=== PATIENT | male | born 1940 | race Caucasian/White ===

== ENCOUNTER 2016-04-16 06:06 | Inpatient (IN) | payer OTHER ==
[2016-04-15 08:56] VITALS: BMI 31.0
[~2016-04-16] VITALS: Ht 177.8 cm; Wt 97.7 kg
[2016-04-16] VITALS (9 sets, daily range): BP systolic 113–148; BP diastolic 65–94; PULSE 59–90; TEMP 36.3–36.8; O2SAT 92–97; Ht 177.8 cm; Wt 97.7 kg
[~2016-04-16 06:06] MED LIST: ACET-1311 PO; APIX1TAB3 PO; DUTA0.5C PO; LACTATED RINGER'S 1000ML 1,000 ML IV SCH; MULT-506 PO; PRLSR20 PO
[2016-04-16] MEDS ORDERED: ROCURONIUM BROMIDE 10 MG/ML 5 ML VIAL ONE (06:28)
[2016-04-16] MEDS ORDERED: ONDANSETRON INJ 2 MG/ML 2 ML VIAL ONE (06:28)
[2016-04-16] MEDS ORDERED: PHENYLEPHRINE HCL INJ 10 MG/ML VIAL ONE (06:28)
[2016-04-16] MEDS ORDERED: DEXAMETHASONE SOD INJ 4 MG/ML VIAL ONE (06:28)
[2016-04-16] MEDS ORDERED: SUCCINYLCHOLINE CHLORIDE 20 MG/ML 10 ML VIAL IV ONE (06:28)
[2016-04-16] MEDS ORDERED: GLYCOPYRROLATE INJ 0.2 MG/ML VIAL ONE (06:28)
[2016-04-16] MEDS ORDERED: FENTANYL CITRATE INJ 50 MCG/1 ML 2 ML VIAL ONE ×2 (06:28→09:27)
[2016-04-16] MEDS ORDERED: LIDOCAINE HCL 2% 2 ML VIAL (20MG/ML) ONE (06:28)
[2016-04-16] MEDS ORDERED: NEOSTIGMINE METHYLSULFATE 5 MG/5 ML SYR ONE (06:28)
[2016-04-16] MEDS ORDERED: EpHEDrine SULFATE INJ 50 MG/ML AMP ONE (06:28)
[2016-04-16] MEDS ORDERED: PROPOFOL IV EMULSION 10 MG/ML 20 ML VIAL IV ONE (06:28)
[2016-04-16] MEDS ORDERED: MIDAZOLAM HCL 1 MG/ML 2ML VIAL ONE (06:28)
[2016-04-16] MEDS ORDERED: BUPIVACAINE LIPOSOME 1/3% 266 MG/20 ML VIAL INFIL ONE (06:54)
--- NOTE | 2016-04-16 08:21 | History & Physical Bridge Note ---
H&P Re-Evaluation Bridge Note: I have examined the patient, reviewed the History & Physical and in the interval since the performance of the History & Physical I have noted the following changes of clinical significance: No changes noted
[2016-04-16] MEDS ORDERED: MEPERIDINE HCL 25 MG/ML CARP IV PRN (08:30)
[2016-04-16] MEDS ORDERED: ATROPINE SULFATE 0.1 MG/ML 5ML SYR IV PRN (08:30)
[2016-04-16] MEDS ORDERED: ONDANSETRON INJ 2 MG/ML 2 ML VIAL IV PRN ×2 (08:30→11:30)
[2016-04-16] MEDS ORDERED: HYDROmorphone INJ 1 MG/ML SYR IV PRN (08:30)
[2016-04-16] MEDS ORDERED: EpHEDrine SULFATE INJ 50 MG/ML AMP IV PRN (08:30)
[2016-04-16] MEDS ORDERED: LABETALOL HCL IV 5 MG/ML 20ML IV PRN (08:30)
--- NOTE | 2016-04-16 10:06 | DIAGNOSTIC IMAGING REPORT ---
FLUOROSCOPIC IMAGES OF THE CHEST CLINICAL HISTORY: NAVIGATIONAL BRONCH WITH FIDUCIAL MARKERS COMPARISON STUDY: Chest CT February 26, 2016. Fluoroscopy time: 1 minute and 40 seconds. FINDINGS: 2 fluoroscopic images were submitted for interpretation during a bronchoscopy. These images demonstrate placement of a fiducial marker within the left upper lobe at site of nodule shown on CT of February 26, 2016. IMPRESSION: Fluoroscopic images from bronchoscopy with fiducial placement within the left upper lobe. Electronically signed by: Peter Smith M.D. 04/16/2016 10:04 AM Dictated Date/Time: 04/16/2016 10:03 AM
[2016-04-16] MEDS ORDERED: MIX: 266 MG EXPAREL + 40 ML INJ SALINE INJ ONE (10:17)
[2016-04-16] MEDS ORDERED: PROGEL PLEURAL AIR LEAK SEALANT 4ML TOP ONE (10:59)
[2016-04-16] MEDS ORDERED: MoRPHine SULFATE 2 MG/ML CARP IV PRN ×2 (11:30→14:00)
[2016-04-16] MEDS: FENTANYL CITRATE INJ 50 MCG/1 ML 2 ML VIAL IV PRN ×2 (12:00→12:25)
--- NOTE | 2016-04-16 12:27 | DIAGNOSTIC IMAGING REPORT ---
CHEST ONE VIEW PORTABLE CLINICAL HISTORY: s/p MAURICIO wedge resection COMPARISON STUDY: Chest CT February 26, 2016 FINDINGS: A left chest tube directed to the apex is in place. Surgical staple line within the left upper lung is noted. There is no pneumothorax. There is gas within the left chest wall as expected. Bibasilar and right midlung opacity is present. There is also mild left upper lung opacity. IMPRESSION: 1. Left chest tube in place. No pneumothorax. 2. Left upper lobe airspace opacity which is likely postsurgical. 3. Scattered additional bilateral opacities which could reflect atelectasis or consolidation. Electronically signed by: Peter Smith M.D. 04/16/2016 12:26 PM Dictated Date/Time: 04/16/2016 12:22 PM
--- NOTE | 2016-04-16 12:54 | Anesthesiology Progress Note ---
Anesthesia Post Op Note Date & Time Apr 16, 2016 at 12:53 Vital Signs Pain Intensity: 4 Vital Signs Past 12 Hours Date Time Temp Pulse Resp B/P Pulse Ox O2 Delivery O2 Flow Rate FiO2 04/16/16 12:45 36.2 60 16 97/76 97 Nasal Cannula 2 04/16/16 12:35 55 15 110/66 96 Nasal Cannula 2 04/16/16 12:25 36.2 63 22 122/59 95 Nasal Cannula 2 04/16/16 12:15 54 12 107/69 96 Nasal Cannula 2 118/53 04/16/16 12:05 36.0 52 15 108/52 99 Nasal Cannula 2 108/52 04/16/16 11:55 51 19 93/60 99 Mask 10 99/47 04/16/16 11:47 54 19 95 Mask 10 104/49 04/16/16 11:42 35.6 57 18 115/54 95 Mask 10 04/16/16 06:54 36.5 71 16 148/94 93 Room Air 04/16/16 06:36 36.5 71 16 148/94 92 Room Air Notes Mental Status: alert / awake / arousable, participated in evaluation Pt Amnestic to Procedure: Yes Nausea / Vomiting: adequately controlled Pain: adequately controlled Airway Patency, RR, SpO2: stable & adequate BP & HR: stable & adequate Hydration State: stable & adequate Anesthetic Complications: no major complications apparent
[2016-04-16] MEDS: METOCLOPRAMIDE HCL INJ 5 MG/ML 2 ML VIAL IV. SCH ×2 (14:26→21:06)
[2016-04-16] MEDS: ACETAMINOPHEN IV 1,000 MG in EMPTY BAG 0 ML IV SCH ×2 (14:26→21:05)
[2016-04-16] MEDS: D5W AND 1/2NSS 1,000 ML IV SCH ×2 (14:30→23:36)
[2016-04-16 14:46] LABS: MEAN CELL VOLUME 87.5 fL (80-100); MEAN CORPUSCULAR HEMOGLOBIN 30.4 pg (25-34); MEAN CORPUSCULAR HGB CONC 34.7 g/dl (32-36); MEAN PLATELET VOLUME 10.3 fL (7.4-10.4); PLATELET COUNT 214 K/uL (130-400); RED BLOOD COUNT 5.37 M/uL (4.7-6.1); WHITE BLOOD COUNT 15.72 K/uL (4.8-10.8)
[2016-04-16 14:53] LABS: PROTHROMBIN TIME (PATIENT) 11.2 SECONDS (9.0-12.0)
[2016-04-16 15:07] LABS: CREATININE 1.1 mg/dl (0.60-1.40)
[2016-04-16] MEDS: CEFAZOLIN IV 2,000 MG in DEXTROSE 5% 50ML 100 ML IV SCH ×2 (15:44→23:36)
[2016-04-16] MEDS: KETOROLAC TROMETHAMINE 15 MG/ML VIAL IV. SCH ×2 (16:19→23:38)
--- NOTE | 2016-04-16 20:32 | OPERATIVE REPORT ---
DATE OF OPERATION: 04/16/2016 PREOPERATIVE DIAGNOSIS: Enlarging left upper lobe mass. POSTOPERATIVE DIAGNOSIS: Inflammatory mass, left upper lobe. PROCEDURE: 1. Navigational bronchoscopy with marking of mass with methylene blue dye and a fiducial marker. 2. Left thoracoscopy with wedge resection of left upper lobe mass. SURGEON: Dr. Patel. GOLD CUTTER: AMAURY Lo. ANESTHESIA: General anesthesia endotracheal intubation using a double-lumen tube. SPECIFICS OF PROCEDURE: Mr. Edge is a 76-year-old male who has a ground-glass opacity in his left upper lobe that became more solid and larger. This is of course concerning and I saw him in the office and told he and his I would like to biopsy this as I felt it may well represent an adenocarcinoma of the lung. On 04/16/2016, the patient underwent uncomplicated navigational bronchoscopy. I placed a methylene blue dye and injected it towards the pleura that was overlying this mass which is probably between 1-2 cm intraparenchymal. I also left a fiducial marker in case we did not see the methylene blue dye. I then did a thoracoscopy on the left and came upon a nice blue otoe-[place] where we had injected the methylene blue. Using a totally thoracoscopic approach with CO2 insufflation, I had excellent visualization and I was able to wedge this mass out without difficulty. Frozen section came back as showing an inflammatory mass. It was definitely abnormal but did not have features of malignancy. At this point, I elected to close and I injected him with Exparel for intrathoracic intercostal block. He tolerated it well. I left the chest tube in place and he was extubated in the room without difficulty with minimal blood loss. PROCEDURE: The patient was brought to the operating room, laid in supine position. He was intubated with a single lumen tube. After an appropriate timeout had been called and given prophylactic antibiotics, the fiberoptic bronchoscope was placed through the endotracheal tube. I closely inspected both the right and left bronchial tree going down into the tertiary of bronchials and saw no evidence of any endobronchial lesions. He also was very little in the way of sputum. I then placed the computer navigation probe from [employer]. After registering both airways nicely, I then used the guide and went into the left upper lobe bronchus and was able to get out to the mass. It should be noted this mass was small. I then positioned myself very close to the mass and put a fiducial marker in place without difficulty under fluoroscopic guidance. We did use the radial ultrasound probe; however, I was not very happy with the appearance, but this was a semi-solid ground-glass opacity. I then directed the tip of the navigational probe towards the pleura about 1 cm or so away and injected 0.5 mL of methylene blue. We then removed the navigational probe and then the bronchoscopy without difficulty. The patient was then switched over to a double lumen tube and placed in a right lateral decubitus position. Left chest prepped, draped in usual sterile fashion. A 5 mm trocar was placed just below and anterior to the tip of the scapula and a 5 mm scope was placed. It could be seen we were intrathoracic and CO2 was infused. We got great excellent collapse of this left lung with one lung ventilation and the CO2 insufflation. I then placed a 10 mm trocar at about the seventh interspace anteriorly and at about the fourth interspace and about neck just anterior to the latissimus dorsi I put another 10 mm trocar. Going in, I was then able to manipulate the lung and came upon the blue about 2 cm in diameter blue otoe-[place]ou[place] on the left upper lobe. This was grasped and pulled upward, I took a generous biopsy using Endo-GUSTAVO stapler and wedged this out and removed the Endobag. While waiting for this to come back, I took down adhesions between the left upper lobe and the mediastinum which were difficult, quite adhesed. It was quite clear why but we did get into some minor oozing. We identified the phrenic nerve and care was taken to avoid injure this. I then dissected out the hilum and identified the main left pulmonary artery as well as the left upper lobe vein. The frozen section came back as an inflammatory mass. At this point, we elected to stop. 266 mg of Exparel was mixed in a total of 60 mL of solution and was used to inject from the 2nd to the 11th rib in each intercostal space to fill the space. The anterior thoracoscopy port then had a 24-Comoran chest tube directed towards the apex, sutured in place with heavy silk suture. 0 Vicryl was used to close the muscle layer of the 10 mm scope and 3-0 Vicryl was used in a subcuticular fashion to close the skin edges of the superior and posterior incisions. Heavy silk sutures were used to tie the chest tube in place. The patient tolerated it well with no air leak at the conclusion of the case. He was awake without difficulty and transported back to the post-anesthesia care unit in stable condition. I attest to the content of the Intraoperative Record and any orders documented therein. Any exceptio ns are noted below.
[2016-04-16] MEDS: DOCUSATE SODIUM 100 MG CAP PO SCH (21:04)
[2016-04-17] VITALS (9 sets, daily range): BP systolic 125–174; BP diastolic 70–81; PULSE 56–76; TEMP 36.3–36.7; O2SAT 92–95
[2016-04-17] MEDS: ACETAMINOPHEN IV 1,000 MG in EMPTY BAG 0 ML IV SCH (05:20)
[2016-04-17] MEDS: METOCLOPRAMIDE HCL INJ 5 MG/ML 2 ML VIAL IV. SCH (05:21)
[2016-04-17 07:16] LABS: BASO % 0.1 %; BASO ABS # 0.01 K/uL (0-0.2); COMPLETE YES; EOS % 0.2 %; HEMATOCRIT 43.9 % (42-52); IG% 0.2 %; LYMPH % 10.6 %; LYMPH ABS # 1.37 K/uL (1.2-3.4); MEAN CELL VOLUME 86.9 fL (80-100); MEAN CORPUSCULAR HEMOGLOBIN 29.3 pg (25-34); MEAN CORPUSCULAR HGB CONC 33.7 g/dl (32-36); MEAN PLATELET VOLUME 10.5 fL (7.4-10.4); MONO % 13.1 %; NEUT % 75.8 %; PLATELET COUNT 221 K/uL (130-400); RED BLOOD COUNT 5.05 M/uL (4.7-6.1); WHITE BLOOD COUNT 12.89 K/uL (4.8-10.8)
[2016-04-17] MEDS: DOCUSATE SODIUM 100 MG CAP PO SCH ×2 (07:22→20:25)
[2016-04-17] MEDS: KETOROLAC TROMETHAMINE 15 MG/ML VIAL IV. SCH ×3 (07:22→23:40)
[2016-04-17] MEDS: MULTIVITAMIN TAB PO SCH (07:22)
[2016-04-17] MEDS: PANTOprazole SOD 40 MG TAB PO SCH (07:22)
[2016-04-17] MEDS: ENOXAPARIN 40 MG/0.4 ML SYR SQ SCH (07:23)
[2016-04-17 07:41] LABS: CALCIUM 8.7 mg/dl (8.5-10.1); POTASSIUM 4.1 mmol/L (3.5-5.1)
[2016-04-17] MEDS ORDERED: NURSING VERBAL MED ORDER ONE (09:30)
--- NOTE | 2016-04-17 10:11 | SURGERY PROGRESS NOTE ---
DATE: 04/17/2016 DATE: 04/17/2016. Mr. Edge is seen today 1 day status post a navigational bronchoscopy with marking of a left upper lobe ground-glass opacity with a fiducial marker and methylene blue. I wedged this out on 04/16/2016 and frozen section shows this to be inflammatory. We then closed and I was quite happy with him, however he had an air leak last night that I had not seen earlier. His air leak is small but persistent this morning. He has no subQ air. He has drained very little. I was quite happy with his x-ray. I explained to the patient and his that he is going to have to wait until this leak stops and it is small and hopefully that will be in the next day or so. It is important to note patient eating well. He has been up and ambulating. We will stop all his IVs and have him work on his incentive spirometer. I think he does have some rhonchi in the left lung field, but not unexpected. I think he looks quite good. The pathology is still pending on this mass.
--- NOTE | 2016-04-17 10:12 | DIAGNOSTIC IMAGING REPORT ---
SINGLE VIEW CHEST CLINICAL HISTORY: Status post left upper lobe resection. FINDINGS: An AP, portable, upright chest radiograph is compared to study dated 04/16/2016 and correlated with chest CT dated 02/26/2016. The examination is degraded by portable technique, apical positioning, and patient rotation. The heart is normal for projection. The mediastinal contour is within normal limits. A left apical chest tube is unchanged in position from yesterday. Trace pleural fluid is seen at the left lung base. Sharply marginated left apical densities may represent postoperative change or a small loculated pneumothorax. The right lung is grossly clear. The skeletal structures are osteopenic. The bony thorax is grossly intact. Subcutaneous emphysema is present along the left chest wall. IMPRESSION: 1. A left apical chest tube is unchanged in position. Left apical densities with a sharp margin may represent a small loculated pneumothorax versus postoperative change. 2. The right lung appears clear. Electronically signed by: Behzad Parmar M.D. 04/17/2016 10:10 AM Dictated Date/Time: 04/17/2016 10:06 AM
[2016-04-18] VITALS (9 sets, daily range): BP systolic 129–173; BP diastolic 78–94; PULSE 73–87; TEMP 36.6–37.1; O2SAT 92–96
[2016-04-18] MEDS: MULTIVITAMIN TAB PO SCH (07:16)
[2016-04-18] MEDS: DOCUSATE SODIUM 100 MG CAP PO SCH ×2 (07:16→21:02)
[2016-04-18] MEDS: ENOXAPARIN 40 MG/0.4 ML SYR SQ SCH (07:17)
[2016-04-18] MEDS: PANTOprazole SOD 40 MG TAB PO SCH (07:17)
[2016-04-18] MEDS: KETOROLAC TROMETHAMINE 15 MG/ML VIAL IV. SCH (07:17)
--- NOTE | 2016-04-18 13:18 | SURGERY PROGRESS NOTE ---
DATE: 04/18/2016 HISTORY OF PRESENT ILLNESS: Mr. Edge was seen today on 04/18/2016, 48 hours after his thoracoscopic wedge resection. He has more of an air leak than I expected. I am happy with his chest x-ray from yesterday and he looks great clinically. He is up ambulating in the hallway. He moved his bowels. He has been eating. He is on room air with 96% saturations. He has drained very little from his chest tube. He put out 160 mL total yesterday and only 30 mL through 12 hours today. This pathology is still pending, but at this point, when his air leak resolves, we will let him go home. ROBERT
[2016-04-19 03:29] VITALS: PULSE 74; O2SAT 93
[2016-04-19 07:19] VITALS: O2SAT 93
[2016-04-19 07:29] LABS: CREATININE 0.95 mg/dl (0.60-1.40)
[2016-04-19] MEDS ORDERED: NURSING VERBAL MED ORDER ONE (07:30)
[2016-04-19] MEDS: OXYCODONE/ACETAMINOPHEN 5-325 TAB PO PRN ×3 (07:39→17:47)
[2016-04-19 07:50] VITALS: BP 144/81; PULSE 75; TEMP 36.5; O2SAT 93
--- NOTE | 2016-04-19 08:32 | Anesthesiology Progress Note ---
Anesthesia Post Op Note Date & Time Apr 19, 2016 at 08:31 Vital Signs Vital Signs Past 12 Hours Date Time Temp Pulse Resp B/P Pulse Ox O2 Delivery O2 Flow Rate FiO2 04/19/16 07:50 36.5 75 16 144/81 93 Room Air 04/19/16 07:19 93 Room Air 04/19/16 03:29 74 93 Room Air 04/18/16 23:15 Room Air 04/18/16 22:54 36.6 80 18 138/83 92 Room Air Notes Mental Status: alert / awake / arousable, participated in evaluation Pt Amnestic to Procedure: Yes Nausea / Vomiting: adequately controlled Pain: adequately controlled Airway Patency, RR, SpO2: stable & adequate BP & HR: stable & adequate Hydration State: stable & adequate Anesthetic Complications: no major complications apparent
[2016-04-19] MEDS: MULTIVITAMIN TAB PO SCH (09:39)
[2016-04-19] MEDS: DOCUSATE SODIUM 100 MG CAP PO SCH ×2 (09:39→20:57)
[2016-04-19] MEDS: ENOXAPARIN 40 MG/0.4 ML SYR SQ SCH (09:40)
[2016-04-19] MEDS: PANTOprazole SOD 40 MG TAB PO SCH (11:19)
[2016-04-19] MEDS: GABAPENTIN 100 MG CAP PO SCH ×2 (14:14→20:57)
[2016-04-19 15:31] VITALS: BP 144/83; PULSE 70; TEMP 36.6; O2SAT 93
--- NOTE | 2016-04-19 19:54 | SURGERY PROGRESS NOTE ---
DATE: 04/19/2016 Mr. Edge was seen today with his . He is ambulating in the hallway. He has a fairly significant air leak. I am going to change him over to a Heimlich valve and check a chest x-ray in the morning. He is not draining any fluid from his chest and his last x-ray had no evidence of any effusion. I am still a bit puzzled as to why he would have this significant air leak. At any rate, we will see how things look in the morning. I have explained to the patient and his I may send him home with a Heimlich valve in place.
[2016-04-19 22:40] VITALS: BP 124/77; PULSE 73; TEMP 36.5; O2SAT 92
[2016-04-20] MEDS: OXYCODONE/ACETAMINOPHEN 5-325 TAB PO PRN ×2 (02:31→08:35)
--- NOTE | 2016-04-20 06:39 | DIAGNOSTIC IMAGING REPORT ---
CHEST ONE VIEW PORTABLE CLINICAL HISTORY: Postop wedge resection. Pneumothorax. COMPARISON STUDY: 04/17/2016 FINDINGS: The heart is mildly enlarged. There is aortic tortuosity. The left-sided chest tube remains unchanged in position. There is a left apical pneumothorax the pleural separation 17 mm. There is a small amount of subcutaneous emphysema on the left. There are bibasal protocol opacities, likely atelectatic.[ IMPRESSION: 1. Postsurgical changes in the left 2. Persistent small left apical pneumothorax the pleural separation 17 mm 3. Bibasilar opacities, likely atelectatic Electronically signed by: Zan Moran M.D. 04/20/2016 6:37 AM Dictated Date/Time: 04/20/2016 6:36 AM
[2016-04-20 07:10] VITALS: BP 125/79; PULSE 70; TEMP 36.4; O2SAT 97
[2016-04-20] MEDS ORDERED: OXYC-57 PO (08:03)
[2016-04-20] MEDS ORDERED: DOCU-94 PO (08:03)
--- NOTE | 2016-04-20 08:07 | Discharge Instructions ---
Discharge Instructions Admission Reason for Admission: Left Pulmonary Nodule Discharge Discharge Diagnosis / Problem: Left Pulmonary Nodule Discharge Goals Goal(s): Learn about illness Activity Recommendations Activity Limitations: per Instructions/Follow-up section Lifting Limitations: none . Instructions / Follow-Up Instructions / Follow-Up 1. Appointment with Dr. Patel in 1 week. Office will call you with date and time of appointment. You will need to have a chest x-ray prior to appointment. 2. Do not fly until cleared to do so by Dr. Patel. 3. Drain collection chamber to chest tube as needed. 4. You may not shower until cleared to do so by Jorge Donahue. Current Hospital Diet Patient's current hospital diet: Regular Diet Discharge Diet Recommended Diet: Regular Diet Procedures Procedures Performed: Navigational Bronchoscopy with Fiducial Markers; Left Video-Assisted Thoracoscopy with Left Upper Lobe Wedge Resection Pending Studies Studies pending at discharge: no Medical Emergencies . Who to Call and When: Medical Emergencies: If at any time you feel your situation is an emergency, please call 911 immediately. . Non-Emergent Contact Non-Emergency issues call your: Surgeon Call Non-Emergent contact if: you have a fever, your pain is not controlled, wound has increased drainage . "Provider Documentation" section prepared by Jayy Ly. VTE Core Measure Inpt VTE Proph given/why not?: Enoxaparin (Lovenox)SQ
[2016-04-20] MEDS: DOCUSATE SODIUM 100 MG CAP PO SCH (08:17)
[2016-04-20] MEDS: GABAPENTIN 100 MG CAP PO SCH (08:18)
[2016-04-20] MEDS: ENOXAPARIN 40 MG/0.4 ML SYR SQ SCH (08:20)
[2016-04-20 08:23] VITALS: BP 125/79; PULSE 70; TEMP 36.4; O2SAT 97
[2016-04-20] MEDS: PANTOprazole SOD 40 MG TAB PO SCH (08:34)
[2016-04-20] MEDS: MULTIVITAMIN TAB PO SCH (08:34)
--- NOTE | 2016-04-20 08:36 | DISCHARGE SUMMARY ---
DISCHARGE DIAGNOSIS: Apparent inflammatory mass, left upper lobe. HOSPITAL COURSE: This very nice 76-year-old man who was found to have a ground-glass opacities left upper lobe became more solid and larger, and we were concerned about the possibility of a malignancy. On 04/16/2016, I brought the patient to the operating room and did a navigational bronchoscopy and marked this mass with methylene blue dye as well as a fiducial marker. I then did a thoracoscopy and could see the blue methylene dot quite nicely. We did a wedge resection of this mass and it turned out to be inflammatory. The frozen section showed inflammation. We did not see evidence of malignancy. I closed at that point. We did do an Exparel block. The patient did well. We put him on the 3rd floor and he was ambulating the night after his surgery. He had an air leak; however. He was draining very little in the way of fluid, but he had a continued air leak which was surprising as we did not have one at the time of closure. On postop day 3, we put a Heimlich valve on. He drained very little fluid and his x-ray looked quite good on the morning after on 04/20/2016. He was discharged home with a Heimlich valve. I will see him back next week. We will go over the final pathology. All the rest of his incisions look quite good. He was ambulating in the hallway. He was on room air, tolerating a house diet and had moved his bowels. We did give him Percocets to go home with in addition to his preoperative medications.
[2016-04-20 08:41] VITALS: O2SAT 97
== END 2016-04-20 08:40 | disposition home health service (06) | DRG 167 ==
LOC: ENRESERVTM → ENRESERVDT → C.ACU 06:06 → C.MSN 08:10
PROVIDERS: ADMIT Surgery; ATTEND Surgery
PROC: 0BBG4ZX Excision of Left Upper Lung Lobe, Percutaneous Endoscopic Approach, Diagnostic (ICD-10-PCS; principal; 2016-04-16 08:15)
PROC: 0BJ08ZZ Inspection of Tracheobronchial Tree, Via Natural or Artificial Opening Endoscopic (ICD-10-PCS; 2016-04-16 08:15)
DX: R91.8 Other nonspecific abnormal finding of lung field (principal); J95.812 Postprocedural air leak; N40.1 Benign prostatic hyperplasia with lower urinary tract symptoms; N39.41 Urge incontinence; R35.0 Frequency of micturition; M19.90 Unspecified osteoarthritis, unspecified site; Z79.899 Other long term (current) drug therapy; Z79.01 Long term (current) use of anticoagulants; Z87.442 Personal history of urinary calculi; Z87.440 Personal history of urinary (tract) infections; Z80.8 Family history of malignant neoplasm of other organs or systems; Z83.49 Family history of other endocrine, nutritional and metabolic diseases; Z90.49 Acquired absence of other specified parts of digestive tract; Z82.49 Family history of ischemic heart disease and other diseases of the circulatory system; Z90.79 Acquired absence of other genital organ(s); Z90.81 Acquired absence of spleen

== ENCOUNTER → 2016-04-29 | Outpatient (CLI) | payer OTHER ==
[~2016-04-29] MED LIST changes: +DOCU-94 PO; -LACTATED RINGER'S 1000ML 1,000 ML IV SCH; +OXYC-57 PO; +XRL20 PO
--- NOTE | 2016-04-29 11:53 | DIAGNOSTIC IMAGING REPORT ---
TWO VIEW CHEST CLINICAL HISTORY: Follow-up left-sided surgery. Pneumothorax. FINDINGS: PA and lateral chest radiographs are compared to study dated 04/20/2016 and correlated with chest CT dated 02/26/2016. The the PA view is degraded by patient rotation. The heart is top normal for projection. The mediastinal contour is within normal limits. A left-sided chest tube is again noted. Suture material projects over the left apex. No residual pneumothorax is clearly identified. There is minimal left basilar atelectasis. No pleural effusion is seen. The skeletal structures are osteopenic. The bony thorax is grossly intact. Minimal subcutaneous emphysema is present along the left chest wall. IMPRESSION: 1. A left apical chest tube is in place and suture material projects over the left apex. No definite pneumothorax is identified. 2. No airspace consolidation or pleural effusion is seen. Electronically signed by: Behzad Parmar M.D. 04/29/2016 11:52 AM Dictated Date/Time: 04/29/2016 11:48 AM
== END | disposition home or self-care (01) ==
LOC: C.RAD1850 11:31
PROVIDERS: ATTEND Internal Medicine
DX: R91.1 Solitary pulmonary nodule (principal)

== ENCOUNTER → 2016-05-07 | Outpatient (CLI) | payer OTHER ==
--- NOTE | 2016-05-07 10:59 | DIAGNOSTIC IMAGING REPORT ---
CHEST 2 VIEWS ROUTINE CLINICAL HISTORY: Postoperative examination. Chest tube removal. COMPARISON STUDY: Thyroid second 2017 FINDINGS: Postsurgical changes are present on the left. There is been interval removal of the left-sided chest tube. There is no pneumothorax. There is no acute parenchymal consolidation.[ IMPRESSION: Stable postsurgical changes. Interval removal of the left-sided chest tube. No evidence of pneumothorax. Electronically signed by: Zan Moran M.D. 05/07/2016 10:58 AM Dictated Date/Time: 05/07/2016 10:57 AM
== END | disposition home or self-care (01) ==
LOC: C.RAD1850 10:46
PROVIDERS: ATTEND Surgery
DX: R91.1 Solitary pulmonary nodule (principal)

== ENCOUNTER → 2016-06-14 | Outpatient (CLI) | payer OTHER ==
--- NOTE | 2016-06-14 10:37 | DIAGNOSTIC IMAGING REPORT ---
RIGHT ANKLE 3 VIEWS CLINICAL HISTORY: Right ankle pain and swelling. FINDINGS: 3 views of the right ankle are obtained. No prior studies are available for comparison at the time of dictation. The skeletal structures are osteopenic. No fracture is seen. The ankle mortise appears intact. There is a large plantar calcaneal enthesophyte. Degenerative spurring is seen along the anterior tibial plafond. No ankle joint effusion is identified. Diffuse soft tissue edema is noted. Atherosclerotic calcification is seen in the regional arteries. Venous varices are present in the medial calf. IMPRESSION: 1. Soft tissue edema with no acute bony abnormality seen in the right ankle. 2. Osteopenia and degenerative change as above. Electronically signed by: Behzad Parmar M.D. 06/14/2016 10:35 AM Dictated Date/Time: 06/14/2016 10:34 AM
== END | disposition home or self-care (01) ==
LOC: C.RAD1850 10:21
PROVIDERS: ATTEND Nurse Practitioner Family
DX: M25.571 Pain in right ankle and joints of right foot (principal); M25.471 Effusion, right ankle

== ENCOUNTER → 2016-08-04 | Outpatient (CLI) | payer OTHER ==
--- NOTE | 2016-08-04 08:06 | DIAGNOSTIC IMAGING REPORT ---
CHEST CT WITHOUT CONTRAST CT DOSE: 566.76 mGycm HISTORY: R91.1 Pulmonary nodule, [id number] TECHNIQUE: Multiaxial CT images of the chest were performed without contrast. COMPARISON: Chest CT 02/26/2016. FINDINGS: Interval sutures material within the left upper lobe suggesting prior wedge resection. However, the 12 mm mixed groundglass and solid nodule appears to still be present and is immediately posterior to the suture material best seen on image 64 of 311. Thickening along the suture material favors postoperative change. Stable 3 mm nodule within the left lower lobe on image 200. Stable punctate calcified granuloma within the right upper lobe on image 173. No new pulmonary nodule identified. No pleural effusions. No pneumothorax. The central airways are patent. Normal adrenal glands. Stable hypodense lesions within the liver. The dominant 6 cm lesion demonstrates central calcification. The heart is normal in size. Normal caliber thoracic aorta. A stable 3 mm groundglass nodule within the left upper lobe on image 93. IMPRESSION: 1. Interval suture material within the left upper lobe suggesting prior wedge resection. However, the 12 mm mixed groundglass and solid nodule appears to be present despite the wedge resection and is located immediately posterior to the suture material as described above. Repeat wedge resection should be considered as this nodule is considered neoplastic until proven otherwise. 2. Additional stable subcentimeter nodules as described above. No new pulmonary nodules identified. Electronically signed by: Emir Velazquez M.D. 08/04/2016 8:04 AM Dictated Date/Time: 08/04/2016 7:52 AM
== END | disposition home or self-care (01) ==
LOC: C.CTS 07:28
PROVIDERS: ATTEND Surgery
DX: R91.8 Other nonspecific abnormal finding of lung field (principal)

== ENCOUNTER 2016-11-04 16:12 | Emergency (ER) | payer OTHER ==
[~2016-11-04] VITALS: Ht 175.3 cm; Wt 104.1 kg
[~2016-11-04 16:12] MED LIST changes: -XRL20 PO
[2016-11-04 16:18] VITALS: TEMP 36.5; Ht 175.3 cm; Wt 104.1 kg
[2016-11-04] MEDS ORDERED: ALUMINUM/MAGNESIUM SUSP 30 ML UDC PO STA (16:45)
--- NOTE | 2016-11-04 16:47 | EMERGENCY ROOM VISIT NOTE ---
History Report prepared by Yue: King Fisher Under the Supervision of: Dr. Julieta Do D.O. First contact with patient: 16:34 Chief Complaint: CHEST PAIN Stated Complaint: CHEST PAINS Nursing Triage Summary: Left sided pressure/sharp CP for a few weeks intermittently. Denies CP at this time. Pt verbalizes "I have a lot of acid in my mouth, the pain came back today after I ate an ice cream cone but it is gone now". Hx A. Fib and PEs, takes Xarelto. History of Present Illness The patient is a 76 year old male with a history of atrial fibrillation and DVT' s who presents to the Emergency Room with complaints of episodes of left-sided chest pain that started 2 weeks ago. He says that the pain is only on the left side, and is a little sharp with no radiation. The patient says that the episodes only last around 5 to 10 minutes, and nothing in particular typically triggers it. He notes that during the episodes, his hands get a little clammy and he has to take a deep breath, but he denies any lightheadedness, dizziness, or nausea. The patient adds that earlier today, he ate an ice cream cone, and shortly thereafter, an episode came on. He notes that this was the most intense episode of pain he has had so far. The pain went away on its own, and he currently denies any pain. The patient notes that he has a lot of acid in his mouth. He denies any cough, recent cold symptoms, urinary symptoms, or bowel issues. No leg swelling, no change in urine. The patient says that he has had some chest pain off and on ever since he had lung surgery in March to have a nodule taken out. The patient says that he takes Xarelto 20 mg and Omeprazole daily. He has no history of CHF. Denies any recent trauma, no change in any meds, hasn't skipped any doses of meds, no change in diet. Pt doesn't routinely follow with cardiology. States this doesn't feel like when he had a.fib previously. Source of History: patient, spouse/significant other Onset: 2 weeks ago Position: chest (left) Quality: sharp Timing: other (episodes) Associated Symptoms: No cough, No nausea, No urinary symptoms Note: Associated symptoms: Clammy hands. Has to take a deep breath during episodes. Denies lightheadedness, dizziness, recent cold symptoms, bowel issues. Review of Systems See HPI for pertinent positives & negatives. A total of 10 systems reviewed and were otherwise negative. Past Medical & Surgical Medical Problems: (1) Bladder stone (2) Lung mass (3) New onset atrial fibrillation (4) Pulmonary embolism Family History Cancer FATHER (Mesothelioma) Social History Smoking Status: Never Smoker Alcohol Use: none Drug Use: none Marital Status: Occupation Status: retired Current/Historical Medications Scheduled Dutasteride (Avodart), 0.5 MG PO QAM Multivitamin (Multivitamin), 1 TAB PO QAM Omeprazole (Prilosec), 20 MG PO QAM Rivaroxaban (Xarelto), 20 MG PO QPM Allergies Coded Allergies: Sulfamethoxazole w/Trimethoprim (Verified Allergy, Unknown, RASH, 04/16/16) Physical Exam Vital Signs Date Time Temp Pulse Resp B/P (MAP) Pulse Ox O2 Delivery O2 Flow Rate FiO2 11/04/16 20:56 62 20 146/82 94 Room Air 11/04/16 20:42 67 11/04/16 20:17 62 23 92 11/04/16 20:01 164/80 11/04/16 19:47 63 24 93 11/04/16 19:31 141/96 11/04/16 19:20 95 Room Air 11/04/16 19:17 57 20 93 11/04/16 19:01 146/90 11/04/16 18:53 139/94 11/04/16 18:52 159/83 11/04/16 18:50 140/85 11/04/16 18:50 58 17 140/85 95 Room Air 58 159/83 61 139/94 11/04/16 18:49 57 16 131/92 92 Room Air 11/04/16 18:48 131/92 11/04/16 18:42 58 94 11/04/16 18:12 58 13 92 11/04/16 18:01 141/86 11/04/16 17:42 63 14 92 11/04/16 17:31 150/93 11/04/16 17:12 57 11 147/88 94 11/04/16 17:06 98 Room Air 11/04/16 17:05 94 Room Air 11/04/16 16:51 61 20 169/88 98 Room Air 11/04/16 16:49 99 Room Air 11/04/16 16:48 169/88 11/04/16 16:42 65 22 11/04/16 16:38 61 11/04/16 16:18 36.5 67 18 162/100 94 Room Air 11/04/16 16:18 94 Room Air Physical Exam GENERAL: alert, well appearing, well nourished, no distress, non-toxic EYE EXAM: normal conjunctiva, PERRL and EOM's grossly intact OROPHARYNX: no exudate, no erythema, lips, buccal mucosa, and tongue normal and mucous membranes are moist NECK: supple, no nuchal rigidity, no adenopathy, non-tender LUNGS: Clear to auscultation. Normal chest wall mechanics, no w/r/r HEART: no murmurs, S1 normal and S2 normal ABDOMEN: abdomen soft, non-tender, normo-active bowel sounds, no masses, no rebound or guarding. BACK: Back is symmetrical on inspection and there is no deformity, no midline tenderness, no CVA tenderness. SKIN: no rashes and no bruising UPPER EXTREMITIES: upper extremities are grossly normal. LOWER EXTREMITIES: No pitting edema, normal pulses and cap refill. NEURO EXAM: Normal sensorium, cranial nerves II-XII grossly intact, normal speech, no gross weakness of arms, no gross weakness of legs. Gross sensation intact. Medical Decision & Procedures ER Provider Diagnostic Interpretation: X-ray results have been interpreted by the radiologist and reviewed by me. CHEST ONE VIEW PORTABLE CLINICAL HISTORY: chest pain dyspnea COMPARISON STUDY: 05/07/2016 FINDINGS: Chronic fibrotic changes left hemithorax. Diaphragms smooth. Lungs are considered clear. Mild emphysematous change. IMPRESSION: Chronic change. No acute process. The above report was generated using voice recognition software. It may contain grammatical, syntax or spelling errors. Electronically signed by: Mitchell Gary M.D. 11/04/2016 5:18 PM Dictated Date/Time: 11/04/2016 5:16 PM Laboratory Results 11/04/16 16:35 Red Blood Count 5.48, Mean Corpuscular Volume 87.0, Mean Corpuscular Hemoglobin 30.5, Mean Corpuscular Hemoglobin Concent 35.0, Mean Platelet Volume 10.4, Neutrophils (%) (Auto) 56.9, Lymphocytes (%) (Auto) 31.3, Monocytes (%) (Auto) 9.4, Eosinophils (%) (Auto) 2.0, Basophils (%) (Auto) 0.2, Neutrophils # (Auto) 4.64, Lymphocytes # (Auto) 2.55, Monocytes # (Auto) 0.77, Eosinophils # (Auto) 0.16, Basophils # (Auto) 0.02 11/04/16 16:35 Test 11/04/16 16:35 11/04/16 19:24 White Blood Count 8.16 K/uL (4.8-10.8) Red Blood Count 5.48 M/uL (4.7-6.1) Hemoglobin 16.7 g/dL (14.0-18.0) Hematocrit 47.7 % (42-52) Mean Corpuscular Volume 87.0 fL (80-100) Mean Corpuscular Hemoglobin 30.5 pg (25-34) Mean Corpuscular Hemoglobin Concent 35.0 g/dl (32-36) Platelet Count 252 K/uL (130-400) Mean Platelet Volume 10.4 fL (7.4-10.4) Neutrophils (%) (Auto) 56.9 % Lymphocytes (%) (Auto) 31.3 % Monocytes (%) (Auto) 9.4 % Eosinophils (%) (Auto) 2.0 % Basophils (%) (Auto) 0.2 % Neutrophils # (Auto) 4.64 K/uL (1.4-6.5) Lymphocytes # (Auto) 2.55 K/uL (1.2-3.4) Monocytes # (Auto) 0.77 K/uL (0.11-0.59) Eosinophils # (Auto) 0.16 K/uL (0-0.5) Basophils # (Auto) 0.02 K/uL (0-0.2) RDW Standard Deviation 45.9 fL (36.4-46.3) RDW Coefficient of Variation 14.4 % (11.5-14.5) Immature Granulocyte % (Auto) 0.2 % Immature Granulocyte # (Auto) 0.02 K/uL (0.00-0.02) D-Dimer 190 ug/L FEU (0-500) Anion Gap 5.0 mmol/L (3-11) Est Creatinine Clear Calc Drug Dose 65.8 ml/min Estimated GFR () 74.1 Estimated GFR (Non- 64.0 BUN/Creatinine Ratio 14.4 (10-20) Calcium Level 9.2 mg/dl (8.5-10.1) Total Bilirubin 0.4 mg/dl (0.2-1) Aspartate Amino Transf (AST/SGOT) 20 U/L (15-37) Alanine Aminotransferase (ALT/SGPT) 26 U/L (12-78) Alkaline Phosphatase 75 U/L (45-117) Pro-B-Type Natriuretic Peptide 43 pg/ml (0-1800) Total Protein 7.2 gm/dl (6.4-8.2) Albumin 3.4 gm/dl (3.4-5.0) Globulin 3.8 gm/dl (2.5-4.0) Albumin/Globulin Ratio 0.9 (0.9-2) Lipase 129 U/L (73-393) Chemistry Specimen Hemolysis Troponin I < 0.015 ng/ml (0-0.045) Laboratory results per my review. Medications Administered Medications (Trade) Dose Ordered Sig/Altaf Route Start Time Stop Time Status Last Admin Dose Admin Al Hydroxide/Mg Hydroxide (Maalox Susp) 30 ml NOW STAT PO 11/04/16 16:45 11/04/16 16:47 DC 11/04/16 17:17 30 ML ECG Indication: chest pain Rate (beats per minute): 59 Rhythm: sinus bradycardia Findings: PAC (occasional), no acute ischemic change, other (normal axis, normal intervals) ED Course 163: The patient was evaluated in room B3B. A complete history and physical exam was performed. 164: Ordered Maalox Susp 30 ml PO. 1743: I reevaluated and updated the patient. 2051: I reevaluated the patient and she feels well with no reoccurrence of symptoms. The patient verbally expressed understanding and agreement of the treatment plan. The patient will be discharged. Medical Decision Review of eMAR: In March, patient had a VATS with a left upper lobe wedge resection, In November of 2015, patient had an echo with an LVEF of 55-60%, no significant valve abnormalities. In November of 2015, patient had paroxysmal atrial fibrillation secondary to PE. No recurrence noted in EMR after. Differential diagnosis: Etiologies such as cardiac ischemia, aortic dissection, pulmonary embolism, pneumonia, pneumothorax, musculoskeletal, infections, pericarditis, myocarditis , esophageal rupture, gastrointestinal, as well as others were entertained. HEART score 2 Pt with atypical description of chest pain over the last several weeks. No pattern/exacerbating factors, not specifically associated with exertion. Trop neg x 2 here, pt NSR throughout. Mild hypertension noted, likely some essential and in part situational, doubt hypertensive urgency and no evidence of emergency. No cp with exertion. Labs otw reassuring. Mild GERD sx relieved with maalox. Possible related to G origin. Doubt PE given xarelto daily. No evidence for CHF. CXR unchanged. Doubt vascular etiology. Did not feel required emergent CT, scheduled for outpt one as follow-up next week per . Doubt related to complication of procedure in March. Discussed with pt f/u with PCP and with cardiology as a precaution, discussed avoidance of strenuous activity, discussed avoidance of acidity in his diet. Discussed sx to watch/return for, he verbalized understanding and was agreeable with the plan. Medication Reconcilliation Current Medication List: was personally reviewed by me Blood Pressure Screening Patient's blood pressure: Elevated blood pressure Blood pressure disposition: Elevated BP felt to be situational Impression Primary Impression: Left sided chest pain Additional Impression: Hypertension Scribe Attestation The scribe's documentation has been prepared under my direction and personally reviewed by me in its entirety. I confirm that the note above accurately reflects all work, treatment, procedures, and medical decision making performed by me. Departure Information Dispostion Home / Self-Care Referrals Amanda Spencer (PCP) Patient Instructions My [facility] Additional Instructions Please call and follow-up with your family doctor regarding your weeks of chest pain. Please also discuss with them seeing cardiology as a precaution. Please continue your medications as prescribed. Please avoid any strenuous activity or heavy lifting until you are otherwise seen. If you have any recurrent symptoms of chest pain, develop trouble breathing, dizziness, vomiting, sweating , the pain changes in location or radiates into your neck/back/arms, or you have any other new or concerning symptoms, please return to the emergency room. Problem Qualifiers Additional Impression: Hypertension Hypertension type: essential hypertension Qualified Codes: I10 - Essential ( primary) hypertension
[2016-11-04 16:55] LABS: BASO % 0.2 %; BASO ABS # 0.02 K/uL (0-0.2); COMPLETE YES; HEMATOCRIT 47.7 % (42-52); IG% 0.2 %; LYMPH % 31.3 %; LYMPH ABS # 2.55 K/uL (1.2-3.4); MEAN CORPUSCULAR HEMOGLOBIN 30.5 pg (25-34); MEAN PLATELET VOLUME 10.4 fL (7.4-10.4); MONO % 9.4 %; NEUT % 56.9 %; PLATELET COUNT 252 K/uL (130-400); RED BLOOD COUNT 5.48 M/uL (4.7-6.1); WHITE BLOOD COUNT 8.16 K/uL (4.8-10.8)
[2016-11-04] MEDS ORDERED: XRL20 PO (16:55)
[2016-11-04 17:19] LABS: ALT/SGPT 26 U/L (12-78); AST/SGOT 20 U/L (15-37); BLOOD UREA NITROGEN 16 mg/dl (7-18); BUN/CREATININE RATIO 14.4 (10-20); CALCIUM 9.2 mg/dl (8.5-10.1); CARBON DIOXIDE 28 mmol/L (21-32); CHLORIDE 108 mmol/L (98-107); GLUCOSE 88 mg/dl (70-99); POTASSIUM 3.9 mmol/L (3.5-5.1); SODIUM 141 mmol/L (136-145)
--- NOTE | 2016-11-04 17:19 | DIAGNOSTIC IMAGING REPORT ---
CHEST ONE VIEW PORTABLE CLINICAL HISTORY: chest pain dyspnea COMPARISON STUDY: 05/07/2016 FINDINGS: Chronic fibrotic changes left hemithorax. Diaphragms smooth. Lungs are considered clear. Mild emphysematous change. IMPRESSION: Chronic change. No acute process. The above report was generated using voice recognition software. It may contain grammatical, syntax or spelling errors. Electronically signed by: Mitchell Gary M.D. 11/04/2016 5:18 PM Dictated Date/Time: 11/04/2016 5:16 PM
[2016-11-04 17:24] LABS: ALB/GLOB RATIO 0.9 (0.9-2); ALKALINE PHOSPHATASE 75 U/L (45-117)
[2016-11-04 20:56] VITALS: BP 146/82; PULSE 62; O2SAT 94
== END 2016-11-04 21:08 | disposition home or self-care (01) ==
LOC: C.EDB 16:12
DX: R07.9 Chest pain, unspecified (principal); I10 Essential (primary) hypertension; I48.91 Unspecified atrial fibrillation; Z86.711 Personal history of pulmonary embolism; Z87.442 Personal history of urinary calculi; Z79.899 Other long term (current) drug therapy; Z88.2 Allergy status to sulfonamides; Z80.9 Family history of malignant neoplasm, unspecified

== ENCOUNTER → 2016-11-23 | Outpatient (CLI) | payer OTHER ==
[~2016-11-23] MED LIST changes: -ACET-1311 PO; -APIX1TAB3 PO; -DOCU-94 PO; -OXYC-57 PO; +XRL20 PO
--- NOTE | 2016-11-23 08:52 | DIAGNOSTIC IMAGING REPORT ---
(CHEST) THORAX WITHOUT CT DOSE: 664.03 mGycm CLINICAL HISTORY: 76 years-old Male with R91.1 Pulmonary nodule, leftF.UP. CT [id number]. Follow-up study status post wedge resection of the left upper lobe TECHNIQUE: Multiaxial CT images of the chest were performed without contrast. A dose lowering technique was utilized adhering to the principles of ALARA. COMPARISON: CT chest 08/04/2016 and 02/26/2016. FINDINGS: No dominant thyroid nodule identified. There is a small right upper paratracheal lymph node seen which is mildly prominent, 1.6 x 0.8 cm, unchanged. Nonenlarged AP window lymph node is again seen, 5 mm in short axis, also unchanged. Heart is normal in size with small pericardial effusion. Coronary arterial calcifications are present. There is mild atherosclerosis of the thoracic aorta. Pulmonary arterial tree is mildly dilated, 3.4 cm transversely. There is no pneumothorax or pleural effusion. Suture material with pleural parenchymal scarring involves the left upper lobe compatible with prior wedge resection. 1.3 x 0.9 cm opacity associated with the suture material is unchanged suggesting associated pleural parenchymal scarring with atelectasis. There is a focal nodular opacity with irregular spiculated margins and surrounding groundglass density posterior to the suture material seen on image 91 of the axial series within the left upper lobe, 0.9 x 0.8 cm, unchanged from comparison study, again a suspicious finding. 3 mm noncalcified pulmonary nodule of the left upper lobe is unchanged as seen on image 121. No new pulmonary nodules are identified. There is mild bibasilar atelectasis. The central airways are patent. Multiple low attenuating lesions are again seen throughout the hepatic parenchyma, largest which involves the hepatic dome, 6.0 x 2.9 cm with central calcification. Unchanged partially imaged left greater than right renal cysts. IMPRESSION: 1. Evidence of prior left upper lobe wedge resection with unchanged associated pleural parenchymal scarring. There is a focal noncalcified left upper lobe pulmonary nodule again seen posterior inferior to the suture material measuring up to 9 mm with spiculated and groundglass margins, unchanged from comparison study which is again suspicious for possible bronchogenic carcinoma. Close follow-up is needed. 2. Stable pulmonary nodules without new nodules identified. 3. No new adenopathy. Electronically signed by: Pal Payne M.D. 11/23/2016 8:51 AM Dictated Date/Time: 11/23/2016 8:16 AM
== END | disposition home or self-care (01) ==
LOC: C.CTS 07:58
PROVIDERS: ATTEND Surgery
DX: R91.1 Solitary pulmonary nodule (principal); R91.8 Other nonspecific abnormal finding of lung field

== ENCOUNTER → 2017-01-11 | Outpatient (CLI) | payer OTHER ==
--- NOTE | 2017-01-11 10:43 | DIAGNOSTIC IMAGING REPORT ---
ULTRASOUND ABDOMEN COMPLETE CLINICAL HISTORY: Esophageal varices. COMPARISON STUDY: Abdominal CT dated 11/17/2015. TECHNIQUE: Real-time, grayscale, and color flow sonography of the abdomen was performed. Images are reviewed in the transverse and longitudinal planes. FINDINGS: Liver: The liver is normal in size and echotexture. There is no intrahepatic biliary ductal dilatation. The main portal vein is patent. A 1.0 cm cyst is incidentally noted in the left lobe. A calcification containing lesion within the central liver seen on prior CT scans was not apparent by ultrasound. Gallbladder: The gallbladder is normal in appearance. No gallstones are identified. There is no gallbladder wall thickening or pericholecystic fluid. A sonographic Delgado's sign is reportedly absent. The common bile duct measures up to 0.4 cm in diameter. Pancreas: Visualized portions of the pancreatic head and body are normal in appearance. The splenic vein is patent. Spleen: The spleen is atrophic, measuring 6.5 cm in length. Kidneys: The kidneys demonstrate cortical atrophy and are without hydronephrosis. The right kidney measures 12.1 cm in length and the left kidney measures 12.3 cm in length. No shadowing calculi are identified. Small bilateral renal cysts measure up to 2.3 cm. Abdominal vasculature: Visualized portions of the abdominal aorta are normal in appearance. Ascites: None. IMPRESSION: 1. No acute sonographic abnormality is identified. 2. No gallstones are seen. Electronically signed by: Behzad Parmar M.D. 01/11/2017 10:42 AM Dictated Date/Time: 01/11/2017 10:34 AM
== END | disposition home or self-care (01) ==
LOC: C.ULTR 09:48
PROVIDERS: ATTEND Internal Medicine Gastroenterology
DX: I85.00 Esophageal varices without bleeding (principal)

== ENCOUNTER → 2017-02-28 | Outpatient (CLI) | payer OTHER ==
--- NOTE | 2017-02-28 09:43 | DIAGNOSTIC IMAGING REPORT ---
PET/CT SKULL-THIGH HISTORY: Lung nodule postoperative nodule TECHNIQUE: PET/CT was performed from the base of the skull through the pelvis following the intravenous administration of 15.4 mCi of F18-FDG. Non-contrast CT imaging was performed over the same range without breath-hold for attenuation correction of PET images and anatomic correlation, but not for primary interpretation as it is not of standard diagnostic quality. CT DOSE: COMPARISON: 11/23/2016 FINDINGS: HEAD AND NECK: There is no FDG-avid disease or significant lymphadenopathy in the imaged portions of the head and the neck. CHEST: There is a chest is similar compared to the prior study. Findings of a partial left upper lobe wedge resection are again noted. Residual nodularity associated with the suture line as well as immediately posterior to the suture line appears to be similar based on the fused CT images. It has not changed significantly compared to the prior exam. There is a subtle increase in metabolic activity with SUVs of 1.9 at maximum. There is been no significant change in dimension of the scarlike densities or produces described nodule posterior to the scar. Lungs otherwise show unremarkable metabolic activity characteristics. There is no significant metabolically active mediastinal or hilar adenopathy. ABDOMEN/PELVIS: Below the diaphragm, tracer is distributed physiologically in the gastrointestinal and genitourinary tracts. There is no significant lymphadenopathy and no FDG-avid disease. MUSCULOSKELETAL: There is no FDG-avid or destructive bone lesion. IMPRESSION: 1. indeterminate scan. 2. The region of nodularity at the operative suture line as well as the nodular density immediately posterior to this region remain unchanged on the current CT evaluation, and show indeterminate SUV metabolic activity characteristics. 3. Maximum SUV is 1.9. 4. This potentially is on a postoperative basis, although it is impossible to exclude the possibility of a focal recurrent neoplastic change. 5. Close CT follow-up to evaluate for interval change versus a repeat PET scanning at a clinically appropriate timeframe is suggested. The above report was generated using voice recognition software. It may contain grammatical, syntax or spelling errors. Electronically signed by: Mitchell Gary M.D. 02/28/2017 9:42 AM Dictated Date/Time: 02/28/2017 9:37 AM
== END | disposition home or self-care (01) ==
LOC: C.PET 07:03
PROVIDERS: ATTEND Surgery
DX: R91.1 Solitary pulmonary nodule (principal)

== ENCOUNTER 2017-03-10 07:34 | Day surgery (SDC) | payer OTHER ==
[~2017-03-10] VITALS: Ht 175.3 cm; Wt 99.0 kg
[2017-03-10] MEDS ORDERED: LIDOCAINE/EPINEPHRINE 1% INJ 50 ML VIAL ONE (07:50)
[2017-03-10] MEDS ORDERED: RANI150T3 PO (08:14)
[2017-03-10 08:18] VITALS: BP 143/69; PULSE 64; TEMP 36.4; O2SAT 95; Ht 175.3 cm; Wt 99.0 kg
--- NOTE | 2017-03-10 08:38 | Procedure Note ---
Pre-Mod Sedation Assessment General Date of Moderate Sedation: Mar 10, 2017. Review Cardiovascular: regular rate, rhythm, no edema Abdomen: normal bowel sounds, non tender Lungs: chest non-tender, lungs clear Airway Class: III Pre-Sedation Airway Assessment Oral Cavity: Dental Abnormalities Able to Visualize Vocal Cords: No Short Thick Neck: No Hx of Sleep Apnea: No Smoking Status: Never Smoker Mallampati Classification: Class III ASA Classification: Class III Procedure Planning Contraindications-for Mod Sed: None Yes Notes The planned sedation has been discussed with the patient and consent obtained. I have identified the patient, determined the appropriateness of sedation and have assessed the patient immediately prior to the procedure. All medicine(s) and interventions are by my order.
--- NOTE | 2017-03-10 08:45 | History and Physical ---
History & Physical Date Mar 10, 2017. History of Present Illness Mr. 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 Patel. He has been followed by him for a left upper lobe nodule status post thorascopic wedge resection and repeated surveillance chest imaging. At his last visit he endorsed persistent right lower extremity pain. Patient reports varicose veins for decades. He has had at least 2 episodes of DVT. First episode occurred 2001 in the setting of abdominal surgery and prolonged immobility. At that time treated with coumadin for 3 months. Most recent episode occurred in November of 2015 which occurred after cystoscopy and ureteral stent placement for nephrolithiasis. At that time was noted to have bilateral PEs and lower extremity ultrasound showed right posterior tibial vein DVT as well as superficial venous thrombosis involving the right GSV from the proximal to mid calf. He has been maintained on Xarelto since. Recently has been endorsing near constant right lower extremity distal pain/ aching. This is in part improved with the use of compression stockings. He states though continued struggles placing his compression stockings and despite their use he continues to have significant swelling/edema and discomfort, as well as significant bruising around his varicosities. Past Medical/Surgical History Medical Problems: (1) Bladder stone (2) Lung mass (3) New onset atrial fibrillation (4) Pulmonary embolism Additional History Hepatic Disease: No Endocrine Disorder: No Kidney Disease: No Hypertension: Yes Heart Disease: Yes Bleeding Tendencies: Infectious Diseases: No Allergies Coded Allergies: Sulfamethoxazole w/Trimethoprim (Verified Allergy, Unknown, RASH, 03/10/17 ) Home Medications Scheduled Dutasteride (Avodart), 0.5 MG PO QAM Multivitamin (Multivitamin), 1 TAB PO QAM Omeprazole (Prilosec), 20 MG PO QAM Ranitidine Hcl (Zantac), 1 TAB PO BID Rivaroxaban (Xarelto), 20 MG PO QPM Physical Examination Skin: warm/dry Eyes: normal inspection ENT: normal ENT inspection Neck: supple Respiratory/Chest: lungs clear Cardiovascular: regular rate, rhythm, no edema, no murmur Abdomen / GI: normal bowel sounds Extremities: + pertinent finding (varicosities, swelling.) Neurologic/Psych: no motor/sensory deficits ASA Classification: ASA Class III Plan of Treatment Right GSV RFA
[2017-03-10] MEDS ORDERED: SODIUM CHLORIDE 0.9% 1000ML 1,000 ML IV SCH (09:00)
[2017-03-10] MEDS ORDERED: LIDOCAINE HCL 1% 20 ML VIAL ONE (10:09)
[2017-03-10] MEDS ORDERED: FENTANYL CITRATE INJ 50 MCG/1 ML 2 ML VIAL ONE (10:10)
[2017-03-10] MEDS ORDERED: MIDAZOLAM HCL 1 MG/ML 2ML VIAL ONE (10:10)
[2017-03-10 10:22] VITALS: BP 143/69; PULSE 64; TEMP 36.4; O2SAT 95
[2017-03-10] MEDS ORDERED: LIDOCAINE HCL 1% 20 ML VIAL SQ ONE (10:52)
[2017-03-10] MEDS ORDERED: FENTANYL CITRATE INJ 50 MCG/1 ML 2 ML VIAL IV ONE ×2 (10:54→11:09)
[2017-03-10] MEDS ORDERED: MIDAZOLAM HCL 1 MG/ML 2ML VIAL IV ONE ×2 (10:54→11:08)
[2017-03-10] MEDS ORDERED: ORM MISCELLANEOUS MED XX ONE (11:23)
--- NOTE | 2017-03-10 11:28 | Procedure Note ---
Post-Mod Sedation Assessment General Date of Moderate Sedation Mar 10, 2017. Vital Signs: Vital Signs Past 12 Hours Date Time Temp Pulse Resp B/P (MAP) Pulse Ox O2 Delivery O2 Flow Rate FiO2 03/10/17 10:22 36.4 64 18 143/69 95 Room Air 03/10/17 08:18 36.4 64 18 143/69 (93) 95 Room Air Review - Discharge Criteria Vital Signs Stable: Yes Alert/Oriented/Conversant: Yes Returned to Baseline Mental St: Yes Nausea Absent/Minimal: Yes Pain/Discomfort/Absent/Minimal: Yes Normal/Baseline Respirations: Yes Active Bleeding?: No Pt Received D/C Instructions: N/A Prescriptions Given: None Specific Proced. D/C Criteria Distal Pulses Present (Cardiac: Yes Groin site assessed-Card Cath: N/A Voided Prior To Discharge: N/A Discharged Patients Adult Escort/Transportation: Yes
--- NOTE | 2017-03-10 11:32 | [facility] Operative Report ---
Operative Report Operative Date Mar 10, 2017. Pre-Operative Diagnosis Peripheral Artery Disease Post-Operative Diagnosis Same Procedure(s) Performed Right Greater Saphenous Vein Radiofrequency Ablation, Moderate Sedation from 1054-11:[address] Hdz Nurses' Aide Surgeon(s) Irais Estimated Blood Loss 6 Findings Dilated Right GSV. Distal/calf GSV superficial venous thrombosis Specimens none Drains None Anesthesia Moderate Complication(s) None Disposition Recovery Room / PACU Indications CVI, lower extremity pain, recurrent superficial venous thrombosis. Description of Procedure US guided access Right GSV above the knee. Catheter inserted, 2.5cm from SFJ. Tumescent injected. US confirmed not in deep system. 3:00, 9 cycles of RFA right GSV. No complications. Patient tolerated well. US confirmed no DVT post procedure. I attest to the content of the Intraoperative Record and any orders documented therein. Any exceptions are noted below.
[2017-03-10 11:35] VITALS: BP 120/71; PULSE 63; TEMP 36.6; O2SAT 94
--- NOTE | 2017-03-10 11:35 | Discharge Instructions ---
Discharge Instructions Procedure Procedure Date: Mar 10, 2017. Reason for Visit: Chronic Venous Insufficiency. Discharge Discharge Date: Mar 10, 2017. Discharge Diagnosis: Chronic venous insufficiency Last Recorded Wt (Kilograms): 99 Anesthesia Post Anesthesia Instructions: If you have had General Anesthesia or IV Sedation: * Do not drive today. * Resume driving when surgeon permits. * Do not make important decisions or sign legal documents today. * Call surgeon for: 1. Temperature elevations greater than 101 degrees F. 2. Uncontrollable pain. 3. Excessive bleeding. 4. Persistent nausea and vomiting. 5. Medication intolerance (nausea, vomiting or rash). * For nausea and vomiting use only clear liquids such as: tea, soda, bouillon until nausea subsides, then gradually increase diet as tolerated. * If you have any concerns or questions, call your surgeon's office. If physician is unavailable and it is an emergency, call 911 or go to the nearest emergency room. Instructions Activity Recommendations: limitations as noted below Recommended Home Diet: resume previous diet Allergies: Coded Allergies: Sulfamethoxazole w/Trimethoprim (Verified Allergy, Unknown, RASH, 03/10/17 ) Follow Up Additional Instructions: Follow instructions as outlined in paperwork from Dr. Hdz' office. Up walking today. Follow up Ultrasound as scheduled. ESTEVAN wrap for next 48 hours, then wear compression stockings until ultrasound. Post ultrasound wear compression stockings indefinitely. Any severe pain, present to the emergency room for evaluation for DVT. Follow-up with: As scheduled Gonzales Stewart Recommendations: Call your doctor if: * Temperature above 101 degrees * Pain not relieved by pain medicine ordered * There is increased drainage or redness from any incision * You have any unanswered questions or concerns. Your Doctors Instructions noted above were prepared by provider Bright Hdz. Patient Signature Section: Patient Instructions Signature Page Ciaran Edge Patient (or Guardian) Signature/Date: I have read and understand the instructions given to me by my caregivers. Caregiver/RN/Doctor Signature/Date: The above-named patient and/or guardian has received patient instructions on this date. + Original Patient Signature Page (only) stays with chart. Please make copy for patient.
[2017-03-10 12:01] VITALS: BP 122/65; PULSE 56; O2SAT 95
[2017-03-10 12:37] VITALS: BP 133/64; PULSE 65; TEMP 36.3; O2SAT 96
== END 2017-03-10 12:55 | disposition home or self-care (01) ==
LOC: C.ACU 07:34
PROVIDERS: ATTEND Internal Medicine Interventional Cardiology
DX: I73.9 Peripheral vascular disease, unspecified (principal); I82.811 Embolism and thrombosis of superficial veins of right lower extremity; I48.91 Unspecified atrial fibrillation; Z79.01 Long term (current) use of anticoagulants; Z86.711 Personal history of pulmonary embolism

== ENCOUNTER → 2017-06-20 | Outpatient (CLI) | payer OTHER ==
[~2017-06-20] MED LIST changes: +RANI150T3 PO
--- NOTE | 2017-06-20 11:15 | DIAGNOSTIC IMAGING REPORT ---
(CHEST) THORAX WITHOUT CT DOSE: 761.16 mGy.cm HISTORY: Lung nodule R91.1 Pulmonary nodule, [id number] TECHNIQUE: Multiaxial CT images of the chest were performed without contrast. A dose lowering technique was utilized adhering to the principles of ALARA. COMPARISON: 11/23/2016 FINDINGS: Findings involving the left pulmonary apex are similar. The postoperative linear operative suture line with associated nodularity appears unchanged. The groundglass densities percent of a currently measures 8 x 10 mm. Given differences in scan plane this is most likely unchanged. The small 3 mm nodule appears described is also unchanged. There are no new or interval findings. Lungs otherwise are considered clear. The mediastinal lymph nodes are unchanged. There is no evidence for new interval or progressive adela change. Limited evaluation the upper abdomen again confirms low density nodules within the right as well as left hepatic lobe with central calcification. These are unchanged. The lobulation and scarring as well as calcification of the spleen remains stable as well. Right renal cysts are unchanged. Also an anterior mid pole left renal cyst. This area was not scanned previously. IMPRESSION: 1. Stable postoperative and nodular changes left pulmonary apex. 2. The groundglass nodularity as well as the 3 mm micronodule are essentially unchanged with no evidence for progression or change in configuration. 3. Study is otherwise unremarkable with stable cystic and nodular change of the upper abdomen. 4. Continued surveillance of the left apical findings are recommended. The above report was generated using voice recognition software. It may contain grammatical, syntax or spelling errors. Electronically signed by: Mitchell Gary M.D. 06/20/2017 11:14 AM Dictated Date/Time: 06/20/2017 11:03 AM
== END | disposition home or self-care (01) ==
LOC: C.CTS 10:42
PROVIDERS: ATTEND Surgery
DX: R91.1 Solitary pulmonary nodule (principal); R91.8 Other nonspecific abnormal finding of lung field

== ENCOUNTER 2019-04-18 04:58 | Observation (INO) ==
--- NOTE | 2019-03-20 12:53 | PAT Medication Instructions ---
Medication Instructions Date of Service March 20, 2019 Home Medications omeprazole 20 mg capsule,delayed release 20 mg PO QAM apixaban 5 mg tablet 5 mg PO BID cyanocobalamin (vitamin B-12) 500 mcg tablet 500 mcg PO QAM sildenafil 20 mg tablet 20 mg PO UD PRN acetaminophen [Tylenol Extra Strength] 500 mg PO BID azelastine 2 spray INTRANASAL UD PRN metoprolol tartrate 37.5 mg PO QPM triamcinolone acetonide 1 applic TOPICAL UD PRN ASK your prescriber and surgeon apixaban 5 mg tablet 5 mg PO BID STOP taking 24 hours before surgery triamcinolone acetonide 1 applic TOPICAL UD PRN DO NOT take the morning of surgery cyanocobalamin (vitamin B-12) 500 mcg tablet 500 mcg PO QAM sildenafil 20 mg tablet 20 mg PO UD PRN Take morning of surgery With a small sip of water, OTHERWISE NOTHING TO EAT OR DRINK AFTER MIDNIGHT: omeprazole 20 mg capsule,delayed release 20 mg PO QAM acetaminophen [Tylenol Extra Strength] 500 mg PO BID (if needed, may be taken up to four hours before surgery) azelastine 2 spray INTRANASAL UD PRN (if needed) Take evening before surgery sildenafil (pulm.hypertension) 20 mg tablet 20 mg PO UD PRN (if needed) acetaminophen [Tylenol Extra Strength] 500 mg PO BID azelastine 2 spray INTRANASAL UD PRN (if needed) metoprolol tartrate 37.5 mg PO QPM Other Notes If you have any questions please call us at [phone] or [phone] or [phone] or [phone]
--- NOTE | 2019-03-22 15:13 | PAT Medication Instructions ---
Medication Instructions Date of Service March 22, 2019 Home Medications omeprazole 20 mg capsule,delayed release 20 mg PO QAM apixaban 5 mg tablet 5 mg PO BID cyanocobalamin (vitamin B-12) 500 mcg tablet 500 mcg PO QAM sildenafil 20 mg tablet 20 mg PO UD PRN acetaminophen [Tylenol Extra Strength] 500 mg PO BID azelastine 2 spray INTRANASAL UD PRN metoprolol tartrate 37.5 mg PO QPM triamcinolone acetonide 1 applic TOPICAL UD PRN ASK your prescriber and surgeon apixaban 5 mg tablet 5 mg PO BID (in order for spinal anesthesia, Apixaban/Eliquis needs to be stopped 3 days/72 hours before surgery. Please check if okay with doctor that prescribes this to you) STOP taking 24 hours before surgery triamcinolone acetonide 1 applic TOPICAL UD PRN DO NOT take the morning of surgery cyanocobalamin (vitamin B-12) 500 mcg tablet 500 mcg PO QAM sildenafil 20 mg tablet 20 mg PO UD PRN Take morning of surgery With a small sip of water, OTHERWISE NOTHING TO EAT OR DRINK AFTER MIDNIGHT: omeprazole 20 mg capsule,delayed release 20 mg PO QAM acetaminophen [Tylenol Extra Strength] 500 mg PO BID (okay to take up to 4 hours prior to surgery if needed) azelastine 2 spray INTRANASAL UD PRN (if needed) Take evening before surgery sildenafil 20 mg tablet 20 mg PO UD PRN (if needed) acetaminophen [Tylenol Extra Strength] 500 mg PO BID azelastine 2 spray INTRANASAL UD PRN (if needed) metoprolol tartrate 37.5 mg PO QPM Other Notes If you have any questions please call us at [phone] or [phone] or [phone] or [phone]
--- NOTE | 2019-03-23 09:05 | Anesthesiology Consultation ---
Date of Service March 23, 2019 Assessment & Plan (1) Encounter for pre-operative examination: Chart Review Chart Review: Acceptable Risk for Surgery (PENDING PRE OP TESTING AND SURGEON- ORDERED PCP CLEARANCE) and Patient seen in Pre Admission Testing Teaching & Discussion Instructed NPO after midnight before surgery, except medications with 15 cc of water. Medication instructions provided according to the PAT guidelines. History Surgery Operation Date: 04/18/19 07:00 Proposed Procedures p Left Total Hip Arthroplasty - Connor De Leon MD Height/Weight Height: 5 ft 9 in Weight: 102.4 kg Allergies Allergy/AdvReac Type Severity Reaction Status Date / Time Bactrim Allergy Unknown RASH Verified 03/10/17 08:12 sulfamethoxazole Allergy Unknown RASH Verified 03/16/19 08:03 trimethoprim Allergy Unknown RASH Verified 03/16/19 08:03 Medications Home Medications Medication Instructions Recorded Confirmed Last Taken omeprazole 20 mg capsule,delayed 20 mg PO QAM 01/15/19 03/16/19 03/16/19 release apixaban 5 mg tablet 5 mg PO BID tab 01/16/19 03/16/19 03/16/19 cyanocobalamin (vitamin B-12) 500 500 mcg PO QAM tab 01/16/19 03/16/19 03/16/19 mcg tablet sildenafil (pulm.hypertension) 20 20 mg PO UD PRN 01/16/19 03/16/19 Unknown mg tablet acetaminophen [Tylenol Extra 500 mg PO BID 03/16/19 03/16/19 03/16/19 Strength] azelastine 2 spray INTRANASAL UD PRN 03/16/19 03/16/19 Unknown metoprolol tartrate 37.5 mg PO QPM 03/16/19 03/16/19 Unknown triamcinolone acetonide 1 applic TOPICAL UD PRN 03/16/19 03/16/19 Unknown Past Medical History Medical History Acid reflux Anxiety History of atrial fibrillation SINGLE EPISODE FEW YRS AGO, ON ELIQUIS History of DVT (deep vein thrombosis) RLE 30YRS AGO POST OP History of intestinal obstruction 3-4 TIMES, ONCE REQUIRING SURGICAL INTERVENTION History of kidney stones History of pulmonary embolus (PE) S/P BLADDER STONE SURGERY A FEW YEARS AGO. AFIB DIAGNOSED AT THIS TIME. History of skin cancer & RESECTED HTN (hypertension) Nausea and vomiting after administration of anesthetic agent Exercise / Class Metabolic Activity II 4-5 Yardwork/Stairs/Walk up hill (DENIES CP OR SOB WITH 1 FOS) Past Surgical History Surgical History History of arthroscopy of right knee History of back surgery L4-5 FOR RUPTURED DISC History of bladder stone History of colonoscopy History of endoscopy History of hernia surgery X2 AND 1 REVISION History of lung surgery LEFT WEDGE RESECTION History of surgery on left wrist History of thumb surgery LEFT History of transurethral resection of prostate Past Anesthesia History No Hx of Anesthesia Complications (OTHER THAN PONV) and No Family Hx of Anesthesia Complications History of PONV No Hx of Motion Sickness and History of PONV Social History Smoking Status: Never smoker Do You Dip or Chew Tobacco: No Hx Alcohol Use: Yes Alcohol type: beer alcohol intake frequency: holidays/special occasions only Hx Substance Use: No substance use type: does not use Review of Systems Pt denies any recent chest pain, shortness of breath, palpitations, cough, fever or URI. Physical Exam Vital Signs BP: 128/79 P: 65bpm SPO2: 95% RA T: 97.5 F R: 16 ENMT Mouth: + dentures (partial upper) and + dental restorations (gold caps on few molars); no chipped teeth and no loose teeth Thyromental Distance: < 3.5 Finger Breadths (3) Mallampati Class: I Neck normal visual inspection; neck extension not limited Respiratory normal respiratory effort Auscultation: lungs clear to auscultation bilaterally Cardiovascular Rate/Rhythm: regular rate and regular rhythm Heart Sounds: no murmur Vessels: no carotid bruit
[2019-03-23 10:54] LABS: Appearance Urine Clear (Clear); Bilirubin Urine Negative (Negative); Blood Urine Negative (Negative); Color Urine Dark Yellow; Glucose Urine UA Negative (Negative); Ketones Urine Negative (Negative); Leukocyte Esterase Urine Negative (Negative); Nitrite Urine Negative (Negative); Protein Urine Negative (Negative); Specific Gravity Urine 1.029 (1.000-1.030); Urobilinogen Urine Negative (Negative); pH Urine 5.5 (4.5-7.5)
[2019-03-23 11:01] LABS: BUN Creatinine Ratio 17.4 (10-20); Calcium 8.8 mg/dl (8.5-10.1); Creatinine Clr Calc Pharmacy 69.7 ml/min; Est GFR (African American) 83.5; Potassium 4.1 mmol/L (3.5-5.1)
[2019-03-23 11:03] LABS: INR 1.1 (0.9-1.1); Partial Thromboplastin Ratio 1.1; Prothrombin Time 11.3 Seconds (9.0-12.0)
[2019-03-23 11:12] LABS: Basophils # (auto) 0.02 K/uL (0-0.2); Basophils % (auto) 0.3 %; Eosinophils % (auto) 1.5 %; Hemoglobin 16.2 g/dL (14.0-18.0); Immature Granulocytes # (auto) 0.01 K/uL (0.00-0.02); Immature Granulocytes % (auto) 0.1 %; Lymphocytes # (auto) 2.03 K/uL (1.2-3.4); Lymphocytes % (auto) 29.5 %; Mean Corpuscular Hemoglobin 29.9 pg (25-34); Mean Corpuscular Hgb Conc 33.8 g/dL (32-36); Mean Corpuscular Volume 88.7 fL (80-100); Mean Platelet Volume 10.2 fL (7.4-10.4); Monocytes # (auto) 0.81 K/uL (0.11-0.59); Monocytes % (auto) 11.8 %; Neutrophils % (auto) 56.8 %; Platelet Count 260 K/uL (130-400); RDW Coefficient of Variation 14.1 % (11.5-14.5); RDW Standard Deviation 45.8 fL (36.4-46.3); Red Blood Count 5.41 M/uL (4.7-6.1); White Blood Count 6.87 K/uL (4.8-10.8)
--- NOTE | 2019-03-23 15:27 | History and Physical Report ---
DATE OF ADMISSION: 04/18/2019 CHIEF COMPLAINT: Left hip pain. HISTORY OF PRESENT ILLNESS: This 79-year-old white male presents with complaints of left hip pain that has been longstanding. It has been ongoing for years. He was able to manage it for a number of years with activity modification, oral pain medication and cortisone injections. Over the last 4-5 months, the pain has been increasing. He is now having difficulty with ambulation. Pain is worse with weightbearing and is affecting his ADLs. He notes loss of motion. No numbness or tingling. He elects to proceed with left total hip arthroplasty in hopes of alleviating his discomfort. Preoperative imaging has been obtained. PAST MEDICAL HISTORY: Significant for history of DVT and PE, sleep apnea, anxiety, chronic low back pain, peripheral vascular disease, atrial tachycardia, atrial fibrillation, IT band syndrome, esophageal varices, hiatal hernia, left lung nodule, BPH, lumbar spinal stenosis, chronic rhinitis, history of Lyme disease, acid reflux, history of skin cancer, kidney stones, and history of osteoarthritis. PAST SURGICAL HISTORY: Splenectomy at age 9, back surgery, kidney stone extraction, bladder stone extraction, ureteroscopy and cystoscopy, herniorrhaphy x3, prostate surgery, vein stripping of the lower extremities, shave biopsies, left upper lung wedge resection 03/2016, bronchoscopy, lithotripsy, colonoscopy, and upper endoscopy. ALLERGIES: KNOWN ALLERGY TO BACTRIM. CURRENT MEDICATIONS: Tylenol 500 mg p.o. q. 6 hours p.r.n., vitamin B12 1 tablet p.o. daily, Azelastine nasal spray 2 sprays each nostril b.i.d. p.r.n., metoprolol 25 mg 1-1/2 tablets p.o. daily, omeprazole 20 mg p.o. daily, Eliquis 5 mg p.o. b.i.d., sildenafil 20 mg p.o. daily, triamcinolone 0.1% topical lotion b.i.d. FAMILY HISTORY: Significant for atrial fibrillation, hypertension, lung cancer, Parkinson's disease and rheumatic heart disease. SOCIAL HISTORY: The patient is . Retired. No tobacco use, no ETOH use. REVIEW OF SYSTEMS: A total of 10 systems are reviewed and are significant only for above stated conditions. PHYSICAL EXAMINATION: VITAL SIGNS: Temperature 36.5 oral, BP 130/64, pulse 63, O2 sat 94% on room air, height 171 cm, 103.7 kilograms, BMI 35.5. GENERAL: Well-developed, well-nourished elderly white male in no acute distress. Sitting in a chair. Alert and oriented. SKIN: Warm and dry with good turgor. No rashes or lesions. No ecchymosis or erythema. He does have some peripheral edema. Varicosities are present in his lower extremities. HEENT: Normocephalic, atraumatic. Eyes PERRLA, EOMI. Nares patent bilaterally without turbinate enlargement. Oropharynx without erythema or exudate. No lesions noted. Uvula midline. Oral mucosa moist. Fair dentition. Upper bridge is noted. Lower dental caps are noted. Several missing teeth. HEART: RRR. No MGR. LUNGS: Clear to auscultation bilaterally. No crackles, rhonchi or wheezing. Good air movement. ABDOMEN: Mildly obese. Bowel sounds present x4, soft, nontender. No organomegaly. No masses. MUSCULOSKELETAL: Left hip has no obvious asymmetry or deformity. He does have limited motion. External rotation of only 20 degrees, internal rotation of only 10 degrees, hip flexion to 100 degrees. All of these are limited by pain and have a firm endpoint. He has no discomfort with palpation over his IT band, greater trochanter, or iliac crest. He does have discomfort with palpation over the anterior flexion crease. No current pain over the external rotators posteriorly. He ambulates with an antalgic gait. NEUROLOGIC: Gross sensation is intact across both lower extremities by soft touch. Peripheral pulses are 2+. DATA: Radiographic imaging previously obtained shows end-stage DJD of the left hip. Periarticular osteophytes, subchondral sclerosis, and joint space narrowing are all present. Femoral head appears to be oversized for the cup. IMPRESSION: Left hip end-stage degenerative joint disease. PLAN: Postoperative prescription for Percocet will be provided at discharge from the hospital. He will return to his Eliquis the morning after surgery. He will be off his Eliquis for 3 days prior and will be bridged with Lovenox. This has already been addressed by his PCP. The patient and I had a long discussion regarding his previous bilateral PE with DVT after bladder stone extraction in 11/2015 as well as prior DVT in 2001. He understands that he has potential to perform additional clots. Hopefully, this will be minimized by getting him back on his Eliquis 24 hours after surgery. He has already seen Cardiology as well as his PCP and he is optimized as much as he can be. Prescription was provided for a rolling walker. Anticipate one night in the hospital with discharge to home with home health services. The patient will be bridged appropriately with Lovenox. Preoperative lab work, EKG, and chest x-ray have been ordered.
[2019-04-18] MEDS ORDERED: LR 60ML/HR IV SCH (06:00)
[2019-04-18] MEDS ORDERED: LR 500ML BOLUS, THEN 15ML/HR IV SCH (06:00)
[2019-04-18] MEDS ORDERED: CEFAZOLIN 2000MG 2,000 MG/15 ML SYR IV SCH (06:00)
[2019-04-18] MEDS ORDERED: TRANEXAMIC ACID 1,000 MG x 1 **For Topical Use TOP SCH (06:00)
[2019-04-18] MEDS ORDERED: ROPIVACAINE 0.5% HCL/PF 150 MG, BUPIVACAINE 0.5% MPF 30 ML, EPINEPHrine 0.15 MG, Ketoro... INFIL SCH (06:00)
--- NOTE | 2019-04-18 06:23 | History & Physical Bridge Note ---
Date of Service April 18, 2019 History & Physical Bridge Note I have examined the patient, reviewed the History & Physical and in the interval since the performance of the History & Physical I have noted the following changes of clinical significance: consent obtained,site marked.no changes noted
[2019-04-18] MEDS ORDERED: BUPIVACAINE 0.5 % 5 MG/1 ML PF 10ML VIAL ONE (06:31)
[2019-04-18] MEDS ORDERED: ORTHO JOINT ANESTHETIC ONE (06:34)
[2019-04-18] MEDS ORDERED: fentaNYL citrate 100 MCG/2 ML VIAL ONE (06:40)
[2019-04-18] MEDS ORDERED: MIDAZOLAM HCL 1 MG/ML 2ML VIAL ONE (06:40)
[2019-04-18] MEDS ORDERED: ATROPINE SULFATE 0.1 MG/ML 10ML SYR IV PRN ×2 (06:41→09:55)
[2019-04-18] MEDS ORDERED: ePHEDrine sulfate 50 MG/ML AMP IV PRN ×2 (06:41→09:55)
[2019-04-18] MEDS ORDERED: fentaNYL citrate 100 MCG/2 ML VIAL IV PRN ×2 (06:41→09:55)
[2019-04-18] MEDS ORDERED: HYDROmorphone INJ 2 MG/ML SYR/VIAL IV PRN ×2 (06:41→09:55)
[2019-04-18] MEDS ORDERED: ONDANSETRON INJ 2 MG/ML 2 ML VIAL IV PRN ×3 (06:41→10:21)
[2019-04-18] MEDS ORDERED: PROPOFOL IV EMULSION 10 MG/ML 20 ML VIAL IV ONE (07:54)
[2019-04-18] MEDS ORDERED: LIDOCAINE HCL 2% 2 ML VIAL/AMP(20MG/ML) INFIL ONE (07:54)
[2019-04-18] MEDS ORDERED: PHENYLEPHRINE 100MCG/ML 5ML SYR ONE (08:25)
[2019-04-18] MEDS ORDERED: PHENYLEPHRINE HCL 10 MG/ML VIAL ONE (08:25)
--- NOTE | 2019-04-18 08:26 | Post Operative Brief Note ---
Immediate Post Op Note v1 Date of Surgery April 18, 2019 Pre & Post Diagnosis Operation Date: 04/18/19 07:00 Pre-Op Diagnosis: Let Hip Degenerative Joint Disease Post-Op Diagnosis: Let Hip Degenerative Joint Disease I identified the patient and participated in the time-out.: Yes Procedure Operation Date: 04/18/19 07:00 Actual Procedures p Left Total Hip Arthroplasty--Uncemented(Left) - Connor De Leon MD Surgeon Connor De Leon MD Animal Nurse divya/derrick Estimated Blood Loss 75 Findings Consistent with Post-Op Diagnosis
--- NOTE | 2019-04-18 08:33 | Operative Report ---
Post Operative Report Pre & Post Diagnosis Operation Date: 04/18/19 07:00 Pre-Op Diagnosis: Let Hip Degenerative Joint Disease Post-Op Diagnosis: Let Hip Degenerative Joint Disease I identified the patient and participated in the time-out.: Yes Procedure Operation Date: 04/18/19 07:00 Actual Procedures p Left Total Hip Arthroplasty--Uncemented(Left) - Connor De Leon MD Surgeon CANDE De Leon MD Hide Salter divya/derrick Estimated Blood Loss 75 Findings Consistent with Post-Op Diagnosis Specimens see operative report Drains none Complications none Disposition Accompanied Patient To Recovery: Yes Disposition: Recovery Room Indications This 79-year-old white male presented to the office with complaints of intractable left hip pain. He had tried conservative care measures without improvement. He elected to proceed with surgical intervention after being educated about potential risks and outcomes. Preoperative imaging was obtained. Description of Procedure Patient was administered a spinal anesthetic and then taken to the operating room where he was given sedation. He was prepped and draped in the usual s terile fashion. Please see Dr. De Leon's operative report for specifics of the procedure. I was present for the entire case from initial patient positioning through final wound closure. Assistance was provided with tissue retraction, hemostasis, trial implant placement, final implant placement, and final wound closure. Patient was taken to the recovery room in satisfactory condition. I attest to the content of the Intraoperative Record and any orders documented therein. Any exceptions are noted below.
--- NOTE | 2019-04-18 08:37 | Operative Report ---
Post Operative Report Pre & Post Diagnosis Operation Date: 04/18/19 07:00 Pre-Op Diagnosis: Let Hip Degenerative Joint Disease Post-Op Diagnosis: Let Hip Degenerative Joint Disease I identified the patient and participated in the time-out.: Yes Procedure Operation Date: 04/18/19 07:00 Actual Procedures p Left Total Hip Arthroplasty--Uncemented(Left) - Connor De Leon MD Surgeon Connor De Leon MD Track Mechanic divya/derrick Estimated Blood Loss 75 Findings Consistent with Post-Op Diagnosis Specimens Bone-left femoral head Complications none Disposition Accompanied Patient To Recovery: Yes Disposition: Recovery Room Description of Procedure Lateral decubitus position, standard prep and drape, time out Left Total Hip Arthroplasty--Uncemented Please see Dr Suarez's procedure notes for specific details I was present throughout the case, assisted for wound closure and transferred the patient to PACU in stable condition I attest to the content of the Intraoperative Record and any orders documented therein. Any exceptions are noted below.
--- NOTE | 2019-04-18 08:51 | Operative Report (OR) ---
DATE OF OPERATION: 04/18/2019 SURGEON: Connor De Leon MD REINSURANCE ANALYST: Luis. SECOND BEHAVIORAL INTERVENTIONIST: Keith Wang PA-C. PREOPERATIVE DIAGNOSIS: Severe osteoarthritis, left hip. POSTOPERATIVE DIAGNOSIS: Severe osteoarthritis, left hip. OPERATION PERFORMED: Left total hip replacement. Noncemented. SUMMARY OF IMPLANTS: Size 56 acetabular shell sector cup hole eliminator, cancellous screw 6.5 x 30, acetabular liner 36 x 56 neutral liner, femoral stem 5 high offset Tri-Lock, femoral head is a 36+8.5 ceramic. ESTIMATED BLOOD LOSS: 75 mL. CRYSTALLOID: Per anesthesia. DVT PROPHYLAXIS: Per protocol. PERIOPERATIVE SITUATION: Medically cleared male with intractable hip pain. Physical exam and x-ray consistent with severe disease, wants to proceed with surgical treatment. DESCRIPTION OF PROCEDURE: The patient was appropriately identified, site verified, consent verified. Antibiotics confirmed as being given. The patient was placed in the right lateral decubitus position. The left lower extremity prepped and draped in usual routine fashion. Posterior approach to the left hip was then made. Sharp dissection carried through skin and blunt dissection down to the fascia. IT band was then identified and incised and split proximally into the gluteus machelle fascia. The Charnley retractor was placed with care taken to protect the sciatic nerve, which was visualized and palpated. The short external rotators vessels were then all identified and coagulated. There was minimal blood loss. The short external rotators were then released. The capsule was then split, T'd and then the hip dislocated. The femoral neck resected. There was severe deformity of the femoral head. The remaining labrum was then excised. Excellent acetabular exposure was obtained. Serial reaming carried up to a size 56 and a 56 cup impacted into appropriate anteversion and inclination, 6.5 x 30 screw was then placed with excellent purchase. The liner was then seated and some minor osteophytes removed anteriorly. The wound was irrigated multiple times prior to this. The femoral neck was then delivered in the wound with flexion, internal rotation and an antler retractor. The proximal femur prepared with a box finisher, canal finder, lateralizing rasp, and serial broaching up to a size 5. Trial reduction with a +5 head was stable with slightly short, so ultimately went to the 8.5. The hip was then dislocated. The wound was then irrigated with Betadine Pulsavac, then TXA for 2 minutes and then reirrigated and then the trial liner removed, the hole eliminator placed with permanent liner seated, permanent stem and head seated. The hip reduced. It was stable in all planes. Leg lengths were excellent. The wound was irrigated one final time and closed with #2 Vicryl for the capsule and the short external rotators, #2 Vicryl for the IT band and the gluteus machelle fascia, #2 Vicryl for the deep fat, 2-0 Vicryl for the subcutaneous tissue and stainless steel clips for skin. Appropriate dressing applied. The patient transferred to recovery room in satisfactory condition having tolerated the procedure well. Pathology pending on bone. I attest to the content of the Intraoperative Record and any orders documented therein. Any exception s are noted below.
--- NOTE | 2019-04-18 08:58 | XRay Report ---
XR pelvis 1-2V routine CLINICAL HISTORY: post op in pacu DEGENERATIVE ARTHRITIS COMPARISON: 11/20/2018 DISCUSSION: There are postsurgical changes of a total left hip arthroplasty. The acetabular and femor al components appear well seated. There are no acute fractures or dislocations. There are overlying s kin jenny. IMPRESSION: Postsurgical changes of a total left hip arthroplasty. ACT 112: Negative or not required by law. Electronically signed by: Zan Moran M.D. 04/18/2019 8:57 AM
--- NOTE | 2019-04-18 09:55 | Anesthesiology Progress Note ---
Date of Service April 18, 2019 Anesthesia Post Procedure Vital Signs Vital Signs: Temp Pulse Pulse Resp BP BP Pulse Ox 04/18/19 09:43 36.3 C L 64 15 102/66 93 04/18/19 09:35 55 L 13 99/58 L 97 04/18/19 09:25 55 L 15 96/65 L 94 04/18/19 09:15 50 L 13 87/49 L 92 04/18/19 09:05 56 L 18 103/61 96 04/18/19 08:55 56 L 12 102/58 L 94 04/18/19 08:45 61 19 93/56 L 95 04/18/19 08:35 36.9 C 58 L 15 87/56 L 95 04/18/19 05:51 36.7 C 73 18 159/91 H 93 Transfer of Care Handoff Completed per policy Notes Mental Status: alert / awake / arousable and participated in evaluation Patient Amnestic to Procedure: Yes Nausea / Vomiting: adequately controlled Pain: adequately controlled Airway Patency, RR, SpO2: stable & adequate BP & HR: stable & adequate Hydration State: stable & adequate Anesthetic Complications: no major complications apparent and Pt Satisfied with anesthetic care
[2019-04-18] MEDS ORDERED: bisacodyL 10 MG SUPP PR PRN (10:21)
[2019-04-18] MEDS ORDERED: METOCLOPRAMIDE HCL INJ 5 MG/ML 2 ML VIAL IV PRN (10:21)
[2019-04-18] MEDS ORDERED: NALOXONE HCL 0.4 MG/1 ML VIAL/CARP IV PRN (10:21)
[2019-04-18] MEDS ORDERED: DiphenhydrAMINE HCL 50 MG/ML VIAL IV PRN (10:21)
[2019-04-18] MEDS ORDERED: MAGNESIUM HYDROXIDE SUSP 30 ML UDC PO PRN (10:21)
[2019-04-18] MEDS ORDERED: HYDROmorphone INJ 0.5 MG/0.5 ML SYR IV PRN (10:21)
[2019-04-18] MEDS ORDERED: ALUMINUM/MAGNESIUM SUSP 30 ML UDC PO PRN (10:21)
[2019-04-18] MEDS ORDERED: SODIUM CHLORIDE 0.9% 1000ML 1,000 ML IV SCH (10:21)
[2019-04-18] MEDS ORDERED: TAMSULOSIN HCL 0.4 MG CAP PO PRN (10:21)
[2019-04-18] MEDS: DOCUSATE SODIUM 100 MG CAP PO SCH ×2 (11:24→21:07)
[2019-04-18] MEDS: KETOROLAC TROMETHAMINE 15 MG/ML VIAL IV SCH ×3 (11:25→22:59)
[2019-04-18] MEDS: PANTOprazole 40 MG TAB PO SCH (11:25)
[2019-04-18] MEDS: MULTIVITAMIN TAB PO SCH (11:25)
--- NOTE | 2019-04-18 11:35 | Progress Notes ---
DATE: 04/18/2019 SUBJECTIVE: Postop day #1 status post left total hip replacement. The patient is doing well, has no major issues. He denies any chest pain, shortness of breath, fever, chills, nausea, vomiting or headache. He is eating well. He is sitting up. He notes he has full feeling in his feet. OBJECTIVE: Vital signs are stable. He is afebrile. Hip range of motion is supple and pain free. Neurovascular check of femoral sciatic nerve is normal. Postop x-rays look excellent. ASSESSMENT: Doing well. Hep-Lock his IV. Get him go on. He has a history of DVT, PE. Will resume his Eliquis tomorrow 24 hours postop. Will need a Prevena dressing for that. Follow up in a week after that to get the dressing changed and then a bulky dressing.
--- NOTE | 2019-04-18 11:41 | Discharge Summary (DS) ---
REVISED REPORT CHIEF COMPLAINT: Left hip pain. HISTORY OF PRESENT ILLNESS: The patient is admitted for overnight stay for left total hip replacement. His hospital course has been uneventful to date. His postop x-rays look excellent. His neurovascular exam is normal. He denies any chest pain, shortness of breath, fever, chills, nausea, vomiting or headache. He is eating, drinking and voiding. PAST MEDICAL HISTORY: Remarkable for DVT, PE, sleep apnea, anxiety, chronic low back pain, peripheral vascular disease, atrial tachycardia, atrial fibrillation, IT band syndrome, esophageal varices, hiatal hernia, left lung nodule, BPH, lumbar spinal stenosis, chronic rhinitis, history of Lyme disease, acid reflux, history of skin cancer, kidney stones and osteoarthritis. PAST SURGICAL HISTORY: Remarkable for splenectomy, back surgery, kidney stone extraction, ureteroscopy, cystoscopy, herniorrhaphy, prostate surgery, vein stripping, wedge resection of his lung, bronchoscopy, lithotripsy, colonoscopy, upper endoscopy. ALLERGIES: BACTRIM. PREADMISSION MEDICATIONS: Include Tylenol, vitamins, azelastine sprays to his nose, metoprolol, omeprazole, Eliquis, sildenafil, triamcinolone. He will be discharged on the same medications with addition of some pain medication. Please see prescription. FAMILY HISTORY: Remarkable for atrial fibrillation, hypertension, lung disease, cancer, Parkinson's disease, rheumatic heart disease. SOCIAL HISTORY: Reveals he is , retired. No tobacco or alcohol use. REVIEW OF SYSTEMS: Noncontributory. Postop x-rays look excellent. ASSESSMENT: Doing well status post left total hip replacement. We will discharge tomorrow if things go well today overnight. Start his Eliquis 24 hours postop. Prevena dressing will be applied tomorrow to keep pressure on the wound based on the Eliquis dose. Follow up in 1 week for change on that. ADDENDUM The patient had an episode of vasovagal activity yesterday, required a code purple, did not have any issues with any type of chest pain, etc. His workup was negative including EKG and laboratory work. At this point in time, the patient is mobile, is doing well, has no issues. His troponin was less than 0.15. This morning, he was able to get up and go to bathroom, etc. Plan is to discharge today if he does well and appropriate mood and patterns with PT, OT. Resume his Eliquis today 5 mg p.o. b.i.d., Prevena to be placed today. MTDD
[2019-04-18] MEDS: ACETAMINOPHEN 500 MG TAB PO SCH ×2 (13:46→21:09)
--- NOTE | 2019-04-18 15:17 | Hospitalist Consultation ---
Date of Consultation April 18, 2019 Assessment & Plan (1) Syncope: occurred while sitting in chair associated with diaphoresis, nausea, never had chest pain or pressure he was completely oriented and alert after the event, able to answer questions EKG with sinus rhythm, no ischemic changes HR in the 70's, blood pressure stable on two separate checks will give bolus of approximately 700cc left in bag Zofran PRN for nausea, gave him relief blood sugar normal at 125 Hb down a little at 13.9 from 16 prior to surgery but would not cause syncope Cr stable, troponin negative, lactic acid 2 keep in bed for the time being, allow him to rest, stay well hydrated reassess tomorrow morning (2) Pulmonary emboli: h/o PE after surgery for kidney stones typically on Eliquis, plan to resume tomorrow, agree with plan Eliquis was stopped 3 days prior to surgery, bridged with Lovenox (3) Hypertension: BP is stable can continue metoprolol (4) History of atrial fibrillation: in NSR on 12 lead EKG, rates in 70 takes Eliquis, resume tomorrow History of Present Illness Reason for Consultation: mina esqueda Requesting Physician: Dr. De Leon Attending Physician: Connor De Leon MD History of Present Illness 79 yo male who is post op day 1 from left RACHANA with Dr. De Leon. Responded to a mina esqueda today around 1500. Patient was sitting in a chair at the time, it was the first time he had been up out of bed since the OR. He had been up for about 30 minutes. He started to feel weak and light headed and he passed out briefly. His was at the bedside at the time. She alerted the nursing staff who quickly responded. The patient was minimally responsive sitting in the chair. A full team of nurses and aides had to lift the patient and get him to bed. His HR was in the 70's, blood pressure was 110/60. Blood sugar was 125. EKG showed normal sinus rhythm, no ischemic changes. The patient was coherent by the time I arrived, speaking in full sentences. Says he remembers sitting in the chair but then he started to feel weak and light headed. He c/o nausea, diaphoresis. He said that earlier today he felt great, he was eating well, no chest pain, no dyspnea, no fever or chills. The left hip pain was controlled well. Reviewed the operative report, no complications, there was 75cc of EBL. Vitals were stable this morning. Reviewed history, had an episode of atrial fibrillation in the past but not permanent. He has a history of DVT, takes Eliquis. The Eliquis was held three days prior to surgery and he was bridged with Lovenox. Plan is to resume Eliquis tomorrow. He has no personal history of OK or stroke. Allergies Allergy/AdvReac Type Severity Reaction Status Date / Time Bactrim Allergy Unknown RASH Verified 03/10/17 08:12 sulfamethoxazole Allergy Unknown RASH Verified 04/18/19 05:44 trimethoprim Allergy Unknown RASH Verified 04/18/19 05:44 Home Medications Home Medications Medication Instructions Recorded Confirmed Type omeprazole 20 mg capsule,delayed 20 mg PO QAM 01/15/19 04/18/19 History release apixaban 5 mg tablet 5 mg PO BID tab 01/16/19 04/18/19 History cyanocobalamin (vitamin B-12) 500 500 mcg PO QAM tab 01/16/19 04/18/19 History mcg tablet sildenafil (pulm.hypertension) 20 20 mg PO UD PRN 01/16/19 04/18/19 History mg tablet acetaminophen [Tylenol Extra 500 mg PO BID 03/16/19 04/18/19 History Strength] azelastine 2 spray INTRANASAL UD PRN 03/16/19 04/18/19 History triamcinolone acetonide 1 applic TOPICAL UD PRN 03/16/19 04/18/19 History metoprolol succinate 37.5 mg PO HS 04/18/19 04/18/19 History Patient History Medical History (Updated 04/18/19 @ 15:21 by Wilber Bland DO) Acid reflux Anxiety History of atrial fibrillation SINGLE EPISODE FEW YRS AGO, ON ELIQUIS History of DVT (deep vein thrombosis) RLE 30YRS AGO POST OP History of intestinal obstruction 3-4 TIMES, ONCE REQUIRING SURGICAL INTERVENTION History of kidney stones History of pulmonary embolus (PE) S/P BLADDER STONE SURGERY A FEW YEARS AGO. AFIB DIAGNOSED AT THIS TIME. History of skin cancer & RESECTED HTN (hypertension) Varicose vein of leg (Acute) left leg and repair of Surgical History (Updated 04/18/19 @ 05:51 by Susana Piña RN) History of arthroscopy of right knee History of back surgery L4-5 FOR RUPTURED DISC History of bladder stone History of cardiac radiofrequency ablation (Acute) right leg History of colonoscopy History of endoscopy History of hernia surgery X2 AND 1 REVISION History of lung surgery LEFT WEDGE RESECTION History of surgery on left wrist History of thumb surgery LEFT History of transurethral resection of prostate Nausea and vomiting after administration of anesthetic agent Family History (Updated 04/18/19 @ 15:19 by Wilber Bland DO) Other Hypertension Social History Preferred Language: Georgian Communication Ability: Effective Communication Ability Comment: HARD OF HEARING BILAT AIDES Level Vial Inspector Required: No Beliefs That Will Affect Care: None marital status: Current Living Situation: Spouse Other Information That Helps Us Care for You: Yes (TROUBLE WALKING ON UNEVEN SURFACES WITH HIP ISSUE) Feels Safe at Home: Yes Smoking Status: Never smoker Do You Dip or Chew Tobacco: No ; Hx Alcohol Use: Yes Alcohol type: beer Hx Substance Use: No Review of Systems Review of Systems: All systems reviewed & are unremarkable except as noted in HPI & below Constitutional: + sweats, + fatigue and + weakness; no fever Respiratory: no cough and no dyspnea Cardiovascular: + syncope; no chest pain, no palpitations and no edema Gastrointestinal: + nausea; no abdominal pain, no vomiting, no constipation and no diarrhea/loose stools Musculoskeletal: + joint pain (left hip) Physical Exam Constitutional: well developed, well nourished and + diaphoretic; no acute d istress Eyes: PERRL, conjunctivae normal, anicteric sclerae ENMT: external ear and nose normal, oropharynx normal Neck: trachea midline, no thyromegaly Respiratory: normal respiratory effort, lungs clear to auscultation Cardiovascular: RRR, no murmur, no edema Gastrointestinal (Abdomen): normal bowel sounds, soft, nontender, no hepatosplenomegaly Musculoskeletal: no cyanosis or clubbing, extremities motor strength 5/5 (left hip with dressing, tender) Skin: no rashes, warm and dry Neurologic: patellar DTR's 2+ bilat, sensation intact and PERRL, EOMI, accommodation nl, no face palsy, no dysarthria Psychiatric: A+Ox3, euthymic affect Lymphatic: no cervical or axillary lymphadenopathy Results & Data Vital Signs (Past 12 Hours) Vital Signs Temp Pulse Pulse Pulse Resp BP BP 04/18/19 13:00 36.6 C 72 20 128/75 04/18/19 12:00 36.8 C 68 20 109/70 04/18/19 11:02 36.7 C 63 20 115/72 04/18/19 10:30 36.4 C L 57 L 22 121/69 04/18/19 10:00 36.4 C L 55 L 16 124/69 04/18/19 09:43 36.3 C L 64 15 102/66 04/18/19 09:35 55 L 13 99/58 L 04/18/19 09:25 55 L 15 96/65 L 04/18/19 09:15 50 L 13 87/49 L 04/18/19 09:05 56 L 18 103/61 04/18/19 08:55 56 L 12 102/58 L 04/18/19 08:45 61 19 93/56 L 04/18/19 08:35 36.9 C 58 L 15 87/56 L 04/18/19 05:51 36.7 C 73 18 159/91 H Pulse Ox 04/18/19 13:00 96 04/18/19 12:00 94 04/18/19 11:02 95 04/18/19 10:30 94 04/18/19 10:00 93 04/18/19 09:43 93 04/18/19 09:35 97 04/18/19 09:25 94 04/18/19 09:15 92 04/18/19 09:05 96 04/18/19 08:55 94 04/18/19 08:45 95 04/18/19 08:35 95 04/18/19 05:51 93 Laboratory Results Laboratory Results - last 24 hr 04/18/19 04/18/19 04/18/19 14:56 15:08 15:08 WBC 14.26 H RBC 4.63 L Hgb 13.9 L Hct 40.2 L MCV 86.8 MCH 30.0 MCHC 34.6 RDW Std Deviation 44.8 RDW Coeff of Abdi 14.2 Plt Count 187 MPV 9.7 Sodium Cancelled Potassium Cancelled Chloride Cancelled Carbon Dioxide Cancelled Anion Gap Cancelled BUN Cancelled Creatinine Cancelled Est Cr Clr Drug Dosing Cancelled Est GFR ( Amer) Cancelled Est GFR (Non-Af Amer) Cancelled BUN/Creatinine Ratio Cancelled Glucose Cancelled POC Glucose 125 H Lactate Calcium Cancelled Total Bilirubin Cancelled AST Cancelled ALT Cancelled Alkaline Phosphatase Cancelled Troponin I Total Protein Cancelled Albumin Cancelled Globulin Cancelled Albumin/Globulin Ratio Cancelled 04/18/19 04/18/19 15:08 15:08 WBC RBC Hgb Hct MCV MCH MCHC RDW Std Deviation RDW Coeff of Abdi Plt Count MPV Sodium 139 Potassium 3.8 Chloride 109 H Carbon Dioxide 26 Anion Gap 4.0 BUN 18 Creatinine 1.04 Est Cr Clr Drug Dosing 66.0 Est GFR ( Amer) 77.7 Est GFR (Non-Af Amer) 67.0 BUN/Creatinine Ratio 17.4 Glucose 114 H POC Glucose Lactate 2.3 H* Calcium 8.5 Total Bilirubin 0.8 AST 25 ALT 23 Alkaline Phosphatase 51 Troponin I < 0.015 Total Protein 5.8 L Albumin 2.6 L Globulin 3.2 Albumin/Globulin Ratio 0.8 L Medications Administered Current Inpatient Medications Acetaminophen (Tylenol) 1,000 mg PO Q8 [facility] Stop: 05/18/19 13:59 Last Admin: 04/18/19 13:46 Dose: 1,000 mg Documented by: Al Hydrox/Mg Hydrox/Simethicone (Maalox) 15 ml PO Q4H PRN PRN Reason: Heartburn Stop: 05/18/19 10:20 Apixaban (Eliquis) 5 mg PO BID [facility] Stop: 05/19/19 08:59 Ascorbic Acid (Vitamin C) 500 mg PO BIDM [facility] Stop: 05/18/19 16:59 Last Admin: 04/18/19 16:22 Dose: 500 mg Documented by: Bisacodyl (Dulcolax) 10 mg HI DAILY PRN PRN Reason: Constipation Stop: 05/18/19 10:20 Diphenhydramine HCl (Benadryl) 25 mg IV Q8H PRN PRN Reason: Itching Stop: 05/18/19 10:20 Docusate Sodium (Colace) 100 mg PO BID [facility] Stop: 05/18/19 10:44 Last Admin: 04/18/19 11:24 Dose: 100 mg Documented by: Ferrous Gluconate (Ferrous Gluconate) 324 mg PO BIDM [facility] Stop: 05/18/19 16:59 Last Admin: 04/18/19 16:22 Dose: 324 mg Documented by: Hydromorphone HCl (Dilaudid) 0.5 mg IV Q2H PRN PRN Reason: Pain Stop: 05/02/19 10:20 Dexamethasone 10 mg/ Syringe 2.5 mls @ 1 mls/min IV TODAY@08 [facility] Stop: 04/19/19 08:03 Cefazolin Sodium (Ancef 2000mg) 2,000 mg in 15 mls @ 3.75 mls/min IV Q8H [facility]; Protocol Stop: 04/18/19 23:03 Last Admin: 04/18/19 16:20 Dose: 3.75 mls/min Documented by: Ketorolac Tromethamine (Toradol) 15 mg IV Q6H [facility] Stop: 04/19/19 05:01 Last Admin: 04/18/19 16:22 Dose: 15 mg Documented by: Magnesium Hydroxide (Milk Of Magnesia) 30 ml PO Q6H PRN PRN Reason: Constipation Stop: 05/18/19 10:20 Metoclopramide HCl (Reglan) 10 mg IV Q6H PRN PRN Reason: Nausea And Vomiting Stop: 05/18/19 10:20 Metoprolol Succinate (Toprol Xl) 37.5 mg PO QPM [facility] Stop: 05/18/19 20:59 Miscellaneous (Order Awaiting Action) 1 ea N/A QS [facility] Stop: 05/18/19 15:59 Last Admin: 04/18/19 16:22 Dose: Not Given Documented by: Multivitamins (Multivitamin Tab) 1 tab PO [facility] Stop: 05/18/19 10:44 Last Admin: 04/18/19 11:25 Dose: 1 tab Documented by: Naloxone HCl (Narcan) 0.1 mg IV Q5M PRN PRN Reason: Oversedation/Resp Depression Stop: 05/18/19 10:20 Ondansetron HCl (Zofran) 4 mg IV Q6H PRN PRN Reason: Nausea And Vomiting Stop: 05/18/19 10:20 Last Admin: 04/18/19 15:01 Dose: 4 mg Documented by: Oxycodone HCl (Roxicodone Immediate Rel) 5 - 10 mg PO Q4H PRN PRN Reason: Pain Stop: 05/02/19 10:20 [facility]opraz[facility]ix) [facility] Protocol Stop: 05/18/19 10:44 Last Admin: 04/18/19 11:25 Dose: 40 mg Documented by: Sennosides (Senokot) 17.2 mg PO HS [facility] Stop: 05/18/19 20:59 Tamsulosin HCl (Flomax) 0.4 mg PO QAM PRN PRN Reason: unable to void Stop: 05/18/19 10:20 PG Care Time/CCT Total # of Minutes Spent Total Time Spent: 45 Total Time Spent with Patient: Total time spent is greater than 50% in coordination of care (as documented) at patient's floor/unit and/or counseling patient:
[2019-04-18 15:18] LABS: Hematocrit (blood only) 40.2 % (42-52); Hemoglobin 13.9 g/dL (14.0-18.0); Mean Corpuscular Volume 86.8 fL (80-100); Mean Platelet Volume 9.7 fL (7.4-10.4); Platelet Count 187 K/uL (130-400); RDW Coefficient of Variation 14.2 % (11.5-14.5); RDW Standard Deviation 44.8 fL (36.4-46.3); Red Blood Count 4.63 M/uL (4.7-6.1); White Blood Count 14.26 K/uL (4.8-10.8)
[2019-04-18 15:24] LABS: Mean Corpuscular Hgb Conc 34.6 g/dL (32-36)
[2019-04-18 15:36] LABS: Calcium 8.5 mg/dl (8.5-10.1); Chloride 109 mmol/L (98-107); Potassium 3.8 mmol/L (3.5-5.1); Sodium 139 mmol/L (136-145)
[2019-04-18 15:38] LABS: Alanine Aminotransferase 23 U/L (12-78); Albumin Level 2.6 gm/dl (3.4-5.0); BUN Creatinine Ratio 17.4 (10-20); Blood Urea Nitrogen 18 mg/dl (7-18); Carbon Dioxide 26 mmol/L (21-32); Est GFR (African American) 77.7; Glucose 114 mg/dl (70-99)
[2019-04-18 15:41] LABS: Albumin Globulin Ratio 0.8 (0.9-2); Alkaline Phosphatase 51 U/L (45-117); Aspartate Aminotransferase 25 U/L (15-37); Bilirubin,Total 0.8 mg/dl (0.2-1); Globulin 3.2 gm/dl (2.5-4.0); Total Protein 5.8 gm/dl (6.4-8.2); Troponin I < 0.015 ng/ml (0-0.045)
--- NOTE | 2019-04-18 16:12 | Progress Notes ---
DATE: 04/18/2019 SUBJECTIVE: The patient had a vasovagal episode with code purple was initiated. He is now lying in bed. Denies any chest pain, shortness of breath, fever, chills, nausea, vomiting or headache. Denies any hip pain. OBJECTIVE: Examination reveals intact dressing. Neurovascular check of femoral sciatic nerve is normal. Supple range of motion of the hip is pain free. The leg lengths were good. There is no sign of any dislocation or fracture. ASSESSMENT AND PLAN: Vasovagal reaction appropriately worked up by Dr. Bland. I asked him to be officially consulted. Continue p.o. intake. He is eating and drinking well. Do not flood with IV fluids. Presently he is hep locked after 1 liter.
[2019-04-18] MEDS: CEFAZOLIN 2000MG 2,000 MG/15 ML SYR IV SCH ×2 (16:20→22:59)
[2019-04-18] MEDS: ASCORBIC ACID 500 MG TAB PO SCH (16:22)
[2019-04-18] MEDS: FERROUS GLUCONATE 324 MG TAB PO SCH (16:22)
[2019-04-18] MEDS: OXYCODONE HCL IR 5 MG TAB (IMMEDIATE RELEASE) PO PRN (18:10)
[2019-04-18] MEDS ORDERED: METOPROLOL SUCC 25MG EXT REL TAB PO SCH (21:00)
[2019-04-18] MEDS ORDERED: SENNA 8.6 MG TAB PO SCH (21:00)
--- NOTE | 2019-04-18 23:29 | Electrocardiogram Report ---
Test Reason : Blood Pressure : / mmHG Vent. Rate : 072 BPM Atrial Rate : 072 BPM P-R Int : 162 ms QRS Dur : 086 ms QT Int : 378 ms P-R-T Axes : 061 -09 026 degrees QTc Int : 413 ms Poor data quality, interpretation may be adversely affected Normal sinus rhythm Possible Inferior infarct (cited on or before 03-DEC-2015) Abnormal ECG When compared with ECG of 23-MAR-2019 09:11, No significant change was found Confirmed by Luis Thao ([id number]) on 04/18/2019 11:28:53 PM Referred By: Connor De Leon Confirmed By:Luis Thao
[2019-04-19] MEDS: ACETAMINOPHEN 500 MG TAB PO SCH (05:13)
[2019-04-19] MEDS: KETOROLAC TROMETHAMINE 15 MG/ML VIAL IV SCH (05:15)
[2019-04-19 06:02] LABS: Basophils # (auto) 0.02 K/uL (0-0.2); Basophils % (auto) 0.2 %; Eosinophils # (auto) 0.12 K/uL (0-0.5); Hematocrit (blood only) 37.8 % (42-52); Hemoglobin 12.8 g/dL (14.0-18.0); Immature Granulocytes # (auto) 0.02 K/uL (0.00-0.02); Immature Granulocytes % (auto) 0.2 %; Lymphocytes # (auto) 1.66 K/uL (1.2-3.4); Lymphocytes % (auto) 14.3 %; Mean Corpuscular Hemoglobin 29.7 pg (25-34); Mean Corpuscular Hgb Conc 33.9 g/dL (32-36); Mean Corpuscular Volume 87.7 fL (80-100); Monocytes # (auto) 1.19 K/uL (0.11-0.59); Monocytes % (auto) 10.3 %; Neutrophils # (auto) 8.57 K/uL (1.4-6.5); Platelet Count 189 K/uL (130-400); RDW Coefficient of Variation 14.2 % (11.5-14.5); RDW Standard Deviation 45.9 fL (36.4-46.3); Red Blood Count 4.31 M/uL (4.7-6.1); White Blood Count 11.58 K/uL (4.8-10.8)
[2019-04-19 06:36] LABS: BUN Creatinine Ratio 18.7 (10-20); Calcium 8.6 mg/dl (8.5-10.1); Creatinine Clr Calc Pharmacy 67.2 ml/min; Est GFR (African American) 79.5; Est GFR (Non-African American) 68.6; Potassium 4.3 mmol/L (3.5-5.1)
--- NOTE | 2019-04-19 06:50 | Progress Notes ---
DATE: 04/18/2019 SUBJECTIVE: Status post left total hip replacement postop day #1. The patient had no further issues since he had his vasovagal episode. He denies any chest pain, shortness of breath, fever, chills, nausea, vomiting or headache. He got up and ambulated to the bathroom this morning and voided with no issues. OBJECTIVE: Vital signs are stable. He is afebrile. Neurovascular check femoral sciatic nerve is normal. Hip is located. Leg lengths are good. ASSESSMENT: Overall, doing well. Plan is to discharge to home today if he passes physical therapy and occupational therapy. Start his Eliquis dose this morning 24 hours post-surgery, 5 mg p.o. b.i.d. Prevena dressing to be placed by PA. Follow up in 1 week for Prevena dressing change, to routine bulky dressing after that. The patient states he understands all of her postural indiscretion exercises. Continue with present case management assessment and potential discharge later today after PT, OT.
[2019-04-19] MEDS ORDERED: dexAMETHasone 10 MG in SYRINGE 0 ML IV SCH (08:00)
[2019-04-19] MEDS: PANTOprazole 40 MG TAB PO SCH (08:35)
[2019-04-19] MEDS: MULTIVITAMIN TAB PO SCH (08:35)
[2019-04-19] MEDS: FERROUS GLUCONATE 324 MG TAB PO SCH (08:35)
[2019-04-19] MEDS: DOCUSATE SODIUM 100 MG CAP PO SCH (08:35)
[2019-04-19] MEDS: ASCORBIC ACID 500 MG TAB PO SCH (08:36)
--- NOTE | 2019-04-19 08:36 | Anesthesiology Progress Note ---
Date of Service April 19, 2019 Anesthesia Post Procedure Vital Signs Vital Signs: Temp Pulse Pulse Pulse Pulse Resp BP 04/19/19 08:20 36.7 C 65 16 04/19/19 03:30 37.0 C 57 L 16 04/18/19 23:59 36.8 C 60 15 04/18/19 21:03 70 104/68 04/18/19 19:16 36.5 C 77 16 04/18/19 16:36 68 20 04/18/19 15:58 36.7 C 64 20 04/18/19 15:45 73 20 04/18/19 15:15 04/18/19 15:02 63 04/18/19 15:01 65 18 04/18/19 13:00 36.6 C 72 20 04/18/19 12:00 36.8 C 68 20 04/18/19 11:02 36.7 C 63 20 04/18/19 10:30 36.4 C L 57 L 22 04/18/19 10:00 36.4 C L 55 L 16 04/18/19 09:43 36.3 C L 64 15 04/18/19 09:35 55 L 13 04/18/19 09:25 55 L 15 04/18/19 09:15 50 L 13 87/49 L 04/18/19 09:05 56 L 18 103/61 04/18/19 08:55 56 L 12 102/58 L 04/18/19 08:45 61 19 93/56 L 04/18/19 08:35 36.9 C 58 L 15 87/56 L BP Pulse Ox 04/19/19 08:20 111/69 96 04/19/19 03:30 101/63 95 04/18/19 23:59 101/64 95 04/18/19 21:03 04/18/19 19:16 101/62 91 04/18/19 16:36 92 04/18/19 15:58 121/70 99 04/18/19 15:45 92 04/18/19 15:15 89 L 04/18/19 15:02 111/67 04/18/19 15:01 93 04/18/19 13:00 128/75 96 04/18/19 12:00 109/70 94 04/18/19 11:02 115/72 95 01/22/20 10:30 121/69 94 01/22/20 10:00 124/69 93 04/18/19 09:43 102/66 93 04/18/19 09:35 99/58 L 97 04/18/19 09:25 96/65 L 94 04/18/19 09:15 92 04/18/19 09:05 96 04/18/19 08:55 94 04/18/19 08:45 95 04/18/19 08:35 95 Pain Intensity Left Hip: Pain Intensity: 2 Notes Mental Status: alert / awake / arousable Patient Amnestic to Procedure: Yes Nausea / Vomiting: adequately controlled Pain: adequately controlled Airway Patency, RR, SpO2: stable & adequate BP & HR: stable & adequate Hydration State: stable & adequate Neuraxial Anesthesia: was administered and sensory block resolved Anesthetic Complications: no major complications apparent
[2019-04-19] MEDS ORDERED: APIXABAN 5 MG TABLET PO SCH (09:00)
--- NOTE | 2019-04-19 09:01 | Orthopedic Progress Note ---
Date of Service April 19, 2019 Assessment & Plan (1) S/P total hip arthroplasty: Patient is dressings were removed by me and a Prevena wound VAC was placed. This will remain in place for the next week. Follow-up with me on April 26 in the office for wound VAC removal PT/OT this morning. Anticipate discharged home today with home health services. Continue his Eliquis as previously prescribed. Prescription for Percocet has been sent to his pharmacy, to be taken every 4 hours as needed Continue hip precautions and use of his abduction pillow when sleeping Subjective Patient is seen in his room this morning. He denies any chest pain, shortness of breath, nausea, vomiting, or abdominal pain. No further syncopal episodes. He states he slept fairly well. He has been up and out of bed to the bathroom this morning. Hip pain is tolerable. No other complaints. Review of Systems Review of Systems: Unchanged from yesterday Physical Exam Physical Exam: General: Well-developed, well-nourished, elderly white male, in no acute distress. Laying in bed eating breakfast. Alert and oriented. Skin: Warm and dry with good turgor. No rashes or lesions. Expected postoperative ecchymosis. No significant edema or erythema. Postoperative dressings are dry. There is no active drainage from his postsurgical wound. [place] are intact. Wound edges are well approximated. The patient is not diaphoretic. No abrasions. Musculoskeletal: Patient has intact active flexion and extension of the left knee, ankle, and hip. Supple motion of the left hip passively. Neurologic: Gross sensation is intact across all aspects of the right and left legs by soft touch. Peripheral pulses are 2+. Results & Data Vital Signs (Past 12 Hours) Vital Signs Temp Pulse Pulse Pulse Resp BP BP 04/19/19 08:20 36.7 C 65 16 111/69 04/19/19 03:30 37.0 C 57 L 16 101/63 04/18/19 23:59 36.8 C 60 15 101/64 04/18/19 21:03 70 104/68 Pulse Ox 04/19/19 08:20 96 04/19/19 03:30 95 04/18/19 23:59 95 04/18/19 21:03 Laboratory Results H&H obtained this morning is 12.8 and 37.8. WBCs 11.58.
[2019-04-19] MEDS: OXYCODONE HCL IR 5 MG TAB (IMMEDIATE RELEASE) PO PRN (12:11)
[2019-04-19 12:38] VITALS: BP 101/64; PULSE 71; TEMP 98.1; O2SAT 96
--- NOTE | 2019-04-19 12:38 | Hospitalist Progress Note ---
Date of Service April 19, 2019 Assessment & Plan (1) Syncope: occurred while sitting in chair on 04/18 associated with diaphoresis, nausea, never had chest pain or pressure he was completely oriented and alert after the event, able to answer questions EKG with sinus rhythm, no ischemic changes HR in the 70's, blood pressure stable on two separate checks blood sugar normal at 125 Hb down a little at 13 from 16 prior to surgery but would not cause syncope Cr stable, troponin negative, lactic acid 2 no further symptoms over the next 24 hours he is stable for discharge from medical perspective (2) Pulmonary emboli: h/o PE after surgery for kidney stones resumed Eliquis today Eliquis was stopped 3 days prior to surgery, bridged with Lovenox (3) Hypertension: BP is stable can continue metoprolol (4) History of atrial fibrillation: in NSR on 12 lead EKG, rates in 70 takes Eliquis, resume today Subjective patient feeling well since yesterday, no further issues ambulating with therapy today, no symptoms reviewed labs, CBC and BMP stable ortho plans to send home, I agree Review of Systems Review of Systems: All systems reviewed & are unremarkable except as noted in HPI & below Musculoskeletal: + joint pain (left hip pain) Physical Exam Constitutional: well developed and well nourished; no acute distress Eyes: PERRL, conjunctivae normal, anicteric sclerae ENMT: external ear and nose normal, oropharynx normal Neck: trachea midline, no thyromegaly Respiratory: normal respiratory effort, lungs clear to auscultation Cardiovascular: RRR, no murmur, no edema Gastrointestinal (Abdomen): normal bowel sounds, soft, nontender, no hepatosplenomegaly Musculoskeletal: no cyanosis or clubbing, extremities motor strength 5/5 (left hip with dressing, tender) Skin: no rashes, warm and dry Neurologic: patellar DTR's 2+ bilat, sensation intact and PERRL, EOMI, accommodation nl, no face palsy, no dysarthria Psychiatric: A+Ox3, euthymic affect Lymphatic: no cervical or axillary lymphadenopathy Results & Data Vital Signs (Past 12 Hours) Vital Signs Temp Pulse Pulse Pulse Resp BP BP 04/19/19 11:39 36.7 C 70 16 101/64 04/19/19 11:20 36.8 C 71 20 112/61 04/19/19 08:20 36.7 C 65 16 111/69 04/19/19 07:50 36.5 C 63 18 101/64 04/19/19 03:30 37.0 C 57 L 16 101/63 Pulse Ox 04/19/19 11:39 96 04/19/19 11:20 92 04/19/19 08:20 96 04/19/19 07:50 93 04/19/19 03:30 95 Laboratory Results Laboratory Results - last 24 hr 04/18/19 04/18/19 04/18/19 14:56 15:08 15:08 WBC 14.26 H RBC 4.63 L Hgb 13.9 L Hct 40.2 L MCV 86.8 MCH 30.0 MCHC 34.6 RDW Std Deviation 44.8 RDW Coeff of Abdi 14.2 Plt Count 187 MPV 9.7 Immature Gran % (Auto) Neut % (Auto) Lymph % (Auto) Garvin % (Auto) Eos % (Auto) Baso % (Auto) Immature Gran # (Auto) Neut # (Auto) Lymph # (Auto) Garvin # (Auto) Eos # (Auto) Baso # (Auto) Sodium Cancelled Potassium Cancelled Chloride Cancelled Carbon Dioxide Cancelled Anion Gap Cancelled BUN Cancelled Creatinine Cancelled Est Cr Clr Drug Dosing Cancelled Est GFR ( Amer) Cancelled Est GFR (Non-Af Amer) Cancelled BUN/Creatinine Ratio Cancelled Glucose Cancelled POC Glucose 125 H Lactate Calcium Cancelled Total Bilirubin Cancelled AST Cancelled ALT Cancelled Alkaline Phosphatase Cancelled Troponin I Total Protein Cancelled Albumin Cancelled Globulin Cancelled Albumin/Globulin Ratio Cancelled 04/18/19 04/18/19 04/19/19 15:08 15:08 05:49 WBC 11.58 H RBC 4.31 L Hgb 12.8 L Hct 37.8 L MCV 87.7 MCH 29.7 MCHC 33.9 RDW Std Deviation 45.9 RDW Coeff of Abdi 14.2 Plt Count 189 MPV 10.0 Immature Gran % (Auto) 0.2 Neut % (Auto) 74.0 Lymph % (Auto) 14.3 Garvin % (Auto) 10.3 Eos % (Auto) 1.0 Baso % (Auto) 0.2 Immature Gran # (Auto) 0.02 Neut # (Auto) 8.57 H Lymph # (Auto) 1.66 Garvin # (Auto) 1.19 H Eos # (Auto) 0.12 Baso # (Auto) 0.02 Sodium 139 Potassium 3.8 Chloride 109 H Carbon Dioxide 26 Anion Gap 4.0 BUN 18 Creatinine 1.04 Est Cr Clr Drug Dosing 66.0 Est GFR ( Amer) 77.7 Est GFR (Non-Af Amer) 67.0 BUN/Creatinine Ratio 17.4 Glucose 114 H POC Glucose Lactate 2.3 H* Calcium 8.5 Total Bilirubin 0.8 AST 25 ALT 23 Alkaline Phosphatase 51 Troponin I < 0.015 Total Protein 5.8 L Albumin 2.6 L Globulin 3.2 Albumin/Globulin Ratio 0.8 L 04/19/19 05:49 WBC RBC Hgb Hct MCV MCH MCHC RDW Std Deviation RDW Coeff of Abdi Plt Count MPV Immature Gran % (Auto) Neut % (Auto) Lymph % (Auto) Garvin % (Auto) Eos % (Auto) Baso % (Auto) Immature Gran # (Auto) Neut # (Auto) Lymph # (Auto) Garvin # (Auto) Eos # (Auto) Baso # (Auto) Sodium 139 Potassium 4.3 Chloride 108 H Carbon Dioxide 30 Anion Gap 1.0 L BUN 19 H Creatinine 1.02 Est Cr Clr Drug Dosing 67.2 Est GFR ( Amer) 79.5 Est GFR (Non-Af Amer) 68.6 BUN/Creatinine Ratio 18.7 Glucose 109 H POC Glucose Lactate Calcium 8.6 Total Bilirubin AST ALT Alkaline Phosphatase Troponin I Total Protein Albumin Globulin Albumin/Globulin Ratio Medications Administered Current Inpatient Medications Acetaminophen (Tylenol) 1,000 mg PO Q8 [facility] Stop: 05/18/19 13:59 Last Admin: 04/19/19 05:13 Dose: 1,000 mg Documented by: Al Hydrox/Mg Hydrox/Simethicone (Maalox) 15 ml PO Q4H PRN PRN Reason: Heartburn Stop: 05/18/19 10:20 Apixaban (Eliquis) 5 mg PO BID [facility] Stop: 05/19/19 08:59 Last Admin: 04/19/19 08:35 Dose: 5 mg Documented by: Ascorbic Acid (Vitamin C) 500 mg PO BIDM [facility] Stop: 05/18/19 16:59 Last Admin: 04/19/19 08:36 Dose: 500 mg Documented by: Bisacodyl (Dulcolax) 10 mg OK DAILY PRN PRN Reason: Constipation Stop: 05/18/19 10:20 Diphenhydramine HCl (Benadryl) 25 mg IV Q8H PRN PRN Reason: Itching Stop: 05/18/19 10:20 Docusate Sodium (Colace) 100 mg PO BID [facility] Stop: 05/18/19 10:44 Last Admin: 04/19/19 08:35 Dose: 100 mg Documented by: Ferrous Gluconate (Ferrous Gluconate) 324 mg PO BIDM [facility] Stop: 05/18/19 16:59 Last Admin: 04/19/19 08:35 Dose: 324 mg Documented by: Hydromorphone HCl (Dilaudid) 0.5 mg IV Q2H PRN PRN Reason: Pain Stop: 05/02/19 10:20 Magnesium Hydroxide (Milk Of Magnesia) 30 ml PO Q6H PRN PRN Reason: Constipation Stop: 05/18/19 10:20 Metoclopramide HCl (Reglan) 10 mg IV Q6H PRN PRN Reason: Nausea And Vomiting Stop: 05/18/19 10:20 Metoprolol Succinate (Toprol Xl) 37.5 mg PO QPM [facility] Stop: 05/18/19 20:59 Last Admin: 04/18/19 21:07 Dose: 37.5 mg Documented by: Miscellaneous (Order Awaiting Action) 1 ea N/A QS [facility] Stop: 05/18/19 15:59 Last Admin: 04/19/19 08:35 Dose: Not Given Documented by: Multivitamins (Multivitamin Tab) 1 tab PO QAM [facility] Stop: 05/18/19 10:44 Last Admin: 04/19/19 08:35 Dose: 1 tab Documented by: Naloxone HCl (Narcan) 0.1 mg IV Q5M PRN PRN Reason: Oversedation/Resp Depression Stop: 05/18/19 10:20 Ondansetron HCl (Zofran) 4 mg IV Q6H PRN PRN Reason: Nausea And Vomiting Stop: 05/18/19 10:20 Last Admin: 04/18/19 15:01 Dose: 4 mg Documented by: Oxycodone HCl (Roxicodone Immediate Rel) 5 - 10 mg PO Q4H PRN PRN Reason: Pain Stop: 05/02/19 10:20 Last Admin: 04/19/19 12:11 Dose: 5 mg Documented by: Pantoprazole Sodium (Protonix) 40 mg PO QAM NASIR; Protocol Stop: 05/18/19 10:44 Last Admin: 04/19/19 08:35 Dose: 40 mg Documented by: Sennosides (Senokot) 17.2 mg PO HS NASIR Stop: 05/18/19 20:59 Last Admin: 04/18/19 21:07 Dose: Not Given Documented by: Tamsulosin HCl (Flomax) 0.4 mg PO QAM PRN PRN Reason: unable to void Stop: 05/18/19 10:20 PG Care Time/CCT Total # of Minutes Spent Total Time Spent with Patient: Total time spent is greater than 50% in coordination of care (as documented) at patient's floor/unit and/or counseling patient:
== END 2019-04-19 13:20 | disposition home health service (06) | DRG 470 ==
LOC: ASU 04:58 → INTOOBSV 08:41 → 3E 08:41

== ENCOUNTER 2020-09-05 21:39 | Observation (INO) ==
[2020-09-05 22:31] LABS: Basophils # (auto) 0.02 K/uL (0-0.2); Basophils % (auto) 0.2 %; Eosinophils # (auto) 0.04 K/uL (0-0.5); Eosinophils % (auto) 0.4 %; Hematocrit (blood only) 46.3 % (42-52); Hemoglobin 15.7 g/dL (14.0-18.0); Immature Granulocytes # (auto) 0.01 K/uL (0.00-0.02); Immature Granulocytes % (auto) 0.1 %; Lymphocytes # (auto) 1.09 K/uL (1.2-3.4); Lymphocytes % (auto) 11.7 %; Mean Corpuscular Hemoglobin 29.5 pg (25-34); Mean Corpuscular Hgb Conc 33.9 g/dL (32-36); Mean Corpuscular Volume 86.9 fL (80-100); Mean Platelet Volume 10.3 fL (7.4-10.4); Monocytes # (auto) 0.69 K/uL (0.11-0.59); Monocytes % (auto) 7.4 %; Neutrophils # (auto) 7.47 K/uL (1.4-6.5); Neutrophils % (auto) 80.2 %; Platelet Count 250 K/uL (130-400); RDW Coefficient of Variation 14.5 % (11.5-14.5); Red Blood Count 5.33 M/uL (4.7-6.1); White Blood Count 9.32 K/uL (4.8-10.8)
[2020-09-05 22:33] LABS: iSTAT Creatinine 0.9 mg/dl (0.6-1.3); iSTAT Hemoglobin 15.3 g/dl (14.0-18.0); iSTAT Ionized Calcium 1.22 mmol/l (1.12-1.32)
[2020-09-05 22:37] LABS: Appearance Urine Clear (Clear); Bacteria Urine Automated Negative (Negative); Bilirubin Urine Negative (Negative); Blood Urine 3+ (Negative); Color Urine Dark Yellow; Glucose Urine UA Negative (Negative); Ketones Urine Trace (Negative); Leukocyte Esterase Urine Negative (Negative); Nitrite Urine Negative (Negative); Protein Urine 1+ (Negative); RBC Urine Automated >30 /hpf (0-4); Specific Gravity Urine 1.023 (1.000-1.030); Urobilinogen Urine Negative (Negative)
[2020-09-05] MEDS ORDERED: OPTIRAY 320 100ml IV ONE (22:41)
[2020-09-05 22:47] LABS: Albumin Level 3.2 gm/dl (3.4-5.0); BUN Creatinine Ratio 19.7 (10-20); Bilirubin Direct 0.1 mg/dl (0-0.2); Calcium 9.2 mg/dl (8.5-10.1); Creatinine Clr Calc Pharmacy 75.4 ml/min; Est GFR (African American) 92.7 ml/min
[2020-09-05 22:50] LABS: Bilirubin,Total 0.5 mg/dl (0.2-1); Total Protein 6.8 gm/dl (6.4-8.2)
--- NOTE | 2020-09-06 01:41 | History & Physical Report ---
Date of Service September 06, 2020 Assessment & Plan (1) Calculus of distal left ureter: 7 mm calculus of distal left ureter near the UVJ- NPO NSS + KCl 20 mEq at 100 mils per hour Follow urine culture sensitivity Ceftriaxone 1 g IV daily Zofran 4 mg IV every 6 hours as needed Famotidine 20 mg IV every 12 hours Tamsulosin 0.4 mg p.o. daily Dilaudid 0.25 mg IV every 3 hours as needed moderate pain Dilaudid 0.5 mg IV every 3 hours as needed severe pain Consult urology Dr. Spencer Present on Admission?: Yes (2) Pulmonary embolism: History of DVT/PE- Reportedly 30 years ago postop Present on Admission?: Yes (3) Gastroesophageal reflux disease: Continue omeprazole/pantoprazole Present on Admission?: Yes (4) Allergic rhinitis: Continue azelastine nasal spray Present on Admission?: Yes History of Present Illness Chief Complaint: The patient presents to the emergency department with complaint of left lower quadrant and suprapubic pain, and difficulty urinating Primary Care Provider: EULOGIO Verde The patient is a 80-year-old male with a past medical history including kidney stones, left total hip arthroplasty, atrial fibrillation, lung mass, pulmonary embolism, venous insufficiency, left pulmonary nodule, UTI, GERD, BPH with LUTS, arthritis and allergic rhinitis. He presents with symptoms as noted above. He reports that he has had 4 episodes of kidney stones, with most recent being more than 10 years ago. He does follow with urology Dr. Spencer. Work-up in the emergency department included a CT scan of abdomen and pelvis which was significant for the followin mm distal left ureteral stone near the UVJ. There was stable liver masses and pancreatic body lesion, and stable splenules in the left upper quadrant. Allergies Allergy/AdvReac Type Severity Reaction Status Date / Time Bactrim Allergy Unknown RASH Verified 03/10/17 08:12 sulfamethoxazole Allergy Unknown RASH Verified 09/05/20 23:34 trimethoprim Allergy Unknown RASH Verified 09/05/20 23:34 Home Medications Medication Instructions Recorded Confirmed Type omeprazole 20 mg capsule,delayed 20 mg PO QAM 01/15/19 09/05/20 History release cyanocobalamin (vitamin B-12) 500 500 mcg PO QAM tab 01/16/19 09/05/20 History mcg tablet triamcinolone acetonide 1 applic TOPICAL UD PRN 03/16/19 09/05/20 History metoprolol succinate 25 mg PO HS 04/18/19 09/05/20 History azelastine 205.5 mcg (0.15 %) 2 spray INTRANASAL BID PRN #30 ml 07/19/19 09/05/20 Rx nasal spray sildenafil (pulm.hypertension) 20 20 mg PO DAILY PRN #90 tab 11/13/19 09/05/20 Rx mg tablet cholecalciferol (vitamin D3) 125 mcg PO DAILY 09/05/20 09/05/20 History [Vitamin D3] Past Med/Surg History Medical History (Updated 09/06/20 @ 04:53 by Agusto Bob MD) Acid reflux Anxiety History of atrial fibrillation SINGLE EPISODE FEW YRS AGO, ON ELIQUIS History of DVT (deep vein thrombosis) RLE 30YRS AGO POST OP History of intestinal obstruction 3-4 TIMES, ONCE REQUIRING SURGICAL INTERVENTION History of kidney stones History of pulmonary embolus (PE) S/P BLADDER STONE SURGERY A FEW YEARS AGO. AFIB DIAGNOSED AT THIS TIME. History of skin cancer & RESECTED HTN (hypertension) Varicose vein of leg left leg and repair of Surgical History History of arthroscopy of right knee History of back surgery L4-5 FOR RUPTURED DISC History of bladder stone History of cardiac radiofrequency ablation right leg History of colonoscopy History of endoscopy History of hernia surgery X2 AND 1 REVISION History of lung surgery LEFT WEDGE RESECTION History of surgery on left wrist History of thumb surgery LEFT History of transurethral resection of prostate Nausea and vomiting after administration of anesthetic agent Family History Other Hypertension Social History Smoking Status: Never smoker Second Hand Exposure: No; Do You Dip or Chew Tobacco: No; Tobacco Cessation Education Requested by Patient: No Hx Alcohol Use: Yes Alcohol type: beer Hx Substance Use: No Preferred Language: Irish Communication Ability: Effective Visual Impairment: Partially Limited Hearing Ability: Use of Hearing Aid Human Capital Manager Required: No Beliefs That Will Affect Care: None marital status: Current Living Situation: Spouse Other Information That Helps Us Care for You: No Feels Safe at Home: Yes Safety Concerns: Feels Safe At This Time Assistive Devices: Cane Assistive Devices Comment: cane at times due to hip Review of Systems Review of Systems: The patient denies chest pain, palpitations, shortness of breath, dyspnea on exertion, cough, lower extremity swelling, sore throat, fevers, chills, sweats, nausea, vomiting, diarrhea , constipation, blood in urine or stool, lightheadedness, dizziness, headache, memory loss, loss of consciousness, rash, abnormal bruising or bleeding, imbalance, focal or generalized weakness, numbness or tingling in arms or legs, generalized arthralgias or myalgias, neck pain, or night sweats. The review of systems is otherwise negative other than for that already noted above, and at least 10 systems have been reviewed. Physical Exam Physical Exam: The patient is awake, alert and oriented 3, well developed and well nourished, normocephalic and atraumatic, lying in bed and in no acute distress. HEENT--PERRL, EOMI, mucous membranes and oropharynx dry. Neck--supple. No JVD. No bruits. Thyroid normal, trachea midline, no adenopathy. Heart--normal S1 and S2. No murmurs, rubs or gallops. Lungs--clear bilaterally, no respiratory distress, no accessory muscle use. Abdomen--normal bowel sounds and soft. Nontender. Nondistended, no hernias or masses, no organomegaly. Extremities--no cyanosis or clubbing. No edema. There are good distal pulses b/l. Dermatologic--normal skin turgor, normal color, no abnormal lymph nodes, no rash. Neurologic--cranial nerves II through XII grossly intact. Rheumatologic--normal range of motion. Psychiatric--normal affect. Results & Data Results & Data ([facility]) Vital Signs (Past 12 Hours) Vital Signs Temp Pulse Pulse Resp BP BP Pulse Ox 09/05/20 23:46 64 141/69 H 92 09/05/20 21:44 97.3 F L 58 L 18 138/79 94 Laboratory Results Laboratory Results WBC 9.32 K/uL (4.8-10.8) 09/05/20 22:15 RBC 5.33 M/uL (4.7-6.1) 09/05/20 22:15 Hgb 15.7 g/dL (14.0-18.0) 09/05/20 22:15 POC Hgb 15.3 g/dl (14.0-18.0) 09/05/20 22:21 Hct 46.3 % (42-52) 09/05/20 22:15 POC Hct 45 % (42-52) 09/05/20 22:21 MCV 86.9 fL (80-100) 09/05/20 22:15 MCH 29.5 pg (25-34) 09/05/20 22:15 MCHC 33.9 g/dL (32-36) 09/05/20 22:15 RDW Std Deviation 46.0 fL (36.4-46.3) 09/05/20 22:15 RDW Coeff of Abdi 14.5 % (11.5-14.5) 09/05/20 22:15 Plt Count 250 K/uL (130-400) 09/05/20 22:15 MPV 10.3 fL (7.4-10.4) 09/05/20 22:15 Immature Gran % (Auto) 0.1 % 09/05/20 22:15 Neut % (Auto) 80.2 % 09/05/20 22:15 Lymph % (Auto) 11.7 % 09/05/20 22:15 Graves % (Auto) 7.4 % 09/05/20 22:15 Eos % (Auto) 0.4 % 09/05/20 22:15 Baso % (Auto) 0.2 % 09/05/20 22:15 Neut # (Auto) 7.47 K/uL (1.4-6.5) H 09/05/20 22:15 Lymph # (Auto) 1.09 K/uL (1.2-3.4) L 09/05/20 22:15 Graves # (Auto) 0.69 K/uL (0.11-0.59) H 09/05/20 22:15 Eos # (Auto) 0.04 K/uL (0-0.5) 09/05/20 22:15 Baso # (Auto) 0.02 K/uL (0-0.2) 09/05/20 22:15 Immature Gran # (Auto) 0.01 K/uL (0.00-0.02) 06/11/21 22:15 POC Sodium 141 mmol/L (135-144) 09/05/20 22:21 Sodium 139 mmol/L (136-145) 09/05/20 22:15 POC Potassium 4.0 mmol/L (3.3-5.0) 09/05/20 22:21 Potassium 4.0 mmol/L (3.5-5.1) 09/05/20 22:15 POC Chloride 102 mmol/L (101-112) 09/05/20 22:21 Chloride 107 mmol/L (98-107) 09/05/20 22:15 Carbon Dioxide 27 mmol/L (21-32) 09/05/20 22:15 POC Total CO2 25 mmol/L (24-31) 09/05/20 22:21 Anion Gap 5.0 (3-11) 09/05/20 22:15 POC Anion Gap 19.0 mmol/L (16-25) 09/05/20 22:21 POC BUN 17 mg/dl (7-18) 09/05/20 22:21 BUN 17 mg/dl (7-18) 09/05/20 22:15 Creatinine 0.88 mg/dl (0.6-1.4) 09/05/20 22:15 POC Creatinine 0.9 mg/dl (0.6-1.3) 09/05/20 22:21 Est Cr Clr Drug Dosing 75.4 ml/min 09/05/20 22:15 Est GFR ( Amer) 92.7 ml/min 09/05/20 22:15 Est GFR (Non-Af Amer) 80.0 ml/min 09/05/20 22:15 BUN/Creatinine Ratio 19.7 (10-20) 09/05/20 22:15 Glucose 148 mg/dl (70-99) H 09/05/20 22:15 POC Glucose (other) 145 mg/dl (70-99) H 09/05/20 22:21 Calcium 9.2 mg/dl (8.5-10.1) 09/05/20 22:15 POC Ioniz Calcium Oksana 1.22 mmol/l (1.12-1.32) 09/05/20 22:21 Total Bilirubin 0.5 mg/dl (0.2-1) 09/05/20 22:15 Direct Bilirubin 0.1 mg/dl (0-0.2) 09/05/20 22:15 AST 14 U/L (15-37) L 09/05/20 22:15 ALT 18 U/L (12-78) 09/05/20 22:15 Alkaline Phosphatase 58 U/L (45-117) 09/05/20 22:15 Total Protein 6.8 gm/dl (6.4-8.2) 09/05/20 22:15 Albumin 3.2 gm/dl (3.4-5.0) L 09/05/20 22:15 Lipase 93 U/L (73-393) 09/05/20 22:15 Urine Color Dark Yellow 09/05/20 22:25 Urine Appearance Clear (Clear) 09/05/20 22:25 Urine pH 5.0 (4.5-7.5) 09/05/20 22:25 Ur Specific Decker 1.023 (1.000-1.030) 09/05/20 22:25 Urine Protein 1+ (Negative) H 09/05/20 22:25 Urine Glucose (UA) Negative (Negative) 09/05/20 22:25 Urine Ketones Trace (Negative) H 09/05/20 22:25 Urine Blood 3+ (Negative) H 09/05/20 22:25 Urine Nitrite Negative (Negative) 09/05/20 22:25 Urine Bilirubin Negative (Negative) 09/05/20 22:25 Urine Urobilinogen Negative (Negative) 09/05/20 22:25 Ur Leukocyte Esterase Negative (Negative) 09/05/20 22:25 Urine WBC (Auto) 1-5 /hpf (0-5) 09/05/20 22:25 Urine RBC (Auto) >30 /hpf (0-4) H 09/05/20 22:25 U Hyaline Cast (Auto) 1-5 /lpf (0-5) 09/05/20 22:25 U Epithel Cells (Auto) 5-10 /lpf (0-5) H 09/05/20 22:25 Urine Bacteria (Auto) Negative (Negative) 09/05/20 22:25 COVID-19 Eval Order Covid19 at [facility] 09/06/20 01:11 SARS-CoV-2 (PCR) NEGATIVE (Negative) 09/06/20 01:11 Diagnostic Findings [facility] Patient: SHIRA BILLINGSLEY SR (Male) : 36 Status: ER Date: 09/05/20 22:45 Room #: History: RUQ mass, 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 on 09/06/2020 12:36 AM (-07:00) History states 'appendix removed', however a normal appearing appendix is visualized, as on the prior CT ABDOMEN & PELVIS With Contrast: Prior CT 01/01/2020. No ultrasound priors available. 7 mm obstructing calculus in the distal left ureter near the UVJ. Mild left hydroureteronephrosis and surrounding fat stranding. Bilateral renal low-density lesions. Similar appearance of lobular low-density masses within the liver containing coarse calcifications. Largest 5.4 cm. Gallbladder appears normal. No obvious intrahepatic or extrahepatic biliary dilation. No obvious pancreatic ductal dilation. Stable small pancreatic body low-density lesion Stable appearance of splenules in the left upper quadrant. Normal appendix. Colonic diverticulosis. Degenerative changes of the spine. Radiologist: Mauricio Polo M.D. Study ready at 00:00 and initial results transmitted at 00:34 *This report constitutes a preliminary interpretation only. Non-acute findings felt to be unrelated to the clinical presentation may not be discussed in this report. The study will be interpreted and a final report will be generated by the local Radiologist the following shift. To reach the hospital radiology department call [phone]. If a discrepancy is found between the preliminary and final interpretations of this study, please notify us via our Client Portal at [email or web address] under QA Exams.You can also fax this report with a description of the discrepancy, or include the final report, to our daytime fax number [phone].If faxing, please indicate the severity of discrepancy using one of the following categories: [ ] 1 - Agree/Informational [ ] 2 - Unlikely to Affect Management [ ] 3 - Possible Eventual Change of Management [ ] 4 - Probable Immediate Change of Management For all other patient related information, please fax us at [phone]. [id number] Code Status & VTE Plan Code Status Full code VTE Prophylaxis Plan VTE Prophylaxis will be ordered: Yes PG Care Time/CCT Total # of Minutes Spent Total Time Spent with Patient: Total time spent is greater than 50% in coordination of care (as documented) at patient's floor/unit and/or counseling patient: Coding Level of Care Code 65936 Initial Inpt Care Lvl 2 Diagnoses Calculus of distal left ureter N20.1 Pulmonary embolism I26.99 Gastroesophageal reflux disease K21.9 Allergic rhinitis J30.9
--- NOTE | 2020-09-06 01:56 | Emergency Department Note ---
History of Present Illness General Chief Complaint: Abdominal Pain Stated Complaint: LOWER ABDOMINAL PAIN Time Seen by Provider: 09/05/20 21:49 History of Present Illness Provider Complaint: abdominal pain Onset (ago): 3 hour(s) Pain Consistency: constant Location: LLQ Radiation: none Severity: severe Maximum Pain Intensity: 9 Current Pain Intensity: 9 Quality: + stabbing, + aching, + sharp and + dull Relieved By: + nothing Exacerbated By: + nothing Context: no foreign travel, no possible food poisoning, no recent antibiotic use, no recent surgery/procedure and no history of similar episodes Associated Symptoms: no nausea, no vomiting, no diarrhea, no fever, no chills, no constipation, no dysuria, no hematemesis, no hematochezia, no melena, no hematuria, no anorexia, no syncope, no headache, no neck pain, no back pain and no chest pain Home Medications Medication Instructions Recorded Confirmed Type omeprazole 20 mg capsule,delayed 20 mg PO QAM 01/15/19 09/05/20 History release cyanocobalamin (vitamin B-12) 500 500 mcg PO QAM tab 01/16/19 09/05/20 History mcg tablet triamcinolone acetonide 1 applic TOPICAL UD PRN 03/16/19 09/05/20 History metoprolol succinate 25 mg PO HS 04/18/19 09/05/20 History azelastine 205.5 mcg (0.15 %) 2 spray INTRANASAL BID PRN #30 ml 07/19/19 09/05/20 Rx nasal spray sildenafil (pulm.hypertension) 20 20 mg PO DAILY PRN #90 tab 11/13/19 09/05/20 Rx mg tablet cholecalciferol (vitamin D3) 125 mcg PO DAILY 09/05/20 09/05/20 History [Vitamin D3] Allergies Allergy/AdvReac Type Severity Reaction Status Date / Time Bactrim Allergy Unknown RASH Verified 03/10/17 08:12 sulfamethoxazole Allergy Unknown RASH Verified 09/05/20 23:34 trimethoprim Allergy Unknown RASH Verified 09/05/20 23:34 Past Med/Surg History Medical History (Updated 09/06/20 @ 01:57 by Jose Bravo) Acid reflux Anxiety History of atrial fibrillation SINGLE EPISODE FEW YRS AGO, ON ELIQUIS History of DVT (deep vein thrombosis) RLE 30YRS AGO POST OP History of intestinal obstruction 3-4 TIMES, ONCE REQUIRING SURGICAL INTERVENTION History of kidney stones History of pulmonary embolus (PE) S/P BLADDER STONE SURGERY A FEW YEARS AGO. AFIB DIAGNOSED AT THIS TIME. History of skin cancer & RESECTED HTN (hypertension) Varicose vein of leg left leg and repair of Surgical History History of arthroscopy of right knee History of back surgery L4-5 FOR RUPTURED DISC History of bladder stone History of cardiac radiofrequency ablation right leg History of colonoscopy History of endoscopy History of hernia surgery X2 AND 1 REVISION History of lung surgery LEFT WEDGE RESECTION History of surgery on left wrist History of thumb surgery LEFT History of transurethral resection of prostate Nausea and vomiting after administration of anesthetic agent Family History Other Hypertension Social History Smoking Status: Never smoker Hx Alcohol Use: Yes Alcohol type: beer Hx Substance Use: No Preferred Language: [place] Communication Ability: Effective Visual Impairment: Partially Limited Hearing Ability: Use of Hearing Aid Telecom Analyst Required: No Beliefs That Will Affect Care: None marital status: Current Living Situation: Spouse Feels Safe at Home: Yes Assistive Devices: Denture - Upper and Glasses Review of Systems A total of 10 systems reviewed and were otherwise negative Physical Exam Vital Signs: Vital Signs - 24 hr 09/05/20 21:44 09/05/20 23:46 Temperature 36.3 C L Temperature Source Temporal Artery Sc an Pulse Rate 58 L Pulse Rate [Apical ] 64 Respiratory Rate 18 Blood Pressure 138/79 Blood Pressure [Ri ght Arm] 141/69 H Blood Pressure Cecilia n 98 Blood Pressure Cecilia n [Right Arm] 93 Blood Pressure Pos ition [Right Arm] Sitting Pulse Oximetry 94 92 Oxygen Delivery Me thod Room Air Room Air Sepsis Recent Feve r Within 48 Hours No Sepsis New/Unexpla ined Change in Men kym Status N/A Sepsis Action Take n by Nursing No Action Required Physical Exam: Physical Exam GENERAL: He is oriented to person, place, and time. He appears well-developed and well-nourished. He does not appear distressed. HENT: Exam performed. - Head: Normocephalic and atraumatic. - Right Ear: External ear normal. No mastoid tenderness. - Left Ear: External ear normal. No mastoid tenderness. - Mouth/Throat: The oropharynx is clear and moist. No trismus in the jaw. No dental abscesses or uvula swelling. No oropharyngeal exudate or tonsillar abscesses. EYES: Conjunctivae and EOM are normal. Pupils are equal, round, and reactive to light. Right eye exhibits no discharge. Left eye exhibits no discharge. No scleral icterus. NECK: Normal range of motion. Neck supple. No JVD present. No spinous process tenderness present. No carotid bruit present. No rigidity. No tracheal deviation and normal range of motion present. No Brudzinski's sign and no Kernig's sign noted. CV: Normal rate, regular rhythm, normal heart sounds and intact distal pulses. T here is no peripheral edema. Palpable radial pulses bue. PULM/CHEST: Effort normal and breath sounds normal. No respiratory distress. No stridor. He has no wheezes. He has no rales. - Chest Wall: He exhibits no tenderness. ABD: The abdomen is soft. Bowel sounds are normal. He has no distension. No mass is present. There is tenderness to palpation of the left lower quadrant. There is no rebound, no guarding, no Delgado's sign and no tenderness at McBurney's point. Rovsig negative. MUSC/SKEL: Normal range of motion. There is no peripheral edema, tenderness or deformity. LYMPH: No cervical adenopathy. NEURO: He is alert and oriented to person, place, and time. He has normal strength. No cranial nerve deficit or sensory deficit. Coordination and gait normal. GCS eye subscore is 4. GCS verbal subscore is 5. GCS motor subscore is 6. Cerebellar tests wnl. SKIN: Skin is warm and dry. He is not diaphoretic. PSYCH: He has a normal mood and affect. Behavior is normal. Judgment and thought content normal. Course Course 2148: The patient was evaluated in room B9. A complete history and physical exam was performed Cardiac monitoring: An order was placed for continuous cardiac monitoring. The monitor shows a rate of 60 with sinus rhythm 0050: Vital signs stable. Labs show hematuria. CT shows 7 mm kidney stone. Patient states he is a kidney history of kidney stones and has had to have several of them removed surgically. Patient be admitted to the hospital service for pain control and urology evaluation for stent placement tomorrow. Patient be admitted to Dr. Vaca's team. Administered Medications Discontinued Medications Ioversol (Optiray 320 100ml) 91 ml IV ONCE ONE Stop: 09/05/20 22:42 Last Admin: 09/05/20 22:41 Dose: 1 ml Documented by: [id number] Medical Decision Making Laboratory Data Result diagrams: 09/05/20 22:15 09/05/20 22:15 Lab Results 09/05/20 09/05/20 09/05/20 Range/Units 22:15 22:15 22:21 WBC 9.32 (4.8-10.8) K/uL RBC 5.33 (4.7-6.1) M/uL Hgb 15.7 (14.0-18.0) g/dL POC Hgb 15.3 (14.0-18.0) g/dl Hct 46.3 (42-52) % POC Hct 45 (42-52) % MCV 86.9 (80-100) fL MCH 29.5 (25-34) pg MCHC 33.9 (32-36) g/dL RDW Std Deviation 46.0 (36.4-46.3) fL RDW Coeff of Abdi 14.5 (11.5-14.5) % Plt Count 250 (130-400) K/uL MPV 10.3 (7.4-10.4) fL Immature Gran % (Auto) 0.1 % Neut % (Auto) 80.2 % Lymph % (Auto) 11.7 % Slope % (Auto) 7.4 % Eos % (Auto) 0.4 % Baso % (Auto) 0.2 % Neut # (Auto) 7.47 H (1.4-6.5) K/uL Lymph # (Auto) 1.09 L (1.2-3.4) K/uL Slope # (Auto) 0.69 H (0.11-0.59) K/uL Eos # (Auto) 0.04 (0-0.5) K/uL Baso # (Auto) 0.02 (0-0.2) K/uL Immature Gran # (Auto) 0.01 (0.00-0.02) K/uL POC Sodium 141 (135-144) mmol/L Sodium 139 (136-145) mmol/L POC Potassium 4.0 (3.3-5.0) mmol/L Potassium 4.0 (3.5-5.1) mmol/L POC Chloride 102 (101-112) mmol/L Chloride 107 (98-107) mmol/L Carbon Dioxide 27 (21-32) mmol/L POC Total CO2 25 (24-31) mmol/L Anion Gap 5.0 (3-11) POC Anion Gap 19.0 (16-25) mmol/L POC BUN 17 (7-18) mg/dl BUN 17 (7-18) mg/dl Creatinine 0.88 (0.6-1.4) mg/dl POC Creatinine 0.9 (0.6-1.3) mg/dl Est Cr Clr Drug Dosing 75.4 ml/min Est GFR ( Amer) 92.7 ml/min Est GFR (Non-Af Amer) 80.0 ml/min BUN/Creatinine Ratio 19.7 (10-20) Glucose 148 H (70-99) mg/dl POC Glucose (other) 145 H (70-99) mg/dl Calcium 9.2 (8.5-10.1) mg/dl POC Ioniz Calcium Oksana 1.22 (1.12-1.32) mmol/l Total Bilirubin 0.5 (0.2-1) mg/dl Direct Bilirubin 0.1 (0-0.2) mg/dl AST 14 L (15-37) U/L ALT 18 (12-78) U/L Alkaline Phosphatase 58 (45-117) U/L Total Protein 6.8 (6.4-8.2) gm/dl Albumin 3.2 L (3.4-5.0) gm/dl Lipase 93 (73-393) U/L Urine Color Urine Appearance (Clear) Urine pH (4.5-7.5) Ur Specific [place] (1.000-1.030) Urine Protein (Negative) Urine Glucose (UA) (Negative) Urine Ketones (Negative) Urine Blood (Negative) Urine Nitrite (Negative) Urine Bilirubin (Negative) Urine Urobilinogen (Negative) Ur Leukocyte Esterase (Negative) Urine WBC (Auto) (0-5) /hpf Urine RBC (Auto) (0-4) /hpf U Hyaline Cast (Auto) (0-5) /lpf U Epithel Cells (Auto) (0-5) /lpf Urine Bacteria (Auto) (Negative) COVID-19 Eval Order 09/05/20 09/06/20 Range/Units 22:25 01:11 WBC (4.8-10.8) K/uL RBC (4.7-6.1) M/uL Hgb (14.0-18.0) g/dL POC Hgb (14.0-18.0) g/dl Hct (42-52) % POC Hct (42-52) % MCV (80-100) fL MCH (25-34) pg MCHC (32-36) g/dL RDW Std Deviation (36.4-46.3) fL RDW Coeff of Abdi (11.5-14.5) % Plt Count (130-400) K/uL MPV (7.4-10.4) fL Immature Gran % (Auto) % Neut % (Auto) % Lymph % (Auto) % Slope % (Auto) % Eos % (Auto) % Baso % (Auto) % Neut # (Auto) (1.4-6.5) K/uL Lymph # (Auto) (1.2-3.4) K/uL Slope # (Auto) (0.11-0.59) K/uL Eos # (Auto) (0-0.5) K/uL Baso # (Auto) (0-0.2) K/uL Immature Gran # (Auto) (0.00-0.02) K/uL POC Sodium (135-144) mmol/L Sodium (136-145) mmol/L POC Potassium (3.3-5.0) mmol/L Potassium (3.5-5.1) mmol/L POC Chloride (101-112) mmol/L Chloride (98-107) mmol/L Carbon Dioxide (21-32) mmol/L POC Total CO2 (24-31) mmol/L Anion Gap (3-11) POC Anion Gap (16-25) mmol/L POC BUN (7-18) mg/dl BUN (7-18) mg/dl Creatinine (0.6-1.4) mg/dl POC Creatinine (0.6-1.3) mg/dl Est Cr Clr Drug Dosing ml/min Est GFR ( Amer) ml/min Est GFR (Non-Af Amer) ml/min BUN/Creatinine Ratio (10-20) Glucose (70-99) mg/dl POC Glucose (other) (70-99) mg/dl Calcium (8.5-10.1) mg/dl POC Ioniz Calcium Oksana (1.12-1.32) mmol/l Total Bilirubin (0.2-1) mg/dl Direct Bilirubin (0-0.2) mg/dl AST (15-37) U/L ALT (12-78) U/L Alkaline Phosphatase (45-117) U/L Total Protein (6.4-8.2) gm/dl Albumin (3.4-5.0) gm/dl Lipase (73-393) U/L Urine Color Dark Yellow Urine Appearance Clear (Clear) Urine pH 5.0 (4.5-7.5) Ur Specific [place] 1.023 (1.000-1.030) Urine Protein 1+ H (Negative) Urine Glucose (UA) Negative (Negative) Urine Ketones Trace H (Negative) Urine Blood 3+ H (Negative) Urine Nitrite Negative (Negative) Urine Bilirubin Negative (Negative) Urine Urobilinogen Negative (Negative) Ur Leukocyte Esterase Negative (Negative) Urine WBC (Auto) 1-5 (0-5) /hpf Urine RBC (Auto) >30 H (0-4) /hpf U Hyaline Cast (Auto) 1-5 (0-5) /lpf U Epithel Cells (Auto) 5-10 H (0-5) /lpf Urine Bacteria (Auto) Negative (Negative) COVID-19 Eval Order Covid19 at [facility] Imaging Data Radiologist's Impression: Preliminary Findings Only See Final Report For Complete Findings ADDENDUM - Added by Mauricio Polo M.D. on 09/06/2020 12:36 AM (-07:00) History states 'appendix removed', however a normal appearing appendix is visualized, as on the prior CT ABDOMEN & PELVIS With Contrast: Prior CT 01/01/2020. No ultrasound priors available. 7 mm obstructing calculus in the distal left ureter near the UVJ. Mild left hyd roureteronephrosis and surrounding fat stranding. Bilateral renal low-density lesions. Similar appearance of lobular low-density masses within the liver containing coarse calcifications. Largest 5.4 cm. Gallbladder appears normal. No obvious intrahepatic or extrahepatic biliary dilation. No obvious pancreatic ductal dilation. Stable small pancreatic body low-density lesion Stable appearance of splenules in the left upper quadrant. Normal appendix. Colonic diverticulosis. Degenerative changes of the spine. Radiologist: Mauricio Polo M.D. Study ready at 00:00 and initial results transmitted at 00:34 MDM Narrative Vital signs stable. Labs show hematuria. CT shows 7 mm kidney stone. Patient states he is a kidney history of kidney stones and has had to have several of them removed surgically. Patient be admitted to the hospital service for pain control and urology evaluation for stent placement tomorrow. Patient be adm itted to Dr. Vaca's team. Impression & Plan Kidney stone Discharge Plan Visit Data Chief Complaint: Abdominal Pain Stated Complaint: LOWER ABDOMINAL PAIN ED Provider: Jose Bravo Discharge Problem: Kidney stone Patient Disposition: Admitted As Inpatient Forms Stand Alone Forms: [facility] Prescriptions Prescriptions: No Action sildenafil (pulm.hypertension) 20 mg tablet 20 mg PO DAILY PRN (Reason: sexual activity) Qty: 90 RF: 3 omeprazole 20 mg capsule,delayed release(DR/EC) 20 mg PO QAM RF: 0 cyanocobalamin (vitamin B-12) 500 mcg tablet 500 mcg PO QAM RF: 0 azelastine 0.15 % (205.5 mcg) spray,non-aerosol 2 spray INTRANASAL BID PRN (Reason: Nasal Congestion) Qty: 30 RF: 11 triamcinolone acetonide 0.1 % Cream 1 applic TOPICAL UD PRN (Reason: Rash) RF: 0 metoprolol succinate 25 mg tablet extended release 24 hr 25 mg PO HS RF: 0 cholecalciferol (vitamin D3) [Vitamin D3] 125 mcg (5,000 unit) Tablet 125 mcg PO DAILY RF: 0 Referrals Referrals: Amanda Spencer CRNP [Primary Care Provider] -
[2020-09-06] MEDS ORDERED: HYDROmorphone INJ 0.5 MG/0.5 ML SYR IV PRN ×2 (03:00)
[2020-09-06] MEDS ORDERED: ONDANSETRON INJ 2 MG/ML 2 ML VIAL IV PRN ×2 (03:00→14:19)
[2020-09-06] MEDS: cefTRIAXone SODIUM 2,000 MG in DEXTROSE 5% 50 ML IV SCH (03:52)
[2020-09-06] MEDS: FAMOTIDINE 20 MG in SYRINGE 3 ML IV SCH ×2 (03:52→16:24)
[2020-09-06] MEDS: SODIUM CHLORIDE 0.9% 1000ML 1,000 ML IV SCH ×2 (04:12→12:27)
[2020-09-06] MEDS: METOPROLOL SUCC 25MG EXT REL TAB PO SCH ×2 (05:08→21:52)
--- NOTE | 2020-09-06 07:28 | CT Scan Report ---
CT abd pelvis IV con only CLINICAL HISTORY: Left lower quadrant abdominal pain COMPARISON STUDY: 01/01/2020 TECHNIQUE: Patient was scanned in a dynamic helical fashion during intravenous administration of 91 c c of Optiray 320 A dose lowering technique was utilized adhering to the principles of ALARA. CT DOSE: 813.24 mGy.cm FINDINGS: Lower chest: There is mild interlobular septal edema. There are no significant pleural effusions. The re is a small hiatal hernia. Liver: There is a 56 mm central hepatic hypodense lesion containing a central calcification. This rem ains relatively similar to the preceding study. Also evident is a 17 mm right hepatic lobe hypodensit y and 8 mm left hepatic lobe hypodensity. There is also a exophytic 34 mm left hepatic hypodense lesi on containing a central calcification. Gallbladder: Unremarkable. Spleen: Multilobulated versus multiple splenules. There are rim calcifications. Pancreas: There is a 9 mm cystic lesion within the pancreatic tail, statistically representing a side branch IPMN. This remain similar to the prior study. Adrenal glands: Unremarkable. Kidneys: There are multiple bilateral renal cortical cysts. There is left-sided hydronephrosis and hy droureter with left-sided perinephric edema. There is a 6 mm obstructing left UVJ calculus. There is mild left-sided uroepithelial enhancement and superimposed infection cannot be excluded. Bowel: There are no transition zones to indicate bowel obstruction. There is colonic diverticulosis. There is no evidence of acute diverticulitis. There is no evidence of acute appendicitis. Peritoneum: There is no intraperitoneal free air or abdominal ascites. There is a fat-containing umbi lical hernia Vasculature: The abdominal aorta is normal in course and caliber. Adenopathy: None. Pelvic viscera: The bladder, and pelvic viscera are unremarkable. Skeletal structures: There is a total left hip arthroplasty. No destructive osseous lesions are visua lized. IMPRESSION: 1. Obstructing 6 mm distal left ureteral calculus. 2. There is left-sided uroepithelial enhancement and superimposed infection cannot be excluded 3. No evidence of bowel obstruction. No evidence of free air. 4. Other findings as described above. ACT 112: Negative or not required by law. Electronically signed by: Zan Moran M.D. 09/06/2020 7:27 AM
[2020-09-06] MEDS: *AZELASTINE*ORDER AWAITING ACTION SCH ×2 (09:36→16:59)
[2020-09-06] MEDS: TAMSULOSIN HCL 0.4 MG CAP PO SCH (10:32)
--- NOTE | 2020-09-06 11:07 | Urology Consultation ---
Date of Consultation September 06, 2020 Assessment & Plan (1) Calculus of distal left ureter: The patient has never been able to pass a stone on his own and has bounced back for uncontrolled pain. Patient to the OR today for left ureteroscopy, laser lithotripsy, and stent placement. Risks and benefits were explained. Patient to OR today for the above. Present on Admission?: No History of Present Illness Reason for Consultation: 80 yo male with a history of multiple stones in the past. Admitted from the ER with uncontrolled pain secondary to a 6mm left UVJ stone with hydronephrosis. He currently has his pain controlled quite well. No fevers or N/V. No CP or SOB. He has had multiple stone surgeries in the past but reports no surgeries for about 15 years. Attending Physician: Stefani May MD Allergies Allergy/AdvReac Type Severity Reaction Status Date / Time Bactrim Allergy Unknown RASH Verified 03/10/17 08:12 sulfamethoxazole Allergy Unknown RASH Verified 09/05/20 23:34 trimethoprim Allergy Unknown RASH Verified 09/05/20 23:34 Home Medications Medication Instructions Recorded Confirmed Type omeprazole 20 mg capsule,delayed 20 mg PO QAM 01/15/19 09/05/20 History release cyanocobalamin (vitamin B-12) 500 500 mcg PO QAM tab 01/16/19 09/05/20 History mcg tablet triamcinolone acetonide 1 applic TOPICAL UD PRN 03/16/19 09/05/20 History metoprolol succinate 25 mg PO HS 04/18/19 09/05/20 History azelastine 205.5 mcg (0.15 %) 2 spray INTRANASAL BID PRN #30 ml 07/19/19 09/05/20 Rx nasal spray sildenafil (pulm.hypertension) 20 20 mg PO DAILY PRN #90 tab 11/13/19 09/05/20 Rx mg tablet cholecalciferol (vitamin D3) 125 mcg PO DAILY 09/05/20 09/05/20 History [Vitamin D3] Patient History Medical History Acid reflux Anxiety History of atrial fibrillation SINGLE EPISODE FEW YRS AGO, ON ELIQUIS History of DVT (deep vein thrombosis) RLE 30YRS AGO POST OP History of intestinal obstruction 3-4 TIMES, ONCE REQUIRING SURGICAL INTERVENTION History of kidney stones History of pulmonary embolus (PE) S/P BLADDER STONE SURGERY A FEW YEARS AGO. AFIB DIAGNOSED AT THIS TIME. History of skin cancer & RESECTED HTN (hypertension) Varicose vein of leg left leg and repair of Surgical History History of arthroscopy of right knee History of back surgery L4-5 FOR RUPTURED DISC History of bladder stone History of cardiac radiofrequency ablation right leg History of colonoscopy History of endoscopy History of hernia surgery X2 AND 1 REVISION History of lung surgery LEFT WEDGE RESECTION History of surgery on left wrist History of thumb surgery LEFT History of transurethral resection of prostate Nausea and vomiting after administration of anesthetic agent Family History Other Hypertension Social History Smoking Status: Never smoker Second Hand Exposure: No; Do You Dip or Chew Tobacco: No; Tobacco Cessation Education Requested by Patient: No Hx Alcohol Use: Yes Alcohol type: beer Hx Substance Use: No Preferred Language: [place] Communication Ability: Effective Visual Impairment: Partially Limited Hearing Ability: Use of Hearing Aid Material Control Manager Required: No Beliefs That Will Affect Care: None marital status: Current Living Situation: Spouse Other Information That Helps Us Care for You: No Feels Safe at Home: Yes Safety Concerns: Feels Safe At This Time Assistive Devices: None Assistive Devices Comment: cane at times due to hip Review of Systems Review of Systems: All systems reviewed & are unremarkable except as noted in HPI & below Physical Exam Physical Exam: NAD AVSS nonlabored regular rate' soft NT ND AO x3 Normal mood Mild LE edema Results & Data ([facility]) Vital Signs (Past 12 Hours) Vital Signs Temp Pulse Pulse Resp BP BP Pulse Ox 09/06/20 07:19 36.5 C 57 L 16 144/81 H 96 09/06/20 05:07 62 131/83 09/06/20 02:55 36.4 C L 63 16 131/77 94 09/06/20 02:16 58 L 129/73 94 09/05/20 23:46 64 141/69 H 92 PG Care Time/CCT Total # of Minutes Spent Total Time Spent with Patient: Total time spent is greater than 50% in coordination of care (as documented) at patient's floor/unit and/or counseling patient: [place] [address] Initial Inpt Care Lvl 3 Patient Type New History Detailed Exam Detailed Medical Decision Making Moderate Complexity Diagnoses Calculus of distal left ureter N20.1 Time Spent (min) 25
--- NOTE | 2020-09-06 12:01 | Anesthesiology Consultation ---
Date of Service September 06, 2020 Assessment & Plan Chart Review Chart Review: Acceptable Risk for Surgery and Patient NOT seen in Pre Admission Testing Consults Requested none ASA ASA3 History Surgery Operation Date: 09/06/20 13:30 Proposed Procedures p Cystoscopy Retrograde - Lulu Argueta MD Height/Weight Height: 5 ft 9 in Weight: 98.1 kg Allergies Allergy/AdvReac Type Severity Reaction Status Date / Time Bactrim Allergy Unknown RASH Verified 03/10/17 08:12 sulfamethoxazole Allergy Unknown RASH Verified 09/05/20 23:34 trimethoprim Allergy Unknown RASH Verified 09/05/20 23:34 Medications Home Medications Medication Instructions Recorded Confirmed Last Taken omeprazole 20 mg capsule,delayed 20 mg PO QAM 01/15/19 09/05/20 09/05/20 release cyanocobalamin (vitamin B-12) 500 500 mcg PO QAM tab 01/16/19 09/05/20 09/05/20 mcg tablet triamcinolone acetonide 1 applic TOPICAL UD PRN 03/16/19 09/05/20 Unknown metoprolol succinate 25 mg PO HS 04/18/19 09/05/20 09/05/20 azelastine 205.5 mcg (0.15 %) 2 spray INTRANASAL BID PRN #30 ml 07/19/19 09/05/20 Unknown nasal spray sildenafil (pulm.hypertension) 20 20 mg PO DAILY PRN #90 tab 11/13/19 09/05/20 Unknown mg tablet cholecalciferol (vitamin D3) 125 mcg PO DAILY 09/05/20 09/05/20 09/05/20 [Vitamin D3] Active Medications Generic Name Dose Route Start Last Admin Trade Name Lewisq PRN Reason Stop Dose Admin Famotidine 20 mg/ Syringe 5 mls @ 2.5 mls/min 09/06/20 04:00 09/06/20 03:52 IV 10/06/20 03:59 2.5 mls/min Q12H NASIR Administration Ceftriaxone Sodium 2,000 mg/ 70 mls @ 100 mls/hr 09/06/20 04:00 09/06/20 04:34 Dextrose IV 09/16/20 03:59 Infused Q24H NASIR Infusion Protocol Sodium Chloride 1,000 mls @ 125 mls/hr 09/06/20 04:05 09/06/20 04:12 Nss 1000ml IV 09/06/20 20:04 125 mls/hr .Q8H NASIR Administration Metoprolol Succinate 25 mg 09/06/20 04:00 09/06/20 05:08 Metoprolol Succ 25mg Ext Rel Tab PO 10/06/20 03:59 25 mg HS NASIR Administration Miscellaneous 1 ea 09/06/20 08:00 09/06/20 09:36 *Azelastine*Order Awaiting Action N/A 10/06/20 07:59 Not Given QS NASIR Tamsulosin HCl 0.4 mg 09/06/20 09:00 09/06/20 10:32 Tamsulosin Hcl 0.4 Mg Cap PO 10/06/20 08:59 0.4 mg QAM NASIR Administration Past Medical History Medical History Acid reflux Anxiety History of atrial fibrillation SINGLE EPISODE FEW YRS AGO, ON ELIQUIS History of DVT (deep vein thrombosis) RLE 30YRS AGO POST OP History of intestinal obstruction 3-4 TIMES, ONCE REQUIRING SURGICAL INTERVENTION History of kidney stones History of pulmonary embolus (PE) S/P BLADDER STONE SURGERY A FEW YEARS AGO. AFIB DIAGNOSED AT THIS TIME. History of skin cancer & RESECTED HTN (hypertension) Varicose vein of leg left leg and repair of Exercise / Class Metabolic Activity III < 4 Walking/Shop/Light housework Past Family History Family History Other Hypertension Past Surgical History Surgical History History of arthroscopy of right knee History of back surgery L4-5 FOR RUPTURED DISC History of bladder stone History of cardiac radiofrequency ablation right leg History of colonoscopy History of endoscopy History of hernia surgery X2 AND 1 REVISION History of lung surgery LEFT WEDGE RESECTION History of surgery on left wrist History of thumb surgery LEFT History of transurethral resection of prostate Nausea and vomiting after administration of anesthetic agent Past Anesthesia History No Hx of Anesthesia Complications and No Family Hx of Anesthesia Complications History of PONV No Hx of PONV and No Hx of Motion Sickness Social History Smoking Status: Never smoker Do You Dip or Chew Tobacco: No Hx Alcohol Use: Yes Alcohol type: beer alcohol intake frequency: holidays/special occasions only Hx Substance Use: No substance use type: does not use Physical Exam Vital Signs Last Vital Signs Temp 36.5 C 09/06/20 07:19 Pulse 57 L 09/06/20 07:19 Resp 16 09/06/20 07:19 BP 144/81 H 09/06/20 07:19 Pulse Ox 96 09/06/20 07:19 Testing Laboratory Results 09/05/20 22:15 09/05/20 22:15 Urine Color Dark Yellow 09/05/20 22:25 Urine Appearance Clear (Clear) 09/05/20 22:25 Urine pH 5.0 (4.5-7.5) 09/05/20 22:25 Ur Specific [place] 1.023 (1.000-1.030) 09/05/20 22:25 Urine Protein 1+ (Negative) H 09/05/20 22:25 Urine Glucose (UA) Negative (Negative) 09/05/20 22:25 Urine Ketones Trace (Negative) H 09/05/20 22:25 Urine Nitrite Negative (Negative) 09/05/20 22:25 Ur Leukocyte Esterase Negative (Negative) 09/05/20 22:25 Urine WBC (Auto) 1-5 /hpf (0-5) 09/05/20 22:25 Urine RBC (Auto) >30 /hpf (0-4) H 09/05/20 22:25 U Hyaline Cast (Auto) 1-5 /lpf (0-5) 09/05/20 22:25 U Epithel Cells (Auto) 5-10 /lpf (0-5) H 09/05/20 22:25 Urine Bacteria (Auto) Negative (Negative) 09/05/20 22:25 Electrocardiogram Date: 04/22/19 Findings: + NSR @ (at 71) and + NSST changes Echocardiogram Date: 08/26/17 EF: 65% LV Function: normal RWMA: + none Other Findings: + atrial enlargement (biatrial enlargement), + LVH (mild) and + diastolic dysfunction (grade 1) Valvular Disease: + no significant valvular disease and + MR (mild)
[2020-09-06] MEDS ORDERED: fentaNYL citrate 100 MCG/2 ML VIAL ONE (14:07)
[2020-09-06] MEDS ORDERED: ONDANSETRON INJ 2 MG/ML 2 ML VIAL ONE (14:11)
[2020-09-06] MEDS ORDERED: PROPOFOL IV EMULSION 10 MG/ML 20 ML VIAL IV ONE (14:11)
[2020-09-06] MEDS ORDERED: LIDOCAINE 2% 2 ML VIAL/AMP(20MG/ML) INFIL ONE (14:11)
[2020-09-06] MEDS ORDERED: DIATRIZOATE MEGLUMINE 30% 100ML VIAL INSTIL PRN (14:12)
[2020-09-06] MEDS ORDERED: fentaNYL citrate 100 MCG/2 ML VIAL IV PRN (14:19)
[2020-09-06] MEDS ORDERED: ATROPINE SULFATE 0.1 MG/ML 10ML SYR IV PRN (14:19)
[2020-09-06] MEDS ORDERED: NALOXONE HCL 0.4 MG/1 ML VIAL/CARP IV PRN (14:19)
[2020-09-06] MEDS ORDERED: PROMETHAZINE HCL 12.5 MG in SODIUM CHLORIDE 0.9% 50 ML IV PRN (14:19)
[2020-09-06] MEDS ORDERED: FLUMAZENIL 0.1 MG/1 ML 10 ML VIAL IV PRN (14:19)
[2020-09-06] MEDS ORDERED: ePHEDrine sulfate 50 MG/ML AMP IV PRN (14:19)
[2020-09-06] MEDS ORDERED: LABETALOL HCL IV 5 MG/ML 20ML IV PRN (14:19)
--- NOTE | 2020-09-06 14:49 | Hospitalist Progress Note ---
Date of Service September 06, 2020 Assessment & Plan (1) Calculus of distal left ureter: 80yo male with PMHx of a fib, Hx of PE and recurrent calculi admitted with an obstructing left ureteral calculus. Calculus of distal left ureter 6 mm calculus of distal left ureter near the UVJ NPO for surgery, appreciate urology consult- surgery today 09/06 Continue NSS + KCl 20 mEq at 100 mils per hour Urine Cx pending Continue Ceftriaxone 1 g IV daily Continue Tamsulosin 0.4 mg p.o. daily Continue Dilaudid 0.25 mg IV q3h as needed moderate pain and Dilaudid 0.5 mg IV q3h as needed severe pain Lung and pancreas masses stable, noted on CT f/u outpatient Pulmonary embolism: History of DVT/PE Reportedly 30 years ago postop Not on anticoagulation Gastroesophageal reflux disease: Continue omeprazole/pantoprazole Allergic rhinitis: Continue azelastine nasal spray Admission and Anticipated Discharge Date Admission Date: September 06, 2020 Supervising Physician Co-Signing Physician Notes Resident Physician Supervision Note: I independently interviewed and examined the patient and verified the hernandez history and physical, reviewed labs and image studies and agree with resident Dr. Penaloza findings and care plan. Subjective Pt seen this AM and was resting comfortably. Had some difficulty hearing as he did not have his hearing aids. States daughter will be bringing them. Denied pain at the time. Review of Systems Review of Systems: All systems reviewed & are unremarkable except as noted in Subjective Physical Exam Physical Exam: General: Alert, oriented. No acute distress Skin: No noted rashes or bruises Psych: Appropriate mood and affect Neuro: some hearing loss noted HEENT: NC/AT Chest: Nontender to palpation. CV: RRR, Normal s1, s2. No murmurs appreciated Resp: Breath sounds clear bilaterally, no increased effort of breathing. Abdomen:Soft, tender in LLQ, nondistended. Extremities: No edema in lower extremities bilaterally. Results & Data Results & Data ([facility]) Vital Signs (Past 12 Hours) Vital Signs Temp Pulse Resp BP BP Pulse Ox 09/06/20 07:19 36.5 C 57 L 16 144/81 H 96 09/06/20 05:07 62 131/83 09/06/20 02:55 36.4 C L 63 16 131/77 94 Resident Activity Tracking Resident Involvement: Resident Care Provided Care Provided: Adult [facility] Medicine
[2020-09-06] MEDS ORDERED: ePHEDrine sulfate 50 MG/ML SYR ONE (14:55)
--- NOTE | 2020-09-06 15:06 | Post Operative Brief Note ---
PG Immediate Post Op with CF Date of Surgery September 06, 2020 Pre & Post Diagnosis Operation Date: 09/06/20 13:30 Pre-Op Diagnosis: Calculus of distal left ureter Post-Op Diagnosis: Calculus of distal left ureter I identified the patient and participated in the time-out.: Yes Procedure Operation Date: 09/06/20 13:30 Actual Procedures p Cystoscopy; Left Ureteroscopy; Laser Lithotripsy; Left Ureteral Stent Placement(Left) - Lulu Argueta MD Surgeon Lulu Argueta MD Cosmetologist Apprentice none Estimated Blood Loss 0 Findings Consistent with Post-Op Diagnosis Specimens Specimen Description: Permanent Specimen A: Left Ureteral Stone
--- NOTE | 2020-09-06 15:11 | Operative Report ---
PG Post Operative Report Pre & Post Diagnosis Operation Date: 09/06/20 13:30 Pre-Op Diagnosis: Calculus of distal left ureter Post-Op Diagnosis: Calculus of distal left ureter I identified the patient and participated in the time-out.: Yes Procedure Operation Date: 09/06/20 13:30 Actual Procedures p Cystoscopy; Left Ureteroscopy; Laser Lithotripsy; Left Ureteral Stent Placement(Left) - Lulu Argueta MD Surgeon Lulu Argueta MD Records Tech none Estimated Blood Loss 0 Findings Consistent with Post-Op Diagnosis Specimens left ureteral stone Description of Procedure The patient had uncontrolled pain associated with a 6-7 mm left distal ureteral stone. We discussed the options of trial of passage versus surgical intervention and he desired to proceed with intervention. Risks and benefits were explained including the risks of bleeding, infection, damage to surrounding structures, inability to place stent or remove the stone. The patient was placed in a lithotomy position and prepped and draped. A 21 Fr rigid cystoscope was used to examine the bladder and urethra. He has evidence of a prior TURP - but no history of this noted. The bladder was within normal limits. A wire was passed to the level of the kidney. Over this I passed a balloon dilator into the distal ureter - I used a 5cc syringe as opposed to the pump to dilate with contrast in the balloon. I then passed a semirigid ureteroscope into the left distal ureter and could visualize the stone. Using a 270 micron laser fiber I broke the stone into multiple small pieces. I then used a basket to extract the fragments. A 6Fr x 26cm stent was placed over the wire into the kidney. A nice coil was seen in the kidney and bladder. Stone was sent for specimen. The patients bladder was drained. The patient did well today. Discharge per primary team. Will not outpatient f/u for stent removal. I attest to the content of the Intraoperative Record and any orders documented therein. Any exceptions are noted below.
--- NOTE | 2020-09-06 15:24 | Fluoroscopy Report ---
FL retrograde includes kub CLINICAL HISTORY: CYSTO, LT STENT COMPARISON STUDY: CT scan dated 09/05/2020 FLUOROSCOPY TIME: 7 seconds. NUMBER OF FLUOROSCOPIC IMAGES: 1 FINDINGS: A single intraprocedural fluoroscopic spot images provided for interpretation. The ureter i s not visualized. No catheter is identified on this single projection. There is subtle increased dens ity projected over the expected location of the left renal shadow. Extravasated contrast cannot be ex cluded. IMPRESSION: 1. Single intraoperative fluoroscopic spot image. No catheter is visualized. The ureter is not deline ated. ACT 112: Negative or not required by law. Electronically signed by: Zan Moran M.D. 09/06/2020 3:23 PM
--- NOTE | 2020-09-06 15:26 | Anesthesiology Progress Note ---
Date of Service September 06, 2020 Anesthesia Post Procedure Vital Signs Vital Signs: Temp Pulse Pulse Pulse Resp BP BP 09/06/20 15:20 71 20 129/67 09/06/20 15:10 73 18 129/63 09/06/20 15:09 36.7 C 71 16 129/69 09/06/20 07:19 36.5 C 57 L 16 144/81 H 09/06/20 05:07 62 09/06/20 02:55 36.4 C L 63 16 09/06/20 02:16 58 L 09/05/20 23:46 64 09/05/20 21:44 36.3 C L 58 L 18 138/79 BP Pulse Ox 09/06/20 15:20 97 09/06/20 15:10 99 09/06/20 15:09 99 09/06/20 07:19 96 09/06/20 05:07 131/83 09/06/20 02:55 131/77 94 09/06/20 02:16 129/73 94 09/05/20 23:46 141/69 H 92 09/05/20 21:44 94 Pain Intensity Right Abdomen: Pain Intensity: 6 Transfer of Care Handoff Completed per policy Notes Mental Status: alert / awake / arousable Patient Amnestic to Procedure: Yes Nausea / Vomiting: adequately controlled Pain: adequately controlled Airway Patency, RR, SpO2: stable & adequate BP & HR: stable & adequate Hydration State: stable & adequate Anesthetic Complications: no major complications apparent
[2020-09-06] MEDS: ACETAMINOPHEN 325 MG TAB PO PRN (16:12)
[2020-09-07] MEDS: *AZELASTINE*ORDER AWAITING ACTION SCH ×2 (03:08→08:24)
[2020-09-07] MEDS: cefTRIAXone SODIUM 2,000 MG in DEXTROSE 5% 50 ML IV SCH (03:50)
[2020-09-07] MEDS: FAMOTIDINE 20 MG in SYRINGE 3 ML IV SCH (03:51)
[2020-09-07 07:07] LABS: Basophils # (auto) 0.01 K/uL (0-0.2); Basophils % (auto) 0.1 %; Eosinophils # (auto) 0.11 K/uL (0-0.5); Eosinophils % (auto) 1.4 %; Hemoglobin 15.7 g/dL (14.0-18.0); Immature Granulocytes # (auto) 0.01 K/uL (0.00-0.02); Immature Granulocytes % (auto) 0.1 %; Lymphocytes # (auto) 1.59 K/uL (1.2-3.4); Mean Corpuscular Hemoglobin 29.7 pg (25-34); Mean Corpuscular Hgb Conc 34.1 g/dL (32-36); Mean Corpuscular Volume 87.1 fL (80-100); Mean Platelet Volume 10.5 fL (7.4-10.4); Monocytes # (auto) 0.75 K/uL (0.11-0.59); Monocytes % (auto) 9.4 %; Neutrophils # (auto) 5.48 K/uL (1.4-6.5); Platelet Count 244 K/uL (130-400); RDW Coefficient of Variation 14.8 % (11.5-14.5); RDW Standard Deviation 47.5 fL (36.4-46.3); Red Blood Count 5.28 M/uL (4.7-6.1); White Blood Count 7.95 K/uL (4.8-10.8)
[2020-09-07 07:27] LABS: Albumin Level 2.9 gm/dl (3.4-5.0); BUN Creatinine Ratio 15.5 (10-20); Calcium 9.1 mg/dl (8.5-10.1); Creatinine Clr Calc Pharmacy 73.1 ml/min; Est GFR (African American) 91.9 ml/min; Est GFR (Non-African American) 79.3 ml/min
[2020-09-07 07:31] LABS: Albumin Globulin Ratio 0.7 (0.9-2); Bilirubin,Total 0.5 mg/dl (0.2-1); Globulin 3.9 gm/dl (2.5-4.0); Total Protein 6.8 gm/dl (6.4-8.2)
[2020-09-07 08:27] LABS: Potassium 4.3 mmol/L (3.5-5.1)
[2020-09-07] MEDS: TAMSULOSIN HCL 0.4 MG CAP PO SCH (08:31)
--- NOTE | 2020-09-07 08:43 | Discharge Summary ---
Date of Service September 07, 2020 Admission HPI Per Admitting Provider The patient is a 80-year-old male with a past medical history including kidney stones, left total hip arthroplasty, atrial fibrillation, lung mass, pulmonary embolism, venous insufficiency, left pulmonary nodule, UTI, GERD, BPH with LUTS, arthritis and allergic rhinitis. He presents with symptoms as noted above. He reports that he has had 4 episodes of kidney stones, with most recent being more than 10 years ago. He does follow with urology Dr. Spencer. Work-up in the emergency department included a CT scan of abdomen and pelvis which was significant for the followin mm distal left ureteral stone near th e UVJ. There was stable liver masses and pancreatic body lesion, and stable splenules in the left upper quadrant. Admission Exam Per Admitting Provider The patient is awake, alert and oriented 3, well developed and well nourished, normocephalic and atraumatic, lying in bed and in no acute distress. HEENT--PERRL, EOMI, mucous membranes and oropharynx dry. Neck--supple. No JVD. No bruits. Thyroid normal, trachea midline, no adenopathy. Heart--normal S1 and S2. No murmurs, rubs or gallops. Lungs--clear bilaterally, no respiratory distress, no accessory muscle use. Abdomen--normal bowel sounds and soft. Nontender. Nondistended, no hernias or masses, no organomegaly. Extremities--no cyanosis or clubbing. No edema. There are good distal pulses b/l. Dermatologic--normal skin turgor, normal color, no abnormal lymph nodes, no rash. Neurologic--cranial nerves II through XII grossly intact. Rheumatologic--normal range of motion. Psychiatric--normal affect. Principal Diagnosis Obstructing left ureteral calculus Discharge Exam General: Alert, oriented. No acute distress Skin: No noted rashes or bruises Psych: Appropriate mood and affect Neuro: No gross deficits HEENT: NC/AT Chest: Nontender to palpation. CV: RRR, Normal s1, s2. Resp: Breath sounds clear bilaterally, no increased effort of breathing. Abdomen: Soft, nontender, nondistended. Extremities: No edema in lower extremities bilaterally. Discharge Data Allergies Allergy/AdvReac Type Severity Reaction Status Date / Time Bactrim Allergy Unknown RASH Verified 03/10/17 08:12 sulfamethoxazole Allergy Unknown RASH Verified 09/05/20 23:34 trimethoprim Allergy Unknown RASH Verified 09/05/20 23:34 Consultations 09/06/20 00:50 ED Decision to Admit Stat 09/06/20 03:57 Consult Urology Routine Procedures Performed Operation Date: 09/06/20 13:30 Actual Procedures p Cystoscopy; Left Ureteroscopy; Laser Lithotripsy; Left Ureteral Stent Placement(Left) - Lulu Argueta MD Ordered Studies 09/05/20 21:49 CT abd pelvis IV con only Urgent 09/06/20 FL retrograde includes kub Routine Hospital Course (1) Calculus of distal left ureter: 80yo male with PMHx of a fib, Hx of PE and recurrent calculi admitted with an obstructing left ureteral calculus. Calculus of distal left ureter 6 mm calculus of distal left ureter near the UVJ noted on CT. Underwent laser lithotripsy on 09/06/2020 with [facility]. Stent placed. Received Ceftriaxone 2g IV daily, discontinued on discharge. Tamsulosin 0.4 mg p.o. daily, discontinued on discharge. Dilaudid, toradol and tylenol for pain while hospitalized. At time of discharge, patient was pain free overnight and did not require pain medication. Followup with PCP and with Urology for stent removal. Lung and pancreas masses CT abdomen/pelvis 09/05/20: Liver: "There is a 56 mm central hepatic hypodense lesion containing a central calcification. This remains relatively similar to the preceding study. Also evident is a 17 mm right hepatic lobe hypodensity and 8 mm left hepatic lobe hypodensity. There is also a exophytic 34 mm left hepatic hypodense lesion containing a central calcification. Spleen: Multilobulated versus multiple splenules. There are rim calcific ations. Pancreas: There is a 9 mm cystic lesion within the pancreatic tail, statistically representing a side branch IPMN. This remain similar to the prior study." Followup outpatient with PCP. Pulmonary embolism: History of DVT/PE Reportedly 30 years ago postop Gastroesophageal reflux disease: Continue omeprazole/pantoprazole Allergic rhinitis: Continue azelastine nasal spray Total Time Total Time Spent Total Time Spent (In Minutes): See attending attestation Discharge Plan Discharge Items Patient Disposition: Home - Self-Care Reason For Visit: 7MM DISTAL LEFT URETERAL STONE Discharge Diagnosis: Obstructive L ureteral stone Activity: Per Instructions section Non-emergency contact: Primary Care Provider and Urologist Call non-emergency contact if: your symptoms worsen, your pain is worsening and you have a fever Follow-up/Referrals: [facility] [Provider Group] Amanda Spencer CRNP [Primary Care Provider] - Lulu Argueta MD [[place]] - Diet: Regular Addtl Attending Provider Instructions: Mr. Edge, you came in with a lot of pain related to a kidney stone. You have since had surgery to remove that kidney stone and the urologist placed a stent in your kidney. That stent has to be removed eventually and they ask that you follow up with their office ([facility]) to have that done. Please followup as requested with [facility] and also with your primary care provider. Your pain has gone away completely today. However, if it should return you can take over the counter ibuprofen or Tylenol to help. If that does not help, we ask that you follow up with your primary care provider for further evaluation. Please return to the emergency room if you develop a fever or your symptoms return and are worsening. It was a pleasure taking care of you during your stay here! Pending Studies at Discharge: No Stand-Alone Forms: [facility], Smoking Cessation Medications and DC Order Prescriptions: Continued sildenafil (pulm.hypertension) 20 mg tablet 20 mg PO DAILY PRN (Reason: sexual activity) Qty: 90 RF: 3 omeprazole 20 mg capsule,delayed release(DR/EC) 20 mg PO QAM RF: 0 cyanocobalamin (vitamin B-12) 500 mcg tablet 500 mcg PO QAM RF: 0 azelastine 0.15 % (205.5 mcg) spray,non-aerosol 2 spray INTRANASAL BID PRN (Reason: Nasal Congestion) Qty: 30 RF: 11 triamcinolone acetonide 0.1 % Cream 1 applic TOPICAL UD PRN (Reason: Rash) RF: 0 metoprolol succinate 25 mg tablet extended release 24 hr 25 mg PO HS RF: 0 cholecalciferol (vitamin D3) [Vitamin D3] 125 mcg (5,000 unit) Tablet 125 mcg PO DAILY RF: 0 Discharge Orders: Discharge Order (Routine); Ordered 09/07/20 Ordered By: Kaylie Villafana/Other Patient Handouts: Cystoscopy Admission Data Admit Date/Time: 09/06/20 01:40 Attending Provider: Stefani May Admit Provider: Agusto Bob Primary Care Provider: Amanda Spencer Other Providers: Agusto Bob ; Delta Spencer Other Interventions: Discharge Summary Assessment (RN) Last Done: 09/07/20 09:00 Supervising Physician Co-Signing Physician Notes Resident Physician Supervision Note: I independently interviewed and examined the patient and verified the hernandez history and physical, reviewed labs and image studies and agree with resident Dr. Penaloza findings and care plan. Resident Activity Tracking Resident Involvement: Resident Care Provided Care Provided: Adult [facility] Medicine
[2020-09-07] MEDS: ACETAMINOPHEN 325 MG TAB PO PRN (11:34)
[2020-09-11 18:33] LABS: Component 2 DNR; Source URETER STONE
== END 2020-09-07 14:42 | disposition home or self-care (01) ==
LOC: ED 21:39 → INTOOBSV 09-06 01:40 → SUATTDRO 09-06 01:40 → 3W 09-06 01:40

== ENCOUNTER 2022-02-03 09:26 | Observation (INO) ==
[2022-02-03] MEDS ORDERED: ONDANSETRON INJ 2 MG/ML 2 ML VIAL IV STA (10:20)
[2022-02-03] MEDS ORDERED: ACETAMINOPHEN 1,000 MG/100 ML VIAL IV STA (10:20)
[2022-02-03] MEDS: SODIUM CHLORIDE 0.9% 1000ML 1,000 ML IV SCH ×2 (11:03→19:39)
[2022-02-03 11:23] LABS: Basophils # (auto) 0.02 K/uL (0-0.2); Basophils % (auto) 0.2 %; Eosinophils # (auto) 0.02 K/uL (0-0.50); Eosinophils % (auto) 0.2 %; Hematocrit (blood only) 51.5 % (40.1-51.0); Hemoglobin 17.2 g/dl (14.0-18.0); Immature Granulocytes # (auto) 0.03 K/uL (0.00-0.02); Immature Granulocytes % (auto) 0.3 %; Lymphocytes # (auto) 1.31 K/uL (1.2-3.4); Mean Corpuscular Hemoglobin 29.5 pg (25.0-34.0); Mean Corpuscular Hgb Conc 33.4 g/dL (32.0-36.0); Mean Corpuscular Volume 88.3 fL (80.0-100.0); Mean Platelet Volume 10.3 fL (9.4-12.4); Monocytes # (auto) 1.19 K/uL (0.24-0.82); Monocytes % (auto) 10.9 %; Neutrophils # (auto) 8.37 K/uL (1.4-6.5); Neutrophils % (auto) 76.4 %; Platelet Count 273 K/uL (130-400); RDW Coefficient of Variation 14.7 % (11.5-14.5); RDW Standard Deviation 46.5 fL (36.4-46.3); Red Blood Count 5.83 M/uL (4.63-6.08); White Blood Count 10.94 K/ul (4.8-10.8)
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
[2022-02-03 11:39] LABS: INR 1.1 (0.9-1.1); Prothrombin Time 11.5 Seconds (9.0-12.0)
[2022-02-03 11:46] LABS: Albumin Globulin Ratio 1.2 (0.9-2); Albumin Level 3.8 gm/dl (3.4-5.0); BUN Creatinine Ratio 15.5 (10-20); Calcium 9.4 mg/dl (8.5-10.1); Est GFR (African American) 83.3 ml/min; Est GFR (Non-African American) 71.9 ml/min; Globulin 3.3 gm/dl (2.5-4.0); Magnesium 1.9 mg/dl (1.7-2.4); Potassium 4.2 mmol/L (3.5-5.1); Total Protein 7.1 gm/dl (6.0-8.3)
[2022-02-03 11:50] LABS: Troponin I High Sensitivity 5.7 pg/ml (0-20)
[2022-02-03] MEDS ORDERED: OPTIRAY 350 100ml IV ONE (12:48)
--- NOTE | 2022-02-03 13:22 | CT Scan Report ---
ABDOMEN AND PELVIS CT WITH IV CONTRAST CT DOSE: 1085.45 mGy.cm HISTORY: Generalized abd pain, n/v/d TECHNIQUE: Multiaxial CT images of the abdomen and pelvis were performed following the use of intrave nous contrast. A dose lowering technique was utilized adhering to the principles of ALARA. COMPARISON STUDY: Abdomen and pelvis CT 09/05/2020. FINDINGS: Mild interstitial thickening at the lung bases which is likely chronic. No pneumoperitoneum . No pneumatosis. No fractures within the visualized osseous structures. There is a left total hip ar throplasty. There is a stable 3 mm stone within the left kidney. No right renal calculi. No ureteral calculi. No hydronephrosis. The bladder is unremarkable. The prostate gland remains mildly enlarged. No pelvic free fluid. No retroperitoneal or pelvic lymphadenopathy. Mild calcified plaque within the normal caliber abdominal aorta. The main portal vein is patent. Multiple bilateral renal cysts are ag ain noted. Stable partially calcified hypodense lesions within the liver. Dominant hypodense lesion a t the hepatic dome measures 5.6 cm. The gallbladder is unremarkable. Stable 9 mm hypodense lesion at the pancreatic tail. This favors a side branch intraductal papillary mucinous neoplasm. Lobular parti ally calcified splenic and noted. Evidence for prior midline abdominal incision. Colonic diverticulos is. No evidence for acute diverticulitis. Normal appendix. Multiple mildly dilated gas and fluid-fill ed loops of mid to distal small bowel. The distal ileal loops are decompressed. Possible transition p oint within the right lower quadrant on image 265. Therefore, these findings favor a partial small [place] obstruction. Tiny fat-containing umbilical hernia is noted. IMPRESSION: 1. Multiple mildly dilated gas and fluid-filled loops of mid to distal small bowel with a possible t ransition point within the right lower quadrant. Therefore, these findings favor a partial small ro[place] l obstruction.. 2. Left-sided nephrolithiasis. No hydronephrosis. 3. Colonic diverticulosis. No evidence for acute diverticulitis. 4. Additional findings as described above. ACT 112: Negative or not required by law. Electronically signed by: Emir Velazquez M.D. 02/03/2022 1:21 PM
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
[2022-02-03] MEDS ORDERED: METOPROLOL TARTRATE 1 MG/ML VIAL IV ONE ×2 (14:20→16:26)
[2022-02-03 15:21] LABS: Appearance Urine Clear (Clear); Bacteria Urine Automated Negative (Negative); Bilirubin Urine Negative (Negative); Blood Urine Trace (Negative); Color Urine Dark Yellow; Glucose Urine UA Negative (Negative); Ketones Urine 2+ (Negative); Leukocyte Esterase Urine Negative (Negative); Nitrite Urine Negative (Negative); Protein Urine Negative (Negative); RBC Urine Automated 0-4 /hpf (0-4); Specific Gravity Urine > 1.045 (1.000-1.030); Urobilinogen Urine Negative (Negative)
--- NOTE | 2022-02-03 16:56 | Electrocardiogram Report ---
Test Reason : Blood Pressure : / mmHG Vent. 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
--- NOTE | 2022-02-03 18:38 | Ultrasound Report ---
BILATERAL LOWER EXTREMITY VENOUS DOPPLER CLINICAL HISTORY: leg swelling, recent car trip, hx recurrent dvt COMPARISON STUDY: Left lower extremity venous Doppler ultrasound May 10, 2019. Bilateral lower extremity venous Doppler ultrasound December 10, 2015. TECHNIQUE: Sonography of the deep venous system of the bilateral lower extremities was performed. Co mpression and augmentation were evaluated. FINDINGS: The bilateral common femoral, superficial femoral and popliteal veins were compressible. A ugmentation was normal. Flow was shown within the deep calf vessels. There is thrombus within the rig ht greater saphenous vein extending from the mid to proximal calf for approximately 14 cm. Thrombus i s also noted within portions of the left ureter saphenous vein, including within the thigh, popliteal fossa and calf. Thrombus was shown within this vessel on ultrasound of May 10, 2019. IMPRESSION: 1. No evidence of deep venous thrombus within the bilateral lower extremities. 2. Age indeterminate superficial thrombus within the bilateral greater saphenous veins, as described above. ACT 112: Negative or not required by law. Electronically signed by: Peter Smith M.D. 02/03/2022 6:36 PM
[2022-02-03] MEDS: METOPROLOL TARTRATE 1 MG/ML VIAL IV SCH (19:52)
[2022-02-03] MEDS: ENOXAPARIN INJ 60 MG/0.6 ML SYR SQ SCH (21:23)
[2022-02-04] MEDS: SODIUM CHLORIDE 0.65% NA SOLN 45 ML (OCEAN) PRN (02:42)
[2022-02-04] MEDS: METOPROLOL TARTRATE 1 MG/ML VIAL IV SCH ×4 (02:47→20:50)
[2022-02-04] MEDS: SODIUM CHLORIDE 0.9% 1000ML 1,000 ML IV SCH ×2 (03:43→12:06)
[2022-02-04] MEDS: ENOXAPARIN INJ 60 MG/0.6 ML SYR SQ SCH ×2 (09:30→20:42)
[2022-02-04 10:15] LABS: Basophils # (auto) 0.02 K/uL (0-0.2); Basophils % (auto) 0.3 %; Eosinophils # (auto) 0.05 K/uL (0-0.50); Eosinophils % (auto) 0.8 %; Hematocrit (blood only) 47.9 % (40.1-51.0); Hemoglobin 15.8 g/dl (14.0-18.0); Immature Granulocytes # (auto) 0.01 K/uL (0.00-0.02); Immature Granulocytes % (auto) 0.2 %; Lymphocytes # (auto) 1.33 K/uL (1.2-3.4); Lymphocytes % (auto) 20.2 %; Mean Corpuscular Hemoglobin 29.7 pg (25.0-34.0); Monocytes # (auto) 0.63 K/uL (0.24-0.82); Monocytes % (auto) 9.6 %; Neutrophils # (auto) 4.55 K/uL (1.4-6.5); Neutrophils % (auto) 68.9 %; Platelet Count 267 K/uL (130-400); RDW Coefficient of Variation 14.6 % (11.5-14.5); RDW Standard Deviation 47.9 fL (36.4-46.3); Red Blood Count 5.32 M/uL (4.63-6.08); White Blood Count 6.59 K/ul (4.8-10.8)
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
[2022-02-04 12:12] LABS: BUN Creatinine Ratio 17.7 (10-20); Est GFR (African American) 96.2 ml/min; Potassium 4.3 mmol/L (3.5-5.1)
[2022-02-04] MEDS ORDERED: LACTATED RINGER'S 500 ML IV ONE (13:16)
--- NOTE | 2022-02-04 14:54 | XRay Report ---
KUB CLINICAL HISTORY: Follow-up small bowel obstruction. FINDINGS: 4 AP, portable, supine abdominal radiographs are compared to study dated 03/13/2021 and cor related with abdominal CT dated 02/03/2022. There is persistent small bowel obstruction. Small bowel l oops measure up to 5 cm in diameter. No evidence of intraperitoneal free air is seen on these supine images. A large hepatic calcification is unchanged. Phleboliths are noted in the pelvis. The lung bas es are clear as imaged. The skeletal structures are osteopenic and appear intact. There is lumbosacra l spondylosis. A left hip arthroplasty is in place. IMPRESSION: Persistent small bowel obstruction. Electronically signed by: Behzad Parmar M.D. 02/04/2022 2:53 PM
--- NOTE | 2022-02-04 18:04 | Hospitalist Progress Note ---
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 no further N/V, but still quite distended and KUB today with ongoing obstructive pattern. gen surg consulted - appreciate their assistance. cont NPO status, IV fluids, etc. during the day today the patient's UOP was sluggish - gave additional LR bolus of 500cc and changed IV fluids to LR at 125cc/hr. repeat labs am. (2) Occlusion of saphenous vein: Plan: b/l LE dopplers were obtained by admitting physician yesterday. this appeared to show b/l greater saphenous vein thromboses. I spoke with radiology - the segments of apparent thromboses are long, with the right being ~14cm, and the left likely 20cm or longer. I spoke with Dr Hdz from cardiology who had previously performed varicose vein treatments on his b/l saphenous veins; right in 2016, left in 2018/early 2019. Dr Hdz compared his duplex studies from after his varicose vein treatments to the duplex studies from yesterday. The images are quite similar thus the findings are chronic and likely due to his previous varicose vein radiofrequency and adhesive closure rather than acute thrombosis. No systemic anticoagulation is needed. (3) History of atrial fibrillation: Plan: noted he is not on chronic anticoagulation any longer he takes metoprolol succinate daily; currently on IV metoprolol due to NPO status cont telemetry monitoring (4) Epistaxis: Plan: previous h/o due to anticoagulation no current nose bleeding and he is not on systemic anticoagulation any longer at home (5) 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 (6) History of DVT (deep vein thrombosis): Plan: multiple episodes (7) History of pulmonary embolus (PE): Plan: one event prior (8) HTN (hypertension): Plan: controlled with IV lopressor (9) Hypoglycemia: Plan: 2nd to fasting state BSG also low D5 added to IV fluids follow BSGs/glucose levels carefully Plan appreciate gen surg support appreciate input from Dr Hdz Admission and Anticipated Discharge Date Admission Date: February 03, 2022 Subjective patient remains distended and bloated but denies nausea or any further vomiting he is passing flatus he had a stool in the ER while awaiting admission but none since he is ambulating telemetry since admission wnl with respect to his possible b/l saphenous vein thrombosis - he reports that Dr Hdz performed varicose vein therapy on his saphenous veins several years ago he denies any pain in either leg denies swelling he did take a car trip to [place] last week -- drove to/from there Review of Systems Review of Systems: gen - no fever cv - no chest pain pulm - no dyspnea GI - no pain Physical Exam Physical Exam: gen - NAD, pleasant mouth - MM pasty neck - no JVD heart - RRR, s1 s2, no murmur lungs - CTA b/l abd - very distended, but nontender, BS+ but diminished, tympanic to percussion ext - trace edema b/l, pulses 2+ b/l vasc - numerous varicosities present b/l legs; no palpable cords; no heat or warmth; no areas of tenderness Results & Data Results & Data ([facility]) Vital Signs (Past 12 Hours) Vital Signs Temp Pulse Pulse Pulse Resp BP BP 02/04/22 15:36 78 144/74 H 02/04/22 15:32 78 144/74 H 02/04/22 12:02 36.8 C 69 20 136/72 02/04/22 09:27 76 135/79 02/04/22 08:10 36.9 C 79 20 134/74 Pulse Ox O2 Del Method 02/04/22 15:36 02/04/22 15:32 02/04/22 12:02 95 Room Air 02/04/22 09:27 02/04/22 08:10 93 Room Air Laboratory Results Laboratory Results - last 24 hr 02/04/22 02/04/22 02/04/22 09:34 09:34 11:25 WBC 6.59 RBC 5.32 Hgb 15.8 Hct 47.9 MCV 90.0 MCH 29.7 MCHC 33.0 RDW Std Deviation 47.9 H RDW Coeff of Abdi 14.6 H Plt Count 267 MPV 11.0 Immature Gran % (Auto) 0.2 Neut % (Auto) 68.9 Lymph % (Auto) 20.2 [place] % (Auto) 9.6 Eos % (Auto) 0.8 Baso % (Auto) 0.3 Neut # (Auto) 4.55 Lymph # (Auto) 1.33 [place] # (Auto) 0.63 Eos # (Auto) 0.05 Baso # (Auto) 0.02 Immature Gran # (Auto) 0.01 Sodium Cancelled 139 Potassium Cancelled 4.3 Chloride Cancelled 108 H Carbon Dioxide Cancelled 25 Anion Gap Cancelled 6 BUN Cancelled 14 Creatinine Cancelled 0.79 Est Cr Clr Drug Dosing Cancelled 83.0 Est GFR ( Amer) Cancelled 96.2 Est GFR (Non-Af Amer) Cancelled 83.0 BUN/Creatinine Ratio Cancelled 17.7 Glucose Cancelled 69 L Calcium Cancelled 9.0 Diagnostic Findings KUB X-Ray 02/04/22 07:00 KUB CLINICAL HISTORY: Follow-up small bowel obstruction. FINDINGS: 4 AP, portable, supine abdominal radiographs are compared to study dated 03/13/2021 and correlated with abdominal CT dated 02/03/2022. There is persistent small bowel obstruction. Small bowel loops measure up to 5 cm in diameter. No evidence of intraperitoneal free air is seen on these supine images. A large hepatic calcification is unchanged. Phleboliths are noted in the pelvis. The lung bases are clear as imaged. The skeletal structures are osteopenic and appear intact. There is lumbosacral spondylosis. A left hip arthroplasty is in place. IMPRESSION: Persistent small bowel obstruction. Electronically signed by: Behzad Parmar M.D. 02/04/2022 2:53 PM PG Care Time/CCT Total # of Minutes Spent Total Time Spent with Patient: Total time spent is greater than 50% in coordination of care (as documented) at patient's floor/unit and/or counseling patient: Coding Level of Care Code 87909 Subseq Hosp Care Lvl 3 Diagnoses SBO (small bowel obstruction) K56.609 Occlusion of saphenous vein I82.819 History of atrial fibrillation Z86.79 Epistaxis R04.0 S/P total hip arthroplasty Z96.649 History of DVT (deep vein thrombosis) Z86.718 History of pulmonary embolus (PE) Z86.711 HTN (hypertension) I10 Hypoglycemia E16.2
[2022-02-04] MEDS: D5W AND LACTATED RINGERS 1,000 ML IV SCH (20:42)
[2022-02-04] MEDS ORDERED: MoRPHine SULFATE 2 MG/ML CARP IV STA (22:27)
[2022-02-05] MEDS: METOPROLOL TARTRATE 1 MG/ML VIAL IV SCH ×3 (02:06→09:25)
[2022-02-05] MEDS: D5W AND LACTATED RINGERS 1,000 ML IV SCH ×2 (04:39→13:54)
--- NOTE | 2022-02-05 07:04 | Surgery Progress Note ---
Date of Service February 05, 2022 Assessment & Plan (1) SBO (small bowel obstruction): Plan: Seems he has a return of bowel function Will trial clear liquids, if he tolerates this he can have his diet advanced for lunch He continues to tolerate diet and have return of bowel function without abdominal pain he can be discharged Will follow Admission and Anticipated Discharge Date Admission Date: February 03, 2022 Subjective Patient seen and examined. Denies any abdominal pain. Had a large bowel movement last night. He states he continues to pass flatus. Denies any nausea or vomiting. Afebrile. Review of Systems Constitutional: no fever and no chills Physical Exam Constitutional: WD/WN, vitals as above Gastrointestinal (Abdomen): Inspection/Auscultation: abdomen normal to inspection; abdomen not distended Percussion/Palpation: abdomen soft; abdomen nontender, no guarding, abdomen not rigid and no hernia Results & Data ([facility]) Vital Signs (Past 12 Hours) Vital Signs Temp Pulse Pulse Resp BP Pulse Ox O2 Del Method 02/05/22 02:06 74 02/05/22 02:03 36.8 C 70 14 129/68 94 Room Air 02/04/22 23:09 73 02/04/22 22:50 36.5 C 71 18 135/73 95 Room Air 02/04/22 19:51 36.5 C 77 16 139/73 93 Room Air PG Care Time/CCT Total # of Minutes Spent Total Time Spent with Patient: Total time spent is greater than 50% in coordination of care (as documented) at patient's floor/unit and/or counseling patient: Coding Level of Care Code 64483 Subseq Hosp Care Lvl 1 Diagnoses SBO (small bowel obstruction) K56.609
[2022-02-05] MEDS: ENOXAPARIN INJ 60 MG/0.6 ML SYR SQ SCH ×2 (08:11→20:48)
[2022-02-05] MEDS: SODIUM CHLORIDE 0.65% NA SOLN 45 ML (OCEAN) PRN (08:12)
[2022-02-05] MEDS ORDERED: METOPROLOL SUCC 25MG EXT REL TAB PO SCH (09:00)
[2022-02-05] MEDS: PANTOprazole 40 MG TAB PO SCH (09:44)
[2022-02-05 09:45] LABS: BUN Creatinine Ratio 14.5 (10-20); Est GFR (African American) 101.8 ml/min; Est GFR (Non-African American) 87.8 ml/min; Magnesium 1.7 mg/dl (1.7-2.4); Potassium 3.8 mmol/L (3.5-5.1)
[2022-02-05] MEDS: GABAPENTIN 400 MG CAP PO SCH ×3 (09:45→20:48)
[2022-02-05] MEDS ORDERED: METOPROLOL TARTRATE 25 MG TAB PO STA (13:48)
[2022-02-05] MEDS ORDERED: ACETAMINOPHEN 500 MG TAB PO PRN (13:49)
[2022-02-05] MEDS ORDERED: POTASSIUM CHLORIDE CRTAB 20 MEQ TABCR PO STA (13:49)
--- NOTE | 2022-02-05 13:50 | Hospitalist Progress Note ---
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 SBO clinically resolved. passing flatus/stool. tolerating diet. gen surg consult appreciated. can stop IV fluids. (2) Occlusion of saphenous vein: Plan: b/l LE dopplers were obtained by admitting physician. this appeared to show b/l greater saphenous vein thromboses. I spoke with radiology - the segments of apparent thromboses are long, with the right being ~14cm, and the left likely 20cm or longer. I spoke with Dr Hdz from cardiology who had previously performed varicose vein treatments on his b/l saphenous veins; right in 2016, left in 2018/early 2019. Dr Hdz compared his duplex studies from after his varicose vein treatments to the duplex studies from this admission. The images are quite similar thus the findings are chronic and likely due to his previous varicose vein radiofrequency and adhesive closure rather than acute thrombosis. No systemic anticoagulation is needed specifically for these findings. (3) History of atrial fibrillation: Plan: patient with 7 minute long episode of PAF this am during the PAF run his rate control was poor with rates 120s or higher at rest he had associated palpitations will increase metoprolol succinate to 25mg BID I corresponded with Lluvia Saldana NP, who works with Dr Villeda last echo was 2017 with EF 65%, mild pulm HTN, no valvular pathology they will see him shortly after discharge for this and repeat his echo then will monitor overnight on telemetry CHADs-VASC score is at least 2, likely 3 (age + HTN history) even with score of 2 anticoagulation is recommended will discuss with him (4) Epistaxis: Plan: previous h/o due to anticoagulation (5) 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 (6) History of DVT (deep vein thrombosis): Plan: multiple episodes (7) History of pulmonary embolus (PE): Plan: one event prior (8) HTN (hypertension): Plan: controlled with toprol xl (9) Hypoglycemia: Plan: 2nd to fasting state resolved Plan appreciate gen surg support appreciate input from Dr Hdz appreciate information from [facility] updated at bedside monitor overnight Admission and Anticipated Discharge Date Admission Date: February 03, 2022 Subjective had large bowel movement overnight tolerating diet - surgery advanced to low fiber and he tolerated such no nausea/emesis passing plenty of flatus on monitors this am he had about 7 minutes of what appears to be rapid a.fib with rates in the 130s he was resting in bed when he had the PAF states he had palpitations from such he has had PAF in the past he follows with [facility] - Dr Carlos Villeda Review of Systems Review of Systems: gen - feels good cv - no chest pain, no orthopnea pulm - no dyspnea or [facility] GI - mild bloating but no pain; no nausea; no vomiting Physical Exam Physical Exam: gen - NAD, pleasant, looks good today mouth - MMM neck - no JVD heart - RRR, s1 s2, no murmur (I saw him shortly after his PAF run resolved) lungs - CTA b/l abd - distension improved; nontender, BS+ ext - trace edema b/l, pulses 2+ b/l vasc - numerous varicosities present b/l legs; no palpable cords; no heat or warmth; no areas of tenderness Results & Data Results & Data ([facility]) Vital Signs (Past 12 Hours) Vital Signs Temp Pulse Pulse Resp BP Pulse Ox O2 Del Method 02/05/22 13:28 85 153/73 H 02/05/22 11:22 37.2 C 68 17 135/80 91 Room Air 02/05/22 10:21 88 02/05/22 07:54 36.9 C 79 17 153/84 H 93 Room Air 02/05/22 02:06 74 02/05/22 02:03 36.8 C 70 14 129/68 94 Room Air Laboratory Results Laboratory Results - last 24 hr 02/04/22 02/04/22 02/04/22 20:23 20:23 22:51 Sodium Potassium Chloride Carbon Dioxide Anion Gap BUN Creatinine Est Cr Clr Drug Dosing Est GFR ( Amer) Est GFR (Non-Af Amer) BUN/Creatinine Ratio Glucose POC Glucose 65 L* 71 82 Calcium Magnesium 02/05/22 07:48 Sodium 139 Potassium 3.8 Chloride 107 Carbon Dioxide 25 Anion Gap 7 BUN 10 Creatinine 0.69 Est Cr Clr Drug Dosing 95.0 Est GFR ( Amer) 101.8 Est GFR (Non-Af Amer) 87.8 BUN/Creatinine Ratio 14.5 Glucose 121 H POC Glucose Calcium 9.0 Magnesium 1.7 PG Care Time/CCT Total # of Minutes Spent Total Time Spent with Patient: Total time spent is greater than 50% in coordination of care (as documented) at patient's floor/unit and/or counseling patient: Coding Level of Care Code 68901 Subseq Hosp Care Lvl 3 Diagnoses SBO (small bowel obstruction) K56.609 Occlusion of saphenous vein I82.819 History of atrial fibrillation Z86.79 Epistaxis R04.0 S/P total hip arthroplasty Z96.649 History of DVT (deep vein thrombosis) Z86.718 History of pulmonary embolus (PE) Z86.711 HTN (hypertension) I10 Hypoglycemia E16.2
[2022-02-05] MEDS ORDERED: MAGNESIUM SULFATE / D5W 1 GM/100 ML BAG IV ONE (14:00)
[2022-02-05] MEDS: METOPROLOL SUCC 25MG EXT REL TAB PO SCH (20:48)
[2022-02-06 06:35] LABS: BUN Creatinine Ratio 13.6 (10-20); Calcium 9.1 mg/dl (8.5-10.1); Creatinine Clr Calc Pharmacy 81.2 ml/min; Est GFR (African American) 95.3 ml/min; Est GFR (Non-African American) 82.2 ml/min; Potassium 3.8 mmol/L (3.5-5.1)
[2022-02-06] MEDS: ENOXAPARIN INJ 60 MG/0.6 ML SYR SQ SCH ×2 (09:10→09:44)
[2022-02-06] MEDS: GABAPENTIN 400 MG CAP PO SCH ×2 (09:11→14:20)
[2022-02-06] MEDS: PANTOprazole 40 MG TAB PO SCH (09:11)
[2022-02-06] MEDS: METOPROLOL SUCC 25MG EXT REL TAB PO SCH (09:11)
--- NOTE | 2022-02-06 09:26 | Surgery Progress Note ---
Date of Service February 06, 2022 Assessment & Plan (1) SBO (small bowel obstruction): Plan: Patient here with SBO that is resolving He is passing gas and having BMs Tolerating a low fiber diet Stable for discharge to home today from our standpoint No need to f/u with us in clinic Pt seen/examined with Dr. Coffey Admission and Anticipated Discharge Date Admission Date: February 03, 2022 Subjective Patient reports feeling well. Having + bowel function. Tolerating a diet without nausea/vomiting. Physical Exam Physical Exam: awake/alert, no distress Gastrointestinal (Abdomen): Percussion/Palpation: abdomen soft; abdomen nontender Results & Data ([facility]) Vital Signs (Past 12 Hours) Vital Signs Temp Pulse Pulse Pulse Resp BP Pulse Ox 02/06/22 07:34 36.5 C 61 18 142/82 H 91 02/06/22 03:22 36.8 C 71 18 138/79 92 02/05/22 23:55 36.7 C 67 16 111/67 91 02/05/22 23:28 60 O2 Del Method 02/06/22 07:34 Room Air 02/06/22 03:22 Room Air 02/05/22 23:55 Room Air 02/05/22 23:28 PG Care Time/CCT Total # of Minutes Spent Total Time Spent with Patient: Total time spent is greater than 50% in coordination of care (as documented) at patient's floor/unit and/or counseling patient: Coding Level of Care Code 45888 Subseq Hosp Care Lvl 1 Diagnoses SBO (small bowel obstruction) K56.609
--- NOTE | 2022-02-06 12:33 | Discharge Summary ---
Date of Service date of admission - February 03, 2022 date of discharge - February 06, 2022 Admission HPI Per Admitting Provider Ciaran is an 81yo M who presents with 2 days of abdominal fullness and 2x episodes of nonbloody emesis with CT consistent with SBO. 2 days ago belly started feeling 'hard.' This morning was using the bathroom and all of a sudden just had 2 episodes of large volume ("at least a quart and a half") of nonbloody emesis totalling at least 3 quarts of vomit. Didn't have nausea, but felt very full just before vomiting. Has had 3 prior SBOs all resolved medically. 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 Patel History of recurrent vasovagal syncope from the site of blood and pain. Happened postop with his hip as well (multiple code purples when being sat up in pain in the past) Last colonoscopy: 2008 w/ Dr. Palma. Normal at that time Last EGD w Dr Scherer 2015 for GERD, normal per pt Did recently have a long car trip. Has had 3 episodes of DVTs. Notes that he has some bilateral leg swelling, no asymmetry and no pain or shortness of breath. No chest pain/chest pressure. Notes he did stop every hour to stretch and walk. Principal Diagnosis 1. pSBO 2. paroxysmal atrial fibrillation (vs flutter) 3. abnormal LE venous dopplers Discharge Exam gen - NAD, pleasant, looks good today mouth - MMM neck - no JVD heart - RRR, s1 s2, no murmur lungs - CTA b/l abd - distension resolved; BS+, NT, soft ext - trace edema b/l, pulses 2+ b/l vasc - numerous varicosities present b/l legs; no palpable cords; no heat or warmth; no areas of tenderness Discharge Data Allergies Allergy/AdvReac Type Severity Reaction Status Date / Time Bactrim Allergy Unknown RASH Verified 03/10/17 08:12 oxycodone Allergy Unknown Dizziness Verified 02/03/22 15:49 sulfamethoxazole Allergy Unknown RASH Verified 02/03/22 15:49 trimethoprim Allergy Unknown RASH Verified 02/03/22 15:49 Consultations [facility] General Surgery Ordered Studies Abdomen/Pelvis CT 02/03/22 11:[address] WITH IV CONTRAST CT DOSE: 1085.45 mGy.cm HISTORY: Generalized abd pain, n/v/d TECHNIQUE: Multiaxial CT images of the abdomen and pelvis were performed following the use of intravenous contrast. A dose lowering technique was utilized adhering to the principles of ALARA. COMPARISON STUDY: Abdomen and pelvis CT 09/05/2020. FINDINGS: Mild interstitial thickening at the lung bases which is likely chronic. No pneumoperitoneum. No pneumatosis. No fractures within the visualized osseous structures. There is a left total hip arthroplasty. There is a stable 3 mm stone within the left kidney. No right renal calculi. No ureteral calculi. No hydronephrosis. The bladder is unremarkable. The prostate gland remains mildly enlarged. No pelvic free fluid. No retroperitoneal or pelvic lymphadenopathy. Mild calcified plaque within the normal caliber abdominal aorta. The main portal vein is patent. Multiple bilateral renal cysts are again noted. Stable partially calcified hypodense lesions within the liver. Dominant hypodense lesion at the hepatic dome measures 5.6 cm. The gallbladder is unremarkable. Stable 9 mm hypodense lesion at the pancreatic tail. This favors a side branch intraductal papillary mucinous neoplasm. Lobular partially calcified splenic and noted. Evidence for prior midline abdominal incision. Colonic diverticulosis. No evidence for acute diverticulitis. Normal appendix. Multiple mildly dilated gas and fluid-filled loops of mid to distal small bowel. The distal ileal loops are decompressed. Possible transition point within the right lower quadrant on image 265. Therefore, these findings favor a partial small bowel obstruction. Tiny fat-containing umbilical hernia is noted. IMPRESSION: 1. Multiple mildly dilated gas and fluid-filled loops of mid to distal small bowel with a possible transition point within the right lower quadrant. Therefore, these findings favor a partial small bowel obstruction.. 2. Left-sided nephrolithiasis. No hydronephrosis. 3. Colonic diverticulosis. No evidence for acute diverticulitis. 4. Additional findings as described above. ACT 112: Negative or not required by law. Electronically signed by: mEir Velazquez M.D. 02/03/2022 1:21 PM Venous Doppler Study 02/03/22 14:31 BILATERAL LOWER EXTREMITY VENOUS DOPPLER CLINICAL HISTORY: leg swelling, recent car trip, hx recurrent dvt COMPARISON STUDY: Left lower extremity venous Doppler ultrasound May 10, 2019. Bilateral lower extremity venous Doppler ultrasound December 10, 2015. TECHNIQUE: Sonography of the deep venous system of the bilateral lower extremities was performed. Compression and augmentation were evaluated. FINDINGS: The bilateral common femoral, superficial femoral and popliteal veins were compressible. Augmentation was normal. Flow was shown within the deep calf vessels. There is thrombus within the right greater saphenous vein extending from the mid to proximal calf for approximately 14 cm. Thrombus is also noted within portions of the left ureter saphenous vein, including within the thigh, popliteal fossa and calf. Thrombus was shown within this vessel on ultrasound of May 10, 2019. IMPRESSION: 1. No evidence of deep venous thrombus within the bilateral lower extremities. 2. Age indeterminate superficial thrombus within the bilateral greater saphenous veins, as described above. ACT 112: Negative or not required by law. Electronically signed by: Peter Smith M.D. 02/03/2022 6:36 PM KUB X-Ray 02/04/22 07:00 KUB CLINICAL HISTORY: Follow-up small bowel obstruction. FINDINGS: 4 AP, portable, supine abdominal radiographs are compared to study dated 03/13/2021 and correlated with abdominal CT dated 02/03/2022. There is persistent small bowel obstruction. Small bowel loops measure up to 5 cm in diameter. No evidence of intraperitoneal free air is seen on these supine images. A large hepatic calcification is unchanged. Phleboliths are noted in the pelvis. The lung bases are clear as imaged. The skeletal structures are osteopenic and appear intact. There is lumbosacral spondylosis. A left hip arthroplasty is in place. IMPRESSION: Persistent small bowel obstruction. Electronically signed by: Behzad Parmar M.D. 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 SBO clinically resolved with conservative measures including IV fluids & bowel rest. He never required NG tube decompression. He began to pass flatus & stools, diet was resumed, and this was advanced without difficulty to low fiber diet. [facility] General Surgery saw him in consult, and they provided hernandez recommendations for his care. He will follow a low fiber diet for at least 1 week post-discharge. (2) Occlusion of saphenous vein: b/l LE dopplers were obtained by admitting physician due to mild LE edema and recent prolonged travel via car. This appeared to show b/l greater saphenous vein thromboses. The segments of apparent thromboses were long, with the right being ~14cm, and the left likely 20cm or longer. I spoke with Dr Edmund Hdz from cardiology who had previously performed varicose vein treatments on his b/l saphenous veins; right in 2016, left in 2018/early 2019. Dr Hdz compared his duplex studies from after his varicose vein treatments to the duplex studies from this admission. The images were quite similar thus the findings are chronic and likely due to his previous varicose vein radiofrequency and adhesive closure rather than acute thrombosis. No systemic anticoagulation advised specifically for these findings. (3) History of atrial fibrillation: Patient has known h/o PAF. He follows with Dr Carlos Villeda, [facility]. During his stay he had a 7 minute long episode of PAF (with some ?aflutter as well). Throughout the PAF run his rate control was poor with rates 120s or higher at rest. He had associated palpitations as well. After the arrhythmia resolved his metoprolol succinate was increased to 25mg BID (from once daily dosing). He was observed for an additional 24 hours after the PAF episode. He had very brief (<20 seconds) episodes of possible PAF leading up to discharge. Last echo was 2017 with EF 65%, mild pulm HTN, no valvular pathology. CHADs-VASC score is at least 2, likely 3 (age + HTN history). Regardless of score ideally he should be on anticoagulation. We investigated the cost of Eliquis and monthly miles will be just shy of $50. He was very reluctant to start anticoagulation while here. He will continue to think about anticoagulation and discuss it further with Dr Villeda. I corresponded with [facility] and they will see him shortly after discharge for the PAF and repeat his echo in the office. 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 Small Bowel Obstruction ("SBO") - resolved 2. Episode of atrial fibrillation Activity: Resume your previous activity Non-emergency contact: Primary Care Provider and [employer] Call non-emergency contact if: you have any medication questions and your symptoms worsen Follow-up/Referrals: Carlos Villeda DO [Physician] - 02/09/22 2:40 pm (see Dr Villeda or his [employer], Lluvia Saldana, within 1 week - for a.fib ) Amanda Spencer CRNP [Primary Care Provider] - 02/16/22 10:50 am (see Ms Spencer within 1 week with Lucian) Diet: Low Fiber Addtl Attending Provider Instructions: Mr Edge, You were admitted to the hospital for small bowel obstruction. The leading cause of small bowel obstruction is adhesions. Adhesions are scar tissue, typically from prior intra-abdominal surgery. Your bowel blockage/obstruction resolved with conservative measures including bowel rest, IV fluids, and time. The general surgeons followed along and made recommendations for your care. At time of discharge you are moving your bowels and tolerating a low-fiber diet. In addition, you had a 7-8 minute long episode of what appeared to be atrial fibrillation (a.fib). You have had a.fib in the past. We increased your metoprolol succinate medication from 25mg daily to 25mg twice daily. Ideally you should resume taking blood thinners again because a.fib is a risk factor for stroke. Dr Villeda and/or Ms Saldana will talk to you in more detail about this. Blood thinners will thin your blood to prevent blood clot formation in your heart. Those blood clots are responsible for stroke in people with a.fib. Recommendations - 1. Low fiber diet x 7 days. See handout. After ~1 week you may resume a normal diet. 2. INCREASE your metoprolol succinate to 25mg twice daily. I sent a new prescription to your pharmacy for you. 3. Continue to monitor your pulse (heart rate) and blood pressure at home with a blood pressure cuff as well as your Apple Watch. Write down your blood pressures and heart rates. Please show these to Dr Villeda. Dr Villeda and/or Lluvia Saldana want to see you in the next week. Please contact their office to schedule an appointment. 4. Strongly consider resuming a blood thinner again. One option would be Eliquis. We contacted your pharmacy and it would cost $47/month. Eliquis is a twice daily blood thinner. You do not need monitoring of this medication in comparison to a drug called coumadin which requires checking coumadin levels each month. Please speak to your family doctor and Dr Villeda about this. Follow-up - see separate section Return to [facility] if - * you have any concerns that your small bowel blockage/obstruction has come back * you have severe nausea and/or vomiting * you are not passing gas or stool via your rectum * you are concerned about a.fib, your pulse/heart rate is fast (>100 beats per minute), and you feel dizzy, lightheaded, weak, have chest pain, or are short of breath * any other concerns It was our pleasure to care for you at [facility]! Dr Ro Pending Studies at Discharge: No Stand-Alone Forms: My [facility], Smoking Cessation Medications and DC Order Prescriptions: Continued sildenafil (pulm.hypertension) 20 mg tablet 20 mg PO DAILY PRN (Reason: sexual activity) Qty: 90 3RF Rx Instructions: Take 1-5 tablets as needed for sexual activity Do not exceed 100mg daily omeprazole 20 mg capsule,delayed release(DR/EC) 20 mg PO QAM cyanocobalamin (vitamin B-12) 500 mcg tablet 500 mcg PO QAM triamcinolone acetonide 0.1 % Cream 1 applic TOPICAL UD PRN (Reason: Rash) gabapentin 400 mg Capsule 400 mg PO TID cholecalciferol (vitamin D3) [Vitamin D3] 125 mcg (5,000 unit) Tablet 125 mcg PO QAM Changed metoprolol succinate 25 mg tablet extended release 24 hr 25 mg PO BID Qty: 60 2RF Discharge Orders: Discharge Order (Routine); Ordered 02/06/22 Ordered By: Lawrence Villafana/Other Patient Handouts: Small Bowel Obstruction, Low-Fiber Diet, AFib Preventing Stroke, AFib Admission Data Admit Date/Time: 02/03/22 14:31 Attending Provider: Lawrence Ro Admit Provider: Antonio Curtis Primary Care Provider: Yohn,Amanda K. Other Providers: Anotnio Curtis ; Navarro Lin Other Interventions: Discharge Summary Assessment (RN) Last Done: 02/06/22 14:42 Coding Level of Care Code D/C DAY MANAGEMENT >30 MINS Diagnoses SBO (small bowel obstruction) K56.609 Occlusion of saphenous vein I82.819 History of atrial fibrillation Z86.79 Epistaxis R04.0 S/P total hip arthroplasty Z96.649 History of DVT (deep vein thrombosis) Z86.718 History of pulmonary embolus (PE) Z86.711 HTN (hypertension) I10 Hypoglycemia E16.2
== END 2022-02-06 15:45 | disposition home or self-care (01) | DRG 389 ==
LOC: ED 09:26 → SUATTDRO 14:31 → INTOOBSV 14:31 → EDINP 14:31 → 2S 19:03

== ENCOUNTER 2023-04-17 13:32 | Inpatient (IN) ==
[2023-04-17] MEDS ORDERED: ONDANSETRON INJ 2 MG/ML 2 ML VIAL IV STA (13:50)
--- NOTE | 2023-04-17 13:50 | ED Triage Note ---
Date of Service April 17, 2023 Provider in Triage Author: Reed Farrell History of Present Illness This patient was briefly evaluated while in triage. An abbreviated physical exam was performed. This patient is a 83-year-old Male who presents to the ED for evaluation upset stomach, bloating nausea and vomiting started acutely overnight decreased BM hx of bowel obstructions, had colonscopy 04/06 Physical Exam GENERAL: Mild distress, nauseous and belching in wheelchair CARDIOVASCULAR: RRR RESPIRATORY: CTA ABDOMEN: BS hypoactive, abdomen diffusely TTP and distended. Initial orders for labs and / or imaging were placed and patient was placed in the waiting area until a bed is available. Please see further documentation for the full ED course.
[2023-04-17] MEDS ORDERED: SODIUM CHLORIDE 0.9% 1,000 ML IV SCH (13:51)
[2023-04-17 14:25] LABS: Basophils # (auto) 0.02 K/uL (0.00-0.20); Basophils % (auto) 0.1 %; Eosinophils # (auto) 0.04 K/uL (0.00-0.50); Eosinophils % (auto) 0.3 %; Hematocrit (blood only) 55.8 % (42.0-52.0); Hemoglobin 18.4 g/dl (14.0-18.0); Immature Granulocytes # (auto) 0.07 K/uL (0.01-0.20); Immature Granulocytes % (auto) 0.5 %; Lymphocytes # (auto) 1.23 K/uL (1.20-3.40); Lymphocytes % (auto) 8.6 %; Mean Corpuscular Hemoglobin 29.1 pg (25.0-34.0); Mean Corpuscular Volume 88.3 fL (80.0-100.0); Mean Platelet Volume 10.3 fL (9.4-12.4); Monocytes # (auto) 1.11 K/uL (0.11-0.59); Monocytes % (auto) 7.8 %; Neutrophils # (auto) 11.85 K/uL (1.40-6.50); Neutrophils % (auto) 82.7 %; Platelet Count 267 K/uL (130-400); RDW Coefficient of Variation 14.6 % (11.5-14.5); RDW Standard Deviation 45.9 fL (36.4-46.3); Red Blood Count 6.32 M/uL (4.70-6.10); White Blood Count 14.32 K/ul (4.8-10.8)
[2023-04-17 14:27] LABS: iSTAT Creatinine 1.1 mg/dl (0.6-1.3); iSTAT Hemoglobin 19.7 g/dl (14.0-18.0); iSTAT Ionized Calcium 1.2 mmol/l (1.12-1.32); iSTAT Potassium 4.3 mmol/L (3.3-5.0)
[2023-04-17] MEDS ORDERED: OPTIRAY 320 500ml IV ONE (14:33)
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
[2023-04-17 14:43] LABS: Alanine Aminotransferase 14 U/L (7-52); Albumin Globulin Ratio 1.2 (0.9-2); Albumin Level 4.2 gm/dl (3.4-5.0); Alkaline Phosphatase 74 U/L (34-104); Anion Gap 7 (3-11); Aspartate Aminotransferase 17 U/L (13-39); BUN Creatinine Ratio 19.3 (10-20); Bilirubin,Total 1.2 mg/dl (0.2-1.0); Blood Urea Nitrogen 22 mg/dl (6-23); Calcium 9.9 mg/dl (8.6-10.3); Carbon Dioxide 28 mmol/L (21-32); Chloride 102 mmol/L (98-107); Est GFR (African American) 67.6 ml/min; Est GFR (Non-African American) 58.3 ml/min; Globulin 3.5 gm/dl (2.5-4.0); Glucose 134 mg/dl (70-99(Fasting)); Lipase 10 U/L (11-82); Potassium 4.3 mmol/L (3.5-5.1); Sodium 137 mmol/L (136-145); Total Protein 7.7 gm/dl (6.0-8.3)
[2023-04-17 14:51] LABS: Troponin I High Sensitivity 6.1 pg/ml (0-20)
--- NOTE | 2023-04-17 15:38 | CT Scan Report ---
CT abd pelvis IV con only CLINICAL HISTORY: eval obstruction TECHNIQUE: Helical axial images of the abdomen and pelvis were obtained and displayed. Automated dose lowering techniques and/or adjustment according to patient size were utilized for this exam. This e xam was performed with intravenous contrast. CT DOSE: 1378.77 mGy.cm COMPARISON: Comparison is made to CT abdomen pelvis 02/03/2022 FINDINGS: Lower chest: Bibasilar atelectasis versus scarring is seen. Liver: Stable partially calcified hypodense lesions in the liver. Gallbladder and biliary tree: No calcified gallstones. Normal caliber wall. No intra- or extrahepatic biliary ductal dilation. Pancreas: Pancreatic tail cystic lesion is unchanged. Spleen: Lobular partially calcified splenic foci are unchanged. Adrenals: Unremarkable. Kidneys and ureters: Renal cysts are seen. Nonobstructive left-sided renal stones. Bladder: Limited evaluation due to underdistention. Reproductive organs: Unremarkable. Bowel: Diverticulosis is seen without diverticulitis. The appendix is normal. There is a small hiatal hernia. Redemonstration of multiple dilated loops of proximal small bowel. No definite transition po int is seen however there is gradual decrease in caliber in the right mid abdomen. Overall the extent of distention has mildly decreased from prior exam. Lymph nodes Retroperitoneal: Unremarkable. Pelvic: Unremarkable. Mesenteric: Unremarkable. Peritoneum: Normal. Vessels: Atherosclerotic calcifications are seen. Abdominal wall: Unremarkable. Bones: Degenerative changes in the visualized spine. IMPRESSION: 1. Interval minimal improvement in partial small bowel obstruction. 2. Additional findings as above. ACT 112: Negative or not required by law. Electronically signed by: Wilber Gutierrez M.D. 04/17/2023 3:36 PM
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
[2023-04-17] MEDS ORDERED: ACETAMINOPHEN 1,000 MG/100 ML VIAL IV PRN (18:22)
[2023-04-17] MEDS ORDERED: ONDANSETRON INJ 2 MG/ML 2 ML VIAL IV PRN (18:22)
[2023-04-17] MEDS ORDERED: MoRPHine SULFATE 2 MG/ML CARP IV PRN (18:22)
[2023-04-17 18:35] LABS: Appearance Urine Clear (Clear); Bilirubin Urine Negative (Negative); Blood Urine Negative (Negative); Color Urine Dark Yellow; Glucose Urine UA Negative (Negative); Ketones Urine 1+ (Negative); Leukocyte Esterase Urine Negative (Negative); Nitrite Urine Negative (Negative); Protein Urine Negative (Negative); Specific Gravity Urine > 1.045 (1.000-1.030); Urobilinogen Urine Negative (Negative)
[2023-04-17] MEDS: LACTATED RINGER'S 1,000 ML IV SCH (18:39)
[2023-04-17] MEDS: METOPROLOL TARTRATE 1 MG/ML VIAL IV SCH ×2 (18:43→23:51)
[2023-04-17] MEDS: ENOXAPARIN INJ 40 MG/0.4 ML SYR SQ SCH (20:47)
[2023-04-18] MEDS: LACTATED RINGER'S 1,000 ML IV SCH ×3 (01:55→17:03)
[2023-04-18] MEDS: METOPROLOL TARTRATE 1 MG/ML VIAL IV SCH ×4 (05:41→23:28)
[2023-04-18 06:42] LABS: Basophils # (auto) 0.03 K/uL (0.00-0.20); Basophils % (auto) 0.2 %; Eosinophils # (auto) 0.03 K/uL (0.00-0.50); Eosinophils % (auto) 0.2 %; Hematocrit (blood only) 45.8 % (42.0-52.0); Hemoglobin 15.2 g/dl (14.0-18.0); Immature Granulocytes # (auto) 0.04 K/uL (0.01-0.20); Immature Granulocytes % (auto) 0.3 %; Lymphocytes # (auto) 1.65 K/uL (1.20-3.40); Lymphocytes % (auto) 13.6 %; Mean Corpuscular Hemoglobin 29.3 pg (25.0-34.0); Mean Corpuscular Hgb Conc 33.2 g/dL (32.0-36.0); Mean Corpuscular Volume 88.2 fL (80.0-100.0); Mean Platelet Volume 10.5 fL (9.4-12.4); Monocytes # (auto) 1.45 K/uL (0.11-0.59); Monocytes % (auto) 11.9 %; Neutrophils # (auto) 8.94 K/uL (1.40-6.50); Neutrophils % (auto) 73.8 %; Platelet Count 203 K/uL (130-400); RDW Coefficient of Variation 14.3 % (11.5-14.5); RDW Standard Deviation 45.8 fL (36.4-46.3); Red Blood Count 5.19 M/uL (4.70-6.10); White Blood Count 12.14 K/ul (4.8-10.8)
[2023-04-18 07:01] LABS: BUN Creatinine Ratio 22.6 (10-20); Calcium 8.8 mg/dl (8.6-10.3); Creatinine Clr Calc Pharmacy 62.4 ml/min; Est GFR (African American) 86.5 ml/min; Est GFR (Non-African American) 74.6 ml/min
[2023-04-18] MEDS: PANTOprazole 40 MG in SYRINGE 0 ML IV SCH (10:57)
--- NOTE | 2023-04-18 14:18 | Electrocardiogram Report ---
Test Reason : Blood Pressure : / mmHG Vent. Rate : 088 BPM Atrial Rate : 088 BPM P-R Int : 158 ms QRS Dur : 076 ms QT Int : 324 ms P-R-T Axes : 049 -33 017 degrees QTc Int : 392 ms Normal sinus rhythm Left axis deviation Incomplete right bundle branch block Low voltage QRS Abnormal ECG When compared with ECG of 03-FEB-2022 10:56, No significant change was found Confirmed by Edmund Canales ([id number]) on 04/18/2023 2:18:19 PM Referred By: REFERRED SELF Confirmed By:Mk Canales
--- NOTE | 2023-04-18 15:13 | Hospitalist Progress Note ---
Date of Service April 18, 2023 Assessment & Plan (1) SBO (small bowel obstruction): Plan: Conservative management. Continue n.p.o. status and IV fluids. Repeat KUB again tomorrow, April 19. (2) Benign localized hyperplasia of prostate with urinary obstruction: Plan: Stable. Medical management (3) Atrial fibrillation: Plan: Single episode in the past due to DVT/PE after a prolonged hospitalization. He was anticoagulated on Eliquis which was continued for around 3 years. A-fib has not recurred since the single episode at that time. Denies chest pain/chest pressure/palpitations. Plan Anticipate eventual discharge to home later this week if small bowel obstruction spontaneously resolved Admission and Anticipated Discharge Date Admission Date: April 17, 2023 Subjective Alert and oriented. No distress. is at the bedside. He remains n.p.o. on IV fluids. Will repeat KUB tomorrow, April 19. He is passing gas Review of Systems 2 Review of Systems: Constitutional-no fever or chills ENT-no blurred vision, no double vision, no epistaxis, no sore throat Respiratory-no cough, no wheezing, no shortness of breath Cardiac-no palpitations, no chest pain, no syncope GI-abdomen is mildly distended. No nausea or vomiting. He is having some flatulence. -no urinary retention, no urinary incontinence, no dysuria, no hematuria Musculoskeletal-no joint pain, no muscle tenderness Skin-no bruising, no rashes, no pruritus Neuro-no isolated weakness, no paresthesia Psych-no depression, no anxiety Physical Exam 2 Physical Exam: General-alert and oriented x3, no fevers, no chills HEENT-head atraumatic and normocephalic, pupils equal and reactive to light, extraocular muscles intact Neck-no lymphadenopathy or thyromegaly, trachea midline Chest-clear to auscultation. No rales, wheezing or rhonchi Cardiac-regular rate and rhythm, normal S1 and S2 Abdomen-slightly distended. Bowel sounds hypoactive but present. No focal tenderness. No rebound or guarding. Extremities-no cyanosis, clubbing, or edema Neuro-cranial nerves II through XII intact, motor and sensory function within normal limits, strength symmetrical, no focal deficits Psych-normal affect, normal mood Results & Data Results & Data Vital Signs (Past 12 Hours) Vital Signs Temp Pulse Pulse Resp BP BP Pulse Ox 04/18/23 14:57 82 04/18/23 11:17 80 04/18/23 10:57 77 127/66 04/18/23 10:22 04/18/23 08:00 36.6 C 86 19 118/68 97 04/18/23 07:44 76 04/18/23 06:22 81 124/63 04/18/23 05:41 87 120/64 O2 Del Method O2 Flow Rate 04/18/23 14:57 04/18/23 11:17 04/18/23 10:57 04/18/23 10:22 Room Air 04/18/23 08:00 Nasal Cannula 1.0 04/18/23 07:44 04/18/23 06:22 04/18/23 05:41 Laboratory Results 04/18/23 06:14 04/18/23 06:14 PG Care Time/CCT Total # of Minutes Spent Total Time Spent with Patient: Total time spent is greater than 50% in coordination of care (as documented) at patient's floor/unit and/or counseling patient: Coding Level of Care Code 67646 SUB INP/OBS CARE 3/50MIN Diagnoses SBO (small bowel obstruction) K56.609 Benign localized hyperplasia of prostate with urinary obstruction N40.1; N13.8 Atrial fibrillation I48.91
[2023-04-18] MEDS: ENOXAPARIN INJ 40 MG/0.4 ML SYR SQ SCH (21:01)
[2023-04-19] MEDS: LACTATED RINGER'S 1,000 ML IV SCH ×2 (01:01→09:53)
[2023-04-19] MEDS: METOPROLOL TARTRATE 1 MG/ML VIAL IV SCH ×2 (06:00→12:26)
[2023-04-19 06:58] LABS: Basophils # (auto) 0.02 K/uL (0.00-0.20); Basophils % (auto) 0.3 %; Eosinophils # (auto) 0.09 K/uL (0.00-0.50); Eosinophils % (auto) 1.2 %; Hematocrit (blood only) 43.5 % (42.0-52.0); Hemoglobin 14.5 g/dl (14.0-18.0); Immature Granulocytes # (auto) 0.03 K/uL (0.01-0.20); Immature Granulocytes % (auto) 0.4 %; Mean Corpuscular Hemoglobin 29.4 pg (25.0-34.0); Mean Corpuscular Hgb Conc 33.3 g/dL (32.0-36.0); Mean Corpuscular Volume 88.1 fL (80.0-100.0); Mean Platelet Volume 10.1 fL (9.4-12.4); Monocytes # (auto) 0.85 K/uL (0.11-0.59); Monocytes % (auto) 11.5 %; Neutrophils # (auto) 4.97 K/uL (1.40-6.50); Neutrophils % (auto) 67.6 %; Platelet Count 188 K/uL (130-400); RDW Coefficient of Variation 13.8 % (11.5-14.5); RDW Standard Deviation 44.7 fL (36.4-46.3); Red Blood Count 4.94 M/uL (4.70-6.10); White Blood Count 7.36 K/ul (4.8-10.8)
[2023-04-19 07:16] LABS: BUN Creatinine Ratio 20.5 (10-20); Calcium 8.9 mg/dl (8.6-10.3); Creatinine Clr Calc Pharmacy 74.7 ml/min; Est GFR (African American) 95.4 ml/min; Est GFR (Non-African American) 82.3 ml/min; Potassium 4.1 mmol/L (3.5-5.1)
--- NOTE | 2023-04-19 08:16 | XRay Report ---
KUB CLINICAL HISTORY: Small bowel obstruction. COMPARISON STUDY: CT of the abdomen and pelvis April 17, 2023. FINDINGS: Left hip arthroplasty is incidentally noted. Small bowel dilatation has mildly improved. No evidence for free air on supine exam. No radiographic evidence for pneumatosis or portal venous gas. IMPRESSION: Mild small bowel dilatation, improved since prior exam. The findings favor an improving small bowel obstruction. ACT 112: Negative or not required by law. Electronically signed by: Peter Smith M.D. 04/19/2023 8:14 AM
[2023-04-19] MEDS: PANTOprazole 40 MG in SYRINGE 0 ML IV SCH (10:18)
--- NOTE | 2023-04-19 14:42 | Hospitalist Progress Note ---
Date of Service April 19, 2023 Assessment & Plan (1) SBO (small bowel obstruction): Plan: Resolving. Diet advanced to clear liquids today for lunch and full liquids for supper. IV fluids discontinued. KUB done this morning, April 19, looked better (2) Benign localized hyperplasia of prostate with urinary obstruction: Plan: Stable. Medical management (3) Atrial fibrillation: Plan: Single episode in the past due to DVT/PE after a prolonged hospitalization. He was anticoagulated on Eliquis which was continued for around 3 years. A-fib has not recurred since the single episode at that time. Denies chest pain/chest pressure/palpitations. IV metoprolol switch back to oral dosing today, April 19 Plan Hopefully home tomorrow, April 20 Admission and Anticipated Discharge Date Admission Date: April 17, 2023 Subjective Alert and oriented. No complaints. KUB done this morning, April 19, looks better. He has been started on clear liquids which will be advanced as tolerated. IV fluids discontinued. Hopefully he can go home tomorrow, April 20. IV metoprolol will be switched back to oral dosing Review of Systems 2 Review of Systems: Constitutional-no fever or chills ENT-no blurred vision, no double vision, no epistaxis, no sore throat Respiratory-no cough, no wheezing, no shortness of breath Cardiac-no palpitations, no chest pain, no syncope GI-abdomen is mildly distended. No nausea or vomiting. He is having some flatulence. -no urinary retention, no urinary incontinence, no dysuria, no hematuria Musculoskeletal-no joint pain, no muscle tenderness Skin-no bruising, no rashes, no pruritus Neuro-no isolated weakness, no paresthesia Psych-no depression, no anxiety Physical Exam 2 Physical Exam: General-alert and oriented x3, no fevers, no chills HEENT-head atraumatic and normocephalic, pupils equal and reactive to light, extraocular muscles intact Neck-no lymphadenopathy or thyromegaly, trachea midline Chest-clear to auscultation. No rales, wheezing or rhonchi Cardiac-regular rate and rhythm, normal S1 and S2 Abdomen-slightly distended but this is normal according to the patient. Bowel sounds active. No focal tenderness. No rebound or guarding. Extremities-no cyanosis, clubbing, or edema Neuro-cranial nerves II through XII intact, motor and sensory function within normal limits, strength symmetrical, no focal deficits Psych-normal affect, normal mood Results & Data Results & Data Vital Signs (Past 12 Hours) Vital Signs Temp Pulse Pulse Resp BP BP Pulse Ox 04/19/23 12:04 36.5 C 67 16 142/67 H 93 04/19/23 07:56 37.4 C 70 18 133/71 93 04/19/23 06:25 65 113/59 L 04/19/23 06:00 77 133/64 04/19/23 03:00 36.4 C L 62 22 132/53 L 89 L O2 Del Method 04/19/23 12:04 Room Air 04/19/23 07:56 Room Air 04/19/23 06:25 04/19/23 06:00 04/19/23 03:00 Room Air Laboratory Results 04/19/23 06:40 04/19/23 06:40 PG Care Time/CCT Total # of Minutes Spent Total Time Spent with Patient: Total time spent is greater than 50% in coordination of care (as documented) at patient's floor/unit and/or counseling patient: Coding Level of Care Code 12096 SUB INP/OBS CARE 3/50MIN Diagnoses SBO (small bowel obstruction) K56.609 Benign localized hyperplasia of prostate with urinary obstruction N40.1; N13.8 Atrial fibrillation I48.91
[2023-04-19] MEDS: METOPROLOL SUCC 25MG EXT REL TAB PO SCH (20:27)
[2023-04-19] MEDS: ENOXAPARIN INJ 40 MG/0.4 ML SYR SQ SCH (20:28)
[2023-04-20 06:44] LABS: Basophils # (auto) 0.02 K/uL (0.00-0.20); Basophils % (auto) 0.3 %; Eosinophils # (auto) 0.11 K/uL (0.00-0.50); Eosinophils % (auto) 1.4 %; Hematocrit (blood only) 42.7 % (42.0-52.0); Hemoglobin 14.9 g/dl (14.0-18.0); Immature Granulocytes # (auto) 0.03 K/uL (0.01-0.20); Immature Granulocytes % (auto) 0.4 %; Lymphocytes # (auto) 1.53 K/uL (1.20-3.40); Lymphocytes % (auto) 20.1 %; Mean Corpuscular Hemoglobin 29.3 pg (25.0-34.0); Mean Corpuscular Hgb Conc 34.9 g/dL (32.0-36.0); Mean Corpuscular Volume 84.1 fL (80.0-100.0); Mean Platelet Volume 10.3 fL (9.4-12.4); Monocytes # (auto) 1.02 K/uL (0.11-0.59); Monocytes % (auto) 13.4 %; Neutrophils # (auto) 4.89 K/uL (1.40-6.50); Neutrophils % (auto) 64.4 %; Platelet Count 214 K/uL (130-400); RDW Coefficient of Variation 13.5 % (11.5-14.5); RDW Standard Deviation 41.8 fL (36.4-46.3); Red Blood Count 5.08 M/uL (4.70-6.10)
[2023-04-20 07:09] LABS: Potassium 3.7 mmol/L (3.5-5.1)
[2023-04-20 07:14] LABS: Creatinine Clr Calc Pharmacy 69.8 ml/min; Est GFR (Non-African American) 80.2 ml/min
[2023-04-20] MEDS: METOPROLOL SUCC 25MG EXT REL TAB PO SCH (08:37)
[2023-04-20] MEDS: GABAPENTIN 100 MG CAP PO SCH ×2 (10:02→13:04)
[2023-04-20] MEDS: PANTOprazole 40 MG in SYRINGE 0 ML IV SCH (10:04)
--- NOTE | 2023-04-20 11:48 | Discharge Summary ---
Date of Service April 20, 2023 Admission HPI Per Admitting Provider 83-year-old male with a past medical history of GERD, small bowel obstruction, A-fib with no recent recurrence, UTI, and recent colonoscopy 04/06/2023 which showed multiple sigmoid/descending colon diverticula and was an otherwise normal exam Abd distension sinc elast night. Gas stopped early this morning. Had some liquid BM last night then stopped along with gas. Abd pain earlier, improved slightly now. +burping and belching. Last night had 1 episode of nausea, this morning multiple episodes of emesis. Denies fevers, chills, and sweats. No chest pain. No chest pressure. No shortness of breath. No heart problems. No kidney problems. Hx lung nodule 2015 which was removed and was found to be benign, no other lung problems. Reports a single episode of atrial fibrillation related to a blood clot after being in the hospital for 20+ days with a bowel issue, however veins were ligated and he has had no recurrence of afib, no recurrent PE/DVT< and was treated for 3 months with anticogulant then this was discontinued per pt and his . He was treated with warfarin x3 months, eliquis for a few years around 2001and then discontinued as pt was doing well. No dvt/pe since. Medical History: Reviewed Medications: Reviewed Surgical History: Reviewed Family history: Reviewed Allergies: Reviewed Social History: No tobacco use. No etoh use. Code Status:DNR/DNI Principal Diagnosis Small bowel obstruction Discharge Exam General-alert and oriented x3, no fevers, no chills HEENT-head atraumatic and normocephalic, pupils equal and reactive to light, extraocular muscles intact Neck-no lymphadenopathy or thyromegaly, trachea midline Chest-clear to auscultation. No rales, wheezing or rhonchi Cardiac-regular rate and rhythm, normal S1 and S2 Abdomen-slightly distended but this is normal according to the patient. Bowel sounds active. No focal tenderness. No rebound or guarding. Extremities-no cyanosis, clubbing, or edema Neuro-cranial nerves II through XII intact, motor and sensory function within normal limits, strength symmetrical, no focal deficits Psych-normal affect, normal mood Discharge Data Allergies Allergy/AdvReac Type Severity Reaction Status Date / Time sulfamethoxazole Allergy Unknown RASH Verified 04/06/23 12:52 trimethoprim Allergy Unknown RASH Verified 04/06/23 12:52 oxycodone AdvReac Intermediate Dizziness Verified 04/06/23 12:52 Consultations 04/17/23 15:46 ED Decision to Admit Stat Ordered Studies 04/17/23 13:50 CT abd pelvis IV con only Stat Hospital Course (1) SBO (small bowel obstruction): Resolved. Diet has been advanced to solid food and he is tolerating this well. (2) Benign localized hyperplasia of prostate with urinary obstruction: Stable. Medical management (3) Atrial fibrillation: Single episode in the past due to DVT/PE after a prolonged hospitalization. He was anticoagulated on Eliquis which was continued for around 3 years. A-fib has not recurred since the single episode at that time. Denies chest pain/chest p ressure/palpitations. IV metoprolol switch back to oral dosing on April 19 Plan Home today, April 20 Total Time Total Time Spent Total Time Spent (In Minutes): 45 minutes Discharge Plan Discharge Items Patient Disposition: Home - Self-Care Reason For Visit: SBO Discharge Diagnosis: Small bowel obstruction Activity: Resume your previous activity Non-emergency contact: Primary Care Provider Call non-emergency contact if: your symptoms worsen Follow-up/Referrals: Checo Huerta MD [Primary Care Provider] - Diet: Regular and Heart Healthy Addtl Attending Provider Instructions: All medications remain the same. Keep stools soft with a stool softener daily , available [id number] without a prescription Pending Studies at Discharge: No Stand-Alone Forms: [employer], Smoking Cessation Medications and DC Order Prescriptions: Continued sildenafil (pulm.hypertension) 20 mg tablet 20 mg PO DAILY PRN (Reason: sexual activity) Qty: 90 3RF Rx Instructions: Take 1-5 tablets as needed for sexual activity Do not exceed 100mg daily omeprazole 20 mg capsule,delayed release(DR/EC) 20 mg PO QAM cyanocobalamin (vitamin B-12) 500 mcg tablet 500 mcg PO QAM gabapentin 400 mg Capsule 400 mg PO TID Rx Instructions: with 100mg for a total dose of 500mg TID metoprolol succinate 25 mg tablet extended release 24 hr 25 mg PO BID Qty: 60 2RF vitamin B complex Tablet Extended Release 1 tab PO QAM amoxicillin 500 mg Tablet 500 mg PO UD PRN (Reason: dental procedures) gabapentin 100 mg Capsule 100 mg PO TID Rx Instructions: for a total dose of 500mg TID PreserVision AREDS-2 250-90-40-1 mg Capsule 1 tab PO QAM Artificial Tears (cmc) 1 % Drops 1 drp OPHTHALMIC (EYE) TID cholecalciferol (vitamin D3) [Vitamin D3] 125 mcg (5,000 unit) Tablet 125 mcg PO QAM Discharge Orders: Discharge Order (Routine); Ordered 04/20/23 Ordered By: Ciaran Thomas Admission Data Admit Date/Time: 04/17/23 16:37 Attending Provider: Ciaran Thomas Admit Provider: Antonio Curtis Primary Care Provider: Checo Huerta Other Providers: Antonio Curtis Coding Level of Care Code 92118 INP/OBS DISCH >30 MIN Diagnoses SBO (small bowel obstruction) K56.609 Benign localized hyperplasia of prostate with urinary obstruction N40.1; N13.8 Atrial fibrillation I48.91
== END 2023-04-20 13:30 | disposition home or self-care (01) | DRG 390 ==
LOC: ED 13:32 → SUATTDRO 16:37 → 2E 16:37

== ENCOUNTER 2023-07-29 15:36 | Inpatient (IN) ==
[2023-07-29] MEDS: HYDROmorphone INJ 1 MG/ML SYRINGE IV STA (17:05)
[2023-07-29] MEDS: ONDANSETRON INJ 2 MG/ML 2 ML VIAL IV STA (17:05)
[2023-07-29 17:21] LABS: Basophils # (auto) 0.05 K/uL (0.00-0.20); Basophils % (auto) 0.5 %; Eosinophils # (auto) 0.12 K/uL (0.00-0.50); Eosinophils % (auto) 1.2 %; Hemoglobin 16.7 g/dl (14.0-18.0); Immature Granulocytes # (auto) 0.03 K/uL (0.01-0.20); Immature Granulocytes % (auto) 0.3 %; Lymphocytes # (auto) 2.26 K/uL (1.20-3.40); Lymphocytes % (auto) 23.3 %; Mean Corpuscular Hemoglobin 29.3 pg (25.0-34.0); Mean Corpuscular Hgb Conc 34.1 g/dL (32.0-36.0); Mean Platelet Volume 10.6 fL (9.4-12.4); Monocytes # (auto) 0.94 K/uL (0.11-0.59); Monocytes % (auto) 9.7 %; Platelet Count 269 K/uL (130-400); RDW Coefficient of Variation 15.1 % (11.5-14.5); RDW Standard Deviation 47.5 fL (36.4-46.3)
[2023-07-29] MEDS: OPTIRAY 320 100ml IV ONE (17:23)
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
[2023-07-29 17:52] LABS: Albumin Level 3.9 gm/dl (3.4-5.0); BUN Creatinine Ratio 20.2 (10-20); Bilirubin Direct 0.1 mg/dl (0-0.2); Bilirubin,Total 0.7 mg/dl (0.2-1.0); Calcium 9.7 mg/dl (8.6-10.3); Creatinine Clr Calc Pharmacy 64.8 ml/min; Est GFR (African American) 80.2 ml/min; Est GFR (Non-African American) 69.2 ml/min; Potassium 4.1 mmol/L (3.5-5.1); Troponin I High Sensitivity 6.1 pg/ml (0-20)
--- NOTE | 2023-07-29 18:48 | XRay Report ---
SINGLE VIEW CHEST CLINICAL HISTORY: Dyspnea FINDINGS: 2 AP, portable, upright chest radiographs are compared to study dated 04/22/2019 and correla clive with chest CT dated 01/12/2019. The heart is enlarged noting atherosclerotic calcification of the thoracic aorta. The pulmonary vasculature is noncongested. Chronic interstitial thickening is simila r to previous. Postsurgical change is noted at the left apex. Foci of parenchymal scarring are seen t hroughout both lungs. No airspace consolidation or large pleural effusion is identified. No pneumotho rax is seen. The bony thorax is grossly intact. Advanced arthritic change is noted in the shoulders. IMPRESSION: 1. No acute cardiopulmonary abnormality is identified. 2. Cardiomegaly with chronic and postsurgical changes as above. ACT 112: Negative or not required by law. Electronically signed by: Behzad Parmar M.D. 07/29/2023 6:47 PM
--- NOTE | 2023-07-29 19:09 | CT Scan Report ---
CT SCAN OF THE ABDOMEN AND PELVIS WITH IV CONTRAST CLINICAL HISTORY: Right-sided abdominal pain. COMPARISON STUDY: Abdominal CT dated 04/17/2023. TECHNIQUE: Following the IV administration of 93 cc of Optiray 320, CT scan of the abdomen and pelvi s is performed from the lung bases to the proximal femora. Images are reviewed in the axial, sagittal , and coronal planes. IV contrast was administered without complication. A dose lowering technique wa s utilized adhering to the principles of ALARA. CT DOSE: 1456.61 mGy.cm FINDINGS: Lung bases: The heart is mildly enlarged and without pericardial effusion. There are coronary artery calcifications. There is bibasilar scarring/atelectasis. The lung bases are otherwise clear. There is a small hiatal hernia. Liver: The contrast-enhanced liver is normal in size, contour, and attenuation. There is no intrahepa tic biliary ductal dilatation. The hepatic veins and portal veins are patent. Lobulated calcification -containing hepatic lesions are unchanged. The largest measures up to 5.5 cm. Gallbladder: The gallbladder is distended, with pericholecystic inflammation and fluid. Spleen: A normal spleen is not identified. Large splenules are seen in the left upper quadrant. Pancreas: A 12 mm simple cystic lesion in the pancreatic tail on image #110 is unchanged. 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 The pancreas is mildly atrophic and otherwise grossly unremarkable. Adrenal glands: Unremarkable. Kidneys: The contrast enhanced kidneys demonstrate mild cortical atrophy and are without hydronephros is. The kidneys enhance symmetrically. Bilateral cysts measure up to 3.3 cm. Additional subcentimeter cortical hypodensities also likely represent cysts but are too small for definitive characterization . A 3 mm nonobstructing calculus is seen on the left. A punctate nonobstructing calculus is seen on t he right. Abdominal vasculature: The abdominal aorta is normal in course and caliber noting moderate atheroscle rotic calcification. Bowel: There is advanced colonic diverticulosis without CT evidence of acute diverticulitis. No bowel obstruction is seen. The appendix is well-visualized and normal. Peritoneum: There is no intraperitoneal free air or abdominal ascites. Lymphadenopathy: None. Pelvic viscera: Evaluation of the pelvis is degraded by streak artifact from a left hip arthroplasty. The prostate gland is mildly enlarged and heterogeneous. The bladder is decompressed, and the wall i s thickened/trabeculated indicating chronic outlet obstruction. There is evidence of bilateral internet marketing analyst al herniorrhaphy. Skeletal structures: The skeletal structures are osteopenic. There is moderate to advanced cervical s pondylosis and mild scoliosis. No lytic or blastic lesions are seen. A left hip arthroplasty is in pl jil. Arthritic changes noted in the right hip. IMPRESSION: 1. Acute cholecystitis. Surgical evaluate is advised. 2. Cardiomegaly. 3. Advanced colonic diverticulosis without CT evidence of acute diverticulitis. 4. Bilateral nephrolithiasis. 5. Additional findings as above. ACT 112: Negative or not required by law. Electronically signed by: Behzad Parmar M.D. 07/29/2023 7:06 PM
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
[2023-07-29] MEDS: metroNIDAZOLE 500 MG/100 ML BAG IV STA (19:50)
[2023-07-29] MEDS: cefTRIAXone SODIUM 2,000 MG/50 ML BAG IV STA (19:50)
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
[2023-07-29] MEDS: LACTATED RINGER'S 500 ML IV ONE (21:08)
[2023-07-29 21:15] LABS: iSTAT Hemoglobin 16.3 g/dl (14.0-18.0); iSTAT Ionized Calcium 1.26 mmol/l (1.12-1.32); iSTAT Potassium 4.4 mmol/L (3.3-5.0)
[2023-07-29] MEDS ORDERED: HYDROmorphone INJ 0.5 MG/0.5 ML SYR IV PRN (21:37)
--- NOTE | 2023-07-29 21:45 | Ultrasound Report ---
ULTRASOUND RIGHT UPPER QUADRANT ABDOMEN CLINICAL HISTORY: Acute cholecystitis. COMPARISON STUDY: Abdominal CT dated 07/29/2023 TECHNIQUE: Real-time, grayscale, and color flow sonography of the right upper quadrant of the abdomen was performed. Images are reviewed in the transverse and longitudinal planes. FINDINGS: Liver: The liver is normal in size and echotexture. There is no intrahepatic biliary ductal dilatatio n. The main portal vein is patent. Calcification-containing hepatic lesions are unchanged. These were better seen on CT. Gallbladder: The gallbladder is distended, measuring 12 cm in length. The gallbladder wall is thicken ed and edematous, measuring up to 5 mm. Biliary sludge is noted. No shadowing calculi. There is trace pericholecystic fluid. A sonographic Delgado's sign is reportedly present. The common bile duct measu res up to 0.5 cm in diameter. Pancreas: Visualized portions of the pancreatic head and body are normal in appearance. The splenic v ein is patent. Right kidney: Survey images of the right kidney demonstrate normal size and echotexture. There is no hydronephrosis. Right renal cysts measure up to 3.2 cm. Ascites: None. IMPRESSION: 1. Acute cholecystitis. 2. No intra or extrahepatic biliary ductal dilatation is seen. ACT 112: Negative or not required by law. Electronically signed by: Behzad Parmar M.D. 07/29/2023 9:42 PM
[2023-07-29] MEDS: METOPROLOL SUCC 25MG EXT REL TAB PO SCH (22:55)
[2023-07-29] MEDS: GABAPENTIN 100 MG CAP PO SCH (22:56)
[2023-07-29] MEDS: GABAPENTIN 400 MG CAP PO SCH (22:56)
[2023-07-29 23:28] LABS: Appearance Urine Clear (Clear); Bilirubin Urine Negative (Negative); Blood Urine Negative (Negative); Color Urine Yellow; Glucose Urine UA Negative (Negative); Ketones Urine 1+ (Negative); Leukocyte Esterase Urine Negative (Negative); Nitrite Urine Negative (Negative); Protein Urine Negative (Negative); Specific Gravity Urine > 1.045 (1.000-1.030); Urobilinogen Urine Negative (Negative)
[2023-07-30] MEDS: ACETAMINOPHEN 1,000 MG/100 ML VIAL IV PRN (00:09)
[2023-07-30] MEDS: LACTATED RINGER'S 1,000 ML IV SCH (00:43)
[2023-07-30] MEDS: HYDROmorphone INJ 0.5 MG/0.5 ML SYR IV PRN (02:05)
[2023-07-30] MEDS: metroNIDAZOLE 500 MG/100 ML BAG IV SCH (05:32)
--- NOTE | 2023-07-30 05:53 | Surgery Progress Note ---
Date of Service July 30, 2023 Assessment & Plan (1) Cholecystitis: Plan: Patient has been admitted on the hospitalist service. From surgical perspective we recommend proceeding/continuing care as follows: Acute cholecystitis was noted on CT scan at time of admission on 07/29/2023. A gallbladder ultrasound has subsequently been performed which demonstrated findings concerning for acute cholecystitisthe gallbladder is noted to be distended with gallbladder wall thickening. Biliary sludge was noted with no shadowing gallstones. Trace pericholecystic fluid was noted. There is no biliary ductal dilatation Continue analgesics Continue antiemetics Maintain n.p.o. status Continue IV fluids while n.p.o. There is no elevation of LFTs or lipase at time of admission. Repeat a.m. labs are planned for this morning which are pending Continue antibiotics in form of Rocephin and Flagyl Patient is tentatively plan for cholecystectomy with Dr. Yu later today Additional recommendations be forthcoming based on his clinical course as unfolds as above. pt seen. still with RUQ pain. LFT's ok. will plan lap liv this morning. discussed risks ( bleeding/infection/blood clots/bile duct injury or leaks/injury to other organs etc...). questions answered. pt agreeable. Admission and Anticipated Discharge Date Admission Date: July 29, 2023 Subjective Patient is currently resting in bed. He notes continued pain in his abdomen most notably in the right upper quadrant. He denies any fevers, shakes, or chills. He denies any nausea or vomiting. He does note that his abdominal pain is worse when he takes a deep breath and the pain is again primary located in the right upper quadrant. Physical Exam Respiratory: Patient is not using accessory muscles to aid in respiration. His breath sounds are decreased at the baseshis respiratory effort seems to be decreased as deep inspirations exacerbate his abdominal pain Cardiovascular: Rate/Rhythm: regular rate and regular rhythm Gastrointestinal (Abdomen): Abdomen is minimally distended at this time. Bowel sounds are hypoactive. There is no rebound tenderness, but patient does have pain in the right upper quadrant with a positive Delgado sign and some guarding. Results & Data Vital Signs (Past 12 Hours) Vital Signs Temp Pulse Pulse Pulse Resp BP BP 07/30/23 02:19 36.8 C 87 18 116/72 07/30/23 01:04 65 16 07/29/23 22:54 75 18 132/73 07/29/23 21:30 36.3 C L 71 18 144/81 H 07/29/23 21:00 57 L 20 128/75 07/29/23 20:00 53 L 18 128/75 07/29/23 19:30 54 L 21 130/75 07/29/23 19:01 61 20 136/75 07/29/23 19:00 62 22 07/29/23 18:31 69 19 07/29/23 18:29 64 20 123/79 07/29/23 18:02 66 07/29/23 18:00 65 18 142/75 H Pulse Ox O2 Del Method O2 Flow Rate 07/30/23 02:19 90 Nasal Cannula 2 07/30/23 01:04 92 Nasal Cannula 2 07/29/23 22:54 88 L Room Air 07/29/23 21:30 93 Room Air 07/29/23 21:00 93 Room Air 07/29/23 20:00 93 Room Air 07/29/23 19:30 93 07/29/23 19:01 89 L 07/29/23 19:00 88 L 07/29/23 18:31 87 L 07/29/23 18:29 88 L 07/29/23 18:02 07/29/23 18:00 95 Room Air PG Care Time/CCT Total # of Minutes Spent Total Time Spent with Patient: Total time spent is greater than 50% in coordination of care (as documented) at patient's floor/unit and/or counseling patient: Coding Level of Care Code 11203 SUB INP/OBS CARE 04/21MIN Diagnoses Cholecystitis K81.9
[2023-07-30 07:06] LABS: Basophils # (auto) 0.03 K/uL (0.00-0.20); Basophils % (auto) 0.2 %; Hematocrit (blood only) 46.5 % (42.0-52.0); Hemoglobin 15.7 g/dl (14.0-18.0); Immature Granulocytes # (auto) 0.37 K/uL (0.01-0.20); Immature Granulocytes % (auto) 1.9 %; Lymphocytes # (auto) 0.84 K/uL (1.20-3.40); Lymphocytes % (auto) 4.4 %; Mean Corpuscular Hemoglobin 29.1 pg (25.0-34.0); Mean Corpuscular Hgb Conc 33.8 g/dL (32.0-36.0); Mean Corpuscular Volume 86.3 fL (80.0-100.0); Mean Platelet Volume 10.3 fL (9.4-12.4); Monocytes # (auto) 1.34 K/uL (0.11-0.59); Neutrophils # (auto) 16.57 K/uL (1.40-6.50); Neutrophils % (auto) 86.5 %; Platelet Count 238 K/uL (130-400); RDW Coefficient of Variation 15.3 % (11.5-14.5); RDW Standard Deviation 48.1 fL (36.4-46.3); Red Blood Count 5.39 M/uL (4.70-6.10); White Blood Count 19.15 K/ul (4.8-10.8)
[2023-07-30 07:22] LABS: Albumin Globulin Ratio 1.3 (0.9-2); Albumin Level 3.5 gm/dl (3.4-5.0); BUN Creatinine Ratio 17.8 (10-20); Calcium 8.6 mg/dl (8.6-10.3); Creatinine Clr Calc Pharmacy 71.3 ml/min; Est GFR (African American) 89.9 ml/min; Est GFR (Non-African American) 77.6 ml/min; Globulin 2.6 gm/dl (2.5-4.0); Potassium 4.4 mmol/L (3.5-5.1); Total Protein 6.1 gm/dl (6.0-8.3)
[2023-07-30 07:23] LABS: Partial Thromboplastin Time 26 Seconds (21-31); Prothrombin Time 11.3 Seconds (9.0-12.0)
[2023-07-30] MEDS: CEROVITE ADV FORMULA TAB PO SCH (08:14)
[2023-07-30] MEDS: VITAMIN B COMPLEX TAB PO SCH (08:14)
[2023-07-30] MEDS: FAMOTIDINE 40 MG TABLET PO SCH (08:15)
[2023-07-30] MEDS: CHOLECALCIFEROL 125 MCG (5,000 UNITS) TAB PO SCH (08:15)
[2023-07-30] MEDS: CYANOCOBALAMIN (B-12) 500 MCG TABLET PO SCH (08:15)
[2023-07-30] MEDS: ARTIFICIAL TEARS OP SCH (08:23)
[2023-07-30] MEDS ORDERED: FAMOTIDINE/PF 20 MG/2 ML VIAL IV ONE (10:52)
[2023-07-30] MEDS ORDERED: fentaNYL citrate PF 100 MCG/2 ML VIAL ONE ×2 (10:54→13:05)
[2023-07-30] MEDS ORDERED: DEXAMETHASONE SOD INJ 4 MG/ML VIAL ONE (10:56)
[2023-07-30] MEDS ORDERED: SUGAMMADEX SODIUM 200 MG/2 ML VIAL IV ONE (10:56)
[2023-07-30] MEDS ORDERED: ONDANSETRON INJ 2 MG/ML 2 ML VIAL ONE (10:56)
[2023-07-30] MEDS ORDERED: PROPOFOL IV EMULSION 10 MG/ML 20 ML VIAL IV ONE (10:56)
[2023-07-30] MEDS ORDERED: METOCLOPRAMIDE HCL INJ 5 MG/ML 2 ML VIAL ONE (10:56)
[2023-07-30] MEDS ORDERED: LIDOCAINE 2% 2 ML VIAL/AMP(20MG/ML) INFIL ONE (10:56)
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
[2023-07-30] MEDS ORDERED: ePHEDrine sulfate 50 MG/ML AMP IV PRN (12:19)
[2023-07-30] MEDS ORDERED: fentaNYL citrate PF 100 MCG/2 ML VIAL IV PRN (12:19)
[2023-07-30] MEDS ORDERED: ATROPINE SULFATE 0.1 MG/ML 10ML SYR IV PRN (12:19)
[2023-07-30] MEDS ORDERED: ONDANSETRON INJ 2 MG/ML 2 ML VIAL IV PRN (12:19)
[2023-07-30] MEDS: cefOXitin 2,000 MG in DEXTROSE 5 % MINI-B 50 ML IV ONE (12:26)
--- NOTE | 2023-07-30 12:27 | Hospitalist Progress Note ---
Date of Service July 30, 2023 Assessment & Plan (1) Cholecystitis: Plan: Ceftriaxone + Metronidazole IV NPO IV fluids. Reduce rate to 80 mL an hour as he may get fluid overloaded Pain management - acetaminophen 1g IV 1st line, Dilaudid 0.25-0.5mg IV 2nd line Surgery on board. Plans to take him to the OR today (2) Gastroesophageal reflux disease: Plan: Continue famotidine (3) History of intestinal obstruction: Plan VTE Prophylaxis - Hold pre-operatively Diet - NPO Admission and Anticipated Discharge Date Admission Date: July 29, 2023 Subjective Patient says that his pain is controlled since getting IV pain medications. But is back tender. He says that it hurts in the right side of his belly to take a deep breath in. Review of Systems Review of Systems: All systems reviewed & are unremarkable except as noted in Subjective Physical Exam Physical Exam: General: Awake, conversant Heart: S1, S2/regular rate and rhythm, no murmur rubs or gallops Lungs: Clear to auscultation bilaterally. Normal effort Abdomen: Soft/nontender/nondistended. No hepatosplenomegaly Extremities: No clubbing/cyanosis. No edema Behavior: Appropriate, cooperative Results & Data Results & Data Vital Signs (Past 12 Hours) Vital Signs Temp Pulse Resp BP Pulse Ox O2 Del Method O2 Flow Rate 07/30/23 09:57 Nasal Cannula 2 07/30/23 07:08 37.4 C 85 18 130/74 92 Nasal Cannula 2 07/30/23 02:19 36.8 C 87 18 116/72 90 Nasal Cannula 2 07/30/23 01:04 65 16 92 Nasal Cannula 2 Laboratory Results Abnormal lab results 07/29/23 07/29/23 07/29/23 Range/Units 16:48 17:04 23:08 WBC (4.8-10.8) K/ul RDW Std Deviation 47.5 H (36.4-46.3) fL RDW Coeff of Abdi 15.1 H (11.5-14.5) % Neut # (Auto) (1.40-6.50) K/uL Lymph # (Auto) (1.20-3.40) K/uL [place] # (Auto) 0.94 H (0.11-0.59) K/uL Immature Gran # (Auto) (0.01-0.20) K/uL POC Anion Gap 15.0 L (16-25) mmol/L POC BUN 21 H (7-18) mg/dl BUN/Creatinine Ratio 20.2 H (10-20) Glucose 102 H (70-99(Fasting)) mg/dl POC Glucose (other) 106 H (70-99) mg/dl Lipase (11-82) U/L Ur Specific [place] > 1.045 H (1.000-1.030) Urine Ketones 1+ H (Negative) 07/30/23 Range/Units 06:34 WBC 19.15 H (4.8-10.8) K/ul RDW Std Deviation 48.1 H (36.4-46.3) fL RDW Coeff of Abdi 15.3 H (11.5-14.5) % Neut # (Auto) 16.57 H (1.40-6.50) K/uL Lymph # (Auto) 0.84 L (1.20-3.40) K/uL [place] # (Auto) 1.34 H (0.11-0.59) K/uL Immature Gran # (Auto) 0.37 H (0.01-0.20) K/uL POC Anion Gap (16-25) mmol/L POC BUN (7-18) mg/dl BUN/Creatinine Ratio (10-20) Glucose 127 H (70-99(Fasting)) mg/dl POC Glucose (other) (70-99) mg/dl Lipase 6 L (11-82) U/L Ur Specific [place] (1.000-1.030) Urine Ketones (Negative) PG Care Time/CCT Total # of Minutes Spent Total Time Spent with Patient: Total time spent is greater than 50% in coordination of care (as documented) at patient's floor/unit and/or counseling patient: Coding Level of Care Code 23838 SUB INP/OBS CARE 235MIN Diagnoses Cholecystitis K81.9 Gastroesophageal reflux disease K21.9 History of intestinal obstruction Z87.19
[2023-07-30] MEDS ORDERED: cefOXitin SOD 1,000 MG VIAL ONE (12:54)
[2023-07-30] MEDS ORDERED: SUCCINYLCHOLINE CHLORIDE 20 MG/ML 10 ML VIAL IV ONE (13:06)
[2023-07-30] MEDS ORDERED: ROCURONIUM BROMIDE 10 MG/ML 5 ML VIAL IV ONE ×2 (13:06→14:32)
[2023-07-30] MEDS ORDERED: ALBUMIN HUMAN 5% 12.5 GM/250 ML VIAL IV ONE ×2 (13:23→14:24)
[2023-07-30] MEDS ORDERED: HYDROmorphone INJ 1 MG/ML SYRINGE ONE (13:27)
[2023-07-30] MEDS ORDERED: SODIUM CHLORIDE 0.9% 250 ML IV PRN (13:59)
[2023-07-30 14:05] LABS: Basophils # (auto) 0.05 K/uL (0.00-0.20); Basophils % (auto) 0.2 %; Hematocrit (blood only) 45.1 % (42.0-52.0); Hemoglobin 15.1 g/dl (14.0-18.0); Immature Granulocytes # (auto) 0.13 K/uL (0.01-0.20); Immature Granulocytes % (auto) 0.6 %; Lymphocytes # (auto) 1.25 K/uL (1.20-3.40); Lymphocytes % (auto) 6.1 %; Mean Corpuscular Hemoglobin 29.1 pg (25.0-34.0); Mean Corpuscular Hgb Conc 33.5 g/dL (32.0-36.0); Mean Corpuscular Volume 86.9 fL (80.0-100.0); Monocytes % (auto) 7.4 %; Neutrophils # (auto) 17.45 K/uL (1.40-6.50); Neutrophils % (auto) 85.7 %; Platelet Count 195 K/uL (130-400); RDW Coefficient of Variation 15.3 % (11.5-14.5); Red Blood Count 5.19 M/uL (4.70-6.10); White Blood Count 20.38 K/ul (4.8-10.8)
--- NOTE | 2023-07-30 14:33 | Anesthesia Procedure Note ---
Anesthesia Procedure Note Arterial Line Note Patient medical history, medications, allergies and vitals reviewed Date of procedure: 07/30/23 Consent: Risk / Benefits Reviewed With: Emergency Monitors attached: Blood Pressure, CO2, EKG and Pulse Oximetry Oxygen delivery method: Other (under general anesthesia) Time out completed: Yes Premedication: General anesthesia Laterality: Right Location: Radial Hand hygeine: Soap and water and Alcohol based hand rub Equipment/Supplies: Cap, Mask, Sterile gown, Sterile gloves, Sterile drapes and Sterile procedures used Skin prep: Chloraprep Ultrasound used: Yes US equipment and supplies: Sterile Gel Attempts: 1 Procedure Summary: 20 gauge angiocath advanced until return of bright red blood and needle was advanced beyond the artery using a through and through technique. Needle was removed and catheter withdrawn until return of pulsatile red blood. An arterial wire was advanced through the catheter and into the artery and the catheter was then treaded into place over the wire. The wire was removed and the catheter secured with tape and covered with occlusive dressing. Waveform consistent with correct arterial placement. After placement, normal perfusion was observed distal to the site of catheter placement. Post-Procedure: Pt hemodynamically stable, Pt tolerates well and No complication
[2023-07-30 14:40] LABS: Albumin Globulin Ratio 1.4 (0.9-2); Albumin Level 3.3 gm/dl (3.4-5.0); BUN Creatinine Ratio 19.6 (10-20); Bilirubin,Total 1.2 mg/dl (0.2-1.0); Calcium 8.3 mg/dl (8.6-10.3); Creatinine Clr Calc Pharmacy 66.2 ml/min; Est GFR (African American) 82.2 ml/min; Est GFR (Non-African American) 70.9 ml/min; Globulin 2.3 gm/dl (2.5-4.0); Potassium 4.4 mmol/L (3.5-5.1); Total Protein 5.6 gm/dl (6.0-8.3)
[2023-07-30 14:44] LABS: Fibrinogen 396 mg/dl (184-400); INR 1.3 (0.9-1.1); Prothrombin Time 13.7 Seconds (9.0-12.0)
[2023-07-30] MEDS ORDERED: VANCOMYCIN CONSULT ACTIVE PRN ×2 (15:59)
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
[2023-07-30] MEDS ORDERED: PROPOFOL BOLUS FROM BAG IV PRN (16:29)
[2023-07-30] MEDS ORDERED: STAT IV Infusion **Titration per Protocol STA ×2 (16:29→17:20)
[2023-07-30] MEDS: BUPIVACAINE/EPINEPHRINE 0.5% MPF 1:200,000 30 ML VIAL ONE (16:33)
[2023-07-30] MEDS: PROPOFOL IV EMULSION 10 MG/ML 100 ML VIAL IV ONE (16:43)
[2023-07-30] MEDS: fentaNYL citrate 2,500 MCG/250 ML BAG IV ONE (16:43)
[2023-07-30] MEDS: propofoL 1,000 MG/100 ML VIAL IV SCH (17:06)
[2023-07-30] MEDS: fentaNYL citrate 2,500 MCG/250 ML BAG IV SCH (17:06)
[2023-07-30] MEDS: VANCOMYCIN HCL 2,000 MG in SODIUM CHLORIDE 0.9% 500 ML IV ONE (17:07)
[2023-07-30] MEDS: fentaNYL BOLUS from BAG IV PRN (17:07)
--- NOTE | 2023-07-30 17:18 | Anesthesiology Progress Note ---
Date of Service July 30, 2023 Anesthesia Post Procedure Vital Signs Vital Signs: Temp Pulse Pulse Pulse Resp BP BP 07/30/23 17:05 67 17 07/30/23 17:02 66 18 07/30/23 17:02 115/66 07/30/23 17:00 84/65 L 07/30/23 17:00 66 16 07/30/23 09:57 07/30/23 07:08 37.4 C 85 18 130/74 07/30/23 02:19 36.8 C 87 18 116/72 07/30/23 01:04 65 16 07/29/23 22:54 75 18 132/73 07/29/23 21:30 36.3 C L 71 18 144/81 H 07/29/23 21:00 57 L 20 128/75 07/29/23 20:00 53 L 18 128/75 07/29/23 19:30 54 L 21 130/75 07/29/23 19:01 61 20 136/75 07/29/23 19:00 62 22 07/29/23 18:31 69 19 07/29/23 18:29 64 20 123/79 07/29/23 18:02 66 07/29/23 18:00 65 18 142/75 H 07/29/23 17:29 58 L 7 L 130/71 Pulse Ox O2 Del Method O2 Flow Rate 07/30/23 17:05 94 07/30/23 17:02 93 07/30/23 17:02 07/30/23 17:00 07/30/23 17:00 95 07/30/23 09:57 Nasal Cannula 2 07/30/23 07:08 92 Nasal Cannula 2 07/30/23 02:19 90 Nasal Cannula 2 07/30/23 01:04 92 Nasal Cannula 2 07/29/23 22:54 88 L Room Air 07/29/23 21:30 93 Room Air 07/29/23 21:00 93 Room Air 07/29/23 20:00 93 Room Air 07/29/23 19:30 93 07/29/23 19:01 89 L 07/29/23 19:00 88 L 07/29/23 18:31 87 L 07/29/23 18:29 88 L 07/29/23 18:02 07/29/23 18:00 95 Room Air 07/29/23 17:29 98 Pain Intensity Abdomen: Pain Intensity: 8 Transfer of Care Handoff Completed per policy Notes Mental Status: see notes below Patient Amnestic to Procedure: Yes Nausea / Vomiting: adequately controlled Pain: adequately controlled Airway Patency, RR, SpO2: stable & adequate BP & HR: stable & adequate Hydration State: stable & adequate Anesthetic Complications: no major complications apparent and Pt Satisfied with anesthetic care Notes: Lap liv complicated by necrotic bowel, decision was ramírez to convert to open exploratory lapartomy which proved to be technically difficult given patients extensive abdominal surgery history and adhesions/anatomy. Additional peripheral access as well as arterial monitoring placed intra-op. Intra-op labs stable. Blood loss 400cc and patient resuscitated, off pressors at end of case. Transferred to ICU intubated given large fluid shift, prolonged operation time. hemodynamically stable on arrival. ETT secured at 23cm and respiratory present to transfer patient to ventilator. Further care per ICU.
--- NOTE | 2023-07-30 17:22 | Operative Report ---
PG Post Operative Report Pre & Post Diagnosis Operation Date: 07/30/23 12:00 Pre-Op Diagnosis: ACUTE CHOLECYSTITIS Post-Op Diagnosis: ACUTE CHOLECYSTITIS; extensive adhesions/frozen abdomen; multiple small bowel enterotomies I identified the patient and participated in the time-out.: Yes Procedure Operation Date: 07/30/23 12:00 Actual Procedures p Laparoscopic Cholecystectomy, Convert to exploratory laparotomy, partial small bowel resection, enteroenterostomy, repair of enterotomies x4, extensive enterolysis(Not Applicable) ; difficult case modifier- King Yu DO Surgeon King Yu DO Accounting Technician n/a Estimated Blood Loss 400 Findings Consistent with Post-Op Diagnosis Specimens 1. gallbladder 2. portion of small bowel. Description of Procedure After informed consent was obtained the patient was taken to the operating room and placed in supine position. After successful intubation the abdomen was sterilely prepped and draped in usual fashion. The patient had a large midline incision to the left of the umbilicus. I therefore I made a small incision to the right of the umbilicus with an 11 blade scalpel. This was carried down through the soft tissue using cautery. Anterior fascia was opened using cautery and 2 #0 Vicryl stay sutures were placed. Peritoneum was elevated with hemostats and incised under direct vision using a Metzenbaum scissor. A finger sweep was performed and a 12 mm Kang trocar was placed. I advanced the laparoscope into the abdomen. What I noted almost immediately through the camera itself was some small bowel mucosa that we had inadvertently made an enterotomy during placement of the trocar. There was no bile spillage and therefore I decided to remove the gallbladder before repairing the enterotomy. There was enough space in the right upper quadrant to place 2 right upper quadrant 5 mm trocars and a subxiphoid 12 mm trocar. The gallbladder was g angrenous. I drained some purulent fluid out of the gallbladder with a gallbladder needle so that we could grasp it. We grasped it and elevated superiorly and laterally. I used primarily blunt dissection to free up adhesions around the neck of the gallbladder. I was able to identify the cystic duct and skeletonized it. It was clipped twice proximally and once distally and transected using laparoscopic scissor. In similar fashion I was able to identify the cystic artery. It was clipped and divided as well. The gallbladder was removed from the gallbladder fossa using cautery. It was placed into an Endo Catch bag and removed. Several small bleeding points on the gallbladder fossa were controlled using cautery. Thorough irrigation of the right upper quadrant was performed. There was adequate hemostasis. At this point I inserted a 5 mm camera into one of the right sided ports to evaluate the small bowel enterotomy. What I saw was extensive adhesive disease and there would be no way to free up the small bowel enough laparoscopically to repair of the enterotomy. I therefore made a midline incision to the right of the umbilicus with a 15 blade scalpel. We opened up the fascia and then began tediously taking down adhesions. What I encountered was essentially a frozen abdomen. His protoplasm was poor and his small bowel extremely thin and wispy. With even slight manipulation a new enterotomy would open up. I took several hours to free up the midline adhesions again involving omentum and small bowel. I had to purposely make several enterotomies to get the bowel off of the anterior abdominal wall enough that I could do the repair. Eventually after hours of traction /countertraction blunt finger fractionation and scissor lysis I was able to free up the bowel that I could perform closures of the enterotomies and enteroenterostomy as well as a small bowel resection. There were 4 enterotomies that were less than 20% of the circumference of the bowel. All of these were closed in 2 layers using 3-0 Monocryl in running mucosal/serosal layers followed by 3-0 silk in a Lembert fashion. Once these were repaired there was 1 very large transected portion of small bowel and for this I performed an enteroenterostomy. I used a GUSTAVO brown cartridge linear stapler with 1 arm down each lumen and fired to create the enterostomy. The common enterotomy was closed using 3-0 Monocryl for serosal mucosal layers followed by 3-0 silk in Lembert fashion. I also used 3-[address] a crotch stitch. Finally there was 1 area that had 2 enterotomies very close together and therefore I decided to resect this portion of bowel. I transected the bowel on either side using a GUSTAVO brown cartridge stapler. A LigaSure device was used to take down the mesentery. A [id number] anastomosis was performed using a brown cartridge 60 mm linear stapler. Again the common enterotomy was closed using 3-0 Monocryl for mucosal/serosal layer followed by 3-0 silk in Naveed guy over the top. Again a crotch stitch was placed. We thoroughly irrigated the wound. I was unable to safely get into the left upper quadrant. However I was able to run all of the exposed small bowel from the cecum to the mid jejunum. No other enterotomies were identified. There was no evidence of any ischemia. A final and thorough washout was performed. A 10 flat Derrell-Gibson drain was brought in through one of the port sites and placed in the right upper quadrant secured to the skin using 0 Vicryl. Fascia was closed using #1 PDS in running fashion. Soft tissue was irrigated and the skin was closed using skin jenny over quarter inch Robert drain. Silver dressing was applied. The patient remained intubated and was transferred to the intensive care unit in critical condition. I attest to the content of the Intraoperative Record and any orders documented therein. Any exceptions are noted below.
--- NOTE | 2023-07-30 17:43 | Pharmacy Report ---
Pharmacy PK ABX Note - Date of Service July 30, 2023 - Assessment and Plan Laboratory Tests 07/30/23 13:54 WBC 20.38 H Neut # (Auto) 17.45 H Creatinine 0.97 Est Cr Clr Drug Dosing 66.2 Assessment 83 year old M receiving VANC/CEFEPIME for treatment of GI INF. Day # 1 of antimicrobial therapy. Plan Vancomycin * Loading dose: 2000mg (19mg/kg) IV x 1 * Maintenance dose: 750mg (7mg/kg) IV every 12 hours * Regimen is predicted to achieve target AUC/ELY of 400-600 mg/L.hr Pharmacy will continue to follow and will adjust dose/frequency as necessary. Thank you. Pharmacy has transitioned to AUC monitoring for vancomycin. AUC/ELY is the preferred PK/PD target and is associated with decreased risk of nephrotoxicity compared to traditional trough targets.
[2023-07-30] MEDS: CEFEPIME 2,000 MG in SYRINGE 0 ML IV SCH (17:46)
[2023-07-30] MEDS: NOREPINEPHRINE/D5W 4 MG/250 ML IV ONE (17:59)
[2023-07-30 18:03] LABS: iSTAT Art Bld Gas pCO2 Correct 37 mmHg (35-46); iSTAT Art Bld Gas pH Corrected 7.353 (7.35-7.45); iSTAT Arterial Blood Gas HCO3 21 meg/L (19-24); iSTAT Arterial Blood Gas pCO2 38 mmHg (35-46); iSTAT Arterial Blood Gas pH 7.34 (7.35-7.45); iSTAT Arterial Blood Gas pO2 67 mmHg (80-95); iSTAT Arterial Blood Gas pO2 C 64; iSTAT Carbon Dioxide 22 mmol/L (24-31); iSTAT FiO2 60 %; iSTAT Hematocrit 38 % (42-52); iSTAT Hemoglobin 12.9 g/dl (14.0-18.0); iSTAT Potassium 3.8 mmol/L (3.3-5.0); iSTAT Site Art Line; iSTAT Sodium 136 mmol/L (135-144)
--- NOTE | 2023-07-30 18:03 | XRay Report ---
SINGLE VIEW CHEST CLINICAL HISTORY: Respiratory failure. Intubation. FINDINGS: 2 AP, portable, supine chest radiographs are compared to study dated 07/29/2023 and correlate d with chest CT dated 01/12/2019. An endotracheal tube has been placed. The tip projects approximatel y 4.5 cm above the cally. An enteric tube has been placed. The tip projects below the diaphragm over the proximal to mid stomach. The heart is enlarged. There is pulmonary vascular congestion. Postsurg ical changes again seen at the left apex. There are layering pleural effusions with dependent consoli dation. No pneumothorax is seen. The skeletal structures are osteopenic. The bony thorax is grossly i ntact. Degenerative change is noted in the shoulders. Cholecystectomy clips, skin clips, and a surgic al drain project over the right upper quadrant. IMPRESSION: 1. Endotracheal and enteric tubes have been placed as above. 2. Cardiomegaly with evidence of fluid overload/congestive failure. 3. Layering pleural effusions with dependent consolidation. ACT 112: Negative or not required by law. Electronically signed by: Behzad Parmar M.D. 07/30/2023 6:02 PM
[2023-07-30] MEDS ORDERED: cefTRIAXone SODIUM 2,000 MG/50 ML BAG IV SCH (20:00)
[2023-07-30] MEDS: NOREPINEPHRINE/D5W 4 MG/250 ML PLCT IV SCH (20:33)
[2023-07-31] MEDS: VANCOMYCIN HCL 750 MG in SODIUM CHLORIDE 0.9% 250 ML IV SCH (03:18)
[2023-07-31 04:52] LABS: Albumin Globulin Ratio 1.4 (0.9-2); Albumin Level 2.7 gm/dl (3.4-5.0); BUN Creatinine Ratio 23.4 (10-20); Calcium 7.5 mg/dl (8.6-10.3); Creatinine Clr Calc Pharmacy 70.1 ml/min; Est GFR (African American) 85.3 ml/min; Est GFR (Non-African American) 73.6 ml/min; Magnesium 1.4 mg/dl (1.7-2.4); Phosphorus 2.3 mg/dl (2.5-4.9); Potassium 4.4 mmol/L (3.5-5.1); Total Protein 4.7 gm/dl (6.0-8.3)
[2023-07-31 05:04] LABS: iSTAT Art Bld Gas pCO2 Correct 39 mmHg (35-46); iSTAT Art Bld Gas pH Corrected 7.365 (7.35-7.45); iSTAT Arterial Blood Gas HCO3 22 meg/L (19-24); iSTAT Arterial Blood Gas pCO2 39 mmHg (35-46); iSTAT Arterial Blood Gas pH 7.36 (7.35-7.45); iSTAT Arterial Blood Gas pO2 81 mmHg (80-95); iSTAT Arterial Blood Gas pO2 C 79; iSTAT Carbon Dioxide 23 mmol/L (24-31); iSTAT FiO2 40 %; iSTAT Hematocrit 38 % (42-52); iSTAT Hemoglobin 12.9 g/dl (14.0-18.0); iSTAT Potassium 4.1 mmol/L (3.3-5.0); iSTAT Site Art Line; iSTAT Sodium 137 mmol/L (135-144)
--- NOTE | 2023-07-31 05:37 | Surgery Progress Note ---
Date of Service July 31, 2023 Assessment & Plan (1) Cholecystitis: Plan: Patient is status post laparoscopic cholecystectomy with conversion to exploratory laparotomy/partial small bowel resection and repair of enterotomies along with extensive lysis of adhesions on 07/30/2023 (postop day #1) Due to extensive nature and complex his surgery he has remained intubated since his surgery Ventilator management/extubation plans as directed by it consulting director service Wean pressor support as blood pressure will tolerate Maintain on antibiotics in the form of cefepime, vancomycin, and Flagyl Continue intravenous fluids Maintain CRICKET drain to self suction Maintain OG tube in place while patient is ventilated Continue to monitor urine output Check a.m. labs when available Commence mobilization efforts once patient able to be extubated as above. doing ok so far. CRICKET serous/pink. pt at very high risk for enterotomy repair failure...keep strict npo/ngt even once extubated. Admission and Anticipated Discharge Date Admission Date: July 29, 2023 Subjective Patient is currently lying in bed. He is intubated and sedated. I did discuss with the nurse attending to the patient. The patient has required Levophed throughout the night for blood pressure support. He has been afebrile throughout the night. She notes that he has had minimal output from his OG tube. She notes that his CRICKET drain has drained approximately 30 cc total of serosanguineous fluid. She notes that his urine output has been approximately 60 to 100 cc every 2 hours. No return of bowel function since surgery. No administration of blood products has been required she does not identify any other acute surgical issues at this time Physical Exam Respiratory: Breath sounds are present and aided with the ventilator Cardiovascular: Rate/Rhythm: regular rate and regular rhythm Left radial pulses palpable. Right radial artery has waveform with arterial line in place Feet are cool and nonmottled. I am unable to palpate any pedal pulses. Gastrointestinal (Abdomen): Abdomen is rotund. It is nonrigid. Bowel sounds are absent. Neurologic: Unable to assess neurologic exam as patient is intubated and sedated with propofol and fentanyl Genitourinary: Steiner catheter is in place and appears to be patent Results & Data Vital Signs (Past 12 Hours) Vital Signs Temp Pulse Resp BP Pulse Ox O2 Del Method FiO2 07/31/23 04:00 40 07/31/23 04:00 67 100/57 L 07/31/23 03:50 70 18 95 30 07/31/23 01:45 37.3 C 74 18 95 07/31/23 01:45 86/50 L 07/31/23 01:31 37.3 C 69 18 95 07/31/23 01:15 37.2 C 68 18 95 07/31/23 01:15 106/74 07/31/23 01:00 86/55 L 07/31/23 01:00 37.3 C 76 18 95 07/31/23 00:45 88/54 L 07/31/23 00:45 37.3 C 71 18 95 07/31/23 00:30 37.3 C 72 18 96 07/31/23 00:30 93/56 L 07/31/23 00:15 37.2 C 71 18 95 07/31/23 00:15 94/54 L 07/31/23 00:00 97/61 L 07/31/23 00:00 37.2 C 70 18 96 07/31/23 00:00 69 07/31/23 00:00 70 102/53 L 07/31/23 00:00 40 07/30/23 23:45 37.2 C 71 18 95 07/30/23 23:45 90/55 L 07/30/23 23:30 95/56 L 07/30/23 23:30 37.2 C 74 18 96 07/30/23 23:15 37.1 C 74 18 95 07/30/23 23:15 97/59 L 07/30/23 23:00 37.1 C 74 18 96 07/30/23 22:45 95/61 L 07/30/23 22:45 37.0 C 73 18 95 07/30/23 22:30 98/61 L 07/30/23 22:30 37.0 C 68 18 96 07/30/23 22:18 69 18 96 40 07/30/23 22:16 37.0 C 71 18 95 07/30/23 22:15 96/54 L 07/30/23 22:13 36.9 C 68 18 97 07/30/23 22:01 36.9 C 66 18 97 07/30/23 22:00 94/60 L 07/30/23 21:59 36.9 C 67 18 96 07/30/23 21:46 36.9 C 66 18 96 07/30/23 21:45 96/62 L 07/30/23 21:44 36.9 C 67 18 96 07/30/23 21:30 36.9 C 66 18 97 07/30/23 21:30 99/60 L 07/30/23 21:15 36.9 C 67 18 97 07/30/23 21:15 97/62 L 07/30/23 21:05 36.9 C 67 18 97 07/30/23 20:45 Mechanical Vent 60 07/30/23 20:45 36.8 C 64 18 97 07/30/23 20:37 36.8 C 62 18 97 07/30/23 19:31 34.2 C L 71 17 96 07/30/23 19:30 92/57 L 07/30/23 19:29 34.3 C L 72 18 99 07/30/23 19:29 68 18 97 50 07/30/23 19:15 96/58 L 07/30/23 19:15 36.6 C 67 18 97 07/30/23 19:00 36.5 C 67 18 97 07/30/23 19:00 92/53 L 07/30/23 18:30 36.4 C L 66 18 94/58 L 94 Mechanical Vent 60 07/30/23 18:15 36.3 C L 66 18 92/59 L 93 Mechanical Vent 60 07/30/23 18:00 36.3 C L 68 18 94 Mechanical Vent 60 07/30/23 18:00 60 07/30/23 18:00 Mechanical Vent 60 07/30/23 17:44 36.3 C L 68 18 87/54 L 93 Mechanical Vent 60 07/30/23 17:30 36.2 C L 68 18 91/57 L 93 Mechanical Vent 60 PG Care Time/CCT Total # of Minutes Spent Total Time Spent with Patient: Total time spent is greater than 50% in coordination of care (as documented) at patient's floor/unit and/or counseling patient: Coding Level of Care Code 21296 Post Operative Follow-Up Diagnoses Cholecystitis K81.9
[2023-07-31 05:41] LABS: Hematocrit (blood only) 40.1 % (42.0-52.0); Hemoglobin 13.3 g/dl (14.0-18.0); Mean Corpuscular Hgb Conc 33.2 g/dL (32.0-36.0); Mean Corpuscular Volume 87.6 fL (80.0-100.0); Mean Platelet Volume 10.6 fL (9.4-12.4); Platelet Count 184 K/uL (130-400); RDW Coefficient of Variation 15.5 % (11.5-14.5); RDW Standard Deviation 49.2 fL (36.4-46.3); Red Blood Count 4.58 M/uL (4.70-6.10); White Blood Count 10.38 K/ul (4.8-10.8)
[2023-07-31] MEDS: MAGNESIUM SULFATE / D5W 1 GM/100 ML BAG IV SCH (06:20)
--- NOTE | 2023-07-31 07:51 | XRay Report ---
XR chest 1V portable HISTORY: Resp failure COMPARISON: Chest 07/30/2023. FINDINGS: Endotracheal tube terminates approximately 5.7 cm from the cally. Nasogastric tube termina loretta within the mid stomach. This remains unchanged. There is an additional catheter within the mid es ophagus which is unchanged in position. This may represent a thermometer. No pneumothorax. The heart remains enlarged. Small bilateral pleural effusions and bibasilar densities persist. There is mild pu lmonary vascular congestion without overt edema. This has slightly improved. There are suture materia l within the left upper lobe. Degenerative changes within the shoulders. IMPRESSION: 1. Satisfactory support line placement. 2. Cardiomegaly with mild pulmonary vascular congestion and small bilateral pleural effusions. 3. Patchy bibasilar densities persist. ACT 112: Negative or not required by law. Electronically signed by: Emir Velazquez M.D. 07/31/2023 7:50 AM
[2023-07-31] MEDS: DEXTROSE 5% 1,000 ML IV SCH (10:00)
[2023-07-31] MEDS: PLASMA-LYTE A 1,000 ML IV SCH (10:00)
--- NOTE | 2023-07-31 10:12 | Critical Care Progress Note ---
Date of Service July 31, 2023 Assessment & Plan (1) Endotracheally intubated: (2) Status post laparotomy: (3) Cholecystitis: (4) Shock: Plan 83-year-old male with a history of GERD, small bowel obstruction, prior atrial fibrillation and allergic rhinitis who presented with acute cholecystitis and underwent an emergent laparoscopic cholecystectomy which was then converted to an exploratory laparotomy given extensive disease in the peritoneum. He was transferred to the ICU postoperatively intubated and sedated. Neurologic: Will continue with propofol and fentanyl for agitation and pain, respectively. Daily sedation vacations as able. Consult anesthesiology for possible transabdominal plane block prior to extubation per general surgery recommendations. Pulmonary: Intubated with size 8.0 endotracheal tube. Minimal ventilator requirements at this time. Chest x-ray reviewed from 07/31/2023 which reveals cardiomegaly and mild pulmonary vascular congestions with small bilateral effusions. Patchy bilateral atelectasis Cardiovascular: Hold antihypertensives. History of atrial fibrillation. Monitor telemetry. Radial arterial line in place with good waveform. Gastrointestinal: Status post laparotomy with cholecystectomy. NG tube management and surgical management deferred to general surgical team. Patient will likely need TPN in the near future. May need placement of PICC line. Renal: Monitor urine output closely via Steiner catheter. Start Plasma-Lyte at 50 cc/hr and D5W at 50 cc an hour. Infectious disease: DC vancomycin. Continue cefepime and Flagyl. Gram-negative rods growing from gallbladder fluid. Hematologic: Mild postoperative anemia noted. No role for transfusion at this time Endocrine: Maintain euglycemia. Lines and tubes: PIV's and Steiner catheter in place VTE prophylaxis: Hold chemoprophylaxis at this time given postop day 1 for laparotomy. Okay for SCDs CODE STATUS: Full Family at bedside: Not available at bedside Disposition: ICU I have personally spent 42 minutes of critical care time in the direct management of this patient. This is a life/limb threatening event. This includes time spent evaluating patient, direct bedside care, chart review, placing orders, interpretation of diagnostic studies, discussion with consultants, patient, and family members, as well as other required patient management activities. This time is exclusive of all separately billable procedures, and teaching time and separate from and in addition to any other critical care service time. Thank you for allowing us to participate in the care of this patient. Admission and Anticipated Discharge Date Admission Date: July 29, 2023 Subjective No major events overnight. Patient requires continued low-dose Levophed. Urine output has been adequate. ROS unobtainable as the patient is currently intubated and sedated with propofol and fentanyl. Physical Exam Physical Exam: Constitutional: Patient appears to be of their stated age. Elderly appearing male who is currently intubated and sedated. Eyes: Pupils are equal round and reactive to light. Conjunctivae are normal. Anicteric sclera. Ears nose, mouth and throat: 8.[address]. NG tube in place. Neck: Trachea is midline. Visual inspection is normal. Respiratory: Clear to auscultation bilaterally. No use of accessory muscles. No significant clubbing noted. Cardiovascular: Regular rate and rhythm. No murmurs. No edema. Gastrointestinal: Large laparotomy incision noted with drains present. Dressings in place. Musculoskeletal: No cyanosis. Patient is able to move all extremities. Strength is 5 out of 5 in the upper and lower extremities. Skin: No rashes, warm dry and intact. Neurologic: Difficult to fully assess as he is currently sedated. No obvious deficits at the moment. Psychiatric: Unable to assess as he is currently sedated. Results & Data Results & Data Vital Signs (Past 12 Hours) Vital Signs Temp Pulse Resp BP Pulse Ox O2 Del Method FiO2 07/31/23 08:15 66 18 94/60 L 93 Mechanical Vent 30 07/31/23 08:00 Mechanical Vent 30 07/31/23 08:00 30 07/31/23 08:00 67 107/58 L 07/31/23 07:56 67 18 93 30 07/31/23 07:45 62 18 100/57 L 94 Mechanical Vent 30 07/31/23 07:30 64 18 99/61 L 94 Mechanical Vent 30 07/31/23 07:15 64 18 90/60 L 94 Mechanical Vent 40 07/31/23 07:01 67 18 91/56 L 93 Mechanical Vent 40 07/31/23 07:01 36.6 C 07/31/23 05:15 101/60 07/31/23 05:15 36.6 C 67 18 95 07/31/23 05:00 36.7 C 64 18 95 07/31/23 05:00 94/55 L 07/31/23 04:45 36.7 C 63 18 96 07/31/23 04:45 104/66 07/31/23 04:30 36.8 C 69 18 96 07/31/23 04:30 97/57 L 07/31/23 04:15 36.9 C 69 18 96 07/31/23 04:15 101/57 L 07/31/23 04:00 37.0 C 69 18 95 07/31/23 04:00 93/57 L 07/31/23 04:00 40 07/31/23 04:00 67 100/57 L 07/31/23 03:50 70 18 95 30 07/31/23 03:45 84/49 L 07/31/23 03:43 37.0 C 69 18 96 07/31/23 03:30 37.1 C 72 18 95 07/31/23 03:01 37.1 C 67 18 97 07/31/23 03:00 105/70 07/31/23 02:59 37.1 C 76 18 96 07/31/23 02:45 90/52 L 07/31/23 02:45 37.1 C 67 18 96 07/31/23 02:30 97/55 L 07/31/23 02:30 37.2 C 68 18 96 07/31/23 02:15 86/52 L 07/31/23 02:15 37.2 C 69 18 96 07/31/23 02:01 37.3 C 70 18 96 07/31/23 02:00 93/53 L 07/31/23 01:59 37.3 C 70 18 96 07/31/23 01:45 37.3 C 74 18 95 07/31/23 01:45 86/50 L 07/31/23 01:31 37.3 C 69 18 95 07/31/23 01:15 37.2 C 68 18 95 07/31/23 01:15 106/74 07/31/23 01:00 86/55 L 07/31/23 01:00 37.3 C 76 18 95 07/31/23 00:45 88/54 L 07/31/23 00:45 37.3 C 71 18 95 07/31/23 00:30 37.3 C 72 18 96 07/31/23 00:30 93/56 L 07/31/23 00:15 37.2 C 71 18 95 07/31/23 00:15 94/54 L 07/31/23 00:00 97/61 L 07/31/23 00:00 37.2 C 70 18 96 07/31/23 00:00 69 07/31/23 00:00 70 102/53 L 07/31/23 00:00 40 07/30/23 23:45 37.2 C 71 18 95 07/30/23 23:45 90/55 L 07/30/23 23:30 95/56 L 07/30/23 23:30 37.2 C 74 18 96 07/30/23 23:15 37.1 C 74 18 95 07/30/23 23:15 97/59 L 07/30/23 23:00 37.1 C 74 18 96 07/30/23 22:45 95/61 L 07/30/23 22:45 37.0 C 73 18 95 07/30/23 22:30 98/61 L 07/30/23 22:30 37.0 C 68 18 96 07/30/23 22:18 69 18 96 40 07/30/23 22:16 37.0 C 71 18 95 07/30/23 22:15 96/54 L 07/30/23 22:13 36.9 C 68 18 97 Coding Level of Care Code 35948 CRITICAL CARE 1ST 30-74M Diagnoses Endotracheally intubated Z97.8 Status post laparotomy Z98.890 Cholecystitis K81.9 Shock R57.9 Time Spent (min) 42
--- NOTE | 2023-07-31 12:33 | Hospitalist Progress Note ---
Date of Service July 31, 2023 Assessment & Plan (1) Shock: Plan: Most likely septic shock versus hemorrhagic shock post surgery Currently on pressors Antihypertensives held Antibiotic coverage broadened to include vancomycin, Flagyl, cefepime (2) Endotracheally intubated: Plan: Critical care managing vent (3) Status post laparotomy: Plan: Initially patient was thought to have acute cholecystitis. Went to the OR for laparoscopic cholecystectomy was converted to exploratory laparotomy, bowel resection. Surgery on board Plan is for anesthesiology to do a transabdominal block prior to extubation for pain control Continue with propofol and fentanyl for now CRICKET drain in place OG tube in place (4) Cholecystitis: Plan: Status post gallbladder removal On antibiotics that we will cover (5) Gastroesophageal reflux disease: Plan: Continue famotidine (6) History of intestinal obstruction: Plan: History of small bowel obstruction in the past Plan VTE Prophylaxis - Hold pre-operatively Diet - NPO Admission and Anticipated Discharge Date Admission Date: July 29, 2023 Subjective Patient went to the OR yesterday. Initially started out with a laparoscopic cholecystectomy, converted into exploratory laparotomy, small bowel resection. Patient went to the ICU postoperatively. Currently intubated, sedated, on pressors Review of Systems Review of Systems: Unobtainable due to endotracheal tube Physical Exam Physical Exam: General: Intubated, sedated Heart: S1, S2/regular rate and rhythm, no murmur rubs or gallops Lungs: Good air entry bilaterally. No adventitious breath sounds heart Abdomen: Dressing on. CRICKET drain in place Extremities: No clubbing/cyanosis. No edema Behavior: Unable to assess due to intubation Results & Data Results & Data Vital Signs (Past 12 Hours) Vital Signs Temp Pulse Resp BP Pulse Ox O2 Del Method FiO2 07/31/23 11:22 70 18 93 30 07/31/23 10:14 67 19 96/59 L 93 Mechanical Vent 30 07/31/23 10:00 63 18 97/58 L 94 Mechanical Vent 30 07/31/23 09:45 69 18 95/57 L 94 Mechanical Vent 30 07/31/23 09:30 68 18 97/58 L 93 Mechanical Vent 30 07/31/23 09:15 68 18 95/57 L 94 Mechanical Vent 30 07/31/23 09:00 64 18 98/64 L 94 Mechanical Vent 30 07/31/23 08:30 65 18 100/57 L 93 Mechanical Vent 30 07/31/23 08:15 66 18 94/60 L 93 Mechanical Vent 30 07/31/23 08:00 Mechanical Vent 30 07/31/23 08:00 30 07/31/23 08:00 67 107/58 L 07/31/23 07:56 67 18 93 30 07/31/23 07:45 62 18 100/57 L 94 Mechanical Vent 30 07/31/23 07:30 64 18 99/61 L 94 Mechanical Vent 30 07/31/23 07:15 64 18 90/60 L 94 Mechanical Vent 40 07/31/23 07:01 67 18 91/56 L 93 Mechanical Vent 40 07/31/23 07:01 36.6 C 07/31/23 05:15 101/60 07/31/23 05:15 36.6 C 67 18 95 07/31/23 05:00 36.7 C 64 18 95 07/31/23 05:00 94/55 L 07/31/23 04:45 36.7 C 63 18 96 07/31/23 04:45 104/66 07/31/23 04:30 36.8 C 69 18 96 07/31/23 04:30 97/57 L 07/31/23 04:15 36.9 C 69 18 96 07/31/23 04:15 101/57 L 07/31/23 04:00 37.0 C 69 18 95 07/31/23 04:00 93/57 L 07/31/23 04:00 40 07/31/23 04:00 67 100/57 L 07/31/23 03:50 70 18 95 30 07/31/23 03:45 84/49 L 07/31/23 03:43 37.0 C 69 18 96 07/31/23 03:30 37.1 C 72 18 95 07/31/23 03:01 37.1 C 67 18 97 07/31/23 03:00 105/70 07/31/23 02:59 37.1 C 76 18 96 07/31/23 02:45 90/52 L 07/31/23 02:45 37.1 C 67 18 96 07/31/23 02:30 97/55 L 07/31/23 02:30 37.2 C 68 18 96 07/31/23 02:15 86/52 L 07/31/23 02:15 37.2 C 69 18 96 07/31/23 02:01 37.3 C 70 18 96 07/31/23 02:00 93/53 L 07/31/23 01:59 37.3 C 70 18 96 07/31/23 01:45 37.3 C 74 18 95 07/31/23 01:45 86/50 L 07/31/23 01:31 37.3 C 69 18 95 07/31/23 01:15 37.2 C 68 18 95 07/31/23 01:15 106/74 07/31/23 01:00 86/55 L 07/31/23 01:00 37.3 C 76 18 95 07/31/23 00:45 88/54 L 07/31/23 00:45 37.3 C 71 18 95 07/31/23 00:30 37.3 C 72 18 96 07/31/23 00:30 93/56 L Laboratory Results Abnormal lab results 07/30/23 07/30/23 07/30/23 Range/Units 13:54 14:22 17:50 WBC 20.38 H (4.8-10.8) K/ul RBC (4.70-6.10) M/uL Hgb (14.0-18.0) g/dl POC Hgb 12.9 L (14.0-18.0) g/dl Hct (42.0-52.0) % POC Hct 38 L (42-52) % RDW Std Deviation 49.0 H (36.4-46.3) fL RDW Coeff of Abdi 15.3 H (11.5-14.5) % Neut # (Auto) 17.45 H (1.40-6.50) K/uL Elk # (Auto) 1.50 H (0.11-0.59) K/uL PT 13.7 H (9.0-12.0) Seconds INR 1.3 H (0.9-1.1) POC pH 7.34 L (7.35-7.45) POC pO2 67 L (80-95) mmHg POC Total CO2 22 L (24-31) mmol/L Sodium (136-145) mmol/L Chloride (98-107) mmol/L BUN/Creatinine Ratio (10-20) Glucose 135 H (70-99(Fasting)) mg/dl POC Glucose (70-99) mg/dl POC Glucose (other) (70-99) mg/dl Calcium 8.3 L (8.6-10.3) mg/dl Phosphorus (2.5-4.9) mg/dl Magnesium (1.7-2.4) mg/dl Total Bilirubin 1.2 H (0.2-1.0) mg/dl Total Protein 5.6 L (6.0-8.3) gm/dl Albumin 3.3 L (3.4-5.0) gm/dl Globulin 2.3 L (2.5-4.0) gm/dl Crossmatch See Detail 07/30/23 07/31/23 07/31/23 Range/Units 23:57 04:01 04:50 WBC (4.8-10.8) K/ul RBC 4.58 L (4.70-6.10) M/uL Hgb 13.3 L (14.0-18.0) g/dl POC Hgb 12.9 L (14.0-18.0) g/dl Hct 40.1 L (42.0-52.0) % POC Hct 38 L (42-52) % RDW Std Deviation 49.2 H (36.4-46.3) fL RDW Coeff of Abdi 15.5 H (11.5-14.5) % Neut # (Auto) (1.40-6.50) K/uL Elk # (Auto) (0.11-0.59) K/uL PT (9.0-12.0) Seconds INR (0.9-1.1) POC pH (7.35-7.45) POC pO2 (80-95) mmHg POC Total CO2 23 L (24-31) mmol/L Sodium 135 L (136-145) mmol/L Chloride 108 H (98-107) mmol/L BUN/Creatinine Ratio 23.4 H (10-20) Glucose 168 H (70-99(Fasting)) mg/dl POC Glucose (70-99) mg/dl POC Glucose (other) 163 H (70-99) mg/dl Calcium 7.5 L (8.6-10.3) mg/dl Phosphorus 2.3 L (2.5-4.9) mg/dl Magnesium 1.4 L (1.7-2.4) mg/dl Total Bilirubin (0.2-1.0) mg/dl Total Protein 4.7 L (6.0-8.3) gm/dl Albumin 2.7 L (3.4-5.0) gm/dl Globulin 2.0 L (2.5-4.0) gm/dl Crossmatch 07/31/23 Range/Units 12:03 WBC (4.8-10.8) K/ul RBC (4.70-6.10) M/uL Hgb (14.0-18.0) g/dl POC Hgb (14.0-18.0) g/dl Hct (42.0-52.0) % POC Hct (42-52) % RDW Std Deviation (36.4-46.3) fL RDW Coeff of Abdi (11.5-14.5) % Neut # (Auto) (1.40-6.50) K/uL Elk # (Auto) (0.11-0.59) K/uL PT (9.0-12.0) Seconds INR (0.9-1.1) POC pH (7.35-7.45) POC pO2 (80-95) mmHg POC Total CO2 (24-31) mmol/L Sodium (136-145) mmol/L Chloride (98-107) mmol/L BUN/Creatinine Ratio (10-20) Glucose (70-99(Fasting)) mg/dl POC Glucose 133 H (70-99) mg/dl POC Glucose (other) (70-99) mg/dl Calcium (8.6-10.3) mg/dl Phosphorus (2.5-4.9) mg/dl Magnesium (1.7-2.4) mg/dl Total Bilirubin (0.2-1.0) mg/dl Total Protein (6.0-8.3) gm/dl Albumin (3.4-5.0) gm/dl Globulin (2.5-4.0) gm/dl Crossmatch Diagnostic Findings Chest X-Ray 07/30/23 17:13 SINGLE VIEW CHEST CLINICAL HISTORY: Respiratory failure. Intubation. FINDINGS: 2 AP, portable, supine chest radiographs are compared to study dated 07/29/2023 and correlated with chest CT dated 01/12/2019. An endotracheal tube has been placed. The tip projects approximately 4.5 cm above the cally. An enteric tube has been placed. The tip projects below the diaphragm over the proximal to mid stomach. The heart is enlarged. There is pulmonary vascular congestion. Postsurgical changes again seen at the left apex. There are layering pleural effusions with dependent consolidation. No pneumothorax is seen. The skeletal structures are osteopenic. The bony thorax is grossly intact. Degenerative change is noted in the shoulders. Cholecystectomy clips, skin clips, and a surgical drain project over the right upper quadrant. IMPRESSION: 1. Endotracheal and enteric tubes have been placed as above. 2. Cardiomegaly with evidence of fluid overload/congestive failure. 3. Layering pleural effusions with dependent consolidation. ACT 112: Negative or not required by law. Electronically signed by: Behzad Parmar M.D. 07/30/2023 6:02 PM Chest X-Ray 07/31/23 07:00 XR chest 1V portable HISTORY: Resp failure COMPARISON: Chest 07/30/2023. FINDINGS: Endotracheal tube terminates approximately 5.7 cm from the cally. Nasogastric tube terminates within the mid stomach. This remains unchanged. There is an additional catheter within the mid esophagus which is unchanged in position. This may represent a thermometer. No pneumothorax. The heart remains enlarged. Small bilateral pleural effusions and bibasilar densities persist. There is mild pulmonary vascular congestion without overt edema. This has slightly improved. There are suture material within the left upper lobe. Degenerative changes within the shoulders. IMPRESSION: 1. Satisfactory support line placement. 2. Cardiomegaly with mild pulmonary vascular congestion and small bilateral pleural effusions. 3. Patchy bibasilar densities persist. ACT 112: Negative or not required by law. Electronically signed by: Emir Velazquez M.D. 07/31/2023 7:50 AM PG Care Time/CCT Total # of Minutes Spent Total Time Spent with Patient: Total time spent is greater than 50% in coordination of care (as documented) at patient's floor/unit and/or counseling patient: Coding Level of Care Code 30696 SUB INP/OBS CARE 2/35MIN Diagnoses Shock R57.9 Endotracheally intubated Z97.8 Status post laparotomy Z98.890 Cholecystitis K81.9 Gastroesophageal reflux disease K21.9 History of intestinal obstruction Z87.19
--- OUTSIDE RECORDS SUMMARY | 2023-07-31 20:45 | External Medical Summary | Continuity of Care Document ---
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 COMPLAINT: Right hip and groin pain H[facility] today forevaluation of right hip and groin pain. Patient complains of right hip and groin pain primarily with activity or working outside. He is considering surgery but would like to wait for the fall as he and his are in the process of moving. He denies discomfort with sleeping. He has previously received trochanteric bursa injections with good success. His last injection was November 2022. PHYSICAL EXAM: Focus on the right lower extremity: Femoral and sciatic nerve function intact. Slightly antalgic gait No tenderness to palpation Intact active hip ROM Hip ROM: Flexion 100 / external rotation of around 25 to 30 / internal rotation to neutral before pain onset DIAGNOSTIC REVIEW: Previous x-rays of the right hip reveals end-stage degenerative disease with subchondral cysts on the femoral head. IMPRESSION: Right hip OA PLAN: Process started to schedule surgery for right RACHANA Follow-up as needed ATTESTATION: Philomena Darling, scribing for and in the presence of, Connor De Leon, on this date,07/04/2023 09:37:20. Electronic Signature on File Electronically Reviewed/Signed by: Philomena Retana Author Signature Dt/Tm:07/04/2023 09:52 AM Electronically Reviewed/Signed by: Philomena Retana Cosigner Signature Dt/Tm: 07/04/2023 09:54 AM Electronically Reviewed/Signed by: Connor De Leon MD Cosigner Signature Dt/Tm: 07/04/2023 11:53 AM Audio/Visual Operator for Clinical Affairs, [facility] Liz Professor in Orthopaedics Count Team Member, [facility] Sports Medicine Patient Care team information Care Team Personnel Name: Antonio Knutson Todd Position: Pharmacist Schedule II Member Role: Pharmacy - Lifetime Address: Address: [address] [place] [id number] [place] Name: MD Huerta Joseph P Position: Physician - Family Med Member Role: Primary Care Provider Address: Address: [address] [facility] [address] [place] [address] [place] Care Team Related Persons Name: LYLE BILLINGSLEY Address: home [address] [place] [phone]
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
--- NOTE | 2023-07-31 22:01 | Electrocardiogram Report ---
Test Reason : Blood Pressure : / mmHG Vent. Rate : 053 BPM Atrial Rate : 053 BPM P-R Int : 164 ms QRS Dur : 096 ms QT Int : 438 ms P-R-T Axes : 046 -09 029 degrees QTc Int : 410 ms Sinus bradycardia Cannot rule out Inferior infarct (cited on or before 29-JUL-2023) Abnormal ECG When compared with ECG of 17-APR-2023 14:07, Vent. rate has decreased BY 35 BPM Confirmed by Seun De Jesus ([id number]) on 07/31/2023 10:01:17 PM Referred By: REFERRED SELF Confirmed By:Seun De Jesus
[2023-08-01 04:40] LABS: Hematocrit (blood only) 37.1 % (42.0-52.0); Hemoglobin 12.4 g/dl (14.0-18.0); Mean Corpuscular Hemoglobin 28.7 pg (25.0-34.0); Mean Corpuscular Hgb Conc 33.4 g/dL (32.0-36.0); Mean Corpuscular Volume 85.9 fL (80.0-100.0); Mean Platelet Volume 10.9 fL (9.4-12.4); Platelet Count 158 K/uL (130-400); RDW Coefficient of Variation 15.5 % (11.5-14.5); RDW Standard Deviation 48.9 fL (36.4-46.3); Red Blood Count 4.32 M/uL (4.70-6.10); White Blood Count 10.68 K/ul (4.8-10.8)
[2023-08-01 04:59] LABS: Calcium 7.5 mg/dl (8.6-10.3); Creatinine Clr Calc Pharmacy 82.3 ml/min; Est GFR (African American) 94.4 ml/min; Est GFR (Non-African American) 81.5 ml/min; Magnesium 2.1 mg/dl (1.7-2.4); Phosphorus 1.7 mg/dl (2.5-4.9); Potassium 3.7 mmol/L (3.5-5.1)
[2023-08-01 05:28] LABS: iSTAT Art Bld Gas pCO2 Correct 37 mmHg (35-46); iSTAT Arterial Blood Gas HCO3 22 meg/L (19-24); iSTAT Arterial Blood Gas pCO2 37 mmHg (35-46); iSTAT Arterial Blood Gas pH 7.38 (7.35-7.45); iSTAT Arterial Blood Gas pO2 63 mmHg (80-95); iSTAT Arterial Blood Gas pO2 C 63; iSTAT Carbon Dioxide 23 mmol/L (24-31); iSTAT FiO2 30 %; iSTAT Hematocrit 38 % (42-52); iSTAT Hemoglobin 12.9 g/dl (14.0-18.0); iSTAT Potassium 3.5 mmol/L (3.3-5.0); iSTAT Site Art Line; iSTAT Sodium 134 mmol/L (135-144)
[2023-08-01] MEDS ORDERED: POTASSIUM PHOS 3 MMOL/1 ML INFUSION IV STA ×2 (06:33→19:39)
[2023-08-01] MEDS: POTASSIUM PHOSPHATE 21 MMOL in SODIUM CHLORIDE 0.9% 500 ML IV ONE (07:05)
--- NOTE | 2023-08-01 07:41 | XRay Report ---
XR chest 1V portable HISTORY: Respiratory failure. COMPARISON: Chest 07/31/2023. FINDINGS: Endotracheal tube terminates 5.7 cm from the cally. Nasogastric tube terminates in the sto mach. There is an additional catheter overlying the mid esophagus likely representing at the gallblad garrison. This remains unchanged in position. No pneumothorax. Suture material within the left upper lobe again noted. There is cardiomegaly and mild interstitial pulmonary edema. This has slightly progresse d. Small bilateral pleural effusions and bibasilar densities persist. IMPRESSION: 1. Satisfactory support line placement. 2. Cardiomegaly with mild interstitial pulmonary edema and small bilateral pleural effusions. This rodriguez s slightly progressed. 3. Patchy bibasilar densities again noted. ACT 112: Negative or not required by law. Electronically signed by: Emir Velazquez M.D. 08/01/2023 7:40 AM
--- NOTE | 2023-08-01 08:53 | Surgery Progress Note ---
Date of Service August 01, 2023 Assessment & Plan (1) Status post laparotomy: Plan: pod 2 still on 1 pressor but pressures improving plan is to extubate today hopefully after TAP block nothing to add surgically. pt almost certainly will have a severe ileus. keep NG T Admission and Anticipated Discharge Date Admission Date: July 29, 2023 Subjective pt sedated on vent Physical Exam Physical Exam: sedated on vent wound looks great CRICKET with scant pink/serous output minimal out of NGT Results & Data Vital Signs (Past 12 Hours) Vital Signs Temp Pulse Resp BP Pulse Ox O2 Del Method FiO2 08/01/23 08:27 86 08/01/23 07:45 37.0 C 85 18 94 Mechanical Vent 30 08/01/23 07:35 81 18 94 30 08/01/23 07:31 37.0 C 84 18 94 Mechanical Vent 30 08/01/23 07:15 37.1 C 81 18 94 Mechanical Vent 30 08/01/23 07:12 37.1 C 82 18 94 Mechanical Vent 08/01/23 07:00 Mechanical Vent 30 08/01/23 07:00 30 08/01/23 05:30 37.3 C 91 H 18 94 08/01/23 05:00 37.1 C 89 18 94 08/01/23 04:30 37.1 C 86 18 95 08/01/23 04:00 37.2 C 83 18 95 08/01/23 04:00 93/53 L 08/01/23 04:00 30 08/01/23 04:00 88 103/53 L 08/01/23 03:30 37.2 C 86 18 95 08/01/23 03:00 105/57 L 08/01/23 03:00 37.2 C 85 18 95 08/01/23 02:30 37.2 C 87 18 95 08/01/23 02:27 87 18 97 30 08/01/23 02:00 37.2 C 89 18 96 30 08/01/23 02:00 109/58 L 08/01/23 01:30 37.1 C 87 18 94 08/01/23 01:00 37.1 C 91 H 18 94 30 08/01/23 01:00 107/57 L 08/01/23 00:30 37.1 C 88 18 94 08/01/23 00:22 37.0 C 83 18 95 08/01/23 00:00 87 08/01/23 00:00 30 08/01/23 00:00 88 113/60 07/31/23 23:35 87 18 94 30 07/31/23 23:30 37.0 C 83 18 94 07/31/23 23:00 112/63 07/31/23 23:00 37.1 C 89 18 95 07/31/23 22:30 37.1 C 85 18 94 07/31/23 22:00 114/56 L 07/31/23 22:00 37.1 C 87 18 94 07/31/23 21:31 37.0 C 87 18 93 07/31/23 21:01 37.0 C 85 18 94 PG Care Time/CCT Total # of Minutes Spent Total Time Spent with Patient: Total time spent is greater than 50% in coordination of care (as documented) at patient's floor/unit and/or counseling patient: Coding Level of Care Code 50857 Post Operative Follow-Up Diagnoses Status post laparotomy Z98.890
--- NOTE | 2023-08-01 09:24 | Anesthesia Procedure Note ---
Anesthesia Procedure Note Peripheral Nerve Block Note Date of procedure: 08/01/23 Indication: Postoperative pain contol (Better pain control prior to extubation as patient is intubated and sedated in ICU. ) Consent: Risk / Benefits Reviewed With: PT / POA / Parent / Guardian, Accepts Plan, Informed Consent Obtained and All Questions Answered Monitors attached: Blood Pressure, CO2, EKG and Pulse Oximetry Oxygen delivery method: Other (ETT) Time out completed: Yes Premedication: Other (Patient on propofol and fentanyl in ICU for sedation as he is intubated and sedated. ) Laterality: Right Position: Supine Surgical Prep: Hand hygeine: Alcohol based hand rub Equipment/Supplies: Cap, Mask, Sterile gloves, Sterile drapes and Sterile procedures used Skin prep: Chloraprep Block: TAP Needle: 21g x 3.5 inch [employer] Ultrasound used: Yes US equipment and supplies: Sterile Gel and Sterile Probe Cover Anesthetic: 0.5% Bupivicaine (ml) Additives: None Attempts: 1 Procedure Summary: Sterile technique employed with sterile towels and drapes. Each side had different sterile setup. Easily placed b/l TAPs blocks under ultrasound guidance with 10ml of 0.5% bupivicaine mixed with 5ml of 1.33% exparel (total of 30ml). VSS. No complications. Patient's signed consent on his behalf given that he was intubated and sedated. Post-procedure: Pt hemodynamically stable, Pt tolerates well and No complications
[2023-08-01] MEDS ORDERED: BUPIVACAINE 0.5 % 5 MG/1 ML PF 10ML VIAL ONE (10:29)
[2023-08-01] MEDS ORDERED: Nursing to Pharmacy Communication SCH (12:15)
--- NOTE | 2023-08-01 13:22 | Hospitalist Progress Note ---
Date of Service August 01, 2023 Assessment & Plan (1) Shock: Plan: Most likely septic shock versus hemorrhagic shock post surgery Currently on pressors, titrating down Antihypertensives held Antibiotic coverage broadened to include Flagyl, cefepime (2) Endotracheally intubated: Plan: Critical care managing vent Hopeful for extubation today (3) Status post laparotomy: Plan: Initially patient was thought to have acute cholecystitis. Went to the OR for laparoscopic cholecystectomy was converted to exploratory laparotomy, bowel resection. Surgery on board Continue with propofol and fentanyl for now CRICKET drain in place OG tube in place (4) Cholecystitis: Plan: Status post gallbladder removal On antibiotics that we will cover (5) Gastroesophageal reflux disease: Plan: Continue famotidine (6) History of intestinal obstruction: Plan: History of small bowel obstruction in the past Plan VTE Prophylaxis on hold in the postoperative phase. SCDs Diet - NPO Admission and Anticipated Discharge Date Admission Date: July 29, 2023 Subjective Per nurse, patient is now on pressure support. He is requiring less pressors. The plan is to try to wean to extubate today. Review of Systems Review of Systems: Unobtainable due to endotracheal tube Physical Exam Physical Exam: General: Intubated, sedated Heart: S1, S2/regular rate and rhythm, no murmur rubs or gallops Lungs: Good air entry bilaterally. No adventitious breath sounds heart Abdomen: Dressing on. CRICKET drain in place Extremities: No clubbing/cyanosis. No edema Behavior: Unable to assess due to intubation Results & Data Results & Data Vital Signs (Past 12 Hours) Vital Signs Temp Pulse Resp BP Pulse Ox O2 Del Method FiO2 08/01/23 12:10 92 H 16 94 30 08/01/23 12:00 37.2 C 92 H 22 121/67 96 Mechanical Vent 30 08/01/23 11:45 37.1 C 90 18 93 Mechanical Vent 30 08/01/23 11:30 37.1 C 91 H 18 93 Mechanical Vent 30 08/01/23 11:20 90 19 93 30 08/01/23 11:15 37.1 C 88 18 94 Mechanical Vent 30 08/01/23 11:00 37.2 C 88 18 92 Mechanical Vent 30 08/01/23 11:00 30 08/01/23 10:53 37.4 C 89 21 92 Mechanical Vent 30 08/01/23 10:30 37.3 C 85 18 94 Mechanical Vent 30 08/01/23 10:15 37.1 C 82 18 93 Mechanical Vent 30 08/01/23 10:00 37.3 C 87 18 103/56 L 93 Mechanical Vent 30 08/01/23 09:45 37.2 C 92 H 18 94 Mechanical Vent 30 08/01/23 09:40 37.0 C 89 18 93 Mechanical Vent 08/01/23 08:45 37.1 C 87 18 93 Mechanical Vent 30 08/01/23 08:30 37.0 C 87 18 93 Mechanical Vent 30 08/01/23 08:27 86 08/01/23 08:15 37.0 C 85 18 94 Mechanical Vent 30 08/01/23 08:00 36.9 C 84 18 101/60 93 Mechanical Vent 30 08/01/23 07:45 37.0 C 85 18 94 Mechanical Vent 08/01/23 07:35 81 18 94 30 08/01/23 07:31 37.0 C 84 18 94 Mechanical Vent 08/01/23 07:15 37.1 C 81 18 94 Mechanical Vent 08/01/23 07:12 37.1 C 82 18 94 Mechanical Vent 08/01/23 07:00 Mechanical Vent 30 08/01/23 07:00 30 08/01/23 05:30 37.3 C 91 H 18 94 08/01/23 05:00 37.1 C 89 18 94 08/01/23 04:30 37.1 C 86 18 95 08/01/23 04:00 37.2 C 83 18 95 08/01/23 04:00 93/53 L 08/01/23 04:00 30 08/01/23 04:00 88 103/53 L 08/01/23 03:30 37.2 C 86 18 95 08/01/23 03:00 105/57 L 08/01/23 03:00 37.2 C 85 18 95 08/01/23 02:30 37.2 C 87 18 95 08/01/23 02:27 87 18 97 30 08/01/23 02:00 37.2 C 89 18 96 08/01/23 02:00 109/58 L 08/01/23 01:30 37.1 C 87 18 94 Laboratory Results Abnormal lab results 07/31/23 07/31/23 08/01/23 Range/Units 18:01 23:46 04:21 RBC 4.32 L (4.70-6.10) M/uL Hgb 12.4 L (14.0-18.0) g/dl POC Hgb (14.0-18.0) g/dl Hct 37.1 L (42.0-52.0) % POC Hct (42-52) % RDW Std Deviation 48.9 H (36.4-46.3) fL RDW Coeff of Abdi 15.5 H (11.5-14.5) % POC pO2 (80-95) mmHg POC Total CO2 (24-31) mmol/L POC Sodium (135-144) mmol/L Sodium 132 L (136-145) mmol/L Glucose 153 H (70-99(Fasting)) mg/dl POC Glucose 132 H (70-99) mg/dl POC Glucose (other) 168 H (70-99) mg/dl Calcium 7.5 L (8.6-10.3) mg/dl Phosphorus 1.7 L (2.5-4.9) mg/dl 08/01/23 08/01/23 Range/Units 05:02 11:20 RBC (4.70-6.10) M/uL Hgb (14.0-18.0) g/dl POC Hgb 12.9 L (14.0-18.0) g/dl Hct (42.0-52.0) % POC Hct 38 L (42-52) % RDW Std Deviation (36.4-46.3) fL RDW Coeff of Abdi (11.5-14.5) % POC pO2 63 L (80-95) mmHg POC Total CO2 23 L (24-31) mmol/L POC Sodium 134 L (135-144) mmol/L Sodium (136-145) mmol/L Glucose (70-99(Fasting)) mg/dl POC Glucose 121 H (70-99) mg/dl POC Glucose (other) (70-99) mg/dl Calcium (8.6-10.3) mg/dl Phosphorus (2.5-4.9) mg/dl PG Care Time/CCT Total # of Minutes Spent Total Time Spent with Patient: Total time spent is greater than 50% in coordination of care (as documented) at patient's floor/unit and/or counseling patient: Coding Level of Care Code 94891 SUB INP/OBS CARE 2/35MIN Diagnoses Shock R57.9 Endotracheally intubated Z97.8 Status post laparotomy Z98.890 Cholecystitis K81.9 Gastroesophageal reflux disease K21.9 History of intestinal obstruction Z87.19
--- NOTE | 2023-08-01 14:15 | Critical Care Progress Note ---
Date of Service August 01, 2023 Assessment & Plan (1) Endotracheally intubated: (2) Status post laparotomy: (3) Cholecystitis: (4) Shock: Plan Impression: 83-year-old male with a history of GERD, small bowel obstruction, prior atrial fibrillation and allergic rhinitis who presented with acute cholecystitis and underwent an emergent laparoscopic cholecystectomy which was then converted to an exploratory laparotomy given extensive disease in the peritoneum. He was transferred to the ICU postoperatively intubated and sedated. 24-hour events: Patient remained intubated. He underwent transabdominal blocks by anesthesia earlier today. Sedation was held. He tolerated spontaneous breathing trial without difficulty. Remains mildly encephalopathic but is able to follow some commands at this point in time. He tolerated an SBT this morning and is hemodynamically stable and was just extubated. Recommendations: Neurologic: Off sedatives now. Will transition to as needed pushes of fentanyl and see how he does with pain management with anesthesia. Acute pain service consultation may be required if he continues to have issues. Hopefully his sensorium will clear over time. No indication for advanced imaging or additional workup at this point in time. At risk for gabapentin withdrawal. He is on 500 mg 3 times a day. May consider restarting once enteric access is approved Pulmonary: Liberated from the mechanical ventilator. Pulmonary toilet. Wean oxygen as tolerated. Cardiovascular: Prior history of atrial fibrillation. Anticoagulation on hold. He appears hemodynamically stable currently and tachycardic. If blood pressures hold may start low-dose beta-soheila, was on metoprolol 25 twice a day as an outpatient. If unable to take p.o., initiation of esmolol infusion might be appropriate Gastrointestinal: Status post laparotomy with cholecystectomy. NG tube management and surgical management deferred to general surgical team. Recommend deferring TPN until the patient has been n.p.o. for 7 days per [place] guidelines (JPEN 40:2, 159-211). Drain management per surgery. Renal: Monitor urine output closely via Steiner catheter. ICU electrolyte replacement pr otocol placed. Keep IV fluids to match intake and output Infectious disease: Currently day #2 cefepime and Flagyl. Gallbladder growing Klebsiella pneumoniae (pansensitive) and Clostridium perfringens. Given polymicrobial infection, will add empiric antifungal therapy (caspofungin). Pharmacy to dose. Follow cultures with low threshold for formal ID consultation Hematologic: Mild postoperative anemia noted. No role for transfusion at this time Endocrine: Glycemic protocol per ICU Lines and tubes: PIV's and Steiner catheter in place VTE prophylaxis: SCDs. Okay to start subcu heparin. High risk for VTE CODE STATUS: Full Family at bedside: Family updated at bedside. Disposition: ICU Patient is critically ill with multiorgan system dysfunction and high risk of clinical deterioration. Total of 49 minutes in critical care time was spent in evaluation management coordinating care for this complex medical patient. Admission and Anticipated Discharge Date Admission Date: July 29, 2023 Subjective Patient seen and examined. Discussed with off going medical records field technician and with overnight critical care ADRIEL as well as on multidisciplinary rounds and with bedside critical care nurse. Patient remains intubated and sedated on a low-dose of pressor this morning Review of Systems Review of Systems: Unobtainable due to endotracheal tube Physical Exam Constitutional: WD/WN, vitals as above + mechanically ventilated Neck: trachea midline, no thyromegaly Respiratory: normal respiratory effort, lungs clear to auscultation Cardiovascular: RRR, no murmur, no edema Gastrointestinal (Abdomen): normal bowel sounds, soft, nontender, no hepatosplenomegaly Musculoskeletal: Extremities: extremities normal to inspection Skin: no rashes, warm and dry Neurologic: Patient is awake. He is able to squeeze hands bilaterally. He is able to lift his head up off the pillow. Lymphatic: no cervical lymphadenopathy Results & Data Results & Data Vital Signs (Past 12 Hours) Vital Signs Temp Pulse Resp BP Pulse Ox O2 Del Method FiO2 08/01/23 12:10 92 H 16 94 30 08/01/23 12:00 37.2 C 92 H 22 121/67 96 Mechanical Vent 30 08/01/23 11:45 37.1 C 90 18 93 Mechanical Vent 30 08/01/23 11:30 37.1 C 91 H 18 93 Mechanical Vent 30 08/01/23 11:20 90 19 93 30 08/01/23 11:15 37.1 C 88 18 94 Mechanical Vent 30 08/01/23 11:00 37.2 C 88 18 92 Mechanical Vent 30 08/01/23 11:00 30 08/01/23 10:53 37.4 C 89 21 92 Mechanical Vent 30 08/01/23 10:30 37.3 C 85 18 94 Mechanical Vent 30 08/01/23 10:15 37.1 C 82 18 93 Mechanical Vent 30 08/01/23 10:00 37.3 C 87 18 103/56 L 93 Mechanical Vent 30 08/01/23 09:45 37.2 C 92 H 18 94 Mechanical Vent 30 08/01/23 09:40 37.0 C 89 18 93 Mechanical Vent 30 08/01/23 08:45 37.1 C 87 18 93 Mechanical Vent 30 08/01/23 08:30 37.0 C 87 18 93 Mechanical Vent 30 08/01/23 08:27 86 08/01/23 08:15 37.0 C 85 18 94 Mechanical Vent 30 08/01/23 08:00 36.9 C 84 18 101/60 93 Mechanical Vent 30 08/01/23 07:45 37.0 C 85 18 94 Mechanical Vent 30 08/01/23 07:35 81 18 94 30 08/01/23 07:31 37.0 C 84 18 94 Mechanical Vent 30 08/01/23 07:15 37.1 C 81 18 94 Mechanical Vent 30 08/01/23 07:12 37.1 C 82 18 94 Mechanical Vent 30 08/01/23 07:00 Mechanical Vent 30 08/01/23 07:00 30 08/01/23 05:30 37.3 C 91 H 18 94 08/01/23 05:00 37.1 C 89 18 94 08/01/23 04:30 37.1 C 86 18 95 08/01/23 04:00 37.2 C 83 18 95 08/01/23 04:00 93/53 L 08/01/23 04:00 30 08/01/23 04:00 88 103/53 L 08/01/23 03:30 37.2 C 86 18 95 08/01/23 03:00 105/57 L 08/01/23 03:00 37.2 C 85 18 95 08/01/23 02:30 37.2 C 87 18 95 08/01/23 02:27 87 18 97 30 Critical Care Results & Data Vital Signs (Past 12 Hours) Vital Signs Temp Pulse Resp BP Pulse Ox O2 Del Method FiO2 08/01/23 12:10 92 H 16 94 30 08/01/23 12:00 37.2 C 92 H 22 121/67 96 Mechanical Vent 30 08/01/23 11:45 37.1 C 90 18 93 Mechanical Vent 30 08/01/23 11:30 37.1 C 91 H 18 93 Mechanical Vent 30 08/01/23 11:20 90 19 93 30 08/01/23 11:15 37.1 C 88 18 94 Mechanical Vent 08/01/23 11:00 37.2 C 88 18 92 Mechanical Vent 08/01/23 11:00 30 08/01/23 10:53 37.4 C 89 21 92 Mechanical Vent 08/01/23 10:30 37.3 C 85 18 94 Mechanical Vent 08/01/23 10:15 37.1 C 82 18 93 Mechanical Vent 08/01/23 10:00 37.3 C 87 18 103/56 L 93 Mechanical Vent 08/01/23 09:45 37.2 C 92 H 18 94 Mechanical Vent 08/01/23 09:40 37.0 C 89 18 93 Mechanical Vent 08/01/23 08:45 37.1 C 87 18 93 Mechanical Vent 08/01/23 08:30 37.0 C 87 18 93 Mechanical Vent 08/01/23 08:27 86 08/01/23 08:15 37.0 C 85 18 94 Mechanical Vent 08/01/23 08:00 36.9 C 84 18 101/60 93 Mechanical Vent 08/01/23 07:45 37.0 C 85 18 94 Mechanical Vent 08/01/23 07:35 81 18 94 08/01/23 07:31 37.0 C 84 18 94 Mechanical Vent 08/01/23 07:15 37.1 C 81 18 94 Mechanical Vent 08/01/23 07:12 37.1 C 82 18 94 Mechanical Vent 08/01/23 07:00 Mechanical Vent 08/01/23 07:00 30 08/01/23 05:30 37.3 C 91 H 18 94 08/01/23 05:00 37.1 C 89 18 94 08/01/23 04:30 37.1 C 86 18 95 08/01/23 04:00 37.2 C 83 18 95 08/01/23 04:00 93/53 L 08/01/23 04:00 30 08/01/23 04:00 88 103/53 L 08/01/23 03:30 37.2 C 86 18 95 08/01/23 03:00 105/57 L 08/01/23 03:00 37.2 C 85 18 95 08/01/23 02:30 37.2 C 87 18 95 08/01/23 02:27 87 18 97 30 Lab & Micro Results (Past 24 Hours) RBC 4.32 M/uL (4.70-6.10) L 08/01/23 WBC 10.68 K/ul (4.8-10.8) 08/01/23 Hgb 12.4 g/dl (14.0-18.0) L 08/01/23 Hct 37.1 % (42.0-52.0) L 08/01/23 MCV 85.9 fL (80.0-100.0) 08/01/23 MCH 28.7 pg (25.0-34.0) 08/01/23 MCHC 33.4 g/dL (32.0-36.0) 08/01/23 RDW Standard Deviation 48.9 fL (36.4-46.3) H 08/01/23 RDW Coefficient of Variation 15.5 % (11.5-14.5) H 08/01/23 Plt Count 158 K/uL (130-400) 08/01/23 MPV 10.9 fL (9.4-12.4) 08/01/23 Na 132 mmol/L (136-145) L 08/01/23 K 3.7 mmol/L (3.5-5.1) 08/01/23 Cl 103 mmol/L (98-107) 08/01/23 CO2 25 mmol/L (21-32) 08/01/23 Anion Gap 4 (3-11) 08/01/23 BUN 16 mg/dl (6-23) 08/01/23 Creatinine 0.80 mg/dl (0.6-1.4) 08/01/23 Estimated GFR ( Amer) 94.4 ml/min 08/01/23 Estimated GFR (Non-Af Amer) 81.5 ml/min 08/01/23 BUN/Creatinine Ratio 20.0 (10-20) 08/01/23 Glu 153 mg/dl (70-99(Fasting)) H 08/01/23 Ca 7.5 mg/dl (8.6-10.3) L 08/01/23 Phosphorus Level 1.7 mg/dl (2.5-4.9) L 08/01/23 Mg 2.1 mg/dl (1.7-2.4) 08/01/23 04:21 Calcium Level 7.5 mg/dl (8.6-10.3) L 08/01/23 04:21 Jimmie Test NA 08/01/23 05:02 Microbiology 07/30/23 12:39 Gram Stain - Final Gallbladder Fluid Aerobic and Anaerobic Culture - Preliminary Klebsiella pneumoniae Clostridium perfringens Diagnostic Findings (Past 24 Hours) Chest X-Ray 08/01/23 07:00 XR chest 1V portable HISTORY: Respiratory failure. COMPARISON: Chest 07/31/2023. FINDINGS: Endotracheal tube terminates 5.7 cm from the cally. Nasogastric tube terminates in the stomach. There is an additional catheter overlying the mid esophagus likely representing at the gallbladder. This remains unchanged in position. No pneumothorax. Suture material within the left upper lobe again noted. There is cardiomegaly and mild interstitial pulmonary edema. This has slightly progressed. Small bilateral pleural effusions and bibasilar densities persist. IMPRESSION: 1. Satisfactory support line placement. 2. Cardiomegaly with mild interstitial pulmonary edema and small bilateral pleural effusions. This has slightly progressed. 3. Patchy bibasilar densities again noted. ACT 112: Negative or not required by law. Electronically signed by: Emir Velazquez M.D. 08/01/2023 7:40 AM I & O Totals 24 Hours 07/31/23 08/01/23 08/02/23 06:59 06:59 06:59 Intake Total 8105.451 / 8105.451 4734.381 / 4734.381 944.717 / 944.717 Output Total 1095 / 1095 1682 / 1682 975 / 975 Balance 7010.451 / 7010.451 3052.381 / 3052.381 -30.283 / -30.283 Cumulative 07/29/23 15:36 thru 08/01/23 13:10 Intake Total 61446.549 Output Total 4552 Balance 9982.549 RT Ventilator Mngmt (Last Documented) Ventilator Ordered Settings Ventilator Support Mode CPAP 08/01/23 12:10 Respiratory Rate 16 08/01/23 12:10 Ventilator Tidal Volume 450 08/01/23 11:20 Setting Minute Ventilation 8.6 08/01/23 12:10 Ventilator Positive Pressure 5 08/01/23 12:10 Support Setting Positive End Expiratory 5 08/01/23 12:10 Pressure Fraction of Inspired Oxygen 30 08/01/23 12:10 Machine Comment weaned peep to 5 08/01/23 12:10 Ventilator - PT Measurements Respiratory Rate 16 Exhaled Tidal Volume 482 Minute Ventilation 8.6 Peak Inspiratory Airway 21 Pressure Plateau Pressure 17 Respiratory Cycle Inspiratory: 1:2.7 Expiratory Ratio Inspiratory Phase Time 0.83 End-Tidal CO2 31 Static Lung Compliance 50.33 Dynamic Lung Compliance 34.85 Normal Static Lung Compliance 48.00 Patient Measurements Comment breath sounds were coarse, cleared with suctioning Coding Level of Care Code 32813 CRITICAL CARE 1ST 30-74M Diagnoses Endotracheally intubated Z97.8 Status post laparotomy Z98.890 Cholecystitis K81.9 Shock R57.9
[2023-08-01] MEDS: CASPOFUNGIN 70 MG in SODIUM CHLORIDE 0.9% 250 ML IV STA (14:47)
[2023-08-01] MEDS: FUROSEMIDE INJ 20 MG/2 ML VIAL IV ONE (16:52)
--- NOTE | 2023-08-01 16:58 | XRay Report ---
XR chest 1V portable HISTORY: Difficulty breathing COMPARISON: Chest 08/01/2023. FINDINGS: Endotracheal tube has been removed. Nasogastric tube terminates in the stomach. No pneumoth orax. Low lung volumes. The heart remains enlarged. Suture material again noted within the left upper lobe. Cardiomegaly with mild pulmonary edema and small bilateral pleural effusions. This is similar to the prior study. Small bibasilar densities also persist. IMPRESSION: 1. Status post extubation. 2. The nasogastric tube terminates in the stomach. 3. Cardiomegaly, mild interstitial pulmonary edema, and small bilateral effusions persist. 4. Patchy bibasilar densities remain unchanged. ACT 112: Negative or not required by law. Electronically signed by: Emir Velazquez M.D. 08/01/2023 4:56 PM
[2023-08-01] MEDS: METOPROLOL TARTRATE 1 MG/ML VIAL IV SCH (17:06)
[2023-08-01] MEDS: METOPROLOL TARTRATE 1 MG/ML VIAL IV ONE (17:14)
[2023-08-01 17:26] LABS: iSTAT Art Bld Gas pCO2 Correct 39 mmHg (35-46); iSTAT Art Bld Gas pH Corrected 7.397 (7.35-7.45); iSTAT Arterial Blood Gas HCO3 24 meg/L (19-24); iSTAT Arterial Blood Gas pCO2 38 mmHg (35-46); iSTAT Arterial Blood Gas pO2 61 mmHg (80-95); iSTAT Arterial Blood Gas pO2 C 63; iSTAT Carbon Dioxide 25 mmol/L (24-31); iSTAT Hematocrit 36 % (42-52); iSTAT Hemoglobin 12.2 g/dl (14.0-18.0); iSTAT Potassium 3.5 mmol/L (3.3-5.0); iSTAT Site Art Line; iSTAT Sodium 137 mmol/L (135-144)
[2023-08-01 18:26] LABS: Magnesium 1.9 mg/dl (1.7-2.4); Phosphorus 1.7 mg/dl (2.5-4.9); Potassium 3.8 mmol/L (3.5-5.1)
[2023-08-01] MEDS: ICU ELECTROLYTE REPLACEMENT PROTOCOL SCH (18:40)
[2023-08-01] MEDS: MAGNESIUM SULFATE / D5W 1 GM/100 ML BAG IV ONE (20:02)
[2023-08-01] MEDS: MoRPHine SULFATE 2 MG/ML CARP IV PRN (20:03)
[2023-08-01] MEDS: POTASSIUM PHOSPHATE 15 MMOL in SODIUM CHLORIDE 0.9% 250 ML IV ONE (20:04)
[2023-08-01] MEDS: OPTIRAY 320 100ml IV ONE (22:35)
[2023-08-01 23:12] LABS: Basophils # (auto) 0.03 K/uL (0.00-0.20); Basophils % (auto) 0.3 %; Eosinophils # (auto) 0.02 K/uL (0.00-0.50); Eosinophils % (auto) 0.2 %; Immature Granulocytes # (auto) 0.08 K/uL (0.01-0.20); Immature Granulocytes % (auto) 0.7 %; Lymphocytes # (auto) 1.01 K/uL (1.20-3.40); Lymphocytes % (auto) 8.9 %; Monocytes # (auto) 0.89 K/uL (0.11-0.59); Monocytes % (auto) 7.8 %; Neutrophils # (auto) 9.33 K/uL (1.40-6.50); Neutrophils % (auto) 82.1 %; White Blood Count 11.36 K/ul (4.8-10.8)
[2023-08-01 23:30] LABS: Albumin Level 2.2 gm/dl (3.4-5.0); BUN Creatinine Ratio 19.4 (10-20); Bilirubin,Total 0.9 mg/dl (0.2-1.0); Calcium 7.2 mg/dl (8.6-10.3); Creatinine Clr Calc Pharmacy 99.8 ml/min; Est GFR (African American) 101.5 ml/min; Est GFR (Non-African American) 87.6 ml/min; Globulin 2.1 gm/dl (2.5-4.0); Potassium 3.8 mmol/L (3.5-5.1); Total Protein 4.3 gm/dl (6.0-8.3)
--- NOTE | 2023-08-02 01:00 | CT Scan Report ---
Exam(s): CT ABDOMEN + PELVIS With Contrast IV Amt: 95ml optiray 320 EXAM: CT Abdomen and Pelvis With Intravenous Contrast CLINICAL HISTORY: Reason for exam: Abdominal pain, bile leak from incision. TECHNIQUE: Axial computed tomography images of the abdomen and pelvis with intravenous contrast. Automated exposure control was utilized for the study. A dose lowering technique was utilized adhering to the principles of ALARA. CONTRAST: Patient received 95ml optiray 320 of IV contrast COMPARISON: No relevant prior studies available. FINDINGS: Lung bases: Dependent airspace consolidations at the lung bases, correlate for aspiration pneumonia versus postoperative atelectasis. ABDOMEN: Liver: Scattered hepatic low attenuation cystic lesions. Largest measures approximately 4.4 x 3.2 cm and contains calcifications. Gallbladder and bile ducts: Recent open cholecystectomy. Free air in the abdomen, likely postoperative in etiology. Mild edema in the gallbladder fossa, if there is concern for bile leak, recommend HIDA scan. No ductal dilation. Pancreas: Unremarkable. No mass. No ductal dilation. Spleen: Unremarkable. No splenomegaly. Adrenals: Unremarkable. No mass. Kidneys and ureters: Renal cysts. No hydronephrosis. Stomach and bowel: Unremarkable. No obstruction. No mucosal thickening. PELVIS: Appendix: No findings to suggest acute appendicitis. Bladder: Steiner catheter terminates in the urinary bladder. Reproductive: Unremarkable as visualized. ABDOMEN and PELVIS: Intraperitoneal space: See above. Bones/joints: LEFT hip arthroplasty. No acute fracture. No dislocation. Soft tissues: Unremarkable. Vasculature: Unremarkable. No abdominal aortic aneurysm. Lymph nodes: Unremarkable. No enlarged lymph nodes. Tubes, lines and devices: Cutaneous skin jenny with cutaneous drainage catheter. Surgical drain is present in the RIGHT upper quadrant however, not within the gallbladder fossa. IMPRESSION: 1. Recent open cholecystectomy. Free air in the abdomen, likely postoperative in etiology. Mild edema in the gallbladder fossa, if there is concern for bile leak, recommend HIDA scan. 2. Dependent airspace consolidations at the lung bases, correlate for aspiration pneumonia versus postoperative atelectasis. 3. Surgical drain is present in the RIGHT upper quadrant however, not within the gallbladder fossa. Electronically signed by: Shaggy Kowalski MD 08/02/23 00:59 AM
--- NOTE | 2023-08-02 01:04 | Communication Note ---
Date of Service: August 02, 2023 I was notified by ICU staff that patient appeared to have bilious drainage from his midline incision. Patient was visited at bedside where he was noted to be hemodynamically stable with a blood pressure of approximately 119/63. Patient's pulse was normal and 75-85 range. Nursing staff did note the patient did have some increasing oxygen requirements. Patient was otherwise noted to be stable. The patient was seen and examined at bedside and he did have green/bilious drainage coming from his midline incision. Due to these findings the patient underwent a CT scan of the abdomen and pelvis. This showed the patient had postoperative findings consistent with a recent open cholecystectomy with some free air in the abdomen which is felt to be likel y postoperative etiology. There is edema in the gallbladder fossa. CT scan was reviewed with Dr. Narayanan. It was not felt that the CT scan had any findings necessitating emergent surgical intervention. Due to the patient's increasing oxygen requirements nursing staff did place the patient on BiPAP and he has remained stable since this has been initiated. The patient remains n.p.o. since his surgery which we will continue.
[2023-08-02 05:07] LABS: Hematocrit (blood only) 35.2 % (42.0-52.0); Hemoglobin 12.3 g/dl (14.0-18.0); Mean Corpuscular Hemoglobin 29.3 pg (25.0-34.0); Mean Corpuscular Hgb Conc 34.9 g/dL (32.0-36.0); Mean Corpuscular Volume 83.8 fL (80.0-100.0); Mean Platelet Volume 10.8 fL (9.4-12.4); Platelet Count 185 K/uL (130-400); RDW Coefficient of Variation 15.5 % (11.5-14.5); RDW Standard Deviation 46.7 fL (36.4-46.3); White Blood Count 12.14 K/ul (4.8-10.8)
[2023-08-02 05:30] LABS: BUN Creatinine Ratio 22.4 (10-20); Calcium 7.6 mg/dl (8.6-10.3); Creatinine Clr Calc Pharmacy 113.1 ml/min; Est GFR (African American) 107.8 ml/min; Potassium 3.7 mmol/L (3.5-5.1)
[2023-08-02 06:26] LABS: Magnesium 2.2 mg/dl (1.7-2.4); Phosphorus 1.4 mg/dl (2.5-4.9)
[2023-08-02] MEDS ORDERED: POTASSIUM PHOS 3 MMOL/1 ML INFUSION IV STA ×3 (06:30→19:57)
[2023-08-02] MEDS: POTASSIUM PHOSPHATE 15 MMOL in SODIUM CHLORIDE 0.9% 250 ML IV ONE ×3 (06:46→20:45)
[2023-08-02] MEDS: FUROSEMIDE 40 MG/4 ML VIAL IV ONE ×2 (06:46→22:17)
[2023-08-02] MEDS: ONDANSETRON INJ 2 MG/ML 2 ML VIAL IV PRN (08:18)
--- NOTE | 2023-08-02 08:21 | Surgery Progress Note ---
Date of Service August 02, 2023 Assessment & Plan (1) Status post laparotomy: Plan: stable /doing ok. pt likely leaking from one of the enterotomies , anastomosis, or developing a fistula. This is not surprising to me considering the state of the abdomen/bowel intra-operatively. hopefully all of the bile will come to surface as re-operation is not an option. 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 will remove several jenny at point of drainage and monitor. At some point after doing better will likely need PICC with anticipated long TPN treatment to try and close fistula. if it becomes high output may consider octreotide. so far low output but will monitor. Admission and Anticipated Discharge Date Admission Date: July 29, 2023 Subjective pt seen. extubated/off pressors. events of last night noted/discussed with our PA Rikki Ly. pt awake/alert though mildly confused. Physical Exam Physical Exam: alert. nad. mildly confused abd: soft. CRICKET scant/serous output. midline incision intact. very mild erythema. dressing clean with only small spot of bloody drainage. Results & Data Vital Signs (Past 12 Hours) Vital Signs Temp Pulse Pulse Pulse Resp BP BP 08/02/23 07:55 87 142/61 H 08/02/23 07:49 37.0 C 91 H 15 124/66 08/02/23 07:42 93 H 18 08/02/23 07:00 93 H 08/02/23 06:00 83 18 08/02/23 04:31 83 128/51 L 08/02/23 04:16 95 H 160/66 H 08/02/23 04:15 94 H 21 08/02/23 04:01 36.9 C 89 26 H 08/02/23 04:00 131/61 08/02/23 04:00 92 H 21 08/02/23 03:59 85 44 H 08/02/23 03:01 81 33 H 08/02/23 03:00 130/65 08/02/23 02:59 84 24 08/02/23 02:31 85 18 08/02/23 02:00 106/49 L 08/02/23 02:00 81 18 08/02/23 01:30 84 20 08/02/23 01:00 87 18 08/02/23 00:45 98 H 17 08/02/23 00:32 79 21 08/02/23 00:16 83 25 H 08/02/23 00:00 85 20 08/01/23 23:59 81 08/01/23 23:46 82 24 08/01/23 23:35 83 22 08/01/23 23:34 83 98/50 L 08/01/23 23:15 81 33 H 08/01/23 23:00 36.9 C 111/58 L 08/01/23 23:00 80 17 08/01/23 22:18 79 17 08/01/23 22:00 82 25 H 08/01/23 22:00 119/63 08/01/23 21:00 106/58 L 08/01/23 21:00 84 27 H 08/01/23 20:20 89 110/58 L BP Pulse Ox O2 Del Method O2 Flow Rate FiO2 08/02/23 07:55 08/02/23 07:49 94 BiPAP 40 08/02/23 07:42 93 40 08/02/23 07:00 08/02/23 06:00 132/54 L 93 BiPAP 40 08/02/23 04:31 08/02/23 04:16 08/02/23 04:15 93 08/02/23 04:01 93 BiPAP 40 08/02/23 04:00 08/02/23 04:00 93 40 08/02/23 03:59 94 08/02/23 03:01 91 08/02/23 03:00 08/02/23 02:59 92 08/02/23 02:31 93 08/02/23 02:00 08/02/23 02:00 91 08/02/23 01:30 92 08/02/23 01:00 91 08/02/23 00:45 91 08/02/23 00:32 92 08/02/23 00:16 93 08/02/23 00:00 93 08/01/23 23:59 08/01/23 23:46 93 08/01/23 23:35 93 08/01/23 23:34 08/01/23 23:15 94 BiPAP 40 08/01/23 23:00 08/01/23 23:00 93 BiPAP 40 08/01/23 22:18 97 40 08/01/23 22:00 90 08/01/23 22:00 87 L Oxymask 15 08/01/23 21:00 08/01/23 21:00 90 08/01/23 20:20 PG Care Time/CCT Total # of Minutes Spent Total Time Spent with Patient: Total time spent is greater than 50% in coordination of care (as documented) at patient's floor/unit and/or counseling patient: Coding Level of Care Code 48069 Post Operative Follow-Up Diagnoses Status post laparotomy Z98.890
--- NOTE | 2023-08-02 08:32 | Critical Care Progress Note ---
Date of Service August 02, 2023 Assessment & Plan (1) Status post laparotomy: (2) Shock: (3) Cholecystitis: (4) Hypoxia: Plan Reason Critically Ill: IMPRESSION: 83-year-old male with a history of GERD, small obstruction, prior A-fib, allergic rhinitis who presents status post grant rgent laparoscopic cholecystectomy which was converted to exploratory laparotomy. NEURO - * CAM ICU: NEGATIVE * Patient underwent transabdominal blocks by anesthesia yesterday. He does require intermittent doses of morphine with any movement. CARDIAC/VASCULAR - * A-fib: * Will defer ongoing anticoagulation to his surgical team given extensive intra-abdominal surgical intervention. * As needed IV metoprolol dosing ordered. * Monitor on telemetry. RESPIRATORY - * Hypoxia: * Chest x-ray reviewed without any significant infiltrative processes. Patient likely splinting in the setting of significant abdominal surgery. Continue with CPAP at night and supplemental oxygen. Titrate down as tolerated. GI/NUTRITION - * Cholecystitis status post laparoscopic with conversion to exploratory laparotomy: * Defer to surgery for ongoing management. * NGT to LIS. * Remains n.p.o. at this time. * Continue with antibiotic and antifungal coverage status post extensive abdominal surgery. * Patient with bile leak noted overnight. Appreciate surgical management. RENAL/LYTES - * Hypophosphatemia: * Continue with aggressive replacement patient n.p.o. status post extensive abdominal surgery. * IVF: D5W @50mL/hr, Plasma-lyte @ 50 mL/hr. - * Steiner in place - Strict I&Os. ENDO - * BSGs per unit protocol. ISS --> gtt per unit policy. HEME - * Stable H&H. Monitor for signs and symptoms of bleeding status post extensive surgical evaluation. * Patient with history of clotting postsurgical intervention in the past. Defer to surgical ID - * Status post extensive abdominal surgery intervention: * Continue with cefepime, Flagyl, and caspofungin given extensive surgical intervention and likely bile leakage. LINES/IV ACCESS - * PIVs x2 * CRICKET Drains. * Steiner DVT PROPHYLAXIS - * Will start SQ Heparin * SCDs I have personally spent 45 minutes of critical care time in the direct management of this patient. This is a life/limb threatening event. This includes time spent evaluating patient, direct bedside care, chart review, placing orders, interpretation of diagnostic studies, discussion with consultants, patient, and family members, as well as other required patient management activities. This time is exclusive of all separately billable procedures, and teaching time and separate from and in addition to any other critical care service time. Thank you for allowing us to participate in the care of this patient. Please refer to my attending physician's documentation for any further recommendations. Admission and Anticipated Discharge Date Admission Date: July 29, 2023 Supervising Physician Co-Signing Physician Notes Patient seen and examined. EMR reviewed. Discussed on multidisciplinary rounds and with bedside critical care nurse as well as with patient family at bedside. Patient appears to have suffered a bile leak. 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 Reoperation not felt to be an option. Prognosis extremely guarded. Subjective Patient seen and evaluated by myself at bedside. Overnight events noted. Patient had some discomfort with dressing change this morning and associated nausea with administration of morphine. He is doing better after initial dose of Zofran. He offers minimal complaints of discomfort at this time. He is saturating well on 9 L oxime mask which is improved from yesterday. Patient offers no complaints otherwise. Review of Systems Review of Systems: As per HPI. Physical Exam Physical Exam: VITAL SIGNS - Vital signs and nursing notes were reviewed. GENERAL - 83-year-old male appearing his stated age who is in no acute distress. SKIN - Midline abdominal incision clean, dry, and intact. HEAD - NC/AT. EYES - PERRL with EOMI bilaterally. Sclera anicteric. NOSE - Midline and without cyanosis. NGT in place. MOUTH/OROPHARYNX - Without perioral cyanosis. LUNGS -no respiratory distress. Coarse breath sounds at the bases. CARDIAC - RRR with S1/S2. No murmur, rubs, or gallops appreciated. ABDOMEN - Abdominal contour obese without pulsations or visible masses. Midline surgical incision site clean, dry, and intact. Mild tenderness to palpation across the abdomen. EXTREMITIES - No clubbing or peripheral cyanosis. Moderate pretibial edema present. +3/5 radial and dorsalis pedis pulses palpated throughout. NEUROLOGIC - Cranial nerves II through XII grossly intact. PSYCH - A&O to person and location and cooperates fully with examiner. Results & Data Results & Data Vital Signs (Past 12 Hours) Vital Signs Temp Pulse Pulse Pulse Resp BP BP 08/02/23 07:55 87 142/61 H 08/02/23 07:49 37.0 C 91 H 15 124/66 08/02/23 07:42 93 H 18 08/02/23 07:00 93 H 08/02/23 06:00 83 18 08/02/23 04:31 83 128/51 L 08/02/23 04:16 95 H 160/66 H 08/02/23 04:15 94 H 21 08/02/23 04:01 36.9 C 89 26 H 08/02/23 04:00 131/61 08/02/23 04:00 92 H 21 08/02/23 03:59 85 44 H 08/02/23 03:01 81 33 H 08/02/23 03:00 130/65 08/02/23 02:59 84 24 08/02/23 02:31 85 18 08/02/23 02:00 106/49 L 08/02/23 02:00 81 18 08/02/23 01:30 84 20 08/02/23 01:00 87 18 08/02/23 00:45 98 H 17 08/02/23 00:32 79 21 08/02/23 00:16 83 25 H 08/02/23 00:00 85 20 08/01/23 23:59 81 08/01/23 23:46 82 24 08/01/23 23:35 83 22 08/01/23 23:34 83 98/50 L 08/01/23 23:15 81 33 H 08/01/23 23:00 36.9 C 111/58 L 08/01/23 23:00 80 17 08/01/23 22:18 79 17 08/01/23 22:00 82 25 H 08/01/23 22:00 119/63 08/01/23 21:00 106/58 L 08/01/23 21:00 84 27 H BP Pulse Ox O2 Del Method O2 Flow Rate FiO2 08/02/23 07:55 08/02/23 07:49 94 BiPAP 40 08/02/23 07:42 93 40 08/02/23 07:00 08/02/23 06:00 132/54 L 93 BiPAP 40 08/02/23 04:31 08/02/23 04:16 08/02/23 04:15 93 08/02/23 04:01 93 BiPAP 40 08/02/23 04:00 08/02/23 04:00 93 40 08/02/23 03:59 94 08/02/23 03:01 91 08/02/23 03:00 08/02/23 02:59 92 08/02/23 02:31 93 08/02/23 02:00 08/02/23 02:00 91 08/02/23 01:30 92 08/02/23 01:00 91 08/02/23 00:45 91 08/02/23 00:32 92 08/02/23 00:16 93 08/02/23 00:00 93 08/01/23 23:59 08/01/23 23:46 93 08/01/23 23:35 93 08/01/23 23:34 08/01/23 23:15 94 BiPAP 40 08/01/23 23:00 08/01/23 23:00 93 BiPAP 40 08/01/23 22:18 97 40 08/01/23 22:00 90 08/01/23 22:00 87 L Oxymask 15 08/01/23 21:00 08/01/23 21:00 90 Coding Level of Care Code 83756 CRITICAL CARE 1ST 30-74M Diagnoses Status post laparotomy Z98.890 Shock R57.9 Cholecystitis K81.9 Hypoxia R09.02
[2023-08-02 11:43] LABS: BUN Creatinine Ratio 20.9 (10-20); Calcium 7.3 mg/dl (8.6-10.3); Creatinine Clr Calc Pharmacy 97.9 ml/min; Est GFR (African American) 101.5 ml/min; Est GFR (Non-African American) 87.6 ml/min; Phosphorus 2.5 mg/dl (2.5-4.9); Potassium 3.7 mmol/L (3.5-5.1)
--- NOTE | 2023-08-02 13:14 | Hospitalist Progress Note ---
Date of Service August 02, 2023 Assessment & Plan (1) Shock: Plan: Most likely septic shock versus hemorrhagic shock post surgery Resolved Off of pressors Will keep antihypertensives on hold since her blood pressure still soft. Antibiotics: Flagyl, cefepime, caspofungin Gallbladder fluid growing Klebsiella and Clostridium perfringens (2) Endotracheally intubated: Plan: Extubated 07/31 (3) Status post laparotomy: Plan: Initially patient was thought to have acute cholecystitis. Went to the OR for laparoscopic cholecystectomy was converted to exploratory laparotomy, bowel resection. 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 CRICKET drain in place NG tube in place (4) Cholecystitis: Plan: Status post gallbladder removal On antibiotics that we will cover (5) Gastroesophageal reflux disease: Plan: Continue famotidine (6) History of intestinal obstruction: Plan: History of small bowel obstruction in the past Plan VTE Prophylaxis: SCDs. Chemical prophylaxis on hold, not sure if he will need to go back to the OR. Diet - NPO Admission and Anticipated Discharge Date Admission Date: July 29, 2023 Subjective Patient was extubated yesterday! Has been off of pressors, but noted that his blood pressures have been running soft. Patient was on BiPAP overnight when he had increasing oxygen requirements. This happened during the night when he had biliary drainage from his midline incision. Currently he is on oxy mask. Family in the room. Review of Systems Review of Systems: All systems reviewed & are unremarkable except as noted in Subjective Physical Exam Physical Exam: General: Awake. Able to converse. Oxy mask on. NG tube in place Heart: S1, S2/regular rate and rhythm, no murmur rubs or gallops Lungs: Clear to auscultation Abdomen: Dressing on. CRICKET drain in place Extremities: No clubbing/cyanosis. No edema Behavior: Appropriate, cooperative Results & Data Results & Data Vital Signs (Past 12 Hours) Vital Signs Temp Pulse Pulse Pulse Resp BP BP 08/02/23 12:26 85 102/45 L 08/02/23 12:03 37.0 C 83 25 H 105/62 08/02/23 11:00 83 25 H 111/65 08/02/23 10:00 85 22 104/62 08/02/23 09:00 98 H 26 H 113/61 08/02/23 09:00 89 23 113/61 08/02/23 08:50 88 140/54 L 08/02/23 08:00 87 23 123/74 08/02/23 07:55 87 142/61 H 08/02/23 07:49 37.0 C 91 H 15 124/66 08/02/23 07:42 93 H 18 08/02/23 07:00 83 20 124/66 08/02/23 07:00 08/02/23 07:00 93 H 08/02/23 06:00 83 18 08/02/23 04:31 83 128/51 L 08/02/23 04:16 95 H 160/66 H 08/02/23 04:15 94 H 21 08/02/23 04:01 36.9 C 89 26 H 08/02/23 04:00 131/61 08/02/23 04:00 92 H 21 08/02/23 03:59 85 44 H 08/02/23 03:01 81 33 H 08/02/23 03:00 130/65 08/02/23 02:59 84 24 08/02/23 02:31 85 18 08/02/23 02:00 106/49 L 08/02/23 02:00 81 18 08/02/23 01:30 84 20 BP Pulse Ox O2 Del Method O2 Flow Rate FiO2 08/02/23 12:26 08/02/23 12:03 115/51 L 91 Oxymask 9 08/02/23 11:00 111/56 L 91 Oxymask 9 08/02/23 10:00 123/53 L 92 Oxymask 9 08/02/23 09:00 93 Oxymask 9 08/02/23 09:00 132/52 L 93 Oxymask 9 08/02/23 08:50 08/02/23 08:00 133/82 93 Oxymask 9 08/02/23 07:55 08/02/23 07:49 94 BiPAP 40 08/02/23 07:42 93 40 08/02/23 07:00 141/56 H 93 BiPAP 40 08/02/23 07:00 BiPAP 40 08/02/23 07:00 08/02/23 06:00 132/54 L 93 BiPAP 40 08/02/23 04:31 08/02/23 04:16 08/02/23 04:15 93 08/02/23 04:01 93 BiPAP 40 08/02/23 04:00 08/02/23 04:00 93 40 08/02/23 03:59 94 08/02/23 03:01 91 08/02/23 03:00 08/02/23 02:59 92 08/02/23 02:31 93 08/02/23 02:00 08/02/23 02:00 91 08/02/23 01:30 92 Laboratory Results Abnormal lab results 08/01/23 08/01/23 08/01/23 Range/Units 17:12 17:49 22:44 WBC 11.36 H (4.8-10.8) K/ul RBC (4.70-6.10) M/uL Hgb (14.0-18.0) g/dl POC Hgb 12.2 L (14.0-18.0) g/dl Hct (42.0-52.0) % POC Hct 36 L (42-52) % RDW Std Deviation (36.4-46.3) fL RDW Coeff of Abdi (11.5-14.5) % Neut # (Auto) 9.33 H (1.40-6.50) K/uL Lymph # (Auto) 1.01 L (1.20-3.40) K/uL Parker # (Auto) 0.89 H (0.11-0.59) K/uL POC pO2 61 L (80-95) mmHg Creatinine (0.6-1.4) mg/dl BUN/Creatinine Ratio (10-20) Glucose 115 H (70-99(Fasting)) mg/dl Calcium 7.2 L (8.6-10.3) mg/dl Phosphorus 1.7 L (2.5-4.9) mg/dl Total Protein 4.3 L (6.0-8.3) gm/dl Albumin 2.2 L (3.4-5.0) gm/dl Globulin 2.1 L (2.5-4.0) gm/dl 08/02/23 08/02/23 Range/Units 04:40 10:58 WBC 12.14 H (4.8-10.8) K/ul RBC 4.20 L (4.70-6.10) M/uL Hgb 12.3 L (14.0-18.0) g/dl POC Hgb (14.0-18.0) g/dl Hct 35.2 L (42.0-52.0) % POC Hct (42-52) % RDW Std Deviation 46.7 H (36.4-46.3) fL RDW Coeff of Abdi 15.5 H (11.5-14.5) % Neut # (Auto) (1.40-6.50) K/uL Lymph # (Auto) (1.20-3.40) K/uL Parker # (Auto) (0.11-0.59) K/uL POC pO2 (80-95) mmHg Creatinine 0.58 L (0.6-1.4) mg/dl BUN/Creatinine Ratio 22.4 H 20.9 H (10-20) Glucose 135 H 130 H (70-99(Fasting)) mg/dl Calcium 7.6 L 7.3 L (8.6-10.3) mg/dl Phosphorus 1.4 L* (2.5-4.9) mg/dl Total Protein (6.0-8.3) gm/dl Albumin (3.4-5.0) gm/dl Globulin (2.5-4.0) gm/dl PG Care Time/CCT Total # of Minutes Spent Total Time Spent with Patient: Total time spent is greater than 50% in coordination of care (as documented) at patient's floor/unit and/or counseling patient: Coding Level of Care Code 06857 SUB INP/OBS CARE 2/35MIN Diagnoses Shock R57.9 Endotracheally intubated Z97.8 Status post laparotomy Z98.890 Cholecystitis K81.9 Gastroesophageal reflux disease K21.9 History of intestinal obstruction Z87.19
[2023-08-02] MEDS: CASPOFUNGIN 50 MG in SODIUM CHLORIDE 0.9% 250 ML IV SCH (13:28)
[2023-08-02] MEDS: HEPARIN SOD 5,000 UNIT/0.5 ML VIAL SQ SCH (14:35)
[2023-08-02] MEDS: NOREPINEPHRINE/D5W 4 MG/250 ML IV ONE (15:16)
[2023-08-02] MEDS: ACETAMINOPHEN 1,000 MG/100 ML VIAL IV PRN (15:27)
--- NOTE | 2023-08-02 15:47 | XRay Report ---
XR chest 1V portable CLINICAL HISTORY: Resp failure TECHNIQUE: Single frontal radiograph of the chest was obtained. Comparison: Comparison is made to chest radiograph 08/01/2023 FINDINGS: No lines and tubes are seen. Cardiomegaly is noted. Faint bibasilar airspace opacities are seen. Smal l bilateral pleural effusions are seen. IMPRESSION: Faint bibasilar airspace opacity may represent atelectasis. ACT 112: Negative or not required by law. Electronically signed by: Wilber Gutierrez M.D. 08/02/2023 3:46 PM
[2023-08-02 19:17] LABS: Phosphorus 2.2 mg/dl (2.5-4.9); Potassium 3.6 mmol/L (3.5-5.1)
[2023-08-02] MEDS ORDERED: POTASSIUM PHOSPHATE 21 MMOL in SODIUM CHLORIDE 0.9% 500 ML IV ONE (20:15)
[2023-08-03 05:03] LABS: Hematocrit (blood only) 35.7 % (42.0-52.0); Hemoglobin 12.2 g/dl (14.0-18.0); Mean Corpuscular Hemoglobin 28.8 pg (25.0-34.0); Mean Corpuscular Hgb Conc 34.2 g/dL (32.0-36.0); Mean Corpuscular Volume 84.2 fL (80.0-100.0); Mean Platelet Volume 10.5 fL (9.4-12.4); Platelet Count 209 K/uL (130-400); RDW Coefficient of Variation 15.4 % (11.5-14.5); RDW Standard Deviation 46.5 fL (36.4-46.3); Red Blood Count 4.24 M/uL (4.70-6.10); White Blood Count 15.26 K/ul (4.8-10.8)
[2023-08-03 05:18] LABS: BUN Creatinine Ratio 27.9 (10-20); Creatinine Clr Calc Pharmacy 96.5 ml/min; Est GFR (African American) 100.9 ml/min; Est GFR (Non-African American) 87.1 ml/min; Phosphorus 2.3 mg/dl (2.5-4.9); Potassium 3.8 mmol/L (3.5-5.1)
[2023-08-03] MEDS ORDERED: SODIUM PHOSPHATE 3 MMOL/1 ML INFUSION IV STA (08:21)
--- NOTE | 2023-08-03 08:27 | Critical Care Progress Note ---
Date of Service August 03, 2023 Assessment & Plan (1) Status post laparotomy: (2) Shock: (3) Cholecystitis: (4) Hypoxia: (5) Endotracheally intubated: Plan Impression: 83-year-old male with a history of GERD, small bowel obstruction, prior atrial fibrillation and allergic rhinitis who presented with acute cholecystitis and underwent an emergent laparoscopic cholecystectomy which was then converted to an exploratory laparotomy given extensive disease in the iron toneum. He was transferred to the ICU postoperatively intubated and sedated. 24-hour events: Patient remains liberated from mechanical ventilation. He has been on BiPAP intermittently. His mental status is gradually clearing. He continues to have high output from his enterocutaneous fistula. He has been hemodynamically stable. Recommendations: Neurologic: Continues to show neurologic improvement. Will need PT and OT evaluations. Pulmonary: Continue to wean oxygen as tolerated. Pulmonary toilet. Incentive spirometry when the patient's mental status allows. Cardiovascular: Prior history of atrial fibrillation. Anticoagulation on hold. Continue metoprolol 5 mg every 4 hours as we cannot give enteric medications currently. Discontinue arterial line. Continue Lasix Gastrointestinal: Status post laparotomy with cholecystectomy. NG tube management and surgical management deferred to general surgical team. 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 Being managed conservatively. Defer to the surgical team. Will discuss with family placement of PICC line as the patient is likely to be n.p.o. for an extended period of time and will discuss on multidisciplinary rounds timing of initiation of enteral nutrition. Renal: Monitor urine output closely via Steiner catheter. ICU electrolyte replacement protocol placed. Keep IV fluids to match intake and output although difficult given the inability to track output from his enterocutaneous fistula Infectious disease: Currently day #4 cefepime, Flagyl, caspofungin. Gallbladder growing Klebsiella pneumoniae (pansensitive) and Clostridium perfringens. Defer duration of antibiotics to the surgical service. White count slightly increased today Hematologic: Mild postoperative anemia noted. No role for transfusion at this time Endocrine: Glycemic protocol per ICU Lines and tubes: PIV's and Steiner catheter in place VTE prophylaxis: SCDs. Subcu heparin CODE STATUS: Full Family at bedside: Family will be updated when present Disposition: ICU Patient is critically ill with multiorgan system dysfunction and high risk of clinical deterioration. Total of 39 minutes in critical care time was spent in evaluation management coordinating care for this complex medical patient. Given his high acuity nursing needs, keeping him in the ICU might be appropriate although will defer disposition to the general surgical service Admission and Anticipated Discharge Date Admission Date: July 29, 2023 Subjective Patient seen and examined. EMR reviewed and. He is on BiPAP this morning but unclear why it was initiated. He is awake and conversant. He denies any complaints. Review of Systems Review of Systems: All systems reviewed & are unremarkable except as noted in Subjective Physical Exam Constitutional: WD/WN, vitals as above Neck: trachea midline, no thyromegaly Respiratory: normal respiratory effort, lungs clear to auscultation Cardiovascular: RRR, no murmur, no edema Gastrointestinal (Abdomen): normal bowel sounds, soft, nontender, no hepatosplenomegaly Musculoskeletal: Extremities: extremities normal to inspection Skin: no rashes, warm and dry Lymphatic: no cervical lymphadenopathy Results & Data Results & Data Vital Signs (Past 12 Hours) Vital Signs Temp Pulse Pulse Resp BP BP BP 08/03/23 08:10 67 118/50 L 08/03/23 07:52 110 H 17 08/03/23 07:50 70 137/57 L 08/03/23 06:10 77 16 129/59 L 08/03/23 05:00 36.7 C 74 20 122/61 08/03/23 04:13 73 123/59 L 08/03/23 03:58 85 124/73 08/03/23 03:00 83 16 124/76 08/03/23 02:00 36.9 C 79 21 136/72 08/03/23 01:00 79 21 136/72 08/03/23 00:48 77 08/03/23 00:21 77 104/67 08/03/23 00:01 77 21 119/60 08/02/23 23:00 36.9 C 78 21 110/69 08/02/23 22:58 08/02/23 22:00 78 21 126/76 08/02/23 22:00 81 34 H 08/02/23 21:30 72 33 H 08/02/23 21:15 71 20 08/02/23 21:00 113/64 08/02/23 21:00 68 19 08/02/23 20:42 75 122/73 08/02/23 20:27 80 138/55 L Pulse Ox O2 Del Method O2 Flow Rate FiO2 08/03/23 08:10 08/03/23 07:52 98 40 08/03/23 07:50 08/03/23 06:10 98 Oxymask 9 08/03/23 05:00 98 Oxymask 9 08/03/23 04:13 08/03/23 03:58 08/03/23 03:00 98 Oxymask 9 08/03/23 02:00 97 Oxymask 9 08/03/23 01:00 97 Oxymask 9 08/03/23 00:48 08/03/23 00:21 08/03/23 00:01 98 Oxymask 9 08/02/23 23:00 96 Oxymask 08/02/23 22:58 Oxymask 9 08/02/23 22:00 99 Oxymask 9 08/02/23 22:00 99 40 08/02/23 21:30 93 08/02/23 21:15 93 08/02/23 21:00 08/02/23 21:00 91 Oxymask 9 08/02/23 20:42 08/02/23 20:27 Critical Care Results & Data Vital Signs (Past 12 Hours) Vital Signs Temp Pulse Pulse Resp BP BP BP 08/03/23 08:10 67 118/50 L 08/03/23 07:52 110 H 17 08/03/23 07:50 70 137/57 L 08/03/23 06:10 77 16 129/59 L 08/03/23 05:00 36.7 C 74 20 122/61 08/03/23 04:13 73 123/59 L 08/03/23 03:58 85 124/73 08/03/23 03:00 83 16 124/76 08/03/23 02:00 36.9 C 79 21 136/72 08/03/23 01:00 79 21 136/72 08/03/23 00:48 77 08/03/23 00:21 77 104/67 08/03/23 00:01 77 21 119/60 08/02/23 23:00 36.9 C 78 21 110/69 08/02/23 22:58 08/02/23 22:00 78 21 126/76 08/02/23 22:00 81 34 H 08/02/23 21:30 72 33 H 08/02/23 21:15 71 20 08/02/23 21:00 113/64 05/07/24 21:00 68 19 08/02/23 20:42 75 122/73 Pulse Ox O2 Del Method O2 Flow Rate FiO2 08/03/23 08:10 08/03/23 07:52 98 40 08/03/23 07:50 08/03/23 06:10 98 Oxymask 9 08/03/23 05:00 98 Oxymask 9 08/03/23 04:13 08/03/23 03:58 08/03/23 03:00 98 Oxymask 9 08/03/23 02:00 97 Oxymask 9 08/03/23 01:00 97 Oxymask 9 08/03/23 00:48 08/03/23 00:21 08/03/23 00:01 98 Oxymask 9 08/02/23 23:00 96 Oxymask 08/02/23 22:58 Oxymask 9 08/02/23 22:00 99 Oxymask 9 08/02/23 22:00 99 40 08/02/23 21:30 93 08/02/23 21:15 93 08/02/23 21:00 08/02/23 21:00 91 Oxymask 9 08/02/23 20:42 Lab & Micro Results (Past 24 Hours) RBC 4.24 M/uL (4.70-6.10) L 08/03/23 WBC 15.26 K/ul (4.8-10.8) H 08/03/23 Hgb 12.2 g/dl (14.0-18.0) L 08/03/23 Hct 35.7 % (42.0-52.0) L 08/03/23 MCV 84.2 fL (80.0-100.0) 08/03/23 MCH 28.8 pg (25.0-34.0) 08/03/23 MCHC 34.2 g/dL (32.0-36.0) 08/03/23 RDW Standard Deviation 46.5 fL (36.4-46.3) H 08/03/23 RDW Coefficient of Variation 15.4 % (11.5-14.5) H 08/03/23 Plt Count 209 K/uL (130-400) 08/03/23 MPV 10.5 fL (9.4-12.4) 08/03/23 Na 139 mmol/L (136-145) 08/03/23 K 3.8 mmol/L (3.5-5.1) 08/03/23 Cl 99 mmol/L (98-107) 08/03/23 CO2 35 mmol/L (21-32) H 08/03/23 Anion Gap 5 (3-11) 08/03/23 BUN 19 mg/dl (6-23) 08/03/23 Creatinine 0.68 mg/dl (0.6-1.4) 08/03/23 Estimated GFR ( Amer) 100.9 ml/min 08/03/23 Estimated GFR (Non-Af Amer) 87.1 ml/min 08/03/23 BUN/Creatinine Ratio 27.9 (10-20) H 08/03/23 Glu 126 mg/dl (70-99(Fasting)) H 08/03/23 Ca 8.0 mg/dl (8.6-10.3) L 08/03/23 Phosphorus Level 2.3 mg/dl (2.5-4.9) L 08/03/23 Mg 2.0 mg/dl (1.7-2.4) 08/03/23 04:43 Calcium Level 8.0 mg/dl (8.6-10.3) L 08/03/23 04:43 Diagnostic Findings (Past 24 Hours) Chest X-Ray 08/02/23 07:00 XR chest 1V portable CLINICAL HISTORY: Resp failure TECHNIQUE: Single frontal radiograph of the chest was obtained. Comparison: Comparison is made to chest radiograph 08/01/2023 FINDINGS: No lines and tubes are seen. Cardiomegaly is noted. Faint bibasilar airspace opacities are seen. Small bilateral pleural effusions are seen. IMPRESSION: Faint bibasilar airspace opacity may represent atelectasis. ACT 112: Negative or not required by law. Electronically signed by: Wilber Gutierrez M.D. 08/02/2023 3:46 PM I & O Totals 24 Hours 08/02/23 08/03/23 08/04/23 06:59 06:59 06:59 Intake Total 4188.884 / 4188.884 3373.333 / 3373.333 Output Total 4320 / 4320 5660 / 5660 220 / 220 Balance -131.116 / -131.116 -2286.667 / -2286.667 -220 / -220 Cumulative 07/29/23 15:36 thru 08/03/23 08:02 Intake Total 78704.049 Output Total 44961 Balance 7375.049 RT Ventilator Mngmt (Last Documented) Ventilator Ordered Settings Ventilator Support Mode CPAP 08/01/23 12:10 Respiratory Rate 17 08/03/23 07:52 Ventilator Tidal Volume 450 08/01/23 11:20 Setting Minute Ventilation 8.6 08/01/23 12:10 Ventilator Positive Pressure 5 08/01/23 12:10 Support Setting Positive End Expiratory 5 08/01/23 12:10 Pressure Fraction of Inspired Oxygen 40 08/03/23 07:52 Machine Comment weaned peep to 5 08/01/23 12:10 Ventilator - PT Measurements Respiratory Rate 17 Exhaled Tidal Volume 482 Minute Ventilation 8.6 Peak Inspiratory Airway 21 Pressure Plateau Pressure 17 Respiratory Cycle Inspiratory: 1:2.7 Expiratory Ratio Inspiratory Phase Time 0.83 End-Tidal CO2 35 Static Lung Compliance 50.33 Dynamic Lung Compliance 34.85 Normal Static Lung Compliance 48.00 Patient Measurements Comment patient extubated to 10L oxy mask, SPO2 92% Coding Level of Care Code 39475 CRITICAL CARE 1ST 30-74M Diagnoses Status post laparotomy Z98.890 Shock R57.9 Cholecystitis K81.9 Hypoxia R09.02 Endotracheally intubated Z97.8
--- NOTE | 2023-08-03 08:30 | Surgery Progress Note ---
Date of Service August 03, 2023 Assessment & Plan (1) Enterocutaneous fistula: Plan: clinically stable. high output from midline... no evidence of peritonitis. will remove remaining stable and have wound nurse place VAC at low suction pressure. keep npo/ngt. once more stable will need PICC line/TPN. wbc may be from wound. removing jenny should help. (2) Status post laparotomy: Admission and Anticipated Discharge Date Admission Date: July 29, 2023 Subjective pt seen. remains extubated/stable. in NAD. per progressive die maker continues to put out alot of bilious drainage. Physical Exam Physical Exam: abd: soft. CRICKET with pink/serous output. abdominal wound saturated with bile. mild erythema. Results & Data Vital Signs (Past 12 Hours) Vital Signs Temp Pulse Pulse Resp BP BP BP 08/03/23 08:10 67 118/50 L 08/03/23 07:52 110 H 17 08/03/23 07:50 70 137/57 L 08/03/23 06:10 77 16 129/59 L 08/03/23 05:00 36.7 C 74 20 122/61 08/03/23 04:13 73 123/59 L 08/03/23 03:58 85 124/73 08/03/23 03:00 83 16 124/76 08/03/23 02:00 36.9 C 79 21 136/72 08/03/23 01:00 79 21 136/72 08/03/23 00:48 77 08/03/23 00:21 77 104/67 08/03/23 00:01 77 21 119/60 08/02/23 23:00 36.9 C 78 21 110/69 08/02/23 22:58 08/02/23 22:00 78 21 126/76 08/02/23 22:00 81 34 H 08/02/23 21:30 72 33 H 08/02/23 21:15 71 20 08/02/23 21:00 113/64 08/02/23 21:00 68 19 08/02/23 20:42 75 122/73 Pulse Ox O2 Del Method O2 Flow Rate FiO2 08/03/23 08:10 08/03/23 07:52 98 40 08/03/23 07:50 08/03/23 06:10 98 Oxymask 9 08/03/23 05:00 98 Oxymask 9 08/03/23 04:13 08/03/23 03:58 08/03/23 03:00 98 Oxymask 9 08/03/23 02:00 97 Oxymask 9 08/03/23 01:00 97 Oxymask 9 08/03/23 00:48 08/03/23 00:21 08/03/23 00:01 98 Oxymask 9 08/02/23 23:00 96 Oxymask 08/02/23 22:58 Oxymask 9 08/02/23 22:00 99 Oxymask 9 08/02/23 22:00 99 40 08/02/23 21:30 93 08/02/23 21:15 93 08/02/23 21:00 08/02/23 21:00 91 Oxymask 9 08/02/23 20:42 PG Care Time/CCT Total # of Minutes Spent Total Time Spent with Patient: Total time spent is greater than 50% in coordination of care (as documented) at patient's floor/unit and/or counseling patient: Coding Level of Care Code 39439 Post Operative Follow-Up Diagnoses 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 Status post laparotomy Z98.890
[2023-08-03] MEDS: SODIUM PHOSPHATE 15 MMOL in SODIUM CHLORIDE 0.9% 250 ML IV ONE (09:03)
[2023-08-03] MEDS: POTASSIUM CHLORIDE / WTR 10 MEQ/100 ML PLCT IV SCH (09:03)
[2023-08-03] MEDS: MAGNESIUM SULFATE / D5W 1 GM/100 ML BAG IV SCH (09:03)
[2023-08-03] MEDS: FUROSEMIDE INJ 20 MG/2 ML VIAL IV SCH (09:07)
--- NOTE | 2023-08-03 13:33 | Hospitalist Progress Note ---
Date of Service August 03, 2023 Assessment & Plan (1) Shock: Plan: Most likely septic shock post surgery Resolved Off of pressors Will keep antihypertensives on hold since her blood pressure still soft. Antibiotics: Flagyl, cefepime, caspofungin Gallbladder fluid growing Klebsiella and Clostridium perfringens White count slightly elevated today. Surgery and critical care involved. (2) Endotracheally intubated: Plan: Extubated 5/6 On 3 L OxyMask (3) Status post laparotomy: Plan: Initially patient was thought to have acute cholecystitis. Went to the OR for laparoscopic cholecystectomy was converted to exploratory laparotomy, bowel resection. 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 Plan is to place a wound VAC. Wound care involved. CRICKET drain in place NG tube in place PICC line for TPN (4) Cholecystitis: Plan: Status post gallbladder removal On antibiotics that we will cover (5) Gastroesophageal reflux disease: Plan: Continue famotidine (6) History of intestinal obstruction: Plan: History of small bowel obstruction in the past Plan VTE Prophylaxis: SCDs. Now on heparin 3 times daily Diet - NPO Admission and Anticipated Discharge Date Admission Date: July 29, 2023 Subjective Patient remains extubated. Remains off of pressors. Blood pressure holding. He is having high output from the enterocutaneous fistula. Patient was able to speak to me. Oxygen requirements decreasing. Review of Systems Review of Systems: All systems reviewed & are unremarkable except as noted in Subjective Physical Exam Physical Exam: General: Awake. Able to converse. Oxy mask on. NG tube in place Heart: S1, S2/regular rate and rhythm, no murmur rubs or gallops Lungs: Clear to auscultation Abdomen: Dressing on. CRICKET drain in place Extremities: No clubbing/cyanosis. No edema Behavior: Appropriate, cooperative Results & Data Results & Data Vital Signs (Past 12 Hours) Vital Signs Temp Pulse Pulse Resp BP BP Pulse Ox 08/03/23 13:00 77 19 96 08/03/23 13:00 104/61 08/03/23 12:45 73 94/50 L 08/03/23 12:32 36.5 C 08/03/23 12:00 94/50 L 08/03/23 12:00 71 25 H 97 08/03/23 11:06 77 24 94 08/03/23 10:01 72 17 97 08/03/23 10:01 90/62 L 08/03/23 10:00 72 22 98 08/03/23 09:59 08/03/23 09:00 68 16 97 08/03/23 09:00 120/63 08/03/23 08:45 67 17 96 08/03/23 08:30 67 16 94 08/03/23 08:15 68 17 96 08/03/23 08:10 67 118/50 L 08/03/23 08:00 71 08/03/23 08:00 69 10 L 99 08/03/23 08:00 124/65 08/03/23 07:52 110 H 17 98 08/03/23 07:50 70 137/57 L 08/03/23 07:45 08/03/23 07:45 72 23 94 08/03/23 07:30 73 17 96 08/03/23 07:15 78 16 96 08/03/23 07:08 85 20 93 08/03/23 06:10 77 16 129/59 L 98 08/03/23 05:00 36.7 C 74 20 122/61 98 08/03/23 04:13 73 123/59 L 08/03/23 03:58 85 124/73 08/03/23 03:00 83 16 124/76 98 08/03/23 02:00 36.9 C 79 21 136/72 97 O2 Del Method O2 Flow Rate FiO2 08/03/23 13:00 Oxymask 3 08/03/23 13:00 08/03/23 12:45 08/03/23 12:32 08/03/23 12:00 08/03/23 12:00 08/03/23 11:06 08/03/23 10:01 08/03/23 10:01 08/03/23 10:00 08/03/23 09:59 Oxymask 6 08/03/23 09:00 08/03/23 09:00 08/03/23 08:45 08/03/23 08:30 08/03/23 08:15 08/03/23 08:10 08/03/23 08:00 08/03/23 08:00 08/03/23 08:00 08/03/23 07:52 40 08/03/23 07:50 08/03/23 07:45 Oxymask 6 08/03/23 07:45 08/03/23 07:30 08/03/23 07:15 08/03/23 07:08 08/03/23 06:10 Oxymask 9 08/03/23 05:00 Oxymask 9 08/03/23 04:13 08/03/23 03:58 08/03/23 03:00 Oxymask 9 08/03/23 02:00 Oxymask 9 Laboratory Results Abnormal lab results 08/02/23 08/02/23 08/03/23 Range/Units 18:23 18:25 00:18 WBC (4.8-10.8) K/ul RBC (4.70-6.10) M/uL Hgb (14.0-18.0) g/dl Hct (42.0-52.0) % RDW Std Deviation (36.4-46.3) fL RDW Coeff of Abdi (11.5-14.5) % Carbon Dioxide (21-32) mmol/L BUN/Creatinine Ratio (10-20) Glucose (70-99(Fasting)) mg/dl POC Glucose 107 H 110 H (70-99) mg/dl Calcium (8.6-10.3) mg/dl Phosphorus 2.2 L (2.5-4.9) mg/dl 08/03/23 08/03/23 Range/Units 04:43 12:06 WBC 15.26 H (4.8-10.8) K/ul RBC 4.24 L (4.70-6.10) M/uL Hgb 12.2 L (14.0-18.0) g/dl Hct 35.7 L (42.0-52.0) % RDW Std Deviation 46.5 H (36.4-46.3) fL RDW Coeff of Abdi 15.4 H (11.5-14.5) % Carbon Dioxide 35 H (21-32) mmol/L BUN/Creatinine Ratio 27.9 H (10-20) Glucose 126 H (70-99(Fasting)) mg/dl POC Glucose 107 H (70-99) mg/dl Calcium 8.0 L (8.6-10.3) mg/dl Phosphorus 2.3 L (2.5-4.9) mg/dl PG Care Time/CCT Total # of Minutes Spent Total Time Spent with Patient: Total time spent is greater than 50% in coordination of care (as documented) at patient's floor/unit and/or counseling patient: Coding Level of Care Code 48487 SUB INP/OBS CARE 2/35MIN Diagnoses Shock R57.9 Endotracheally intubated Z97.8 Status post laparotomy Z98.890 Cholecystitis K81.9 Gastroesophageal reflux disease K21.9 History of intestinal obstruction Z87.19
[2023-08-04 05:09] LABS: Hemoglobin 11.9 g/dl (14.0-18.0); Mean Corpuscular Hemoglobin 28.7 pg (25.0-34.0); Mean Corpuscular Hgb Conc 33.1 g/dL (32.0-36.0); Mean Platelet Volume 10.4 fL (9.4-12.4); Platelet Count 224 K/uL (130-400); RDW Standard Deviation 44.8 fL (36.4-46.3); Red Blood Count 4.14 M/uL (4.70-6.10); White Blood Count 15.47 K/ul (4.8-10.8)
[2023-08-04 05:27] LABS: BUN Creatinine Ratio 39.4 (10-20); Calcium 8.6 mg/dl (8.6-10.3); Creatinine Clr Calc Pharmacy 91.3 ml/min; Est GFR (African American) 99.2 ml/min; Est GFR (Non-African American) 85.6 ml/min; Magnesium 2.2 mg/dl (1.7-2.4); Phosphorus 2.2 mg/dl (2.5-4.9); Potassium 3.8 mmol/L (3.5-5.1)
[2023-08-04] MEDS ORDERED: SODIUM PHOSPHATE 3 MMOL/1 ML INFUSION IV STA (05:47)
[2023-08-04] MEDS: POTASSIUM CHLORIDE / WTR 10 MEQ/100 ML PLCT IV SCH (05:56)
[2023-08-04] MEDS: SODIUM PHOSPHATE 15 MMOL in SODIUM CHLORIDE 0.9% 250 ML IV ONE (06:01)
--- NOTE | 2023-08-04 07:42 | Surgery Progress Note ---
Date of Service August 04, 2023 Assessment & Plan (1) Enterocutaneous fistula: Plan: keep ngt vac in place/functioning picc in...can start TPN soon Admission and Anticipated Discharge Date Admission Date: July 29, 2023 Subjective pt resting comfortably. no complaints. Physical Exam Physical Exam: alert. nad abd: soft. vac in place. CRICKET pink/serous. vac not putting out much in last 24 hours Results & Data Vital Signs (Past 12 Hours) Vital Signs Temp Pulse Resp BP Pulse Ox O2 Del Method O2 Flow Rate 08/04/23 06:15 72 18 94 08/04/23 06:00 121/56 L 08/04/23 06:00 72 18 94 08/04/23 05:45 71 20 93 08/04/23 05:45 36.8 C 120/57 L 08/04/23 05:30 72 13 92 08/04/23 05:00 76 17 92 08/04/23 04:45 69 17 94 08/04/23 04:39 71 120/57 L 08/04/23 04:30 71 17 94 08/04/23 04:24 83 120/55 L 08/04/23 04:15 71 17 93 08/04/23 04:00 70 17 93 08/04/23 04:00 120/55 L 08/04/23 03:45 71 17 94 08/04/23 03:30 71 19 94 08/04/23 03:15 77 13 93 08/04/23 03:00 85 20 92 08/04/23 03:00 127/59 L 08/04/23 02:45 90 21 92 08/04/23 02:30 72 19 94 08/04/23 02:15 70 18 95 08/04/23 02:00 115/54 L 08/04/23 02:00 69 18 95 08/04/23 01:45 71 18 95 08/04/23 01:30 67 17 95 08/04/23 01:15 70 21 94 08/04/23 01:00 69 19 95 08/04/23 01:00 114/58 L 08/04/23 00:45 67 17 95 08/04/23 00:36 114/56 L 08/04/23 00:36 66 18 95 08/04/23 00:30 66 18 95 08/04/23 00:26 66 114/56 L 08/04/23 00:15 70 18 94 08/04/23 00:11 71 132/61 08/04/23 00:00 74 17 94 08/04/23 00:00 132/61 08/03/23 23:45 77 17 94 08/03/23 23:30 81 18 94 08/03/23 23:15 72 17 95 08/03/23 23:01 Nasal Cannula 3 08/03/23 23:00 36.9 C 74 18 95 08/03/23 23:00 118/58 L 08/03/23 22:45 71 18 96 08/03/23 22:30 69 17 96 Nasal Cannula 3 08/03/23 22:15 71 17 95 08/03/23 22:00 129/65 08/03/23 22:00 75 19 95 08/03/23 21:00 79 18 97 08/03/23 21:00 117/63 08/03/23 20:31 75 100/62 08/03/23 20:02 82 19 94 08/03/23 20:02 100/62 08/03/23 20:00 83 20 93 Nasal Cannula 4 PG Care Time/CCT Total # of Minutes Spent Total Time Spent with Patient: Total time spent is greater than 50% in coordination of care (as documented) at patient's floor/unit and/or counseling patient: Coding Level of Care Code 72843 Post Operative Follow-Up Diagnoses 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
--- NOTE | 2023-08-04 08:46 | Critical Care Progress Note ---
Date of Service August 04, 2023 Assessment & Plan (1) Status post laparotomy: (2) Shock: (3) Cholecystitis: (4) Hypoxia: Plan Reason Critically Ill: IMPRESSION: 83-year-old male with a history of GERD, small obstruction, prior A-fib, allergic rhinitis who presents status post grant rgent laparoscopic cholecystectomy which was converted to exploratory laparotomy. NEURO - * CAM ICU: NEGATIVE * Mental status improved today. CARDIAC/VASCULAR - * A-fib: * Will defer ongoing anticoagulation to his surgical team given extensive intra-abdominal surgical intervention. * As needed IV metoprolol dosing ordered. * Ongoing Lasix dosing. * Monitor on telemetry. RESPIRATORY - * Hypoxia: * Continues to improve. * Now on 3L NC. * Continue with pulmonary toileting. * Plan for OOB to chair today as approved by general surgery. GI/NUTRITION - * Cholecystitis status post laparoscopic with conversion to exploratory laparotomy: * Defer to surgery for ongoing management. * NGT to LIS. * Remains n.p.o. at this time. * Continue with antibiotic and antifungal coverage status post extensive abdo ashley surgery. * Bile leak with wound vac in place. * Plan to start TPN today with PICC line in place. RENAL/LYTES - * Hypophosphatemia: * Continue with aggressive replacement patient n.p.o. status post extensive abdominal surgery. * Hopeful for improvement with initiation of TPN. - * Steiner in place - Strict I&Os. ENDO - * BSGs per unit protocol. ISS --> gtt per unit policy. HEME - * Stable H&H. Monitor for signs and symptoms of bleeding status post extensive surgical evaluation. ID - * Status post extensive abdominal surgery intervention: * Continue with cefepime, Flagyl, and caspofungin given extensive surgical intervention and likely bile leakage. LINES/IV ACCESS - * US guided PIV in the LUE * PICC in the RUE * CRICKET Drains. * Steiner DVT PROPHYLAXIS - * SQ Heparin * SCDs Thank you for allowing us to participate in the care of this patient. Patient is stable for downgrade out of the ICU at this time. Please refer to my attending physician's documentation for any further recommendations. Admission and Anticipated Discharge Date Admission Date: July 29, 2023 Supervising Physician Co-Signing Physician Notes Patient seen and examined. EMR reviewed. Discussed on multidisciplinary rounds and with critical care ADRIEL. Agree with assessment plan as noted. Patient is showing slow clinical improvement. His sensorium is gradually clearing. He has been hemodynamically stable. He is tolerating gentle diuresis. A PICC line has been placed. Discussed with dietary and plan to initiate TPN later. Will need close attention to electrolytes. Continued management of his enterocutaneous fistula per general surgery. The patient's critical care issues appear to have resolved. He is appropriate to progress to the next level of care and transfer out of the ICU. Critical care services will sign off. Feel free to contact us with questions or concerns Subjective Patient seen and evaluated at bedside this morning. He is more awake and alert today. He offers no complaints of pain at this time. He is saturating well on 3 L nasal cannula. Review of Systems Review of Systems: As per HPI. Physical Exam Physical Exam: VITAL SIGNS - Vital signs and nursing notes were reviewed. GENERAL - 83-year-old male appearing his stated age who is in no acute distress. SKIN - Midline abdominal incision clean, dry, and intact. LUNGS - No respiratory distress. Coarse breath sounds at the bases. CARDIAC - RRR with S1/S2. No murmur, rubs, or gallops appreciated. ABDOMEN - Abdominal contour obese without pulsations or visible masses. Midline surgical incision site clean, dry, and intact. Mild tenderness to palpation across the abdomen. EXTREMITIES - No clubbing or peripheral cyanosis. Moderate pretibial edema present. +3/5 radial and dorsalis pedis pulses palpated throughout. NEUROLOGIC - Cranial nerves II through XII grossly intact. PSYCH - A&O to person and location and cooperates fully with examiner. Results & Data Results & Data Vital Signs (Past 12 Hours) Vital Signs Temp Pulse Resp BP Pulse Ox O2 Del Method O2 Flow Rate 08/04/23 08:33 36.7 C 08/04/23 08:15 68 23 93 08/04/23 08:06 74 122/72 08/04/23 08:00 75 17 92 08/04/23 08:00 122/72 08/04/23 07:45 74 25 H 96 08/04/23 07:30 78 22 94 08/04/23 07:15 75 18 94 08/04/23 07:00 73 20 95 08/04/23 07:00 134/59 L 08/04/23 06:45 77 17 95 08/04/23 06:30 74 19 95 08/04/23 06:15 72 18 94 08/04/23 06:00 121/56 L 08/04/23 06:00 72 18 94 08/04/23 05:45 71 20 93 08/04/23 05:45 36.8 C 120/57 L 08/04/23 05:30 72 13 92 08/04/23 05:00 76 17 92 08/04/23 04:45 69 17 94 08/04/23 04:39 71 120/57 L 08/04/23 04:30 71 17 94 08/04/23 04:24 83 120/55 L 08/04/23 04:15 71 17 93 08/04/23 04:00 70 17 93 08/04/23 04:00 120/55 L 08/04/23 03:45 71 17 94 08/04/23 03:30 71 19 94 08/04/23 03:15 77 13 93 08/04/23 03:00 85 20 92 08/04/23 03:00 127/59 L 08/04/23 02:45 90 21 92 08/04/23 02:30 72 19 94 08/04/23 02:15 70 18 95 08/04/23 02:00 115/54 L 08/04/23 02:00 69 18 95 08/04/23 01:45 71 18 95 08/04/23 01:30 67 17 95 08/04/23 01:15 70 21 94 08/04/23 01:00 69 19 95 08/04/23 01:00 114/58 L 08/04/23 00:45 67 17 95 08/04/23 00:36 114/56 L 08/04/23 00:36 66 18 95 08/04/23 00:30 66 18 95 08/04/23 00:26 66 114/56 L 08/04/23 00:15 70 18 94 08/04/23 00:11 71 132/61 08/04/23 00:00 74 17 94 08/04/23 00:00 132/61 08/03/23 23:45 77 17 94 08/03/23 23:30 81 18 94 08/03/23 23:15 72 17 95 08/03/23 23:01 Nasal Cannula 3 08/03/23 23:00 36.9 C 74 18 95 08/03/23 23:00 118/58 L 08/03/23 22:45 71 18 96 08/03/23 22:30 69 17 96 Nasal Cannula 3 08/03/23 22:15 71 17 95 08/03/23 22:00 129/65 08/03/23 22:00 75 19 95 08/03/23 21:00 79 18 97 08/03/23 21:00 117/63 Coding Level of Care Code 50892 SUB INP/OBS CARE 3/50MIN Diagnoses Status post laparotomy Z98.890 Shock R57.9 Cholecystitis K81.9 Hypoxia R09.02
[2023-08-04] MEDS ORDERED: TPN/PPN CONSULT PHARMACY STA (10:12)
[2023-08-04] MEDS: SODIUM PHOSPHATE 30 MMOL in SODIUM CHLORIDE 0.9% 500 ML IV ONE (10:45)
--- NOTE | 2023-08-04 11:31 | Pharmacy Report ---
Pharmacy Initial PN Consult Nt - Date of Service August 04, 2023 - [facility] Pharmacy has been consulted on this date to manage parenteral nutrition orders and order appropriate labs. As part of the Nutrition Support Team Guidelines, pharmacy will work in conjunction with dietary when determining the patients caloric needs. - Subjective * The patient is a 83 year old Male admitted on 07/29/23 for acute cholecystitis, now s/p exp lap, cholecystectomy, extensive abdominal surgery, possible enterocutaneous fistula. * Patient is to receive parenteral nutrition for NPO status x 7 days, likely to require parenteral nutrition for extended time until enteral nutrition appropriate * Pertinent PMHx: * multiple SBOs * h/o hernia repair * h/o splenectomy * GERD * h/o atrial fibrillation * HTN * BPH * nephrolithiasis * h/o wedge resection - Objective Vascular Access: * Patient currently has a central line (PICC) Height & Weight (Last Documented) Height 5 ft 9 in Weight 105.9 kg Diet Order(s) 07/30/23 00:01 NPO Intake & Ouput (24hrs) 08/03/23 08/04/23 08/05/23 06:59 06:59 06:59 Intake Total 3373.333 / 3373.333 3325.833 / 3325.833 355.834 / 355.834 Output Total 5660 / 5660 3770 / 3770 900 / 900 Balance -2286.667 / -2286.667 -444.167 / -444.167 -544.166 / -544.166 Selected Laboratory Results 08/04/23 08/04/23 04:43 04:43 Sodium 142 Potassium 3.8 Chloride 98 Carbon Dioxide 39 H Anion Gap 5 BUN 28 H Creatinine 0.71 Est GFR ( Amer) 99.2 Est GFR (Non-Af Amer) 85.6 BUN/Creatinine Ratio 39.4 H Glucose 109 H Calcium 8.6 Phosphorus 2.2 L Magnesium 2.[address] - Follow Up Nutrition Assessment Start: 08/01/23 09:56 Freq: Status: Active Protocol: Document 08/04/23 10:49 WN (Rec: 08/04/23 10:56 WN [id number]) RD - Initial Nutrition Assessment Start: 08/01/23 09:43 Freq: Status: Active Protocol: Document 08/01/23 09:43 WN (Rec: 08/01/23 09:56 WN [id number]) - Assessment & Plan Assessment: * Appreciate dietitians recommendations for macronutrients. * Will initiate today's TPN using our Clinimix 4.25%/5% peripheral formulation. Will be using this formulation to lessen the dextrose load provided over the 1st 24 hrs given e-lyte abnormalities that have been resistant to repletion. This formulation may be run via PICC line. * Discussed fluid balance on multidisciplinary rounds this AM, goal is to have patient I/O balance slightly negative each day. Ongoing diuresis ordered. Wound vac in place, surgical drain and NGT also in place. * Chemistry reviewed: phos repletion underway at this time and will receive repletion outside of 1st TPN bag this evening due to phos limits within bag itself. Bicarb elevated on chemistry, likely contraction alkalosis from loop diuretics - will minimize acetate salts * Thiamine added to bag due to potential refeeding risks Plan: * For Day #1 of TPN administration, the following will be ordered: * Macronutrients: * Amino Acids: 43 grams/day * Dextrose: 50 grams/day * Lipids: 50 grams/day * Micronutrients: * TPN electrolytes: 0 mL/day - Contains 35 mEq Na, 20 mEq K, 4.5 mEq Ca, 5 mEq Mg, 35 mEq Cl, 29.5 mEq Acetate per 20 mL * Sodium phosphate: 0 mMol/day * Sodium chloride: 60 mEq/day * Sodium acetate: 0 mEq/day * Potassium phosphate: 15 mMol/day * Potassium chloride: 60 mEq/day * Potassium acetate: 0 mEq/day * Magnesium sulfate: 16.24 mEq/day * Calcium gluconate: 2.32 mEq/day * Multivitamins: 10 mL/day * Trace elements: 1 mL/day * Thiamine: 100 mg/day * Folic Acid: 1 mg/day * Total volume of 1330 mL (1080mL from AA/Dextrose + 250mL lipids) will be infused over 24 hours and will provide 840 kcal/day (8kcal/kg/day) * Final osmolarity of current solution is 899.5 mOsm/L. This can be run peripherally or centrally however central infusion preferred. * Labs will be ordered per PN protocol. * Pharmacy will follow and adjust PN orders on a daily basis. Thank you!
--- NOTE | 2023-08-04 14:02 | Hospitalist Progress Note ---
Date of Service August 04, 2023 Assessment & Plan (1) Shock: Plan: Most likely septic shock post surgery Resolved Off of pressors Will keep antihypertensives on hold since her blood pressure still soft. Antibiotics: Flagyl, cefepime, caspofungin Gallbladder fluid growing Klebsiella and Clostridium perfringens White count still slightly elevated today. Surgery involved. (2) Endotracheally intubated: Plan: Extubated 5/6 On 3 L OxyMask (3) Status post laparotomy: Plan: Initially patient was thought to have acute cholecystitis. Went to the OR for laparoscopic cholecystectomy was converted to exploratory laparotomy, bowel resection. 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 Wound VAC placed NG tube in place PICC line in place TPN will be started today as the patient expected to be n.p.o. (4) Cholecystitis: Plan: Status post gallbladder removal On antibiotics that we will cover (5) Gastroesophageal reflux disease: Plan: Continue famotidine (6) History of intestinal obstruction: Plan: History of small bowel obstruction in the past Plan VTE Prophylaxis: heparin 3 times daily Diet - NPO Transfer out of the ICU Admission and Anticipated Discharge Date Admission Date: July 29, 2023 Subjective Patient's mentation is clearing. Able to speak more clearly. Denies chest pain or shortness of breath. Review of Systems Review of Systems: All systems reviewed & are unremarkable except as noted in Subjective Physical Exam Physical Exam: General: Awake. Able to converse. Oxy mask on. NG tube in place Heart: S1, S2/regular rate and rhythm, no murmur rubs or gallops Lungs: Clear to auscultation Abdomen: Wound VAC in place Extremities: No clubbing/cyanosis. No edema Behavior: Appropriate, cooperative Results & Data Results & Data Vital Signs (Past 12 Hours) Vital Signs Temp Pulse Resp BP Pulse Ox O2 Del Method O2 Flow Rate 08/04/23 13:14 70 130/68 08/04/23 12:24 36.7 C 08/04/23 12:15 81 21 94 08/04/23 12:00 115/62 08/04/23 12:00 80 16 94 08/04/23 11:45 85 24 92 08/04/23 11:30 82 27 H 91 08/04/23 11:15 87 19 89 L 08/04/23 11:00 84 22 90 08/04/23 11:00 124/63 08/04/23 10:45 82 22 91 08/04/23 10:30 81 19 89 L 08/04/23 10:15 83 25 H 93 08/04/23 10:00 111/57 L 08/04/23 10:00 75 35 H 94 08/04/23 09:45 79 23 94 08/04/23 09:30 75 17 94 08/04/23 09:15 75 20 94 Nasal Cannula 3 08/04/23 09:10 67 125/62 08/04/23 09:00 72 17 95 Nasal Cannula 3 08/04/23 09:00 125/63 08/04/23 09:00 74 08/04/23 08:45 73 17 92 Nasal Cannula 3 08/04/23 08:33 36.7 C 08/04/23 08:30 73 16 94 Nasal Cannula 3 08/04/23 08:15 68 23 93 08/04/23 08:06 74 122/72 08/04/23 08:00 75 17 92 08/04/23 08:00 122/72 08/04/23 07:45 74 25 H 96 08/04/23 07:30 78 22 94 08/04/23 07:15 75 18 94 08/04/23 07:00 73 20 95 08/04/23 07:00 134/59 L 08/04/23 06:45 77 17 95 08/04/23 06:30 74 19 95 08/04/23 06:15 72 18 94 08/04/23 06:00 121/56 L 08/04/23 06:00 72 18 94 08/04/23 05:45 71 20 93 08/04/23 05:45 36.8 C 120/57 L 08/04/23 05:30 72 13 92 08/04/23 05:00 76 17 92 08/04/23 04:45 69 17 94 08/04/23 04:39 71 120/57 L 08/04/23 04:30 71 17 94 08/04/23 04:24 83 120/55 L 08/04/23 04:15 71 17 93 08/04/23 04:00 70 17 93 08/04/23 04:00 120/55 L 08/04/23 03:45 71 17 94 08/04/23 03:30 71 19 94 08/04/23 03:15 77 13 93 05/09/24 03:00 85 20 92 08/04/23 03:00 127/59 L 08/04/23 02:45 90 21 92 08/04/23 02:30 72 19 94 08/04/23 02:15 70 18 95 08/04/23 02:00 115/54 L 08/04/23 02:00 69 18 95 Laboratory Results Abnormal lab results 08/03/23 08/04/23 08/04/23 Range/Units 23:59 00:02 04:43 WBC 15.47 H (4.8-10.8) K/ul RBC 4.14 L (4.70-6.10) M/uL Hgb 11.9 L (14.0-18.0) g/dl Hct 36.0 L (42.0-52.0) % Carbon Dioxide 39 H (21-32) mmol/L BUN 28 H (6-23) mg/dl BUN/Creatinine Ratio 39.4 H (10-20) Glucose 109 H (70-99(Fasting)) mg/dl POC Glucose 69 L* 105 H (70-99) mg/dl Phosphorus 2.2 L (2.5-4.9) mg/dl 08/04/23 08/04/23 Range/Units 07:57 11:49 WBC (4.8-10.8) K/ul RBC (4.70-6.10) M/uL Hgb (14.0-18.0) g/dl Hct (42.0-52.0) % Carbon Dioxide (21-32) mmol/L BUN (6-23) mg/dl BUN/Creatinine Ratio (10-20) Glucose (70-99(Fasting)) mg/dl POC Glucose 101 H 117 H (70-99) mg/dl Phosphorus (2.5-4.9) mg/dl PG Care Time/CCT Total # of Minutes Spent Total Time Spent with Patient: Total time spent is greater than 50% in coordination of care (as documented) at patient's floor/unit and/or counseling patient: Coding Level of Care Code 07062 SUB INP/OBS CARE 2/35MIN Diagnoses Shock R57.9 Endotracheally intubated Z97.8 Status post laparotomy Z98.890 Cholecystitis K81.9 Gastroesophageal reflux disease K21.9 History of intestinal obstruction Z87.19
--- NOTE | 2023-08-04 14:15 | Hospitalist Progress Note ---
Date of Service August 04, 2023 Assessment & Plan Admission and Anticipated Discharge Date Admission Date: July 29, 2023 Physical Exam Physical Exam: General- adult Head- atraumatic Eyes- PERRL, EOMI, anicteric ENT- oropharynx clear Neck- supple, no JVD, no adenopathy, no thyromegaly; carotids +2/2, no bruits appreciated Lungs- clear to auscultation and percussion Heart- regular rhythm; no murmur, no gallop, no rub appreciated Abdomen- normal bowel sounds, soft, nontender, no masses or hepatosplenomegaly Extremities- no pretibial edema, no calf tenderness; peripheral pulses intact Neuro- alert, oriented x 3; PERRL, EOMI; no facial palsy; no dysarthria; motor 5/5 bilaterally; no cogwheel rigidity; patellar DTRs +2/2; toes downgoing bilaterally; finger to nose intact bilaterally Skin- warm & dry Results & Data Results & Data Vital Signs (Past 12 Hours) Vital Signs Temp Pulse Resp BP Pulse Ox O2 Del Method O2 Flow Rate 08/04/23 13:14 70 130/68 08/04/23 12:24 36.7 C 08/04/23 12:15 81 21 94 08/04/23 12:00 115/62 08/04/23 12:00 80 16 94 08/04/23 11:45 85 24 92 08/04/23 11:30 82 27 H 91 08/04/23 11:15 87 19 89 L 08/04/23 11:00 84 22 90 08/04/23 11:00 124/63 08/04/23 10:45 82 22 91 08/04/23 10:30 81 19 89 L 08/04/23 10:15 83 25 H 93 08/04/23 10:00 111/57 L 08/04/23 10:00 75 35 H 94 08/04/23 09:45 79 23 94 08/04/23 09:30 75 17 94 08/04/23 09:15 75 20 94 Nasal Cannula 3 08/04/23 09:10 67 125/62 08/04/23 09:00 72 17 95 Nasal Cannula 3 08/04/23 09:00 125/63 08/04/23 09:00 74 08/04/23 08:45 73 17 92 Nasal Cannula 3 08/04/23 08:33 36.7 C 08/04/23 08:30 73 16 94 Nasal Cannula 3 08/04/23 08:15 68 23 93 08/04/23 08:06 74 122/72 08/04/23 08:00 75 17 92 08/04/23 08:00 122/72 08/04/23 07:45 74 25 H 96 08/04/23 07:30 78 22 94 08/04/23 07:15 75 18 94 08/04/23 07:00 73 20 95 08/04/23 07:00 134/59 L 08/04/23 06:45 77 17 95 08/04/23 06:30 74 19 95 08/04/23 06:15 72 18 94 08/04/23 06:00 121/56 L 08/04/23 06:00 72 18 94 08/04/23 05:45 71 20 93 08/04/23 05:45 36.8 C 120/57 L 08/04/23 05:30 72 13 92 08/04/23 05:00 76 17 92 08/04/23 04:45 69 17 94 08/04/23 04:39 71 120/57 L 08/04/23 04:30 71 17 94 08/04/23 04:24 83 120/55 L 08/04/23 04:15 71 17 93 08/04/23 04:00 70 17 93 08/04/23 04:00 120/55 L 08/04/23 03:45 71 17 94 08/04/23 03:30 71 19 94 08/04/23 03:15 77 13 93 08/04/23 03:00 85 20 92 08/04/23 03:00 127/59 L 08/04/23 02:45 90 21 92 08/04/23 02:30 72 19 94 08/04/23 02:15 70 18 95 PG Care Time/CCT Total # of Minutes Spent Total Time Spent with Patient: Total time spent is greater than 50% in coordination of care (as documented) at patient's floor/unit and/or counseling patient: Coding
[2023-08-04] MEDS ORDERED: DEXTROSE 10% 1,000 ML IV PRN (16:00)
[2023-08-04] MEDS: CLINOLIPID 20% IV FAT EMULSION 250 ML IV SCH (16:32)
[2023-08-04] MEDS: [UNRECOGNIZED DRUG - OTHER] IV SCH (16:33)
[2023-08-04] MEDS: PERIPHERAL TPN IV SCH (16:33)
[2023-08-04] MEDS: TPN/PPN CONSULT PHARMACY STA (16:50)
[2023-08-04] MEDS: SODIUM PHOSPHATE 30 MMOL in SODIUM CHLORIDE 0.9% 500 ML IV SCH (20:33)
[2023-08-05] MEDS: STOP CLINOLIPID SCH ×2 (00:20→22:28)
[2023-08-05 06:30] LABS: Hematocrit (blood only) 32.4 % (42.0-52.0); Hemoglobin 10.7 g/dl (14.0-18.0); Mean Corpuscular Hemoglobin 28.9 pg (25.0-34.0); Mean Corpuscular Volume 87.6 fL (80.0-100.0); Mean Platelet Volume 10.6 fL (9.4-12.4); Platelet Count 258 K/uL (130-400); RDW Standard Deviation 48.4 fL (36.4-46.3); White Blood Count 15.95 K/ul (4.8-10.8)
[2023-08-05 06:41] LABS: BUN Creatinine Ratio 65.7 (10-20); Calcium 8.3 mg/dl (8.6-10.3); Creatinine Clr Calc Pharmacy 96.8 ml/min; Est GFR (African American) 101.5 ml/min; Est GFR (Non-African American) 87.6 ml/min; Magnesium 2.1 mg/dl (1.7-2.4); Phosphorus 2.8 mg/dl (2.5-4.9); Potassium 4.1 mmol/L (3.5-5.1)
[2023-08-05] MEDS ORDERED: TPN/PPN CONSULT PHARMACY PRN (07:58)
--- NOTE | 2023-08-05 08:28 | Surgery Progress Note ---
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 Lin covering for weekend Admission and Anticipated Discharge Date Admission Date: July 29, 2023 Subjective pt seen. resting comfortably. denies abd pain. Physical Exam Physical Exam: alert. more oriented this am. nad abd: vac in place. output serosanguinous. ( no bile seen). CRICKET with serous output. Results & Data Vital Signs (Past 12 Hours) Vital Signs Temp Pulse Pulse Resp BP BP BP 08/05/23 07:16 36.6 C 99 H 18 131/76 08/05/23 06:08 97 H 118/64 08/05/23 04:26 88 121/68 08/05/23 03:48 36.7 C 88 18 121/69 08/05/23 02:08 91 H 136/72 08/05/23 00:59 85 142/76 H 08/04/23 23:47 36.8 C 85 18 144/81 H 08/04/23 22:03 82 08/04/23 22:00 08/04/23 21:42 78 128/72 08/04/23 20:33 83 134/75 Pulse Ox O2 Del Method O2 Flow Rate 08/05/23 07:16 94 Nasal Cannula 3 08/05/23 06:08 08/05/23 04:26 08/05/23 03:48 92 Nasal Cannula 3 08/05/23 02:08 08/05/23 00:59 08/04/23 23:47 92 Nasal Cannula 3 08/04/23 22:03 08/04/23 22:00 Nasal Cannula 3 08/04/23 21:42 08/04/23 20:33 PG Care Time/CCT Total # of Minutes Spent Total Time Spent with Patient: Total time spent is greater than 50% in coordination of care (as documented) at patient's floor/unit and/or counseling patient: Coding Level of Care Code 23657 Post Operative Follow-Up Diagnoses 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
--- NOTE | 2023-08-05 10:45 | Hospitalist Progress Note ---
Date of Service August 05, 2023 Assessment & Plan (1) Shock: Plan: Most likely septic shock post surgery Resolved Off of pressors Will keep antihypertensives on hold since the blood pressure still soft. 118/64-131/76 this morning 08/04 Antibiotics: Flagyl, cefepime, caspofungin Gallbladder fluid growing Klebsiella and Clostridium perfringens White count still slightly elevated today at 15.47 (down from 20.38 on 07/29) Surgery involved. (2) Endotracheally intubated: Plan: Extubated 07/31 On 3 L/m nasal canula Sa02 91-94% (3) Status post laparotomy: Plan: Initially patient was thought to have acute cholecystitis. Went to the OR for laparoscopic cholecystectomy was converted to exploratory laparotomy, bowel resection. 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 Wound VAC placed NG tube in place, decreased output this morning PICC line in place TPN will be started 08/03 as the patient for nutritional support (4) Cholecystitis: Plan: Status post gallbladder removal On antibiotics that we will cover (5) Gastroesophageal reflux disease: Plan: Continue famotidine (6) History of intestinal obstruction: Plan: History of small bowel obstruction in the past Plan VTE Prophylaxis: heparin 3 times daily Diet - NPO Transfered out of the ICU Admission and Anticipated Discharge Date Admission Date: July 29, 2023 Subjective pt seen. resting comfortably. denies abd pain. Awake, alert, answering basic questions. As per nursing, has started to pass flatus Physical Exam Constitutional: WD/WN, vitals as above ENMT: external ear and nose normal, oropharynx normal Respiratory: normal respiratory effort, lungs clear to auscultation Cardiovascular: RRR, no murmur, no edema Gastrointestinal (Abdomen): Inspection/Auscultation: abdomen normal to inspection; abdomen not distended Percussion/Palpation: + abdomen tender (RUQ pain on deep palpation) and abdomen soft; no guarding and abdomen not rigid scattered BS Skin: no rashes, warm and dry Neurologic: moves all extremities and awake; not confused Psychiatric: A+Ox3, euthymic affect Results & Data Results & Data Vital Signs (Past 12 Hours) Vital Signs Temp Pulse Pulse Resp BP BP BP 08/05/23 10:25 99 H 08/05/23 07:16 36.6 C 99 H 18 131/76 08/05/23 06:08 97 H 118/64 08/05/23 04:26 88 121/68 08/05/23 03:48 36.7 C 88 18 121/69 08/05/23 02:08 91 H 136/72 08/05/23 00:59 85 142/76 H 08/04/23 23:47 36.8 C 85 18 144/81 H Pulse Ox O2 Del Method O2 Flow Rate 08/05/23 10:25 08/05/23 07:16 94 Nasal Cannula 3 08/05/23 06:08 08/05/23 04:26 08/05/23 03:48 92 Nasal Cannula 3 08/05/23 02:08 08/05/23 00:59 08/04/23 23:47 92 Nasal Cannula 3 Laboratory Results WBC 15.95 Hgb 10.7 Medications Administered started on TPN 08/04 will add Protonix IV as prophylaxis PG Care Time/CCT Total # of Minutes Spent Total Time Spent with Patient: Total time spent is greater than 50% in coordination of care (as documented) at patient's floor/unit and/or counseling patient: Coding Level of Care Code 68995 SUB INP/OBS CARE 2/35MIN Diagnoses Shock R57.9 Endotracheally intubated Z97.8 Status post laparotomy Z98.890 Cholecystitis K81.9 Gastroesophageal reflux disease K21.9 History of intestinal obstruction Z87.19 Time Spent (min) 45
[2023-08-05] MEDS: PANTOprazole 40 MG in SYRINGE 0 ML IV SCH (13:01)
[2023-08-05 15:12] LABS: Hematocrit (blood only) 31.4 % (42.0-52.0); Hemoglobin 10.3 g/dl (14.0-18.0); Mean Corpuscular Hemoglobin 28.7 pg (25.0-34.0); Mean Corpuscular Hgb Conc 32.8 g/dL (32.0-36.0); Mean Corpuscular Volume 87.5 fL (80.0-100.0); Mean Platelet Volume 10.7 fL (9.4-12.4); Nucleated RBC # (auto) 0.02 K/uL (0.00-0.12); Nucleated RBC % (auto) 0.1 %; Platelet Count 284 K/uL (130-400); RDW Coefficient of Variation 15.4 % (11.5-14.5); RDW Standard Deviation 49.2 fL (36.4-46.3); Red Blood Count 3.59 M/uL (4.70-6.10); White Blood Count 20.56 K/ul (4.8-10.8)
[2023-08-05] MEDS: CLINOLIPID 20% IV FAT EMULSION 250 ML IV SCH (15:46)
[2023-08-05] MEDS: [UNRECOGNIZED DRUG - OTHER] IV SCH (15:47)
[2023-08-05] MEDS: CENTRAL TPN IV SCH (15:47)
--- NOTE | 2023-08-05 15:50 | Pharmacy Report ---
Pharmacy PN Follow-up Note - Date of Service August 05, 2023 - Subjective Patient is currently on day #2 of TPN for extended NPO - Objective Height & Weight (Last Documented) Height 5 ft 9 in Weight 106.1 kg Diet Order(s) 07/30/23 00:01 NPO Intake & Ouput (24hrs) 08/04/23 08/05/23 08/06/23 06:59 06:59 06:59 Intake Total 3325.833 / 3325.833 2625.834 / 2625.834 460 / 460 Output Total 3770 / 3770 3150 / 3150 Balance -444.167 / -444.167 -524.166 / -524.166 460 / 460 Selected Laboratory Results 08/05/23 05:31 Sodium 144 Potassium 4.1 Chloride 105 Carbon Dioxide 36 H Anion Gap 3 BUN 44 H Creatinine 0.67 Est GFR ( Amer) 101.5 Est GFR (Non-Af Amer) 87.6 BUN/Creatinine Ratio 65.7 H Glucose 157 H Calcium 8.3 L Phosphorus 2.8 Magnesium 2.1 - Assessment & Plan Assessment: * Advanced TPN today to allow patient to get more calories but not advanced to goal yet. Total fluids in today's bag will be 200 ml more than yesterday. * Today's bag formulation is for central line administration only- patient has a PICC line. * Increased Phosphate electrolyte amount added to bag today compared to yesterday to continue to prevent re-feeding. Plan: * For Day #2 of TPN administration, the following will be ordered: * Macronutrients: * Amino Acids: 96 grams/day * Dextrose: 168 grams/day * Lipids: 50 grams/day * Micronutrients: * TPN electrolytes: none Contains 35 mEq Na, 20 mEq K, 4.5 mEq Ca, 5 mEq Mg, 35 mEq Cl, 29.5 mEq Acetate per 20 mL * Sodium phosphate: 30 mMol/day * Sodium chloride: 40 mEq/day * Sodium acetate: 0 mEq/day * Potassium phosphate: 30 mMol/day * Potassium chloride: 40 mEq/day * Potassium acetate: 0 mEq/day * Magnesium sulfate: 12.18 mEq/day * Calcium gluconate: 2.3 mEq/day * Multivitamins: 10 mL/day * Trace elements: 1 mL/day * Thiamine: 100 mg/day * Folic Acid: 1 mg/day * Total volume of 1276.2 ml will be infused over 24 hours and will provide 1455 kcal/day * Labs will be ordered per PN protocol. * Pharmacy will follow and adjust PN orders on a daily basis. Thank you!
[2023-08-06 07:26] LABS: Hematocrit (blood only) 29.2 % (42.0-52.0); Hemoglobin 9.6 g/dl (14.0-18.0); Mean Corpuscular Hemoglobin 28.6 pg (25.0-34.0); Mean Corpuscular Hgb Conc 32.9 g/dL (32.0-36.0); Mean Corpuscular Volume 86.9 fL (80.0-100.0); Platelet Count 284 K/uL (130-400); RDW Coefficient of Variation 15.2 % (11.5-14.5); RDW Standard Deviation 48.3 fL (36.4-46.3); Red Blood Count 3.36 M/uL (4.70-6.10); White Blood Count 19.54 K/ul (4.8-10.8)
[2023-08-06 07:34] LABS: BUN Creatinine Ratio 66.7 (10-20); Calcium 8.4 mg/dl (8.6-10.3); Creatinine Clr Calc Pharmacy 102.8 ml/min; Est GFR (African American) 104.1 ml/min; Est GFR (Non-African American) 89.9 ml/min; Magnesium 2.2 mg/dl (1.7-2.4); Phosphorus 2.4 mg/dl (2.5-4.9); Potassium 3.8 mmol/L (3.5-5.1)
[2023-08-06 08:08] LABS: Basophils # (auto) 0.12 K/uL (0.00-0.20); Basophils % (auto) 0.6 %; Immature Granulocytes # (auto) 1.33 K/uL (0.01-0.20); Immature Granulocytes % (auto) 6.8 %; Lymphocytes # (auto) 1.91 K/uL (1.20-3.40); Lymphocytes % (auto) 9.8 %; Monocytes # (auto) 2.11 K/uL (0.11-0.59); Monocytes % (auto) 10.8 %; Neutrophils # (auto) 13.67 K/uL (1.40-6.50); RBC Morphology Unremarkable
--- NOTE | 2023-08-06 08:54 | Hospitalist Progress Note ---
Date of Service August 06, 2023 Assessment & Plan (1) Shock: Plan: Most likely septic shock post surgery Resolved Off of pressors Will keep antihypertensives on hold since the blood pressure still soft. 131/83-147/71 this morning 08/05 Antibiotics: Flagyl, cefepime 2 gms q8h, caspofungin Gallbladder fluid growing Klebsiella and Clostridium perfringens White count still slightly elevated past 24 hrs 15.95-->20.56-->19.54 Surgery involved. reviewed with nursing (2) Endotracheally intubated: Plan: Extubated 07/31 On 3 L/m nasal canula Sa02 92-96% (3) Status post laparotomy: Plan: Initially patient was thought to have acute cholecystitis. Went to the OR for laparoscopic cholecystectomy was converted to exploratory laparotomy, bowel resection. 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 Wound VAC placed was draining dark fluid, Hgb rechecked, 08/05 9.[address], decreased output this morning PICC line in place TPN was started 08/03 as the patient for nutritional support malnutrition (4) Cholecystitis: Plan: Status post gallbladder removal Remains on antibiotics (5) Gastroesophageal reflux disease: Plan: Was on famotidine on admisison, now on IV Protonix (6) History of intestinal obstruction: Plan: History of small bowel obstruction in the past Plan VTE Prophylaxis: Was on heparin 3 times daily, when noted coffee ground from drain and heparin placed on hold (08/04), will order SCD Diet - NPO Transferred out of the ICU Admission and Anticipated Discharge Date Admission Date: July 29, 2023 Subjective pt seen. resting comfortably. denies abd pain. Awake, alert, answering basic questions. More alert when compared to yesterday, voice stronger. As per nursing, mentation can vary throughout day As per nursing, has started to pass flatus Physical Exam Constitutional: WD/WN, vitals as above ENMT: external ear and nose normal, oropharynx normal Respiratory: normal respiratory effort, lungs clear to auscultation Cardiovascular: RRR, no murmur, no edema Gastrointestinal (Abdomen): Inspection/Auscultation: abdomen normal to inspection; abdomen not distended Percussion/Palpation: + abdomen tender (RUQ pain on deep palpation) and abdomen soft; no guarding and abdomen not rigid BS more active, surgical incision noted Skin: no rashes, warm and dry Neurologic: moves all extremities and awake; not confused Psychiatric: A+Ox3, euthymic affect Results & Data Results & Data Vital Signs (Past 12 Hours) Vital Signs Temp Pulse Pulse Resp BP BP Pulse Ox 08/06/23 08:19 36.4 C L 131 H 19 131/83 96 08/06/23 07:55 93 H 08/06/23 07:55 08/06/23 04:54 86 140/70 08/06/23 04:41 36.9 C 92 H 18 147/71 H 92 08/06/23 04:39 98 H 147/71 H 08/06/23 01:18 93 H 142/69 H 08/06/23 00:49 90 123/61 08/05/23 22:41 36.9 C 104 H 19 119/54 L 93 08/05/23 21:14 99 H 08/05/23 21:10 O2 Del Method O2 Flow Rate 08/06/23 08:19 Nasal Cannula 3.0 08/06/23 07:55 08/06/23 07:55 Nasal Cannula 3 08/06/23 04:54 08/06/23 04:41 Nasal Cannula 3 08/06/23 04:39 08/06/23 01:18 08/06/23 00:49 08/05/23 22:41 Nasal Cannula 3 08/05/23 21:14 08/05/23 21:10 Nasal Cannula 3 PG Care Time/CCT Total # of Minutes Spent Total Time Spent with Patient: Total time spent is greater than 50% in coordination of care (as documented) at patient's floor/unit and/or counseling patient: Coding Level of Care Code 53753 SUB INP/OBS CARE 2/35MIN Diagnoses Shock R57.9 Endotracheally intubated Z97.8 Status post laparotomy Z98.890 Cholecystitis K81.9 Gastroesophageal reflux disease, unspecified whether esophagitis present K21.9 Esophagitis presence: esophagitis presence not specified History of intestinal obstruction Z87.19 (5) Gastroesophageal reflux disease Esophagitis presence: esophagitis presence not specified Qualified Code(s): K21.9 - Gastro-esophageal reflux disease without esophagitis
--- NOTE | 2023-08-06 09:23 | Surgery Progress Note ---
Date of Service August 06, 2023 Assessment & Plan (1) Enterocutaneous fistula: Plan: Continue TPN/NPO/NGT Continue wound vac Will continue to follow along Admission and Anticipated Discharge Date Admission Date: July 29, 2023 Subjective Pt seen and examined. Denies abdominal pain. Afebrile. NGT in place. Physical Exam Constitutional: WD/WN, vitals as above Gastrointestinal (Abdomen): Wound vac in place with some bilious drainage soft, mild distension, mild TTP Results & Data Vital Signs (Past 12 Hours) Vital Signs Temp Pulse Pulse Resp BP BP Pulse Ox 08/06/23 08:53 131 H 131/83 08/06/23 08:19 36.4 C L 131 H 19 131/83 96 08/06/23 07:55 93 H 08/06/23 07:55 08/06/23 04:54 86 140/70 08/06/23 04:41 36.9 C 92 H 18 147/71 H 92 08/06/23 04:39 98 H 147/71 H 08/06/23 01:18 93 H 142/69 H 08/06/23 00:49 90 123/61 08/05/23 22:41 36.9 C 104 H 19 119/54 L 93 O2 Del Method O2 Flow Rate 08/06/23 08:53 08/06/23 08:19 Nasal Cannula 3.0 08/06/23 07:55 08/06/23 07:55 Nasal Cannula 3 08/06/23 04:54 08/06/23 04:41 Nasal Cannula 3 08/06/23 04:39 08/06/23 01:18 08/06/23 00:49 08/05/23 22:41 Nasal Cannula 3 PG Care Time/CCT Total # of Minutes Spent Total Time Spent with Patient: Total time spent is greater than 50% in coordination of care (as documented) at patient's floor/unit and/or counseling patient: Coding Level of Care Code 64816 Post Operative Follow-Up Diagnoses 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
[2023-08-06] MEDS: CLINOLIPID 20% IV FAT EMULSION 250 ML IV SCH (16:01)
[2023-08-06] MEDS: [UNRECOGNIZED DRUG - OTHER] IV SCH (16:02)
[2023-08-06] MEDS: CENTRAL TPN IV SCH (16:02)
--- NOTE | 2023-08-06 16:51 | Electrocardiogram Report ---
Test Reason : Blood Pressure : / mmHG Vent. Rate : 150 BPM Atrial Rate : 133 BPM P-R Int : 000 ms QRS Dur : 076 ms QT Int : 296 ms P-R-T Axes : 000 -14 -14 degrees QTc Int : 467 ms Atrial fibrillation with rapid ventricular response Low voltage QRS Nonspecific ST and T wave abnormality Abnormal ECG Confirmed by Edmund Canales ([id number]) on 08/06/2023 4:51:12 PM Referred By: REFERRED SELF Confirmed By:Mk Canales
[2023-08-06] MEDS: STOP CLINOLIPID ONE (23:22)
[2023-08-07 06:48] LABS: Hematocrit (blood only) 31.2 % (42.0-52.0); Hemoglobin 10.2 g/dl (14.0-18.0); Mean Corpuscular Hemoglobin 29.1 pg (25.0-34.0); Mean Corpuscular Hgb Conc 32.7 g/dL (32.0-36.0); Mean Corpuscular Volume 88.9 fL (80.0-100.0); Mean Platelet Volume 11.1 fL (9.4-12.4); Nucleated RBC # (auto) 0.02 K/uL (0.00-0.12); Nucleated RBC % (auto) 0.1 %; Platelet Count 321 K/uL (130-400); RDW Coefficient of Variation 15.5 % (11.5-14.5); RDW Standard Deviation 50.4 fL (36.4-46.3); Red Blood Count 3.51 M/uL (4.70-6.10); White Blood Count 20.09 K/ul (4.8-10.8)
[2023-08-07 07:12] LABS: Albumin Globulin Ratio 0.9 (0.9-2); Albumin Level 2.4 gm/dl (3.4-5.0); BUN Creatinine Ratio 61.5 (10-20); Bilirubin,Total 0.4 mg/dl (0.2-1.0); Calcium 8.5 mg/dl (8.6-10.3); Creatinine Clr Calc Pharmacy 99.6 ml/min; Est GFR (African American) 102.8 ml/min; Est GFR (Non-African American) 88.7 ml/min; Globulin 2.6 gm/dl (2.5-4.0); Magnesium 2.1 mg/dl (1.7-2.4); Phosphorus 3.4 mg/dl (2.5-4.9)
[2023-08-07 07:20] LABS: Basophils # (auto) 0.14 K/uL (0.00-0.20); Basophils % (auto) 0.7 %; Eosinophils # (auto) 0.74 K/uL (0.00-0.50); Eosinophils % (auto) 3.7 %; Immature Granulocytes # (auto) 1.26 K/uL (0.01-0.20); Immature Granulocytes % (auto) 6.3 %; Lymphocytes # (auto) 1.96 K/uL (1.20-3.40); Lymphocytes % (auto) 9.8 %; Monocytes # (auto) 1.55 K/uL (0.11-0.59); Monocytes % (auto) 7.7 %; Neutrophils # (auto) 14.44 K/uL (1.40-6.50); Neutrophils % (auto) 71.8 %
--- NOTE | 2023-08-07 08:50 | Surgery Progress Note ---
Date of Service August 07, 2023 Assessment & Plan (1) Enterocutaneous fistula: Plan: Continue TPN/NPO/NGT Continue wound vac, he does have some drainage from the inferior part of his dressing and reinforce as needed as he will have this changed tomorrow Will continue to follow along Admission and Anticipated Discharge Date Admission Date: July 29, 2023 Subjective Patient seen and examined. No acute events overnight. No nausea or vomiting. Denies abdominal pain. Physical Exam Constitutional: WD/WN, vitals as above Gastrointestinal (Abdomen): Wound vac in place with some bilious drainage soft, mild distension, mild TTP Results & Data Vital Signs (Past 12 Hours) Vital Signs Temp Pulse Pulse Resp BP BP Pulse Ox 08/07/23 07:44 36.7 C 85 18 120/68 96 08/07/23 05:48 80 134/84 08/07/23 05:33 82 128/78 08/07/23 03:20 36.9 C 86 18 130/82 95 08/06/23 23:51 80 136/77 08/06/23 23:36 80 136/77 08/06/23 23:07 37.2 C 90 18 123/65 94 08/06/23 22:12 08/06/23 21:50 84 O2 Del Method O2 Flow Rate 08/07/23 07:44 Nasal Cannula 3.0 08/07/23 05:48 08/07/23 05:33 08/07/23 03:20 Nasal Cannula 3 08/06/23 23:51 08/06/23 23:36 08/06/23 23:07 Nasal Cannula 3 08/06/23 22:12 Nasal Cannula 3 08/06/23 21:50 PG Care Time/CCT Total # of Minutes Spent Total Time Spent with Patient: Total time spent is greater than 50% in coordination of care (as documented) at patient's floor/unit and/or counseling patient: Coding Level of Care Code 10361 Post Operative Follow-Up Diagnoses 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
--- NOTE | 2023-08-07 10:48 | Hospitalist Progress Note ---
Date of Service August 07, 2023 Assessment & Plan (1) Shock: Plan: Most likely septic shock post surgery Resolved Off of pressors Will keep antihypertensives on hold since the blood pressure still soft. 120/68 this morning 08/06 Antibiotics: Flagyl, cefepime 2 gms q8h, caspofungin Gallbladder fluid growing Klebsiella and Clostridium perfringens White count still slightly elevated past 24 hrs 15.95-->20.56-->19.54-->20.09 Surgery involved. wound vac drainage has decreased somewhat, but not resolved reviewed with nursing (2) Endotracheally intubated: Plan: Extubated 07/31 On 3 L/m nasal canula Sa02 92-96% (3) Status post laparotomy: Plan: Initially patient was thought to have acute cholecystitis. Went to the OR for laparoscopic cholecystectomy was converted to exploratory laparotomy, bowel resection. 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 Wound VAC placed was draining dark fluid, Hgb being followed NG tube in place, decreased output this morning PICC line in place TPN was started 08/03 as the patient for nutritional support malnutrition (4) Cholecystitis: Plan: Status post gallbladder removal Remains on antibiotics (5) Gastroesophageal reflux disease: Plan: Was on famotidine on admisison, now on IV Protonix (6) History of intestinal obstruction: Plan: History of small bowel obstruction in the past Plan VTE Prophylaxis: Was on heparin 3 times daily, when noted coffee ground from drain and heparin placed on hold (08/04), will order SCD Diet - NPO Transferred out of the ICU Admission and Anticipated Discharge Date Admission Date: July 29, 2023 Subjective Patient seen and examined. No acute events overnight. No nausea or vomiting. Denies abdominal pain. Looks better today, more attentive, asking to be allowed to drink liquids Physical Exam Constitutional: WD/WN, vitals as above ENMT: external ear and nose normal, oropharynx normal Respiratory: normal respiratory effort, lungs clear to auscultation Cardiovascular: RRR, no murmur, no edema Gastrointestinal (Abdomen): Inspection/Auscultation: abdomen normal to inspection; abdomen not distended Percussion/Palpation: + abdomen tender (RUQ pain on deep palpation) and abdomen soft; no guarding and abdomen not rigid BS more active, not yet passing significant amount of flatus Skin: no rashes, warm and dry Neurologic: moves all extremities and awake; not confused Psychiatric: A+Ox3, euthymic affect Results & Data Results & Data Vital Signs (Past 12 Hours) Vital Signs Temp Pulse Pulse Resp BP BP Pulse Ox 08/07/23 07:44 36.7 C 85 18 120/68 96 08/07/23 05:48 80 134/84 08/07/23 05:33 82 128/78 08/07/23 03:20 36.9 C 86 18 130/82 95 08/06/23 23:51 80 136/77 08/06/23 23:36 80 136/77 08/06/23 23:07 37.2 C 90 18 123/65 94 O2 Del Method O2 Flow Rate 08/07/23 07:44 Nasal Cannula 3.0 08/07/23 05:48 08/07/23 05:33 08/07/23 03:20 Nasal Cannula 3 08/06/23 23:51 08/06/23 23:36 08/06/23 23:07 Nasal Cannula 3 Laboratory Results WBC 20.09 Hgb 10.2 PG Care Time/CCT Total # of Minutes Spent Total Time Spent with Patient: Total time spent is greater than 50% in coordination of care (as documented) at patient's floor/unit and/or counseling patient: Coding Level of Care Code 52203 SUB INP/OBS CARE 2/35MIN Diagnoses Shock R57.9 Endotracheally intubated Z97.8 Status post laparotomy Z98.890 Cholecystitis K81.9 Gastroesophageal reflux disease, unspecified whether esophagitis present K21.9 Esophagitis presence: esophagitis presence not specified History of intestinal obstruction Z87.19 (5) Gastroesophageal reflux disease Esophagitis presence: esophagitis presence not specified Qualified Code(s): K21.9 - Gastro-esophageal reflux disease without esophagitis
[2023-08-07] MEDS: CLINOLIPID 20% IV FAT EMULSION 250 ML IV SCH (15:54)
[2023-08-07] MEDS: [UNRECOGNIZED DRUG - OTHER] IV SCH (15:54)
[2023-08-07] MEDS: CENTRAL TPN IV SCH (15:54)
[2023-08-07] MEDS: STOP CLINOLIPID ONE (22:00)
[2023-08-08 07:24] LABS: Basophils # (auto) 0.09 K/uL (0.00-0.20); Basophils % (auto) 0.5 %; Eosinophils % (auto) 2.7 %; Hematocrit (blood only) 32.6 % (42.0-52.0); Hemoglobin 10.5 g/dl (14.0-18.0); Immature Granulocytes # (auto) 0.59 K/uL (0.01-0.20); Immature Granulocytes % (auto) 3.1 %; Lymphocytes # (auto) 1.86 K/uL (1.20-3.40); Lymphocytes % (auto) 9.9 %; Mean Corpuscular Hemoglobin 28.6 pg (25.0-34.0); Mean Corpuscular Hgb Conc 32.2 g/dL (32.0-36.0); Mean Corpuscular Volume 88.8 fL (80.0-100.0); Mean Platelet Volume 10.9 fL (9.4-12.4); Monocytes # (auto) 1.27 K/uL (0.11-0.59); Monocytes % (auto) 6.7 %; Neutrophils # (auto) 14.53 K/uL (1.40-6.50); Neutrophils % (auto) 77.1 %; Nucleated RBC # (auto) 0.03 K/uL (0.00-0.12); Nucleated RBC % (auto) 0.2 %; Platelet Count 358 K/uL (130-400); RDW Coefficient of Variation 15.4 % (11.5-14.5); Red Blood Count 3.67 M/uL (4.70-6.10); White Blood Count 18.84 K/ul (4.8-10.8)
[2023-08-08 08:10] LABS: BUN Creatinine Ratio 59.4 (10-20); Calcium 8.5 mg/dl (8.6-10.3); Creatinine Clr Calc Pharmacy 101.2 ml/min; Est GFR (African American) 103.5 ml/min; Est GFR (Non-African American) 89.3 ml/min; Magnesium 2.1 mg/dl (1.7-2.4); Phosphorus 3.1 mg/dl (2.5-4.9); Potassium 4.1 mmol/L (3.5-5.1)
--- NOTE | 2023-08-08 09:08 | Surgery Progress Note ---
Date of Service August 08, 2023 Assessment & Plan (1) Enterocutaneous fistula: Plan: All things considered he is doing well. I would like to keep the NG tube a little bit longer if he can tolerate it. He is set for a wound VAC change today. WBCs down a little bit to 18,000 today. He has been afebrile. We will initiate some physical therapy today. Will need to continue n.p.o./TPN Admission and Anticipated Discharge Date Admission Date: July 29, 2023 Subjective Patient seen. Overall he looks well. He is denying any abdominal pain or nausea. He is more alert than he was last week sitting up watching TV. Physical Exam Constitutional: Alert and reasonably oriented Abdomen is soft and nontender. Wound VAC in place. Small amount of drainage from the inferior pole. The drainage appears primarily maroon with perhaps a little bit of bile tinged. CRICKET drain with small amount of serous output Results & Data Vital Signs (Past 12 Hours) Vital Signs Temp Pulse Pulse Resp BP BP Pulse Ox 08/08/23 08:00 94 H 08/08/23 08:00 08/08/23 07:19 36.6 C 97 H 16 117/74 96 08/08/23 04:33 88 121/67 08/08/23 04:10 91 H 141/85 H 08/08/23 02:46 36.8 C 100 H 19 148/78 H 95 08/08/23 00:30 91 H 116/89 08/08/23 00:15 92 H 127/62 08/07/23 22:00 99 H O2 Del Method O2 Flow Rate 08/08/23 08:00 08/08/23 08:00 Nasal Cannula 3 08/08/23 07:19 Nasal Cannula 3 08/08/23 04:33 08/08/23 04:10 08/08/23 02:46 Nasal Cannula 3 08/08/23 00:30 08/08/23 00:15 08/07/23 22:00 PG Care Time/CCT Total # of Minutes Spent Total Time Spent with Patient: Total time spent is greater than 50% in coordination of care (as documented) at patient's floor/unit and/or counseling patient: Coding Level of Care Code 10327 Post Operative Follow-Up Diagnoses 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
--- NOTE | 2023-08-08 11:44 | Hospitalist Progress Note ---
Date of Service August 08, 2023 Assessment & Plan (1) Shock: Plan: Most likely septic shock post surgery Resolved Off of pressors Will keep antihypertensives on hold since the blood pressure still soft. 117/74 this morning 08/07 Antibiotics: Flagyl, cefepime 2 gms q8h, caspofungin Gallbladder fluid growing Klebsiella and Clostridium perfringens White count still slightly elevated 15.95-->20.56-->19.54-->20.09-->18.84 Surgery involved. wound vac drainage has continue to decreased in volume, but not resolved, no longer as black Hgb holding steady 10.2-->10.5 reviewed with nursing (2) Endotracheally intubated: Plan: Extubated 07/31 On 3 L/m nasal canula Sa02 94-97% (3) Status post laparotomy: Plan: Initially patient was thought to have acute cholecystitis. Went to the OR for laparoscopic cholecystectomy was converted to exploratory laparotomy, bowel resection. 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 Wound VAC placed was draining dark fluid, Hgb being followed NG tube in place, continues to show decreased output PICC line in place TPN was started 08/03 as the patient for nutritional support malnutrition (4) Cholecystitis: Plan: Status post gallbladder removal Remains on antibiotics (5) Gastroesophageal reflux disease: Plan: Was on famotidine on admisison, now on IV Protonix (6) History of intestinal obstruction: Plan: History of small bowel obstruction in the past (7) Enterocutaneous fistula: Plan: Pt remains NPO, on TPN, drainage is slowing, to continue NG tube for now as per surgery Plan VTE Prophylaxis: Was on heparin 3 times daily, when noted coffee ground from drain and heparin placed on hold (08/04), will order SCD Diet - NPO to continue as per surgery Transferred out of the ICU Admission and Anticipated Discharge Date Admission Date: July 29, 2023 Subjective Patient seen. Overall he looks well. He is denying any abdominal pain or nausea. He is more alert than he was last week sitting up watching TV. Feels as if he needs to move bowels, starting to pass flatus Physical Exam Constitutional: WD/WN, vitals as above ENMT: external ear and nose normal, oropharynx normal Respiratory: normal respiratory effort, lungs clear to auscultation Cardiovascular: RRR, no murmur, no edema Gastrointestinal (Abdomen): Inspection/Auscultation: abdomen normal to inspection; abdomen not distended Percussion/Palpation: + abdomen tender (RUQ pain on deep palpation) and abdomen soft; no guarding and abdomen not rigid BS more active and noted throughout abd Skin: no rashes, warm and dry Neurologic: moves all extremities and awake; not confused Psychiatric: A+Ox3, euthymic affect Results & Data Results & Data Vital Signs (Past 12 Hours) Vital Signs Temp Pulse Pulse Resp BP BP Pulse Ox 08/08/23 09:50 90 08/08/23 09:18 94 H 117/74 08/08/23 08:00 94 H 08/08/23 08:00 08/08/23 07:19 36.6 C 97 H 16 117/74 96 08/08/23 04:33 88 121/67 08/08/23 04:10 91 H 141/85 H 08/08/23 02:46 36.8 C 100 H 19 148/78 H 95 08/08/23 00:30 91 H 116/89 08/08/23 00:15 92 H 127/62 O2 Del Method O2 Flow Rate 08/08/23 09:50 08/08/23 09:18 08/08/23 08:00 08/08/23 08:00 Nasal Cannula 3 08/08/23 07:19 Nasal Cannula 3 08/08/23 04:33 08/08/23 04:10 08/08/23 02:46 Nasal Cannula 3 08/08/23 00:30 08/08/23 00:15 Laboratory Results WBC 20.09-->18.84 PG Care Time/CCT Total # of Minutes Spent Total Time Spent with Patient: Total time spent is greater than 50% in coordination of care (as documented) at patient's floor/unit and/or counseling patient: Coding Level of Care Code 11155 SUB INP/OBS CARE 2/35MIN Diagnoses Shock R57.9 Endotracheally intubated Z97.8 Status post laparotomy Z98.890 Cholecystitis K81.9 Gastroesophageal reflux disease, unspecified whether esophagitis present K21.9 Esophagitis presence: esophagitis presence not specified History of intestinal obstruction Z87.19 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
[2023-08-08] MEDS: CENTRAL TPN IV SCH (16:04)
[2023-08-08] MEDS: CLINOLIPID 20% IV FAT EMULSION 250 ML IV SCH (16:04)
[2023-08-08] MEDS: [UNRECOGNIZED DRUG - OTHER] IV SCH (16:04)
[2023-08-08] MEDS: STOP CLINOLIPID ONE (22:04)
[2023-08-09 07:10] LABS: Albumin Level 2.6 gm/dl (3.4-5.0); BUN Creatinine Ratio 63.1 (10-20); Bilirubin Direct 0.2 mg/dl (0-0.2); Bilirubin,Total 0.5 mg/dl (0.2-1.0); Calcium 8.5 mg/dl (8.6-10.3); Creatinine Clr Calc Pharmacy 99.5 ml/min; Est GFR (African American) 102.8 ml/min; Est GFR (Non-African American) 88.7 ml/min; Magnesium 2.2 mg/dl (1.7-2.4); Phosphorus 3.2 mg/dl (2.5-4.9); Potassium 4.3 mmol/L (3.5-5.1); Total Protein 5.5 gm/dl (6.0-8.3)
--- NOTE | 2023-08-09 08:51 | Surgery Progress Note ---
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 spoke with for update. plan is rehab at some point. still need to keep ngt/npo/vac. Admission and Anticipated Discharge Date Admission Date: July 29, 2023 Subjective no complaints Review of Systems Respiratory: no dyspnea Gastrointestinal: no abdominal pain Physical Exam Physical Exam: awake alert Constitutional: cooperative and comfortable; no acute distress Gastrointestinal (Abdomen): Inspection/Auscultation: + abdominal surgical incision (wound vac in place ) and + abdominal surgical drain present Percussion/Palpation: + abdomen tender and abdomen soft Results & Data Vital Signs (Past 12 Hours) Vital Signs Temp Pulse Pulse Resp BP BP BP 08/09/23 07:48 98.2 F 94 H 18 127/71 08/09/23 05:39 87 08/09/23 05:24 98 H 125/80 08/09/23 03:32 98.1 F 98 H 18 125/80 08/09/23 00:16 98 H 08/09/23 00:01 87 119/76 08/08/23 23:32 98.8 F 87 18 119/76 08/08/23 21:18 08/08/23 20:54 94 H Pulse Ox O2 Del Method O2 Flow Rate 08/09/23 07:48 97 Nasal Cannula 3.0 08/09/23 05:39 08/09/23 05:24 08/09/23 03:32 98 Nasal Cannula 3 08/09/23 00:16 08/09/23 00:01 08/08/23 23:32 99 Nasal Cannula 3 08/08/23 21:18 Nasal Cannula 2 08/08/23 20:54 Results Complete Blood Count Results: RBC 3.67 M/uL (4.70-6.10) L 08/08/23 WBC 18.84 K/ul (4.8-10.8) H 08/08/23 Hgb 10.5 g/dl (14.0-18.0) L 08/08/23 Hct 32.6 % (42.0-52.0) L 08/08/23 Plt Count 358 K/uL (130-400) 08/08/23 PG Care Time/CCT Total # of Minutes Spent Total Time Spent with Patient: Total time spent is greater than 50% in coordination of care (as documented) at patient's floor/unit and/or counseling patient: Coding Level of Care Code 53559 Post Operative Follow-Up Diagnoses 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
--- NOTE | 2023-08-09 13:45 | Hospitalist Progress Note ---
Date of Service August 09, 2023 Assessment & Plan (1) Shock: Plan: Most likely septic shock post surgery Resolved Off of pressors Antibiotics: cefepime 2 gms q8h, caspofungin Gallbladder fluid growing Klebsiella and Clostridium perfringens (2) Status post laparotomy: Plan: Initially patient was thought to have acute cholecystitis. Went to the OR for laparoscopic cholecystectomy was converted to exploratory laparotomy, bowel resection. 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 Wound appears clean and healing well Wound VAC placed NG tube in place, continues to show decreased output PICC line in place TPN was started 08/03 as the patient for nutritional support Continue wound care (3) Hypernatremia: Plan: could be hypertonic hypernatremia The TPN needs to be adjusted, with lower sodium or can incorporate Dextrose water through IV Pharmacy managing TPN (4) Cholecystitis: Plan: Status post gallbladder removal Remains on antibiotics (5) Gastroesophageal reflux disease: Plan: Was on famotidine on admisison, now on IV Protonix (6) Endotracheally intubated: Plan: Extubated 07/31 On 3 L/m nasal canula Sa02 94-97% (7) History of intestinal obstruction: Plan: History of small bowel obstruction in the past (8) Enterocutaneous fistula: Plan: Pt remains NPO, on TPN, drainage is slowing, to continue NG tube for now as per surgery (9) Malnutrition: Plan: Continue TPN Plan VTE Prophylaxis: Was on heparin 3 times daily, when noted coffee ground from drain and heparin placed on hold (08/04), will order SCD Diet - NPO to continue as per surgery Admission and Anticipated Discharge Date Admission Date: July 29, 2023 Subjective Patient seen and examined, denies fevers or chills or rigors, denies abdominal pain. Review of Systems Review of Systems: All systems reviewed are negative, apart from the ones contained in the history. Physical Exam Physical Exam: The patient is awake, alert and oriented 3, well developed and well nourished, normocephalic and atraumatic, lying in bed and in no acute distress. HEENT--PERRL, EOMI, mucous membranes and oropharynx mildly dry Neck--supple. No JVD. No bruits. Thyroid normal, trachea midline, no adenopathy. Heart--normal S1 and S2. No murmurs, rubs or gallops. Lungs--clear bilaterally, no respiratory distress, no accessory muscle use. Abdomen--surgical scar, clean wound. Extremities--no cyanosis or clubbing. No edema. Dermatologic--normal skin turgor, normal color, no abnormal lymph nodes, no rash. Neurologic--cranial nerves II through XII grossly intact. Rheumatologic--normal range of motion. Psychiatric--normal affect. Results & Data Results & Data Vital Signs (Past 12 Hours) Vital Signs Temp Pulse Pulse Resp BP BP BP 08/09/23 12:25 100 H 08/09/23 12:12 106 H 121/64 08/09/23 12:09 97.9 F 106 H 20 121/64 08/09/23 09:45 89 08/09/23 09:29 92 H 127/71 08/09/23 08:00 08/09/23 07:48 98.2 F 94 H 18 127/71 08/09/23 05:39 87 08/09/23 05:24 98 H 125/80 08/09/23 03:32 98.1 F 98 H 18 125/80 Pulse Ox O2 Del Method O2 Flow Rate 08/09/23 12:25 08/09/23 12:12 08/09/23 12:09 99 Room Air, Nasal Cannula 2 08/09/23 09:45 08/09/23 09:29 08/09/23 08:00 Nasal Cannula 2 08/09/23 07:48 97 Nasal Cannula 3.0 08/09/23 05:39 08/09/23 05:24 08/09/23 03:32 98 Nasal Cannula 3 PG Care Time/CCT Total # of Minutes Spent Total Time Spent with Patient: Total time spent is greater than 50% in coordination of care (as documented) at patient's floor/unit and/or counseling patient: Coding Level of Care Code 86120 SUB INP/OBS CARE 2/35MIN Diagnoses Shock R57.9 Status post laparotomy Z98.890 Hypernatremia E87.0 Cholecystitis K81.9 Gastroesophageal reflux disease, unspecified whether esophagitis present K21.9 Esophagitis presence: esophagitis presence not specified Endotracheally intubated Z97.8 History of intestinal obstruction Z87.19 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 Malnutrition E46 Time Spent (min) 35 (5) Gastroesophageal reflux disease Esophagitis presence: esophagitis presence not specified Qualified Code(s): K21.9 - Gastro-esophageal reflux disease without esophagitis
[2023-08-09] MEDS: CENTRAL TPN IV SCH (15:24)
[2023-08-09] MEDS: [UNRECOGNIZED DRUG - OTHER] IV SCH (15:24)
[2023-08-09] MEDS: CLINOLIPID 20% IV FAT EMULSION 250 ML IV SCH (15:24)
[2023-08-09] MEDS: METOPROLOL TARTRATE 1 MG/ML VIAL IV STA (18:53)
[2023-08-09] MEDS: STOP CLINOLIPID ONE (21:37)
[2023-08-10] MEDS: METOPROLOL TARTRATE 1 MG/ML VIAL IV STA (03:13)
[2023-08-10 06:47] LABS: Basophils # (auto) 0.09 K/uL (0.00-0.20); Basophils % (auto) 0.4 %; Eosinophils # (auto) 0.42 K/uL (0.00-0.50); Eosinophils % (auto) 2.1 %; Hematocrit (blood only) 32.4 % (42.0-52.0); Hemoglobin 10.6 g/dl (14.0-18.0); Immature Granulocytes % (auto) 1.5 %; Lymphocytes % (auto) 10.4 %; Mean Corpuscular Hemoglobin 28.6 pg (25.0-34.0); Mean Corpuscular Hgb Conc 32.7 g/dL (32.0-36.0); Mean Corpuscular Volume 87.6 fL (80.0-100.0); Mean Platelet Volume 11.3 fL (9.4-12.4); Monocytes # (auto) 1.63 K/uL (0.11-0.59); Monocytes % (auto) 8.1 %; Neutrophils # (auto) 15.64 K/uL (1.40-6.50); Neutrophils % (auto) 77.5 %; Platelet Count 457 K/uL (130-400); RDW Coefficient of Variation 15.6 % (11.5-14.5); RDW Standard Deviation 49.5 fL (36.4-46.3); White Blood Count 20.18 K/ul (4.8-10.8)
[2023-08-10 07:12] LABS: BUN Creatinine Ratio 71.7 (10-20); Calcium 8.8 mg/dl (8.6-10.3); Creatinine Clr Calc Pharmacy 107.6 ml/min; Est GFR (African American) 106.3 ml/min; Est GFR (Non-African American) 91.7 ml/min; Magnesium 2.2 mg/dl (1.7-2.4); Phosphorus 3.1 mg/dl (2.5-4.9); Potassium 4.4 mmol/L (3.5-5.1)
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
--- NOTE | 2023-08-10 08:51 | Surgery Progress Note ---
Date of Service August 10, 2023 Assessment & Plan (1) Enterocutaneous fistula: Plan: pt reports no abd pain feeling hot , no documented fevers, ok for cool compresses NGT draining, will keep in place abd wound with some slough and eschar, removed at bedside Cesia wound nurse present , to replace new vac and put pressure at -125 Pt had some seepage of drainage surrounding outside dressing WBC remain elevated at 20 Continue NPO , (report from nurse over night pt was given ice chips and drank entire cup) as above. pt seen. denies pain. no fevers. vac sealed but not keeping up with all drainage. can increase pressure to -125. vac changed by wound nurse today. requested to add santyl under vac to assist with enzymatic debridement. at next vac will also plan to place some amnioband to assist with healing. ID consulted. I rec urine/blood cx's, cxr. can do CT scans but CT of belly will likely yield confusing picture. I wound expect dilated bowel and fluid and pt has a non-operative abdomen. cont ngt/tpn Admission and Anticipated Discharge Date Admission Date: July 29, 2023 Subjective pt reports no abd pain feeling hot , no documented fevers NGT draining Review of Systems Constitutional: no chills feels hot Respiratory: no dyspnea Cardiovascular: no chest pain Gastrointestinal: no abdominal pain, no nausea and no vomiting Integumentary: + wounds abd Physical Exam Physical Exam: alert oriented Constitutional: cooperative and comfortable; no acute distress Respiratory: normal respiratory effort and able to speak in complete sentences; no respiratory distress Gastrointestinal (Abdomen): Inspection/Auscultation: + abdomen distended and + abdominal surgical incision (see wound pictures ) Percussion/Palpation: + abdomen tender and abdomen soft Results & Data Vital Signs (Past 12 Hours) Vital Signs Temp Pulse Pulse Resp BP BP Pulse Ox 08/10/23 07:41 98.4 F 96 H 21 129/75 97 08/10/23 07:26 86 08/10/23 07:26 08/10/23 03:29 111 H 113/77 08/10/23 03:13 61 102/71 08/10/23 02:57 98.1 F 125 H 18 136/84 98 08/10/23 00:49 86 08/09/23 23:31 98.2 F 99 H 18 129/82 98 08/09/23 22:56 95 H O2 Del Method O2 Flow Rate 08/10/23 07:41 Nasal Cannula 3 08/10/23 07:26 08/10/23 07:26 Nasal Cannula 2 08/10/23 03:29 08/10/23 03:13 08/10/23 02:57 Nasal Cannula 3 08/10/23 00:49 08/09/23 23:31 Nasal Cannula 3 08/09/23 22:56 Results Complete Blood Count Results: RBC 3.70 M/uL (4.70-6.10) L 08/10/23 WBC 20.18 K/ul (4.8-10.8) H 08/10/23 Hgb 10.6 g/dl (14.0-18.0) L 08/10/23 Hct 32.4 % (42.0-52.0) L 08/10/23 Plt Count 457 K/uL (130-400) H 08/10/23 PG Care Time/CCT Total # of Minutes Spent Total Time Spent with Patient: Total time spent is greater than 50% in coordination of care (as documented) at patient's floor/unit and/or counseling patient: Coding Level of Care Code 77560 Post Operative Follow-Up Diagnoses 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
--- NOTE | 2023-08-10 10:27 | Pharmacy Report ---
Pharmacy PN Follow-up Note - Date of Service August 10, 2023 - Subjective Patient is currently on day #7 of TPN for Enterocutaneous fistula, abdominal surgery, NPO. - Objective Height & Weight (Last Documented) Height 5 ft 9 in Weight 105.2 kg Diet Order(s) 07/30/23 00:01 NPO Intake & Ouput (24hrs) 08/09/23 08/10/23 08/11/23 06:59 06:59 06:59 Intake Total 2190.87 / 2190.87 1989 Output Total 2245 / 2245 2480 / 2480 Balance -54.13 / -54.13 -490 / -490 Selected Laboratory Results 08/10/23 05:56 Sodium 145 Potassium 4.4 Chloride 112 H Carbon Dioxide 29 Anion Gap 4 BUN 43 H Creatinine 0.60 Est GFR ( Amer) 106.3 Est GFR (Non-Af Amer) 91.7 BUN/Creatinine Ratio 71.7 H Glucose 155 H Calcium 8.8 Phosphorus 3.1 Magnesium 2.2 Triglycerides 105 - Assessment & Plan Assessment: * Patient remains NPO, increase macronutrients to assist in wound healing, per dietary recs. * Reviewed increase in fluids (1834ml from 1474ml/day) with Dr Nick ARGUELLO to do, pt on lasix BID. * Triglycerides 105mg/dl, continue daily lipids at this time. * Continue electrolytes and monitor. * Renal function stable. * Patient completes 10 days of caspofungin today, started Unasyn today per ID. Plan: * For Day #7 of TPN administration, the following will be ordered: * Macronutrients: * Amino Acids: 144 grams/day * Dextrose: 252 grams/day * Lipids: 50 grams/day * Micronutrients: * Potassium phosphate: 60 mMol/day * Magnesium sulfate: 12.18 mEq/day * Multivitamins: 10 mL/day * Trace elements: 1 mL/day * Thiamine: 100 mg/day * Folic Acid: 1 mg/day * Total volume of 1834 ml will be infused over 24 hours and will provide 1933 kcal/day * Labs will be ordered per PN protocol. * Pharmacy will follow and adjust PN orders on a daily basis. Thank you!
[2023-08-10] MEDS ORDERED: AMPICILLIN SOD/SULBACTAM SOD 3 GM VIAL IV SCH (10:30)
--- NOTE | 2023-08-10 10:42 | XRay Report ---
XR chest 1V portable HISTORY: 83 years-old Male WBC acute sepsis COMPARISON: Chest radiograph 08/02/2023 TECHNIQUE: AP view of the chest FINDINGS: Cardiac silhouette is enlarged. A right-sided PICC is noted with distal tip in expected location of t he upper SVC. Enteric tube courses below the diaphragm outside the [id number]. No pneumothorax. Sm all pleural effusions with unchanged right hemidiaphragm elevation. Mild persistent bibasilar opaciti es have improved. There is decreased pulmonary vascular congestion. Left lung surgical suture materia l. Bones appear grossly intact. IMPRESSION: 1. Cardiomegaly with decreased pulmonary vascular congestion. 2. Small pleural effusions with improved aeration of the lung bases. 3. Right-sided PICC and enteric tube positioning as above. ACT 112: Negative or not required by law. The above report was generated using voice recognition software. It may contain grammatical, syntax o r spelling errors. Electronically signed by: Daniel Payne M.D. 08/10/2023 10:40 AM
[2023-08-10] MEDS: AMPICILLIN/SULBACTAM SOD 3,000 MG in SODIUM CHLOR 0.9% MINI-B 100 ML IV SCH (11:06)
[2023-08-10] MEDS: OPTIRAY 320 100ml IV ONE (12:43)
--- NOTE | 2023-08-10 13:30 | Hospitalist Progress Note ---
Date of Service August 10, 2023 Assessment & Plan (1) Shock: Plan: Most likely septic shock post surgery Now Resolved Off pressors Was on cefepime 2 gms q8h, caspofungin, Flagyl WBC has been trending up Although patient has been afebrile Will change antibiotics to IV Unasyn per infectious diseases (2) Status post laparotomy: Plan: Initially patient was thought to have acute cholecystitis. Went to the OR for laparoscopic cholecystectomy was converted to exploratory laparotomy, bowel resection. 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 Wound appears clean and healing well Wound VAC placed and replaced today(08/09) NG tube in place, continues to show decreased output PICC line in place TPN was started 08/03 as the patient for nutritional support Continue wound care (3) Cholecystitis: Plan: Status post gallbladder removal Gallbladder fluid growing Klebsiella and Clostridium perfringens WBC has been trending up Although patient has been afebrile Will change antibiotics to IV Unasyn per infectious diseases Repeat Ct abd/pelvis (4) Hypernatremia: Plan: Resolved (5) Gastroesophageal reflux disease: Plan: Was on famotidine on admisison, now on IV Protonix (6) Endotracheally intubated: Plan: Extubated 07/31 On 3 L/m nasal canula Sa02 94-97% (7) History of intestinal obstruction: Plan: History of small bowel obstruction in the past (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 Review of Systems Review of Systems: All systems reviewed are negative, apart from the ones contained in the history. Physical Exam Physical Exam: The patient is awake, alert and oriented 3, well developed and well nourished, normocephalic and atraumatic, lying in bed and in no acute distress. HEENT--PERRL, EOMI, mucous membranes and oropharynx mildly dry Neck--supple. No JVD. No bruits. Thyroid normal, trachea midline, no adenopathy. Heart--normal S1 and S2. No murmurs, rubs or gallops. Lungs--clear bilaterally, no respiratory distress, no accessory muscle use. Abdomen--surgical scar, clean wound. Extremities--no cyanosis or clubbing. No edema. Dermatologic--normal skin turgor, normal color, no abnormal lymph nodes, no rash. Neurologic--cranial nerves II through XII grossly intact. Rheumatologic--normal range of motion. Psychiatric--normal affect. Results & Data Results & Data Vital Signs (Past 12 Hours) Vital Signs Temp Pulse Pulse Resp BP BP Pulse Ox 08/10/23 11:21 89 124/77 08/10/23 11:16 97.9 F 98 H 21 115/76 96 08/10/23 11:06 90 115/76 08/10/23 09:37 97.7 F 87 21 133/78 95 08/10/23 09:12 90 133/78 08/10/23 08:57 97 H 129/75 08/10/23 07:41 98.4 F 96 H 21 129/75 97 08/10/23 07:26 86 08/10/23 07:26 08/10/23 03:29 111 H 113/77 08/10/23 03:13 61 102/71 08/10/23 02:57 98.1 F 125 H 18 136/84 98 O2 Del Method O2 Flow Rate 08/10/23 11:21 08/10/23 11:16 Nasal Cannula 3 08/10/23 11:06 08/10/23 09:37 Nasal Cannula 3 08/10/23 09:12 08/10/23 08:57 08/10/23 07:41 Nasal Cannula 3 08/10/23 07:26 08/10/23 07:26 Nasal Cannula 2 08/10/23 03:29 08/10/23 03:13 08/10/23 02:57 Nasal Cannula 3 PG Care Time/CCT Total # of Minutes Spent Total Time Spent with Patient: Total time spent is greater than 50% in coordination of care (as documented) at patient's floor/unit and/or counseling patient: Coding Level of Care Code 07979 SUB INP/OBS CARE 2/35MIN Diagnoses Shock R57.9 Status post laparotomy Z98.890 Cholecystitis K81.9 Hypernatremia E87.0 Gastroesophageal reflux disease, unspecified whether esophagitis present K21.9 Esophagitis presence: esophagitis presence not specified Endotracheally intubated Z97.8 History of intestinal obstruction Z87.19 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 Malnutrition E46 Time Spent (min) 35 (5) Gastroesophageal reflux disease Esophagitis presence: esophagitis presence not specified Qualified Code(s): K21.9 - Gastro-esophageal reflux disease without esophagitis
--- NOTE | 2023-08-10 13:40 | CT Scan Report ---
ABDOMEN AND PELVIS CT WITH IV CONTRAST CT DOSE: 1599.54 mGy.cm HISTORY: Acute generalized abdominal pain with recent cholecystectomy abd infection TECHNIQUE: Multiaxial CT images of the abdomen and pelvis were performed following the IV administrat ion of 94 cc of Optiray, A dose lowering technique was utilized adhering to the principles of ALARA. COMPARISON STUDY: 08/01/2023 FINDINGS: Heart is normal in size. Mild coronary artery calcifications. Mild dependent bibasilar cons olidation favors atelectasis. Unchanged appearance of the spleen. Mildly atrophic pancreas. There are a few scattered cystic foci of the pancreas measuring up to 12 mm are nonspecific however favor side branch IPMN's. The adrenal glands are within normal limits. The contrast-enhanced liver is normal in size, contour, and attenuation. There is no intrahepatic biliary ductal dilatation. The hepatic veins and portal veins are patent. Lobulated calcification-containing hepatic lesions are unchanged. The l argest measures up to 5.5 cm. The contrast enhanced kidneys demonstrate mild cortical atrophy and are without hydronephrosis. The k idneys enhance symmetrically. Bilateral cysts measure up to 3.3 cm. Additional subcentimeter cortical hypodensities also likely represent cysts but are too small for definitive characterization. A 3 mm nonobstructing calculus is seen on the left. A punctate nonobstructing calculus is seen on the right. Decompressed urinary bladder with Steiner catheter in place. Urinary bladder wall thickening with intr aluminal air. Atherosclerosis of the aorta without aneurysm. Patent portal vein. Postoperative changes of recent cholecystectomy. Trace fluid within the ruthie hepatis has decreased f rom the 08/01/2023 study. An enteric tube distal tip terminates in the gastric body. A right lateral ap proach surgical drainage catheter is noted with distal tip interposed between the right hemidiaphragm and left hepatic lobe. Moderate fecal retention in the rectum. Colonic diverticulosis without acute diverticulitis. No CT evidence of acute appendicitis. Peripherally enhancing 7.8 x 4.7 x 6.9 cm fluid collection within the abdominal lower quadrant on image 321 series 3. This is contiguous with an add itional small fluid collection within the abdominal right lower quadrant on image 261. There is a sep arate smaller loculated fluid collection in the left lower colic gutter, 3.9 cm. Small bowel anastomo tic suture with mild intraloop edema/smaller fluid collections. Actual no air noted within the anteri or abdominal wall tissues deep to the umbilicus. Left hip arthroplasty. Severe right hip osteoarthritis. IMPRESSION: 1. Postoperative changes of recent cholecystectomy. 2. Peripherally enhancing loculated fluid collections within the lower abdomen and pelvis suggestive of abscesses measure up to approximately 7 cm. 3. Distal tip of surgical drainage catheter interposed between the right hemidiaphragm and liver. 4. No bowel obstruction. 5. Additional findings as above. ACT 112: Negative or not required by law. The above report was generated using voice recognition software. It may contain grammatical, syntax o r spelling errors. Electronically signed by: Daniel Payne M.D. 08/10/2023 1:38 PM
[2023-08-10] MEDS: [UNRECOGNIZED DRUG - OTHER] IV SCH (16:05)
[2023-08-10] MEDS: CENTRAL TPN IV SCH (16:05)
[2023-08-10] MEDS: CLINOLIPID 20% IV FAT EMULSION 250 ML IV SCH (16:06)
[2023-08-10 17:40] LABS: Appearance Urine Clear (Clear); Bilirubin Urine Negative (Negative); Blood Urine Negative (Negative); Color Urine Yellow; Glucose Urine UA Negative (Negative); Ketones Urine Negative (Negative); Leukocyte Esterase Urine Negative (Negative); Nitrite Urine Negative (Negative); Protein Urine Negative (Negative); Specific Gravity Urine 1.018 (1.000-1.030); Urobilinogen Urine Negative (Negative); pH Urine 5.5 (4.5-7.5)
[2023-08-10] MEDS: STOP CLINOLIPID SCH (22:06)
[2023-08-11 06:46] LABS: BUN Creatinine Ratio 61.9 (10-20); Calcium 8.8 mg/dl (8.6-10.3); Creatinine Clr Calc Pharmacy 101.1 ml/min; Est GFR (African American) 104.1 ml/min; Est GFR (Non-African American) 89.9 ml/min; Magnesium 2.1 mg/dl (1.7-2.4); Phosphorus 2.9 mg/dl (2.5-4.9); Potassium 4.5 mmol/L (3.5-5.1)
[2023-08-11 07:58] LABS: INR 1.2 (0.9-1.1); Prothrombin Time 12.6 Seconds (9.0-12.0)
[2023-08-11 08:12] LABS: Hematocrit (blood only) 34.4 % (42.0-52.0); Hemoglobin 10.8 g/dl (14.0-18.0); Mean Corpuscular Hemoglobin 28.2 pg (25.0-34.0); Mean Corpuscular Hgb Conc 31.4 g/dL (32.0-36.0); Mean Corpuscular Volume 89.8 fL (80.0-100.0); Mean Platelet Volume 12.1 fL (9.4-12.4); Platelet Count 507 K/uL (130-400); RDW Coefficient of Variation 15.7 % (11.5-14.5); RDW Standard Deviation 50.5 fL (36.4-46.3); Red Blood Count 3.83 M/uL (4.70-6.10); White Blood Count 18.73 K/ul (4.8-10.8)
--- NOTE | 2023-08-11 08:15 | Surgery Progress Note ---
Date of Service August 11, 2023 Assessment & Plan (1) Enterocutaneous fistula: Plan: pt s/p lap liv and repair of enterotomies with small bowel resection Pt denies any abdominal complaints, no pain/n/v. + small amount of flatus WBC 18(20). Vitals are stable + ECF being managed currently with wound vac. CRICKET drain in place with scant output CT scan obtained yesterday given WBC rise and revealed some abdominal fluid collections, will ask IR if they can attempt drainage of the larger RLQ one today ID on board and he is currently on IV unasyn Continue NPO with NGT and TPN via picc line as above. IR unable to get window for drainage ( I'm not surprised by this )...antibiotics per ID. pt afebrile. stable. cont NGT/TPN. perhaps next week I will obtain speech/swallowing eval and allow pt to try clears pending the vac output PT/OT Admission and Anticipated Discharge Date Admission Date: July 29, 2023 Subjective Patient feeling well. He denies any abdominal pain or nausea. Says he is passing a small amount of gas. Physical Exam Physical Exam: awake/alert, no distress, resting Respiratory: normal respiratory effort on 1L nasal cannula Gastrointestinal (Abdomen): Inspection/Auscultation: + abdominal surgical incision (wound vac holding suction. some erythema noted to iron-umbilical skin) and + abdominal surgical drain present (CRICKET with scant output, serosang) Percussion/Palpation: abdomen soft; abdomen nontender Results & Data Vital Signs (Past 12 Hours) Vital Signs Temp Pulse Pulse Resp BP BP BP 08/11/23 07:32 97.9 F 89 18 127/79 08/11/23 04:51 08/11/23 04:16 89 111/76 08/11/23 04:10 08/11/23 04:05 97.5 F L 89 18 111/76 08/11/23 03:52 148 H 101/71 08/11/23 02:26 98.2 F 129 H 18 128/81 08/11/23 00:00 90 08/10/23 23:45 90 121/75 08/10/23 22:45 97.9 F 90 18 121/75 08/10/23 22:10 91 H 08/10/23 20:44 08/10/23 20:27 88 121/63 Pulse Ox O2 Del Method O2 Flow Rate 08/11/23 07:32 95 Nasal Cannula 1 08/11/23 04:51 94 Nasal Cannula 1 08/11/23 04:16 08/11/23 04:10 Room Air 08/11/23 04:05 99 Nasal Cannula 3 08/11/23 03:52 08/11/23 02:26 97 Nasal Cannula 3.0 08/11/23 00:00 08/10/23 23:45 08/10/23 22:45 98 Nasal Cannula 3.0 08/10/23 22:10 08/10/23 20:44 Nasal Cannula 2 08/10/23 20:27 PG Care Time/CCT Total # of Minutes Spent Total Time Spent with Patient: Total time spent is greater than 50% in coordination of care (as documented) at patient's floor/unit and/or counseling patient: Coding Level of Care Code 82800 Post Operative Follow-Up Diagnoses 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
[2023-08-11] MEDS: fentaNYL citrate PF 100 MCG/2 ML VIAL ONE (09:01)
--- NOTE | 2023-08-11 09:17 | CT Scan Report ---
CT limited or localized study CT DOSE: 1106.65 mGy.cm CLINICAL HISTORY: CT guided drainage of abdominal fluid collection TECHNIQUE: Multiaxial CT images of the abdomen and pelvis were performed for preprocedural planning. A dose lowering technique was utilized adhering to the principles of ALARA. COMPARISON STUDY: Abdomen and pelvis CT 08/10/2023. FINDINGS: There is again noted a 7 cm loculated fluid collection within the right lower quadrant susp icious for an abscess. However, preliminary imaging did not demonstrate an adequate window for percut aneous drainage. Therefore, the procedure was not performed. There is a Steiner catheter within the tomasa dder. Tip of the nasogastric tube is visualized in the distal stomach. There is a percutaneous surgic al drain within the right upper quadrant which is partially visualized on this study. Prior cholecyst ectomy. Left-sided nephrolithiasis. Additional postoperative changes within the abdomen better apprec iated on the recent abdomen and pelvis CT. IMPRESSION: There is again noted a 7 cm loculated fluid collection within the right lower quadrant s uspicious for an abscess. However, preliminary imaging did not demonstrate an adequate window for per cutaneous drainage. Therefore, the procedure was not performed. ACT 112: Negative or not required by law. Electronically signed by: Emir Velazquez M.D. 08/11/2023 9:16 AM
--- NOTE | 2023-08-11 09:25 | Infectious Disease Progress Nt ---
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 CXR no pneumonia. CT A/P and RUQ u/s showed acute cholecystitis, OR 07/29 for acute cholecystitis which was converted to exploratory laparotomy, where he underwent cholecystectomy as well as small bowel resection, entero-enterostomy, repair of enterotomies and extensive enterolysis. OR reports gangrenous gallbladder. OR gallbladder fluid Cultures grew reveles sensitive kleb pneumo and c. perfringens, path showed severe acute necrotizing cholecystitis, small intestine path acute serositis with acute enteritis. He was treated with cefepime, flagyl, caspofungin 07/31 CT showed dependent airspace consolidation, free air in abdomen likely seco ndary to postoperative, mild edema in gallbladder fossa. Surgical drain in in RUQ not in gb flssa On consultation 08/09 he is 3L NC, WBC 20.18 (no significant change), chem normal, Given elevated WBC CT recommended which showed: 7 cm loculated fluid collection within the right lower quadrant suspicious for an abscess contiguous with an additional small fluid collection within the abdominal right lower quadrant - There is a separate smaller loculated fluid collection in the left lower colic gutter, 3.9 cm. Seen by IR this am - and per notation preliminary imaging did not demonstrate an adequate window for percutaneous drainage. Therefore, the procedure was not performed. RECOMMEND: -Check blood cultures, sputum cultures, follow results -CWUnasyn 3G IV q6 hours -Await surgery follow up based on IR findings - -If no intervention, anticipate he will need at least 4-6 weeks of abx therapy ID will follow Jess Thurston MD Infectious Diseases Admission and Anticipated Discharge Date Admission Date: July 29, 2023 Subjective This patient recommendation is based on a telemedicine consult request which was completed asynchronously through chart review and information provided by the primary physician. The patient was not seen or examined today. The evaluation is consultative in nature and all patient care and treatment decisions can either be accepted or rejected by the patient's primary hospital-based treating physician using their own independent medical judgment for their patient. Time Spent Reviewing Chart: 31+ minutes Results & Data Vital Signs (Past 12 Hours) Vital Signs Temp Pulse Pulse Resp BP BP BP 08/11/23 07:32 36.6 C 89 18 127/79 08/11/23 04:51 08/11/23 04:16 89 111/76 08/11/23 04:10 08/11/23 04:05 36.4 C L 89 18 111/76 08/11/23 03:52 148 H 101/71 08/11/23 02:26 36.8 C 129 H 18 128/81 08/11/23 00:00 90 08/10/23 23:45 90 121/75 08/10/23 22:45 36.6 C 90 18 121/75 08/10/23 22:10 91 H Pulse Ox O2 Del Method O2 Flow Rate 08/11/23 07:32 95 Nasal Cannula 1 08/11/23 04:51 94 Nasal Cannula 1 08/11/23 04:16 08/11/23 04:10 Room Air 08/11/23 04:05 99 Nasal Cannula 3 08/11/23 03:52 08/11/23 02:26 97 Nasal Cannula 3.0 08/11/23 00:00 08/10/23 23:45 08/10/23 22:45 98 Nasal Cannula 3.0 08/10/23 22:10 Laboratory Results Short CBC 08/11/23 Range/Units 05:48 WBC 18.73 H (4.8-10.8) K/ul Hgb 10.8 L (14.0-18.0) g/dl Hct 34.4 L (42.0-52.0) % Plt Count 507 H (130-400) K/uL BMP 08/11/23 05:47 Sodium 144 Potassium 4.5 Chloride 111 H Carbon Dioxide 29 BUN 39 H Creatinine 0.63 Glucose 156 H Calcium 8.8 Urine 08/10/23 Range/Units 16:51 Urine Color Yellow Urine Appearance Clear (Clear) Urine pH 5.5 (4.5-7.5) Ur Specific [place] 1.018 (1.000-1.030) Urine Protein Negative (Negative) Urine Glucose (UA) Negative (Negative) Microbiology 07/30/23 12:39 Gallbladder Fluid Gram Stain - Final 07/30/23 12:39 Gallbladder Fluid Aerobic and Anaerobic Culture - Final Klebsiella pneumoniae Clostridium perfringens Diagnostic Findings Limited or Localized CT 08/11/23 07:00 CT limited or localized study CT DOSE: 1106.65 mGy.cm CLINICAL HISTORY: CT guided drainage of abdominal fluid collection TECHNIQUE: Multiaxial CT images of the abdomen and pelvis were performed for preprocedural planning. A dose lowering technique was utilized adhering to the principles of ALARA. COMPARISON STUDY: Abdomen and pelvis CT 08/10/2023. FINDINGS: There is again noted a 7 cm loculated fluid collection within the right lower quadrant suspicious for an abscess. However, preliminary imaging did not demonstrate an adequate window for percutaneous drainage. Therefore, the procedure was not performed. There is a Steiner catheter within the bladder. Tip of the nasogastric tube is visualized in the distal stomach. There is a percutaneous surgical drain within the right upper quadrant which is partially visualized on this study. Prior cholecystectomy. Left-sided nephrolithiasis. Additional postoperative changes within the abdomen better appreciated on the recent abdomen and pelvis CT. IMPRESSION: There is again noted a 7 cm loculated fluid collection within the right lower quadrant suspicious for an abscess. However, preliminary imaging did not demonstrate an adequate window for percutaneous drainage. Therefore, the procedure was not performed. ACT 112: Negative or not required by law. Electronically signed by: Emir Velazquez M.D. 08/11/2023 9:16 AM Medications Administered Current Inpatient Medications Artificial Tears (Artificial Tears) 1 drops OP BID NASIR Stop: 08/29/23 08:59 Last Admin: 08/10/23 20:28 Dose: 1 drops Collagenase (Collagenase Oint 30 Gm Tube) 1 appln EXT PRN PRN PRN Reason: wound vac Stop: 09/11/23 07:59 Furosemide (Furosemide Inj 20 Mg/2 Ml Vial) 20 mg IV BID17 NASIR Stop: 09/02/23 08:59 Last Admin: 08/10/23 16:10 Dose: 20 mg Heparin Sodium (Porcine) (Heparin Sod 5,000 Unit/0.5 Ml Vial) 5,000 units SQ Q8 NASIR Stop: 09/01/23 13:59 Last Admin: 08/05/23 06:26 Dose: 5,000 units Dextrose (D10w) 1,000 mls @ 0 mls/hr IV .Q0M PRN PRN Reason: protocol (see label comments) Stop: 09/03/23 15:59 Pantoprazole Sodium 40 mg/ (Syringe) 10 mls @ 5 mls/min IV DAILY@1100 COUNTS INCLUDE 234 BEDS AT THE [facility] Stop: 09/04/23 10:59 Last Admin: 08/10/23 11:06 Dose: 5 mls/min Amino Acids/Dextrose 1,834 ml/ (Nutrition (Parenteral)) 1,834 mls @ 76.4 mls/hr IV .Q24H COUNTS INCLUDE 234 BEDS AT THE [facility]; Protocol Stop: 08/11/23 15:59 Last Admin: 08/10/23 16:05 Dose: 76.4 mls/hr Ampicillin Sodium/Sulbactam Sodium 3,000 mg/ Sodium Chloride 100 mls @ 200 mls/hr IV Q6H COUNTS INCLUDE 234 BEDS AT THE [facility] Stop: 08/20/23 10:59 Last Infusion: 08/11/23 04:27 Dose: Infused Metoprolol Tartrate (Metoprolol Tartrate 1 Mg/Ml Vial) 5 mg IV Q4 COUNTS INCLUDE 234 BEDS AT THE [facility] Stop: 08/31/23 19:59 Last Admin: 08/11/23 03:52 Dose: 5 mg Miscellaneous (Stop Clinolipid) 1 each N/A TODAY@22 COUNTS INCLUDE 234 BEDS AT THE [facility] Stop: 09/09/23 21:59 Last Admin: 08/10/23 22:06 Dose: 1 each Miscellaneous Information (Tpn/Ppn Consult Pharmacy) 1 each N/A UD PRN PRN Reason: Consult Stop: 09/04/23 07:57 Morphine Sulfate (Morphine Sulfate 2 Mg/Ml [place]) 1 mg IV Q3H PRN PRN Reason: Pain Stop: 08/15/23 19:45 Last Admin: 08/11/23 04:15 Dose: 1 mg Ondansetron HCl (Ondansetron Inj 2 Mg/Ml 2 Ml Vial) 4 mg IV Q4H PRN PRN Reason: Nausea Stop: 08/28/23 21:36 Last Admin: 08/02/23 21:29 Dose: 4 mg
--- NOTE | 2023-08-11 11:17 | Hospitalist Progress Note ---
Date of Service August 11, 2023 Assessment & Plan (1) Shock: Plan: Most likely septic shock post surgery Now Resolved Off pressors Was on cefepime 2 gms q8h, caspofungin, Flagyl WBC has been trending up Although patient has been afebrile Will change antibiotics to IV Unasyn per infectious diseases (2) Status post laparotomy: Plan: Initially patient was thought to have acute cholecystitis. Went to the OR for laparoscopic cholecystectomy was converted to exploratory laparotomy, bowel resection. 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 Wound appears clean and healing well Wound VAC placed and replaced today(08/09) NG tube in place, continues to show decreased output PICC line in place TPN was started 08/03 as the patient for nutritional support Continue wound care (3) Cholecystitis: Plan: Status post gallbladder removal Gallbladder fluid growing Klebsiella and Clostridium perfringens WBC has been trending up Although patient has been afebrile Will change antibiotics to IV Unasyn per infectious diseases Repeat Ct abd/pelvis (4) Intra-abdominal abscess: Plan: Repeat CT abdomen and pelvis showed a 7 cm loculated fluid collection in the right lower quadrant suspicious for an abscess. However per general surgery there was no adequate window for percutaneous drainage. Continue IV antibiotics. 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 Review of Systems Review of Systems: All systems reviewed are negative, apart from the ones contained in the history. Physical Exam Physical Exam: The patient is awake, alert and oriented 3, well developed and well nourished, normocephalic and atraumatic, lying in bed and in no acute distress. HEENT--PERRL, EOMI, mucous membranes and oropharynx mildly dry Neck--supple. No JVD. No bruits. Thyroid normal, trachea midline, no adenopathy. Heart--normal S1 and S2. No murmurs, rubs or gallops. Lungs--clear bilaterally, no respiratory distress, no accessory muscle use. Abdomen--surgical scar, clean wound. Extremities--no cyanosis or clubbing. No edema. Dermatologic--normal skin turgor, normal color, no abnormal lymph nodes, no rash. Neurologic--cranial nerves II through XII grossly intact. Rheumatologic--normal range of motion. Psychiatric--normal affect. Results & Data Results & Data Vital Signs (Past 12 Hours) Vital Signs Temp Pulse Pulse Resp BP BP BP 08/11/23 10:36 97.5 F L 97 H 16 147/78 H 08/11/23 07:32 97.9 F 89 18 127/79 08/11/23 04:51 08/11/23 04:16 89 111/76 08/11/23 04:10 08/11/23 04:05 97.5 F L 89 18 111/76 08/11/23 03:52 148 H 101/71 08/11/23 02:26 98.2 F 129 H 18 128/81 08/11/23 00:00 90 08/10/23 23:45 90 121/75 Pulse Ox O2 Del Method O2 Flow Rate 08/11/23 10:36 94 08/11/23 07:32 95 Nasal Cannula 1 08/11/23 04:51 94 Nasal Cannula 1 08/11/23 04:16 08/11/23 04:10 Room Air 08/11/23 04:05 99 Nasal Cannula 3 08/11/23 03:52 08/11/23 02:26 97 Nasal Cannula 3.0 08/11/23 00:00 08/10/23 23:45 PG Care Time/CCT Total # of Minutes Spent Total Time Spent with Patient: Total time spent is greater than 50% in coordination of care (as documented) at patient's floor/unit and/or counseling patient: Coding Level of Care Code 48322 SUB INP/OBS CARE 2/35MIN Diagnoses Shock R57.9 Status post laparotomy Z98.890 Cholecystitis K81.9 Intra-abdominal abscess K65.1 Hypernatremia E87.0 Gastroesophageal reflux disease, unspecified whether esophagitis present K21.9 Esophagitis presence: esophagitis presence not specified Endotracheally intubated Z97.8 History of intestinal obstruction Z87.19 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 Malnutrition E46 Time Spent (min) 35 (6) Gastroesophageal reflux disease Esophagitis presence: esophagitis presence not specified Qualified Code(s): K21.9 - Gastro-esophageal reflux disease without esophagitis
[2023-08-11] MEDS: [UNRECOGNIZED DRUG - OTHER] IV SCH (16:16)
[2023-08-11] MEDS: CENTRAL TPN IV SCH (16:16)
[2023-08-11] MEDS: CLINOLIPID 20% IV FAT EMULSION 250 ML IV SCH (16:16)
[2023-08-11] MEDS ORDERED: STOP CLINOLIPID ONE (22:00)
[2023-08-12] MEDS ORDERED: COLLAGENASE OINT 30 GM TUBE EXT PRN (08:00)
[2023-08-12 08:06] LABS: Hematocrit (blood only) 33.8 % (42.0-52.0); Hemoglobin 10.8 g/dl (14.0-18.0); Mean Corpuscular Hemoglobin 28.7 pg (25.0-34.0); Mean Corpuscular Volume 89.9 fL (80.0-100.0); Mean Platelet Volume 11.3 fL (9.4-12.4); Platelet Count 572 K/uL (130-400); RDW Coefficient of Variation 15.7 % (11.5-14.5); RDW Standard Deviation 50.4 fL (36.4-46.3); Red Blood Count 3.76 M/uL (4.70-6.10); White Blood Count 17.41 K/ul (4.8-10.8)
[2023-08-12 08:12] LABS: BUN Creatinine Ratio 61.9 (10-20); Creatinine Clr Calc Pharmacy 101.5 ml/min; Est GFR (African American) 104.1 ml/min; Est GFR (Non-African American) 89.9 ml/min; Magnesium 2.1 mg/dl (1.7-2.4); Phosphorus 3.3 mg/dl (2.5-4.9); Potassium 4.1 mmol/L (3.5-5.1)
--- NOTE | 2023-08-12 08:54 | Surgery Progress Note ---
Date of Service August 12, 2023 Assessment & Plan (1) Enterocutaneous fistula: Plan: overall doing well from my standpoint. amnioband placed during todays vac change. will place another piece next week can d/c CRICKET drain will consider d/c ngt and obtain speech/swallowing eval next week. keep ngt/tpn over weekend [facility] covering for weekend. Admission and Anticipated Discharge Date Admission Date: July 29, 2023 Subjective pt seen. resting comfortably in bed. denies pain. Physical Exam Physical Exam: alert. nad abd: vac in place. CRICKET with scant serous output Results & Data Vital Signs (Past 12 Hours) Vital Signs Temp Pulse Pulse Resp BP BP Pulse Ox 08/12/23 08:16 91 H 145/75 H 08/12/23 07:15 37.1 C 91 H 18 145/75 H 99 08/12/23 05:35 81 08/12/23 04:52 94 H 121/67 08/12/23 02:51 36.4 C L 93 H 16 135/74 98 08/12/23 00:36 78 151/77 H 08/12/23 00:24 92 H 131/67 08/11/23 22:48 88 08/11/23 22:32 36.3 C L 90 18 135/68 96 08/11/23 22:03 89 08/11/23 21:00 O2 Del Method O2 Flow Rate 08/12/23 08:16 08/12/23 07:15 Nasal Cannula 1.0 08/12/23 05:35 08/12/23 04:52 08/12/23 02:51 Nasal Cannula 3 08/12/23 00:36 08/12/23 00:24 08/11/23 22:48 08/11/23 22:32 Nasal Cannula 3 08/11/23 22:03 08/11/23 21:00 Room Air PG Care Time/CCT Total # of Minutes Spent Total Time Spent with Patient: Total time spent is greater than 50% in coordination of care (as documented) at patient's floor/unit and/or counseling patient: Coding Level of Care Code 21361 Post Operative Follow-Up Diagnoses 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
--- NOTE | 2023-08-12 11:44 | Hospitalist Progress Note ---
Date of Service August 12, 2023 Assessment & Plan (1) Shock: Plan: resolved (2) Intra-abdominal abscess: Plan: Repeat CT abdomen and pelvis showed a 7 cm loculated fluid collection in the right lower quadrant suspicious for an abscess. However per general surgery there was no adequate window for percutaneous drainage. Continue IV antibiotics. currently on Unasyn Per infectious diseases, will need antibiotics for 4 to 6 weeks (3) Enterocutaneous fistula: Plan: Enterocutaneous fistula: Per general surgery, CRICKET drain will be discontinued Wound VAC was changed today For speech and swallow eval next week, in the meantime keep the NG tube and TPN going Appreciate surgery commendations. (4) Status post laparotomy: Plan: Initially patient was thought to have acute cholecystitis. Went to the OR for laparoscopic cholecystectomy was converted to exploratory laparotomy, bowel resection. 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 Wound appears clean and healing well Wound VAC replaced today(08/11) NG tube in place PICC line in place TPN was started 08/03 as the patient for nutritional support Continue wound care (5) Cholecystitis: Plan: Status post gallbladder removal Gallbladder fluid grew Klebsiella and Clostridium perfringens Currently on IV Unasyn (6) Hypernatremia: Plan: Resolved (7) Gastroesophageal reflux disease: Plan: Was on famotidine on admisison, now on IV Protonix (8) Endotracheally intubated: Plan: Extubated 07/31 On 3 L/m nasal canula Sa02 94-97% (9) History of intestinal obstruction: Plan: History of small bowel obstruction in the past (10) Malnutrition: Plan: Continue TPN Plan VTE Prophylaxis: Was on heparin 3 times daily, when noted coffee ground from drain and heparin placed on hold (08/04), will order SCD Diet - NPO to continue as per surgery Admission and Anticipated Discharge Date Admission Date: July 29, 2023 Subjective Patient seen and examined, sitting quietly in bed denies any new complaints, denies chest pain abdominal pain or shortness of breath or chills. Review of Systems Review of Systems: All systems reviewed are negative, apart from the ones contained in the history. Physical Exam Physical Exam: The patient is awake, alert and oriented 3, well developed and well nourished, normocephalic and atraumatic, lying in bed and in no acute distress. HEENT--PERRL, EOMI, mucous membranes and oropharynx mildly dry Neck--supple. No JVD. No bruits. Thyroid normal, trachea midline, no adenopathy. Heart--normal S1 and S2. No murmurs, rubs or gallops. Lungs--clear bilaterally, no respiratory distress, no accessory muscle use. Abdomen--surgical scar, clean wound. Extremities--no cyanosis or clubbing. No edema. Dermatologic--normal skin turgor, normal color, no abnormal lymph nodes, no rash. Neurologic--cranial nerves II through XII grossly intact. Rheumatologic--normal range of motion. Psychiatric--normal affect. Results & Data Results & Data Vital Signs (Past 12 Hours) Vital Signs Temp Pulse Pulse Resp BP BP Pulse Ox 08/12/23 08:31 92 H 129/71 08/12/23 08:16 91 H 145/75 H 08/12/23 07:15 98.8 F 91 H 18 145/75 H 99 08/12/23 05:35 81 08/12/23 04:52 94 H 121/67 08/12/23 02:51 97.5 F L 93 H 16 135/74 98 08/12/23 00:36 78 151/77 H 08/12/23 00:24 92 H 131/67 O2 Del Method O2 Flow Rate 08/12/23 08:31 08/12/23 08:16 08/12/23 07:15 Nasal Cannula 1.0 08/12/23 05:35 08/12/23 04:52 08/12/23 02:51 Nasal Cannula 3 08/12/23 00:36 08/12/23 00:24 PG Care Time/CCT Total # of Minutes Spent Total Time Spent with Patient: Total time spent is greater than 50% in coordination of care (as documented) at patient's floor/unit and/or counseling patient: Coding Level of Care Code 01356 SUB INP/OBS CARE 2/35MIN Diagnoses Shock R57.9 Intra-abdominal abscess K65.1 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 Status post laparotomy Z98.890 Cholecystitis K81.9 Hypernatremia E87.0 Gastroesophageal reflux disease, unspecified whether esophagitis present K21.9 Esophagitis presence: esophagitis presence not specified Endotracheally intubated Z97.8 History of intestinal obstruction Z87.19 Malnutrition E46 Time Spent (min) 35 (7) Gastroesophageal reflux disease Esophagitis presence: esophagitis presence not specified Qualified Code(s): K21.9 - Gastro-esophageal reflux disease without esophagitis
--- NOTE | 2023-08-12 13:45 | Infectious Disease Progress Nt ---
Date of Service August 12, 2023 Assessment & Plan (1) Shock: (2) Enterocutaneous fistula: (3) Status post laparotomy: (4) SBO (small bowel obstruction): (5) Cholecystitis: Plan #Acute necrotizing cholecystitis and enteritis #S/p SB resection, cholecystectomy #multiple IA abscess with 7 cm loculated fluid collection RLQ, not accessible by IR #Hypoxia on 3L 83 yo M with h/o splenectomy, bowel obstruction in past (managed w/o surgical intervention), Afib, L Hip arthroplasty, obesity admitted to [facility] on 07/28 with acute abdominal pain Admission labs showed WBC 9.7 but inc to 19 the next day, Chem normal, No blood cultures taken. CXR no pneumonia. CT A/P and RUQ u/s showed acute cholecystitis, OR 07/29 for acute cholecystitis which was converted to exploratory laparotomy, where he underwent cholecystectomy as well as small bowel resection, entero-enterostomy, repair of enterotomies and extensive enterolysis. OR reports gangrenous gallbladder. OR gallbladder fluid Cultures grew reveles sensitive kleb pneumo and c. perfringens, path showed severe acute necrotizing cholecystitis, small intestine path acute serositis with acute enteritis. He was treated with cefepime, flagyl, caspofungin 07/31 CT showed dependent airspace consolidation, free air in abdomen likely seco ndary to postoperative, mild edema in gallbladder fossa. Surgical drain in in RUQ not in gb flssa On consultation 08/09 he is 3L NC, WBC 20.18 (no significant change), chem normal, Given elevated WBC CT recommended which showed: 7 cm loculated fluid collection within the right lower quadrant suspicious for an abscess contiguous with an additional small fluid collection within the abdominal right lower quadrant - There is a separate smaller loculated fluid collection in the left lower colic gutter, 3.9 cm. Seen by IR on 08/10- and per notation preliminary imaging did not demonstrate an adequate window for percutaneous drainage. Therefore, the procedure was not performed. Per Surgery no further intervention- Discussion: Patient has abscesses not accessible to drainage, I would favor a 4-6 week abx regimen with close CT follow up. Would recommend he be treated with IV Unasyn for at least 2 weeks and repeat a ct then. If abscesses are improving can change to oral abx, likely augmentin 875/125 1 po bid to complete therapy RECOMMEND: -CW Unasyn 3G IV q6 hours, on discharge can change to 12 grams over 24 hour gtt -If no intervention, anticipate he will need at least 4-6 weeks of abx therapy based on CT follow up findings -Please help him set up ID in community for followup, [facility] [place] will not follow patient as outpatient -Plan for weekly CBC with diff, CMP while on IV therapy -Plan for rpeat CT imaging of abdomen while on IV abx in next 2-3 weeks then can consider changing to oral to complete therapy Can place PICC ID will s/o Please call with any questions or concerns Jess Thurston MD Infectious Diseases Admission and Anticipated Discharge Date Admission Date: July 29, 2023 Subjective This patient recommendation is based on a telemedicine consult request which was completed asynchronously through chart review and information provided by the primary physician. The patient was not seen or examined today. The evaluation is consultative in nature and all patient care and treatment decisions can either be accepted or rejected by the patient's primary hospital-based treating physician using their own independent medical judgment for their patient. Time Spent Reviewing Chart: 21 - 30 minutes Results & Data Vital Signs (Past 12 Hours) Vital Signs Temp Pulse Pulse Resp BP BP Pulse Ox 08/12/23 12:59 88 141/72 H 08/12/23 12:44 109 H 122/67 08/12/23 11:51 36.9 C 64 19 122/67 93 08/12/23 08:31 92 H 129/71 08/12/23 08:16 91 H 145/75 H 08/12/23 07:15 37.1 C 91 H 18 145/75 H 99 08/12/23 05:35 81 08/12/23 04:52 94 H 121/67 08/12/23 02:51 36.4 C L 93 H 16 135/74 98 O2 Del Method O2 Flow Rate 08/12/23 12:59 08/12/23 12:44 08/12/23 11:51 Room Air 08/12/23 08:31 08/12/23 08:16 08/12/23 07:15 Nasal Cannula 1.0 08/12/23 05:35 08/12/23 04:52 08/12/23 02:51 Nasal Cannula 3 Laboratory Results Short CBC 08/12/23 Range/Units 07:36 WBC 17.41 H (4.8-10.8) K/ul Hgb 10.8 L (14.0-18.0) g/dl Hct 33.8 L (42.0-52.0) % Plt Count 572 H (130-400) K/uL BMP 08/12/23 07:36 Sodium 144 Potassium 4.1 Chloride 110 H Carbon Dioxide 30 BUN 39 H Creatinine 0.63 Glucose 147 H Calcium 9.0 Microbiology 08/10/23 10:19 Blood Aerobic Blood Culture - Preliminary No growth in Aerobic bottle after 48 hours. 08/10/23 10:19 Blood Anaerobic Blood Culture - Final 08/10/23 10:27 Blood Aerobic Blood Culture - Preliminary No growth in Aerobic bottle after 48 hours. 08/10/23 10:27 Blood Anaerobic Blood Culture - Preliminary No growth in Anaerobic bottle after 48 hours. 07/30/23 12:39 Gallbladder Fluid Gram Stain - Final 07/30/23 12:39 Gallbladder Fluid Aerobic and Anaerobic Culture - Final Klebsiella pneumoniae Clostridium perfringens
[2023-08-12] MEDS: METOPROLOL TARTRATE 1 MG/ML VIAL IV STA (13:54)
[2023-08-12] MEDS ORDERED: STAT IV Infusion **Titration per Protocol STA ×2 (15:22→16:53)
[2023-08-12] MEDS: dilTIAZem HCL 125 MG in DEXTROSE 5% 100 ML IV SCH (15:48)
[2023-08-12] MEDS: CLINOLIPID 20% IV FAT EMULSION 250 ML IV SCH (15:54)
[2023-08-12] MEDS: [UNRECOGNIZED DRUG - OTHER] IV SCH (15:54)
[2023-08-12] MEDS: CENTRAL TPN IV SCH (15:54)
[2023-08-12] MEDS ORDERED: 0.2 MICRON FILTER SET 1 EACH IV STA (16:53)
[2023-08-12] MEDS: AMIODARONE / D5W 150 MG/100 ML BAG IV STA (17:09)
[2023-08-12] MEDS: AMIODARONE IV BOLUS & DRIP IV STA (17:15)
[2023-08-12] MEDS: AMIODARONE / D5W 360 MG/200 ML BAG IV ONE (17:24)
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
[2023-08-12] MEDS ORDERED: Nursing to Pharmacy Communication SCH (19:30)
[2023-08-12] MEDS: METOPROLOL TARTRATE 1 MG/ML VIAL IV SCH (19:56)
[2023-08-12] MEDS: AMIODARONE / D5W 360 MG/200 ML BAG IV SCH (23:08)
--- NOTE | 2023-08-13 05:04 | Communication Note ---
Date of Service: August 13, 2023 Notified by nursing of concern for increased erythema/edema in right foot compared to left. Examined pt at bedside and right foot with erythema/trace edema. + Calf tenderness on right. 2+ dorsalis pedis pulses B/L. Venous Doppler right LE order. Uric acid pending.
[2023-08-13 06:23] LABS: BUN Creatinine Ratio 53.4 (10-20); Calcium 8.9 mg/dl (8.6-10.3); Creatinine Clr Calc Pharmacy 87.6 ml/min; Est GFR (Non-African American) 84.6 ml/min; Magnesium 2.1 mg/dl (1.7-2.4); Phosphorus 3.2 mg/dl (2.5-4.9); Potassium 3.5 mmol/L (3.5-5.1); Uric Acid 3.5 mg/dl (2.6-7.2)
[2023-08-13 06:49] LABS: Hematocrit (blood only) 31.7 % (42.0-52.0); Hemoglobin 10.3 g/dl (14.0-18.0); Mean Corpuscular Hgb Conc 32.5 g/dL (32.0-36.0); Mean Corpuscular Volume 89.3 fL (80.0-100.0); Mean Platelet Volume 11.6 fL (9.4-12.4); Platelet Count 596 K/uL (130-400); RDW Coefficient of Variation 15.7 % (11.5-14.5); RDW Standard Deviation 50.2 fL (36.4-46.3); Red Blood Count 3.55 M/uL (4.70-6.10); White Blood Count 15.88 K/ul (4.8-10.8)
--- NOTE | 2023-08-13 10:12 | Ultrasound Report ---
US venous doppler LE RT HISTORY: 83 years-old Male right leg warm/swollen/tender acute and swelling of right lower leg COMPARISON: 02/03/2022 TECHNIQUE: Multiple real-time sonographic images of the right lower extremity deep venous structures were obtained assessing grayscale appearance, color and spectral flow. FINDINGS: Occlusive thrombus within the duplicated posterior tibial veins and also within one of the peroneal v eins. No additional deep or superficial venous thrombi. IMPRESSION: Likely acute DVT as above. ACT 112: Negative or not required by law. The above report was generated using voice recognition software. It may contain grammatical, syntax o r spelling errors. Electronically signed by: Daniel Payne M.D. 08/13/2023 10:11 AM
--- NOTE | 2023-08-13 10:13 | Hospitalist Progress Note ---
Date of Service August 13, 2023 Assessment & Plan (1) Shock: Plan: resolved (2) Intra-abdominal abscess: Plan: Repeat CT abdomen and pelvis showed a 7 cm loculated fluid collection in the right lower quadrant suspicious for an abscess. However per general surgery there was no adequate window for percutaneous drainage. Continue IV antibiotics. 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 (5) Status post laparotomy: Plan: Initially patient was thought to have acute cholecystitis. Went to the OR for laparoscopic cholecystectomy was converted to exploratory laparotomy, bowel resection. 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 Wound appears clean and healing well Wound VAC replaced today(08/11) NG tube in place PICC line in place TPN was started 08/03 as the patient for nutritional support Continue wound care (6) Cholecystitis: Plan: Status post gallbladder removal Gallbladder fluid grew Klebsiella and Clostridium perfringens Currently on IV Unasyn (7) Hypernatremia: Plan: Resolved (8) Gastroesophageal reflux disease: Plan: Was on famotidine on admisison, now on IV Protonix (9) Endotracheally intubated: Plan: Extubated 07/31 On 3 L/m nasal canula Sa02 94-97% (10) History of intestinal obstruction: Plan: History of small bowel obstruction in the past (11) Malnutrition: Plan: Continue TPN (12) History of DVT (deep vein thrombosis): Plan: right calf pain will get US duplex also left leg is cold to touch, will obtain vascular arterial studies Plan VTE Prophylaxis: Was on heparin 3 times daily, when noted coffee ground from drain and heparin placed on hold (08/04), will order SCD Diet - NPO to continue as per surgery Admission and Anticipated Discharge Date Admission Date: July 29, 2023 Subjective Patient seen and examined, sitting quietly in bed denies any new complaints, denies chest pain abdominal pain or shortness of breath or chills. Review of Systems Review of Systems: All systems reviewed are negative, apart from the ones contained in the history. Physical Exam Physical Exam: The patient is awake, alert and oriented 3, well developed and well nourished, normocephalic and atraumatic, lying in bed and in no acute distress. HEENT--PERRL, EOMI, mucous membranes and oropharynx mildly dry Neck--supple. No JVD. No bruits. Thyroid normal, trachea midline, no adenopathy. Heart--normal S1 and S2. No murmurs, rubs or gallops. Lungs--clear bilaterally, no respiratory distress, no accessory muscle use. Abdomen--surgical scar, clean wound. Extremities--no cyanosis or clubbing. No edema. Dermatologic--normal skin turgor, normal color, no abnormal lymph nodes, no rash. Neurologic--cranial nerves II through XII grossly intact. Rheumatologic--normal range of motion. Psychiatric--normal affect. Results & Data Results & Data Vital Signs (Past 12 Hours) Vital Signs Temp Pulse Pulse Resp BP BP Pulse Ox 08/13/23 08:27 76 123/74 08/13/23 08:04 89 142/80 H 08/13/23 07:45 97.7 F 89 18 142/80 H 95 08/13/23 04:52 87 118/73 08/13/23 04:37 90 127/75 08/13/23 04:27 97.9 F 90 20 127/75 95 08/13/23 03:30 98.4 F 88 20 131/65 94 08/13/23 01:19 97.7 F 88 19 122/62 94 08/13/23 00:59 83 111/69 08/13/23 00:44 95 H 123/70 08/13/23 00:43 95 H 21 123/70 95 08/13/23 00:00 96 H 08/12/23 23:00 97.5 F L 97 H 18 114/72 90 O2 Del Method 08/13/23 08:27 08/13/23 08:04 08/13/23 07:45 Room Air 08/13/23 04:52 08/13/23 04:37 08/13/23 04:27 Room Air 08/13/23 03:30 Room Air 08/13/23 01:19 Room Air 08/13/23 00:59 08/13/23 00:44 08/13/23 00:43 Room Air 08/13/23 00:00 08/12/23 23:00 Room Air PG Care Time/CCT Total # of Minutes Spent Total Time Spent with Patient: Total time spent is greater than 50% in coordination of care (as documented) at patient's floor/unit and/or counseling patient: Coding Level of Care Code 27366 SUB INP/OBS CARE 2/35MIN Diagnoses Shock R57.9 Intra-abdominal abscess K65.1 Atrial fibrillation I48.91 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 Status post laparotomy Z98.890 Cholecystitis K81.9 Hypernatremia E87.0 Gastroesophageal reflux disease, unspecified whether esophagitis present K21.9 Esophagitis presence: esophagitis presence not specified Endotracheally intubated Z97.8 History of intestinal obstruction Z87.19 Malnutrition E46 History of DVT (deep vein thrombosis) Z86.718 Time Spent (min) 35 (8) Gastroesophageal reflux disease Esophagitis presence: esophagitis presence not specified Qualified Code(s): K21.9 - Gastro-esophageal reflux disease without esophagitis
--- NOTE | 2023-08-13 10:13 | Ultrasound Report ---
US arterial duplex LE LT HISTORY: 83 years-old Male cold leg- ok not to do lyndsay acute left leg pain COMPARISON: None TECHNIQUE: Arterial ultrasound with color, spectral flow and grayscale analysis FINDINGS: Triphasic waveforms throughout. No arterial occlusion or elevated peak systolic velocities to suggest high-grade stenosis. IMPRESSION: Unremarkable exam. ACT 112: Negative or not required by law. The above report was generated using voice recognition software. It may contain grammatical, syntax o r spelling errors. Electronically signed by: Daniel Payne M.D. 08/13/2023 10:12 AM
[2023-08-13 11:22] LABS: Basophils # (auto) 0.09 K/uL (0.00-0.20); Basophils % (auto) 0.6 %; Eosinophils # (auto) 0.22 K/uL (0.00-0.50); Eosinophils % (auto) 1.4 %; Hematocrit (blood only) 34.6 % (42.0-52.0); Hemoglobin 11.1 g/dl (14.0-18.0); Immature Granulocytes # (auto) 0.14 K/uL (0.01-0.20); Immature Granulocytes % (auto) 0.9 %; Lymphocytes # (auto) 1.96 K/uL (1.20-3.40); Lymphocytes % (auto) 12.8 %; Mean Corpuscular Hemoglobin 28.8 pg (25.0-34.0); Mean Corpuscular Hgb Conc 32.1 g/dL (32.0-36.0); Mean Corpuscular Volume 89.6 fL (80.0-100.0); Mean Platelet Volume 11.3 fL (9.4-12.4); Monocytes # (auto) 1.92 K/uL (0.11-0.59); Monocytes % (auto) 12.5 %; Neutrophils # (auto) 11.02 K/uL (1.40-6.50); Neutrophils % (auto) 71.8 %; Platelet Count 618 K/uL (130-400); RDW Coefficient of Variation 15.7 % (11.5-14.5); RDW Standard Deviation 50.4 fL (36.4-46.3); Red Blood Count 3.86 M/uL (4.70-6.10); White Blood Count 15.35 K/ul (4.8-10.8)
[2023-08-13 11:49] LABS: INR 1.2 (0.9-1.1); Partial Thromboplastin Ratio 0.9; Partial Thromboplastin Time 25 Seconds (21-31); Prothrombin Time 12.4 Seconds (9.0-12.0)
[2023-08-13] MEDS: Heparin IV Adult Wt-Based Standard *NO* INITIAL Bolus Protocol IV STA (11:57)
[2023-08-13] MEDS: HEPARIN SODIUM/DEXTROSE 25,000 UNITS/500 ML BAG IV SCH (12:30)
[2023-08-13] MEDS: [UNRECOGNIZED DRUG - OTHER] IV SCH (17:10)
[2023-08-13] MEDS: CENTRAL TPN IV SCH (17:10)
[2023-08-13] MEDS: CLINOLIPID 20% IV FAT EMULSION 250 ML IV SCH (17:10)
[2023-08-13 19:34] LABS: ANTI-Xa, UFH(UnfractionatedHep 0.56 IU/ml (0.3-0.7)
[2023-08-13] MEDS ORDERED: Nursing to Pharmacy Communication SCH (20:00)
--- NOTE | 2023-08-14 | XCELERA ---
[id number]
[2023-08-14] MEDS ORDERED: Nursing to Pharmacy Communication SCH (06:45)
[2023-08-14 07:23] LABS: Hematocrit (blood only) 30.1 % (42.0-52.0); Mean Corpuscular Hemoglobin 28.8 pg (25.0-34.0); Mean Corpuscular Hgb Conc 33.2 g/dL (32.0-36.0); Mean Corpuscular Volume 86.7 fL (80.0-100.0); Mean Platelet Volume 11.9 fL (9.4-12.4); Platelet Count 610 K/uL (130-400); RDW Coefficient of Variation 15.3 % (11.5-14.5); RDW Standard Deviation 47.8 fL (36.4-46.3); Red Blood Count 3.47 M/uL (4.70-6.10); White Blood Count 17.19 K/ul (4.8-10.8)
[2023-08-14 07:36] LABS: ANTI-Xa, UFH(UnfractionatedHep 0.58 IU/ml (0.3-0.7)
[2023-08-14 07:37] LABS: Magnesium 1.9 mg/dl (1.7-2.4); Phosphorus 2.7 mg/dl (2.5-4.9)
--- NOTE | 2023-08-14 07:59 | Ultrasound Report ---
LEFT LOWER EXTREMITY VENOUS DOPPLER HISTORY: Swelling of the left lower leg Increased erythema and swelling of RLE, R/o DVT COMPARISON STUDY: None. FINDINGS: Near occlusive thrombus noted within the duplicated posterior tibial and peroneal veins. Th e study is otherwise unremarkable. Findings are likely acute. IMPRESSION: Left lower extremity DVT. ACT 112: Negative or not required by law. Electronically signed by: Daniel Payne M.D. 08/14/2023 7:58 AM
[2023-08-14 08:36] LABS: Calcium 8.9 mg/dl (8.6-10.3); Creatinine Clr Calc Pharmacy 99.2 ml/min; Est GFR (African American) 104.1 ml/min; Est GFR (Non-African American) 89.9 ml/min; Potassium 3.4 mmol/L (3.5-5.1)
--- NOTE | 2023-08-14 09:53 | Hospitalist Progress Note ---
Date of Service August 14, 2023 Assessment & Plan (1) History of DVT (deep vein thrombosis): Plan: Now with new acute DVT on both lower extremities Started on heparin infusion Will monitor for bleeding, given recent bloody effluent fron CRICKET drain(now removed) and possible GI bleed (dark aspirate from NG tube) Explained to patient and family that the risk of from PE is higher than the risk of from bleeding, hence the decision to start heparin in spite of his bleeding risk (2) Shock: Plan: resolved (3) Intra-abdominal abscess: Plan: Repeat CT abdomen and pelvis showed a 7 cm loculated fluid collection in the right lower quadrant suspicious for an abscess. However per general surgery there was no adequate window for percutaneous drainage. Continue IV antibiotics. 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 (6) Status post laparotomy: Plan: Initially patient was thought to have acute cholecystitis. Went to the OR for laparoscopic cholecystectomy was converted to exploratory laparotomy, bowel resection. 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 Wound appears clean and healing well Wound VAC replaced today(08/11) NG tube in place PICC line in place TPN was started 08/03 as the patient for nutritional support Continue wound care (7) Cholecystitis: Plan: Status post gallbladder removal Gallbladder fluid grew Klebsiella and Clostridium perfringens Currently on IV Unasyn (8) Hypernatremia: Plan: Resolved (9) Gastroesophageal reflux disease: Plan: Was on famotidine on admisison, now on IV Protonix (10) Endotracheally intubated: Plan: Extubated 07/31 On 3 L/m nasal canula Sa02 94-97% (11) History of intestinal obstruction: Plan: History of small bowel obstruction in the past (12) Malnutrition: Plan: Continue TPN Plan VTE Prophylaxis: Was on heparin 3 times daily, when noted coffee ground from drain and heparin placed on hold (08/04), will order SCD Diet - NPO to continue as per surgery Admission and Anticipated Discharge Date Admission Date: July 29, 2023 Subjective Patient seen and examined, sitting quietly in bed denies any new complaints, denies chest pain abdominal pain or shortness of breath or chills. Review of Systems Review of Systems: All systems reviewed are negative, apart from the ones contained in the history. Physical Exam Physical Exam: The patient is awake, alert and oriented 3, well developed and well nourished, normocephalic and atraumatic, lying in bed and in no acute distress. HEENT--PERRL, EOMI, mucous membranes and oropharynx mildly dry Neck--supple. No JVD. No bruits. Thyroid normal, trachea midline, no adenopathy. Heart--normal S1 and S2. No murmurs, rubs or gallops. Lungs--clear bilaterally, no respiratory distress, no accessory muscle use. Abdomen--surgical scar, clean wound. Extremities--no cyanosis or clubbing. No edema. Dermatologic--normal skin turgor, normal color, no abnormal lymph nodes, no rash. Neurologic--cranial nerves II through XII grossly intact. Rheumatologic--normal range of motion. Psychiatric--normal affect. Results & Data Results & Data Vital Signs (Past 12 Hours) Vital Signs Temp Pulse Pulse Resp BP BP Pulse Ox 08/14/23 08:45 102 H 08/14/23 08:15 100 H 129/68 08/14/23 07:59 99.0 F 105 H 17 129/68 94 08/14/23 04:59 90 120/69 08/14/23 04:44 103 H 120/68 08/14/23 03:25 98.4 F 97 H 20 129/73 95 08/14/23 00:48 81 117/65 08/14/23 00:33 93 H 131/72 08/14/23 00:23 98.4 F 93 H 131/72 94 08/14/23 00:00 92 H 08/13/23 23:15 97.5 F L 94 H 21 114/59 L 96 O2 Del Method 08/14/23 08:45 08/14/23 08:15 08/14/23 07:59 Room Air 08/14/23 04:59 08/14/23 04:44 08/14/23 03:25 Room Air 08/14/23 00:48 08/14/23 00:33 08/14/23 00:23 Room Air 08/14/23 00:00 08/13/23 23:15 Room Air PG Care Time/CCT Total # of Minutes Spent Total Time Spent with Patient: Total time spent is greater than 50% in coordination of care (as documented) at patient's floor/unit and/or counseling patient: Coding Level of Care Code 74294 SUB INP/OBS CARE 2/35MIN Diagnoses History of DVT (deep vein thrombosis) Z86.718 Shock R57.9 Intra-abdominal abscess K65.1 Atrial fibrillation I48.91 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 Status post laparotomy Z98.890 Cholecystitis K81.9 Hypernatremia E87.0 Gastroesophageal reflux disease, unspecified whether esophagitis present K21.9 Esophagitis presence: esophagitis presence not specified Endotracheally intubated Z97.8 History of intestinal obstruction Z87.19 Malnutrition E46 Time Spent (min) 35 (9) Gastroesophageal reflux disease Esophagitis presence: esophagitis presence not specified Qualified Code(s): K21.9 - Gastro-esophageal reflux disease without esophagitis
--- NOTE | 2023-08-14 11:09 | Surgery Progress Note ---
Date of Service August 14, 2023 Assessment & Plan (1) Cholecystitis: Plan: s/p ex lap con't NG and TPN DVT, ? PE on heparin no surgical changes Admission and Anticipated Discharge Date Admission Date: July 29, 2023 Subjective a little more SOB this AM HR elevated no abdominal pain Review of Systems Constitutional: + fever and + chills Respiratory: + dyspnea; no cough Cardiovascular: no chest pain Gastrointestinal: + abdominal pain; no nausea NG in palce Genitourinary: no dysuria Neurologic: + generalized weakness; no localized wea kness Psychiatric: no behavioral changes Physical Exam Respiratory: + labored breathing Auscultation: + d iminished lung sounds Cardiovascular: Rate/Rhythm: + tachycardic Gastrointestinal (Abdomen): Inspection/Auscultation: abdomen normal to inspection and + abdomen distended; + abnormal bowel sounds Percussion/Palpation: + abdomen tender and abdomen soft; no guarding and abdomen not rigid Musculoskeletal: Head/Neck/Chest: normocephalic and head atraumatic Results & Data Vital Signs (Past 12 Hours) Vital Signs Temp Pulse Pulse Resp BP BP Pulse Ox 08/14/23 08:45 102 H 08/14/23 08:15 100 H 129/68 08/14/23 07:59 37.2 C 105 H 17 129/68 94 08/14/23 04:59 90 120/69 08/14/23 04:44 103 H 120/68 08/14/23 03:25 36.9 C 97 H 20 129/73 95 08/14/23 00:48 81 117/65 08/14/23 00:33 93 H 131/72 08/14/23 00:23 36.9 C 93 H 131/72 94 08/14/23 00:00 92 H 08/13/23 23:15 36.4 C L 94 H 21 114/59 L 96 O2 Del Method 08/14/23 08:45 08/14/23 08:15 08/14/23 07:59 Room Air 08/14/23 04:59 08/14/23 04:44 08/14/23 03:25 Room Air 08/14/23 00:48 08/14/23 00:33 08/14/23 00:23 Room Air 08/14/23 00:00 08/13/23 23:15 Room Air
[2023-08-14] MEDS: METOPROLOL TARTRATE 1 MG/ML VIAL IV SCH (17:00)
[2023-08-14] MEDS: [UNRECOGNIZED DRUG - OTHER] IV SCH (17:31)
[2023-08-14] MEDS: CENTRAL TPN IV SCH (17:31)
[2023-08-14] MEDS: CLINOLIPID 20% IV FAT EMULSION 250 ML IV SCH (17:32)
[2023-08-15 07:42] LABS: Hematocrit (blood only) 29.3 % (42.0-52.0); Hemoglobin 9.5 g/dl (14.0-18.0); Mean Corpuscular Hemoglobin 28.3 pg (25.0-34.0); Mean Corpuscular Hgb Conc 32.4 g/dL (32.0-36.0); Mean Corpuscular Volume 87.2 fL (80.0-100.0); Mean Platelet Volume 11.9 fL (9.4-12.4); Platelet Count 594 K/uL (130-400); RDW Coefficient of Variation 15.8 % (11.5-14.5); RDW Standard Deviation 49.8 fL (36.4-46.3); Red Blood Count 3.36 M/uL (4.70-6.10); White Blood Count 13.98 K/ul (4.8-10.8)
[2023-08-15 08:00] LABS: BUN Creatinine Ratio 41.1 (10-20); Calcium 8.8 mg/dl (8.6-10.3); Creatinine Clr Calc Pharmacy 85.9 ml/min; Est GFR (Non-African American) 84.6 ml/min; Phosphorus 3.6 mg/dl (2.5-4.9); Potassium 3.3 mmol/L (3.5-5.1)
[2023-08-15 08:04] LABS: ANTI-Xa, UFH(UnfractionatedHep 0.64 IU/ml (0.3-0.7)
--- NOTE | 2023-08-15 09:06 | Cardiology Progress Note ---
Date of Service August 15, 2023 Assessment & Plan Admission and Anticipated Discharge Date Admission Date: July 29, 2023 Subjective He denies any chest pain or chest pressure. He has no shortness of breath. He has no lightheadedness or dizziness. He has no lower extremity edema. He is unaware of any palpitations or fluttering. He is hopeful to get the NG tube out sometime this week. Results & Data Vital Signs (Past 12 Hours) Vital Signs Temp Pulse Pulse Resp BP BP Pulse Ox 08/15/23 07:23 73 08/15/23 07:17 36.4 C L 83 20 118/67 99 08/15/23 05:55 68 108/65 08/15/23 05:39 68 123/73 08/15/23 02:15 37.1 C 94 H 20 118/70 96 08/15/23 01:13 104 H 08/15/23 00:17 82 118/71 08/15/23 00:02 98 H 131/70 08/14/23 23:55 98 H 131/70 08/14/23 23:00 36.8 C 104 H 18 145/72 H 97 O2 Del Method O2 Flow Rate 08/15/23 07:23 08/15/23 07:17 Nasal Cannula 1 08/15/23 05:55 08/15/23 05:39 08/15/23 02:15 Nasal Cannula 1 08/15/23 01:13 08/15/23 00:17 08/15/23 00:02 08/14/23 23:55 08/14/23 23:00 Room Air He is awake alert and oriented x 3. HEENT: 2+ carotid upstrokes Lungs: Decreased breath sounds but no rales rhonchi or wheezing Heart: Regular rate and rhythm no murmurs or rubs Abdomen: Bowel sounds were present abdomen was soft extremities no clubbing cyanosis or edema psychiatric appeared appropriate (1) Shock:Resolved (2) Intra-abdominal abscess: (3) Enterocutaneous fistula: (4) Status post laparotomy: (5) Cholecystitis: 6. VDRF -- resolved 7. PAF and Flutter 8. 7 cm abd abscess 9. Hx B/L PE 2015 10. Hx NMl LV fxn LVEF 65% 11. Possible pulmonary embolism as a cause for his worsening atrial arrhythmias and hypoxemia on Tuesday He is maintaining sinus rhythm with amiodarone. I would continue with IV amiodarone until he is able to take oral. Once he is able to take oral amiodarone he can be placed on 200 mg daily. I would continue with IV beta-blockers again until he can take oral beta- blockers. His heart rate and blood pressure seem reasonable. He will also have to watch his volume status given the amount of TPN he is receiving. He may need intermittent diuretics to control his volume status. If you have any questions with regards to transitioning him from IV to p.o. medications please let us know.
--- NOTE | 2023-08-15 11:21 | Hospitalist Progress Note ---
Date of Service August 15, 2023 Assessment & Plan (1) History of DVT (deep vein thrombosis): Plan: Now with new acute DVT on both lower extremities, And possibly PE, given recent hypoxemia and worsening arrhythmias. Started on heparin infusion Will monitor for bleeding, given recent bloody effluent from CRICKET drain(now removed) and possible GI bleed (dark aspirate from NG tube) Explained to patient and family that the risk of from PE is higher than the risk of from bleeding, hence the decision to start heparin in spite of his bleeding risk (2) Intra-abdominal abscess: Plan: Repeat CT abdomen and pelvis showed a 7 cm loculated fluid collection in the right lower quadrant suspicious for an abscess. However per general surgery there was no adequate window for percutaneous drainage. Continue IV antibiotics. 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 Although unable to confirm PE because patient is too unstable to go for CT angio. However we will continue full anticoagulation on heparin. Now on Amiodarone infusion On heparin infusion, transition to PO anticoagulation when able to take by mouth Cardiology on consult, appreciate recs (4) Enterocutaneous fistula: Plan: Enterocutaneous fistula: Per general surgery, CRICKET drain will be discontinued Wound VAC was changed today For possible speech and swallow eval today, Hopefully after removal of NG tube, in the meantime keep the NG tube and TPN going Appreciate surgery commendations. (5) Status post laparotomy: Plan: Initially patient was thought to have acute cholecystitis. Went to the OR for laparoscopic cholecystectomy was converted to exploratory laparotomy, bowel resection. 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 Wound appears clean and healing well Wound VAC replaced today(08/11) NG tube in place PICC line in place TPN was started 08/03 as the patient for nutritional support Continue wound care (6) Cholecystitis: Plan: Status post gallbladder removal Gallbladder fluid grew Klebsiella and Clostridium perfringens Currently on IV Unasyn (7) Hypernatremia: Plan: Resolved (8) Shock: Plan: resolved (9) Gastroesophageal reflux disease: Plan: Was on famotidine on admisison, now on IV Protonix (10) Endotracheally intubated: Plan: Extubated 07/31 On 3 L/m nasal canula Sa02 94-97% (11) History of intestinal obstruction: Plan: History of small bowel obstruction in the past (12) Malnutrition: Plan: Continue TPN Plan VTE Prophylaxis: Was on heparin 3 times daily, when noted coffee ground from drain and heparin placed on hold (08/04), will order SCD Diet - NPO to continue as per surgery Admission and Anticipated Discharge Date Admission Date: July 29, 2023 Subjective Patient seen and examined, still has NG tube, denies any new complaints but hoping to have the NG tube removed so he can start some orals.He is in good spirits Review of Systems Review of Systems: All systems reviewed are negative, apart from the ones contained in the history. Physical Exam Physical Exam: The patient is awake, alert and oriented 3, well developed and well nourished, normocephalic and atraumatic, lying in bed and in no acute distress. HEENT--PERRL, EOMI, mucous membranes and oropharynx mildly dry Neck--supple. No JVD. No bruits. Thyroid normal, trachea midline, no adenopathy. Heart--normal S1 and S2. No murmurs, rubs or gallops. Lungs--clear bilaterally, no respiratory distress, no accessory muscle use. Abdomen--surgical scar, clean wound. Extremities--no cyanosis or clubbing. No edema. Dermatologic--normal skin turgor, normal color, no abnormal lymph nodes, no rash. Neurologic--cranial nerves II through XII grossly intact. Rheumatologic--normal range of motion. Psychiatric--normal affect. Results & Data Results & Data Vital Signs (Past 12 Hours) Vital Signs Temp Pulse Pulse Resp BP BP Pulse Ox 08/15/23 07:51 08/15/23 07:23 73 08/15/23 07:17 97.5 F L 83 20 118/67 99 08/15/23 05:55 68 108/65 08/15/23 05:39 68 123/73 08/15/23 02:15 98.8 F 94 H 20 118/70 96 08/15/23 01:13 104 H 05/20/24 00:17 82 118/71 08/15/23 00:02 98 H 131/70 08/14/23 23:55 98 H 131/70 O2 Del Method O2 Flow Rate 08/15/23 07:51 Nasal Cannula 1 08/15/23 07:23 08/15/23 07:17 Nasal Cannula 1 08/15/23 05:55 08/15/23 05:39 08/15/23 02:15 Nasal Cannula 1 08/15/23 01:13 08/15/23 00:17 08/15/23 00:02 08/14/23 23:55 PG Care Time/CCT Total # of Minutes Spent Total Time Spent with Patient: Total time spent is greater than 50% in coordination of care (as documented) at patient's floor/unit and/or counseling patient: Coding Level of Care Code 52347 SUB INP/OBS CARE 2/35MIN Diagnoses History of DVT (deep vein thrombosis) Z86.718 Intra-abdominal abscess K65.1 Atrial fibrillation I48.91 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 Status post laparotomy Z98.890 Cholecystitis K81.9 Hypernatremia E87.0 Shock R57.9 Gastroesophageal reflux disease, unspecified whether esophagitis present K21.9 Esophagitis presence: esophagitis presence not specified Endotracheally intubated Z97.8 History of intestinal obstruction Z87.19 Malnutrition E46 Time Spent (min) 35 (9) Gastroesophageal reflux disease Esophagitis presence: esophagitis presence not specified Qualified Code(s): K21.9 - Gastro-esophageal reflux disease without esophagitis
--- NOTE | 2023-08-15 13:01 | Surgery Progress Note ---
Date of Service August 15, 2023 Assessment & Plan (1) Hx laparoscopic cholecystectomy: Plan: I'm very pleased with his progress. vac changed today. no bile in the wound bed and only small amount of drainage since 08/11/23. will pull his ngt and obtain speech/swallowing consult... can try liquids after they evaluate him... if drainage dramatically increases may need to go back to npo. wbc continues to trend toward normal and continues to have no fevers. ant ibiotic rec's per ID. cont PT/OT (2) Intra-abdominal abscess: (3) Enterocutaneous fistula: Admission and Anticipated Discharge Date Admission Date: July 29, 2023 Subjective pt seen. at bedside. denies pain or nausea...her main concern is depression is setting in.... though admittedly he is in better spirits today. desperately wants ngt out. Physical Exam Physical Exam: awake/alert. in no distress vac changed: wound bed with some slough but also primarily has nice pink granulation tissue. no evidence of bile in wound bed. no /necrotic tissue to debride. Results & Data Vital Signs (Past 12 Hours) Vital Signs Temp Pulse Pulse Resp BP BP Pulse Ox 08/15/23 11:35 77 106/62 08/15/23 11:20 89 118/70 08/15/23 11:17 36.7 C 89 20 118/70 94 08/15/23 07:51 08/15/23 07:23 73 08/15/23 07:17 36.4 C L 83 20 118/67 99 08/15/23 05:55 68 108/65 08/15/23 05:39 68 123/73 08/15/23 02:15 37.1 C 94 H 20 118/70 96 08/15/23 01:13 104 H O2 Del Method O2 Flow Rate 08/15/23 11:35 08/15/23 11:20 08/15/23 11:17 Room Air 08/15/23 07:51 Nasal Cannula 1 08/15/23 07:23 08/15/23 07:17 Nasal Cannula 1 08/15/23 05:55 08/15/23 05:39 08/15/23 02:15 Nasal Cannula 1 08/15/23 01:13 PG Care Time/CCT Total # of Minutes Spent Total Time Spent with Patient: Total time spent is greater than 50% in coordination of care (as documented) at patient's floor/unit and/or counseling patient: Coding Level of Care Code 47582 Post Operative Follow-Up Diagnoses Hx laparoscopic cholecystectomy Z90.49 Intra-abdominal abscess K65.1 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
[2023-08-15] MEDS: CLINOLIPID 20% IV FAT EMULSION 250 ML IV SCH (16:33)
[2023-08-15] MEDS: [UNRECOGNIZED DRUG - OTHER] IV SCH (16:34)
[2023-08-15] MEDS: CENTRAL TPN IV SCH (16:34)
[2023-08-16] MEDS ORDERED: Nursing to Pharmacy Communication SCH (03:30)
[2023-08-16 06:45] LABS: Hematocrit (blood only) 28.4 % (42.0-52.0); Hemoglobin 9.3 g/dl (14.0-18.0); Mean Corpuscular Hemoglobin 28.2 pg (25.0-34.0); Mean Corpuscular Hgb Conc 32.7 g/dL (32.0-36.0); Mean Corpuscular Volume 86.1 fL (80.0-100.0); Mean Platelet Volume 11.9 fL (9.4-12.4); Platelet Count 544 K/uL (130-400); RDW Coefficient of Variation 15.3 % (11.5-14.5); RDW Standard Deviation 48.1 fL (36.4-46.3); White Blood Count 13.05 K/ul (4.8-10.8)
[2023-08-16 07:00] LABS: BUN Creatinine Ratio 44.6 (10-20); Calcium 8.8 mg/dl (8.6-10.3); Creatinine Clr Calc Pharmacy 97.8 ml/min; Est GFR (African American) 102.8 ml/min; Est GFR (Non-African American) 88.7 ml/min; Magnesium 1.9 mg/dl (1.7-2.4); Phosphorus 3.4 mg/dl (2.5-4.9); Potassium 3.5 mmol/L (3.5-5.1)
[2023-08-16 07:03] LABS: ANTI-Xa, UFH(UnfractionatedHep 0.44 IU/ml (0.3-0.7)
--- NOTE | 2023-08-16 07:21 | Surgery Progress Note ---
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 + small amount of flatus WBC 13, hbg 9.3. Vitals are stable On Heparin gtt for DVT's founded over the wknd NGT was removed yesterday without event. Speech therapy consulted and recommended full liquids + ECF being managed currently with wound vac. Will monitor wound and output now that he is on a liquid diet, if increasing output may need to back down to NPO Continue PICC/TPN ID following and appreciate their recs for abx guidance/management He needs to get OOB ambulating and to chair, PT is also ordered as above. looks pretty good. waiting speech/swallowing to complete their eval cont PT/OT. no bile in vac cannister cont TPN Admission and Anticipated Discharge Date Admission Date: July 29, 2023 Subjective Patient feeling better without NGT. Said he only really had some ice-chips since removal thus far. Denies nausea/vomiting/abdominal pain/chest pain/or shortness of breath. Passing some flatus. No BM. Physical Exam Physical Exam: awake, no distress Respiratory: normal respiratory effort on room air Gastrointestinal (Abdomen): Inspection/Auscultation: + abdominal surgical incision (wound vac in place, mild redness around umbilical skin (likely irritation)); abdomen not distended Percussion/Palpation: abdomen soft; abdomen nontender Results & Data Vital Signs (Past 12 Hours) Vital Signs Temp Pulse Pulse Resp BP BP Pulse Ox 08/16/23 06:41 72 108/64 08/16/23 06:26 83 118/69 08/16/23 02:52 98.1 F 91 H 20 117/71 94 08/16/23 00:43 98.2 F 79 18 113/65 95 08/16/23 00:37 82 108/66 08/16/23 00:22 92 H 117/66 08/16/23 00:00 90 08/15/23 23:55 91 H 110/65 08/15/23 23:05 97.9 F 95 H 18 115/64 96 08/15/23 20:52 O2 Del Method O2 Flow Rate 08/16/23 06:41 08/16/23 06:26 08/16/23 02:52 Room Air 08/16/23 00:43 Room Air 08/16/23 00:37 08/16/23 00:22 08/16/23 00:00 08/15/23 23:55 08/15/23 23:05 Room Air 08/15/23 20:52 Room Air, Nasal Cannula 1 PG Care Time/CCT Total # of Minutes Spent Total Time Spent with Patient: Total time spent is greater than 50% in coordination of care (as documented) at patient's floor/unit and/or counseling patient: Coding Level of Care Code 46870 Post Operative Follow-Up Diagnoses 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
--- NOTE | 2023-08-16 10:02 | Fluoroscopy Report ---
FL video swallow HISTORY: r/o aspiration TECHNIQUE: Video fluoroscopic evaluation of swallowing was performed in the AP and lateral projection s by the speech pathology staff. The patient is fed nectar-thick and thin liquid barium, a barium coa clive wafer, and barium pudding. FLUOROSCOPY TIME: 1 minute and 6 seconds. Ka,r: 7.6 mGy COMPARISON STUDY: None. FINDINGS: There is normal hyoid excursion and epiglottic deflection. Multiple tongue and soft palate fasciculations with premature spillover. This results in a few episodes of penetration. No aspiration identified during the examination. IMPRESSION: 1. No aspiration identified. 2. Please see the speech pathologist report for detailed findings and recommendations. ACT 112: Negative or not required by law. Electronically signed by: Emir Velazquez M.D. 08/16/2023 10:01 AM
--- NOTE | 2023-08-16 12:16 | Hospitalist Progress Note ---
Date of Service August 16, 2023 Assessment & Plan (1) History of DVT (deep vein thrombosis): Plan: Now with new acute DVT on both lower extremities, And possibly PE, given recent hypoxemia and worsening arrhythmias. Started on heparin infusion Will monitor for bleeding, Explained to patient and family that the risk of from PE is higher than the risk of from bleeding, hence the decision to start heparin in spite of his bleeding risk Transition to PO anticoagulant when fully back to oral feeds, he just started full liquid (2) Intra-abdominal abscess: Plan: Repeat CT abdomen and pelvis showed a 7 cm loculated fluid collection in the right lower quadrant suspicious for an abscess. However per general surgery there was no adequate window for percutaneous drainage. Continue IV antibiotics. 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 Although unable to confirm PE because patient is too unstable to go for CT angio. However we will continue full anticoagulation on heparin. Now on Amiodarone infusion Transition to PO anticoagulation when able to take by mouth, Cardiology on consult, appreciate recs (4) Enterocutaneous fistula: Plan: Enterocutaneous fistula: He had lap liv and repair of enterotomies with small bowel resection NG tube has been removed Tolerating small amounts of full liquid diet (5) Status post laparotomy: Plan: Initially patient was thought to have acute cholecystitis. Went to the OR for laparoscopic cholecystectomy was converted to exploratory laparotomy, bowel resection. 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 Wound appears clean and healing well Wound VAC in place NG tube has been removed PICC line in place TPN was started 08/03 as the patient for nutritional support, will continue until oral intake is adequate Continue wound care (6) Cholecystitis: Plan: Status post gallbladder removal Gallbladder fluid grew Klebsiella and Clostridium perfringens Currently on IV Unasyn, will need abx for 4-6 weeks in view of persistent abd abscess (7) Gastroesophageal reflux disease: Plan: Was on famotidine on admisison, now on IV Protonix (8) History of intestinal obstruction: Plan: History of small bowel obstruction in the past (9) Malnutrition: Plan: Continue TPN, now tolerating full liquid diet after swallow eval (10) Physical deconditioning: Plan: Physically deconditioned Continue PT (11) Endotracheally intubated: Plan: Extubated 07/31 On room air now (12) Shock: Plan: resolved (13) Hypernatremia: Plan: Resolved Plan VTE Prophylaxis: Was on heparin 3 times daily, when noted coffee ground from drain and heparin placed on hold (08/04), will order SCD Diet - full liquid Admission and Anticipated Discharge Date Admission Date: July 29, 2023 Subjective patient seen and examined, lying quietly in bed, in good spirits Review of Systems Review of Systems: All systems reviewed are negative, apart from the ones contained in the history. Physical Exam Physical Exam: The patient is awake, alert and oriented 3, well developed and well nourished, normocephalic and atraumatic, lying in bed and in no acute distress. HEENT--PERRL, EOMI, mucous membranes and oropharynx mildly dry Neck--supple. No JVD. No bruits. Thyroid normal, trachea midline, no adenopathy. Heart--normal S1 and S2. No murmurs, rubs or gallops. Lungs--clear bilaterally, no respiratory distress, no accessory muscle use. Abdomen--surgical scar, clean wound. Extremities--no cyanosis or clubbing. No edema. Dermatologic--normal skin turgor, normal color, no abnormal lymph nodes, no rash . Neurologic--cranial nerves II through XII grossly intact. Rheumatologic--normal range of motion. Psychiatric--normal affect. Results & Data Results & Data Vital Signs (Past 12 Hours) Vital Signs Temp Pulse Pulse Resp BP BP Pulse Ox 08/16/23 11:44 71 08/16/23 11:29 89 120/68 08/16/23 11:09 97.5 F L 89 15 120/68 96 08/16/23 10:06 08/16/23 09:23 84 08/16/23 07:29 97.9 F 80 15 124/72 98 08/16/23 06:41 72 108/64 08/16/23 06:26 83 118/69 08/16/23 02:52 98.1 F 91 H 20 117/71 94 08/16/23 00:43 98.2 F 79 18 113/65 95 08/16/23 00:37 82 108/66 08/16/23 00:22 92 H 117/66 O2 Del Method O2 Flow Rate 08/16/23 11:44 08/16/23 11:29 08/16/23 11:09 Room Air 08/16/23 10:06 Room Air 08/16/23 09:23 08/16/23 07:29 Nasal Cannula 1 08/16/23 06:41 08/16/23 06:26 08/16/23 02:52 Room Air 08/16/23 00:43 Room Air 08/16/23 00:37 08/16/23 00:22 PG Care Time/CCT Total # of Minutes Spent Total Time Spent with Patient: Total time spent is greater than 50% in coordination of care (as documented) at patient's floor/unit and/or counseling patient: Coding Level of Care Code 56316 SUB INP/OBS CARE 2/35MIN Diagnoses History of DVT (deep vein thrombosis) Z86.718 Intra-abdominal abscess K65.1 Atrial fibrillation I48.91 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 Status post laparotomy Z98.890 Cholecystitis K81.9 Gastroesophageal reflux disease, unspecified whether esophagitis present K21.9 Esophagitis presence: esophagitis presence not specified History of intestinal obstruction Z87.19 Malnutrition E46 Physical deconditioning R53.81 Endotracheally intubated Z97.8 Shock R57.9 Hypernatremia E87.0 Time Spent (min) 35 (7) Gastroesophageal reflux disease Esophagitis presence: esophagitis presence not specified Qualified Code(s): K21.9 - Gastro-esophageal reflux disease without esophagitis
[2023-08-16] MEDS: CLINOLIPID 20% IV FAT EMULSION 250 ML IV SCH (15:27)
[2023-08-16] MEDS: CENTRAL TPN IV SCH (15:27)
[2023-08-16] MEDS: [UNRECOGNIZED DRUG - OTHER] IV SCH (15:27)
[2023-08-16] MEDS: OPTIRAY 320 125ml IV ONE (19:04)
--- NOTE | 2023-08-16 19:22 | CT Scan Report ---
Exam(s): CTA CHEST IV Amt: 119 ml optiray 320 EXAM: CT Angiography Chest With Intravenous Contrast CLINICAL HISTORY: Reason for exam: PE. TECHNIQUE: Axial computed tomographic angiography images of the chest with intravenous contrast. CTDI is 35.37 mGy and DLP is 1849.35 mGy-cm. Automated exposure control was utilized for the study. A dose lowering technique was utilized adhering to the principles of ALARA. MIP reconstructed images were created and reviewed. COMPARISON: No relevant prior studies available. FINDINGS: Pulmonary arteries: No visualized pulmonary embolism. Dilated pulmonary artery measuring 3.7 cm suggestive of pulmonary arterial hypertension. Aorta: No acute findings. Normal caliber. No dissection. Lungs: Scattered atelectasis within all lobes. No consolidation. No pulmonary infarct. Pleural space: Unremarkable. Heart: Unremarkable. Bones/joints: No acute fracture. Soft tissues: Unremarkable. Lymph nodes: Unremarkable. IMPRESSION: No pulmonary embolism. Electronically signed by: Nicholas Thomson MD 08/16/23 19:22 PM
--- NOTE | 2023-08-16 19:26 | CT Scan Report ---
Exam(s): CT ABDOMEN + PELVIS Without Contrast EXAM: CT Abdomen and Pelvis Without Intravenous Contrast CLINICAL HISTORY: Reason for exam: abd pain. TECHNIQUE: Axial computed tomography images of the abdomen and pelvis without intravenous contrast. CTDI is 27 mGy and DLP is 1138.1 mGy-cm. Automated exposure control was utilized for the study. A dose lowering technique was utilized adhering to the principles of ALARA. COMPARISON: CT abdomen pelvis 08/10/2023 FINDINGS: ABDOMEN: Liver: Unchanged appearance of the low-attenuation lesion within hepatic segment 8 containing central calcifications. Few additional low- attenuation areas including within hepatic segment 3 are also unchanged. Gallbladder and bile ducts: Status post cholecystectomy. Pancreas: Unremarkable. Spleen: Splenosis. Adrenals: Unremarkable. Kidneys and ureters: Cortical cysts within the kidneys. No obstructing stone or hydronephrosis. Stomach and bowel: Colonic diverticulosis without evidence of acute diverticulitis. PELVIS: Appendix: No findings to suggest acute appendicitis. Bladder: Steiner catheter within the bladder. Reproductive: Unremarkable as visualized. ABDOMEN and PELVIS: Intraperitoneal space: Unremarkable. No free air. No significant fluid collection. Bones/joints: No acute fracture. Soft tissues: There is a ventral midline wound which is unchanged. Decreased size of the fluid collection within the right pelvis now measuring 7.0 x 2.7 cm, previously 7.5 x 4.8 cm. This collection appears to communicate with the midline abdominal wall via fistula. Vasculature: Unremarkable. Lymph nodes: Unremarkable. IMPRESSION: There is a ventral midline wound which is unchanged. Decreased size of the fluid collection within the right pelvis now measuring 7.0 x 2.7 cm, previously 7.5 x 4.8 cm. This collection appears to communicate with the midline abdominal wall via fistula. Electronically signed by: Nicholas Thomson MD 08/16/23 19:25 PM
[2023-08-17 06:31] LABS: Hematocrit (blood only) 28.7 % (42.0-52.0); Hemoglobin 9.2 g/dl (14.0-18.0); Mean Corpuscular Hgb Conc 32.1 g/dL (32.0-36.0); Mean Corpuscular Volume 87.2 fL (80.0-100.0); Mean Platelet Volume 11.9 fL (9.4-12.4); Platelet Count 519 K/uL (130-400); RDW Coefficient of Variation 14.9 % (11.5-14.5); RDW Standard Deviation 47.9 fL (36.4-46.3); Red Blood Count 3.29 M/uL (4.70-6.10); White Blood Count 12.16 K/ul (4.8-10.8)
[2023-08-17 06:52] LABS: ANTI-Xa, UFH(UnfractionatedHep 0.47 IU/ml (0.3-0.7)
[2023-08-17 06:56] LABS: Calcium 8.9 mg/dl (8.6-10.3); Est GFR (Non-African American) 84.6 ml/min; Magnesium 1.9 mg/dl (1.7-2.4); Phosphorus 3.5 mg/dl (2.5-4.9); Potassium 3.9 mmol/L (3.5-5.1)
--- NOTE | 2023-08-17 08:47 | Surgery Progress Note ---
Date of Service August 17, 2023 Assessment & Plan (1) Hx laparoscopic cholecystectomy: Plan: pt s/p lap liv and repair of enterotomies with small bowel resection -WBC 12, Hbg 9. Vitals stable -Speech and swallow cleared pt for "easy to chew" diet when surgery okay. no signs of aspiration -Otherwise he was doing well, but had an episode of 10/10 pain after eating last evening. A CT a/p was obtained that revealed decreased size of the fluid collection within the right pelvis that appears to communicate with the midline abdominal wall via fistula -Wound vac was changed with wound care, no significant drainage noted, appears stable to slowly improving -Will allow patient to resume liquid diet again and see how he fairs. Will also start BID bisacodyl to help stimulate bowel function as this may be a cause of his pain overnight -Continue PICC/TPN while we ensure he is able to tolerate oral diet -ID following and appreciate their recs for abx guidance/management -He needs to get OOB ambulating and to chair, PT/OT is also ordered Admission and Anticipated Discharge Date Admission Date: July 29, 2023 Subjective Patient feeling okay this AM. Reported 10/10 abdominal pain after eating last evening, located in the lower abdomen. He received pain medication and feels a bit better today. Feels like maybe he was over-fed yesterday. Denies recent flatus and no BM. No nausea/vomiting. Says he was able to get OOB a bit yesterday. Physical Exam Physical Exam: sleepy, but easily arousable and communicative Respiratory: normal respiratory effort (on room air) Gastrointestinal (Abdomen): Inspection/Auscultation: + abdominal surgical incision Percussion/Palpation: abdomen soft; abdomen nontender midline wound evaluated, no drainage, some slough in wound bed Results & Data Vital Signs (Past 12 Hours) Vital Signs Temp Pulse Pulse Resp BP BP Pulse Ox 08/17/23 07:43 97.3 F L 81 17 110/56 L 96 08/17/23 05:07 71 08/17/23 04:51 86 08/17/23 03:25 97.5 F L 84 18 122/69 95 08/17/23 01:00 91 H 08/16/23 23:55 74 08/16/23 23:40 90 141/76 H 08/16/23 22:52 98.2 F 93 H 17 120/68 93 O2 Del Method 08/17/23 07:43 Room Air 08/17/23 05:07 08/17/23 04:51 08/17/23 03:25 Room Air 08/17/23 01:00 08/16/23 23:55 08/16/23 23:40 08/16/23 22:52 Room Air PG Care Time/CCT Total # of Minutes Spent Total Time Spent with Patient: Total time spent is greater than 50% in coordination of care (as documented) at patient's floor/unit and/or counseling patient: Coding Level of Care Code 28764 Post Operative Follow-Up Diagnoses Hx laparoscopic cholecystectomy Z90.49
--- NOTE | 2023-08-17 08:50 | Surgery Progress Note ---
Date of Service August 17, 2023 Assessment & Plan (1) Hx laparoscopic cholecystectomy: Plan: ct reviewed. abcess smaller. wbc now 12,000.... appears to have a large stool burgen in rectosigmoid. will start suppositories. stay on full liquids for now. cont TPN until better PO intake. continue PT. Admission and Anticipated Discharge Date Admission Date: July 29, 2023 Subjective pt seen. the pain he was having last night has resolved. currently feeling well. leon full liquids. no n/v. Physical Exam Physical Exam: awake/alert. nad abd: wound vac removed with Cesia. wound bed with nice pink granulation. no necrotic tissue. less slough than earlier in week. no evidence of bile in wound bed. Results & Data Vital Signs (Past 12 Hours) Vital Signs Temp Pulse Pulse Resp BP BP Pulse Ox 08/17/23 07:43 36.3 C L 81 17 110/56 L 96 08/17/23 05:07 71 08/17/23 04:51 86 08/17/23 03:25 36.4 C L 84 18 122/69 95 08/17/23 01:00 91 H 08/16/23 23:55 74 08/16/23 23:40 90 141/76 H 08/16/23 22:52 36.8 C 93 H 17 120/68 93 O2 Del Method 08/17/23 07:43 Room Air 08/17/23 05:07 08/17/23 04:51 08/17/23 03:25 Room Air 08/17/23 01:00 08/16/23 23:55 08/16/23 23:40 08/16/23 22:52 Room Air PG Care Time/CCT Total # of Minutes Spent Total Time Spent with Patient: Total time spent is greater than 50% in coordination of care (as documented) at patient's floor/unit and/or counseling patient: Coding Level of Care Code 60620 Post Operative Follow-Up Diagnoses Hx laparoscopic cholecystectomy Z90.49
[2023-08-17] MEDS: bisacodyL 10 MG SUPP PR SCH (09:37)
--- NOTE | 2023-08-17 12:29 | Hospitalist Progress Note ---
Date of Service August 17, 2023 Assessment & Plan (1) History of DVT (deep vein thrombosis): Plan: Now with new acute DVT on both lower extremities, And possibly PE, given recent hypoxemia and worsening arrhythmias. Started on heparin infusion Will monitor for bleeding, Explained to patient and family that the risk of from PE is higher than the risk of from bleeding, hence the decision to start heparin in spite of his bleeding risk Transition to PO anticoagulant when fully back to oral feeds, he just started full liquid (2) Intra-abdominal abscess: Plan: Repeat CT abdomen and pelvis showed a 7 cm loculated fluid collection in the right lower quadrant suspicious for an abscess. Another CT done yesterday 08/16/2023 showed improving abscess. However per general surgery there was no adequate window for percutaneous drainage. Continue IV antibiotics. 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 Although unable to confirm PE because patient is too unstable to go for CT angio. However we will continue full anticoagulation on heparin. Now on Amiodarone infusion Transition to PO anticoagulation when able to take by mouth, Cardiology on consult, appreciate recs (4) Enterocutaneous fistula: Plan: Enterocutaneous fistula: He had lap liv and repair of enterotomies with small bowel resection NG tube has been removed Tolerating small amounts of full liquid diet CT scan of the abdomen done yesterday 08/16/2023 showed persistent fistula however wound VAC was changed again with little drainage. (5) Status post laparotomy: Plan: Initially patient was thought to have acute cholecystitis. Went to the OR for laparoscopic cholecystectomy was converted to exploratory laparotomy, bowel resection. 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 Wound appears clean and healing well Wound VAC in place NG tube has been removed PICC line in place TPN was started 08/03 as the patient for nutritional support, will continue until oral intake is adequate Continue wound care (6) Cholecystitis: Plan: Status post gallbladder removal Gallbladder fluid grew Klebsiella and Clostridium perfringens Currently on IV Unasyn, will need abx for 4-6 weeks in view of persistent abd abscess (7) Gastroesophageal reflux disease: Plan: Was on famotidine on admisison, now on IV Protonix (8) History of intestinal obstruction: Plan: History of small bowel obstruction in the past (9) Malnutrition: Plan: Continue TPN, now tolerating full liquid diet after swallow eval (10) Physical deconditioning: Plan: Physically deconditioned Continue PT (11) Endotracheally intubated: Plan: Extubated 07/31 On room air now (12) Shock: Plan: resolved (13) Hypernatremia: Plan: Resolved Plan VTE Prophylaxis: Was on heparin 3 times daily, when noted coffee ground from drain and heparin placed on hold (08/04), will order SCD Diet - full liquid Participating in physical therapy, patient will need [facility] facility Admission and Anticipated Discharge Date Admission Date: July 29, 2023 Subjective Patient seen and examined, abdominal pain is now resolved, patient beginning to tolerate clear liquid diet again Review of Systems Review of Systems: All systems reviewed are negative, apart from the ones contained in the history. Physical Exam Physical Exam: The patient is awake, alert and oriented 3, well developed and well nourished, normocephalic and atraumatic, lying in bed and in no acute distress. HEENT--PERRL, EOMI, mucous membranes and oropharynx mildly dry Neck--supple. No JVD. No bruits. Thyroid normal, trachea midline, no adenopathy. Heart--normal S1 and S2. No murmurs, rubs or gallops. Lungs--clear bilaterally, no respiratory distress, no accessory muscle use. Abdomen--surgical scar, clean wound. Extremities--no cyanosis or clubbing. No edema. Dermatologic--normal skin turgor, normal color, no abnormal lymph nodes, no rash. Neurologic--cranial nerves II through XII grossly intact. Rheumatologic--normal range of motion. Psychiatric--normal affect. Results & Data Results & Data Vital Signs (Past 12 Hours) Vital Signs Temp Pulse Pulse Resp BP BP Pulse Ox 08/17/23 12:00 76 08/17/23 11:32 08/17/23 10:56 87 120/70 08/17/23 10:50 97.5 F L 94 H 17 113/71 95 08/17/23 10:03 87 120/70 08/17/23 07:43 97.3 F L 81 17 110/56 L 96 08/17/23 05:07 71 08/17/23 04:51 86 08/17/23 03:25 97.5 F L 84 18 122/69 95 08/17/23 01:00 91 H O2 Del Method 08/17/23 12:00 08/17/23 11:32 Room Air 08/17/23 10:56 08/17/23 10:50 Room Air 08/17/23 10:03 08/17/23 07:43 Room Air 08/17/23 05:07 08/17/23 04:51 08/17/23 03:25 Room Air 08/17/23 01:00 PG Care Time/CCT Total # of Minutes Spent Total Time Spent with Patient: Total time spent is greater than 50% in coordination of care (as documented) at patient's floor/unit and/or counseling patient: Coding Level of Care Code 05260 SUB INP/OBS CARE 2/35MIN Diagnoses History of DVT (deep vein thrombosis) Z86.718 Intra-abdominal abscess K65.1 Atrial fibrillation I48.91 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 Status post laparotomy Z98.890 Cholecystitis K81.9 Gastroesophageal reflux disease, unspecified whether esophagitis present K21.9 Esophagitis presence: esophagitis presence not specified History of intestinal obstruction Z87.19 Malnutrition E46 Physical deconditioning R53.81 Endotracheally intubated Z97.8 Shock R57.9 Hypernatremia E87.0 Time Spent (min) 35 (7) Gastroesophageal reflux disease Esophagitis presence: esophagitis presence not specified Qualified Code(s): K21.9 - Gastro-esophageal reflux disease without esophagitis
[2023-08-17] MEDS: MoRPHine SULFATE 2 MG/ML CARP IV STA (16:48)
[2023-08-17] MEDS: [UNRECOGNIZED DRUG - OTHER] IV SCH (16:50)
[2023-08-17] MEDS: CENTRAL TPN IV SCH (16:50)
[2023-08-17] MEDS: CLINOLIPID 20% IV FAT EMULSION 250 ML IV SCH (16:54)
[2023-08-17] MEDS: PANTOprazole 40 MG in SYRINGE 0 ML IV SCH (20:57)
[2023-08-17] MEDS: MELATONIN 3 MG TAB PO PRN (23:05)
[2023-08-18 06:08] LABS: Hematocrit (blood only) 26.2 % (42.0-52.0); Hemoglobin 8.6 g/dl (14.0-18.0); Mean Corpuscular Hemoglobin 28.2 pg (25.0-34.0); Mean Corpuscular Hgb Conc 32.8 g/dL (32.0-36.0); Mean Corpuscular Volume 85.9 fL (80.0-100.0); Mean Platelet Volume 11.6 fL (9.4-12.4); Platelet Count 473 K/uL (130-400); RDW Coefficient of Variation 14.7 % (11.5-14.5); Red Blood Count 3.05 M/uL (4.70-6.10); White Blood Count 9.95 K/ul (4.8-10.8)
[2023-08-18 06:09] LABS: BUN Creatinine Ratio 41.8 (10-20); Calcium 8.4 mg/dl (8.6-10.3); Creatinine Clr Calc Pharmacy 94.8 ml/min; Est GFR (African American) 101.5 ml/min; Est GFR (Non-African American) 87.6 ml/min; Magnesium 1.9 mg/dl (1.7-2.4); Phosphorus 3.5 mg/dl (2.5-4.9); Potassium 4.2 mmol/L (3.5-5.1)
[2023-08-18 06:36] LABS: ANTI-Xa, UFH(UnfractionatedHep < 0.10 IU/ml (0.3-0.7)
--- NOTE | 2023-08-18 08:06 | Surgery Progress Note ---
Date of Service August 18, 2023 Assessment & Plan (1) Hx laparoscopic cholecystectomy: Plan: doing well. will advance diet anemia/heme + stool however PATIENT CANNOT HAVE UPPER OR LOWER ENDOSCOPY.....will alert GI. agree with holding heparin. likely secondary to hemorrhagic gastritis from prolonged ngt cont PT/OT. Admission and Anticipated Discharge Date Admission Date: July 29, 2023 Subjective pt seen. looks /feels well. +bm's. no further lower abdominal pain. leon full liquids. Physical Exam Physical Exam: alert. nad abd: wound vac in place. minimal output. no bile. Results & Data Vital Signs (Past 12 Hours) Vital Signs Temp Pulse Pulse Resp BP BP Pulse Ox 08/18/23 07:20 36.5 C 81 17 116/65 99 08/18/23 05:55 72 105/65 08/18/23 05:38 88 114/68 08/18/23 02:39 36.5 C 87 18 120/67 97 08/18/23 00:34 81 118/61 08/18/23 00:17 92 H 121/71 08/17/23 23:11 36.8 C 92 H 18 121/71 95 08/17/23 22:00 89 O2 Del Method O2 Flow Rate 08/18/23 07:20 Nasal Cannula 2 08/18/23 05:55 08/18/23 05:38 08/18/23 02:39 Nasal Cannula 2.0 08/18/23 00:34 08/18/23 00:17 08/17/23 23:11 Room Air 08/17/23 22:00 PG Care Time/CCT Total # of Minutes Spent Total Time Spent with Patient: Total time spent is greater than 50% in coordination of care (as documented) at patient's floor/unit and/or counseling patient: Coding Level of Care Code 90166 Post Operative Follow-Up Diagnoses Hx laparoscopic cholecystectomy Z90.49
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
--- NOTE | 2023-08-18 10:08 | Pharmacy Report ---
Pharmacy PN Follow-up Note - Date of Service August 18, 2023 - Subjective Patient is currently on day #15 of TPN. 83 year old male with a complicated hospital stay as he was admitted with abdominal pain 5/3 and underwent a lap cholecystectomy that was converted to exploratory laparoscopy and had gangrenous gallbladder and needed small bowel resection. Intraabdominal abscess, continues on IV Unasyn for 4-6 weeks per ID consult. Patient with dark stool yesterday, GI eval today. Possible PE, on Heparin drip, maintaining sinus rhythm on amiodarone IV, can convert to PO when he's able to take oral. - Objective Height & Weight (Last Documented) Height 5 ft 9 in Weight 98.4 kg Diet Order(s) 08/17/23 Breakfast Diet Intake & Ouput (24hrs) 08/17/23 08/18/23 08/19/23 06:59 06:59 06:59 Intake Total 2869.995 / 3221.697 3707.920 / 3707.920 86.005 / 86.005 Output Total 1850 / 1850 2376 / 2376 600 / 600 Balance 1019.995 / 7877.883 8134.920 / 1331.920 -513.995 / -513.995 Selected Laboratory Results 08/18/23 05:27 Sodium 132 L Potassium 4.2 Chloride 101 Carbon Dioxide 28 Anion Gap 3 BUN 28 H Creatinine 0.67 Est GFR ( Amer) 101.5 Est GFR (Non-Af Amer) 87.6 BUN/Creatinine Ratio 41.8 H Glucose 129 H Calcium 8.4 L Phosphorus 3.5 Magnesium 1.9 - Assessment & Plan Assessment: * Patient starting clear liquid diet past 2 days. * Repeat Triglycerides 96mg/dl, continue daily lipids at this time. * Continue electrolytes and monitor. * Renal function stable. * Continuing TPN per hospitalist service. Plan: * For Day #15 of TPN administration, the following will be ordered: * Macronutrients: * Amino Acids: 144 grams/day * Dextrose: 252 grams/day * Lipids: 50 grams/day * Micronutrients: * Sodium Chloride: 40mEq/day * Sodium phosphate: 20 mMol/day * Potassium acetate: 50 mEq/day * Potassium phosphate: 60 mMol/day * Magnesium sulfate: 8.12 mEq/day * Multivitamins: 10 mL/day * Trace elements: 1 mL/day * Thiamine: 100 mg/day * Folic Acid: 1 mg/day * Total volume of 1882 ml will be infused over 24 hours and will provide 1933 kcal/day * Labs will be ordered per PN protocol. * Pharmacy will follow and adjust PN orders on a daily basis. Thank you!
--- NOTE | 2023-08-18 11:48 | Hospitalist Progress Note ---
Date of Service August 18, 2023 Assessment & Plan (1) History of DVT (deep vein thrombosis): Plan: Now with new acute DVT on both lower extremities, And possibly PE, given recent hypoxemia and worsening arrhythmias. Initially Started on heparin infusion, but now on hold on account of GI bleed (2) Intra-abdominal abscess: Plan: Repeat CT abdomen and pelvis showed a 7 cm loculated fluid collection in the right lower quadrant suspicious for an abscess. Another CT done 08/16/2023 showed improving abscess. However per general surgery there was no adequate window for percutaneous drainage. Continue IV antibiotics. 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 Although unable to confirm PE because patient is too unstable to go for CT angio. Heparin on hold on account of GI bleed Transition Amio and metoprolol to oral (4) Enterocutaneous fistula: Plan: Enterocutaneous fistula: He had lap liv and repair of enterotomies with small bowel resection NG tube has been removed Tolerating small amounts of full liquid diet CT scan of the abdomen done 08/16/2023 showed persistent fistula however wound VAC was changed again with little drainage. (5) Status post laparotomy: Plan: Initially patient was thought to have acute cholecystitis. Went to the OR for laparoscopic cholecystectomy was converted to exploratory laparotomy, bowel resection. 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 Wound appears clean and healing well Wound VAC in place NG tube has been removed PICC line in place TPN was started 08/03 as the patient for nutritional support, will continue until oral intake is adequate Continue wound care (6) GI bleed: Plan: Has been having dark tarry stools. Most likely GI bleed from possible gastritis given long NG tube status Will hold heparin for now No indication for EGD or colonoscopy given recent abdominal surgery. Continue to monitor (7) Cholecystitis: Plan: Status post gallbladder removal Gallbladder fluid grew Klebsiella and Clostridium perfringens Currently on IV Unasyn, will need abx for 4-6 weeks in view of persistent abd abscess (8) Gastroesophageal reflux disease: Plan: Was on famotidine on admisison, now on IV Protonix (9) History of intestinal obstruction: Plan: History of small bowel obstruction in the past (10) Malnutrition: Plan: Continue TPN, now tolerating full liquid diet after swallow eval (11) Physical deconditioning: Plan: Physically deconditioned Continue PT (12) Endotracheally intubated: Plan: Extubated 5/6 On room air now (13) Shock: Plan: resolved (14) Hypernatremia: Plan: Resolved (15) Acute blood loss anemia: Plan: From GI loss Transfuse if hemoglobin drops below 7 Plan VTE Prophylaxis: scd Diet - full liquid Participating in physical therapy, patient will need [facility] facility Admission and Anticipated Discharge Date Admission Date: July 29, 2023 Subjective Patient seen and examined, denies shortness of breath, tolerating liquid diet. Review of Systems Review of Systems: All systems reviewed are negative, apart from the ones contained in the history. Physical Exam Physical Exam: The patient is awake, alert and oriented 3, well developed and well nourished, normocephalic and atraumatic, lying in bed and in no acute distress. HEENT--PERRL, EOMI, mucous membranes and oropharynx mildly dry Neck--supple. No JVD. No bruits. Thyroid normal, trachea midline, no adenopathy. Heart--normal S1 and S2. No murmurs, rubs or gallops. Lungs--clear bilaterally, no respiratory distress, no accessory muscle use. Abdomen--surgical scar, clean wound. Extremities--no cyanosis or clubbing. No edema. Dermatologic--normal skin turgor, normal color, no abnormal lymph nodes, no rash. Neurologic--cranial nerves II through XII grossly intact. Rheumatologic--normal range of motion. Psychiatric--normal affect. Results & Data Results & Data Vital Signs (Past 12 Hours) Vital Signs Temp Pulse Pulse Resp BP BP Pulse Ox 08/18/23 10:49 97.7 F 93 H 17 163/72 H 97 08/18/23 07:20 97.7 F 81 17 116/65 99 08/18/23 05:55 72 105/65 08/18/23 05:38 88 114/68 08/18/23 02:39 97.7 F 87 18 120/67 97 08/18/23 00:34 81 118/61 08/18/23 00:17 92 H 121/71 O2 Del Method O2 Flow Rate 08/18/23 10:49 Room Air 08/18/23 07:20 Nasal Cannula 2 08/18/23 05:55 08/18/23 05:38 08/18/23 02:39 Nasal Cannula 2.0 08/18/23 00:34 08/18/23 00:17 PG Care Time/CCT Total # of Minutes Spent Total Time Spent with Patient: Total time spent is greater than 50% in coordination of care (as documented) at patient's floor/unit and/or counseling patient: Coding Level of Care Code 65164 SUB INP/OBS CARE 2/35MIN Diagnoses History of DVT (deep vein thrombosis) Z86.718 Intra-abdominal abscess K65.1 Atrial fibrillation I48.91 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 Status post laparotomy Z98.890 GI bleed K92.2 Cholecystitis K81.9 Gastroesophageal reflux disease, unspecified whether esophagitis present K21.9 Esophagitis presence: esophagitis presence not specified History of intestinal obstruction Z87.19 Malnutrition E46 Physical deconditioning R53.81 Endotracheally intubated Z97.8 Shock R57.9 Hypernatremia E87.0 Acute blood loss anemia D62 Time Spent (min) 35 (8) Gastroesophageal reflux disease Esophagitis presence: esophagitis presence not specified Qualified Code(s): K21.9 - Gastro-esophageal reflux disease without esophagitis
[2023-08-18] MEDS: CLINOLIPID 20% IV FAT EMULSION 250 ML IV SCH (16:50)
[2023-08-18] MEDS: [UNRECOGNIZED DRUG - OTHER] IV SCH (16:51)
[2023-08-18] MEDS: CENTRAL TPN IV SCH (16:51)
[2023-08-19] MEDS: hydrOXYzine HCl 25 MG TAB PO STA (02:46)
[2023-08-19 05:57] LABS: Hematocrit (blood only) 25.6 % (42.0-52.0); Hemoglobin 8.5 g/dl (14.0-18.0); Mean Corpuscular Hemoglobin 28.5 pg (25.0-34.0); Mean Corpuscular Hgb Conc 33.2 g/dL (32.0-36.0); Mean Corpuscular Volume 85.9 fL (80.0-100.0); Mean Platelet Volume 11.5 fL (9.4-12.4); Platelet Count 450 K/uL (130-400); RDW Coefficient of Variation 14.9 % (11.5-14.5); RDW Standard Deviation 46.3 fL (36.4-46.3); Red Blood Count 2.98 M/uL (4.70-6.10); White Blood Count 11.71 K/ul (4.8-10.8)
[2023-08-19 06:12] LABS: BUN Creatinine Ratio 40.5 (10-20); Calcium 8.4 mg/dl (8.6-10.3); Creatinine Clr Calc Pharmacy 84.4 ml/min; Est GFR (African American) 97.5 ml/min; Est GFR (Non-African American) 84.1 ml/min; Magnesium 1.9 mg/dl (1.7-2.4); Phosphorus 3.6 mg/dl (2.5-4.9); Potassium 4.5 mmol/L (3.5-5.1)
--- NOTE | 2023-08-19 07:58 | Surgery Progress Note ---
Date of Service August 19, 2023 Assessment & Plan (1) Enterocutaneous fistula: Plan: Diet advanced to low fiber/easy to chew yesterday tolerating well Passing flatus and +BMs anemia/heme + stool however PATIENT CANNOT HAVE UPPER OR LOWER ENDOSCOPY, GI aware H/H 8.5 (8.6) Heparin was placed on hold WBC have some elevation at 11 from 9.9 yesterday VSS Continue IV Abx, Wound Vac, diet, PT/OT , OOB as above. doing great clinically. leon diet. OK to stop TPN soon from my standpoint cont wound vac aggressive PT/OT H/H currently stable. Admission and Anticipated Discharge Date Admission Date: July 29, 2023 Subjective Pt denies N/V , abd pain tolerating low fiber diet reports +flatus Review of Systems Constitutional: no chills Respiratory: no dyspnea Cardiovascular: no chest pain Gastrointestinal: no abdominal pain, no nausea and no vomiting Integumentary: + wounds abd post op incisional , vac on Physical Exam Physical Exam: alert oriented Constitutional: cooperative and comfortable; no acute distress Respiratory: normal respiratory effort and able to speak in complete sentences; no respiratory distress Gastrointestinal (Abdomen): Inspection/Auscultation: + abdomen distended, + abdominal surgical incision (see wound pictures ) and + abdominal surgical drain present Percussion/Palpation: + abdomen tender and abdomen soft Psychiatric: Orientation: alert and oriented x 3 Results & Data Vital Signs (Past 12 Hours) Vital Signs Temp Pulse Pulse Resp BP Pulse Ox O2 Del Method 08/19/23 07:18 97.5 F L 96 H 19 114/69 99 Nasal Cannula 08/19/23 03:14 97.5 F L 97 H 20 130/74 94 Room Air 08/18/23 23:18 97.7 F 100 H 18 125/67 97 Room Air 08/18/23 22:01 102 H 08/18/23 20:00 Room Air O2 Flow Rate 08/19/23 07:18 2 08/19/23 03:14 08/18/23 23:18 08/18/23 22:01 08/18/23 20:00 PG Care Time/CCT Total # of Minutes Spent Total Time Spent with Patient: Total time spent is greater than 50% in coordination of care (as documented) at patient's floor/unit and/or counseling patient: Coding Level of Care Code 48250 Post Operative Follow-Up Diagnoses 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
[2023-08-19] MEDS: METOPROLOL SUCC 50MG EXT REL TAB PO SCH (08:10)
[2023-08-19] MEDS: AMIODARONE 200 MG TAB PO SCH (09:15)
--- NOTE | 2023-08-19 10:33 | Hospitalist Progress Note ---
Date of Service August 19, 2023 Assessment & Plan (1) History of DVT (deep vein thrombosis): Plan: Now with new acute DVT on both lower extremities, And possibly PE, given recent hypoxemia and worsening arrhythmias. Initially Started on heparin infusion, but now on hold on account of GI bleed (2) Intra-abdominal abscess: Plan: Repeat CT abdomen and pelvis showed a 7 cm loculated fluid collection in the right lower quadrant suspicious for an abscess. Another CT done 08/16/2023 showed improving abscess. However per general surgery there was no adequate window for percutaneous drainage. Continue IV antibiotics. 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 Although unable to confirm PE because patient is too unstable to go for CT angio. Heparin on hold on account of GI bleed Transition Amio and metoprolol to oral (4) Enterocutaneous fistula: Plan: Enterocutaneous fistula: He had lap liv and repair of enterotomies with small bowel resection NG tube has been removed Tolerating small amounts of full liquid diet CT scan of the abdomen done 08/16/2023 showed persistent fistula however wound VAC was changed again with little drainage. (5) Status post laparotomy: Plan: Initially patient was thought to have acute cholecystitis. Went to the OR for laparoscopic cholecystectomy was converted to exploratory laparotomy, bowel resection. 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 Wound appears clean and healing well Wound VAC in place NG tube has been removed PICC line in place TPN was started 08/03 as the patient for nutritional support, will continue until oral intake is adequate Continue wound care (6) GI bleed: Plan: Has been having dark tarry stools. Most likely GI bleed from possible gastritis given long NG tube status Will hold heparin for now No indication for EGD or colonoscopy given recent abdominal surgery. Continue to monitor (7) Cholecystitis: Plan: Status post gallbladder removal Gallbladder fluid grew Klebsiella and Clostridium perfringens Currently on IV Unasyn, will need abx for 4-6 weeks in view of persistent abd abscess (8) Gastroesophageal reflux disease: Plan: Was on famotidine on admisison, now on IV Protonix (9) History of intestinal obstruction: Plan: History of small bowel obstruction in the past (10) Malnutrition: Plan: TPN has been discontinued after 16 days, now tolerating full liquid diet after swallow eval (11) Physical deconditioning: Plan: Physically deconditioned Continue PT (12) Endotracheally intubated: Plan: Extubated 5/6 On room air now (13) Shock: Plan: resolved (14) Hypernatremia: Plan: Resolved (15) Acute blood loss anemia: Plan: From GI loss Transfuse if hemoglobin drops below 7 Plan VTE Prophylaxis: scd Diet - full liquid Participating in physical therapy, patient will need long-term facility Admission and Anticipated Discharge Date Admission Date: July 29, 2023 Subjective patient seen and examined, tolerating diet, participating in PT Review of Systems Review of Systems: All systems reviewed are negative, apart from the ones contained in the history. Physical Exam Physical Exam: The patient is awake, alert and oriented 3, well developed and well nourished, normocephalic and atraumatic, lying in bed and in no acute distress. HEENT--PERRL, EOMI, mucous membranes and oropharynx mildly dry Neck--supple. No JVD. No bruits. Thyroid normal, trachea midline, no adenopathy. Heart--normal S1 and S2. No murmurs, rubs or gallops. Lungs--clear bilaterally, no respiratory distress, no accessory muscle use. Abdomen--surgical scar, clean wound. Extremities--no cyanosis or clubbing. Trace leg edema. Dermatologic--normal skin turgor, normal color, no abnormal lymph nodes, no rash. Neurologic--cranial nerves II through XII grossly intact. Rheumatologic--normal range of motion. Psychiatric--normal affect. Results & Data Results & Data Vital Signs (Past 12 Hours) Vital Signs Temp Pulse Pulse Resp BP Pulse Ox O2 Del Method 08/19/23 08:00 95 H 08/19/23 08:00 Room Air 08/19/23 07:18 97.5 F L 96 H 19 114/69 99 Nasal Cannula 08/19/23 03:14 97.5 F L 97 H 20 130/74 94 Room Air 08/18/23 23:18 97.7 F 100 H 18 125/67 97 Room Air O2 Flow Rate 05/24/24 08:00 08/19/23 08:00 08/19/23 07:18 2 08/19/23 03:14 08/18/23 23:18 PG Care Time/CCT Total # of Minutes Spent Total Time Spent with Patient: Total time spent is greater than 50% in coordination of care (as documented) at patient's floor/unit and/or counseling patient: Coding Level of Care Code 35403 SUB INP/OBS CARE 2/35MIN Diagnoses History of DVT (deep vein thrombosis) Z86.718 Intra-abdominal abscess K65.1 Atrial fibrillation I48.91 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 Status post laparotomy Z98.890 GI bleed K92.2 Cholecystitis K81.9 Gastroesophageal reflux disease, unspecified whether esophagitis present K21.9 Esophagitis presence: esophagitis presence not specified History of intestinal obstruction Z87.19 Malnutrition E46 Physical deconditioning R53.81 Endotracheally intubated Z97.8 Shock R57.9 Hypernatremia E87.0 Acute blood loss anemia D62 Time Spent (min) 35 (8) Gastroesophageal reflux disease Esophagitis presence: esophagitis presence not specified Qualified Code(s): K21.9 - Gastro-esophageal reflux disease without esophagitis
[2023-08-19] MEDS: FERROUS SULFATE 325 MG TAB PO SCH (15:58)
[2023-08-19] MEDS: ACETAMINOPHEN 1,000 MG/100 ML VIAL IV STA (21:59)
--- NOTE | 2023-08-19 22:11 | Communication Note ---
Date of Service: August 19, 2023 Notified patient newly febrile 38.5C, diaphoretic, slightly tachycardic at 99 BPM. BP 129/69. Given Tylenol 1000 mg IV x 1. Ordered CXR, EKG, CT A&P, MRSA na res, procal, CRP, UA with reflex, CBC, CMP, and blood cultures. Patient clinically stable. Would have low threshold to broaden to vanc/zosyn if patient becomes hemodynamically unstable. Chart review - revealing for cholecystitis s/p cholecystectomy complicated by formation of intraabdominal abscess and septic shock. Gallbladder fluid growing pansensitive klebsiella and clostridium perfringens. Patient was critically ill and on broad spectrum antibiotics, as he improved clinically he was stable for deescalation of care. ID, GI, Surg all on board. ID recommended changing from flagyl, cefepime, caspofungin to Unasyn x 6 weeks - last progress note 08/11. Plan was to transition to PO Augmentin at some point. Patient does have wound vac in place. Abscess improving radiologically 08/15 - no indication for IR drainage at that time. Hospital course also complicated by new DVT with ?PE. Was started on heparin gtt - since held due to GI bleeding. Not currently on anticoagulation. Case discussed with Dr. Brennan. Will continue to monitor. Resident Activity Tracking Resident Involvement: Resident Care Provided and Texture Artist Coverage Note Care Provided: Adult Hospital Medicine
[2023-08-19 22:36] LABS: Basophils # (auto) 0.05 K/uL (0.00-0.20); Basophils % (auto) 0.3 %; Eosinophils # (auto) 0.24 K/uL (0.00-0.50); Eosinophils % (auto) 1.6 %; Hematocrit (blood only) 30.5 % (42.0-52.0); Immature Granulocytes # (auto) 0.07 K/uL (0.01-0.20); Immature Granulocytes % (auto) 0.5 %; Lymphocytes % (auto) 8.7 %; Mean Corpuscular Hemoglobin 28.1 pg (25.0-34.0); Mean Corpuscular Hgb Conc 32.8 g/dL (32.0-36.0); Mean Corpuscular Volume 85.7 fL (80.0-100.0); Mean Platelet Volume 11.3 fL (9.4-12.4); Monocytes # (auto) 1.44 K/uL (0.11-0.59); Monocytes % (auto) 9.6 %; Neutrophils # (auto) 11.83 K/uL (1.40-6.50); Neutrophils % (auto) 79.3 %; Platelet Count 484 K/uL (130-400); RDW Coefficient of Variation 14.8 % (11.5-14.5); RDW Standard Deviation 45.6 fL (36.4-46.3); Red Blood Count 3.56 M/uL (4.70-6.10); White Blood Count 14.93 K/ul (4.8-10.8)
[2023-08-19 22:48] LABS: Albumin Globulin Ratio 0.8 (0.9-2); Albumin Level 2.9 gm/dl (3.4-5.0); BUN Creatinine Ratio 26.5 (10-20); Bilirubin,Total 0.8 mg/dl (0.2-1.0); C Reactive Protein 11.93 mg/dl (0-0.5); Calcium 9.5 mg/dl (8.6-10.3); Creatinine Clr Calc Pharmacy 61.8 ml/min; Est GFR (African American) 77.3 ml/min; Est GFR (Non-African American) 66.7 ml/min; Globulin 3.7 gm/dl (2.5-4.0); Potassium 4.9 mmol/L (3.5-5.1); Total Protein 6.6 gm/dl (6.0-8.3)
[2023-08-20] MEDS: ALUMINUM/MAGNESIUM SUSP 30 ML UDC PO PRN (00:34)
--- NOTE | 2023-08-20 06:58 | Surgery Progress Note ---
Date of Service August 20, 2023 Assessment & Plan (1) Hx laparoscopic cholecystectomy: Plan: Patient is status post laparoscopic cholecystectomy with conversion to exploratory laparotomy and small bowel resection on 07/30/2023 (postoperative day #21) Due to the patient's febrile episode last night nursing staff did notify the medical service. The patient did have a chest x-ray that showed bilateral pleural effusions. A CT scan of the abdomen pelvis has been ordered which is pending. Urinalysis and blood culture has also been ordered. Blood cultures have been ordered which are pending. Repeat labs last evening during febrile episode demonstrated a leukocytosis of 14.9. Patient is currently receiving antibiotics in the form of Unasyn which was recommended by ID. Will continue these antibiotics with alterations made based on pending evaluation Labs last evening did not demonstrate any drop in patient's hemoglobin and hematocrit Additional recommendations be forthcoming based on pending imaging and labs as noted above. Pending patient's clinical course today mobilization attempts should continue Admission and Anticipated Discharge Date Admission Date: July 29, 2023 Supervising Physician Co-Signing Physician Notes pnt S&E, agree w/ above. s/p ex lap, cholecystectomy and significant ANGELICA w/ enterotomy repairs. Was on diet, had fever to 38.5 overnight. Has nausea, globus sensation, trouble breathing. abd w/ wound vac in place, soft, appropriately ttp. CXR w/ reactive pleural effusions. wbc stable at 14, but up from [address] pending. Will make npo, f/u CT results. Very high risk for any additional surgical intervention. Subjective Patient is currently resting comfortably in bed. At the present time he denies any nausea or vomiting. He also denies any abdominal pain I discussed with the erp project manager nurse attending to the patient and she notes that patient had febrile episode last night and he also had some episodes of nausea and vomiting. She notes that the nausea and vomiting resolved after patient was administered a proton pump inhibitor. She also notes that the fevers have since resolved. No other concerns noted at this time. Physical Exam Respiratory: Patient not using accessory muscles to aid in respiration. Breath sounds are decreased at the bases Gastrointestinal (Abdomen): Abdomen is soft and nondistended with minimal pain to palpation. Wound VAC is in place and appears to be holding suction and working appropriately. Results & Data Vital Signs (Past 12 Hours) Vital Signs Temp Pulse Pulse Resp BP Pulse Ox O2 Del Method 08/20/23 03:44 37.1 C 82 18 124/68 93 Room Air 08/20/23 00:28 Room Air 08/19/23 23:40 99 H 08/19/23 23:24 37.7 C H 97 H 18 120/68 91 Room Air 08/19/23 21:49 38.5 C H 99 H 18 129/69 91 Room Air 08/19/23 21:34 38.5 C H 99 H 18 129/69 91 Room Air 08/19/23 19:49 37.7 C H 97 H 18 120/68 91 Room Air PG Care Time/CCT Total # of Minutes Spent Total Time Spent with Patient: Total time spent is greater than 50% in coordination of care (as documented) at patient's floor/unit and/or counseling patient: Coding Level of Care Code 24619 Post Operative Follow-Up Diagnoses Hx laparoscopic cholecystectomy Z90.49
[2023-08-20 07:31] LABS: Hematocrit (blood only) 30.1 % (42.0-52.0); Hemoglobin 9.6 g/dl (14.0-18.0); Mean Corpuscular Hemoglobin 27.7 pg (25.0-34.0); Mean Corpuscular Hgb Conc 31.9 g/dL (32.0-36.0); Mean Platelet Volume 11.5 fL (9.4-12.4); Platelet Count 446 K/uL (130-400); RDW Coefficient of Variation 14.8 % (11.5-14.5); RDW Standard Deviation 46.9 fL (36.4-46.3); Red Blood Count 3.46 M/uL (4.70-6.10); White Blood Count 14.77 K/ul (4.8-10.8)
[2023-08-20 07:41] LABS: BUN Creatinine Ratio 26.7 (10-20); Calcium 9.4 mg/dl (8.6-10.3); Est GFR (African American) 74.7 ml/min; Est GFR (Non-African American) 64.4 ml/min; Magnesium 2.1 mg/dl (1.7-2.4); Phosphorus 3.8 mg/dl (2.5-4.9); Potassium 4.8 mmol/L (3.5-5.1)
--- NOTE | 2023-08-20 08:23 | XRay Report ---
XR chest 1V portable HISTORY: new oxygen requirement, fever COMPARISON: Chest CTA 08/16/2023. FINDINGS: A right PICC terminates in the SVC. There are suture material within the left upper lobe. N o pneumothorax. Trace bilateral pleural effusions and a few bibasilar linear densities. This favors s ubsegmental atelectasis. The heart remains mildly enlarged. No evidence for pulmonary edema. IMPRESSION: 1. Trace bilateral pleural effusions. 2. Bibasilar linear densities. This favors subsegmental atelectasis. 3. Mild cardiomegaly. ACT 112: Negative or not required by law. Electronically signed by: Emir Velazquez M.D. 08/20/2023 8:21 AM
--- NOTE | 2023-08-20 11:31 | Electrocardiogram Report ---
Test Reason : Blood Pressure : / mmHG Vent. Rate : 099 BPM Atrial Rate : 099 BPM P-R Int : 162 ms QRS Dur : 080 ms QT Int : 336 ms P-R-T Axes : 049 -30 027 degrees QTc Int : 431 ms Normal sinus rhythm Left axis deviation Low voltage QRS Abnormal ECG When compared with ECG of 06-AUG-2023 10:58, Sinus rhythm has replaced Atrial fibrillation Vent. rate has decreased BY 51 BPM Confirmed by Noman Ochoa ([id number]) on 08/20/2023 11:31:14 AM Referred By: REFERRED SELF Confirmed By:Noman cOhoa
[2023-08-20] MEDS: PROMETHAZINE HCL INJ 25 MG/ML 1 ML VIAL IM STA (12:04)
--- NOTE | 2023-08-20 13:39 | CT Scan Report ---
ABDOMEN AND PELVIS CT WITHOUT CONTRAST CT DOSE: 1839.53 mGy.cm HISTORY: new fever, known abscess TECHNIQUE: Multiaxial CT images of the abdomen and pelvis were performed without contrast. A dose lo wering technique was utilized adhering to the principles of ALARA. COMPARISON STUDY: Abdomen and pelvis CT 08/16/2023. FINDINGS: Slight decrease in size in the loculated fluid collection within the right lower quadrant w hich now measures 6.4 x 2.9 cm. Midline abdominal wall incision/wound persists. This contains a few p unctate focus of gas both within the wound and deep to the abdominal wall. This is similar to the carroll or study. Small bowel loops remain matted against the anterior abdominal wall including a site of carroll or small bowel anastomosis. Therefore, these small foci of adjacent gas within the wound raise the po ssibility of an underlying enterocutaneous fistula. Patchy right lower lobe airspace opacities have p rogressed and are concerning for a pneumonia. This could be due to prior aspiration. Mild dependent c hange at the left lung base again noted. There is a left total hip arthroplasty. No acute fractures i dentified. Prior cholecystectomy. The unenhanced adrenal glands are unremarkable. There are few punct ate bilateral renal calculi. Multiple bilateral renal hypodense lesions remain unchanged. These are i ncompletely characterized on this noncontrast study but favor cysts. Lobular appearance to the spleen , unchanged. Scattered hepatic lesions remain stable some which demonstrate central calcification. A few small cystic foci again noted within the pancreas which favor side branch intraductal papillary m ucinous neoplasms. There is additional scattered areas of gas within and adjacent to the left mid abd ominal wall which have progressed. These could represent focal small abscesses versus progression of the enterocutaneous fistulas. There is associated mild fat stranding at this location. These are best seen on image 214. Punctate focus of gas within the bladder is noted. Moderate well-formed stool wit hin the rectum. Colonic diverticulosis. Dilated fluid-filled loops of proximal to mid small bowel wit h an apparent transition point at the anastomosis within the left mid abdomen on image 274. This is c oncerning for a small bowel obstruction. This is new compared the prior study. Normal appendix. Resid ual barium contrast within the colon. Inflammatory change and adjacent pericolonic gas/fluid collecti on within the mid descending colon on image 222. This is likely reactive to the adjacent small abdomi nal wall abscesses/fistulas. A superimposed acute diverticulitis is also considered in the differenti al diagnosis. IMPRESSION: 1. Interval development of a small bowel obstruction with the transition point located within the lef t mid abdomen at the site of small bowel anastomosis as described above. 2. Progressive multiloculated small foci of gas and fluid collections within and deep to the left mid abdominal wall. This is consistent with progressive abscesses/fistulas. 3. Slight increase in size in the right lower quadrant loculated fluid collection. 4. Midline abdominal wall incision/fluid persists which contains a few punctate foci of gas both with in and deep to the wound. This raises the possibility of underlying enterocutaneous fistula. 5. Patchy right lower lobe airspace opacities have progressed and are concerning for a pneumonia. 6. Inflammatory change and adjacent pericolonic gas/fluid collection within the mid descending colon as described above. This is likely reactive to the adjacent small abdominal wall abscesses/fistulas. A superimposed acute diverticulitis is also considered in the differential diagnosis. 7. Additional findings as described above. ACT 112: Negative or not required by law. Electronically signed by: Emir Velazquez M.D. 08/20/2023 1:37 PM
--- NOTE | 2023-08-20 14:18 | Communication Note ---
Date of Service: August 20, 2023 CT personally reviewed and interpreted. Developing partial small bowel obstruction at anastomosis, progression of small abd wall abscesses/fistulas, and possible developing pneumonia. Based on surgical history, patient is a poor surgical candidate. Made patient NPO, if continues to wretch will need NG tube. Recommend broadening of abx to cover pna and fistulas. discussed with hospitalist. Electronically signed by: Emir Velazquez M.D. 08/20/2023 8:21 AM Abdomen/Pelvis CT 08/19/23 22:[address] WITHOUT CONTRAST CT DOSE: 1839.53 mGy.cm HISTORY: new fever, known abscess TECHNIQUE: Multiaxial CT images of the abdomen and pelvis were performed without contrast. A dose lowering technique was utilized adhering to the principles of ALARA. COMPARISON STUDY: Abdomen and pelvis CT 08/16/2023. FINDINGS: Slight decrease in size in the loculated fluid collection within the right lower quadrant which now measures 6.4 x 2.9 cm. Midline abdominal wall incision/wound persists. This contains a few punctate focus of gas both within the wound and deep to the abdominal wall. This is similar to the prior study. Small bowel loops remain matted against the anterior abdominal wall including a site of prior small bowel anastomosis. Therefore, these small foci of adjacent gas within the wound raise the possibility of an underlying enterocutaneous fistula. Patchy right lower lobe airspace opacities have progressed and are concerning for a pneumonia. This could be due to prior aspiration. Mild dependent change at the left lung base again noted. There is a left total hip arthroplasty. No acute fractures identified. Prior cholecystectomy. The unenhanced adrenal glands are unremarkable. There are few punctate bilateral renal calculi. Multiple bilateral renal hypodense lesions remain unchanged. These are incompletely characterized on this noncontrast study but favor cysts. Lobular appearance to the spleen, unchanged. Scattered hepatic lesions remain stable some which demonstrate central calcification. A few small cystic foci again noted within the pancreas which favor side branch intraductal papillary mucinous neoplasms. There is additional scattered areas of gas within and adjacent to the left mid abdominal wall which have progressed. These could represent focal small abscesses versus progression of the enterocutaneous fistulas. There is associated mild fat stranding at this location. These are best seen on image 214. Punctate focus of gas within the bladder is noted. Moderate well-formed stool within the rectum. Colonic diverticulosis. Dilated fluid-filled loops of proximal to mid small bowel with an apparent transition point at the anastomosis within the left mid abdomen on image 274. This is concerning for a small bowel obstruction. This is new compared the prior study. Normal appendix. Residual barium contrast within the colon. Inflammatory change and adjacent pericolonic gas/fluid collection within the mid descending colon on image 222. This is likely reactive to the adjacent small abdominal wall abscesses/fistulas. A superimposed acute diverticulitis is also considered in the differential diagnosis. IMPRESSION: 1. Interval development of a small bowel obstruction with the transition point located within the left mid abdomen at the site of small bowel anastomosis as described above. 2. Progressive multiloculated small foci of gas and fluid collections within and deep to the left mid abdominal wall. This is consistent with progressive abscesses/fistulas. 3. Slight increase in size in the right lower quadrant loculated fluid collection. 4. Midline abdominal wall incision/fluid persists which contains a few punctate foci of gas both within and deep to the wound. This raises the possibility of underlying enterocutaneous fistula. 5. Patchy right lower lobe airspace opacities have progressed and are concerning for a pneumonia. 6. Inflammatory change and adjacent pericolonic gas/fluid collection within the mid descending colon as described above. This is likely reactive to the adjacent small abdominal wall abscesses/fistulas. A superimposed acute diverticulitis is also considered in the differential diagnosis. 7. Additional findings as described above. ACT 112: Negative or not required by law. Electronically signed by: Emir Velazquez M.D. 08/20/2023 1:37 PM
[2023-08-20] MEDS ORDERED: VANCOMYCIN CONSULT ACTIVE PRN (14:25)
[2023-08-20] MEDS ORDERED: VANCOMYCIN HCL 1,500 MG in SODIUM CHLORIDE 0.9% 500 ML IV SCH (14:30)
[2023-08-20] MEDS: PIPER/TAZO 4.5g in D5W MINI-B 100 ML IV ONE (14:49)
--- NOTE | 2023-08-20 15:02 | Pharmacy Report ---
Pharmacy PK ABX Note - Date of Service August 20, 2023 - Assessment and Plan Assessment * 83 year old M who has most recently been receiving Unasyn since 08/09 for IA abscess (per ID - signed off 08/11). S/p lap liv and small bowel resection 07/29. Imaging today noted worsening abscess and possible pneumonia. Therefore broadened to Zosyn and vancomycin. * SCr stable since yesterday, but slightly elevated from baseline. Will continue to monitor daily for now. Plan Vancomycin * Loading dose: 2000mg IV x 1 * Maintenance dose: 1500 mg IV q24h * Regimen is predicted to achieve target AUC/ELY of 400-600 mg/L.hr Pharmacy will continue to follow and will adjust dose/frequency as necessary. Thank you. Pharmacy has transitioned to AUC monitoring for vancomycin. AUC/ELY is the preferred PK/PD target and is associated with decreased risk of nephrotoxicity compared to traditional trough targets.
[2023-08-20] MEDS: VANCOMYCIN HCL 2,000 MG in SODIUM CHLORIDE 0.9% 500 ML IV STA (15:23)
--- NOTE | 2023-08-20 16:14 | Hospitalist Progress Note ---
Date of Service August 20, 2023 Assessment & Plan (1) SBO (small bowel obstruction): Plan: Patient had an episode of vomiting today. CT abdomen shows small bowel obstruction with a transition point located at the site of small bowel anastomosis Patient has been made n.p.o. NG tube will be placed if the patient continues to vomit Will treat conservatively Start IV fluids Hold Lasix (2) Intra-abdominal abscess: Plan: CT abdomen today 08/19 shows increase in size in the right lower quadrant loculated fluid collection as well as progressive multiloculated small foci of gas and fluid collections within and deep to the left mid abdominal wall, consistent with progressive abscesses/fistulas. Per surgery, he is not a surgical candidate and there is no drainable abscess. Broaden antibiotic coverage from IV Unasyn to IV vancomycin and Zosyn. I updated about the CT findings. (3) History of DVT (deep vein thrombosis): Plan: Now with new acute DVT on both lower extremities, And possibly PE, given recent hypoxemia and worsening arrhythmias. 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 Although unable to confirm PE because patient is too unstable to go for CT angio. 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 Went to the OR for laparoscopic cholecystectomy was converted to exploratory laparotomy, bowel resection. 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 Wound VAC in place NG tube has been removed Continue wound care (7) GI bleed: Plan: Has been having dark tarry stools. Most likely GI bleed from possible gastritis given long NG tube status Will hold heparin for now No indication for EGD or colonoscopy given recent abdominal surgery. Continue to monitor (8) Cholecystitis: Plan: Status post gallbladder removal Gallbladder fluid grew Klebsiella and Clostridium perfringens Switch from IV Unasyn to IV vancomycin and Zosyn (9) Gastroesophageal reflux disease: Plan: Was on famotidine on admisison, now on IV Protonix (10) History of intestinal obstruction: Plan: History of small bowel obstruction in the past (11) Malnutrition: Plan: TPN has been discontinued after 16 days, was tolerating full liquid diet after swallow eval. Now n.p.o. due to small bowel obstruction (12) Physical deconditioning: Plan: Physically deconditioned Continue PT (13) Endotracheally intubated: Plan: Extubated 5/6 On room air now (14) Shock: Plan: resolved (15) Hypernatremia: Plan: Resolved (16) Acute blood loss anemia: Plan: From GI loss Transfuse if hemoglobin drops below 7 Plan VTE Prophylaxis: scd CODE STATUS: Full code Admission and Anticipated Discharge Date Admission Date: July 29, 2023 Subjective Patient had a fever spike overnight. Urinalysis, blood culture, CT abdomen and chest x-ray were ordered. This morning, patient vomited once. He is very tired currently. His was at the bedside during my encounter. Review of Systems Review of Systems: All systems reviewed & are unremarkable except as noted in Subjective Physical Exam Physical Exam: General: Awake but drifting to sleep. Able to hold a conversation. Heart: S1, S2/regular rate and rhythm, no murmur rubs or gallops Lungs: Clear to auscultation. Normal effort. Abdomen: Wound VAC in place Extremities: No clubbing/cyanosis. No edema Behavior: Appropriate, cooperative Results & Data Results & Data Vital Signs (Past 12 Hours) Vital Signs Temp Pulse Pulse Resp BP Pulse Ox O2 Del Method 08/20/23 15:50 101 H 08/20/23 15:11 37.0 C 98 H 18 136/78 93 Nasal Cannula 08/20/23 11:27 37.6 C H 98 H 18 120/66 93 Room Air 08/20/23 07:26 37.2 C 94 H 18 147/73 H 95 Room Air 08/20/23 07:25 96 H 08/20/23 07:11 Room Air O2 Flow Rate 08/20/23 15:50 08/20/23 15:11 2 08/20/23 11:27 08/20/23 07:26 08/20/23 07:25 08/20/23 07:11 Laboratory Results Abnormal lab results 08/19/23 08/20/23 Range/Units 22:11 06:53 WBC 14.93 H 14.77 H (4.8-10.8) K/ul RBC 3.56 L 3.46 L (4.70-6.10) M/uL Hgb 10.0 L 9.6 L (14.0-18.0) g/dl Hct 30.5 L 30.1 L (42.0-52.0) % MCHC 31.9 L (32.0-36.0) g/dL RDW Std Deviation 46.9 H (36.4-46.3) fL RDW Coeff of Abdi 14.8 H 14.8 H (11.5-14.5) % Plt Count 484 H 446 H (130-400) K/uL Neut # (Auto) 11.83 H (1.40-6.50) K/uL [place]bury # (Auto) 1.44 H (0.11-0.59) K/uL Sodium 130 L 132 L (136-145) mmol/L Chloride 96 L 97 L (98-107) mmol/L BUN 27 H 28 H (6-23) mg/dl BUN/Creatinine Ratio 26.5 H 26.7 H (10-20) Glucose 100 H 103 H (70-99(Fasting)) mg/dl AST 48 H (13-39) U/L Alkaline Phosphatase 172 H (34-104) U/L C-Reactive Protein 11.93 H (0-0.5) mg/dl Albumin 2.9 L (3.4-5.0) gm/dl Albumin/Globulin Ratio 0.8 L (0.9-2) Diagnostic Findings Chest X-Ray 08/19/23 21:47 XR chest 1V portable HISTORY: new oxygen requirement, fever COMPARISON: Chest CTA 08/16/2023. FINDINGS: A right PICC terminates in the SVC. There are suture material within the left upper lobe. No pneumothorax. Trace bilateral pleural effusions and a few bibasilar linear densities. This favors subsegmental atelectasis. The heart remains mildly enlarged. No evidence for pulmonary edema. IMPRESSION: 1. Trace bilateral pleural effusions. 2. Bibasilar linear densities. This favors subsegmental atelectasis. 3. Mild cardiomegaly. ACT 112: Negative or not required by law. Electronically signed by: Emir Velazquez M.D. 08/20/2023 8:21 AM Abdomen/Pelvis CT 08/19/23 22:[address] WITHOUT CONTRAST CT DOSE: 1839.53 mGy.cm HISTORY: new fever, known abscess TECHNIQUE: Multiaxial CT images of the abdomen and pelvis were performed without contrast. A dose lowering technique was utilized adhering to the principles of ALARA. COMPARISON STUDY: Abdomen and pelvis CT 08/16/2023. FINDINGS: Slight decrease in size in the loculated fluid collection within the right lower quadrant which now measures 6.4 x 2.9 cm. Midline abdominal wall incision/wound persists. This contains a few punctate focus of gas both within the wound and deep to the abdominal wall. This is similar to the prior study. Small bowel loops remain matted against the anterior abdominal wall including a site of prior small bowel anastomosis. Therefore, these small foci of adjacent gas within the wound raise the possibility of an underlying enterocutaneous fistula. Patchy right lower lobe airspace opacities have progressed and are concerning for a pneumonia. This could be due to prior aspiration. Mild dependent change at the left lung base again noted. There is a left total hip arthroplasty. No acute fractures identified. Prior cholecystectomy. The unenhanced adrenal glands are unremarkable. There are few punctate bilateral renal calculi. Multiple bilateral renal hypodense lesions remain unchanged. These are incompletely characterized on this noncontrast study but favor cysts. Lobular appearance to the spleen, unchanged. Scattered hepatic lesions remain stable some which demonstrate central calcification. A few small cystic foci again noted within the pancreas which favor side branch intraductal papillary mucinous neoplasms. There is additional scattered areas of gas within and sanjay cent to the left mid abdominal wall which have progressed. These could represent focal small abscesses versus progression of the enterocutaneous fistulas. There is associated mild fat stranding at this location. These are best seen on image 214. Punctate focus of gas within the bladder is noted. Moderate well-formed stool within the rectum. Colonic diverticulosis. Dilated fluid-filled loops of proximal to mid small bowel with an apparent transition point at the anastomosis within the left mid abdomen on image 274. This is concerning for a small bowel obstruction. This is new compared the prior study. Normal appendix. Residual barium contrast within the colon. Inflammatory change and adjacent pericolonic gas/fluid collection within the mid descending colon on image 222. This is likely reactive to the adjacent small abdominal wall abscesses/fistulas. A superimposed acute diverticulitis is also considered in the differential diagnosis. IMPRESSION: 1. Interval development of a small bowel obstruction with the transition point located within the left mid abdomen at the site of small bowel anastomosis as described above. 2. Progressive multiloculated small foci of gas and fluid collections within and deep to the left mid abdominal wall. This is consistent with progressive abscesses/fistulas. 3. Slight increase in size in the right lower quadrant loculated fluid collection. 4. Midline abdominal wall incision/fluid persists which contains a few punctate foci of gas both within and deep to the wound. This raises the possibility of underlying enterocutaneous fistula. 5. Patchy right lower lobe airspace opacities have progressed and are concerning for a pneumonia. 6. Inflammatory change and adjacent pericolonic gas/fluid collection within the mid descending colon as described above. This is likely reactive to the adjacent small abdominal wall abscesses/fistulas. A superimposed acute diverticulitis is also considered in the differential diagnosis. 7. Additional findings as described above. ACT 112: Negative or not required by law. Electronically signed by: Emir Velazquez M.D. 08/20/2023 1:37 PM PG Care Time/CCT Total # of Minutes Spent Total Time Spent with Patient: Total time spent is greater than 50% in coordination of care (as documented) at patient's floor/unit and/or counseling patient: Coding Level of Care Code 31681 SUB INP/OBS CARE 2/35MIN Diagnoses SBO (small bowel obstruction) K56.609 Intra-abdominal abscess K65.1 History of DVT (deep vein thrombosis) Z86.718 Atrial fibrillation I48.91 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 Status post laparotomy Z98.890 GI bleed K92.2 Cholecystitis K81.9 Gastroesophageal reflux disease, unspecified whether esophagitis present K21.9 Esophagitis presence: esophagitis presence not specified History of intestinal obstruction Z87.19 Malnutrition E46 Physical deconditioning R53.81 Endotracheally intubated Z97.8 Shock R57.9 Hypernatremia E87.0 Acute blood loss anemia D62 (9) Gastroesophageal reflux disease Esophagitis presence: esophagitis presence not specified Qualified Code(s): K21.9 - Gastro-esophageal reflux disease without esophagitis
[2023-08-20] MEDS: SODIUM CHLORIDE 0.9% 1,000 ML IV SCH (16:41)
[2023-08-20] MEDS: PIPERACILLIN/TAZOBACTAM 4.5 GM in DEXTROSE 5% MINI-B 100 ML IV SCH (18:27)
[2023-08-21] MEDS: ACETAMINOPHEN 1,000 MG/100 ML VIAL IV STA (01:16)
--- NOTE | 2023-08-21 05:21 | Surgery Progress Note ---
Date of Service August 21, 2023 Assessment & Plan (1) Hx laparoscopic cholecystectomy: Plan: Patient is status post laparoscopic cholecystectomy with conversion to exploratory laparotomy and small bowel resection on 07/30/2023 (postoperative day #22) Due to noted febrile episodes patient underwent a CT scan of the abdomen pelvis on 08/20/2023: -The scan demonstrated patient had potential developing small bowel obstruction and progressive multiloculated gas and fluid collections in the abdominal wall concerning for progressive abscesses/fistulas. Patient also has a fluid collection in the right lower quadrant. In addition, right lower lobe airspace opacities concerning for pneumonia were noted. -Patient was previously receiving antibiotics in the form of Unasyn but antibiotics have been broadened to Zosyn and vancomycin due to findings noted above -Blood and sputum cultures have been obtained with results pending; these results can help guide further antibiotic therapy Due to concern for developing small bowel obstruction patient's diet has been back down to n.p.o. status. Patient is considered high risk for any repeat surgical intervention and if patient has any further nausea or vomiting an NG tube should be placed. Intravenous fluids have been instituted to provide hydration while patient is n.p.o. Check a.m. labs when available Additional recommendations will be based on patient's clinical course as it unfolds as well as pending labs and cultures Admission and Anticipated Discharge Date Admission Date: July 29, 2023 Supervising Physician Co-Signing Physician Notes pnt S&E, agree w/ above. s/p ex lap, cholecystectomy and significant ANGELICA w/ enterotomy repairs. CT w/ partial sbo at anastomosis, stable to slightly larger abscesses/fistulas, poss pna. broadened abx, made npo. Feels better today, wbc down, passing flatus, denies nausea or pain. abd soft, vac intact, nt. wbc down. try clears again. Very high risk for any additional surgical intervention. Subjective Patient is currently resting comfortably in bed. Overnight he did not report any nausea or vomiting. He currently denies any abdominal pain. He currently notes his breathing feels comfortable with I discussed with the nurse attending to the patient's and she confirms patient has not had any nausea or vomiting. Intermittent low-grade temperatures have been noted. Patient noted to remain hemodynamically stable throughout the night. Review of Systems Respiratory: n Physical Exam Respiratory: Breath sounds are present bilaterally but decreased at the bases. No wheezing noted. Patient is not using accessory muscles to aid in respiratio Cardiovascular: Rate/Rhythm: regular rate and regular rhythm Gastrointestinal (Abdomen): Abdomen is soft with minimal distention. Wound VAC is in place and is holding suction appropriately. Palpation of the abdomen did not elicit much in the way of a painful response. Results & Data Vital Signs (Past 12 Hours) Vital Signs Temp Pulse Pulse Resp BP Pulse Ox O2 Del Method 08/21/23 03:39 37.3 C 101 H 18 112/65 93 Nasal Cannula 08/20/23 23:37 99 H 08/20/23 23:35 37.6 C H 108 H 20 112/66 94 Nasal Cannula 08/20/23 19:41 Nasal Cannula 08/20/23 19:29 37.1 C 106 H 20 115/69 93 Nasal Cannula O2 Flow Rate 08/21/23 03:39 2 08/20/23 23:37 08/20/23 23:35 2 08/20/23 19:41 2 08/20/23 19:29 2 PG Care Time/CCT Total # of Minutes Spent Total Time Spent with Patient: Total time spent is greater than 50% in coordination of care (as documented) at patient's floor/unit and/or counseling patient: Coding Level of Care Code 35127 Post Operative Follow-Up Diagnoses Hx laparoscopic cholecystectomy Z90.49
[2023-08-21 06:40] LABS: Basophils # (auto) 0.04 K/uL (0.00-0.20); Basophils % (auto) 0.3 %; Eosinophils # (auto) 0.15 K/uL (0.00-0.50); Eosinophils % (auto) 1.3 %; Hematocrit (blood only) 28.9 % (42.0-52.0); Hemoglobin 9.3 g/dl (14.0-18.0); Immature Granulocytes # (auto) 0.06 K/uL (0.01-0.20); Immature Granulocytes % (auto) 0.5 %; Lymphocytes % (auto) 9.4 %; Mean Corpuscular Hemoglobin 27.8 pg (25.0-34.0); Mean Corpuscular Hgb Conc 32.2 g/dL (32.0-36.0); Mean Corpuscular Volume 86.3 fL (80.0-100.0); Mean Platelet Volume 11.2 fL (9.4-12.4); Monocytes # (auto) 1.11 K/uL (0.11-0.59); Monocytes % (auto) 9.5 %; Neutrophils # (auto) 9.27 K/uL (1.40-6.50); Platelet Count 388 K/uL (130-400); RDW Coefficient of Variation 14.6 % (11.5-14.5); RDW Standard Deviation 45.8 fL (36.4-46.3); Red Blood Count 3.35 M/uL (4.70-6.10); White Blood Count 11.73 K/ul (4.8-10.8)
[2023-08-21 06:51] LABS: BUN Creatinine Ratio 24.6 (10-20); Calcium 8.9 mg/dl (8.6-10.3); Creatinine Clr Calc Pharmacy 45.6 ml/min; Est GFR (African American) 53.6 ml/min; Est GFR (Non-African American) 46.3 ml/min; Potassium 4.5 mmol/L (3.5-5.1)
--- NOTE | 2023-08-21 15:45 | Hospitalist Progress Note ---
Date of Service August 21, 2023 Assessment & Plan (1) SBO (small bowel obstruction): Plan: Patient had an episode of large-volume vomiting 08/19 CT abdomen shows small bowel obstruction with a transition point located at the site of small bowel anastomosis Patient had been made n.p.o. Patient did not have any further vomiting since Treated conservatively with IV fluids Patient is feeling much better today. He has better color. He is smiling. Noted that the surgery team has advanced him to a clear liquid diet. (2) Intra-abdominal abscess: Plan: CT abdomen 08/19 shows increase in size in the right lower quadrant loculated fluid collection as well as progressive multiloculated small foci of gas and fluid collections within and deep to the left mid abdominal wall, consistent with progressive abscesses/fistulas. Per surgery, he is not a surgical candidate and there is no drainable abscess. Broadened antibiotic coverage from IV Unasyn to IV vancomycin and Zosyn. Leukocytosis improving from 14-11. Patient is clinically improved with better color. He is smiling today. (3) History of DVT (deep vein thrombosis): Plan: Now with new acute DVT on both lower extremities, And possibly PE, given recent hypoxemia and worsening arrhythmias. 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 Although unable to confirm PE because patient is too unstable to go for CT angio. 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 Went to the OR for laparoscopic cholecystectomy was converted to exploratory laparotomy, bowel resection. 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 Wound VAC in place NG tube has been removed Continue wound care (7) GI bleed: Plan: Has been having dark tarry stools. Most likely GI bleed from possible gastritis given long NG tube status Will hold heparin for now No indication for EGD or colonoscopy given recent abdominal surgery. Continue to monitor (8) Cholecystitis: Plan: Status post gallbladder removal Gallbladder fluid grew Klebsiella and Clostridium perfringens Switch from IV Unasyn to IV vancomycin and Zosyn (9) Gastroesophageal reflux disease: Plan: Was on famotidine on admisison, now on IV Protonix (10) History of intestinal obstruction: Plan: History of small bowel obstruction in the past (11) Malnutrition: Plan: TPN has been discontinued after 16 days, was tolerating full liquid diet after swallow eval. was made n.p.o. yesterday. Now started back on clear liquid diet (12) Physical deconditioning: Plan: Physically deconditioned Continue PT (13) Endotracheally intubated: Plan: Extubated 5/6 On room air now (14) Shock: Plan: resolved (15) Hypernatremia: Plan: Resolved (16) Acute blood loss anemia: Plan: From GI loss Transfuse if hemoglobin drops below 7 Plan VTE Prophylaxis: scd CODE STATUS: Full code Admission and Anticipated Discharge Date Admission Date: July 29, 2023 Subjective Patient feels much better today. He is smiling. He is not nauseous. Not vomiting. He does not feel as though his belly is distended or painful Review of Systems Review of Systems: All systems reviewed & are unremarkable except as noted in Subjective Physical Exam Physical Exam: General: Awake, conversant, smiling Heart: S1, S2/regular rate and rhythm, no murmur rubs or gallops Lungs: Clear to auscultation. Normal effort. Abdomen: Wound VAC in place Extremities: No clubbing/cyanosis. No edema Behavior: Appropriate, cooperative Results & Data Results & Data Vital Signs (Past 12 Hours) Vital Signs Temp Pulse Pulse Resp BP Pulse Ox O2 Del Method 08/21/23 15:38 36.9 C 115 H 18 98/60 L 96 Nasal Cannula 08/21/23 10:55 37.0 C 74 18 112/71 96 Room Air 08/21/23 08:00 Nasal Cannula 08/21/23 07:25 36.5 C 69 18 100/62 98 Nasal Cannula 08/21/23 07:24 76 O2 Flow Rate 08/21/23 15:38 2 08/21/23 10:55 08/21/23 08:00 2 08/21/23 07:25 2 08/21/23 07:24 Laboratory Results Abnormal lab results 08/21/23 08/21/23 Range/Units 06:12 12:52 WBC 11.73 H (4.8-10.8) K/ul RBC 3.35 L (4.70-6.10) M/uL Hgb 9.3 L (14.0-18.0) g/dl Hct 28.9 L (42.0-52.0) % RDW Coeff of Abdi 14.6 H (11.5-14.5) % Neut # (Auto) 9.27 H (1.40-6.50) K/uL Lymph # (Auto) 1.10 L (1.20-3.40) K/uL Reynolds # (Auto) 1.11 H (0.11-0.59) K/uL Sodium 133 L (136-145) mmol/L BUN 34 H (6-23) mg/dl BUN/Creatinine Ratio 24.6 H (10-20) Glucose 123 H (70-99(Fasting)) mg/dl Random Vancomycin 4.2 L (10-20) mcg/ml PG Care Time/CCT Total # of Minutes Spent Total Time Spent with Patient: Total time spent is greater than 50% in coordination of care (as documented) at patient's floor/unit and/or counseling patient: Coding Level of Care Code 78385 SUB INP/OBS CARE 2/35MIN Diagnoses SBO (small bowel obstruction) K56.609 Intra-abdominal abscess K65.1 History of DVT (deep vein thrombosis) Z86.718 Atrial fibrillation I48.91 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 Status post laparotomy Z98.890 GI bleed K92.2 Cholecystitis K81.9 Gastroesophageal reflux disease, unspecified whether esophagitis present K21.9 Esophagitis presence: esophagitis presence not specified History of intestinal obstruction Z87.19 Malnutrition E46 Physical deconditioning R53.81 Endotracheally intubated Z97.8 Shock R57.9 Hypernatremia E87.0 Acute blood loss anemia D62 (9) Gastroesophageal reflux disease Esophagitis presence: esophagitis presence not specified Qualified Code(s): K21.9 - Gastro-esophageal reflux disease without esophagitis
[2023-08-21] MEDS: VANCOMYCIN HCL 1,500 MG in SODIUM CHLORIDE 0.9% 500 ML IV SCH (16:12)
[2023-08-21] MEDS: SODIUM CHLORIDE 0.9% 500 ML IV ONE (23:32)
[2023-08-22 06:19] LABS: Creatinine Clr Calc Pharmacy 68.4 ml/min; Est GFR (African American) 87.6 ml/min; Est GFR (Non-African American) 75.6 ml/min
--- NOTE | 2023-08-22 09:17 | Surgery Progress Note ---
Date of Service August 22, 2023 Assessment & Plan (1) Enterocutaneous fistula: Plan: Patient diet was back down to clear liquids Continue IV antbx Continue wound vac OOB as tolerates, PT and OT to work with patient Pt reports +flatus and +BMs Has been afebrile since yesterday, soft BPs will continue to monitor Admission and Anticipated Discharge Date Admission Date: July 29, 2023 Supervising Physician Co-Signing Physician Notes pnt S&E, agree w/ above. s/p ex lap, cholecystectomy and significant ANGELICA w/ e nterotomy repairs. continues to feel better, mult loose bm's overnight. tolerated clears. abd w/ vac in place, nt. can advance to fulls, will take it very slow. Subjective pt resting in bed denies abd discomfort Review of Systems Gastrointestinal: no abdominal pain, no nausea and no vomiting Physical Exam Constitutional: cooperative and comfortable; no acute distress Gastrointestinal (Abdomen): Inspection/Auscultation: + abdominal surgical incision (wound vac in place ) Results & Data Vital Signs (Past 12 Hours) Vital Signs Temp Pulse Pulse Resp BP Pulse Ox O2 Del Method 08/22/23 07:20 97.9 F 56 L 18 95/49 L 98 Nasal Cannula 08/22/23 07:07 74 08/22/23 03:32 98.1 F 65 20 101/61 99 Nasal Cannula 08/22/23 00:06 90 98/56 L 08/21/23 23:20 98 H 08/21/23 23:16 97.7 F 89 18 86/45 L 97 Nasal Cannula O2 Flow Rate 08/22/23 07:20 2 08/22/23 07:07 08/22/23 03:32 2 08/22/23 00:06 08/21/23 23:20 08/21/23 23:16 PG Care Time/CCT Total # of Minutes Spent Total Time Spent with Patient: Total time spent is greater than 50% in coordination of care (as documented) at patient's floor/unit and/or counseling patient: Coding Level of Care Code 85817 Post Operative Follow-Up Diagnoses 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
[2023-08-22 09:27] LABS: Hematocrit (blood only) 24.6 % (42.0-52.0); Hemoglobin 7.8 g/dl (14.0-18.0); Mean Corpuscular Hemoglobin 27.8 pg (25.0-34.0); Mean Corpuscular Hgb Conc 31.7 g/dL (32.0-36.0); Mean Corpuscular Volume 87.5 fL (80.0-100.0); Mean Platelet Volume 11.1 fL (9.4-12.4); Platelet Count 352 K/uL (130-400); RDW Coefficient of Variation 14.6 % (11.5-14.5); RDW Standard Deviation 47.1 fL (36.4-46.3); Red Blood Count 2.81 M/uL (4.70-6.10)
[2023-08-22 09:41] LABS: BUN Creatinine Ratio 26.1 (10-20); Creatinine Clr Calc Pharmacy 71.6 ml/min; Est GFR (African American) 90.8 ml/min; Est GFR (Non-African American) 78.3 ml/min; Potassium 3.7 mmol/L (3.5-5.1)
--- NOTE | 2023-08-22 10:55 | Pharmacy Report ---
Pharmacy PK ABX Note - Date of Service August 22, 2023 - Assessment and Plan Assessment 08/21 * SCr improved to 0.88 this morning, random level 7.6 mcg/mL predicts subtherapeutic dosing as steady state. Will adjust dose to target AUC/ELY 400- 600 mg/L.hr 08/19 * 83 year old M who has most recently been receiving Unasyn since 08/09 for IA abscess (per ID - signed off 08/11). S/p lap liv and small bowel resection 07/29. Imaging today noted worsening abscess and possible pneumonia. Therefore broadened to Zosyn and vancomycin. * SCr stable since yesterday, but slightly elevated from baseline. Will continue to monitor daily for now. Plan Vancomycin * Loading dose: 2000mg IV x 1 * Maintenance dose: 1500 mg IV q24h * Random Level: 7.6 mcg/mL * Adjust maintenance dose to 1500 mg IV q12H * Regimen is predicted to achieve target AUC/ELY of 400-600 mg/L.hr * Random level for 08/23 AM Pharmacy will continue to follow and will adjust dose/frequency as necessary. Thank you. Pharmacy has transitioned to AUC monitoring for vancomycin. AUC/ELY is the preferred PK/PD target and is associated with decreased risk of nephrotoxicity compared to traditional trough targets.
[2023-08-22] MEDS: VANCOMYCIN HCL 1,500 MG in SODIUM CHLORIDE 0.9% 500 ML IV SCH (12:00)
[2023-08-22 12:28] LABS: Hematocrit (blood only) 25.1 % (42.0-52.0); Hemoglobin 7.9 g/dl (14.0-18.0)
--- NOTE | 2023-08-22 13:08 | Hospitalist Progress Note ---
Date of Service August 22, 2023 Assessment & Plan (1) SBO (small bowel obstruction): Plan: Patient had an episode of large-volume vomiting 08/19 CT abdomen shows small bowel obstruction with a transition point located at the site of small bowel anastomosis Patient had been made n.p.o. and was treated conservatively with IV fluids Patient did not have any further vomiting since Now has been tolerating clear liquid diet Will advance slowly as tolerated Surgery on board (2) Intra-abdominal abscess: Plan: CT abdomen 08/19 shows increase in size in the right lower quadrant loculated fluid collection as well as progressive multiloculated small foci of gas and fluid collections within and deep to the left mid abdominal wall, consistent with progressive abscesses/fistulas. Per surgery, he is not a surgical candidate and there is no drainable abscess. Broadened antibiotic coverage from IV Unasyn to IV vancomycin and Zosyn. Leukocytosis resolved. Patient is clinically improved with better color. He is smiling today. Will contact infectious disease about antibiotic coverage tomorrow after the holiday (3) History of DVT (deep vein thrombosis): Plan: Now with new acute DVT on both lower extremities, And possibly PE, given recent hypoxemia and worsening arrhythmias. 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 Although unable to confirm PE because patient is too unstable to go for CT angio. 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 Went to the OR for laparoscopic cholecystectomy was converted to exploratory laparotomy, bowel resection. 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 Wound VAC in place NG tube has been removed Continue wound care (7) GI bleed: Plan: Per nurse, patient is having dark stools Noted that his hemoglobin is mildly low today from 9.3 yesterday to 7.9 today. This drop in hemoglobin could be dilutional but it could also be related to GI bleed Check H&H Q8 Transfusion consent obtained and placed in chart in case he needs transfused Continue to hold heparin Discontinue IV fluids as the patient is tolerating clear liquid diet to remove dilution as a confounding factor No indication for EGD or colonoscopy given recent abdominal surgery. Continue to monitor (8) Cholecystitis: Plan: Status post gallbladder removal Gallbladder fluid grew Klebsiella and Clostridium perfringens Switch from IV Unasyn to IV vancomycin and Zosyn (9) Gastroesophageal reflux disease: Plan: Was on famotidine on admisison, now on IV Protonix (10) History of intestinal obstruction: Plan: History of small bowel obstruction in the past (11) Malnutrition: Plan: TPN has been discontinued after 16 days, was tolerating full liquid diet after swallow eval. was made n.p.o. on 08/19. Now started back on clear liquid diet since 08/20 (12) Physical deconditioning: Plan: Physically deconditioned Continue PT (13) Endotracheally intubated: Plan: Extubated 07/31 On room air now (14) Shock: Plan: resolved (15) Hypernatremia: Plan: Resolved (16) Acute blood loss anemia: Plan: From GI loss Transfuse if hemoglobin drops below 7 Consent obtained and placed in chart Plan VTE Prophylaxis: scd CODE STATUS: Full code Admission and Anticipated Discharge Date Admission Date: July 29, 2023 Subjective Patient feels better overall. Tolerating clear liquid diet. Review of Systems Review of Systems: All systems reviewed & are unremarkable except as noted in Subjective Physical Exam Physical Exam: General: Awake, conversant, smiling Heart: S1, S2/regular rate and rhythm, no murmur rubs or gallops Lungs: Clear to auscultation. Normal effort. Abdomen: Wound VAC in place Extremities: No clubbing/cyanosis. No edema Behavior: Appropriate, cooperative Results & Data Results & Data Vital Signs (Past 12 Hours) Vital Signs Temp Pulse Pulse Resp BP BP Pulse Ox 08/22/23 11:22 36.6 C 79 18 108/63 99 08/22/23 08:15 08/22/23 07:20 36.6 C 56 L 18 95/49 L 98 08/22/23 07:07 74 08/22/23 03:32 36.7 C 65 20 101/61 99 O2 Del Method O2 Flow Rate 08/22/23 11:22 Nasal Cannula 2 08/22/23 08:15 Nasal Cannula 2 08/22/23 07:20 Nasal Cannula 2 08/22/23 07:07 08/22/23 03:32 Nasal Cannula 2 Laboratory Results Abnormal lab results 08/21/23 08/22/23 08/22/23 Range/Units 12:52 05:11 09:08 RBC 2.81 L (4.70-6.10) M/uL Hgb 7.8 L (14.0-18.0) g/dl Hct 24.6 L (42.0-52.0) % MCHC 31.7 L (32.0-36.0) g/dL RDW Std Deviation 47.1 H (36.4-46.3) fL RDW Coeff of Abdi 14.6 H (11.5-14.5) % Sodium 134 L (136-145) mmol/L BUN/Creatinine Ratio 26.1 H (10-20) Glucose 166 H (70-99(Fasting)) mg/dl Calcium 8.0 L (8.6-10.3) mg/dl Random Vancomycin 4.2 L 7.6 L (10-20) mcg/ml 08/22/23 Range/Units 12:15 RBC (4.70-6.10) M/uL Hgb 7.9 L (14.0-18.0) g/dl Hct 25.1 L (42.0-52.0) % MCHC (32.0-36.0) g/dL RDW Std Deviation (36.4-46.3) fL RDW Coeff of Abdi (11.5-14.5) % Sodium (136-145) mmol/L BUN/Creatinine Ratio (10-20) Glucose (70-99(Fasting)) mg/dl Calcium (8.6-10.3) mg/dl Random Vancomycin (10-20) mcg/ml PG Care Time/CCT Total # of Minutes Spent Total Time Spent with Patient: Total time spent is greater than 50% in coordination of care (as documented) at patient's floor/unit and/or counseling patient: Coding Level of Care Code 03571 SUB INP/OBS CARE 2/35MIN Diagnoses SBO (small bowel obstruction) K56.609 Intra-abdominal abscess K65.1 History of DVT (deep vein thrombosis) Z86.718 Atrial fibrillation I48.91 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 Status post laparotomy Z98.890 GI bleed K92.2 Cholecystitis K81.9 Gastroesophageal reflux disease, unspecified whether esophagitis present K21.9 Esophagitis presence: esophagitis presence not specified History of intestinal obstruction Z87.19 Malnutrition E46 Physical deconditioning R53.81 Endotracheally intubated Z97.8 Shock R57.9 Hypernatremia E87.0 Acute blood loss anemia D62 (9) Gastroesophageal reflux disease Esophagitis presence: esophagitis presence not specified Qualified Code(s): K21.9 - Gastro-esophageal reflux disease without esophagitis
[2023-08-22 20:16] LABS: Hematocrit (blood only) 27.4 % (42.0-52.0); Hemoglobin 8.6 g/dl (14.0-18.0)
[2023-08-23 06:20] LABS: Hematocrit (blood only) 24.5 % (42.0-52.0); Hemoglobin 7.8 g/dl (14.0-18.0); Mean Corpuscular Hemoglobin 27.5 pg (25.0-34.0); Mean Corpuscular Hgb Conc 31.8 g/dL (32.0-36.0); Mean Corpuscular Volume 86.3 fL (80.0-100.0); Mean Platelet Volume 10.8 fL (9.4-12.4); Platelet Count 330 K/uL (130-400); RDW Coefficient of Variation 14.6 % (11.5-14.5); RDW Standard Deviation 46.4 fL (36.4-46.3); Red Blood Count 2.84 M/uL (4.70-6.10); White Blood Count 7.43 K/ul (4.8-10.8)
[2023-08-23 06:31] LABS: BUN Creatinine Ratio 18.9 (10-20); Calcium 8.2 mg/dl (8.6-10.3); Creatinine Clr Calc Pharmacy 85.2 ml/min; Est GFR (African American) 97.5 ml/min; Est GFR (Non-African American) 84.1 ml/min; Potassium 3.6 mmol/L (3.5-5.1)
--- NOTE | 2023-08-23 08:29 | Surgery Progress Note ---
Date of Service August 23, 2023 Assessment & Plan (1) Enterocutaneous fistula: Plan: Pt tolerating full liquids Continue IV antbx Continue wound vac OOB as tolerates, PT and OT to work with patient will continue to monitor as above. pt currently feeling well. no more n/v. bowels now moving will keep on fulls today...if he continues to do well will advance to regular again tomorrow. wound vac changed today. pictures reviewed. Admission and Anticipated Discharge Date Admission Date: July 29, 2023 Subjective No n/v denies abd pain Review of Systems Constitutional: no chills Cardiovascular: no chest pain Gastrointestinal: no abdominal pain, no nausea and no vomiting Integumentary: + wounds abd post op incisional , vac on Physical Exam Physical Exam: alert oriented Constitutional: cooperative and comfortable; no acute distress Respiratory: normal respiratory effort and able to speak in complete sentences; no respiratory distress Gastrointestinal (Abdomen): Inspection/Auscultation: + abdomen distended and + abdominal surgical incision (wound vac in place ) Percussion/Palpation: + abdomen tender and abdomen soft Psychiatric: Orientation: alert and oriented x 3 Results & Data Vital Signs (Past 12 Hours) Vital Signs Temp Pulse Pulse Resp BP Pulse Ox O2 Del Method 08/23/23 07:36 98.1 F 83 18 108/69 97 Room Air 08/23/23 07:16 81 08/23/23 04:15 97.9 F 90 20 115/67 97 Nasal Cannula 08/22/23 23:29 98.2 F 85 20 96 Nasal Cannula 08/22/23 21:58 92 H 08/22/23 20:30 Nasal Cannula O2 Flow Rate 08/23/23 07:36 08/23/23 07:16 08/23/23 04:15 2 08/22/23 23:29 2 08/22/23 21:58 08/22/23 20:30 2 PG Care Time/CCT Total # of Minutes Spent Total Time Spent with Patient: Total time spent is greater than 50% in coordination of care (as documented) at patient's floor/unit and/or counseling patient: Coding Level of Care Code 01080 Post Operative Follow-Up Diagnoses 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
[2023-08-23 12:31] LABS: Hematocrit (blood only) 30.5 % (42.0-52.0); Hemoglobin 9.6 g/dl (14.0-18.0)
--- NOTE | 2023-08-23 14:35 | Hospitalist Progress Note ---
Date of Service August 23, 2023 Assessment & Plan (1) SBO (small bowel obstruction): Plan: Patient had an episode of large-volume vomiting 08/19 CT abdomen showed small bowel obstruction with a transition point located at the site of small bowel anastomosis Patient had been made n.p.o. and was treated conservatively with IV fluids Patient did not have any further vomiting since Now has been tolerating full liquid diet Will advance slowly as tolerated Surgery on board (2) Intra-abdominal abscess: Plan: CT abdomen 08/19 shows increase in size in the right lower quadrant loculated fluid collection as well as progressive multiloculated small foci of gas and fluid collections within and deep to the left mid abdominal wall, consistent with progressive abscesses/fistulas. Per surgery, he is not a surgical candidate and there is no drainable abscess. Broadened antibiotic coverage from IV Unasyn to IV vancomycin and Zosyn. Reconsulted infectious disease Currently on IV Zosyn alone Leukocytosis resolved. (3) History of DVT (deep vein thrombosis): Plan: Now with new acute DVT on both lower extremities, And possibly PE, given recent hypoxemia and worsening arrhythmias. 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 Although unable to confirm PE because patient is too unstable to go for CT angio. 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 Went to the OR for laparoscopic cholecystectomy was converted to exploratory laparotomy, bowel resection. 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 Wound VAC in place NG tube has been removed Continue wound care (7) GI bleed: Plan: Per nurse, patient is having dark stools Hemoglobin stayed stable Transfusion consent obtained and placed in chart in case he needs transfused Continue to hold heparin No indication for EGD or colonoscopy given recent abdominal surgery. Continue to monitor (8) Cholecystitis: Plan: Status post gallbladder removal Gallbladder fluid grew Klebsiella and Clostridium perfringens Switch from IV Unasyn to IV vancomycin and Zosyn (9) Gastroesophageal reflux disease: Plan: Was on famotidine on admisison, now on IV Protonix (10) History of intestinal obstruction: Plan: History of small bowel obstruction in the past (11) Malnutrition: Plan: TPN has been discontinued after 16 days, was tolerating full liquid diet after swallow eval. was made n.p.o. on 08/19. Now back on a full liquid diet (12) Physical deconditioning: Plan: Physically deconditioned Continue PT (13) Endotracheally intubated: Plan: Extubated 07/31 On room air now (14) Shock: Plan: resolved (15) Hypernatremia: Plan: Resolved (16) Acute blood loss anemia: Plan: From GI loss Transfuse if hemoglobin drops below 7 Consent obtained and placed in chart Plan VTE Prophylaxis: scd CODE STATUS: Full code Admission and Anticipated Discharge Date Admission Date: July 29, 2023 Subjective Patient feels well. Sitting up on bedside recliner. He says that he worked with therapy today and was able to walk a few steps in the room. Denies chest pain, shortness of breath. No more vomiting. Review of Systems Review of Systems: All systems reviewed & are unremarkable except as noted in Subjective Physical Exam Physical Exam: General: Awake, conversant, smiling Heart: S1, S2/regular rate and rhythm, no murmur rubs or gallops Lungs: Clear to auscultation. Normal effort. Abdomen: Wound VAC in place Extremities: No clubbing/cyanosis. 1+ pitting bilateral edema Behavior: Appropriate, cooperative Results & Data Results & Data Vital Signs (Past 12 Hours) Vital Signs Temp Pulse Pulse Resp BP Pulse Ox O2 Del Method 08/23/23 11:29 37.3 C 90 19 108/67 98 Nasal Cannula 08/23/23 07:36 36.7 C 83 18 108/69 97 Room Air 08/23/23 07:16 81 08/23/23 04:15 36.6 C 90 20 115/67 97 Nasal Cannula O2 Flow Rate 08/23/23 11:29 2 08/23/23 07:36 08/23/23 07:16 08/23/23 04:15 2 Laboratory Results Abnormal lab results 08/22/23 08/23/23 08/23/23 Range/Units 20:02 05:35 12:12 RBC 2.84 L (4.70-6.10) M/uL Hgb 8.6 L 7.8 L 9.6 L (14.0-18.0) g/dl Hct 27.4 L 24.5 L 30.5 L (42.0-52.0) % MCHC 31.8 L (32.0-36.0) g/dL RDW Std Deviation 46.4 H (36.4-46.3) fL RDW Coeff of Abdi 14.6 H (11.5-14.5) % Sodium 134 L (136-145) mmol/L Calcium 8.2 L (8.6-10.3) mg/dl PG Care Time/CCT Total # of Minutes Spent Total Time Spent with Patient: Total time spent is greater than 50% in coordination of care (as documented) at patient's floor/unit and/or counseling patient: Coding Level of Care Code 11927 SUB INP/OBS CARE MIN Diagnoses SBO (small bowel obstruction) K56.609 Intra-abdominal abscess K65.1 History of DVT (deep vein thrombosis) Z86.718 Atrial fibrillation I48.91 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 Status post laparotomy Z98.890 GI bleed K92.2 Cholecystitis K81.9 Gastroesophageal reflux disease, unspecified whether esophagitis present K21.9 Esophagitis presence: esophagitis presence not specified History of intestinal obstruction Z87.19 Malnutrition E46 Physical deconditioning R53.81 Endotracheally intubated Z97.8 Shock R57.9 Hypernatremia E87.0 Acute blood loss anemia D62 (9) Gastroesophageal reflux disease Esophagitis presence: esophagitis presence not specified Qualified Code(s): K21.9 - Gastro-esophageal reflux disease without esophagitis
--- NOTE | 2023-08-23 14:47 | Infectious Disease Progress Nt ---
Date of Service August 23, 2023 Assessment & Plan (1) Intra-abdominal abscess: (2) Enterocutaneous fistula: (3) Status post laparotomy: (4) SBO (small bowel obstruction): (5) Cholecystitis: Plan 83yo M with h/o splenectomy, bowel obstruction in past (managed w/o surgical intervention), Afib, L Hip arthroplasty, obesity who was admitted on 07/28 with acute abdominal pain. Admission labs showed WBC 9.7 but inc to 19 the next day, chem normal. CXR neg. CT A/P and RUQ u/s showed acute cholecystitis. S/p OR on 07/29 for acute cholecystitis which was converted to exploratory laparotomy, where he underwent cholecystectomy as well as small bowel resection, entero- enterostomy, repair of enterotomies and extensive enterolysis (per op note, gangrenous gallbladder noted). OR gallbladder fluid cx grew reveles sensitive K pneumoniae and C. perfringens. OR path showed severe acute necrotizing cholecystitis, small intestine path acute serositis with acute enteritis. He was treated with cefepime, flagyl, caspofungin. On 07/31 CTAP showed dependent airspace consolidation, free air in abdomen likely secondary to postoperative, mild edema in gallbladder fossa; surgical drain in in RUQ not in gb fossa. ID was consulted on 08/09 at which time, WBC was in 20s. Repeat CTAP was advised, which was done on 08/09 and showed 7.8 cm loculated fluid collection within the lower quadrant c/f an abscess contiguous with an additional small fluid collection within the abdominal RLQ - there is a separate smaller loculated fluid collection in the left lower colic gutter, 3.9 cm. Seen by IR, but no adequate window for percutaneous drainage. Therefore, no drainage was performed. Plan was therefore for Unasyn for 4-[address] weeks [address] follow up CT. Course c/b afib with RVR, acute RLE DVT. TTE 08/12 was limited, normal LV function. Course again c/b fevers on 08/18. He has been on 2L NC throughout stay. WBC went up to 14 on 08/18, since downtrended. Elevated CRP. CXR on 08/18 with trace bl pleural effusions, bibasilar linear densities favoring atelectasis. CTAP with interval development of SBO, progressive multiloculated small foci of gas and fluid collections within and deep to the left mid-abdominal wall c/w progressive abscesses/fistulas, slight increase in size in RLQ loculated fluid collection, patchy RLL opacities have progressed c/f PNA, inflammatory change and adjacent pericolonic gas/fluid collection within the mid descending colon, likely reactive, superimposed acute diverticulitis is considered. Abx were broadened to vancomycin and zosyn. Per surgery, patient is not a surgical candidate. ID reconsulted 08/22. I spoke to radiology regarding this CT scans since the report notes a smaller measurement on 08/18 compared to prior. Per radiology, there is a very slight worsening of the abscess, including quantity of abscess, all at the abdominal wall and most likely due to the EC fistula. Unfortunately, I think the ongoing issue of his abscess is a mechanical problem from EC fistula than failure of the antibiotics. However, we can most certainly continue on broader coverage with zosyn and see if there is any effect from this. He also had some RLL changes c/f PNA, though he hasnt had any worsening hypoxia. Since MRSA screen was negative, Myriam stopped vancomycin. At this point, will keep him on zosyn and reimage in 2- 3 weeks. If no change or any worsening, then he would be considered to have failed abx therapy and needs surgical management. # Multiple intraabdominal abscesses with 7.8 cm loculated fluid collection RLQ, not accessible by IR - worse # Acute necrotizing cholecystitis and enteritis # S/p SB resection, cholecystectomy 07/29 # Enterocutaneous fistula on wound vac - Myriam stopped vancomycin - continue zosyn 4.5g IV q8h - repeat CTAP with IV contrast in 2-3 weeks - if ongoing or worsening abscesses at that time, then we need to readdress surgical management - please monitor at least weekly CBC w diff and CMP while on IV abx (twice weekly while inpatient) ID will follow peripherally. If questions or concerns, contact Infectious Disease Call Center . Gemini Jones MD [facility], Division of Infectious Diseases [facility]: [phone] Admission and Anticipated Discharge Date Admission Date: July 29, 2023 Subjective Subsequent visit was provided via telemedicine using two-way real-time interactive telecommunication between the patient and the telemedicine provider. For the duration of the visit, the provider was performing the assessment from a different facility than the patient. This includesuse of bluetooth stethoscope forauscultationperformed by the telepresenter that the telemedicine provider can hear if described in the physical exam. [employer]opedic [employer]ic contact information: Please call [facility] Call Center [phone]. (Phone Number For Physician Use Only) After establishing a telemedicine visit, patient was: Patient was verified with two unique identifiers, Patient/authorized rep acknowledged consent and understanding and Gave permission to continue telehealth session Time Spent with Patient: Subsequent => 55 min Patient reports feeling well. No nausea, vomiting, diarrhea. Denies having abdominal pain. Says he feels sob with drinking too quick otherwise no SOB, no cough, chest pain. Physical Exam Physical Exam: General: Awake, alert, no acute distress HEENT: NC/AT, EOMI, mmm Neck: supple Lungs: respirations non-labored Heart: nl peripheral perfusion Abdomen: soft, wound vac in place with yellow/red drainage Skin: no rash Results & Data Vital Signs (Past 12 Hours) Vital Signs Temp Pulse Pulse Resp BP Pulse Ox O2 Del Method 08/23/23 11:29 37.3 C 90 19 108/67 98 Nasal Cannula 08/23/23 07:36 36.7 C 83 18 108/69 97 Room Air 08/23/23 07:16 81 08/23/23 04:15 36.6 C 90 20 115/67 97 Nasal Cannula O2 Flow Rate 08/23/23 11:29 2 08/23/23 07:36 08/23/23 07:16 08/23/23 04:15 2 Laboratory Results Labs reviewed. Diagnostic Findings Imaging reviewed.
[2023-08-23 20:17] LABS: Hematocrit (blood only) 24.2 % (42.0-52.0); Hemoglobin 7.8 g/dl (14.0-18.0)
[2023-08-24] MEDS: METOPROLOL TARTRATE 1 MG/ML VIAL IV STA (03:45)
[2023-08-24 06:31] LABS: Hemoglobin 8.7 g/dl (14.0-18.0); Mean Corpuscular Hemoglobin 27.5 pg (25.0-34.0); Mean Corpuscular Hgb Conc 32.2 g/dL (32.0-36.0); Mean Corpuscular Volume 85.4 fL (80.0-100.0); Mean Platelet Volume 10.7 fL (9.4-12.4); Platelet Count 365 K/uL (130-400); RDW Coefficient of Variation 14.2 % (11.5-14.5); RDW Standard Deviation 44.3 fL (36.4-46.3); Red Blood Count 3.16 M/uL (4.70-6.10); White Blood Count 8.41 K/ul (4.8-10.8)
[2023-08-24 06:34] LABS: BUN Creatinine Ratio 13.5 (10-20); Calcium 8.2 mg/dl (8.6-10.3); Creatinine Clr Calc Pharmacy 85.4 ml/min; Est GFR (African American) 97.5 ml/min; Est GFR (Non-African American) 84.1 ml/min; Potassium 3.5 mmol/L (3.5-5.1)
--- NOTE | 2023-08-24 07:56 | Surgery Progress Note ---
Date of Service August 24, 2023 Assessment & Plan (1) Enterocutaneous fistula: Plan: Patient reporting abdominal pain, dissipated some now this AM upon exam -WBC 8. HRs 100s. Afebrile. Resting in bed, appears fatigued -On exam abdomen is soft, mild discomfort lower abdomen. Midline wound vac holding seal but has brown liquid drainage pooling under inferior portion of dressing. He also has increased output from vac overall and there is 425cc in canister since last changed on Tuesday. Vac due to be changed today -We will back patient down to NPO for now to see if this helps control midline drainage -Continue PICC/TPN for nutrition. Will add albumin/prealbumin to AM blood work -ID recommending Zosyn and repeat imaging in 2-3 weeks -will continue to monitor, but no plans for surgical intervention Admission and Anticipated Discharge Date Admission Date: July 29, 2023 Subjective Patient with abdominal pain that almost brought him to tears this AM. He said it has dissipated some and is currently a 3/10. Denies nausea/vomiting. Reports passing small amounts of flatus. Physical Exam Physical Exam: awake, appears fatigued Respiratory: on 2L Gastrointestinal (Abdomen): Percussion/Palpation: + abdomen tender (mild lower abdominal discomfort) and abdomen soft wound vac to midline, holding seal. some + brown liquid drainage pooling under inferior portion of dressing. + light brown drainage in canister Results & Data Vital Signs (Past 12 Hours) Vital Signs Temp Pulse Pulse Resp BP BP Pulse Ox 08/24/23 04:05 101 H 106/69 08/24/23 03:45 141 H 103/64 08/24/23 03:34 98.4 F 129 H 16 103/64 95 08/23/23 23:20 85 08/23/23 22:41 98.6 F 97 H 16 107/61 92 O2 Del Method O2 Flow Rate 08/24/23 04:05 08/24/23 03:45 08/24/23 03:34 Nasal Cannula 2 08/23/23 23:20 08/23/23 22:41 Nasal Cannula 2 PG Care Time/CCT Total # of Minutes Spent Total Time Spent with Patient: Total time spent is greater than 50% in coordination of care (as documented) at patient's floor/unit and/or counseling patient: Coding Level of Care Code 38214 Post Operative Follow-Up Diagnoses 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
[2023-08-24 08:17] LABS: Albumin Level 2.2 gm/dl (3.4-5.0)
[2023-08-24] MEDS ORDERED: TPN/PPN CONSULT PHARMACY STA (09:25)
[2023-08-24] MEDS ORDERED: TPN/PPN CONSULT PHARMACY PRN ×2 (09:51→13:24)
[2023-08-24 09:52] LABS: Prealbumin 4.9 mg/dl (20-40)
[2023-08-24 12:37] LABS: Magnesium 1.8 mg/dl (1.7-2.4); Phosphorus 2.1 mg/dl (2.5-4.9)
--- NOTE | 2023-08-24 14:20 | Pharmacy Report ---
Pharmacy Initial PN Consult Nt - Date of Service August 24, 2023 - Scope Pharmacy has been consulted on this date to manage parenteral nutrition orders and order appropriate labs. As part of the Nutrition Support Team Guidelines, pharmacy will work in conjunction with dietary when determining the patients ca loric needs. - Subjective * The patient is a 83 year old Male admitted on 07/29/23 for ACUTE CHOLECYSTITIS. 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 - Objective Vascular Access: * Patient currently has a central line. Height & Weight (Last Documented) Height 5 ft 9 in Weight 100.8 kg Diet Order(s) 08/24/23 07:44 NPO Intake & Ouput (24hrs) 08/23/23 08/24/23 08/25/23 06:59 06:59 06:59 Intake Total 2827.083 / 2827.083 525 / 525 100 / 100 Output Total 1150 / 1150 1025 / 1025 Balance 1677.083 / 1677.083 -500 / -500 100 / 100 Selected Laboratory Results 08/24/23 05:48 Sodium 135 L Potassium 3.5 Chloride 103 Carbon Dioxide 28 Anion Gap 4 BUN 10 Creatinine 0.74 Est GFR ( Amer) 97.5 Est GFR (Non-Af Amer) 84.1 BUN/Creatinine Ratio 13.5 Glucose 105 H Calcium 8.2 L Phosphorus 2.[address] - Follow Up Nutrition Assessment Start: 08/01/23 09:56 Freq: Status: Active Protocol: Document 08/24/23 10:30 WN (Rec: 08/24/23 10:46 WN [id number]) RD - Initial Nutrition Assessment Start: 08/01/23 09:43 Freq: Status: Active Protocol: Document 08/01/23 09:43 WN (Rec: 08/01/23 09:56 WN [id number]) - Assessment & Plan Assessment: * Appreciate dietitians recommendations for macronutrients. * Patient was on TPN prior this admission and PICC remains in place. Resume today 2nd anticipated prolonged NPO again at this time. * Referenced prior most recent TPN bag administered about a week ago to help determine patient's possible electrolyte needs * Phosphorus a little low today. Will replete outside of the TPN prior to resuming TPN today, per Dr. Gigi TAY order * Will start with half-goal macronutrients today w plan to advance if electrolytes permit Plan: * For Day #1 of *resumed* TPN administration, the following will be ordered: * Macronutrients: * Amino Acids: 72 grams/day * Dextrose: 126 grams/day * Lipids: 50 grams/day * Micronutrients: * Sodium chloride: 75 mEq/day * Potassium phosphate: 40 mMol/day * Magnesium sulfate: 8.12 mEq/day * Multivitamins: 10 mL/day * Trace elements: 1 mL/day * Thiamine: 100 mg/day * Folic Acid: 1 mg/day * Total volume of 961 mL will be infused over 24 hours and will provide 1216 kcal/day * Labs will be ordered per PN protocol. * Pharmacy will follow and adjust PN orders on a daily basis. Thank you!
--- NOTE | 2023-08-24 14:58 | Hospitalist Progress Note ---
Date of Service August 24, 2023 Assessment & Plan (1) SBO (small bowel obstruction): Plan: Patient had an episode of large-volume vomiting 08/19 CT abdomen showed small bowel obstruction with a transition point located at the site of small bowel anastomosis Patient had been made n.p.o. and was treated conservatively with IV fluids Had slowly improved, was tolerating full liquid diet. But started having severe abdominal pain overnight. Now NPO. Surgery on board (2) Intra-abdominal abscess: Plan: CT abdomen 08/19 shows increase in size in the right lower quadrant loculated fluid collection as well as progressive multiloculated small foci of gas and fluid collections within and deep to the left mid abdominal wall, consistent with progressive abscesses/fistulas. Per surgery, he is not a surgical candidate and there is no drainable abscess. Broadened antibiotic coverage from IV Unasyn to IV vancomycin and Zosyn. Reconsulted infectious disease Currently on IV Zosyn alone Leukocytosis resolved. Patient started having severe abdominal pain overnight 08/23. Surgery concerned about increased abdominal wall discharge. He is back to being NPO. TPN started per surgery team. (3) History of DVT (deep vein thrombosis): Plan: Now with new acute DVT on both lower extremities, And possibly PE, given recent hypoxemia and worsening arrhythmias. 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 Although unable to confirm PE because patient is too unstable to go for CT angio. 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 Went to the OR for laparoscopic cholecystectomy was converted to exploratory laparotomy, bowel resection. 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 Wound VAC in place NG tube has been removed Continue wound care (7) GI bleed: Plan: Per nurse, patient is having dark stools Hemoglobin stayed stable Transfusion consent obtained and placed in chart in case he needs transfused Continue to hold heparin No indication for EGD or colonoscopy given recent abdominal surgery. Continue to monitor (8) Cholecystitis: Plan: Status post gallbladder removal Gallbladder fluid grew Klebsiella and Clostridium perfringens Switch from IV Unasyn to IV vancomycin and Zosyn (9) Gastroesophageal reflux disease: Plan: Was on famotidine on admisison, now on IV Protonix (10) History of intestinal obstruction: Plan: History of small bowel obstruction in the past (11) Malnutrition: Plan: TPN had been discontinued after 16 days, was tolerating full liquid diet after swallow eval. was made n.p.o. on 08/19. Then back on a full liquid diet. 08/23: N.p.o., TPN resumed (12) Physical deconditioning: Plan: Physically deconditioned Continue PT (13) Endotracheally intubated: Plan: Extubated 07/31 On room air now (14) Shock: Plan: resolved (15) Hypernatremia: Plan: Resolved (16) Acute blood loss anemia: Plan: From GI loss Transfuse if hemoglobin drops below 7 Consent obtained and placed in chart Plan VTE Prophylaxis: scd CODE STATUS: Full code Admission and Anticipated Discharge Date Admission Date: July 29, 2023 Subjective Patient had significant pain overnight. He was tachycardic. Review of Systems Review of Systems: All systems reviewed & are unremarkable except as noted in Subjective Physical Exam Physical Exam: General: Awake, conversant. Accompanied by at the bedside Heart: S1, S2/regular rate and rhythm, no murmur rubs or gallops Lungs: Clear to auscultation. Normal effort. Abdomen: Wound VAC in place Extremities: No clubbing/cyanosis. 1+ pitting bilateral edema Behavior: Appropriate, cooperative Results & Data Results & Data Vital Signs (Past 12 Hours) Vital Signs Temp Pulse Pulse Resp BP BP Pulse Ox 08/24/23 11:49 37.1 C 86 18 125/69 100 08/24/23 07:58 36.7 C 83 17 120/70 94 08/24/23 04:05 101 H 106/69 08/24/23 03:45 141 H 103/64 08/24/23 03:34 36.9 C 129 H 16 103/64 95 O2 Del Method O2 Flow Rate 08/24/23 11:49 Room Air 05/29/24 07:58 Nasal Cannula 2 08/24/23 04:05 08/24/23 03:45 08/24/23 03:34 Nasal Cannula 2 Laboratory Results Abnormal lab results 08/23/23 08/24/23 Range/Units 19:42 05:48 RBC 3.16 L (4.70-6.10) M/uL Hgb 7.8 L 8.7 L (14.0-18.0) g/dl Hct 24.2 L 27.0 L (42.0-52.0) % Sodium 135 L (136-145) mmol/L Glucose 105 H (70-99(Fasting)) mg/dl Calcium 8.2 L (8.6-10.3) mg/dl Phosphorus 2.1 L (2.5-4.9) mg/dl Albumin 2.2 L (3.4-5.0) gm/dl Prealbumin 4.9 L (20-40) mg/dl PG Care Time/CCT Total # of Minutes Spent Total Time Spent with Patient: Total time spent is greater than 50% in coordination of care (as documented) at patient's floor/unit and/or counseling patient: Coding Level of Care Code 15417 SUB INP/OBS CARE 2/35MIN Diagnoses SBO (small bowel obstruction) K56.609 Intra-abdominal abscess K65.1 History of DVT (deep vein thrombosis) Z86.718 Atrial fibrillation I48.91 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 Status post laparotomy Z98.890 GI bleed K92.2 Cholecystitis K81.9 Gastroesophageal reflux disease, unspecified whether esophagitis present K21.9 Esophagitis presence: esophagitis presence not specified History of intestinal obstruction Z87.19 Malnutrition E46 Physical deconditioning R53.81 Endotracheally intubated Z97.8 Shock R57.9 Hypernatremia E87.0 Acute blood loss anemia D62 (9) Gastroesophageal reflux disease Esophagitis presence: esophagitis presence not specified Qualified Code(s): K21.9 - Gastro-esophageal reflux disease without esophagitis
[2023-08-24] MEDS: POTASSIUM PHOSPHATE 15 MMOL in SODIUM CHLORIDE 0.9% 250 ML IV STA (14:59)
[2023-08-24] MEDS: [UNRECOGNIZED DRUG - OTHER] IV SCH (16:00)
[2023-08-24] MEDS: CLINOLIPID 20% IV FAT EMULSION 250 ML IV SCH (16:00)
[2023-08-24] MEDS: CENTRAL TPN IV SCH (16:00)
[2023-08-24] MEDS ORDERED: DEXTROSE 10% 1,000 ML IV PRN (16:00)
[2023-08-24] MEDS: STOP CLINOLIPID SCH (22:09)
[2023-08-25] MEDS ORDERED: TPN/PPN CONSULT PHARMACY PRN (06:00)
--- NOTE | 2023-08-25 07:26 | Surgery Progress Note ---
Date of Service August 25, 2023 Assessment & Plan (1) Hx laparoscopic cholecystectomy: (2) Enterocutaneous fistula: Plan: seems to have gone from an almost closed/low output fistula to a high output fistula after initiating diet. I recommend NPO/TPN/VAC for several weeks. hopefully the fistula will close. does not need to stay here in hospital for that can go to a SNF. will d/w and case management team. Admission and Anticipated Discharge Date Admission Date: July 29, 2023 Subjective pt seen/discussed with nursing. no issues overnight. currently no pain/nausea. Physical Exam Physical Exam: alert. nad abd: vac in place. small amount of drainage in vac cannister. more serous than stool. Results & Data Vital Signs (Past 12 Hours) Vital Signs Temp Pulse Pulse Resp BP Pulse Ox O2 Del Method 08/25/23 03:49 36.6 C 80 16 108/63 94 Nasal Cannula 08/24/23 23:26 80 08/24/23 23:23 37 C 97 H 16 119/59 L 95 Nasal Cannula 08/24/23 19:45 37.2 C 108 H 16 119/62 97 Nasal Cannula O2 Flow Rate 08/25/23 03:49 2 08/24/23 23:26 08/24/23 23:23 2 08/24/23 19:45 2 PG Care Time/CCT Total # of Minutes Spent Total Time Spent with Patient: Total time spent is greater than 50% in coordination of care (as documented) at patient's floor/unit and/or counseling patient: Coding Level of Care Code 25241 Post Operative Follow-Up Diagnoses Hx laparoscopic cholecystectomy Z90.49 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
[2023-08-25 07:34] LABS: Hematocrit (blood only) 24.2 % (42.0-52.0); Hemoglobin 7.6 g/dl (14.0-18.0); Mean Corpuscular Hgb Conc 31.4 g/dL (32.0-36.0); Mean Corpuscular Volume 85.8 fL (80.0-100.0); Mean Platelet Volume 10.3 fL (9.4-12.4); Platelet Count 304 K/uL (130-400); RDW Coefficient of Variation 14.4 % (11.5-14.5); RDW Standard Deviation 44.8 fL (36.4-46.3); Red Blood Count 2.82 M/uL (4.70-6.10); White Blood Count 7.71 K/ul (4.8-10.8)
[2023-08-25 07:39] LABS: BUN Creatinine Ratio 16.7 (10-20); Calcium 7.7 mg/dl (8.6-10.3); Creatinine Clr Calc Pharmacy 87.6 ml/min; Est GFR (African American) 98.6 ml/min; Est GFR (Non-African American) 85.1 ml/min; Magnesium 1.9 mg/dl (1.7-2.4); Phosphorus 2.6 mg/dl (2.5-4.9); Potassium 3.4 mmol/L (3.5-5.1)
--- NOTE | 2023-08-25 14:06 | Hospitalist Progress Note ---
Date of Service August 25, 2023 Assessment & Plan (1) SBO (small bowel obstruction): Plan: Patient had an episode of large-volume vomiting 08/19 CT abdomen showed small bowel obstruction with a transition point located at the site of small bowel anastomosis Patient had been made n.p.o. and was treated conservatively with IV fluids Had slowly improved, was tolerating full liquid diet. But started having severe abdominal pain on 08/23. Now NPO. Surgery on board (2) Intra-abdominal abscess: Plan: CT abdomen 08/19 shows increase in size in the right lower quadrant loculated fluid collection as well as progressive multiloculated small foci of gas and fluid collections within and deep to the left mid abdominal wall, consistent with progressive abscesses/fistulas. Per surgery, he is not a surgical candidate and there is no drainable abscess. Broadened antibiotic coverage from IV Unasyn to IV vancomycin and Zosyn. Reconsulted infectious disease Currently on IV Zosyn alone Leukocytosis resolved. Patient started having severe abdominal pain overnight 08/23. Surgery concerned about increased abdominal wall discharge. He is back to being NPO. TPN started per surgery team. 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 Surgery recommends n.p.o., TPN, wound VAC for several weeks. (4) History of DVT (deep vein thrombosis): Plan: Now with new acute DVT on both lower extremities, And possibly PE, given recent hypoxemia and worsening arrhythmias. 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 Although unable to confirm PE because patient is too unstable to go for CT angio. Heparin on hold on account of GI bleed Continue amiodarone and metoprolol p.o. (6) Status post laparotomy: Plan: Initially patient was thought to have acute cholecystitis. Went to the OR for laparoscopic cholecystectomy was converted to exploratory laparotomy, bowel resection. 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 Wound VAC in place NG tube has been removed Continue wound care (7) GI bleed: Plan: Per nurse, patient is having dark stools Hemoglobin stayed stable Transfusion consent obtained and placed in chart in case he needs transfused Continue to hold heparin No indication for EGD or colonoscopy given recent abdominal surgery. Continue to monitor (8) Cholecystitis: Plan: Status post gallbladder removal Gallbladder fluid grew Klebsiella and Clostridium perfringens Switch from IV Unasyn to IV vancomycin and Zosyn (9) Gastroesophageal reflux disease: Plan: Was on famotidine on admisison, now on IV Protonix (10) History of intestinal obstruction: Plan: History of small bowel obstruction in the past (11) Malnutrition: Plan: TPN had been discontinued after 16 days, was tolerating full liquid diet after swallow eval. was made n.p.o. on 08/19. Then back on a full liquid diet. 08/23: N.p.o., TPN resumed (12) Physical deconditioning: Plan: Physically deconditioned Continue PT (13) Endotracheally intubated: Plan: Extubated 07/31 On room air now (14) Shock: Plan: resolved (15) Hypernatremia: Plan: Resolved (16) Acute blood loss anemia: Plan: From GI loss Transfuse if hemoglobin drops below 7 Consent obtained and placed in chart Plan VTE Prophylaxis: scd CODE STATUS: Full code Per surgery, the patient does not need to be in the hospital for recovery of his enterocutaneous fistula. The plan is to continue n.p.o., wound VAC, TPN, IV antibiotics for several weeks. Disposition planning has been initiated. However, the patient has had 2 acute episodes and this past week. Will monitor the patient over the weekend to make sure he is medically stable. This will allow senior clinical project manager some time to arrange for his disposition needs. Admission and Anticipated Discharge Date Admission Date: July 29, 2023 Subjective Patient feels generally well. Denies chest pain or shortness of breath. No significant abdominal pain today. Review of Systems Review of Systems: All systems reviewed & are unremarkable except as noted in Subjective Physical Exam Physical Exam: General: Awake, conversant. Accompanied by at the bedside Heart: S1, S2/regular rate and rhythm, no murmur rubs or gallops Lungs: Clear to auscultation. Normal effort. Abdomen: Wound VAC in place Extremities: No clubbing/cyanosis. 1+ pitting bilateral edema Behavior: Appropriate, cooperative Results & Data Results & Data Vital Signs (Past 12 Hours) Vital Signs Temp Pulse Pulse Resp BP Pulse Ox O2 Del Method 08/25/23 11:44 36.4 C L 82 18 118/77 93 Room Air 08/25/23 08:00 36.3 C L 76 18 118/68 94 Nasal Cannula 08/25/23 07:30 75 08/25/23 03:49 36.6 C 80 16 108/63 94 Nasal Cannula O2 Flow Rate 08/25/23 11:44 08/25/23 08:00 2 08/25/23 07:30 08/25/23 03:49 2 PG Care Time/CCT Total # of Minutes Spent Total Time Spent with Patient: Total time spent is greater than 50% in coordination of care (as documented) at patient's floor/unit and/or counseling patient: Coding Level of Care Code 23686 SUB INP/OBS CARE 2/35MIN Diagnoses SBO (small bowel obstruction) K56.609 Intra-abdominal abscess K65.1 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 History of DVT (deep vein thrombosis) Z86.718 Atrial fibrillation I48.91 Status post laparotomy Z98.890 GI bleed K92.2 Cholecystitis K81.9 Gastroesophageal reflux disease, unspecified whether esophagitis present K21.9 Esophagitis presence: esophagitis presence not specified History of intestinal obstruction Z87.19 Malnutrition E46 Physical deconditioning R53.81 Endotracheally intubated Z97.8 Shock R57.9 Hypernatremia E87.0 Acute blood loss anemia D62 (9) Gastroesophageal reflux disease Esophagitis presence: esophagitis presence not specified Qualified Code(s): K21.9 - Gastro-esophageal reflux disease without esophagitis
[2023-08-25] MEDS: CLINOLIPID 20% IV FAT EMULSION 250 ML IV SCH (16:55)
[2023-08-25] MEDS: [UNRECOGNIZED DRUG - OTHER] IV SCH (16:56)
[2023-08-25] MEDS: CENTRAL TPN IV SCH (16:56)
[2023-08-25] MEDS: STOP CLINOLIPID SCH (22:14)
[2023-08-26 06:47] LABS: Hemoglobin 8.6 g/dl (14.0-18.0); Mean Corpuscular Hemoglobin 27.5 pg (25.0-34.0); Mean Corpuscular Hgb Conc 31.9 g/dL (32.0-36.0); Mean Corpuscular Volume 86.3 fL (80.0-100.0); Mean Platelet Volume 10.2 fL (9.4-12.4); Platelet Count 321 K/uL (130-400); RDW Coefficient of Variation 14.6 % (11.5-14.5); RDW Standard Deviation 45.5 fL (36.4-46.3); Red Blood Count 3.13 M/uL (4.70-6.10); White Blood Count 7.75 K/ul (4.8-10.8)
[2023-08-26 07:09] LABS: BUN Creatinine Ratio 24.6 (10-20); Calcium 7.7 mg/dl (8.6-10.3); Est GFR (African American) 102.8 ml/min; Est GFR (Non-African American) 88.7 ml/min; Magnesium 1.9 mg/dl (1.7-2.4); Phosphorus 2.6 mg/dl (2.5-4.9); Potassium 3.6 mmol/L (3.5-5.1)
--- NOTE | 2023-08-26 08:55 | Surgery Progress Note ---
Date of Service August 26, 2023 Assessment & Plan (1) Enterocutaneous fistula: Plan doing well clinically cont NPO/VAC/TPN/ will allow ice chips/hard candy for comfort. potential transfer to SNF next week. Admission and Anticipated Discharge Date Admission Date: July 29, 2023 Subjective as above. clinically doing well. and wound nurse at bedside. Physical Exam Physical Exam: alert. nad wound looks good. beefy granulation tissue. fistula visible at inferior portion. minimal bile/stool output. improving weekly Results & Data Vital Signs (Past 12 Hours) Vital Signs Temp Pulse Pulse Resp BP Pulse Ox O2 Del Method 08/26/23 07:50 36.2 C L 78 18 115/65 98 Nasal Cannula 08/26/23 00:46 36.7 C 82 18 119/64 94 Nasal Cannula 08/25/23 23:33 79 O2 Flow Rate 08/26/23 07:50 2 08/26/23 00:46 2 08/25/23 23:33 PG Care Time/CCT Total # of Minutes Spent Total Time Spent with Patient: Total time spent is greater than 50% in coordination of care (as documented) at patient's floor/unit and/or counseling patient: Coding Level of Care Code 04094 Post Operative Follow-Up Diagnoses 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
[2023-08-26] MEDS: guaiFENesin/DEXTROM SYRUP 200MG/20MG 10ML UDC PO PRN (10:36)
--- NOTE | 2023-08-26 11:39 | Pharmacy Report ---
Pharmacy PN Follow-up Note - Date of Service August 26, 2023 - Subjective Patient is currently on day #3 of resumed TPN. Back to goal macronutrients. - Objective Height & Weight (Last Documented) Height 5 ft 9 in Weight 100.4 kg Diet Order(s) 08/24/23 07:44 NPO Intake & Ouput (24hrs) 08/25/23 08/26/23 08/27/23 06:59 06:59 06:59 Intake Total 905 / 905 1411 / 1411 94.583 / 94.583 Output Total 700 / 700 1400 / 1400 Balance 205 / 205 94.583 / 94.583 Selected Laboratory Results 08/26/23 05:56 Sodium 135 L Potassium 3.6 Chloride 102 Carbon Dioxide 30 Anion Gap 3 BUN 16 Creatinine 0.65 Est GFR ( Amer) 102.8 Est GFR (Non-Af Amer) 88.7 BUN/Creatinine Ratio 24.6 H Glucose 122 H Calcium 7.7 L Phosphorus 2.6 Magnesium 1.9 - Assessment & Plan Assessment: * Patient remains NPO * Advanced to macronutrient goal on 08/24- seems to be tolerating * Electrolytes WNL with exception of low sodium, phos increase today as patient previously requiring higher daily requirements and at low end of goal * Renal function stable. Plan: * For Day #3 of *resumed* TPN administration, the following will be ordered: * Macronutrients: * Amino Acids: 144 grams/day * Dextrose: 252 grams/day * Lipids: 50 grams/day * Micronutrients: * Sodium chloride: 100 mEq/day * Sodium phosphate: 15 mMol/day * Potassium phosphate: 50 mMol/day * Magnesium sulfate: 8.12 mEq/day * Multivitamins: 10 mL/day * Trace elements: 1 mL/day * Thiamine: 100 mg/day * Folic Acid: 1 mg/day * Total volume of 1880 mL will be infused over 24 hours and will provide 1933 kcal/day * Labs will be ordered per PN protocol. * Pharmacy will follow and adjust PN orders on a daily basis. Thank you!
--- NOTE | 2023-08-26 13:41 | Hospitalist Progress Note ---
Date of Service August 26, 2023 Assessment & Plan (1) SBO (small bowel obstruction): Plan: Patient had an episode of large-volume vomiting 08/19 CT abdomen showed small bowel obstruction with a transition point located at the site of small bowel anastomosis Patient had been made n.p.o. and was treated conservatively with IV fluids Had slowly improved, was tolerating full liquid diet. But started having severe abdominal pain on 08/23. Now NPO. On TPN Surgery on board (2) Intra-abdominal abscess: Plan: CT abdomen 08/19 shows increase in size in the right lower quadrant loculated fluid collection as well as progressive multiloculated small foci of gas and fluid collections within and deep to the left mid abdominal wall, consistent with progressive abscesses/fistulas. Per surgery, he is not a surgical candidate and there is no drainable abscess. Broadened antibiotic coverage from IV Unasyn to IV vancomycin and Zosyn. Reconsulted infectious disease Currently on IV Zosyn alone Leukocytosis resolved. Patient started having severe abdominal pain overnight 08/23. Surgery concerned about increased abdominal wall discharge. He is back to being NPO. TPN started per surgery team. 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 Surgery recommends n.p.o., TPN, wound VAC for several weeks. (4) History of DVT (deep vein thrombosis): Plan: Now with new acute DVT on both lower extremities, And possibly PE, given recent hypoxemia and worsening arrhythmias. 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 Although unable to confirm PE because patient is too unstable to go for CT angio. Heparin on hold on account of GI bleed Continue amiodarone and metoprolol p.o. (6) Status post laparotomy: Plan: Initially patient was thought to have acute cholecystitis. Went to the OR for laparoscopic cholecystectomy was converted to exploratory laparotomy, bowel resection. 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 Wound VAC in place NG tube has been removed Continue wound care (7) GI bleed: Plan: Per nurse, patient is having dark stools Hemoglobin stayed stable Transfusion consent obtained and placed in chart in case he needs transfused Continue to hold heparin No indication for EGD or colonoscopy given recent abdominal surgery. Continue to monitor (8) Cholecystitis: Plan: Status post gallbladder removal Gallbladder fluid grew Klebsiella and Clostridium perfringens Switch from IV Unasyn to IV vancomycin and Zosyn (9) Gastroesophageal reflux disease: Plan: Was on famotidine on admisison, now on IV Protonix (10) History of intestinal obstruction: Plan: History of small bowel obstruction in the past (11) Malnutrition: Plan: TPN had been discontinued after 16 days, was tolerating full liquid diet after swallow eval. was made n.p.o. on 08/19. Then back on a full liquid diet. 08/23: N.p.o., TPN resumed (12) Physical deconditioning: Plan: Physically deconditioned Continue PT (13) Endotracheally intubated: Plan: Extubated 07/31 On room air now (14) Shock: Plan: resolved (15) Hypernatremia: Plan: Resolved (16) Acute blood loss anemia: Plan: From GI loss Transfuse if hemoglobin drops below 7 Consent obtained and placed in chart Plan VTE Prophylaxis: scd CODE STATUS: Full code Per surgery, the patient does not need to be in the hospital for recovery of his enterocutaneous fistula. The plan is to continue n.p.o., wound VAC, TPN, IV antibiotics for several weeks. Disposition planning has been initiated. However, the patient has had 2 acute episodes and this past week. Will monitor the patient over the weekend to make sure he is medically stable. This will allow bottle caser some time to arrange for his disposition needs. Admission and Anticipated Discharge Date Admission Date: July 29, 2023 Subjective Patient feels well. Denies chest pain or shortness of breath. No significant belly pain. Review of Systems Review of Systems: All systems reviewed & are unremarkable except as noted in Subjective Physical Exam Physical Exam: General: Awake, conversant. Accompanied by at the bedside Heart: S1, S2/regular rate and rhythm, no murmur rubs or gallops Lungs: Clear to auscultation. Normal effort. Abdomen: Wound VAC in place Extremities: No clubbing/cyanosis. 1+ pitting bilateral edema Behavior: Appropriate, cooperative Results & Data Results & Data Vital Signs (Past 12 Hours) Vital Signs Temp Pulse Pulse Resp BP Pulse Ox O2 Del Method 08/26/23 11:27 36.6 C 96 H 20 145/74 H 96 Room Air 08/26/23 10:22 80 08/26/23 07:50 36.2 C L 78 18 115/65 98 Nasal Cannula O2 Flow Rate 08/26/23 11:27 08/26/23 10:22 08/26/23 07:50 2 PG Care Time/CCT Total # of Minutes Spent Total Time Spent with Patient: Total time spent is greater than 50% in coordination of care (as documented) at patient's floor/unit and/or counseling patient: Coding Level of Care Code 23879 SUB INP/OBS CARE 2/35MIN Diagnoses SBO (small bowel obstruction) K56.609 Intra-abdominal abscess K65.1 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 History of DVT (deep vein thrombosis) Z86.718 Atrial fibrillation I48.91 Status post laparotomy Z98.890 GI bleed K92.2 Cholecystitis K81.9 Gastroesophageal reflux disease, unspecified whether esophagitis present K21.9 Esophagitis presence: esophagitis presence not specified History of intestinal obstruction Z87.19 Malnutrition E46 Physical deconditioning R53.81 Endotracheally intubated Z97.8 Shock R57.9 Hypernatremia E87.0 Acute blood loss anemia D62 (9) Gastroesophageal reflux disease Esophagitis presence: esophagitis presence not specified Qualified Code(s): K21.9 - Gastro-esophageal reflux disease without esophagitis
[2023-08-26] MEDS ORDERED: [UNRECOGNIZED DRUG - OTHER] IV SCH (16:00)
[2023-08-26] MEDS ORDERED: CENTRAL TPN IV SCH (16:00)
[2023-08-26] MEDS: [UNRECOGNIZED DRUG - OTHER] IV SCH (16:43)
[2023-08-26] MEDS: CENTRAL TPN IV SCH (16:43)
[2023-08-26] MEDS: CLINOLIPID 20% IV FAT EMULSION 250 ML IV SCH (16:43)
[2023-08-27] MEDS: LORATADINE 10 MG TAB PO ONE (05:07)
[2023-08-27 06:49] LABS: Hematocrit (blood only) 27.9 % (42.0-52.0); Hemoglobin 8.8 g/dl (14.0-18.0); Mean Corpuscular Hemoglobin 26.9 pg (25.0-34.0); Mean Corpuscular Hgb Conc 31.5 g/dL (32.0-36.0); Mean Corpuscular Volume 85.3 fL (80.0-100.0); Mean Platelet Volume 10.2 fL (9.4-12.4); Nucleated RBC # (auto) 0.02 K/uL (0.00-0.12); Nucleated RBC % (auto) 0.3 %; Platelet Count 300 K/uL (130-400); RDW Coefficient of Variation 14.5 % (11.5-14.5); RDW Standard Deviation 45.1 fL (36.4-46.3); Red Blood Count 3.27 M/uL (4.70-6.10); White Blood Count 7.57 K/ul (4.8-10.8)
[2023-08-27 07:52] LABS: BUN Creatinine Ratio 35.8 (10-20); Bilirubin,Total 0.3 mg/dl (0.2-1.0); Calcium 7.8 mg/dl (8.6-10.3); Creatinine Clr Calc Pharmacy 119.1 ml/min; Est GFR (African American) 111.8 ml/min; Est GFR (Non-African American) 96.5 ml/min; Magnesium 1.9 mg/dl (1.7-2.4); Phosphorus 2.7 mg/dl (2.5-4.9); Potassium 3.6 mmol/L (3.5-5.1)
--- NOTE | 2023-08-27 12:44 | Hospitalist Progress Note ---
Date of Service August 27, 2023 Assessment & Plan (1) SBO (small bowel obstruction): Plan: Patient had an episode of large-volume vomiting 08/19 CT abdomen showed small bowel obstruction with a transition point located at the site of small bowel anastomosis Patient had been made n.p.o. and was treated conservatively with IV fluids Had slowly improved, was tolerating full liquid diet. But started having severe abdominal pain on 08/23. Now NPO. On TPN Surgery on board (2) Intra-abdominal abscess: Plan: CT abdomen 08/19 shows increase in size in the right lower quadrant loculated fluid collection as well as progressive multiloculated small foci of gas and fluid collections within and deep to the left mid abdominal wall, consistent with progressive abscesses/fistulas. Per surgery, he is not a surgical candidate and there is no drainable abscess. Broadened antibiotic coverage from IV Unasyn to IV vancomycin and Zosyn. Reconsulted infectious disease Currently on IV Zosyn alone Leukocytosis resolved. Patient started having severe abdominal pain overnight 08/23. Surgery concerned about increased abdominal wall discharge. He is back to being NPO. TPN started per surgery team. 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 Surgery recommends n.p.o., TPN, wound VAC for several weeks. (4) History of DVT (deep vein thrombosis): Plan: Now with new acute DVT on both lower extremities, And possibly PE, given recent hypoxemia and worsening arrhythmias. Initially Started on heparin infusion, but now on hold on account of GI bleed updated (5) Atrial fibrillation: Plan: Patient has a hx of Afib, as seen in his [employer] note in 2019 Went into rapid ventricular rhythm during this hospitalization Could have been precipitated by possible pulmonary embolism given recent bilateral DVTs. Although unable to confirm PE because patient is too unstable to go for CT angio. Heparin on hold on account of GI bleed Continue amiodarone and metoprolol p.o. (6) Status post laparotomy: Plan: Initially patient was thought to have acute cholecystitis. Went to the OR for laparoscopic cholecystectomy was converted to exploratory laparotomy, bowel resection. 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 Wound VAC in place NG tube has been removed Continue wound care (7) GI bleed: Plan: Per nurse, patient is having dark stools Hemoglobin stayed stable Transfusion consent obtained and placed in chart in case he needs transfused Continue to hold heparin No indication for EGD or colonoscopy given recent abdominal surgery. Continue to monitor (8) Cholecystitis: Plan: Status post gallbladder removal Gallbladder fluid grew Klebsiella and Clostridium perfringens Switch from IV Unasyn to IV vancomycin and Zosyn (9) Gastroesophageal reflux disease: Plan: Was on famotidine on admisison, now on IV Protonix (10) History of intestinal obstruction: Plan: History of small bowel obstruction in the past (11) Malnutrition: Plan: TPN had been discontinued after 16 days, was tolerating full liquid diet after swallow eval. was made n.p.o. on 08/19. Then back on a full liquid diet. 08/23: N.p.o., TPN resumed (12) Physical deconditioning: Plan: Physically deconditioned Continue PT (13) Endotracheally intubated: Plan: Extubated 07/31 On room air now (14) Shock: Plan: resolved (15) Hypernatremia: Plan: Resolved (16) Acute blood loss anemia: Plan: From GI loss Transfuse if hemoglobin drops below 7 Consent obtained and placed in chart Plan VTE Prophylaxis: scd CODE STATUS: Full code Per surgery, the patient does not need to be in the hospital for recovery of his enterocutaneous fistula. The plan is to continue n.p.o., wound VAC, TPN, IV antibiotics for several weeks. Disposition planning has been initiated. However, the patient has had 2 acute episodes and this past week. Will monitor the patient over the weekend to make sure he is medically stable. This will allow manager of case some time to arrange for his disposition needs. Admission and Anticipated Discharge Date Admission Date: July 29, 2023 Subjective Patient denies chest pain or shortness of breath. No abdominal pain. Review of Systems Review of Systems: All systems reviewed & are unremarkable except as noted in Subjective Physical Exam Physical Exam: General: Awake, conversant. Appears frail looking Heart: S1, S2/regular rate and rhythm, no murmur rubs or gallops Lungs: Clear to auscultation. Normal effort. Abdomen: Wound VAC in place Extremities: No clubbing/cyanosis. 1+ pitting bilateral edema Behavior: Appropriate, cooperative Results & Data Results & Data Vital Signs (Past 12 Hours) Vital Signs Temp Pulse Pulse Resp BP Pulse Ox O2 Del Method 08/27/23 11:33 36.8 C 78 16 131/69 96 Nasal Cannula 08/27/23 08:45 80 08/27/23 08:04 36.5 C 78 16 127/62 95 Nasal Cannula O2 Flow Rate 08/27/23 11:33 1.5 08/27/23 08:45 08/27/23 08:04 1.5 Laboratory Results Abnormal lab results 08/26/23 08/27/23 08/27/23 Range/Units 17:03 03:07 05:36 RBC 3.27 L (4.70-6.10) M/uL Hgb 8.8 L (14.0-18.0) g/dl Hct 27.9 L (42.0-52.0) % MCHC 31.5 L (32.0-36.0) g/dL Sodium 135 L (136-145) mmol/L Creatinine 0.53 L (0.6-1.4) mg/dl BUN/Creatinine Ratio 35.8 H (10-20) Glucose 118 H (70-99(Fasting)) mg/dl POC Glucose 128 H 107 H (70-99) mg/dl Calcium 7.8 L (8.6-10.3) mg/dl 08/27/23 Range/Units 12:05 RBC (4.70-6.10) M/uL Hgb (14.0-18.0) g/dl Hct (42.0-52.0) % MCHC (32.0-36.0) g/dL Sodium (136-145) mmol/L Creatinine (0.6-1.4) mg/dl BUN/Creatinine Ratio (10-20) Glucose (70-99(Fasting)) mg/dl POC Glucose 126 H (70-99) mg/dl Calcium (8.6-10.3) mg/dl PG Care Time/CCT Total # of Minutes Spent Total Time Spent with Patient: Total time spent is greater than 50% in coordination of care (as documented) at patient's floor/unit and/or counseling patient: Coding Level of Care Code 29735 SUB INP/OBS CARE 2/35MIN Diagnoses SBO (small bowel obstruction) K56.609 Intra-abdominal abscess K65.1 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 History of DVT (deep vein thrombosis) Z86.718 Atrial fibrillation I48.91 Status post laparotomy Z98.890 GI bleed K92.2 Cholecystitis K81.9 Gastroesophageal reflux disease, unspecified whether esophagitis present K21.9 Esophagitis presence: esophagitis presence not specified History of intestinal obstruction Z87.19 Malnutrition E46 Physical deconditioning R53.81 Endotracheally intubated Z97.8 Shock R57.9 Hypernatremia E87.0 Acute blood loss anemia D62 (9) Gastroesophageal reflux disease Esophagitis presence: esophagitis presence not specified Qualified Code(s): K21.9 - Gastro-esophageal reflux disease without esophagitis
--- NOTE | 2023-08-27 16:06 | Surgery Progress Note ---
<Statement entered by Kenia Suarez, - 08/27/23 16:17> I have seen this patient this afternoon. He was sleepy at my visit with his at the bedside. States he has been up to the chair and works with PT. Continue current management Date of Service August 27, 2023 Assessment & Plan (1) Enterocutaneous fistula: Plan Patient stable with no new concerns or complaints overnight. Will continue to monitor for BM (last BM 08/21)- states patient is passing gas. cont NPO/VAC/TPN/ Can continue to allow ice chips/hard candy for comfort. potential transfer to SNF next week. Patient seen and examined with Dr. Suarez. Admission and Anticipated Discharge Date Admission Date: July 29, 2023 Subjective Patient sleeping, at bedside. She notes that he has been getting out of bed to chair. She states that he was talking to her earlier. Review of Systems Constitutional: as per Subjective / HPI; no fever and no chills Gastrointestinal: no nausea and no vomiting Physical Exam Constitutional: WD/WN, vitals as above Gastrointestinal (Abdomen): Wound vac in place, functioning well. Results & Data Vital Signs (Past 12 Hours) Vital Signs Temp Pulse Pulse Resp BP Pulse Ox O2 Del Method 08/27/23 11:33 36.8 C 78 16 131/69 96 Nasal Cannula 08/27/23 08:45 80 08/27/23 08:04 36.5 C 78 16 127/62 95 Nasal Cannula O2 Flow Rate 08/27/23 11:33 1.5 08/27/23 08:45 08/27/23 08:04 1.5 PG Care Time/CCT Total # of Minutes Spent Total Time Spent with Patient: Total time spent is greater than 50% in coordination of care (as documented) at patient's floor/unit and/or counseling patient: Coding Level of Care Code 67065 Post Operative Follow-Up Diagnoses 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
[2023-08-27] MEDS: CLINOLIPID 20% IV FAT EMULSION 250 ML IV SCH (16:27)
[2023-08-27] MEDS: [UNRECOGNIZED DRUG - OTHER] IV SCH (16:27)
[2023-08-27] MEDS: CENTRAL TPN IV SCH (16:27)
[2023-08-28 06:54] LABS: Hematocrit (blood only) 27.9 % (42.0-52.0); Hemoglobin 8.9 g/dl (14.0-18.0); Mean Corpuscular Hemoglobin 26.8 pg (25.0-34.0); Mean Corpuscular Hgb Conc 31.9 g/dL (32.0-36.0); Nucleated RBC # (auto) 0.02 K/uL (0.00-0.12); Nucleated RBC % (auto) 0.2 %; Platelet Count 298 K/uL (130-400); RDW Coefficient of Variation 14.3 % (11.5-14.5); RDW Standard Deviation 43.8 fL (36.4-46.3); Red Blood Count 3.32 M/uL (4.70-6.10); White Blood Count 8.69 K/ul (4.8-10.8)
[2023-08-28 07:58] LABS: Calcium 7.8 mg/dl (8.6-10.3); Creatinine Clr Calc Pharmacy 117.3 ml/min; Est GFR (Non-African American) 95.7 ml/min; Magnesium 1.8 mg/dl (1.7-2.4); Potassium 3.8 mmol/L (3.5-5.1)
--- NOTE | 2023-08-28 12:39 | Surgery Progress Note ---
<Statement entered by Kenia Suarez, DO - 08/28/23 13:15> I have seen and examined this patient this am. He was awake and very interactive this morning. He states he feels good. His arrived, spoke with her as well. They are please he is now having bowel movement. Date of Service August 28, 2023 Assessment & Plan (1) Enterocutaneous fistula: Plan Patient stable with no new concerns or complaints overnight. He denies abdominal pain. Multiple BMs overnight. cont NPO/VAC/TPN/ Can continue to allow ice chips/hard candy for comfort. potential transfer to SNF next week. Patient seen and examined with Dr. Suarez. Admission and Anticipated Discharge Date Admission Date: July 29, 2023 Subjective Ciaran is easily awakened upon entering the room. He denies any abdominal pain. He reports that he had several BMs overnight while in bed. He denies any nausea or vomiting. Review of Systems Constitutional: as per Subjective / HPI; no fever and no chills Gastrointestinal: no nausea and no vomiting Physical Exam Constitutional: WD/WN, vitals as above Gastrointestinal (Abdomen): Wound vac in place, functioning well. Results & Data Vital Signs (Past 12 Hours) Vital Signs Temp Pulse Pulse Resp BP Pulse Ox O2 Del Method 08/28/23 12:25 36.6 C 78 16 118/70 93 Room Air 08/28/23 08:32 36.4 C L 80 16 136/73 95 Room Air 08/28/23 07:38 86 08/28/23 03:11 37.2 C 89 20 154/76 H 94 Room Air, Nasal Cannula O2 Flow Rate 08/28/23 12:25 08/28/23 08:32 08/28/23 07:38 08/28/23 03:11 1.5 PG Care Time/CCT Total # of Minutes Spent Total Time Spent with Patient: Total time spent is greater than 50% in coordination of care (as documented) at patient's floor/unit and/or counseling patient: Coding Level of Care Code 58570 Post Operative Follow-Up Diagnoses 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
--- NOTE | 2023-08-28 13:54 | Hospitalist Progress Note ---
Date of Service August 28, 2023 Assessment & Plan (1) Intra-abdominal abscess: Plan: CT abdomen 08/19 shows increase in size in the right lower quadrant loculated fluid collection as well as progressive multiloculated small foci of gas and fluid collections within and deep to the left mid abdominal wall, consistent with progressive abscesses/fistulas. Per surgery, he is not a surgical candidate and there is no drainable abscess. Broadened antibiotic coverage from IV Unasyn to IV vancomycin and Zosyn. Reconsulted infectious disease Currently on IV Zosyn alone Leukocytosis resolved. Patient started having severe abdominal pain overnight 08/23. Surgery concerned about increased abdominal wall discharge. He is back to being NPO. TPN started per surgery team. 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 Surgery recommends n.p.o., TPN, wound VAC for several weeks. (3) SBO (small bowel obstruction): Plan: Patient had an episode of large-volume vomiting 08/19 CT abdomen showed small bowel obstruction with a transition point located at the site of small bowel anastomosis Patient had been made n.p.o. and was treated conservatively with IV fluids Had slowly improved, was tolerating full liquid diet. But started having severe abdominal pain on 08/23. Now NPO. On TPN Surgery on board Patient is having bowel movements (4) History of DVT (deep vein thrombosis): Plan: Now with new acute DVT on both lower extremities, And possibly PE, given recent hypoxemia and worsening arrhythmias. 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 Although unable to confirm PE because patient is too unstable to go for CT angio. Heparin on hold on account of GI bleed Continue amiodarone and metoprolol p.o. (6) Status post laparotomy: Plan: Initially patient was thought to have acute cholecystitis. Went to the OR for laparoscopic cholecystectomy was converted to exploratory laparotomy, bowel resection. 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 Wound VAC in place NG tube has been removed Continue wound care (7) GI bleed: Plan: Per nurse, patient is having dark stools Hemoglobin stayed stable Transfusion consent obtained and placed in chart in case he needs transfused Continue to hold heparin No indication for EGD or colonoscopy given recent abdominal surgery. Continue to monitor (8) Cholecystitis: Plan: Status post gallbladder removal Gallbladder fluid grew Klebsiella and Clostridium perfringens Switch from IV Unasyn to IV vancomycin and Zosyn (9) Gastroesophageal reflux disease: Plan: Was on famotidine on admisison, now on IV Protonix (10) History of intestinal obstruction: Plan: History of small bowel obstruction in the past (11) Malnutrition: Plan: TPN had been discontinued after 16 days, was tolerating full liquid diet after swallow eval. was made n.p.o. on 08/19. Then back on a full liquid diet. 08/23: N.p.o., TPN resumed (12) Physical deconditioning: Plan: Physically deconditioned Continue PT (13) Endotracheally intubated: Plan: Extubated 07/31 On room air now (14) Shock: Plan: resolved (15) Hypernatremia: Plan: Resolved (16) Acute blood loss anemia: Plan: From GI loss Transfuse if hemoglobin drops below 7 Consent obtained and placed in chart Plan VTE Prophylaxis: scd CODE STATUS: Full code Per surgery, the patient does not need to be in the hospital for recovery of his enterocutaneous fistula. The plan is to continue n.p.o., wound VAC, TPN, IV antibiotics for several weeks. Disposition planning has been initiated. However, the patient has had 2 acute episodes and this past week. Will monitor the patient over the weekend to make sure he is medically stable. This will allow case folder some time to arrange for his disposition needs. Admission and Anticipated Discharge Date Admission Date: July 29, 2023 Subjective Patient feels well. Denies chest pain or shortness of breath. He had bowel mo vements overnight. No abdominal pain. Per nurses report, the stools were dark in color. H&H stable. Review of Systems Review of Systems: All systems reviewed & are unremarkable except as noted in Subjective Physical Exam Physical Exam: General: Awake, conversant. Appears frail looking Heart: S1, S2/regular rate and rhythm, no murmur rubs or gallops Lungs: Clear to auscultation. Normal effort. Abdomen: Wound VAC in place Extremities: No clubbing/cyanosis. 1+ pitting bilateral edema Behavior: Appropriate, cooperative Results & Data Results & Data Vital Signs (Past 12 Hours) Vital Signs Temp Pulse Pulse Resp BP Pulse Ox O2 Del Method 08/28/23 12:25 36.6 C 78 16 118/70 93 Room Air 08/28/23 08:32 36.4 C L 80 16 136/73 95 Room Air 08/28/23 08:00 Nasal Cannula 08/28/23 07:38 86 08/28/23 03:11 37.2 C 89 20 154/76 H 94 Room Air, Nasal Cannula O2 Flow Rate 08/28/23 12:25 08/28/23 08:32 08/28/23 08:00 2 08/28/23 07:38 08/28/23 03:11 1.5 Laboratory Results Abnormal lab results 08/28/23 08/28/23 08/28/23 Range/Units 03:46 06:19 12:17 RBC 3.32 L (4.70-6.10) M/uL Hgb 8.9 L (14.0-18.0) g/dl Hct 27.9 L (42.0-52.0) % MCHC 31.9 L (32.0-36.0) g/dL Sodium 134 L (136-145) mmol/L Creatinine 0.54 L (0.6-1.4) mg/dl BUN/Creatinine Ratio 37.0 H (10-20) Glucose 123 H (70-99(Fasting)) mg/dl POC Glucose 122 H 131 H (70-99) mg/dl Calcium 7.8 L (8.6-10.3) mg/dl PG Care Time/CCT Total # of Minutes Spent Total Time Spent with Patient: Total time spent is greater than 50% in coordination of care (as documented) at patient's floor/unit and/or counseling patient: Coding Level of Care Code 97156 SUB INP/OBS CARE 2/35MIN Diagnoses Intra-abdominal abscess K65.1 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 SBO (small bowel obstruction) K56.609 History of DVT (deep vein thrombosis) Z86.718 Atrial fibrillation I48.91 Status post laparotomy Z98.890 GI bleed K92.2 Cholecystitis K81.9 Gastroesophageal reflux disease, unspecified whether esophagitis present K21.9 Esophagitis presence: esophagitis presence not specified History of intestinal obstruction Z87.19 Malnutrition E46 Physical deconditioning R53.81 Endotracheally intubated Z97.8 Shock R57.9 Hypernatremia E87.0 Acute blood loss anemia D62 (9) Gastroesophageal reflux disease Esophagitis presence: esophagitis presence not specified Qualified Code(s): K21.9 - Gastro-esophageal reflux disease without esophagitis
[2023-08-28] MEDS: [UNRECOGNIZED DRUG - OTHER] IV SCH (16:06)
[2023-08-28] MEDS: CENTRAL TPN IV SCH (16:06)
[2023-08-28] MEDS: CLINOLIPID 20% IV FAT EMULSION 250 ML IV SCH (16:07)
[2023-08-28] MEDS: ACETAMINOPHEN 1,000 MG/100 ML VIAL IV PRN (20:33)
[2023-08-29 06:48] LABS: BUN Creatinine Ratio 36.8 (10-20); Calcium 8.3 mg/dl (8.6-10.3); Creatinine Clr Calc Pharmacy 111.3 ml/min; Est GFR (African American) 108.5 ml/min; Est GFR (Non-African American) 93.6 ml/min; Magnesium 2.1 mg/dl (1.7-2.4); Phosphorus 3.4 mg/dl (2.5-4.9); Potassium 4.5 mmol/L (3.5-5.1)
--- NOTE | 2023-08-29 08:41 | Pharmacy Report ---
Pharmacy PN Follow-up Note - Date of Service August 29, 2023 - Subjective Patient is currently on day #[] of [PPN][TPN] for [Indication]. - Objective Height & Weight (Last Documented) Height 5 ft 9 in Weight 101.5 kg Diet Order(s) 08/24/23 07:44 NPO Intake & Ouput (24hrs) 08/28/23 08/29/23 08/30/23 06:59 06:59 06:59 Intake Total 2410.693 / 2410.693 2544.87 / 2544.87 100 / 100 Output Total 1910 / 1910 2301 / 2301 Balance 500.693 / 500.693 243.87 / 243.87 100 / 100 Selected Laboratory Results 08/29/23 05:48 Sodium 136 Potassium 4.5 Chloride 105 Carbon Dioxide 28 Anion Gap 3 BUN 21 Creatinine 0.57 L Est GFR ( Amer) 108.5 Est GFR (Non-Af Amer) 93.6 BUN/Creatinine Ratio 36.8 H Glucose 113 H Calcium 8.3 L Phosphorus 3.4 Magnesium 2.1 - Assessment & Plan Assessment: * Patient remains NPO. * Macronutrients at goal. * Potassium and Phosphorus both increased on this AM's labs. Still within normal limits but will back off on dose of both of these electrolytes. Will also reduce magnesium slightly. * Renal function stable. Plan: * For Day #6 of *resumed* TPN administration, the following will be ordered: * Macronutrients: * Amino Acids: 144 grams/day * Dextrose: 252 grams/day * Lipids: 50 grams/day * Micronutrients: * Sodium chloride: 125 mEq/day * Sodium phosphate: 30 mMol/day * Potassium phosphate: 30 mMol/day * Magnesium sulfate: 8.12 mEq/day * Multivitamins: 10 mL/day * Trace elements: 1 mL/day * Thiamine: 100 mg/day * Folic Acid: 1 mg/day * Total volume of 1884 mL will be infused over 24 hours and will provide 1933 kcal/day * Labs will be ordered per PN protocol. * Pharmacy will follow and adjust PN orders on a daily basis. Thank you!
--- NOTE | 2023-08-29 11:16 | Surgery Progress Note ---
Date of Service August 29, 2023 Assessment & Plan (1) Hx laparoscopic cholecystectomy: Plan Is progressing well. Remains afebrile, hemodynamically stable and without leukocytosis. Continue TPN orders per medicine Steiner catheter may be removed if okay with medicine Wound VAC dressing managed per wound care Chloraseptic spray for sore throat. May continue to have ice chips. Patient pending transfer to rehab Continue with ambulation and out of bed Patient's H/H has been stable over the weekend may consider resuming DVT prophylaxis, per medicine Admission and Anticipated Discharge Date Admission Date: July 29, 2023 Subjective I have seen and examined Mr. Edge this am. He continues to do quite well. This am he does mention his throat feeling a little sore. Of note, he was mouth breathing when we walked in. He denies N/V/F/C, has bowel function. Physical Exam Constitutional: + obese; not ill appearing, not in distr ess and not diaphoretic Respiratory: normal respiratory effort; no respiratory distress, no labored breathing and does not use accessory muscles Gastrointestinal (Abdomen): Wound vac is in place. I do not seen any signif Steiner catheter with 2L recorded last 24 hours Results & Data Vital Signs (Past 12 Hours) Vital Signs Temp Pulse Pulse Resp BP Pulse Ox O2 Del Method 08/29/23 10:10 78 08/29/23 07:00 36.6 C 85 18 126/69 94 Room Air 08/29/23 03:30 36.3 C L 76 20 122/73 97 Room Air 08/28/23 23:20 36.6 C 82 14 136/88 95 Nasal Cannula O2 Flow Rate 08/29/23 10:10 08/29/23 07:00 08/29/23 03:30 08/28/23 23:20 2 PG Care Time/CCT Total # of Minutes Spent Total Time Spent with Patient: Total time spent is greater than 50% in coordination of care (as documented) at patient's floor/unit and/or counseling patient: Coding Level of Care Code 90074 Post Operative Follow-Up Diagnoses Hx laparoscopic cholecystectomy Z90.49
[2023-08-29] MEDS: CHLORASEPTIC (PHENOL) 1.4% SOLN 180 ML BTL MT PRN (13:34)
--- NOTE | 2023-08-29 14:20 | Hospitalist Progress Note ---
Date of Service August 29, 2023 Assessment & Plan (1) Intra-abdominal abscess: Plan: CT abdomen 08/19 shows increase in size in the right lower quadrant loculated fluid collection as well as progressive multiloculated small foci of gas and fluid collections within and deep to the left mid abdominal wall, consistent with progressive abscesses/fistulas. Per surgery, he is not a surgical candidate and there is no drainable abscess. Broadened antibiotic coverage from IV Unasyn to IV vancomycin and Zosyn. Reconsulted infectious disease Currently on IV Zosyn alone Leukocytosis resolved. Patient started having severe abdominal pain overnight 08/23. Surgery concerned about increased abdominal wall discharge. He is back to being NPO. TPN started per surgery team. 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 Surgery recommends n.p.o., TPN, wound VAC for several weeks. (3) SBO (small bowel obstruction): Plan: Patient had an episode of large-volume vomiting 08/19 CT abdomen showed small bowel obstruction with a transition point located at the site of small bowel anastomosis Patient had been made n.p.o. and was treated conservatively with IV fluids Had slowly improved, was tolerating full liquid diet. But started having severe abdominal pain on 08/23. Now NPO. On TPN Surgery on board Patient is having bowel movements (4) History of DVT (deep vein thrombosis): Plan: Now with new acute DVT on both lower extremities, And possibly PE, given recent hypoxemia and worsening arrhythmias. 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 Although unable to confirm PE because patient is too unstable to go for CT angio. Heparin on hold on account of GI bleed Continue amiodarone and metoprolol p.o. Awaiting repeat swallow eval (6) Status post laparotomy: Plan: Initially patient was thought to have acute cholecystitis. Went to the OR for laparoscopic cholecystectomy was converted to exploratory laparotomy, bowel resection. 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 Wound VAC in place NG tube has been removed Continue wound care (7) GI bleed: Plan: Per nurse, patient is having dark stools Hemoglobin stayed stable Transfusion consent obtained and placed in chart in case he needs transfused Continue to hold heparin No indication for EGD or colonoscopy given recent abdominal surgery. Continue to monitor (8) Cholecystitis: Plan: Status post gallbladder removal Gallbladder fluid grew Klebsiella and Clostridium perfringens Continue IV Zosyn (9) Gastroesophageal reflux disease: Plan: Was on famotidine on admisison, now on IV Protonix (10) History of intestinal obstruction: Plan: History of small bowel obstruction in the past (11) Malnutrition: Plan: TPN had been discontinued after 16 days, was tolerating full liquid diet after swallow eval. was made n.p.o. on 08/19. Then back on a full liquid diet. 08/23: N.p.o., TPN resumed Swallow eval ordered. Patient is coughing ice chips and meds. (12) Physical deconditioning: Plan: Physically deconditioned Continue PT (13) Endotracheally intubated: Plan: Extubated 07/31 On room air now (14) Shock: Plan: resolved (15) Hypernatremia: Plan: Resolved (16) Acute blood loss anemia: Plan: From GI loss Transfuse if hemoglobin drops below 7 Consent obtained and placed in chart Plan VTE Prophylaxis: scd CODE STATUS: Full code Per surgery, the patient does not need to be in the hospital for recovery of his enterocutaneous fistula. The plan is to continue n.p.o., wound VAC, TPN, IV antibiotics for several weeks. Disposition planning has been initiated. Patient has stayed stable through the weekend. Disposition planning in progress. Swallow eval pending as the patient is coughing with p.o. medications Admission and Anticipated Discharge Date Admission Date: July 29, 2023 Subjective Patient denies abdominal pain. Per nurse, he is coughing after medications and ice chips. Swallow eval requested. Review of Systems Review of Systems: All systems reviewed & are unremarkable except as noted in Subjective Physical Exam Physical Exam: General: Awake, conversant. Appears frail looking Heart: S1, S2/regular rate and rhythm, no murmur rubs or gallops Lungs: Clear to auscultation. Normal effort. Abdomen: Wound VAC in place Extremities: No clubbing/cyanosis. 1+ pitting bilateral edema Behavior: Appropriate, cooperative Results & Data Results & Data Vital Signs (Past 12 Hours) Vital Signs Temp Pulse Pulse Resp BP Pulse Ox O2 Del Method 08/29/23 11:47 36.8 C 92 H 20 164/73 H 95 Room Air 08/29/23 11:29 Nasal Cannula 08/29/23 10:10 78 08/29/23 07:00 36.6 C 85 18 126/69 94 Room Air 08/29/23 03:30 36.3 C L 76 20 122/73 97 Room Air O2 Flow Rate 08/29/23 11:47 08/29/23 11:29 2 08/29/23 10:10 08/29/23 07:00 08/29/23 03:30 Laboratory Results Abnormal lab results 08/28/23 08/29/23 08/29/23 Range/Units 19:48 03:17 05:48 Creatinine 0.57 L (0.6-1.4) mg/dl BUN/Creatinine Ratio 36.8 H (10-20) Glucose 113 H (70-99(Fasting)) mg/dl POC Glucose 109 H 110 H (70-99) mg/dl Calcium 8.3 L (8.6-10.3) mg/dl PG Care Time/CCT Total # of Minutes Spent Total Time Spent with Patient: Total time spent is greater than 50% in coordination of care (as documented) at patient's floor/unit and/or counseling patient: Coding Level of Care Code 22694 SUB INP/OBS CARE 2/35MIN Diagnoses Intra-abdominal abscess K65.1 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 SBO (small bowel obstruction) K56.609 History of DVT (deep vein thrombosis) Z86.718 Atrial fibrillation I48.91 Status post laparotomy Z98.890 GI bleed K92.2 Cholecystitis K81.9 Gastroesophageal reflux disease, unspecified whether esophagitis present K21.9 Esophagitis presence: esophagitis presence not specified History of intestinal obstruction Z87.19 Malnutrition E46 Physical deconditioning R53.81 Endotracheally intubated Z97.8 Shock R57.9 Hypernatremia E87.0 Acute blood loss anemia D62 (9) Gastroesophageal reflux disease Esophagitis presence: esophagitis presence not specified Qualified Code(s): K21.9 - Gastro-esophageal reflux disease without esophagitis
[2023-08-29] MEDS: CENTRAL TPN IV SCH (15:43)
[2023-08-29] MEDS: [UNRECOGNIZED DRUG - OTHER] IV SCH (15:43)
[2023-08-29] MEDS: CLINOLIPID 20% IV FAT EMULSION 250 ML IV SCH (15:43)
[2023-08-30 06:23] LABS: Hematocrit (blood only) 30.1 % (42.0-52.0); Hemoglobin 9.6 g/dl (14.0-18.0)
[2023-08-30 06:35] LABS: BUN Creatinine Ratio 34.4 (10-20); Calcium 8.5 mg/dl (8.6-10.3); Est GFR (African American) 105.5 ml/min; Est GFR (Non-African American) 91.1 ml/min; Phosphorus 2.8 mg/dl (2.5-4.9); Potassium 3.9 mmol/L (3.5-5.1)
--- NOTE | 2023-08-30 08:43 | Surgery Progress Note ---
Date of Service August 30, 2023 Assessment & Plan (1) Hx laparoscopic cholecystectomy: Plan: no new issues vac currently holding seal. no significant output noted in canister denies abdominal pain/n/v some + dark stoo notedl. hbg is stable at 9.6 (8/4). vital stable continue NPO/ice and TPN via picc line pt/ot, case mngmt, dispo planning doing well. at bedside. vac drainage continues to be relatively light. no pain does c/o of swollen RUE which has the PICC...will order US to r/o dvt. potential transfer to [place] (2) Enterocutaneous fistula: Admission and Anticipated Discharge Date Admission Date: July 29, 2023 Subjective Patient feeling okay. No complaints. No abdominal pain, nausea/vomiting. + bowel function Physical Exam Physical Exam: awake, no distress Respiratory: normal respiratory effort Gastrointestinal (Abdomen): Percussion/Palpation: abdomen soft; abdomen nontender vac in place currently holding good seal Results & Data Vital Signs (Past 12 Hours) Vital Signs Temp Pulse Pulse Resp BP Pulse Ox O2 Del Method 08/30/23 08:20 88 08/30/23 07:51 98.2 F 90 18 130/73 96 Room Air 08/30/23 04:24 97.7 F 88 18 139/77 97 Room Air 08/29/23 22:20 97.5 F L 85 18 134/72 95 Room Air PG Care Time/CCT Total # of Minutes Spent Total Time Spent with Patient: Total time spent is greater than 50% in coordination of care (as documented) at patient's floor/unit and/or counseling patient: Coding Level of Care Code 55309 Post Operative Follow-Up Diagnoses Hx laparoscopic cholecystectomy Z90.49 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
--- NOTE | 2023-08-30 15:34 | Hospitalist Progress Note ---
Date of Service August 30, 2023 Assessment & Plan (1) Intra-abdominal abscess: Plan: CT abdomen 08/19 shows increase in size in the right lower quadrant loculated fluid collection as well as progressive multiloculated small foci of gas and fluid collections within and deep to the left mid abdominal wall, consistent with progressive abscesses/fistulas. Per surgery, he is not a surgical candidate and there is no drainable abscess. Broadened antibiotic coverage from IV Unasyn to IV vancomycin and Zosyn. Reconsulted infectious disease Currently on IV Zosyn alone. Per ID, check weekly CBC with differential and CMP while on IV antibiotics. He will need 4 to 6 weeks of antibiotics per ID notes on 08/11. That would end on either 09/08 or 09/22 Leukocytosis resolved. Patient started having severe abdominal pain overnight 08/23. Surgery concerned about increased abdominal wall discharge. He is back to being NPO. TPN started per surgery team. 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 Surgery recommends n.p.o., TPN, wound VAC for several weeks. (3) SBO (small bowel obstruction): Plan: Patient had an episode of large-volume vomiting 08/19 CT abdomen showed small bowel obstruction with a transition point located at the site of small bowel anastomosis Patient had been made n.p.o. and was treated conservatively with IV fluids Had slowly improved, was tolerating full liquid diet. But started having severe abdominal pain on 08/23. Now NPO. On TPN Surgery on board Patient is having bowel movements (4) History of DVT (deep vein thrombosis): Plan: Now with new acute DVT on both lower extremities, And possibly PE, given recent hypoxemia and worsening arrhythmias. 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 Although unable to confirm PE because patient is too unstable to go for CT angio. Heparin on hold on account of GI bleed Continue amiodarone and metoprolol p.o. Awaiting repeat swallow eval (6) Status post laparotomy: Plan: Initially patient was thought to have acute cholecystitis. Went to the OR for laparoscopic cholecystectomy was converted to exploratory laparotomy, bowel res ection. 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 Wound VAC in place NG tube has been removed Continue wound care (7) GI bleed: Plan: Per nurse, patient is having dark stools Hemoglobin stayed stable Transfusion consent obtained and placed in chart in case he needs transfused Continue to hold heparin No indication for EGD or colonoscopy given recent abdominal surgery. Continue to monitor (8) Cholecystitis: Plan: Status post gallbladder removal Gallbladder fluid grew Klebsiella and Clostridium perfringens Continue IV Zosyn (9) Gastroesophageal reflux disease: Plan: Was on famotidine on admisison, now on IV Protonix (10) History of intestinal obstruction: Plan: History of small bowel obstruction in the past (11) Malnutrition: Plan: TPN had been discontinued after 16 days, was tolerating full liquid diet after swallow eval. was made n.p.o. on 08/19. Then back on a full liquid diet. 08/23: N.p.o., TPN resumed Patient passed swallow eval. He will be able to take his meds by mouth (12) Physical deconditioning: Plan: Physically deconditioned Continue PT (13) Endotracheally intubated: Plan: Extubated 07/31 On room air now (14) Shock: Plan: resolved (15) Hypernatremia: Plan: Resolved (16) Acute blood loss anemia: Plan: From GI loss Transfuse if hemoglobin drops below 7 Consent obtained and placed in chart Plan VTE Prophylaxis: scd CODE STATUS: Full code Per surgery, the patient does not need to be in the hospital for recovery of his enterocutaneous fistula. The plan is to continue n.p.o., wound VAC, TPN, IV antibiotics for several weeks. Disposition planning has been initiated. Patient has stayed stable through the weekend. Disposition planning in progress. Passed swallow eval. Admission and Anticipated Discharge Date Admission Date: July 29, 2023 Subjective Patient feels well. Denies chest pain or shortness of breath. Denies abdominal pain. He passed the swallow test! Review of Systems Review of Systems: All systems reviewed & are unremarkable except as noted in Subjective Physical Exam Physical Exam: General: Awake, conversant. Appears frail looking Heart: S1, S2/regular rate and rhythm, no murmur rubs or gallops Lungs: Clear to auscultation. Normal effort. Abdomen: Wound VAC in place Extremities: No clubbing/cyanosis. 1+ pitting bilateral edema Behavior: Appropriate, cooperative Results & Data Results & Data Vital Signs (Past 12 Hours) Vital Signs Temp Pulse Pulse Resp BP Pulse Ox O2 Del Method 08/30/23 11:47 36.5 C 107 H 18 125/64 97 Room Air 08/30/23 11:44 Room Air 08/30/23 08:20 88 08/30/23 07:51 36.8 C 90 18 130/73 96 Room Air 08/30/23 04:24 36.5 C 88 18 139/77 97 Room Air Laboratory Results Abnormal lab results 08/30/23 Range/Units 05:55 Hgb 9.6 L (14.0-18.0) g/dl Hct 30.1 L (42.0-52.0) % Sodium 134 L (136-145) mmol/L BUN/Creatinine Ratio 34.4 H (10-20) Glucose 121 H (70-99(Fasting)) mg/dl Calcium 8.5 L (8.6-10.3) mg/dl PG Care Time/CCT Total # of Minutes Spent Total Time Spent with Patient: Total time spent is greater than 50% in coordination of care (as documented) at patient's floor/unit and/or counseling patient: Coding Level of Care Code 01799 SUB INP/OBS CARE 2/35MIN Diagnoses Intra-abdominal abscess K65.1 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 SBO (small bowel obstruction) K56.609 History of DVT (deep vein thrombosis) Z86.718 Atrial fibrillation I48.91 Status post laparotomy Z98.890 GI bleed K92.2 Cholecystitis K81.9 Gastroesophageal reflux disease, unspecified whether esophagitis present K21.9 Esophagitis presence: esophagitis presence not specified History of intestinal obstruction Z87.19 Malnutrition E46 Physical deconditioning R53.81 Endotracheally intubated Z97.8 Shock R57.9 Hypernatremia E87.0 Acute blood loss anemia D62 (9) Gastroesophageal reflux disease Esophagitis presence: esophagitis presence not specified Qualified Code(s): K21.9 - Gastro-esophageal reflux disease without esophagitis
[2023-08-30] MEDS: CLINOLIPID 20% IV FAT EMULSION 250 ML IV SCH (16:02)
[2023-08-30] MEDS: [UNRECOGNIZED DRUG - OTHER] IV SCH (16:02)
[2023-08-30] MEDS: CENTRAL TPN IV SCH (16:02)
--- NOTE | 2023-08-30 16:29 | Ultrasound Report ---
ULTRASOUND RIGHT UPPER EXTREMITY VENOUS CLINICAL HISTORY: Right arm swelling. COMPARISON STUDY: No prior. TECHNIQUE: Real-time, grayscale, and color Doppler sonography of the deep veins of the right upper ex tremity is performed. Compression and augmentation were utilized. FINDINGS: There is no sonographic evidence of deep venous thrombosis identified in the right upper ex tremity. A PICC line is in place from basilic approach. The right internal jugular, axillary, and bra chial veins are patent and normally compressible. Normal venous waveforms and augmentation are seen w ithin the right subclavian vein. There is occlusive superficial thrombus identified in the basilic ve in around the PICC line. This measures less than 3 cm in length. There is also superficial thrombus i dentified in the forearm within the cephalic vein. This likely measures greater than 5 cm in length. The visualized radial and ulnar veins are patent. IMPRESSION: 1. There is no sonographic evidence of deep venous thrombosis identified in the right upper extremity . 2. There is occlusive superficial venous thrombosis in the basilic vein around the PICC line. 3. There is also superficial venous thrombus in the cephalic vein in the forearm. ACT 112: Negative or not required by law. Electronically signed by: Behzad Parmar M.D. 08/30/2023 4:27 PM
[2023-08-31 08:53] LABS: BUN Creatinine Ratio 38.6 (10-20); Calcium 8.2 mg/dl (8.6-10.3); Creatinine Clr Calc Pharmacy 111.3 ml/min; Est GFR (African American) 108.5 ml/min; Est GFR (Non-African American) 93.6 ml/min; Phosphorus 2.9 mg/dl (2.5-4.9); Potassium 4.1 mmol/L (3.5-5.1)
--- NOTE | 2023-08-31 13:39 | Surgery Progress Note ---
Date of Service August 31, 2023 Assessment & Plan (1) Hx laparoscopic cholecystectomy: Plan: doing well plan transfer to [place] tomorrow f/u with me in 10-14 days (2) Enterocutaneous fistula: Admission and Anticipated Discharge Date Admission Date: July 29, 2023 Subjective pt seen. feeling ok. no new complaints. Physical Exam Physical Exam: alert. nad abd: vac in place. minimal output. Results & Data Vital Signs (Past 12 Hours) Vital Signs Temp Pulse Pulse Resp BP Pulse Ox O2 Del Method 08/31/23 11:30 36.4 C L 78 18 129/72 93 Room Air 08/31/23 07:55 Room Air 08/31/23 07:36 36.4 C L 78 18 141/73 H 95 Room Air 08/31/23 07:03 72 08/31/23 03:33 36.4 C L 80 18 125/73 95 Room Air PG Care Time/CCT Total # of Minutes Spent Total Time Spent with Patient: Total time spent is greater than 50% in coordination of care (as documented) at patient's floor/unit and/or counseling patient: Coding Level of Care Code 27698 Post Operative Follow-Up Diagnoses Hx laparoscopic cholecystectomy Z90.49 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
--- NOTE | 2023-08-31 14:27 | Hospitalist Progress Note ---
Date of Service August 31, 2023 Assessment & Plan (1) Intra-abdominal abscess: Plan: CT abdomen 08/19 shows increase in size in the right lower quadrant loculated fluid collection as well as progressive multiloculated small foci of gas and fluid collections within and deep to the left mid abdominal wall, consistent with progressive abscesses/fistulas. Per surgery, he is not a surgical candidate and there is no drainable abscess. Broadened antibiotic coverage from IV Unasyn to IV vancomycin and Zosyn. Reconsulted infectious disease Currently on IV Zosyn alone. Per ID, check weekly CBC with differential and CMP while on IV antibiotics. He will need 4 to 6 weeks of antibiotics per ID notes on 08/11. That would end on either 09/08 or 09/22. End date will be decided on by surgery upon follow-up Leukocytosis resolved. Patient started having severe abdominal pain overnight 08/23. Surgery concerned about increased abdominal wall discharge. He is back to being NPO. TPN started per surgery team. 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 Surgery recommends n.p.o., TPN, wound VAC for several weeks. (3) SBO (small bowel obstruction): Plan: Patient had an episode of large-volume vomiting 08/19 CT abdomen showed small bowel obstruction with a transition point located at the site of small bowel anastomosis Patient had been made n.p.o. and was treated conservatively with IV fluids Had slowly improved, was tolerating full liquid diet. But started having severe abdominal pain on 08/23. Now NPO. On TPN Surgery on board Patient is having bowel movements (4) History of DVT (deep vein thrombosis): Plan: Now with new acute DVT on both lower extremities, And possibly PE, given recent hypoxemia and worsening arrhythmias. Initially Started on heparin infusion, but now on hold on account of GI bleed updated Patient is DNR/DNI On 08/29 patient was found to have a superficial vein thrombosis at the PICC line site. The PICC line is absolutely necessary for IV antibiotics and TPN. And the PICC line is functional. Decision was made to keep the PICC line in place. We would not treat a superficial vein thrombosis with anticoagulation and he is not a candidate for anticoagulation anyways. 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 Although unable to confirm PE because patient is too unstable to go for CT angio. Heparin on hold on account of GI bleed Continue amiodarone and metoprolol p.o. Patient passed swallow test and thus will be able to continue taking his p.o. meds by mouth. (6) Status post laparotomy: Plan: Initially patient was thought to have acute cholecystitis. Went to the OR for laparoscopic cholecystectomy was converted to exploratory laparotomy, bowel resection. 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 Wound VAC in place Continue wound care (7) GI bleed: Plan: Patient had dark stools and GI bleed when he was started on heparin drip to treat DVT. Heparin drip was discontinued. No indication for EGD or colonoscopy given recent abdominal surgery. After the heparin drip was held, the GI bleed stabilized. (8) Cholecystitis: Plan: Status post gallbladder removal Gallbladder fluid grew Klebsiella and Clostridium perfringens Continue IV Zosyn (9) Gastroesophageal reflux disease: Plan: Was on famotidine on admisison, now on IV Protonix (10) History of intestinal obstruction: Plan: History of small bowel obstruction in the past (11) Malnutrition: Plan: Patient is now on TPN as he is going to be n.p.o. for weeks (12) Physical deconditioning: Plan: Physically deconditioned Continue PT (13) Endotracheally intubated: Plan: Extubated 5/6 On room air now (14) Shock: Plan: resolved (15) Hypernatremia: Plan: Resolved (16) Acute blood loss anemia: Plan: From GI loss Transfuse if hemoglobin drops below 7 Consent obtained and placed in chart Plan VTE Prophylaxis: scd CODE STATUS: Full code Likely discharge tomorrow Admission and Anticipated Discharge Date Admission Date: July 29, 2023 Subjective Patient is sitting at the bedside chair. Smiling. Accompanied by and other family members. I addressed CODE STATUS with the patient and his today. He wishes to be a DNR/DNI. Review of Systems Review of Systems: All systems reviewed & are unremarkable except as noted in Subjective Physical Exam Physical Exam: General: Awake, conversant. Appears frail looking Heart: S1, S2/regular rate and rhythm, no murmur rubs or gallops Lungs: Clear to auscultation. Normal effort. Abdomen: Wound VAC in place Extremities: No clubbing/cyanosis. 1+ pitting bilateral edema Behavior: Appropriate, cooperative Results & Data Results & Data Vital Signs (Past 12 Hours) Vital Signs Temp Pulse Pulse Resp BP Pulse Ox O2 Del Method 08/31/23 11:30 36.4 C L 78 18 129/72 93 Room Air 08/31/23 07:55 Room Air 08/31/23 07:36 36.4 C L 78 18 141/73 H 95 Room Air 08/31/23 07:03 72 08/31/23 03:33 36.4 C L 80 18 125/73 95 Room Air Laboratory Results Abnormal lab results 08/31/23 Range/Units 08:01 Creatinine 0.57 L (0.6-1.4) mg/dl BUN/Creatinine Ratio 38.6 H (10-20) Glucose 115 H (70-99(Fasting)) mg/dl Calcium 8.2 L (8.6-10.3) mg/dl PG Care Time/CCT Total # of Minutes Spent Total Time Spent with Patient: Total time spent is greater than 50% in coordination of care (as documented) at patient's floor/unit and/or counseling patient: Coding Level of Care Code 30269 SUB INP/OBS CARE 2/35MIN Diagnoses Intra-abdominal abscess K65.1 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 SBO (small bowel obstruction) K56.609 History of DVT (deep vein thrombosis) Z86.718 Atrial fibrillation I48.91 Status post laparotomy Z98.890 GI bleed K92.2 Cholecystitis K81.9 Gastroesophageal reflux disease, unspecified whether esophagitis present K21.9 Esophagitis presence: esophagitis presence not specified History of intestinal obstruction Z87.19 Malnutrition E46 Physical deconditioning R53.81 Endotracheally intubated Z97.8 Shock R57.9 Hypernatremia E87.0 Acute blood loss anemia D62 (9) Gastroesophageal reflux disease Esophagitis presence: esophagitis presence not specified Qualified Code(s): K21.9 - Gastro-esophageal reflux disease without esophagitis
[2023-08-31] MEDS: [UNRECOGNIZED DRUG - OTHER] IV SCH (16:27)
[2023-08-31] MEDS: CENTRAL TPN IV SCH (16:27)
[2023-08-31] MEDS: CLINOLIPID 20% IV FAT EMULSION 250 ML IV SCH (16:27)
[2023-08-31] MEDS: LORazepam 0.5 MG TAB PO ONE (19:42)
--- NOTE | 2023-09-01 15:33 | Hospitalist Progress Note ---
Date of Service September 01, 2023 Assessment & Plan (1) Intra-abdominal abscess: Plan: CT abdomen 08/19 shows increase in size in the right lower quadrant loculated fluid collection as well as progressive multiloculated small foci of gas and fluid collections within and deep to the left mid abdominal wall, consistent with progressive abscesses/fistulas. Per surgery, he is not a surgical candidate and there is no drainable abscess. Broadened antibiotic coverage from IV Unasyn to IV vancomycin and Zosyn. Reconsulted infectious disease Currently on IV Zosyn alone. Per ID, check weekly CBC with differential and CMP while on IV antibiotics. He will need 4 to 6 weeks of antibiotics per ID notes on 08/11. That would end on either 09/08 or 09/22. End date will be decided on by surgery upon follow-up Leukocytosis resolved. Patient started having severe abdominal pain overnight 08/23. Surgery concerned about increased abdominal wall discharge. He is back to being NPO. TPN started per surgery team. 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 Surgery recommends n.p.o., TPN, wound VAC for several weeks. (3) SBO (small bowel obstruction): Plan: Patient had an episode of large-volume vomiting 08/19 CT abdomen showed small bowel obstruction with a transition point located at the site of small bowel anastomosis Patient had been made n.p.o. and was treated conservatively with IV fluids Had slowly improved, was tolerating full liquid diet. But started having severe abdominal pain on 08/23. Now NPO. On TPN Surgery on board Patient is having bowel movements (4) History of DVT (deep vein thrombosis): Plan: Now with new acute DVT on both lower extremities, And possibly PE, given recent hypoxemia and worsening arrhythmias. Initially Started on heparin infusion, but now on hold on account of GI bleed updated Patient is DNR/DNI On 08/29 patient was found to have a superficial vein thrombosis at the PICC line site. The PICC line is absolutely necessary for IV antibiotics and TPN. And the PICC line is functional. Decision was made to keep the PICC line in place. We would not treat a superficial vein thrombosis with anticoagulation and he is not a candidate for anticoagulation anyways. If the arm gets painful, recommended arm elevation and ice pack (5) Atrial fibrillation: Plan: Patient has a hx of Afib, as seen in his [employer] note in 2019 Went into rapid ventricular rhythm during this hospitalization Could have been precipitated by possible pulmonary embolism given recent bilateral DVTs. Although unable to confirm PE because patient is too unstable to go for CT angio. Heparin on hold on account of GI bleed Continue amiodarone and metoprolol p.o. Patient passed swallow test and thus will be able to continue taking his p.o. meds by mouth. (6) Status post laparotomy: Plan: Initially patient was thought to have acute cholecystitis. Went to the OR for laparoscopic cholecystectomy was converted to exploratory laparotomy, bowel resection. 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 Wound VAC in place Continue wound care (7) GI bleed: Plan: Patient had dark stools and GI bleed when he was started on heparin drip to treat DVT. Heparin drip was discontinued. No indication for EGD or colonoscopy given recent abdominal surgery. After the heparin drip was held, the GI bleed stabilized. (8) Cholecystitis: Plan: Status post gallbladder removal Gallbladder fluid grew Klebsiella and Clostridium perfringens Continue IV Zosyn (9) Gastroesophageal reflux disease: Plan: Was on famotidine on admisison, now on IV Protonix (10) History of intestinal obstruction: Plan: History of small bowel obstruction in the past (11) Malnutrition: Plan: Patient is now on TPN as he is going to be n.p.o. for weeks (12) Physical deconditioning: Plan: Physically deconditioned Continue PT (13) Endotracheally intubated: Plan: Extubated 5/6 On room air now (14) Shock: Plan: resolved (15) Hypernatremia: Plan: Resolved (16) Acute blood loss anemia: Plan: From GI loss Transfuse if hemoglobin drops below 7 Consent obtained and placed in chart Plan VTE Prophylaxis: scd CODE STATUS: Full code Awaiting insurance authorization for discharge. Hopefully tomorrow Admission and Anticipated Discharge Date Admission Date: July 29, 2023 Subjective Patient feels well overall. However he was very anxious about leaving today and could not sleep well. Review of Systems Review of Systems: All systems reviewed & are unremarkable except as noted in Subjective Physical Exam Physical Exam: General: Awake, conversant. Appears frail looking Heart: S1, S2/regular rate and rhythm, no murmur rubs or gallops Lungs: Clear to auscultation. Normal effort. Abdomen: Wound VAC in place Extremities: No clubbing/cyanosis. 1+ pitting bilateral edema Behavior: Appropriate, cooperative Results & Data Results & Data Vital Signs (Past 12 Hours) Vital Signs Temp Pulse Pulse Resp BP Pulse Ox O2 Del Method 09/01/23 11:15 36.7 C 78 18 138/73 97 Room Air 09/01/23 09:58 Room Air 09/01/23 08:15 80 09/01/23 07:54 36.5 C 79 18 138/73 94 Room Air PG Care Time/CCT Total # of Minutes Spent Total Time Spent with Patient: Total time spent is greater than 50% in coordination of care (as documented) at patient's floor/unit and/or counseling patient: Coding Level of Care Code 10114 SUB INP/OBS CARE 2/35MIN Diagnoses Intra-abdominal abscess K65.1 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 SBO (small bowel obstruction) K56.609 History of DVT (deep vein thrombosis) Z86.718 Atrial fibrillation I48.91 Status post laparotomy Z98.890 GI bleed K92.2 Cholecystitis K81.9 Gastroesophageal reflux disease, unspecified whether esophagitis present K21.9 Esophagitis presence: esophagitis presence not specified History of intestinal obstruction Z87.19 Malnutrition E46 Physical deconditioning R53.81 Endotracheally intubated Z97.8 Shock R57.9 Hypernatremia E87.0 Acute blood loss anemia D62 (9) Gastroesophageal reflux disease Esophagitis presence: esophagitis presence not specified Qualified Code(s): K21.9 - Gastro-esophageal reflux disease without esophagitis
[2023-09-01] MEDS: CLINOLIPID 20% IV FAT EMULSION 250 ML IV SCH (15:36)
[2023-09-01] MEDS: [UNRECOGNIZED DRUG - OTHER] IV SCH (15:37)
[2023-09-01] MEDS: CENTRAL TPN IV SCH (15:37)
[2023-09-01] MEDS: LORazepam 0.5 MG TAB PO ONE (19:55)
--- NOTE | 2023-09-02 07:35 | Surgery Progress Note ---
Date of Service September 02, 2023 Assessment & Plan (1) Hx laparoscopic cholecystectomy: Plan: Pt is feeling well denies abdominal pain/n/v + bowel function Vac holding good seal continue NPO/PICC/TPN and wound vac at facility stable for discharge from our standpoint once bed arrange and insurance auth achieved f/u in the office with dr. phillip in 10-14 days Admission and Anticipated Discharge Date Admission Date: July 29, 2023 Subjective Patient is feeling well. Denies abdominal pain, nausea/vomiting. Having + bowel function. Eager for discharge. Physical Exam Physical Exam: awake/alert, no distress Respiratory: normal respiratory effort Gastrointestinal (Abdomen): Percussion/Palpation: abdomen soft; abdomen nontender wound vac in place holding good seal Results & Data Vital Signs (Past 12 Hours) Vital Signs Temp Pulse Pulse Resp BP Pulse Ox O2 Del Method 09/02/23 07:22 77 09/02/23 02:23 98.2 F 72 16 126/71 95 Room Air 09/01/23 22:49 98.1 F 83 18 123/69 93 Room Air 09/01/23 22:03 79 09/01/23 19:50 Room Air PG Care Time/CCT Total # of Minutes Spent Total Time Spent with Patient: Total time spent is greater than 50% in coordination of care (as documented) at patient's floor/unit and/or counseling patient: Coding Level of Care Code 40019 Post Operative Follow-Up Diagnoses Hx laparoscopic cholecystectomy Z90.49
[2023-09-02 07:38] LABS: BUN Creatinine Ratio 43.6 (10-20); Calcium 8.6 mg/dl (8.6-10.3); Creatinine Clr Calc Pharmacy 113.9 ml/min; Est GFR (African American) 110.1 ml/min; Magnesium 1.9 mg/dl (1.7-2.4); Phosphorus 3.4 mg/dl (2.5-4.9); Potassium 3.8 mmol/L (3.5-5.1)
--- NOTE | 2023-09-02 09:39 | Discharge Summary ---
Date of Service September 02, 2023 Admission HPI Per Admitting Provider Ciaran Edge is an 83 year old male who presents to the ER with abdominal pain that started at noon today. Associated diarrhea. No nausea or vomiting. History of splenectomy and bowel obstruction. Pain is continuous 4-5/10, no association with movement or eating. Never had similar pain before. No radiation. Admission Exam Per Admitting Provider Constitutional: WD/WN, vitals as above ENMT: external ear and nose normal, oropharynx normal Respiratory: normal respiratory effort, lungs clear to auscultation Cardiovascular: RRR, no murmur, no edema Gastrointestinal (Abdomen): Inspection/Auscultation: abdomen normal to inspection; abdomen not distended Percussion/Palpation: + abdomen tender (RUQ pain on deep palpation) and abdomen soft; no guarding and abdomen not rigid Skin: no rashes, warm and dry Neurologic: moves all extremities and awake; not confused Psychiatric: A+Ox3, euthymic affect Principal Diagnosis Acute cholecystitis Extensive adhesions/frozen abdomen, multiple small bowel enterotomies. Laparoscopic cholecystectomy was turned into exploratory laparotomy on 07/30/2023 with partial small bowel resection, enteroenterostomy, repair of enterotomies Intra-abdominal abscess, being managed by wound VAC and IV antibiotics. Not surgical. Not drainable. 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 Resolved Discharge Exam General: Awake, conversant. Appears frail looking Heart: S1, S2/regular rate and rhythm, no murmur rubs or gallops Lungs: Clear to auscultation. Normal effort. Abdomen: Wound VAC in place Extremities: No clubbing/cyanosis. 1-2+ pitting bilateral edema Behavior: Appropriate, cooperative Discharge Data Allergies Allergy/AdvReac Type Severity Reaction Status Date / Time sulfamethoxazole Allergy Unknown RASH Verified 04/06/23 12:52 trimethoprim Allergy Unknown RASH Verified 04/06/23 12:52 oxycodone AdvReac Intermediate Dizziness Verified 04/06/23 12:52 Consultations 07/29/23 19:13 Consult General Surgery Stat 07/29/23 19:17 ED Decision to Admit Stat 07/30/23 19:36 Consult Peoplesoft Analyst Routine 07/31/23 10:04 Consult Pain Management Routine 08/10/23 07:26 Consult Infectious Diseases Routine 08/12/23 15:26 Consult Cardiology Routine 08/15/23 09:08 Consult Palliative Care Routine 08/17/23 15:59 Consult Gastroenterology Routine 08/23/23 08:56 Consult Infectious Diseases Routine Procedures Performed Operation Date: 07/30/23 12:00 Actual Procedures s Laparoscopic Cholecystectomy, Convert to (Not Applicable) - King Yu DO p exploratory laparotomy, partial small bowel resection, enteroenterostomy, repair of enterotomies x4, extensive enterolysis(Not Applicable) - King Yu DO Ordered Studies 07/29/23 16:21 CT abd pelvis IV con only Stat 07/29/23 19:48 US GB [US gallbladder] Stat 08/01/23 10:32 US - OR guided needle placemen Routine 08/01/23 22:03 CT Abd and Pelvis [CT abd pelvis IV con only] Stat 08/10/23 10:54 CT Abd and Pelvis [CT abd pelvis IV con only] Routine 08/11/23 07:00 CT limited or localized study Routine 08/13/23 08:52 US venous doppler LE RT Stat 08/13/23 09:02 US arterial duplex LE LT Stat 08/14/23 00:27 US venous duplex leg [US venous doppler LE LT] Urgent 08/15/23 07:42 CT angio chest PE protocol Routine 08/16/23 09:00 Fluoro video [FL video swallow] Routine 08/16/23 18:21 CT Abd and Pelvis [CT abd pelvis wo con] Stat 08/19/23 22:03 CT Abd and Pelvis [CT abd pelvis wo con] Stat 08/30/23 14:20 US venous doppler UE RT Routine Hospital Course (1) Intra-abdominal abscess: CT abdomen 08/19 shows increase in size in the right lower quadrant loculated fluid collection as well as progressive multiloculated small foci of gas and fluid collections within and deep to the left mid abdominal wall, consistent with progressive abscesses/fistulas. Per surgery, he is not a surgical candidate and there is no drainable abscess. Broadened antibiotic coverage from IV Unasyn to IV vancomycin and Zosyn. Reconsulted infectious disease Currently on IV Zosyn alone. Per ID, check weekly CBC with differential and CMP while on IV antibiotics. He will need 4 to 6 weeks of antibiotics per ID notes on 08/11. That would end on either 09/08 or 09/22. End date will be decided on by surgery upon follow-up Leukocytosis resolved. Patient started having severe abdominal pain overnight 08/23. Surgery concerned about increased abdominal wall discharge. He is back to being NPO. TPN started per surgery team. (2) Enterocutaneous fistula: Enterocutaneous fistula: He had lap liv and repair of enterotomies with small bowel resection Now turned into a high output fistula. Surgery recommends n.p.o., TPN, wound VAC for several weeks. (3) SBO (small bowel obstruction): Patient had an episode of large-volume vomiting 08/19 CT abdomen showed small bowel obstruction with a transition point located at the site of small bowel anastomosis Patient had been made n.p.o. and was treated conservatively with IV fluids Had slowly improved, was tolerating full liquid diet. But started having severe abdominal pain on 08/23. Now NPO. On TPN Surgery on board Patient is having bowel movements (4) History of DVT (deep vein thrombosis): Now with new acute DVT on both lower extremities, And possibly PE, given recent hypoxemia and worsening arrhythmias. Initially Started on heparin infusion, but now on hold on account of GI bleed updated Patient is DNR/DNI On 08/29 patient was found to have a superficial vein thrombosis at the PICC line site. The PICC line is absolutely necessary for IV antibiotics and TPN. And the PICC line is functional. Decision was made to keep the PICC line in place. We would not treat a superficial vein thrombosis with anticoagulation and he is not a candidate for anticoagulation anyways. If the arm gets painful, recommended arm elevation and ice pack (5) Status post laparotomy: Initially patient was thought to have acute cholecystitis. Went to the OR for laparoscopic cholecystectomy 07/30/2023 but was converted to exploratory laparotomy, bowel resection. 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 Wound VAC in place Continue wound care (6) GI bleed: Patient had dark stools and GI bleed when he was started on heparin drip to treat DVT. Heparin drip was discontinued. No indication for EGD or colonoscopy given recent abdominal surgery. After the heparin drip was held, the GI bleed stabilized. (7) Cholecystitis: Status post gallbladder removal Gallbladder fluid grew Klebsiella and Clostridium perfringens Continue IV Zosyn (8) Gastroesophageal reflux disease: Was on famotidine on admisison, now on IV Protonix (9) History of intestinal obstruction: History of small bowel obstruction in the past (10) Malnutrition: Patient is now on TPN as he is going to be n.p.o. for weeks (11) Physical deconditioning: Physically deconditioned Continue PT (12) Endotracheally intubated: Extubated 07/31 On room air now (13) Shock: resolved (14) Hypernatremia: Resolved (15) Acute blood loss anemia: From GI loss Transfuse if hemoglobin drops below 7 Consent obtained and placed in chart Plan Discharge today Total Time Total Time Spent Total Time Spent (In Minutes): 35 Discharge Plan Discharge Items Patient Disposition: [facility] Reason For Visit: ACUTE CHOLECYSTITIS Discharge Diagnosis: Acute cholecystitis Extensive adhesions/frozen abdomen, multiple small bowel enterotomies. Laparoscopic cholecystectomy was started in 2 exploratory laparotomy with partial small bowel resection, enteroenterostomy, repair of enterotomies Intra-abdominal abscess, being managed by wound VAC and IV antibiotics. Not surgical. Not drainable. 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 Resolved Activity: Per Instructions section Lifting: No more than 10 pounds Exercise/Sports: Wait until after follow-up appointment Non-emergency contact: Primary Care Provider and Surgeon Call non-emergency contact if: your symptoms worsen, you have a fever, your temperature is above 101.5, your wound has increased redness and your wound has increased drainage Follow-up/Referrals: King Yu, [Surgeon] - (please call to schedule follow up in clinic within 10-14 days) Checo Huerta MD [Primary Care Provider] - Diet: Nothing by Mouth Addtl Attending Provider Instructions: please follow up with Dr. Yu in 10-14 days. Advised to follow-up with PCP in 1 week Labs will need to be checked every 3 days x 3: BMP, magnesium, phosphorus. If they remain stable, these labs can then be checked once weekly Lipids should be checked once weekly Continue Zosyn 4.5 g IV Q8. Per ID notes on 08/11, he will need to be on Zosyn for 4 to 6 weeks. That would end on either 09/08 or 09/22. The end date will be decided by surgery on follow-up. While on Zosyn, check weekly CBC with differential and CMP Continue wound VAC per surgery and wound care instructions Patient is allowed to have p.o. medications but otherwise n.p.o. Pending Studies at Discharge: No Stand-Alone Forms: My [facility] Skilled Items Patient informed of condition?: Yes DNR: Yes Discharge Level of Care: Skilled Communicable Disease: No Discharge Prognosis: Stable Lines: PICC Urinary Catheter: No Medications and DC Order Prescriptions: New amiodarone 200 mg Tablet 200 mg PO QAM 30 Days Qty: 30 0RF metoprolol succinate 50 mg Tablet Extended Release 24 Hr 50 mg PO QAM 30 Days Qty: 30 0RF bisacodyl 10 mg Suppository 10 mg MN BID Qty: 12 0RF ferrous sulfate 325 mg (65 mg iron) Tablet,Delayed Release (Dr/Ec) 325 mg PO BIDM 30 Days Qty: 60 0RF Continued sildenafil (pulm.hypertension) 20 mg tablet 20 mg PO DAILY PRN (Reason: sexual activity) Qty: 90 3RF Rx Instructions: Take 1-5 tablets as needed for sexual activity Do not exceed 100mg daily cyanocobalamin (vitamin B-12) 500 mcg tablet 500 mcg PO QAM gabapentin 400 mg Capsule 400 mg PO TID Rx Instructions: with 100mg for a total dose of 500mg TID metoprolol succinate 25 mg tablet extended release 24 hr 25 mg PO BID Qty: 60 2RF vitamin B complex Tablet Extended Release 1 tab PO QAM gabapentin 100 mg Capsule 100 mg PO TID Rx Instructions: for a total dose of 500mg TID PreserVision AREDS-2 250-90-40-1 mg Capsule 1 tab PO QAM Artificial Tears (cmc) 1 % Drops 1 drp OPHTHALMIC (EYE) BID cholecalciferol (vitamin D3) [Vitamin D3] 125 mcg (5,000 unit) Tablet 125 mcg PO QAM famotidine 40 mg tablet 40 mg PO QAM Discontinued amoxicillin 500 mg Tablet 500 mg PO UD PRN (Reason: dental procedures) Discharge Orders: Discharge Order (Routine); Ordered 09/02/23 Ordered By: Les Renteria Admission Data Admit Date/Time: 07/29/23 20:11 Attending Provider: Les Renteria Admit Provider: Lawrence Braxton Primary Care Provider: Checo Huerta Other Providers: [facility]; Kign Yu; Lawrence Braxton; Etienne Reed; Sunitha Rapp; Susana Mojica; Yazmin Bagley; Rosa Shepard; Stephane Bardales; Andi Thomas; Agustin Padilla; Emir Machado; Soni Machado; Terry Sheffield; Chralene Stroud; Valentin Summers; Qasim Casey; Gokul Luciano; Juwan Solis; Edelmira Cook; Mitchell Galaviz; Casandra Galaviz; Jayy Waters; Irais Zambrano; Delio Nickerson; Luisa Ron; Belinda Gutierres; Delta Harding; Cara Deal; Francisca Beck; Galilea Crain; Katy Espinal; Checo Espinal V; Ruddy Fisher; Susana Rogers; Lewis Mcmahon; Faye Das; Checo Tsefaye; Shaun Cook; Wilber Bland; Latesha Gomes; Elisa Morris; Checo Martinez; Han Hebert; Jenise Cortes; Behzad Fuller; Ginger Lauren; Betty Roque; Luis Sarah; Remberto Solis; Lia Marie; Gian Pillai; Ermias Day; Edmund Mccrary; Stephane Sylvester Jr; Christine De La Torre; Danielle Baca; Francia Nguyễn; Delta Larry; Emir Shepard; Maria Del Carmen Palma; Danielle Flores; Carlos Schultz; Emanuel Lewis; Porfirio Rivas; Balwinder Parsons; Courtney Mehta; Anamika Zhou; Ellen Stover; Bess Johnson; Edmund Canales; Kia Romero; Joe Naranjo; Gemini Jones; Lizett Kaufman [place]; IRB Approved Study,[facility] Coding Level of Care Code 79815 INP/OBS DISCH >30 MIN Diagnoses Intra-abdominal abscess K65.1 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 SBO (small bowel obstruction) K56.609 History of DVT (deep vein thrombosis) Z86.718 Status post laparotomy Z98.890 GI bleed K92.2 Cholecystitis K81.9 Gastroesophageal reflux disease, unspecified whether esophagitis present K21.9 Esophagitis presence: esophagitis presence not specified History of intestinal obstruction Z87.19 Malnutrition E46 Physical deconditioning R53.81 Endotracheally intubated Z97.8 Shock R57.9 Hypernatremia E87.0 Acute blood loss anemia D62
== END 2023-09-02 15:15 | DRG 417 ==
LOC: ED 15:36 → SUATTDRO 20:11 → 3N 20:11 → 1E 07-30 16:42 → 2S 08-04 18:42 → 2W 08-19 12:56
DX: R09.02 Hypoxemia; Z86.711 Personal history of pulmonary embolism; Y71.2 Prosthetic and other implants, materials and accessory cardiovascular devices associated with adverse incidents; I48.92 Unspecified atrial flutter; K81.0 Acute cholecystitis; D62 Acute posthemorrhagic anemia; B96.1 Klebsiella pneumoniae [K. pneumoniae] as the cause of diseases classified elsewhere; Z96.642 Presence of left artificial hip joint; E66.9 Obesity, unspecified; E87.0 Hyperosmolality and hypernatremia; K21.9 Gastro-esophageal reflux disease without esophagitis; T82.868A Thrombosis due to vascular prosthetic devices, implants and grafts, initial encounter; R65.21 Severe sepsis with septic shock; Z86.718 Personal history of other venous thrombosis and embolism; R04.0 Epistaxis; K66.8 Other specified disorders of peritoneum; I48.0 Paroxysmal atrial fibrillation; Z90.81 Acquired absence of spleen; Z88.2 Allergy status to sulfonamides; K92.1 Melena; K63.2 Fistula of intestine; Y92.239 Unspecified place in hospital as the place of occurrence of the external cause; Z86.16 Personal history of COVID-19; I26.99 Other pulmonary embolism without acute cor pulmonale; K91.30 Postprocedural intestinal obstruction, unspecified as to partial versus complete; I10 Essential (primary) hypertension; I82.403 Acute embolism and thrombosis of unspecified deep veins of lower extremity, bilateral; K65.8 Other peritonitis; Z66 Do not resuscitate; K66.0 Peritoneal adhesions (postprocedural) (postinfection); K65.1 Peritoneal abscess; E83.39 Other disorders of phosphorus metabolism; Y83.9 Surgical procedure, unspecified as the cause of abnormal reaction of the patient, or of later complication, without mention of misadventure at the time of the procedure; A41.9 Sepsis, unspecified organism; Z88.5 Allergy status to narcotic agent; E46 Unspecified protein-calorie malnutrition; Z99.11 Dependence on respirator [ventilator] status

== ENCOUNTER 2023-11-23 15:25 | Observation (INO) ==
--- NOTE | 2023-11-23 15:29 | ED Triage Note ---
Date of Service November 23, 2023 Provider in Triage Author: Reed Farrell History of Present Illness This patient was briefly evaluated while in triage. An abbreviated physical exam was performed. This patient is a 83-year-old Male who presents to the ED for evaluation abdominal pain started yesterday morning, was coming and going until just HOISTMAN had a large, formed BM just HOISTMAN, and now pain is better. lower abdomen near umbilicus no N/V/D, no urinary symptoms hx of kidney stones, cholecystectomy, intraabdominal abscess, bowel obstructions Physical Exam GENERAL: NAD, BP 90s/50s CARDIOVASCULAR: RRR RESPIRATORY: CTA ABDOMEN: BS diminished. Mild lower abdominal TTP. Initial orders for labs and / or imaging were placed and patient was placed in the waiting area until a bed is available. Please see further documentation for the full ED course.
[2023-11-23 15:52] LABS: Basophils # (auto) 0.03 K/uL (0.00-0.20); Basophils % (auto) 0.3 %; Eosinophils # (auto) 0.12 K/uL (0.00-0.50); Eosinophils % (auto) 1.1 %; Immature Granulocytes # (auto) 0.03 K/uL (0.01-0.20); Immature Granulocytes % (auto) 0.3 %; Lymphocytes # (auto) 2.66 K/uL (1.20-3.40); Lymphocytes % (auto) 23.7 %; Mean Corpuscular Hemoglobin 24.8 pg (25.0-34.0); Mean Corpuscular Hgb Conc 30.6 g/dL (32.0-36.0); Mean Corpuscular Volume 80.9 fL (80.0-100.0); Mean Platelet Volume 9.8 fL (9.4-12.4); Neutrophils # (auto) 7.47 K/uL (1.40-6.50); Neutrophils % (auto) 66.6 %; Platelet Count 321 K/uL (130-400); RDW Coefficient of Variation 19.6 % (11.5-14.5); Red Blood Count 6.06 M/uL (4.70-6.10); White Blood Count 11.21 K/ul (4.8-10.8)
[2023-11-23 16:09] LABS: Albumin Level 3.7 gm/dl (3.4-5.0); BUN Creatinine Ratio 35.1 (10-20); Bilirubin,Total 0.4 mg/dl (0.2-1.0); Calcium 9.9 mg/dl (8.6-10.3); Creatinine Clr Calc Pharmacy 65.7 ml/min; Est GFR (African American) 85.3 ml/min; Est GFR (Non-African American) 73.6 ml/min; Globulin 3.6 gm/dl (2.5-4.0); Potassium 4.4 mmol/L (3.5-5.1); Total Protein 7.3 gm/dl (6.0-8.3)
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
[2023-11-23] MEDS: OPTIRAY 320 100ml IV ONE (16:33)
--- NOTE | 2023-11-23 16:58 | CT Scan Report ---
CT SCAN OF THE ABDOMEN AND PELVIS WITH IV CONTRAST CLINICAL HISTORY: Left lower quadrant abdominal pain. 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 COMPARISON STUDY: Abdominal CT dated 08/20/2023. TECHNIQUE: Following the IV administration of 95 cc of Optiray 320, CT scan of the abdomen and pelvi s is performed from the lung bases to the proximal femora. Images are reviewed in the axial, sagittal , and coronal planes. IV contrast was administered without complication. A dose lowering technique wa s utilized adhering to the principles of ALARA. CT DOSE: 1325.12 mGy.cm FINDINGS: Lung bases: The heart is normal in size and without pericardial effusion. There is coronary artery at herosclerosis. The lung bases are clear noting bibasilar scarring/atelectasis. Liver: The contrast-enhanced liver is normal in size, contour, and attenuation. There is no intrahepa tic biliary ductal dilatation. The hepatic veins and portal veins are patent. Lobulated calcification -containing hepatic lesions are unchanged. The largest measures up to 5.5 cm. Gallbladder: Surgically absent noting clips in the gallbladder fossa. Spleen: A normal spleen is not identified. Large splenules are seen in the left upper quadrant. Pancreas: A 12 mm simple cystic lesion in the pancreatic tail on image #117 is unchanged. 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 The pancreas is mildly atrophic and otherwise grossly unremarkable. Adrenal glands: Unremarkable. Kidneys: The contrast enhanced kidneys demonstrate mild cortical atrophy and are without hydronephros is. The kidneys enhance symmetrically. Bilateral cysts measure up to 4.1 cm. Additional subcentimeter cortical hypodensities also likely represent cysts but are too small for definitive characterization . A 4 mm nonobstructing calculus is seen on the left. A punctate nonobstructing calculus is seen on t he right. Abdominal vasculature: The abdominal aorta is normal in course and caliber noting moderate atheroscle rotic calcification. Bowel: There is advanced colonic diverticulosis without CT evidence of acute diverticulitis. Mild fec al retention is noted throughout the colon. The appendix is well-visualized and normal. There is pos tsurgical change consistent with previous small bowel resection. Postoperative changes also seen at t he umbilicus. The proximal small bowel loops are dilated and fluid-filled, measuring up to 4.5 cm in diameter. A transition point is seen in the left ventral abdomen at the anastomotic site on image #22 1. The distal small bowel loops are decompressed, and findings suggest a small bowel obstruction. The re are loops of small bowel matter at the umbilicus. An enterocutaneous fistula would be impossible t o exclude. Peritoneum: There is no intraperitoneal free air or abdominal ascites. Lymphadenopathy: A prominent mesenteric node in the right central abdomen on image 67 measures up to 10 mm. No additional enlarged mesenteric nodes are identified. Pelvic viscera: Evaluation of the pelvis is degraded by streak artifact from a left hip arthroplasty. The prostate gland is mildly enlarged and heterogeneous. The bladder wall appears thickened/trabecul ated indicating chronic outlet obstruction. There is evidence of previous bilateral inguinal herniorr haphy. Skeletal structures: The skeletal structures are osteopenic. There is moderate to advanced cervical s pondylosis. No lytic or blastic lesions are seen. A left hip arthroplasty is in place. Arthritic lehman ge is seen in the right hip. IMPRESSION: 1. Again seen is postsurgical change from small bowel resection 2. The proximal small bowel loops are distended and fluid-filled, and there is an apparent transition point at a small bowel anastomosis in the left ventral abdomen. This is similar in appearance to the 08/20/2023 examination and suspicious for a small bowel obstruction. 3. There are matted loops of small bowel against the umbilicus with postsurgical change. Given the hi story of a fistula, an enterocutaneous fistula would be impossible to exclude. Clinical correlation w ill be required. 4. Fluid collections seen on 08/20/2023 have resolved. 6. Advanced colonic diverticulosis without CT evidence of acute diverticulitis. 7. Bilateral nephrolithiasis. 8. There is a prominent 10 mm mesenteric lymph node as above which is pathologically indeterminate an d may be reactive. Attention at follow-up is recommended. 9. Additional findings as above. ACT 112: Negative or not required by law. Electronically signed by: Behzad Parmar M.D. 11/23/2023 4:56 PM
--- NOTE | 2023-11-23 17:00 | XRay Report ---
XR chest 1V portable HISTORY: borderline hypoxia COMPARISON: Chest 08/19/2023. FINDINGS: No pneumothorax. No pleural effusions. No focal lung consolidations to suggest a pneumonia. No evidence for pulmonary edema. The cardiac silhouette remains mildly enlarged. No acute fractures. Suture material again noted within the left lung apex. IMPRESSION: No significant change compared to the prior study. No acute process. ACT 112: Negative or not required by law. Electronically signed by: Emir Velazquez M.D. 11/23/2023 4:59 PM
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
[2023-11-23] MEDS: SODIUM CHLORIDE 0.9% 500 ML IV ONE (19:27)
[2023-11-23] MEDS ORDERED: ACETAMINOPHEN 1,000 MG/100 ML VIAL IV PRN (20:43)
[2023-11-23] MEDS ORDERED: MoRPHine SULFATE 2 MG/ML CARP IV PRN (20:43)
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
[2023-11-23] MEDS: SODIUM CHLORIDE 0.9% 500 ML IV SCH (21:35)
[2023-11-23] MEDS: LACTATED RINGER'S 1,000 ML IV SCH (21:43)
[2023-11-23] MEDS: HEPARIN SOD 5,000 UNIT/0.5 ML VIAL SQ SCH (21:44)
[2023-11-23 22:00] VITALS: RESP 16
[2023-11-24 00:16] LABS: Appearance Urine Clear (Clear); Bilirubin Urine Negative (Negative); Blood Urine Negative (Negative); Color Urine Yellow; Glucose Urine UA Negative (Negative); Ketones Urine Negative (Negative); Leukocyte Esterase Urine Negative (Negative); Nitrite Urine Negative (Negative); Protein Urine Negative (Negative); Specific Gravity Urine 1.028 (1.000-1.030); Urobilinogen Urine Negative (Negative)
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
[2023-11-24 07:32] VITALS: BP 119/76; PULSE 66; TEMP 98.1; O2SAT 94
[2023-11-24 07:46] LABS: Basophils # (auto) 0.02 K/uL (0.00-0.20); Basophils % (auto) 0.3 %; Eosinophils # (auto) 0.13 K/uL (0.00-0.50); Eosinophils % (auto) 2.2 %; Hematocrit (blood only) 42.4 % (42.0-52.0); Hemoglobin 12.9 g/dl (14.0-18.0); Lymphocytes # (auto) 2.76 K/uL (1.20-3.40); Lymphocytes % (auto) 46.5 %; Mean Corpuscular Hemoglobin 24.5 pg (25.0-34.0); Mean Corpuscular Hgb Conc 30.4 g/dL (32.0-36.0); Mean Corpuscular Volume 80.5 fL (80.0-100.0); Mean Platelet Volume 10.3 fL (9.4-12.4); Monocytes # (auto) 0.62 K/uL (0.11-0.59); Monocytes % (auto) 10.5 %; Neutrophils % (auto) 40.5 %; Platelet Count 267 K/uL (130-400); RDW Coefficient of Variation 18.8 % (11.5-14.5); RDW Standard Deviation 53.4 fL (36.4-46.3); Red Blood Count 5.27 M/uL (4.70-6.10); White Blood Count 5.93 K/ul (4.8-10.8)
[2023-11-24 08:11] LABS: BUN Creatinine Ratio 27.6 (10-20); Creatinine Clr Calc Pharmacy 81.2 ml/min; Est GFR (African American) 96.4 ml/min; Est GFR (Non-African American) 83.2 ml/min; Potassium 4.7 mmol/L (3.5-5.1)
--- NOTE | 2023-11-24 08:50 | Surgery Progress Note ---
Date of Service November 24, 2023 Assessment & Plan (1) SBO (small bowel obstruction): Plan: pt reports no abd pain, no n.v wbc wnl +flatus and bm since admission Known fistulous tract mid abd , follows wound care center o/p will trial clear liquids this AM if tolerates without n/v he can be advanced for lunch Admission and Anticipated Discharge Date Admission Date: November 23, 2023 Supervising Physician Co-Signing Physician Notes Patient seen and examined, labs and imaging reviewed, agree with above. Well- known to service for prior abdominal surgery and resultant prolonged hospital stay. Presented with abdominal pain that had resolved with a large bowel movement. He is since had another large bowel meant is feeling much better. He denies any abdominal pain and has tolerated a diet since being advanced. On exam he is afebrile stable vitals, binder in place, abdomen soft, nontender. CT personally reviewed and interpreted and there is small bowel distention leading up to the anastomosis, however this is likely chronic in nature. He may be discharged to home follow-up as needed. Subjective pt denies n/v , abd pain reports +flatus and bM since admission Review of Systems Constitutional: no fever and no chills Respiratory: no dyspnea Cardiovascular: no chest pain Gastrointestinal: no abdominal pain, no nausea and no vomiting Integumentary: + wounds Physical Exam Constitutional: cooperative and comfortable; no acute distress Respiratory: normal respiratory effort and able to speak in complete sentences; no respiratory distress Cardiovascular: Rate/Rhythm: regular rate Gastrointestinal (Abdomen): Inspection/Auscultation: abdomen not distended Percussion/Palpation: abdomen soft; abdomen nontender known fistulous tract Results & Data Vital Signs (Past 12 Hours) Vital Signs Temp Pulse Resp BP Pulse Ox O2 Del Method 11/24/23 07:31 98.1 F 66 16 119/76 94 Room Air Results CBC w Diff Results: RBC 5.27 M/uL (4.70-6.10) 11/24/23 WBC 5.93 K/ul (4.8-10.8) 11/24/23 Hgb 12.9 g/dl (14.0-18.0) L 11/24/23 Hct 42.4 % (42.0-52.0) 11/24/23 MCV 80.5 fL (80.0-100.0) 11/24/23 MCH 24.5 pg (25.0-34.0) L 11/24/23 MCHC 30.4 g/dL (32.0-36.0) L 11/24/23 RDW Standard Deviation 53.4 fL (36.4-46.3) H 11/24/23 RDW Coefficient of Variation 18.8 % (11.5-14.5) H 11/24/23 Plt Count 267 K/uL (130-400) 11/24/23 MPV 10.3 fL (9.4-12.4) 11/24/23 Nucleated Red Blood Cells % (auto) 0.2 % 08/27 Nucleated RBC Absolute Count (auto) 0.02 K/uL (0.00-0.12) 0 08/28/23 Neutrophils (%) (Auto) 40.5 % 11/24/23 Lymphocytes (%) (Auto) 46.5 % 11/24/23 Monocytes # (Auto) 0.62 K/uL (0.11-0.59) H 11/24/23 Eosinophils # (Auto) 0.13 K/uL (0.00-0.50) 11/24/23 Immature Granulocyte % (Auto) 0.0 % 11/24/23 Neutrophils # (Auto) 2.40 K/uL (1.40-6.50) 11/24/23 Lymphocytes # (Auto) 2.76 K/uL (1.20-3.40) 11/24/23 Monocytes # (Auto) 0.62 K/uL (0.11-0.59) H 11/24/23 Eosinophils # (Auto) 0.13 K/uL (0.00-0.50) 11/24/23 Basophils # (Auto) 0.02 K/uL (0.00-0.20) 11/24/23 Immature Granulocyte # (Auto) 0.00 K/uL (0.01-0.20) L 11/23 Red Blood Cell Morphology Unremarkable 08/06/23 PG Care Time/CCT Total # of Minutes Spent Total Time Spent with Patient: Total time spent is greater than 50% in coordination of care (as documented) at patient's floor/unit and/or counseling patient: Coding Level of Care Code 47547 SUB INP/OBS CARE 1/25MIN Diagnoses SBO (small bowel obstruction) K54.531
--- NOTE | 2023-11-24 09:31 | Hospitalist Progress Note ---
Date of Service November 24, 2023 Assessment & Plan (1) SBO (small bowel obstruction): Plan: - improving history of acute cholecystitis with lap. liv. 07/30/2023 converted to ex-lap. with partial small bowel resection due to extensive adhesional disease CT on admission showed prior small bowel resection, proximal small bowel loops are distended and fluid-filled and distal small bowel loops decompressed indicating SBO. - Indeterminant 10 mm mesentery lymph node is noted, may be reactive, recommended to have serial reimaging to follow. trace leukocytosis on admission resolved Remains with anterior cutaneous fistula, stable Surgery following, advancing diet as tolerated with possible discharge this afternoon (2) Paroxysmal A-fib: Plan: - not on long-term anticoagulation due to history of GI bleed - EKG on admission Sinus with PVCs Continue amiodarone and metoprolol Plan VTE ppx: Heparin Diet: clears CODE STATUS: Full code Admission and Anticipated Discharge Date Admission Date: November 23, 2023 Supervising Physician Co-Signing Physician Notes Patient was seen and examined independently I discussed the case with Kassy CANTRELL I reviewed pertinent past medical social family history and also the plan of care and agree with the plan of care. Patient seen in company of his he was doing well he had flatus and eventually the bowel movement he was tolerating meals. Surgery seen the patient feels he can go home if he is able to tolerate lunch and ambulates which she did. Evaluation of his abdomen shows it to be nonacute there is hypoactive bowel sounds but bowel sounds are present is soft nontender no rebound or guarding Likely adhesion related small bowel obstruction due to fairly significant cholecystectomy. Patient will be discharged home and I low residual diet with follow-up with his primary care physician. As appropriate discharge is greater than 30 minutes Any exceptions will be noted below Subjective Patient doing well, no acute events overnight. Upon examination patient was lying in bed, with his at the bedside. He stated that he is doing great with no complaints other than that he is hungry. He denies abdominal pain, nausea, vomiting, dizziness, lightheadedness, chills, fever, chest pain, shortness of breath, and cough. His last bowel movement was before coming into the ER yesterday. He stated that he has had the tremor in his right arm since having a PICC line placed in July. Review of Systems Review of Systems: See above Physical Exam Physical Exam: The patient is awake, alert and oriented 3, well developed and well nourished, normocephalic and atraumatic, lying in bed and in no acute distress. Non-toxic appearing. HEENT- EOMI, mucous membranes moist. Hearing grossly intact. Heart-normal S1 and S2. No murmurs, rubs or gallops. Lungs-clear bilaterally, no respiratory distress, no accessory muscle use. Abdomen-normal bowel sounds and soft. Non-tender. Known fistula covered with no surrounding erythema. Extremities-no cyanosis or clubbing. No edema. Tremor of right arm. Psychiatric-normal affect. Results & Data Results & Data Vital Signs (Past 12 Hours) Vital Signs Temp Pulse Resp BP Pulse Ox O2 Del Method 11/24/23 07:31 36.7 C 66 16 119/76 94 Room Air PG Care Time/CCT Total # of Minutes Spent Total Time Spent with Patient: Total time spent is greater than 50% in coordination of care (as documented) at patient's floor/unit and/or counseling patient: Coding Level of Care Code None Diagnoses SBO (small bowel obstruction) K56.609 Paroxysmal A-fib I48.0
[2023-11-24] MEDS: CHOLECALCIFEROL 125 MCG (5,000 UNITS) TAB PO SCH (10:03)
[2023-11-24] MEDS: METOPROLOL SUCC 25MG EXT REL TAB PO SCH (10:03)
[2023-11-24] MEDS: CYANOCOBALAMIN (B-12) 500 MCG TABLET PO SCH (10:04)
[2023-11-24] MEDS: FERROUS SULFATE 325 MG TAB PO SCH (10:04)
[2023-11-24] MEDS: ZINC SULFATE 220 MG CAPSULE PO SCH (10:04)
[2023-11-24] MEDS: CEROVITE ADV FORMULA TAB PO SCH (10:04)
[2023-11-24] MEDS: FAMOTIDINE 40 MG TABLET PO SCH (10:04)
[2023-11-24] MEDS: AMIODARONE 200 MG TAB PO SCH (11:02)
--- NOTE | 2023-11-24 18:15 | Billing Data ---
Date of Service November 24, 2023 Coding Level of Care Code 20530 INP/OBS DISCH >30 MIN
--- OUTSIDE RECORDS SUMMARY | 2023-11-24 19:27 | External Medical Summary ---
Author Name Unknown Address Unknown Organization K01:[facility] - [address] [place] [id number] Laboratory Report Ordering Provider Test Date Status ATIF TOVAR 11/23/2023 13:45:00 Preliminary Observation Date Value Abnormality Reference (Units) Status Bacteria identified in Specimen by Culture 11/23/2023 13:45:00 [id number]^STAPH YLOCOCCUS AUREUS Abnormal Preliminary Few Staphylococcus aureus
Test: Culture, Wound, Superficial, Aerobic
Specimen Source: Abdomen
Specimen Type: Superficial Wound
Specimen Date: 11/23/2023 1345
Result Date: 11/24/2023 1156
Result Status: Preliminary result
Abnormal: Yes
Resulting Lab: [facility]
[address]
[place] [id number]

CULTURE

Few Staphylococcus aureus (Abnormal)

null Performing Location [facility] [address] [facility] [id number]
--- NOTE | 2023-11-26 00:06 | Electrocardiogram Report ---
Test Reason : Blood Pressure : */* mmHG Vent. Rate : 68 BPM Atrial Rate : 68 BPM P-R Int : 178 ms QRS Dur : 88 ms QT Int : 406 ms P-R-T Axes : 49 -30 15 degrees QTcB Int : 431 ms Sinus rhythm with Premature ventricular complexes Left axis deviation Low voltage QRS Abnormal ECG When compared with ECG of 19-Aug-2023 22:54, Premature ventricular complexes are now Present Confirmed by Luis Thao ([id number]) on 11/26/2023 12:06:24 AM Referred By: REFERRED SELF Confirmed By: Luis Thao
--- NOTE | 2023-11-30 07:32 | Discharge Summary ---
Discharge Summary Date of Service November 24, 2023 Principal Dx & Hospital Course #1 = Principal Diagnosis (1) SBO (small bowel obstruction): - resolved history of acute cholecystitis with lap. liv. 07/30/2023 converted to ex-lap. with partial small bowel resection due to extensive adhesional disease CT on admission showed prior small bowel resection, proximal small bowel loops are distended and fluid-filled and distal small bowel loops decompressed indicating SBO. - Indeterminant 10 mm mesentery lymph node is noted, may be reactive, recommended to have serial reimaging to follow. trace leukocytosis on admission resolved Remains with anterior cutaneous fistula, stable tolerated diet well , discharge this afternoon (2) Paroxysmal A-fib: - not on long-term anticoagulation due to history of GI bleed - EKG on admission Sinus with PVCs Continue amiodarone and metoprolol Plan CODE STATUS: Full code Notes For Next Care Provider good skin care at area of fistulae Admission HPI Per Admitting Provider Ciaran is a 83-year-old male with a past medical history of laparotomy, cholecystitis, SBO, A-fib on amiodarone/metoprolol not on anticoagulation who presents with nausea/vomiting and is found to have an SBO. 2 days of RIGHT lower abdominal discomfort. Has some abdominal discomfort with sweating earlier today. Denies chest pain, chest pressure, shortness of breath, syncope, presyncope. Had abdominal pain off and on throughout the day, crampy pain would cause him to sweat a bit. This seems to have improved somewhat by time of ER evaluation. He had a bowel movement this afternoon which seems to have helped and relieved his pain. He was concerned based on his recent history and complicated SBO, called [facility] who called his PCP who recommended he be seen in the ER. No fevers No chest pain/pressure No vomiting No diarrhea. Last BM earlier today. 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 Has had some drainage which has not changed. Underlying skin is without warmth/erythema/tenderness Medical History: Reviewed Medications: Reviewed Surgical History: Reviewed Family history: Reviewed Allergies: Reviewed Social History: No tobacco, No etoh use Code Status: Full Discharge Exam seen with abd site inspected some drainage from fistulae nursing to redress Discharge Plan Discharge Items Patient Disposition: Home - Home Health Services Reason For Visit: ABD PAIN, ?SBO Discharge Diagnosis: 1. Small bowel obstruction, resolved 2. Paroxysmal A-fib Condition on Discharge: Good Activity: Resume your previous activity Non-emergency contact: Primary Care Provider and Purchasing/Receiving Call non-emergency contact if: you have any medication questions, your symptoms worsen, your pain is worsening and you have a fever Follow-up/Referrals: Checo Huerta MD [Primary Care Provider] - 12/02/23 8:25 am Diet: Regular Addtl Attending Provider Instructions: You were seen for a small bowel obstruction likely due to previous surgical adhesions. You have tolerated the advance in diet well. Continue to advance diet at home. Return or call your primary care provider if symptoms return. Pending Studies at Discharge: No Stand-Alone Forms: My [facility] Medications and DC Order Prescriptions: Continued amiodarone 200 mg tablet 200 mg PO QDL ferrous sulfate 325 mg (65 mg iron) tablet 325 mg PO DAILY sildenafil (pulm.hypertension) 20 mg tablet 20 mg PO DAILY PRN (Reason: sexual activity) Qty: 90 3RF Rx Instructions: Take 1-5 tablets as needed for sexual activity Do not exceed 100mg daily cyanocobalamin (vitamin B-12) 500 mcg tablet 500 mcg PO QAM metoprolol succinate 25 mg tablet extended release 24 hr 25 mg PO BID Qty: 60 2RF Rx Instructions: TAKES AT NOON & HS gabapentin 400 mg capsule 400 mg PO TID Rx Instructions: TOTAL DOSE 500 MG--TAKES WITH 100 MG CAP. gabapentin 100 mg Capsule 100 mg PO TID Rx Instructions: TOTAL DOSE 500 MG--TAKES WITH 400 MG CAP. PreserVision AREDS-2 250-90-40-1 mg Capsule 1 tab PO QAM Artificial Tears (cmc) 1 % Drops 1 drp OPHTHALMIC (EYE) QAM cholecalciferol (vitamin D3) [Vitamin D3] 125 mcg (5,000 unit) Tablet 125 mcg PO QAM famotidine 40 mg tablet 40 mg PO QAM zinc sulfate 50 mg zinc (220 mg) Tablet 50 mg PO QAM nystatin 100,000 unit/gram powder 1 applic topical BID PRN (Reason: NEEDED) Rx Instructions: Apply to reddened area around wound on abdomen and to groin. Krames/Other Patient Handouts: Small Bowel Obstruction, Low-Fiber Diet Admission Data Admit Date/Time: 11/23/23 18:32 Attending Provider: Baldo Alvarez Admit Provider: Antonio Curtis Primary Care Provider: Checo Huerta Other Providers: Antonio Curtis; Delta Narayanan Other Interventions: Discharge Summary Assessment (RN) Last Done: 11/24/23 14:41 Hospital Stay Data Consultations 11/23/23 17:32 ED Decision to Admit Stat 11/23/23 20:41 Consult General Surgery Routine Diagnostic Imagining Performed 11/23/23 16:21 CT abd pelvis IV con only Stat Pending Results Patient Have Any Pending Studies at Discharge: No Discharge Instructions Given to Patient (Per Discharging Provider) You were seen for a small bowel obstruction likely due to previous surgical adhesions. You have tolerated the advance in diet well. Continue to advance diet at home. Return or call your primary care provider if symptoms return. Total Time Total Time Spent Total Time Spent (In Minutes): greater than 30 minutes required to complete dishcarge Coding Level of Care Code 22619 INP/OBS DISCH >30 MIN Diagnoses SBO (small bowel obstruction) K56.609 Paroxysmal A-fib I48.0
== END 2023-11-24 15:31 | disposition home health service (06) ==
LOC: ED 15:25 → 3N 15:25 → SUATTDRO 18:32 → 3N 20:28
DX: Z88.6 Allergy status to analgesic agent; Z88.1 Allergy status to other antibiotic agents; Z90.49 Acquired absence of other specified parts of digestive tract; E86.0 Dehydration; Z88.2 Allergy status to sulfonamides; K56.609 Unspecified intestinal obstruction, unspecified as to partial versus complete obstruction; K63.2 Fistula of intestine; I48.0 Paroxysmal atrial fibrillation; Z79.899 Other long term (current) drug therapy